=== PATIENT | female | born 1950 | race American Indian/Alaskan Native ===

== ENCOUNTER 2017-04-21 09:25 | Inpatient (IN) | payer MEDICARE, OTHER ==
[2017-04-21] MEDS ORDERED: Famotidine 20mg/50ml 50 ML IVPB STA (10:14)
[2017-04-21] MEDS ORDERED: Famotidine 20mg/50ml 20 MG/50 ML BAG IVPB STA (10:16)
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
[2017-04-21 10:37] LABS: BASO # 0.02 K/mm3 (0.0-2.0); BASO % 0.2 % (0.0-3.0); EOS # 0.2 (0.0-0.7); EOS % 1.7 % (1.5-5.0); GRAN % 71.5 % (50.0-68.0); HEMOGLOBIN 12.4 gm/dL (12.0-16.0); LYMPH % 21.8 % (22.0-35.0); MEAN CELL VOLUME 84.5 fL (80.0-105.0); MEAN CORPUSCULAR HEMOGLOBIN 27.9 pg (25.0-35.0); MEAN CORPUSCULAR HGB CONC 33.1 g/dl (31.0-37.0); MONO # 0.5 (0.1-0.6); MONO % 4.8 % (1.0-6.0); PLATELET COUNT 342 10^3/uL (120.0-450.0); RBC 4.44 10^6/uL (3.5-6.1); RED CELL DISTRIBUTION WIDTH 14.8 % (11.5-14.5); WHITE BLOOD COUNT 9.4 10^3/ul (4.5-11.0)
[2017-04-21 10:46] LABS: ALB/GLOB RATIO 1.1 (1.1-1.8); ALBUMIN 4.4 g/dL (3.0-4.8); ALT/SGPT 20 U/L (7-56); AST/SGOT 34 U/L (15-39); BLOOD UREA NITROGEN 8 mg/dL (7-21); CALCIUM 10.1 mg/dL (8.4-10.5); GFR AFRICAN-AMERICAN > 60; GFR NON-AFRICAN AMERICAN > 60; LIPASE 211 U/L (23-300)
--- NOTE | 2017-04-21 11:28 | CT ---
PROCEDURE: CT Abdomen and Pelvis without intravenous contrast HISTORY: ruq R flank pain r/o kid stone r/o cholecystitis COMPARISON: 04/07/2017 PET-CT TECHNIQUE: Without oral or IV contrast. Contrast Dose: Radiation dose: Total exam DLP = 1230 mGy-cm. This CT exam was performed using one or more of the following dose reduction techniques: Automated exposure control, adjustment of the mA and/or kV according to patient size, and/or use of iterative reconstruction technique. FINDINGS: LOWER THORAX: Multiple pulmonary nodules are seen the largest measuring 25 mm. LIVER: Several hypodense lesions are seen in the liver which were not apparent on the recent PET-CT. These are suspicious for metastatic disease. GALLBLADDER AND BILE DUCTS: Unremarkable. PANCREAS: There is enlargement of the pancreatic head similar to the previous exam. This could also be secondary to adjacent lymph nodes SPLEEN: Unremarkable. ADRENALS: Unremarkable. No mass. KIDNEYS AND URETERS: Unremarkable. No hydronephrosis. No solid mass. VASCULATURE: Unremarkable. No aortic aneurysm. BOWEL: Unremarkable. No obstruction. No gross mural thickening. APPENDIX: Unremarkable. Normal appendix. PERITONEUM: Unremarkable. No free fluid. No free air. LYMPH NODES: Possible conglomerate lymph node mass adjacent to the pancreatic head as noted on previous PET-CT BLADDER: Unremarkable. REPRODUCTIVE: Unremarkable. BONES: No acute fracture. OTHER FINDINGS: None. IMPRESSION: Multiple pulmonary nodules. New metastatic lesions in the liver. Mass within or adjacent to head of pancreas similar to recent PET-CT. No acute intra-abdominal findings
--- NOTE | 2017-04-21 14:36 | CARD ---
APPROVED REPORT EKG Measurement Heart [id number] SD [id number] <Conclusion> Normal sinus rhythm Nonspecific T wave abnormality Abnormal ECG
[2017-04-21] MEDS ORDERED: GlipiZIDE 10 mg SR Tab PO SCH (16:24)
[2017-04-21] MEDS: Insulin Lispro (humaLOG) LOW Coverage SC SCH ×2 (17:20→22:58)
[2017-04-21] MEDS: GlipiZIDE 10 mg SR Tab PO SCH (17:40)
--- NOTE | 2017-04-21 18:49 | CON ---
DATE: 04/21/2017 REFERRING PHYSICIAN: Dr. Ferrara. REASON FOR CONSULT: Chronic obstructive lung disease, multiple lung nodules, probably metastatic dis ease. HISTORY OF PRESENT ILLNESS: This is a 66-year-old female with history of chronic obstructive lung di sease, hypertension, hyperlipidemia, fibromyalgia, diabetes, obesity, sleep apnea syndrome but noncom pliant with the CPAP, smoker, history of alcohol abuse. Has abdominal pain. No dysuria. No leg carter n or leg swelling. PAST MEDICAL HISTORY: Chronic obstructive lung disease, obstructive sleep apnea syndrome, major depr ession, schizoaffective disorder, hypertension, hyperlipidemia, chronic obstructive lung disease, fib romyalgia, diabetes, diverticulitis, degenerative joint disease, history of alcohol abuse. SOCIAL HISTORY: Just recently stopped smoking and also recently stopped drinking alcohol. ALLERGIES: None known. FAMILY HISTORY: No significant cardiopulmonary disease reported. MEDICATIONS: She was given Zofran ER, also received ____ Toradol. HOME MEDICATIONS: Include Aldactone, Seroquel, Lyrica, nicotine, Singulair, metoprolol tartrate, met formin, Zestril, Xyzal, glipizide, Lopid, Lasix, Nexium, Cymbalta, Lipitor and Xanax p.r.n. REVIEW OF SYSTEMS: No headache, no rhinitis ____ short of breath with exertion. No chest pain, no n ausea. Does have nausea, abdominal pain. No dysuria. No leg pain or leg swelling. PHYSICAL EXAMINATION: GENERAL: Sitting up in a chair in no acute distress. VITAL SIGNS: Temp is 98, heart rate is 78, respiratory rate is 18, blood pressure 138/85, pulse ox 9 8% on room air. HEENT: Moist mucous membrane. Crowded airway. Mallampati score is 4. NECK: Supple. No JVD. LUNGS: Has a fair airflow with few rhonchi. HEART: S1, S2. ABDOMEN: Positive bowel sounds, nontender, nondistended. EXTREMITIES: There is no edema. NEUROLOGIC: Awake, alert, follows simple commands. LABORATORY DATA: Shows hemoglobin 12.4, hematocrit 37.5, WBC 9.4, platelet is 342. Sodium 143, pota ssium 2.9, chloride 107, bicarbonate 25, BUN 8, creatinine 0.6, glucose 143, calcium 10.1, total bili robertson 0.4, AST 34, ALT 20, alkaline phosphatase is 83, albumin is 4.4. Total protein 8.4, globulin i s 4.0. Lipase is 211. Stool occult blood has been negative in the past. Had a CAT scan of the abdo men and pelvis done in ER today which shows multiple pulmonary nodules, new metastatic lesions in the liver, mass within or adjacent to the head of the pancreas similar to the recent PET scan. ____ was done in 03/2017 which shows mild increase FDG uptake in the lung nodules suspicious for metastatic d isease, soft tissue mass lesion at the upper abdomen adjacent to the pancreatic head. IMPRESSION AND PLAN: Pancreatic head mass with nodules in the lungs, history of major depression, sc hizoaffective disorder, chronic obstructive lung disease, obstructive sleep apnea syndrome, diabetes, hypertension, noncompliant with the medication, history of alcohol abuse. We will get GI consult fo r possible biopsy, inhaled bronchodilator, gastric prophylaxis, DVT prophylaxis, Nicoderm patch. Con tinue home medication. Thank you and will follow with you. Linnea Stephen MD cc: [id number] TT: 04/21/2017 18:48:42 Confirmation # [id number] Dictation # [id number] [place]
[2017-04-21] MEDS ORDERED: Pneumococcal 23-Valent Vaccine IM ONE (19:19)
[2017-04-21 19:20] VITALS: BMI 38.6
[2017-04-21] MEDS: Albuterol-Ipratrop 3 mg / 0.5 (3 ml) UD IH SCH (19:49)
--- NOTE | 2017-04-21 20:14 | CON ---
DATE: 04/21/2017 This patient was seen and evaluated earlier. HISTORY OF PRESENT ILLNESS: This is a 66-year-old patient with a past medical history of schizophrenia, history of hypertension, dyslipidemia, chronic obstructive pulmonary disease, fibromyalgia, diabetes mellitus who presented to the Emergency Room with right-sided abdominal pain, right upper abdominal pain and back pain. The patient complains of nausea. She had a CAT scan done in the ER without p.o. or IV contrast, suspected to have a pancreatic mass and also some hepatic lesions. GI consult was requested to evaluate. The patient is extremely noncompliant. History of admissions in the past. These previous admissions reviewed. Admissions in the past for diverticulitis. The patient had an extensive workup in the past including MRI and CAT scan. No focal pancreatic lesion was noticed. The liver lesion appeared to be cystic at that time. Patient has been non compliant with followup SOCIAL HISTORY: Ex-smoker, history of excessive ETOH. ALLERGIES: No known drug allergies. FAMILY HISTORY: Noncontributory. REVIEW OF SYSTEMS: Positive as above. Other systems reviewed and negative. PHYSICAL EXAMINATION: GENERAL: The patient is lying on the bed, not in acute distress. VITAL SIGNS: Temperature is 97.9, pulse 92, blood pressure 184/113, respirations 18, blood pressure is 145/94. HEENT: Atraumatic, anicteric. NECK: Supple. HEART: S1, S2 heard. LUNGS: Bilateral air entry present. ABDOMEN: Soft, no obvious tenderness at this time. EXTREMITIES: No edema. No cyanosis. NEUROLOGIC: Alert, oriented. Moves all the extremities. LABORATORY DATA: Hemoglobin 12.4, hematocrit 37.5, WBC is 9.4, platelets 242. Chemistry is essentially unremarkable. LFTs are normal. The CAT scan of the abdomen and pelvis was reviewed. IMPRESSION: This 66-year-old patient was admitted with right-sided abdominal pain radiating to the back. The CT done in without p.o. or IV contrast reported multiple pulmonary nodules and a lesion in the liver and a mass within of the head of the pancreas similar to recent PET CT. PET CT shows mild increase in uptake in the lung nodules and also a soft tissue mass in the upper abdomen adjacent to the pancreatic head showing increased FDG uptake may represent conglomerate lymphadenopathy. IMPRESSION: 1. Differential diagnosis in our case should include pancreatic lesion, rule out lymphoma, rule out hepatic lesions, rule out mets or lung lesions. The patient would benefit from MRI of the abdomen with contrast to further evaluate. We will also consider endoscopy, ultrasound to evaluate the pancreatic lesion. 2. Pulmonary lesions; rule out metastatic disease. 3. Hepatic lesions, rule out cysts; history of cysts, rule out metastatic disease. 4. Other comorbidities, the patient has a history of ETOH abuse in the past, history of diabetes mellitus, obstructive sleep apnea, hypertension. We will continue to closely follow up her care and suggest further management based on the clinical course. Thang Merchant MD cc: [id number] TT: 04/21/2017 20:13:26 Confirmation # [id number] Dictation # [id number] vera MURGUIA
[2017-04-21] MEDS: HYDROmorphone 0.5 mg/0.5 ml ISec IVP PRN (20:33)
[2017-04-22] MEDS: Albuterol-Ipratrop 3 mg / 0.5 (3 ml) UD IH SCH ×4 (01:11→20:56)
--- NOTE | 2017-04-22 01:48 | CP.PCM.PN ---
Subjective - Date & Time of Evaluation Date of Evaluation: 04/22/17 Time of Evaluation: 01:47 - Subjective Subjective: Nurse calls and tells that patient has abdominal pain, back pain and requesting pain medicine. She received 0.5 mg of dilaudid at 8.30 PM. Has an order for dilaudid 0.5mg IV Q6H prn. Pain medication is not due until 02:30 AM. Toradol 30 mg IV was orderd. When I had chance went to evaluate patient.She is pain free, resting comfortably. ROS:Could not get because patient is asleep. This 66 year old woman was admitted Has PMH of DM II, hepatitis C, fribromyalgia, COPD, ZAFAR,anxiety, depression, schizophrenia, appendectomy, colon resection. Objective - Vital Signs/Intake and Output Vital Signs (last 24 hours): Temp Pulse Resp BP Pulse Ox 97.9 F 90 18 145/94 H 97 04/21/17 18:52 04/21/17 19:49 04/21/17 18:52 04/21/17 19:00 04/21/17 16:00 Intake and Output: 04/21/17 04/22/17 18:59 06:59 Intake Total 900 Balance 900 - Medications Medications: Current Medications Albuterol/Ipratropium (Duoneb 3 Mg/0.5 Mg (3 Ml) Ud) 3 ml IH [id number] [facility] Last Admin: 04/22/17 01:11 Dose: Not Given Alprazolam (Xanax) 0.5 mg PO DAILY [facility] PRN Reason: Protocol Alprazolam (Xanax) 1 mg PO HS [facility] PRN Reason: Protocol Last Admin: 04/21/17 21:40 Dose: 1 mg Atorvastatin Calcium (Lipitor) 10 mg PO DIN [facility] Last Admin: 04/21/17 16:45 Dose: 10 mg Duloxetine HCl (Cymbalta) 30 mg PO DAILY [facility] Last Admin: 04/21/17 17:40 Dose: 30 mg Enoxaparin Sodium (Lovenox) 40 mg SC DAILY [facility] PRN Reason: Protocol Famotidine (Pepcid) 40 mg PO 1000 [facility] Furosemide (Lasix) 40 mg PO DAILY [facility] Last Admin: 04/21/17 16:45 Dose: 40 mg Gemfibrozil (Lopid) 600 mg PO BID [facility] Last Admin: 04/21/17 17:40 Dose: 600 mg Glipizide (Glucotrol Xl) 10 mg PO DAILY [facility] Last Admin: 04/21/17 17:40 Dose: 10 mg Hydromorphone HCl (Dilaudid) 0.5 mg IVP Q6H PRN PRN Reason: Pain, Mild (1-3) Last Admin: 04/21/17 20:33 Dose: 0.5 mg Insulin Human Lispro (Humalog Low) 0 units SC [facility] PRN Reason: Protocol Last Admin: 04/21/17 22:58 Dose: Not Given Lisinopril (Zestril) 10 mg PO DAILY [facility] Last Admin: 04/21/17 17:40 Dose: 10 mg Loratadine (Claritin) 10 mg PO DAILY [facility] Metoprolol Tartrate (Lopressor) 25 mg PO DAILY [facility] Last Admin: 04/21/17 16:46 Dose: 25 mg Montelukast Sodium (Singulair) 10 mg PO DAILY [facility] Nicotine (Nicoderm Cq) 1 patch TD DAILY [facility] Ondansetron HCl (Zofran Inj) 4 mg IVP Q4H PRN PRN Reason: Nausea/Vomiting Pantoprazole Sodium (Protonix Ec Tab) 40 mg PO DAILY [facility] Pregabalin (Lyrica) 75 mg PO DAILY [facility] Last Admin: 04/21/17 17:40 Dose: 75 mg Quetiapine Fumarate (Seroquel) 200 mg PO HS [facility] PRN Reason: Protocol Last Admin: 04/21/17 21:32 Dose: 200 mg Spironolactone (Aldactone) 25 mg PO DAILY [facility] Last Admin: 04/21/17 17:41 Dose: 25 mg - Constitutional Appears: Well, No Acute Distress - Head Exam Head Exam: ATRAUMATIC, NORMAL INSPECTION, NORMOCEPHALIC - Eye Exam Eye Exam: Normal appearance - ENT Exam ENT Exam: Normal External Ear Exam - Neck Exam Neck Exam: Normal Inspection - Respiratory Exam Respiratory Exam: NORMAL BREATHING PATTERN - Cardiovascular Exam Cardiovascular Exam: absent: JVD - GI/Abdominal Exam GI & Abdominal Exam: absent: Distended - Rectal Exam Rectal Exam: Deferred - Extremities Exam Extremities Exam: Normal Inspection - Back Exam Back Exam: NORMAL INSPECTION - Neurological Exam Additional comments: Asleep. - Psychiatric Exam Additional comments: Asleep. - Skin Skin Exam: Normal Color Assessment and Plan - Assessment and Plan (Free Text) Assessment: Abdominal pain. Back pain. COPD. DM II. Anxiety. Depression. ZAFAR. Plan: Toradol 30 mg IV was given which helped her. Continue present management.
[2017-04-22 07:52] LABS: HEMOGLOBIN 11.4 gm/dL (12.0-16.0); MEAN CELL VOLUME 84.7 fL (80.0-105.0); MEAN CORPUSCULAR HEMOGLOBIN 27.2 pg (25.0-35.0); MEAN CORPUSCULAR HGB CONC 32.1 g/dl (31.0-37.0); RBC 4.19 10^6/uL (3.5-6.1); RED CELL DISTRIBUTION WIDTH 14.7 % (11.5-14.5); WHITE BLOOD COUNT 7.8 10^3/ul (4.5-11.0)
[2017-04-22 08:08] LABS: ALB/GLOB RATIO 1.1 (1.1-1.8); ALBUMIN 3.8 g/dL (3.0-4.8); ALT/SGPT 18 U/L (7-56); AST/SGOT 34 U/L (15-39); BLOOD UREA NITROGEN 11 mg/dL (7-21); CALCIUM 9.2 mg/dL (8.4-10.5); GFR AFRICAN-AMERICAN > 60; GFR NON-AFRICAN AMERICAN > 60
[2017-04-22] MEDS: Insulin Lispro (humaLOG) LOW Coverage SC SCH ×4 (08:19→22:00)
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
[2017-04-22] MEDS: Pantoprazole 40 mg EC Tab PO SCH (09:24)
[2017-04-22] MEDS: HYDROmorphone 0.5 mg/0.5 ml ISec IVP PRN ×2 (09:24→16:39)
[2017-04-22] MEDS: Enoxaparin 40 mg Syringe SC SCH (09:25)
[2017-04-22] MEDS: GlipiZIDE 10 mg SR Tab PO SCH (09:27)
[2017-04-22] MEDS ORDERED: GlipiZIDE 10 mg SR Tab PO SCH (10:00)
[2017-04-22] MEDS ORDERED: Potassium Chloride 10 mEq ER Tab PO STA (10:16)
--- NOTE | 2017-04-22 11:51 | PN ---
DATE: 04/22/2017 Seen and examined at the bedside earlier this morning. The patient with no new complaints or acute o vernight events reported. The patient does still have abdominal discomfort. She tolerated all of he r breakfast. Awaiting MRI. VITAL SIGNS: Temperature is 97.9, blood pressure 118/81, pulse 81, respirations 18, 93 on room air. LABORATORY DATA: WBC 7.8, hemoglobin is 11.4, hematocrit is 35.5, platelets are 304. Sodium 140, K 3.5, BUN 11, creatinine is 0.7. LFTs are within normal limits. PHYSICAL EXAMINATION: HEENT: Sclerae are anicteric. NECK: Supple. CARDIAC: S1, S2. LUNGS: Decreased breath sounds but good aeration. ABDOMEN: With bowel sounds, soft. No tenderness on palpation at this time. No rebound or guarding. EXTREMITIES: No edema. NEUROLOGIC: Alert, awake, and oriented. ASSESSMENT: A 66-year-old female with complaints of right-sided abdominal pain, status post CT scan of abdomen and pelvis reporting pulmonary nodules and lesions in the liver and mass at the head at th e pancreas, similar to recent PET CT done. Rule out any pancreatic lesions, lymphoma, hepatic lesion s or mets. The patient is awaiting to go for MRI of the abdomen with contrast for further evaluation. We will p ut her on a clear liquid diet for now until she goes for the MRI. The patient has history of diabete s mellitus, obesity, ETOH in the past. PLAN: Consider endoscopic ultrasound to further evaluate this pancreatic lesion. N.p.o. after midni ght. Follow up MRI of the abdomen. The patient is on Lovenox. The patient is also on Protonix. Fo r now, we will discontinue the Pepcid in the morning as patient is already on Protonix 40 daily. If patient needs additional H2 delmy, reconsider at night. The patient was seen and case discussed [facility] Dr. Merchant. Amelia MACIEL cc: [id number] TT: 04/22/2017 11:50:26 Confirmation # [id number] Dictation # [id number] royal
[2017-04-22] MEDS ORDERED: Gadodiamide 287 MG/ML VIAL (20ML) IV ONE (13:14)
--- NOTE | 2017-04-22 16:00 | MRI ---
PROCEDURE: Magnetic Resonance Cholangiopancreatography +MR of the abdomen with and without contrast HISTORY: Rule out mass COMPARISON: PET-CT 04/07/2017. TECHNIQUE: Multiplanar, multisequence MR images of the abdomen were obtained, including heavily T2 weighted MRCP images of the biliary system. Rotating maximum intensity projection images of the biliary system were generated. 15 cc of Omniscan FINDINGS: MRCP: The common bile duct is of a normal caliber. No evidence of choledocholithiasis. No intrahepatic biliary ductal dilatation. LIVER: Multiple liver lesions are seen in the periphery of the right and left lobes of the liver. On the postcontrast study these lesions have a nonenhancing central portion in a ring-enhancing peripheral portion. These range in size from 18 at 36 mm in diameter. GALLBLADDER: Unremarkable. SPLEEN: Unremarkable. PANCREAS: There is a arlet mass adjacent to the head of the pancreas in the portal vein. In total this mass measures 7.3 cm AP x 5.2 cm wide as seen on image 14 series 34 and 5. On the postcontrast study the alret mass posterior to the uncinate process and portal vein show some central necrosis. This node measures 3.4 x 4.7 cm as seen on image 39 of series 1704. ADRENALS: Unremarkable. KIDNEYS: Unremarkable. AORTA: No aneurysm. ASCITES: None. OTHER FINDINGS: As noted on recent CT there are multiple lung nodules. IMPRESSION: Large arlet mass adjacent to the head of the pancreas and portal vein. Multiple metastatic lesions in the liver.
[2017-04-22] MEDS: levoFLOXacin 500 MG TAB PO SCH (16:39)
--- NOTE | 2017-04-22 21:36 | PN ---
DATE: 04/22/2017 ADDENDUM This is an addendum to the GI progress report dictated by Amelia Wright APN. The patient was seen and evaluated earlier today. The patient feeling much better. Tolerating the d iet. Still complains of some discomfort in the right side of the abdomen upper quadrant. IMPRESSION: Requested for the MRI of the abdomen with MRCP, which the report was reviewed. The abraham ent would benefit from the upper gastrointestinal EUS and endoscopy with an endoscopic ultrasound in a.m. Thank you very much for allowing us to participate in the care of the patient. Thang Merchant MD cc: [id number] TT: 04/22/2017 21:35:24 Confirmation # [id number] Dictation # [id number] sn
--- NOTE | 2017-04-22 23:43 | PN ---
DATE: 04/22/2017 REFERRING PHYSICIAN: Dr. Ferrara. SUBJECTIVE: The patient is sitting on side of the bed, night was unremarkable. Complaining about ab dominal epigastric pain, no cough, no sputum production, no nausea, no dysuria. No leg pain or leg s welling. OBJECTIVE: GENERAL: No acute distress. VITAL SIGNS: Temperature is 98, heart rate is 67, respiratory rate is 18, blood pressure 165/61, pul se ox 96% on room air. HEENT: Moist mucous membrane. Crowded airway. NECK: Supple, no JVD. LUNGS: Have a fair airflow with rhonchi. HEART: S1, S2. ABDOMEN: Soft. Mild tenderness in epigastric area. EXTREMITIES: There is no edema. NEUROLOGIC: Awake, alert, follows simple commands. MEDICATIONS: He is on Aldactone 25 mg daily, Claritin 10 mg daily, Cymbalta 30 mg daily, hydromorpho ne 0.5 mg q. 6 hours p.r.n., DuoNeb q. 6 hours, Glucotrol-XL 10 mg daily, insulin coverage, Lasix 4 0 mg daily, Levaquin 500 mg daily, Lipitor 10 mg daily, Lopid 600 mg twice a day, metoprolol tartrat e 25 mg daily, Lovenox 40 mg daily, Lyrica 75 mg daily, NicoDerm patch daily, Protonix 40 mg daily, S eroquel 200 mg at bedtime, Singulair 10 mg daily, Xanax 1 mg at bedtime, also Xanax is 0.5 mg daily, Zestril 10 mg daily, Zofran on a p.r.n. basis. LABORATORY DATA: Shows hemoglobin 11.4, hematocrit 35.5, WBC 7.8, platelet is 304. Sodium 140, pota ssium 3.5, chloride 106, bicarbonate 26, BUN 11, creatinine 0.7, glucose 68, calcium 9.2. AST 34, AL T 18, alkaline phosphatase is 67. Albumin is 3.8. Had an MRCP done today, which shows large nodular mass to the head of the pancreas and portal vein, multiple metastatic lesions in the liver rep orted. IMPRESSION AND PLAN: Pancreatic head mass, also with multiple lung nodules, liver lesions, history o f major depression, schizoaffective disorder, chronic obstructive lung disease, obstructive sleep hat checker ea syndrome, diabetes, hypertension, noncompliance with medication and followup, sleep apnea precauti on need close cardiopulmonary monitoring while sedated. Keep head elevated at 45 degrees. Gas tric prophylaxis. Deep venous thrombosis prophylaxis. Fall precaution. Thank you and will follow w ith you. Linnea Stephen MD cc: [id number] TT: 04/22/2017 23:42:42 Confirmation # [id number] Dictation # [id number] ln
[2017-04-23] MEDS: HYDROmorphone 0.5 mg/0.5 ml ISec IVP PRN ×3 (04:19→23:47)
[2017-04-23] MEDS: Albuterol-Ipratrop 3 mg / 0.5 (3 ml) UD IH SCH ×3 (07:39→19:51)
[2017-04-23 07:52] LABS: BASO # 0.02 K/mm3 (0.0-2.0); BASO % 0.2 % (0.0-3.0); EOS # 0.2 (0.0-0.7); EOS % 1.9 % (1.5-5.0); GRAN # 6.22 (1.4-6.5); HEMOGLOBIN 11.8 gm/dL (12.0-16.0); LYMPH # 1.8 (1.2-3.4); LYMPH % 21.3 % (22.0-35.0); MEAN PLATELET VOLUME 8.8 fl (7.0-11.0); MONO # 0.4 (0.1-0.6); MONO % 4.6 % (1.0-6.0); PLATELET COUNT 311 10^3/uL (120.0-450.0); RBC 4.21 10^6/uL (3.5-6.1); RED CELL DISTRIBUTION WIDTH 14.6 % (11.5-14.5); WHITE BLOOD COUNT 8.6 10^3/ul (4.5-11.0)
[2017-04-23 08:01] LABS: ALB/GLOB RATIO 1.1 (1.1-1.8); ALBUMIN 3.8 g/dL (3.0-4.8); ALT/SGPT 22 U/L (7-56); AST/SGOT 49 U/L (15-39); BLOOD UREA NITROGEN 9 mg/dL (7-21); CALCIUM 9.4 mg/dL (8.4-10.5); GFR AFRICAN-AMERICAN > 60; GFR NON-AFRICAN AMERICAN > 60
[2017-04-23 08:06] LABS: INR 1.04 (0.93-1.08); PARTIAL THROMBOPLASTIN TIME 26.1 Seconds (23.7-30.8); PROTHROMBIN TIME 11.2 Seconds (9.9-11.8)
[2017-04-23] MEDS: Insulin Lispro (humaLOG) LOW Coverage SC SCH ×4 (08:31→21:48)
--- NOTE | 2017-04-23 08:36 | PN ---
DATE: 04/22/2017 SUBJECTIVE: The patient was seen and examined on the bedside on 04/22/2017. Her boyfriend was sitting on the bedside. Getting Dilaudid but still complaining about abdominal pain. Was supposed to go for endoscopy. No fever, no chills, and no dysuria. PHYSICAL EXAMINATION: VITAL SIGNS: Temperature 98, heart rate 67, respiratory rate 18, blood pressure 120 /61, pulse oximetry 96% on room air. HEENT: Head normocephalic, atraumatic. Eyes: PERRLA. Extraocular muscles intact. Conjunctivae are clear. Nose patent. Mucous membranes moist. NECK: Supple. No carotid bruit, JVD or thyromegaly. CHEST: Bilaterally symmetrical. HEART: S1, S2 positive. LUNGS: Clear to auscultation. ABDOMEN: Soft. Bowel sounds present. No organomegaly. EXTREMITIES: No edema, no cyanosis. NEUROLOGIC: The patient is awake, alert, moving all 4 extremities. MEDICATIONS: Aldactone, Claritin, Cymbalta, hydromorphone, DuoNeb, Glucotrol, insulin, Lasix, Levaquin, Lipitor, Lopid, metoprolol, Lovenox, Lyrica, Nicoderm patch, Protonix, Seroquel, Singulair, Xanax, Zestril, Zofran. LABORATORY DATA: Hemoglobin 11.4, hematocrit 35.5, white blood cells 7.8, platelets 304. Sodium 140, potassium 3.5, BUN 11, creatinine 0.7. AST 34, ALT 18. Went for MRCP today which shows a large nodular mass to the head of pancreatic and portal vein, multiple metastatic lesions on the liver reported. ASSESSMENT AND PLAN: The patient is a 66-year-old lady with parapancreatic head mass, also with multiple lung nodules and liver lesions; history of major depression, schizoaffective disorder, obesity, chronic obstructive lung disease , history of ethanol abuse, obstructive sleep apnea syndrome; diabetes mellitus , noncompliant with medication and followup. With sleep apnea precautions, gastric prophylaxis, deep vein thrombosis prophylaxis, fall precautions. I reviewed Dr. Stephen's notes. I reviewed Dr. Merchant's notes also. According to Dr. Merchant, the patient would get benefit with upper gastrointestinal or EUS and endoscopy with endoscopic ultrasound in the a.m. Reviewed Amelia Wright ' notes also. MRCP report reviewed. Dr. Lindo saw the patient for abdominal pain and got stat dose of Dilaudid 0.5 mg at 8:30 p.m. ordered. Repeat labs. Will follow up. Georgina Ferrara MD cc: [id number] TT: 04/23/2017 08:35:28 Confirmation # [id number] Dictation # [id number] mn MTDD
[2017-04-23] MEDS: levoFLOXacin 500 MG TAB PO SCH (09:38)
[2017-04-23] MEDS: Pantoprazole 40 mg EC Tab PO SCH (09:41)
[2017-04-23] MEDS: GlipiZIDE 10 mg SR Tab PO SCH (09:41)
[2017-04-23] MEDS ORDERED: Propofol 10 mg/ml Inj (20 ML) ONE (14:54)
[2017-04-23] MEDS ORDERED: Succinylcholine 200 mg/10 ml Inj IV ONE (14:55)
[2017-04-23] MEDS ORDERED: Rocuronium 10 mg/ml (5 ml) ONE (14:55)
[2017-04-23] MEDS ORDERED: Sevoflurane - Inhalation Anesthetic Liq (250 ml) ONE (14:55)
--- NOTE | 2017-04-23 20:21 | PN ---
DATE: 04/23/2017 SUBJECTIVE: The patient is seen and examined on the bedside, still complaining about abdominal pain, sometimes coughing. No nausea, vomiting, or diarrhea. No hematuria or hematochezia. No swelling of the legs. No chest pain or palpitations. PHYSICAL EXAMINATION: VITAL SIGNS: Temperature 98, pulse 97, blood pressure 140/73, respiratory rate 18. HEAD: Normocephalic, atraumatic. EYES: PERRLA. Extraocular muscles intact. Conjunctivae are clear. Nose is patent. NECK: Supple. No carotid bruit, JVD or thyromegaly. CHEST: Bilaterally symmetrical. HEART: S1, S2 positive. LUNGS: Clear to auscultation. ABDOMEN: Soft, tender in all four quadrants. EXTREMITIES: Negative for edema, no cyanosis. NEUROLOGIC: The patient is awake, alert and moving all 4 extremities. No focal deficits. MEDICATIONS: Aldactone, Claritin, Cymbalta, Dilaudid, DuoNeb, glipizide, insulin, Lasix, Glucotrol, Levaquin, Lopid, Lopressor, Lovenox, Nicoderm patch , Protonix, Seroquel, Singulair, Xanax, Zestril, Zofran. LABORATORY DATA: White blood cells 8.6, hemoglobin 11.8, hematocrit 35.8, platelets 311. ASSESSMENT AND PLAN: The patient is a 66-year-old lady who came with abdominal pain, did esophagogastroduodenoscopy. EGD showed normal EGD. EUS shows fatty pancreatic/celiac lymph nodes. He was noted. Discussion done with Dr. Merchant. According to him, it looks like the patient has lymphoma, needs oncology consult. History of diabetes mellitus, pancreatic head mass, depression, schizoaffective disorder, chronic obstructive lung disease, obstructive sleep apnea syndrome, noncompliant with medication, was actively smoking and drinking. Sleep apnea precautions. Gastric prophylaxis and deep vein thrombosis prophylaxis. Will call oncology consult. Continue pain medication. Reviewed Dr. Stephen's notes. Gastrointestinal and deep venous thrombosis prophylaxis. Will followup. Georgina Ferrara MD cc: [id number] TT: 04/23/2017 20:20:23 Confirmation # [id number] Dictation # [id number] dn MTDD
[2017-04-23] MEDS ORDERED: Levalbuterol 1.25 MG/3 ML Inhal Soln UD IH PRN (21:44)
[2017-04-23] MEDS: Sodium Chloride 0.9% 1,000 ML IV SCH (21:49)
--- NOTE | 2017-04-23 21:57 | PN ---
DATE: 04/23/2017 REFERRING PHYSICIAN: Dr. Ferrara. SUBJECTIVE: She is examined and seen in surgical waiting area, scheduled for endoscopy ____ ultrasou nd biopsy of the pancreatic mass. She feels okay, no significant cough, no shortness of breath. Mild abdominal pain. No dysuria. No leg pain or leg swelling. OBJECTIVE: GENERAL: No acute distress. VITAL SIGNS: Temperature is 98, heart rate is 95, respiratory rate is 18, blood pressure 130/90, pul se ox 92% on room air. HEENT: Moist mucous membranes. Crowded airway. Mallampati score is 4. NECK: Short, thick neck. LUNGS: Has a fair airflow with few rhonchi. HEART: S1, S2. ABDOMEN: Soft, nontender. No organomegaly. EXTREMITIES: There is no edema. NEUROLOGIC: Awake, alert, follows simple commands. MEDICATIONS: She is on Aldactone 25 mg daily, Claritin 10 mg daily, Cymbalta 30 mg daily, Dilaudid 0 .5 mg IV q. 6 hours p.r.n., DuoNeb q. 6 hours, glipizide 10 mg daily, insulin coverage, Lasix 40 mg d aily, Levaquin 500 mg daily, Lipitor 10 mg daily, Lopid 600 mg twice a day, metoprolol tartrate 25 mg daily, Lovenox 40 mg daily, Lyrica 75 mg daily, NicoDerm patch daily, Protonix 40 mg daily, Seroquel 200 mg at bedtime, Singulair 10 mg daily, IV fluid normal saline 100 mL per hour, Xanax 1 mg at bedt milli, Xanax 0.5 mg daily, Zestril 10 mg daily, Zofran on a p.r.n. basis. LABORATORY DATA: Shows hemoglobin 11.8, hematocrit 35.8, WBC 8.6, platelet 311. INR 1.04, PTT is 26 . Sodium 141, potassium 4.0, chloride 106, bicarbonate 27, BUN 9, creatinine 0.7, glucose 126, calci um 9.4, AST 49, ALT 22, and alkaline phosphatase is 70, albumin is 3.8. Had endoscopy done, which shows many malignant appearing lymph nodes that are visualized in the anuj c region, ____ pancreatic region and franko hepatica region. Biopsy was done. IMPRESSION AND PLAN: Pancreatic head mass, has lesions in the liver and multiple nodules in the lung , status post biopsy, depression, schizoaffective disorder, chronic obstructive lung disease, obstruc tive sleep apnea syndrome, diabetes, hypertension. Case discussed with Dr. Merchant. Pulmonary poin t of view, continue bronchodilator, keep head at 45 degree, Nicoderm patch. ____. Close cardiopulmo nary monitoring. Encourage CPAP use at nighttime. Gastric prophylaxis, deep venous thrombosis proph ylaxis. Thank you and will follow with you. Linnea Stephen MD cc: [id number] TT: 04/23/2017 21:57:32 Confirmation # [id number] Dictation # [id number] jn
[2017-04-24] MEDS: Albuterol-Ipratrop 3 mg / 0.5 (3 ml) UD IH SCH ×4 (02:30→20:00)
[2017-04-24] MEDS: HYDROmorphone 0.5 mg/0.5 ml ISec IVP PRN ×3 (05:21→20:15)
[2017-04-24] MEDS: Insulin Lispro (humaLOG) LOW Coverage SC SCH ×4 (08:25→22:00)
[2017-04-24] MEDS: GlipiZIDE 10 mg SR Tab PO SCH (10:25)
[2017-04-24] MEDS: levoFLOXacin 500 MG TAB PO SCH (10:26)
[2017-04-24] MEDS: Pantoprazole 40 mg EC Tab PO SCH (10:26)
[2017-04-24] MEDS: Enoxaparin 40 mg Syringe SC SCH (10:28)
[2017-04-24] MEDS: Sodium Chloride 0.9% 1,000 ML IV SCH ×2 (10:35→14:45)
--- NOTE | 2017-04-24 20:27 | PN ---
DATE: 04/24/2017 The patient seen and examined on the bedside, looks comfortable. Her son was sitting on the bedside also. Still complaining about abdominal pain. Feeling better. Cough is better. Shortness of breath is better. No nausea, vomiting, or diarrhea. No hematuria or hematochezia. No swelling of the legs. No chest pain, no palpitations. PHYSICAL EXAMINATION: VITAL SIGNS: Temperature 98.2, heart rate 94, respiratory rate 18, blood pressure 130/90, pulse oximetry 92% on room air. HEAD: Normocephalic, atraumatic. Eyes: PERRLA. Extraocular muscles intact. Conjunctivae clear. Nose patent. Mucous membranes moist. NECK: Supple. No carotid bruit, JVD or thyromegaly. CHEST: Bilaterally symmetrical. HEART: S1, S2 positive. LUNGS: Clear to auscultation. ABDOMEN: Soft. Bowel sounds. No organomegaly. EXTREMITIES: No edema, no cyanosis. NEUROLOGIC: The patient is awake, alert, moving all 4 extremities. No focal deficit. MEDICATIONS: Aldactone, Claritin, Cymbalta, Dilaudid, DuoNeb, insulin coverage , Levaquin, Lipitor, Lopid, metoprolol, Lovenox, Lyrica, Nicoderm patch, Protonix, Seroquel, Singulair, IV fluids, Xanax, Zestril, Zofran. LABORATORY DATA: Hemoglobin 11.8, hematocrit 35.8, white blood cell 8.6, platelets 311. Sodium 141, potassium 4.0, BUN 9, creatinine 0.7, glucose 126, sodium 9.4. AST 49, ALT 22. ASSESSMENT AND PLAN: The patient is a 66-year-old female with pancreatic head mass. Has lesion in the liver and multiple nodules in the lung, status post biopsy. There were multiple lymph nodes in the abdomen, as per Dr. Merchant. Has depression, schizoaffective disorder, chronic obstructive lung disease, obstructive sleep apnea syndrome, diabetes mellitus, hypertension, noncompliant. Length of time discussion done with Dr. Merchant. Reviewed Dr. Stephen's notes. Continue present treatment, bronchodilators. Keep head elevated at 45 degrees, Nicoderm patch. Close cardiopulmonary monitoring. The patient has a stye on both eyes and for that she is getting Levaquin. Gastrointestinal and deep vein thrombosis prophylaxis. Will repeat labs. We will follow up. Georgina Ferrara MD cc: [id number] TT: 04/24/2017 20:27:11 Confirmation # [id number] Dictation # [id number] royal MURGUIA
--- NOTE | 2017-04-24 20:32 | PN ---
DATE: 04/24/2017 REFERRING PHYSICIAN: Dr. Ferrara. SUBJECTIVE: She is sitting side of the bed, feels okay. Cough is decreased. No nausea, no vomiting . Mild abdominal pain. No dysuria. No leg pain or leg swelling. OBJECTIVE: GENERAL: In no acute distress. VITAL SIGNS: Temp is 98, heart rate is 93, respiratory rate is 20, blood pressure 131/78, pulse ox 9 8% on nasal cannula. HEENT: Moist mucous membranes. Crowded airway. Mallampati score is 4. NECK: Supple. No JVD. LUNGS: Has a fair airflow with a few rhonchi. HEART: S1, S2. ABDOMEN: Soft, nontender, no organomegaly. EXTREMITIES: No edema. NEUROLOGIC: Able to follow simple commands. MEDICATIONS: She is on Aldactone 25 mg daily, Claritin 10 mg daily, Cymbalta 30 mg daily, Dilaudid 0 .5 mg q.6 hours p.r.n., DuoNeb q.6 hour around the clock, glipizide 10 mg daily, insulin coverage, La six 40 mg daily, Levaquin 500 mg daily, Lipitor 10 mg daily, Lopid 600 mg twice a day, metoprolol tar trate 25 mg daily, Lovenox 40 mg subQ daily, Lyrica 75 mg daily, Nicoderm patch daily, Protonix 40 mg daily, Seroquel 200 mg at bedtime, Singulair 10 mg daily, IV fluid normal saline at 100 mL per hour, Xanax 1 mg at bedtime, also Xanax 0.5 mg daily, Xopenex inhaler q.2 hour p.r.n., lisinopril 10 mg da salazar, Zofran p.r.n. basis. IMPRESSION AND PLAN: Pancreatic head mass, lesions in the liver and lungs, status post pancreatic ma ss biopsy, depression, schizoaffective disorder, chronic obstructive pulmonary disease, obstructive s leep apnea syndrome, diabetes, hypertension. Pulmonary point of view, doing okay. Continue bronchod ilator. Keep head elevated at 45 degrees. Nicoderm patch. Pain management. Awaiting for pathology report for further treatment. Thank you and will follow with you. Linnea Stephen MD cc: [id number] TT: 04/24/2017 20:32:31 Confirmation # [id number] Dictation # [id number] dn
[2017-04-25] MEDS: Albuterol-Ipratrop 3 mg / 0.5 (3 ml) UD IH SCH ×6 (01:14→20:30)
--- NOTE | 2017-04-25 01:17 | PN ---
DATE: 04/24/2017 This patient was seen and evaluated earlier. The patient still complains of abdominal pain, epigastric and right upper quadrant. PHYSICAL EXAMINATION: VITAL SIGNS: Temperature is 98.1, pulse 77, blood pressure 138/95, respirations 20, O2 saturation 98%. HEENT: Atraumatic, anicteric. NECK: Supple. HEART: S1, S2 heard. LUNGS: Bilateral air entry present. ABDOMEN: Soft. There was tenderness present in the epigastric right upper quadrant area. EXTREMITIES: No edema, no cyanosis. NEUROLOGIC: Alert, oriented. Moves all the extremities. LABORATORY DATA: Hemoglobin 11.8, hematocrit WBC is 8.6, platelets 311. Chemistry is essentially unremarkable except for the blood glucose IMPRESSION: This 66-year-old patient admitted with suspected pancreatic large masses vs lymph nodes adjacent. The patient also has a history of chronic hepatitis C, The patient has chronic obstructive lung disease. The patient has depression, anxiety, schzoaffective disorder admitted with worsening of the pain in the epigastric and right upper quadrant. The patient had a lung nodule, hepatic lesion had a positive PET scan. Underwent yesterday upper GI endoscopy and endoscopic ultrasound with FNA . She was found to have multiple lymph nodes in the celiac periportal and also perpancreatic area. Visualized the pancreas, although did not reveal any obvious mass. These lymph nodes are measuring up to 3-4 cm the largest one, the smaller one is around a centimeter, in size. Multiple multiple fine needle aspiration biopsies were taken. The specimen also sent for flow cytometry and cell block. The patient would benefit from hematology/oncology evaluation. Thank you very much for allowing us to participate in the care of the patient. We will continue to closely follow up. We will advance the diet today. Thang Merchant MD cc: [id number] TT: 04/24/2017 23:49:22 Confirmation # [id number] Dictation # [id number] aubree MURGUIA
--- NOTE | 2017-04-25 02:06 | CP.PCM.PN ---
Subjective - Date & Time of Evaluation Date of Evaluation: 04/25/17 Time of Evaluation: 02:05 - Subjective Subjective: Seen at bedside. As per nurse has sob. Patient states that she woke up with sob.Has no other complaints. Last nebulizer treatment she has had was at 8 pm last night as per her. Denies nausea, sweating, chest pain, palpitation. States that neb treatment does not help her. Refused BiPAP. Medical record was reviewed. This 66 year old woman was admitted for possible liver , lungs metastasis , sent by PMD to the ER. Has PMH of DM II, hepatitis C, fribromyalgia, COPD, ZAFAR,anxiety, depression, schizophrenia, appendectomy, colon resection. Objective - Vital Signs/Intake and Output Vital Signs (last 24 hours): Temp Pulse Resp BP Pulse Ox 98.1 F 77 20 138/95 H 98 04/24/17 16:53 04/24/17 16:53 04/24/17 16:53 04/24/17 16:53 04/24/17 16:53 Last Vital Signs Temp 98.6 F 04/25/17 02:11 Pulse 86 04/25/17 02:11 Resp 20 04/24/17 16:53 BP 141/87 04/25/17 02:11 Pulse Ox 94 L 04/25/17 02:11 Intake and Output: 04/24/17 04/25/17 18:59 06:59 Intake Total 840 Balance 840 - Medications Medications: Current Medications Albuterol/Ipratropium (Duoneb 3 Mg/0.5 Mg (3 Ml) Ud) 3 ml IH O1PEJPY [facility] Last Admin: 04/25/17 01:14 Dose: Not Given Alprazolam (Xanax) 0.5 mg PO DAILY [facility] PRN Reason: Protocol Last Admin: 04/24/17 10:26 Dose: 0.5 mg Alprazolam (Xanax) 1 mg PO HS [facility] PRN Reason: Protocol Last Admin: 04/24/17 21:39 Dose: 1 mg Atorvastatin Calcium (Lipitor) 10 mg PO DIN [facility] Last Admin: 04/24/17 17:48 Dose: 10 mg Duloxetine HCl (Cymbalta) 30 mg PO DAILY [facility] Last Admin: 04/24/17 10:27 Dose: 30 mg Enoxaparin Sodium (Lovenox) 40 mg SC DAILY [facility] PRN Reason: Protocol Last Admin: 04/24/17 10:28 Dose: 40 mg Furosemide (Lasix) 40 mg PO DAILY [facility] Last Admin: 04/24/17 10:25 Dose: 40 mg Gemfibrozil (Lopid) 600 mg PO BID [facility] Last Admin: 04/24/17 17:48 Dose: 600 mg Glipizide (Glucotrol Xl) 10 mg PO DAILY [facility] Last Admin: 04/24/17 10:25 Dose: 10 mg Hydromorphone HCl (Dilaudid) 0.5 mg IVP Q6H PRN PRN Reason: Pain, Mild (1-3) Last Admin: 04/24/17 20:15 Dose: 0.5 mg Sodium Chloride (Sodium Chloride 0.9%) 1,000 mls @ 100 mls/hr IV .Q10H [facility] Last Admin: 04/24/17 14:45 Dose: Not Given Insulin Human Lispro (Humalog Low) 0 units SC ACHS [facility] PRN Reason: Protocol Last Admin: 04/24/17 17:31 Dose: Not Given Levalbuterol HCl (Xopenex) 1.25 mg IH Q2H PRN PRN Reason: SOB Last Admin: 04/24/17 05:35 Dose: 1.25 mg Levofloxacin (Levaquin) 500 mg PO DAILY [facility] Stop: 05/01/17 10:01 Last Admin: 04/24/17 10:26 Dose: 500 mg Lisinopril (Zestril) 10 mg PO DAILY [facility] Last Admin: 04/24/17 10:25 Dose: 10 mg Loratadine (Claritin) 10 mg PO DAILY [facility] Last Admin: 04/24/17 10:25 Dose: 10 mg Metoprolol Tartrate (Lopressor) 25 mg PO DAILY [facility] Last Admin: 04/24/17 10:26 Dose: 25 mg Montelukast Sodium (Singulair) 10 mg PO DAILY [facility] Last Admin: 04/24/17 10:25 Dose: 10 mg Nicotine (Nicoderm Cq) 1 patch TD DAILY [facility] Last Admin: 04/24/17 10:28 Dose: 1 patch Ondansetron HCl (Zofran Inj) 4 mg IVP Q4H PRN PRN Reason: Nausea/Vomiting Pantoprazole Sodium (Protonix Ec Tab) 40 mg PO DAILY [facility] Last Admin: 04/24/17 10:26 Dose: 40 mg Pregabalin (Lyrica) 75 mg PO DAILY [facility] Last Admin: 04/24/17 10:26 Dose: 75 mg Quetiapine Fumarate (Seroquel) 200 mg PO [facility] PRN Reason: Protocol Last Admin: 04/24/17 21:39 Dose: 200 mg Spironolactone (Aldactone) 25 mg PO DAILY [facility] Last Admin: 04/24/17 10:25 Dose: 25 mg - Labs Labs: 04/23/17 07:00 04/23/17 07:00 PT 11.2 Seconds (9.9-11.8) 04/23/17 07:00 INR 1.04 (0.93-1.08) 04/23/17 07:00 APTT 26.1 Seconds (23.7-30.8) 04/23/17 07:00 - Constitutional Appears: Well, No Acute Distress - Head Exam Head Exam: ATRAUMATIC, NORMAL INSPECTION, NORMOCEPHALIC Additional comments: Obese person. - Eye Exam Eye Exam: Normal appearance - ENT Exam ENT Exam: Mucous Membranes Moist - Neck Exam Neck Exam: Normal Inspection - Respiratory Exam Respiratory Exam: NORMAL BREATHING PATTERN (Bilateral wheezing present.) - Cardiovascular Exam Cardiovascular Exam: REGULAR RHYTHM, +S1 (Normal.), +S2 (Normal.). absent: JVD - GI/Abdominal Exam GI & Abdominal Exam: absent: Distended - Rectal Exam Rectal Exam: Deferred - Extremities Exam Extremities Exam: Normal Inspection, Pedal Edema (+) - Back Exam Back Exam: NORMAL INSPECTION - Neurological Exam Neurological Exam: Alert, Oriented x3 - Psychiatric Exam Psychiatric exam: Normal Affect, Normal Mood - Skin Skin Exam: Normal Color Assessment and Plan - Assessment and Plan (Free Text) Assessment: Sob. Wheezing. COPD exacerbation. DM. Hepatitis. ZAFAR. Colon cancer. Plan: Stat nebulizer treatment with Xopenex 1.25 mg . Lasix 40 mg IV stat. Continue present management.
[2017-04-25] MEDS ORDERED: Levalbuterol 1.25 MG/3 ML Inhal Soln UD IH STA (02:22)
[2017-04-25 08:35] LABS: % IRON SATURATION 4 % (20-55); IRON 14 ug/dL (45-180); TOTAL IRON BINDING CAPACITY 337 ug/dL (265-497)
[2017-04-25] MEDS: Insulin Lispro (humaLOG) LOW Coverage SC SCH ×4 (08:46→22:29)
[2017-04-25] MEDS: Pantoprazole 40 mg EC Tab PO SCH (09:45)
[2017-04-25] MEDS: GlipiZIDE 10 mg SR Tab PO SCH (09:46)
[2017-04-25] MEDS: levoFLOXacin 500 MG TAB PO SCH (09:46)
[2017-04-25] MEDS: Enoxaparin 40 mg Syringe SC SCH (09:54)
[2017-04-25] MEDS: Sodium Chloride 0.9% 1,000 ML IV SCH ×2 (12:44→22:38)
[2017-04-25 13:06] LABS: FOLATE 6.2 ng/mL
--- NOTE | 2017-04-25 15:52 | PN ---
DATE: 04/25/2017 SUBJECTIVE: The patient was seen and examined on the bedside, looks comfortable. Appreciated Dr. Lindo's help last night. According to the patient and the nurse the patient was having shortness of breath last night. Nebulizer treatment was given. The patient got better, still refusing BiPAP. No nausea, vomiting, or diarrhea. No hematuria or hematochezia. No swelling of the legs. No chest pain or palpitations. No headache, no dizziness. Still complaining about abdominal pain, getting better with medication. PHYSICAL EXAMINATION: VITAL SIGNS: Temperature 98.4, pulse 100, blood pressure 134/97, respiratory rate is 20. HEAD: Normocephalic, atraumatic. EYES: PERRLA. Extraocular muscles intact. Conjunctivae clear. Nose patent. Mucous membranes moist. NECK: Supple. No carotid bruit, JVD or thyromegaly. CHEST: Bilaterally symmetrical. HEART: S1, S2 positive. LUNGS: Clear to auscultation. ABDOMEN: Soft. Bowel sounds positive. No organomegaly. EXTREMITIES: No edema, no cyanosis. NEUROLOGIC: The patient is awake, alert and moving all 4 extremities. No focal deficits. MEDICATIONS: Aldactone, Claritin, Cymbalta, Dilaudid, DuoNeb, Glucotrol, insulin, Levaquin. LABORATORY DATA: We do not have labs today, I reviewed old labs. Glucose is 148. INR 14. Saturation 4%. ASSESSMENT AND PLAN: The patient is a 66-year-old lady with anemia, iron deficiency; diabetes mellitus, large mass and also lymph nodes in all adjacent areas, history of chronic hepatitis C, history of chronic obstructive pulmonary disease, depression, anxiety, multiple lymph nodes in the celiac periportal and peripancreatic area. Lymph nodes are up to 3-4 cm in the largest one, the small 1 is around 1 cm. Varies from 1 cm to 3-4 cm in size as per Dr. Merchant. Needle aspiration biopsies were done, waiting for the results of the pathology. Oncology consult called. History of obstructive sleep apnea; the patient is refusing CPAP, very noncompliant; history of drug abuse in the past, history of smoking and drinking, history of schizoaffective disorder. Continue bronchodilators, Nicoderm patch, pain management. Waiting for pathology report for further treatment. Gastrointestinal and deep venous thrombosis prophylaxis. Will follow. Georgnia Ferrara MD cc: [id number] TT: 04/25/2017 15:52:16 Confirmation # [id number] Dictation # [id number] dn MTDD
--- NOTE | 2017-04-25 16:51 | PN ---
DATE: 04/25/2017 SUBJECTIVE: This patient was seen and evaluated earlier. The patient complains of constipation. Sh dorothy complains of a similar pain. PHYSICAL EXAMINATION: VITAL SIGNS: Temperature is 98.4, pulse of 100, and blood pressure is 134/97. HEENT: Atraumatic, anicteric. NECK: Supple. HEART: S1, S2 heard. LUNGS: Bilateral air entry present. ABDOMEN: Soft. Tenderness present in the epigastric and right upper quadrant area. LABORATORY DATA: Hemoglobin 11.8, hematocrit 35.8, WBC is 8.6, platelets 311. Chemistry: CA 19-9 i s normal. CEA is also normal. ____ also is normal. IMPRESSION: This 66-year-old patient is admitted with the epigastric and right upper quadrant pain. The patient had an EGD ____ was done yesterday, found to have large multiple lymph nodes measuring a bout 3-4 cm present. Multiple fine needle aspirations done. Visualized pancreas appears normal othe rwise. The concern is the large lymphadenopathy. The patient also has hepatic lesions and also lung lesions. Hematology pending. Oncology consultation pending. We will follow up the fine needle asp iration results. The patient also has history of chronic hepatitis C. We will request virology stud ies, hepatitis profile and also ____ studies. Thank you very much for allowing us to participate in the care of the patient. Thang Merchant MD cc: [id number] TT: 04/25/2017 16:50:55 Confirmation # [id number] Dictation # [id number] sn
[2017-04-25] MEDS: HYDROmorphone 0.5 mg/0.5 ml ISec IVP PRN (22:34)
--- NOTE | 2017-04-25 22:50 | PN ---
DATE: 04/25/2017 REFERRING PHYSICIAN: Dr. Ferrara. SUBJECTIVE: She is lying in bed. Night was unremarkable. No headache, no rhinitis, no more hemopty sis. Mild abdominal pain. No dysuria. No leg pain or leg swelling. OBJECTIVE: GENERAL: In no acute distress. VITAL SIGNS: Temp is 98, heart rate is 107, respiratory rate is 20, blood pressure is 151/118, pulse ox is 98% on nasal cannula. HEENT: Moist mucous membranes. Crowded airway. Mallampati score is 4. NECK: Supple. No JVD. LUNGS: Have fair airflow with few rhonchi. HEART: S1, S2. ABDOMEN: Soft, nontender. No organomegaly. EXTREMITIES: There is no edema. NEUROLOGIC: Awake, alert, follows simple command. MEDICATIONS: She is on Aldactone 25 mg daily, Claritin 10 mg daily, Cymbalta 30 mg daily, Dilaudid 0 .5 mg q. 4 hours p.r.n., DuoNeb q. 6 hours, lactulose 30 grams daily, glipizide 10 mg daily, insulin coverage, Lasix 20 mg daily, Levaquin 500 mg daily, atorvastatin 40 mg daily, Lopid 600 mg twice a d ay, atorvastatin 25 mg daily, Lovenox 40 mg daily, Lyrica 75 mg daily, Nicoderm patch daily, Protonix 40 mg daily, Seroquel 200 mg at bedtime, Singulair 10 mg daily, IV fluid normal saline 100 mL per ho ur, Xanax 0.5 mg daily and 1 mg at bedtime, Xopenex inhaler q. 6 hours, Zestril 10 mg daily, Zofran o n a p.r.n. basis. LABORATORY DATA: Reviewed and noted. Blood sugars are 147. IMPRESSION AND PLAN: Pancreatic head mass lesion in the liver and lung, status post-pancreatic mass biopsy, depression, schizoaffective disorder, chronic obstructive lung disease, obstructive sleep ase master mechanic ea syndrome, active smoker, diabetes, hypertension. From a pulmonary point of view, doing okay. May have to readjust blood pressure medication, continue bronchodilator, antihypertensive medication. G astric prophylaxis. DVT prophylaxis. Encourage CPAP use. Thank you and will follow with you. Linnea Stephen MD cc: [id number] TT: 04/25/2017 22:49:53 Confirmation # [id number] Dictation # [id number] mn
[2017-04-26] MEDS: Albuterol-Ipratrop 3 mg / 0.5 (3 ml) UD IH SCH ×4 (01:43→19:41)
[2017-04-26] MEDS: Insulin Lispro (humaLOG) LOW Coverage SC SCH ×4 (07:30→22:37)
[2017-04-26] MEDS: GlipiZIDE 10 mg SR Tab PO SCH (10:00)
[2017-04-26] MEDS: Pantoprazole 40 mg EC Tab PO SCH (10:02)
[2017-04-26] MEDS: Enoxaparin 40 mg Syringe SC SCH (10:07)
[2017-04-26 12:15] LABS: HEPATITIS B SURFACE AG NEGATIVE (NEGATIVE)
[2017-04-26 12:20] LABS: HEPATITIS A IGM NEGATIVE (NEGATIVE); HEPATITIS B CORE AB NEGATIVE (NEGATIVE)
[2017-04-26] MEDS: HYDROmorphone 0.5 mg/0.5 ml ISec IVP PRN ×2 (12:42→22:35)
[2017-04-26] MEDS: levoFLOXacin 500 MG TAB PO SCH (13:46)
[2017-04-26 13:47] LABS: HEPATITIS C ANTIBODY REACTIVE (NEGATIVE)
--- NOTE | 2017-04-26 16:13 | PN ---
DATE: 04/26/2017 Seen and examined at the bedside earlier today. The patient complaining of nausea this morning. No vomiting. Denies any abdominal pain at this time. The patient had a bowel movement last night with relief. No reports of any bleeding. VITAL SIGNS: Temperature is 98.2, blood pressure is 173/104, pulse rate 98, respirations 18. The patient on antihypertensive medicine. PHYSICAL EXAMINATION: HEENT: Sclera is anicteric. NECK: Supple. CARDIAC: S1, S2. LUNG SOUNDS: With decreased breath sounds at the bases, but no rales or wheeze. Good air entry. ABDOMEN: With bowel sounds, soft, not tender. ASSESSMENT: This is a 66-year-old female initially admitted for epigastric and right upper quadrant pain. The patient had radiological studies done, found to have lymphadenopathy and reporting a pancreatic head mass. The patient underwent an esophagogastroduodenoscopy and endoscopic ultrasound, found to have large multiple lymph nodes measuring about 3-4 cm, status post fine needle aspiration. Pathology still pending. Pancreas was visualized and appeared normal. The patient also with hepatic and lung lesions, history of chronic hepatitis C. PLAN: We will follow up hepatitis profile studies and follow up the FNA. The patient is also being followed by hematology. Continue present treatment. Continue GI prophylaxis and DVT prophylaxis. The patient was seen and case discussed with Dr. Merchant. Amelia MACIEL cc: [id number] TT: 04/26/2017 16:12:37 Confirmation # [id number] Dictation # [id number] en MTDD
[2017-04-26 17:10] VITALS: RESP 20
--- NOTE | 2017-04-26 20:14 | PN ---
DATE: 04/26/2017 REFERRING PHYSICIAN: Dr. Ferrara. SUBJECTIVE: The patient is lying in the bed, head at 45 degrees, night was unremarkable. Tolerated BiPAP well, clinically feels better, decreased cough, decreased shortness of breath. No abdominal pa in. No dysuria. No leg pain or leg swelling. OBJECTIVE: GENERAL: No acute distress. VITAL SIGNS: Temp is 98, heart rate is 71, respiratory rate is 20, blood pressure 157/66, pulse ox 9 7% on room air. HEENT: Moist mucous membrane. Crowded airway. Mallampati score is 4. NECK: Supple. No JVD. LUNGS: Has scattered rhonchi. HEART: S1, S2. ABDOMEN: Soft, nontender, nondistended. EXTREMITIES: There is no edema. NEUROLOGIC: Awake, alert, follows simple command. MEDICATIONS: She is on Aldactone 25 mg daily, Claritin 10 mg daily, Cymbalta 30 mg daily, Dilaudid 0 .5 mg q. 6 hours p.r.n., DuoNeb q. 6 hours, lactulose 30 mg daily p.r.n., glipizide 10 mg daily, insu hao coverage, Lasix 40 mg daily, Levaquin 500 mg daily, Lipitor 10 mg daily, Lopid 600 mg twice a day , Lopressor 25 mg daily, Lovenox 40 mg subQ daily, Lyrica 75 mg daily, Nicoderm patch daily, Norvasc 5 mg daily, Protonix 40 mg daily, Seroquel 200 mg at bedtime, Singulair 10 mg daily, IV fluid normal saline 100 mL per hour, Xanax 1 mg daily and also 0.5 mg daily. LABORATORY DATA: Reviewed and noted blood sugar this morning 117. Hepatitis C antibody is reactive. IMPRESSION AND PLAN: Pancreatic head mass lesion, also has a lesion in the liver and lungs, status p ost biopsy, depression, schizoaffective disorder, chronic obstructive lung disease, obstructive sleep apnea syndrome, active smoker, diabetes, hypertension, status post biopsy. Awaiting for report. En courage CPAP use. Discontinue IV fluids. Gastric prophylaxis, deep venous thrombosis prophylaxis. Thank you and will follow with you. Linnea Stephen MD cc: [id number] TT: 04/26/2017 20:13:56 Confirmation # [id number] Dictation # [id number] mn
--- NOTE | 2017-04-26 20:23 | PN ---
DATE: 04/26/2017 SUBJECTIVE: This patient was seen and evaluated earlier. The patient complains of constipation, sta rted on lactulose. On examination, the patient does have some tenderness in the epigastric and right upper quadrant area. Status post an endoscopic ultrasound-guided biopsy of the large lymph nodes, peripancreatic and lymph nodes present. Pathology is still pending. Thank you very much for allowing us to participate. We will continue to closely follow up her care a nd suggest further management based on the clinical course. Hepatitis C PCR has been requested and p ending. Thang Merchant MD cc: [id number] TT: 04/26/2017 20:22:26 Confirmation # [id number] Dictation # [id number] jn
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
[2017-04-27] MEDS: Albuterol-Ipratrop 3 mg / 0.5 (3 ml) UD IH SCH ×3 (02:35→13:37)
--- NOTE | 2017-04-27 08:20 | PN ---
DATE: 04/26/2017 SUBJECTIVE: The patient was seen and examined on 04/26/17, lying comfortably in the bed. Had no change in the status overnight. Tolerated BiPAP very well. Coughing is getting better. Shortness of breath is getting better. Abdominal pain is getting better. No dysuria. No swelling of the legs. No chest pain, no palpitation, no headaches. PHYSICAL EXAMINATION: VITAL SIGNS: Temperature 98, heart rate 71, respiratory rate 20, blood pressure 150/66, pulse oximetry 97% on room air. HEENT: Head normocephalic, atraumatic. Eyes: PERRLA. Extraocular muscles intact. Conjunctivae clear. Nose is patent. NECK: Supple. No carotid bruit, JVD or thyromegaly. CHEST: Bilaterally symmetrical. HEART: S1, S2 positive. LUNGS: Clear to auscultation. ABDOMEN: Soft. Bowel sounds present. No organomegaly. EXTREMITIES: No edema, no cyanosis. NEUROLOGIC: The patient is awake, alert, moving all 4 extremities. No focal deficit. MEDICATIONS: Aldactone, Claritin, Cymbalta, Dilaudid, DuoNeb, glipizide, insulin coverage, Levaquin, Lipitor, Lopressor, Lovenox, Lyrica, Nicoderm patch , Norvasc, Protonix, Seroquel, Singulair, IV fluid, Xanax. LABORATORY DATA: We do not have recent labs today, but I reviewed old labs. ASSESSMENT AND PLAN: This is a 66-year-old lady with multiple medical problems , pancreatic head mass lesion, also liver and lung lesion, status post biopsy done. Results are pending. Multiple lymph nodes, Depression, schizoaffective disorder, chronic obstructive lung disease, obstructive sleep apnea syndrome, active smoker, active drinker, diabetes mellitus, hypertension, Status post biopsy, waiting for the report. Encourage BiPAP. Discontinue IV fluid. Gastric prophylaxis, deep venous thrombosis prophylaxis. Appreciated Dr. Stephen 's input. Dr. Rg is the [facility] surgeon who saw the patient. According to Dr. Merchant, looks like the patient has lymphoma. Tumor markers ordered for pancreas are normal as per [facility] surgeon. Severe iron deficiency, likely due to chronic disease, might have iron sucrose 20 mg IV, history of hepatitis C. Bilateral pulmonary nodules suspicious of malignancy, on oxygen 1 by nasal cannular. Pulmonary follow up. Gastrointestinal and deep venous thrombosis prophylaxis. Repeat labs. We will follow up. Georgina Ferrara MD cc: [id number] TT: 04/27/2017 08:19:35 Confirmation # [id number] Dictation # [id number] andres MURGUIA
--- NOTE | 2017-04-27 08:34 | CON ---
DATE: 04/26/2017 CONSULT REQUESTED BY: Georgina Ferrara MD. REASON FOR CONSULTATION: Pancreatic head mass, multiple lesions in the liver, multiple lung nodules, suspicion for malignancy. HISTORY OF PRESENT ILLNESS: The patient is a 66-year-old female admitted to the hospital with shortness of breath. She has abdominal pain, epigastric pain , and right upper quadrant pain. She states that this has been going on for the past 6 months. She has frequent nausea and vomiting and upper abdominal pain. She had a PET scan done as an outpatient recently, which showed multiple subcentimeter pulmonary nodules, multiple liver nodules, and a pancreatic head mass. She underwent EGD and FNA of the pancreatic head mass. Pathology is pending. MRCP done during this hospitalization showed a mass at the pancreatic head measuring 7.3 x 5.2 cm. There was a separate lymph node mass around 4 cm, multiple hypodense nodules in the liver. She has multiple nodules in the lung also subcentimeter. Denies any bleeding from any site. She also lost a few pounds of weight in the past 6 months. She has history of diabetes mellitus. Blood sugar controlled with current medications. History of hepatitis C. History of schizophrenia with prior hospitalization. No issues right now. PAST MEDICAL HISTORY: COPD, fibromyalgia, diabetes mellitus type 2, hepatitis C , depression, schizophrenia. PAST SURGICAL HISTORY: Appendectomy, tubal ligation, colon resection, liver biopsy. FAMILY HISTORY: Noncontributory. PERSONAL HISTORY: Heavy smoker, history of substance abuse, alcohol abuse. ALLERGIES: No known drug allergies. FAMILY HISTORY: She has a very strong family history of cancer. Her sister has uterine cancer. Mother had uterine cancer. Aunt has bone cancer, possible sarcoma, had bilateral leg amputation. One of the cousins had tumor in the heart. HOME MEDICATIONS: Xanax, Cymbalta, Nexium, Lasix, glipizide, Zestril, Glucophage, Lopressor, Singulair, Seroquel, Aldactone. REVIEW OF SYSTEMS: As per HPI. The rest of the 12-point review of systems reviewed and negative. PHYSICAL EXAMINATION: GENERAL: Comfortable in bed, in no acute distress, obese. VITAL SIGNS: Temperature 98.7, heart rate 80 per minute, blood pressure 130/ 40. Pulse ox is 98% room air. HEENT: Within normal limits. NECK: No lymphadenopathy. Mucous membranes moist. Pallor positive. CHEST: Air entry present, equal bilaterally. No added sound. CARDIOVASCULAR: Within normal limits. ABDOMEN: Soft, nontender. No hepatosplenomegaly. EXTREMITIES: No edema. NEUROLOGIC: Awake, alert, and oriented x 3. No focal sensorimotor deficit. SPINE: Normal. LYMPHADENOPATHY: None. LABORATORY DATA: White count 8.6, hemoglobin 11.8, hematocrit 35.8, MCV 85, platelet count 311. Sodium 141, potassium 4. BUN 9, creatinine 0.7. AST 22, ALT 70. CEA 2.4, CA 19.9 of 15.4. Vitamin B12 of 345, folate 6.2. Iron 14% with saturation 4. ASSESSMENT AND PLAN: 1. Pancreatic head mass, multiple liver lesions, hypodense subcentimeter, multiple lung nodules. She had an endoscopic FNA done of the pancreatic head mass. Pathology pending. Tumor markers were ordered - CEA, CA 19.9. Both are within normal limits. There is a possibility of lymphoma. CA 19.9 is usually elevated in a large lesion like this in pancreatic cancer. We will await pathology results. If FNA is noncontributory, then she will need a CT-guided core biopsy of the mass around the pancreatic head. 2. Severe iron deficiency anemia. We will give 1 dose of IV iron 200 mg today. She will need continuation of IV iron as outpatient. 3. Chronic obstructive pulmonary disease. She is currently on oxygen. Pulmonary following. 4. Diabetes mellitus. Blood sugar controlled with current medications. 5. Hepatitis C. GI following. I am not sure she was not treated for hepatitis C in the past. We will continue to follow closely. Thank you, Dr. Ferrara, for allowing us to participate the patient's care. I had a lengthy discussion with the patient. I also discussed the possibility of malignancy - pancreatic cancer versus non-Hodgkin's lymphoma. I told her we are waiting for FNA. If diagnosis cannot be made on FNA, then she will need a CT-guided biopsy. She demonstrated understanding the discussion well. She asked appropriate questions. All were answered to her satisfaction. Anum Rg MD cc: [id number] TT: 04/26/2017 08:46:51 Confirmation # [id number] Dictation # [id number] jn SHANTAL
[2017-04-27] MEDS: Insulin Lispro (humaLOG) LOW Coverage SC SCH ×2 (08:53→11:53)
[2017-04-27 08:55] VITALS: BP 136/87; PULSE 104; TEMP 97.5; O2SAT 93
[2017-04-27] MEDS: GlipiZIDE 10 mg SR Tab PO SCH (12:11)
[2017-04-27] MEDS: Enoxaparin 40 mg Syringe SC SCH (12:12)
[2017-04-27] MEDS: levoFLOXacin 500 MG TAB PO SCH (12:12)
[2017-04-27] MEDS: Pantoprazole 40 mg EC Tab PO SCH (12:13)
--- NOTE | 2017-04-27 16:25 | PN ---
DATE: 04/27/2017 Seen and examined at the bedside earlier today. The patient with no new complaints. Denies any nausea, vomiting, or abdominal pain. She did have a bowel movement last night and it was okay, no diarrhea or bleeding. Tolerating oral intake. The patient states she wants to go home. VITAL SIGNS: Temperature is 97.5, blood pressure is 136/87, pulse 104, respirations 20. LABORATORY DATA: Noted is POC glucose at 104. PHYSICAL EXAMINATION: HEENT: Sclerae are anicteric. NECK: Supple. CARDIAC: S1, S2. LUNGS: Decreased breath sounds at the bases, but good air entry, no rales or wheeze. ABDOMEN: With bowel sounds. Soft, nontender. No rebound or guarding. ASSESSMENT: A 66-year-old female admitted for epigastric and right upper quadrant pain. Abdominal pain is much improved. She was found to have some lymphadenopathy and pancreatic head mass, had endoscopy and endoscopic ultrasound, found to have multiple lymph nodes, status post fine needle aspiration. The pancreas was seen and that appeared normal. She also has hepatic and lung lesions and history of chronic hepatitis C. PLAN: To follow up with her FNA, which is not back yet. Speak to pathology. Continue GI prophylaxis and follow up her hepatitis C RNA. Continue PPI. The patient is on DVT prophylaxis and continue her diet as tolerated. The patient was seen and case discussed with Dr. Merchant. Amelia MACIEL cc: [id number] TT: 04/27/2017 16:25:19 Confirmation # [id number] Dictation # [id number] mn SHANTAL
--- NOTE | 2017-04-27 19:03 | PN ---
DATE: 04/27/2017 REFERRING PHYSICIAN: Dr. Ferrara. SUBJECTIVE: She is lying in the bed, head at 45 degrees. Family is at bedside. Night was unremarka ble, tolerated BiPAP well, mild cough, no sputum production. No chest pain, no nausea, no vomiting, no diarrhea. No leg pain or leg swelling. OBJECTIVE: GENERAL: No acute distress. VITAL SIGNS: Temperature is 98, heart rate is 104, respiratory rate is 20, blood pressure 136/87, pu lse ox % on room air. HEENT: Moist mucous membrane. Crowded airway. Mallampati score is 4. NECK: Supple. No JVD. LUNGS: Has scattered rhonchi, prolonged expiratory phase. HEART: S1, S2. ABDOMEN: Soft, nontender, nondistended. EXTREMITIES: There is no edema. NEUROLOGIC: Awake, alert, follows simple command. MEDICATIONS: Reviewed. Noted no new changes in medication since yesterday. LABORATORY DATA: Reviewed. Blood sugar is 104. Hepatitis C antibody is reactive. Pathology report of biopsy is still pending. IMPRESSION AND PLAN: Pancreatic head mass with a lesion in the liver and lung, status post lymph nod e biopsy, schizoaffective disorder, chronic obstructive lung disease, obstructive sleep apnea syndrom e, active smoker, diabetes, hypertension. Pulmonary point of view, doing well. Continue CPAP while sleeping. Continue IV and inhaled bronchodilator. Gastric prophylaxis. DVT prophylaxis. Awaiting for cytology, pathology report. Thank you and will follow with you. Linnea Stephen MD cc: [id number] TT: 04/27/2017 19:02:15 Confirmation # [id number] Dictation # [id number] mn
--- NOTE | 2017-05-04 06:40 | PQF GENQUE ---
This form is a permanent part of the medical record Dr. Merchant, Clarification of your documentation is requested to better reflect the severity of illness and intensity of treatment of your patient. Indicators present : EGD/EUS/FNA of the celiac lymph node was performed by you in April 23. We just received the cytology report. Please clarify if the adenocarcinoma is primary or secondary neoplasm. Please see EMR for pathology report. Thank you. [] Specify: [] [] Specify: [] [] Specify: [] [] Specify: [] Location in the medical record that reflects the above clinical findings: [] cytology report Treatment Provided: [] PHYSICIAN'S RESPONSE Based on your medical judgment of the clinical indicators outlined above please clarify the following: [] Practitioner response [] If unable to determine, please check the box, sign and date. Present On Admission (POA) Indicator: [] Present at the time of admission [] Not present at the time of admission [] Clinically Undetermined In responding to this query, please exercise your independent professional judgment. The fact that a question is asked does not imply that any particular answer is desired or expected. Thank you for your clarification on this documentation. If you have any questions please call:[ ] * Thank you, [ ]TONE WOLFFbusiness support associate SHANTAL
--- NOTE | 2017-05-17 23:21 | CP.PCM.DIS ---
Provider - Provider Date of Admission: 04/22/17 14:11 Attending physician: Georgina Ferrara MD Primary care physician: Georgina Ferrara MD Consults: discharge delta zimmerman , 04/27 A 66 year old female, whose past medical history includes hypertension, hyperlipidemia, COPD, fibromyaligia, diabetes, diverticulitis, obesity and degenerative joint disease, presents to the emergency department for evaluation of right upper quadrant abdominal pain. Patient reports pain radiated to the back, is constant for the past few months and is associated with nausea and intermittent non bloody non bilious vomiting. Patient states she came in today because she went to her PMD office for a regular lab work and her PMD suggested so come to the emergency department. Patient notes she sweats a lot and believes it is due to a fever but she denies any diarrhea, chest pain, shortness of breath, urinary changes or any other complaints at this time. Time Spent in preparation of Discharge (in minutes): 1 Diagnosis - Discharge Diagnosis (1) Malignant tumor head pancreas Status: Acute (2) Abdominal pain Status: Acute (3) Benzodiazepine overdose Status: Acute (4) Diverticulitis Status: Acute (5) Dizziness Status: Acute (6) Gross hematuria Status: Acute (7) Liver lesion Status: Acute (8) Overdose Status: Acute Hospital Course - Lab Results Lab Results: Most Recent Lab Values WBC 8.6 10^3/ul (4.5-11.0) 04/23/17 07:00 RBC 4.21 10^6/uL (3.5-6.1) 04/23/17 07:00 Hgb 11.8 gm/dL (12.0-16.0) L 04/23/17 07:00 Hct 35.8 % (36.0-48.0) L 04/23/17 07:00 MCV 85.0 fL (80.0-105.0) 04/23/17 07:00 MCH 28.0 pg (25.0-35.0) 04/23/17 07:00 MCHC 33.0 g/dl (31.0-37.0) 04/23/17 07:00 RDW 14.6 % (11.5-14.5) H 04/23/17 07:00 Plt Count 311 10^3/uL (120.0-450.0) 04/23/17 07:00 MPV 8.8 fl (7.0-11.0) 04/23/17 07:00 Gran % 72.0 % (50.0-68.0) H 04/23/17 07:00 Lymph % (Auto) 21.3 % (22.0-35.0) L 04/23/17 07:00 [place] % (Auto) 4.6 % (1.0-6.0) 04/23/17 07:00 Eos % (Auto) 1.9 % (1.5-5.0) 04/23/17 07:00 Baso % (Auto) 0.2 % (0.0-3.0) 04/23/17 07:00 Gran # 6.22 (1.4-6.5) 04/23/17 07:00 Lymph # 1.8 (1.2-3.4) 04/23/17 07:00 [place] # 0.4 (0.1-0.6) 04/23/17 07:00 Eos # 0.2 (0.0-0.7) 04/23/17 07:00 Baso # 0.02 K/mm3 (0.0-2.0) 04/23/17 07:00 PT 11.2 Seconds (9.9-11.8) 04/23/17 07:00 INR 1.04 (0.93-1.08) 04/23/17 07:00 APTT 26.1 Seconds (23.7-30.8) 04/23/17 07:00 Sodium 141 mmol/L (132-148) 04/23/17 07:00 Potassium 4.0 mmol/L (3.6-5.0) 04/23/17 07:00 Chloride 106 mmol/L (98-107) 04/23/17 07:00 Carbon Dioxide 27 mmol/L (21-33) 04/23/17 07:00 Anion Gap 12 (10-20) 04/23/17 07:00 BUN 9 mg/dL (7-21) 04/23/17 07:00 Creatinine 0.7 mg/dL (0.5-1.4) 04/23/17 07:00 Est GFR ( Amer) > 60 04/23/17 07:00 Est GFR (Non-Af Amer) > 60 04/23/17 07:00 POC Glucose (mg/dL) 104 mg/dL (65-110) 04/27/17 11:41 Random Glucose 126 mg/dL (70-110) H 04/23/17 07:00 Calcium 9.4 mg/dL (8.4-10.5) 04/23/17 07:00 Iron 14 ug/dL (45-180) L 04/25/17 07:54 TIBC 337 ug/dL (265-497) 04/25/17 07:54 % Saturation 4 % (20-55) L 04/25/17 07:54 Total Bilirubin 0.3 mg/dL (0.2-1.3) 04/23/17 07:00 AST 49 U/L (15-39) H 04/23/17 07:00 ALT 22 U/L (7-56) 04/23/17 07:00 Alkaline Phosphatase 70 U/L (38-133) 04/23/17 07:00 Lactate Dehydrogenase 404 U/L (333-699) 04/25/17 07:54 Total Protein 7.3 g/dL (5.8-8.3) 04/23/17 07:00 Albumin 3.8 g/dL (3.0-4.8) 04/23/17 07:00 Globulin 3.5 gm/dL 04/23/17 07:00 Albumin/Globulin Ratio 1.1 (1.1-1.8) 04/23/17 07:00 Xord-7-Vxqlpekuvlcdy 2.94 mg/L (<or= 2.51) H 04/25/17 07:54 Lipase 211 U/L (23-300) 04/21/17 10:15 Carcinoembryonic Ag 2.4 ng/mL (0.0-3.0) 04/25/17 07:54 CA 19-9 Antigen 15.4 U/mL (0-37) 04/25/17 07:54 Vitamin B12 345 pg/mL (239-931) 04/25/17 07:54 Folate 6.2 ng/mL 04/25/17 07:54 Hepatitis A IgM Ab Negative (NEGATIVE) 04/26/17 07:00 Hep Bs Antigen Negative (NEGATIVE) 04/26/17 07:00 Hep B Core IgM Ab Negative (NEGATIVE) 04/26/17 07:00 Hepatitis C Antibody Reactive (NEGATIVE) H 04/26/17 07:00 HCV RNA Qual (TMA) Not detected 04/26/17 07:00 - Hospital Course Hospital Course: A 66 year old female, whose past medical history includes hypertension, hyperlipidemia, COPD, fibromyaligia, diabetes, diverticulitis, obesity and degenerative joint disease, presents to the emergency department for evaluation of right upper quadrant abdominal pain. Patient reports pain radiated to the back, is constant for the past few months and is associated with nausea and intermittent non bloody non bilious vomiting. Patient states she came in today because she went to her PMD office for a regular lab work and her PMD suggested so come to the emergency department. Patient notes she sweats a lot and believes it is due to a fever but she denies any diarrhea, chest pain, shortness of breath, urinary changes or any other complaints at this time. CT abdomen showed large mass around head of pancreas around 7.3 x 5.2 cm. She has multiple liver and lung nodules. She had PET scan done recently which showed similar findings. She underwent Endoscopic FNA of mass around pancreas. Pathology is pending. She has strong family history of cancer on maternal side. Her aunt and sister have uterine cancer. Mother uterine cancer. One maternal aunt had tumor in leg ? sarcoma. Abdominal symptoms improved. No nausea now. Discharge Exam - Head Exam Head Exam: ATRAUMATIC, NORMAL INSPECTION, NORMOCEPHALIC - Eye Exam Eye Exam: EOMI, Normal appearance, PERRL Pupil Exam: NORMAL ACCOMODATION, PERRL - GI/Abdominal Exam GI & Abdominal Exam: Normal Bowel Sounds, Tenderness - Rectal Exam Rectal Exam: NORMAL INSPECTION - Exam Exam: Circumcision, NORMAL INSPECTION External exam: NORMAL EXTERNAL EXAM Speculum exam: NORMAL SPECULUM EXAM Bimanual exam: NORMAL BIMANUAL EXAM - Neurological Exam Neurological exam: Alert, CN II-XII Intact, Normal Gait, Oriented x3, Reflexes Normal - Psychiatric Exam Psychiatric exam: Normal Affect, Normal Mood - Skin Skin Exam: Dry, Intact, Normal Color, Warm Discharge Plan - Follow Up Plan Condition: FAIR Disposition: HOME/ ROUTINE Instructions: Acute Abdominal Pain (DC), Acute Abdominal Pain (GEN) Referrals: Georgina Ferrara MD [Primary Care Provider] -
== END 2017-04-27 16:48 | disposition home or self-care (01) | DRG 825 ==
LOC: ED 09:25 → ERH 13:08 → 3RSO 15:10 → OBSVTOIN 04-22 14:11
PROVIDERS: ADMIT Internal Medicine; ATTEND Internal Medicine
PROC: 079 Lymphatic and Hemic Systems, Drainage (ICD-10-PCS; principal; 2017-04-23 14:00)
PROC: 0DJ08ZZ Inspection of Upper Intestinal Tract, Via Natural or Artificial Opening Endoscopic (ICD-10-PCS; 2017-04-23 14:00)
DX: C77.2 Secondary and unspecified malignant neoplasm of intra-abdominal lymph nodes (principal); C80.1 Malignant (primary) neoplasm, unspecified; J44.9 Chronic obstructive pulmonary disease, unspecified; F25.9 Schizoaffective disorder, unspecified; I10 Essential (primary) hypertension; D50.9 Iron deficiency anemia, unspecified; E11.9 Type 2 diabetes mellitus without complications; F32.9 Major depressive disorder, single episode, unspecified; M79.7 Fibromyalgia; G47.33 Obstructive sleep apnea (adult) (pediatric); E78.00 Pure hypercholesterolemia, unspecified; B18.2 Chronic viral hepatitis C; M19.90 Unspecified osteoarthritis, unspecified site; F41.9 Anxiety disorder, unspecified; H00.014 Hordeolum externum left upper eyelid; F17.200 Nicotine dependence, unspecified, uncomplicated; H00.011 Hordeolum externum right upper eyelid; R91.1 Solitary pulmonary nodule; K76.9 Liver disease, unspecified; K86.89 Other specified diseases of pancreas; K59.00 Constipation, unspecified; Z91.19 Patient's noncompliance with other medical treatment and regimen; Z79.84 Long term (current) use of oral hypoglycemic drugs

== ENCOUNTER 2017-05-17 11:04 | Day surgery (SDC) | payer MEDICARE, OTHER ==
[2017-05-17 11:22] VITALS: BMI 34.9
[2017-05-17] MEDS ORDERED: Lidocaine 2% Inj (20ml) ONE (12:03)
[2017-05-17] MEDS ORDERED: Midazolam 2 MG/2 ML VIAL ONE ×3 (12:37→13:50)
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
[2017-05-17 12:56] LABS: BASO # 0.03 K/mm3 (0.0-2.0); BASO % 0.3 % (0.0-3.0); EOS # 0.1 (0.0-0.7); GRAN # 7.37 (1.4-6.5); GRAN % 76.2 % (50.0-68.0); HEMOGLOBIN 12.8 gm/dL (12.0-16.0); LYMPH # 1.6 (1.2-3.4); LYMPH % 16.8 % (22.0-35.0); MEAN CELL VOLUME 82.2 fL (80.0-105.0); MEAN CORPUSCULAR HEMOGLOBIN 27.1 pg (25.0-35.0); MEAN CORPUSCULAR HGB CONC 32.9 g/dl (31.0-37.0); MEAN PLATELET VOLUME 9.2 fl (7.0-11.0); MONO # 0.6 (0.1-0.6); MONO % 5.7 % (1.0-6.0); PLATELET COUNT 483 10^3/uL (120.0-450.0); RBC 4.73 10^6/uL (3.5-6.1); RED CELL DISTRIBUTION WIDTH 15.1 % (11.5-14.5); WHITE BLOOD COUNT 9.7 10^3/ul (4.5-11.0)
[2017-05-17 13:04] LABS: INR 1.04 (0.93-1.08); PARTIAL THROMBOPLASTIN TIME 26.8 Seconds (23.7-30.8); PROTHROMBIN TIME 11.2 Seconds (9.9-11.8)
[2017-05-17] MEDS ORDERED: Oxycodone/Acetaminophen 5/325 mg Tab PO PRN (14:25)
[2017-05-17] MEDS ORDERED: Sodium Chloride 0.45% 1,000 ML IV SCH (14:30)
[2017-05-17 15:30] VITALS: BP 152/86; RESP 18; TEMP 97.5; O2SAT 96
[2017-05-17 17:44] VITALS: PULSE 68
== END 2017-05-17 18:00 | disposition home or self-care (01) ==
LOC: ED 11:04 → SDSVAS 12:47
PROVIDERS: ATTEND Radiology Vascular & Interventional Radiology
DX: C85.90 Non-Hodgkin lymphoma, unspecified, unspecified site (principal); F17.210 Nicotine dependence, cigarettes, uncomplicated; J44.9 Chronic obstructive pulmonary disease, unspecified; E11.9 Type 2 diabetes mellitus without complications; B19.20 Unspecified viral hepatitis C without hepatic coma; Z79.84 Long term (current) use of oral hypoglycemic drugs
CPT/HCPCS: 36561; 76937; 77001; 85025; 85610; 85730; 99152; 99284; C1769; C1788; J0690; J1644; J2250; J2405; J3010; J7030 ×2

== ENCOUNTER 2017-06-01 16:41 | Inpatient (IN) | payer MEDICARE, OTHER ==
[2017-06-01 16:47] VITALS: BMI 36.6
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
[2017-06-01] MEDS ORDERED: Morphine 4 mg/ml ISec IVP STA (17:18)
[2017-06-01 19:52] LABS: BASO # 0.02 K/mm3 (0.0-2.0); BASO % 0.2 % (0.0-3.0); EOS # 0.1 (0.0-0.7); EOS % 1.1 % (1.5-5.0); GRAN # 8.97 (1.4-6.5); GRAN % 74.4 % (50.0-68.0); HEMOGLOBIN 12.9 gm/dL (12.0-16.0); LYMPH # 2.1 (1.2-3.4); LYMPH % 17.7 % (22.0-35.0); MEAN CELL VOLUME 81.8 fL (80.0-105.0); MEAN CORPUSCULAR HEMOGLOBIN 27.9 pg (25.0-35.0); MEAN CORPUSCULAR HGB CONC 34.1 g/dl (31.0-37.0); MEAN PLATELET VOLUME 9.1 fl (7.0-11.0); MONO # 0.8 (0.1-0.6); MONO % 6.6 % (1.0-6.0); PLATELET COUNT 292 10^3/uL (120.0-450.0); RBC 4.62 10^6/uL (3.5-6.1); WHITE BLOOD COUNT 12.1 10^3/ul (4.5-11.0)
[2017-06-01 20:01] LABS: URINE BILIRUBIN NEGATIVE (NEGATIVE); URINE BLOOD NEGATIVE (NEGATIVE); URINE COLOR YELLOW (YELLOW); URINE GLUCOSE (UA) NEGATIVE (NEGATIVE); URINE LEUKOCYTE ESTERASE NEGATIVE Leu/uL (NEGATIVE); URINE NITRATE NEGATIVE (NEGATIVE); URINE PROTEIN TRACE mg/dL (<30 mg/dL); URINE UROBILINOGEN 0.2 E.U./dL (<1 E.U./dL)
[2017-06-01 20:02] LABS: ALB/GLOB RATIO 0.9 (1.1-1.8); ALBUMIN 4.1 g/dL (3.0-4.8); ALT/SGPT 114 U/L (7-56); AST/SGOT 174 U/L (15-39); BLOOD UREA NITROGEN 7 mg/dL (7-21); CALCIUM 9.6 mg/dL (8.4-10.5); GFR AFRICAN-AMERICAN > 60; GFR NON-AFRICAN AMERICAN > 60
[2017-06-01 20:02] LABS: URINE APPEARANCE SL CLOUDY (CLEAR)
[2017-06-01 20:05] LABS: INR 1.18 (0.93-1.08); PARTIAL THROMBOPLASTIN TIME 21.2 Seconds (23.7-30.8); PROTHROMBIN TIME 12.7 Seconds (9.9-11.8)
[2017-06-01 20:29] LABS: URINE WBC 0 - 2 /hpf (0-6)
[2017-06-01 20:30] LABS: URINE BACTERIA SMALL (NEG)
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
--- NOTE | 2017-06-01 23:42 | CT ---
EXAM: CT Abdomen and Pelvis Without Intravenous Contrast CLINICAL HISTORY: 66 years old, female; Pain; Abdominal pain; Flank; Right; Additional info: Hematuria, jaundice, flank pain TECHNIQUE: Axial computed tomography images of the abdomen and pelvis without intravenous contrast. This CT exam was performed using one or more of the following dose reduction techniques: automated exposure control, adjustment of the mA and/or kV according to patient size, and/or use of iterative reconstruction technique. Coronal and sagittal reformatted images were created and reviewed. EXAM DATE/TIME: 06/01/2017 12:00 AM COMPARISON: CT - ABD PELVIS W/O PO OR IV CONT 04/21/2017 10:37:35 AM FINDINGS: Lower thorax: Heart size is normal. There are coronary calcifications. There is no pericardial effusion. There are enlarged nodes in right pericardial fat. Lateral node measures 2.5 x 1.9 cm. Medial node measures approximately 2.5 x 1.8 cm. There is streak artifact from the tip of a central line. There are multiple bilateral pulmonary nodules numerous to count. The ABDOMEN: Liver: There is an interval increase in size and conspicuity of low attenuation masses in the liver. Gallbladder and bile ducts: Gallbladder is distended, at least 10.5 cm in length. Small stones cannot be excluded. Common duct is dilated. There is dilatation of intrahepatic biliary radicles. Pancreas: Pancreatic tail is mildly atrophic. There is a lobulated mass in the pancreatic head and adjacent pancreatic body. Adjacent contiguous peripancreatic adenopathy not be excluded Spleen: unremarkable Adrenals: unremarkable Kidneys and ureters: Right kidney is unremarkable. There is a left renal cyst.There is no pelvocaliectasis or ureterectasis. Stomach and bowel: Stomach is distended with an air-fluid level. Rotation is normal. There is mild proximal small bowel wall thickening. There is no small bowel obstruction. There has been partial right colectomy. There is an ileocolic anastomosis in the right flank.Colon is incompletely distended which limits evaluation.There is diverticulosis. Appendix: Surgically absent PELVIS: Bladder: unremarkable Reproductive: There are coarse calcifications in the uterus.Adnexa are unremarkable. ABDOMEN and PELVIS: Intraperitoneal space: There is no free air or free fluid.. Bones/joints: There are degenerative changes in the osseus structures. Soft tissues: There is a small fat containing ventral hernia. There is a small fat containing umbilical hernia. Vasculature: There are vascular calcifications. Lymph nodes: There is an enlarged node at the left renal hilum, 3.4 x 2.5 cm, image 71 series 601 perivascular retroperitoneal nodes. . IMPRESSION: Multiple bilateral pulmonary nodules consistent with metastases; pericardial adenopathy; increasing pancreatic head/peripancreatic mass now with distended gallbladder and dilated ducts consistent with biliary ductal obstruction; increasing metastatic disease in the liver; right hemicolectomy; diverticulosis without CT findings of diverticulitis Additional findings as described above.
--- NOTE | 2017-06-02 00:13 | CP.PCM.PN ---
Subjective - Date & Time of Evaluation Date of Evaluation: 06/02/17 Time of Evaluation: 00:13 - Subjective Subjective: Patient was seen at bedside. Complainted of abdominal pain,epigastric and RUQ ,sharp/dull painn, 8/10, asking for pain meds. Also has nausea, vomiting, needs medicine for that. Morphine 6 mg IV was give @ 5.20 PM as per nurse. 66 year old woman was admitted for abdominal pain, jaundice,hematuria,lung nodule. Has PMH of HTN, COPD, liver mass, hepatitis C,pancreatic cancer , fibroid, appendectomy. Objective - Vital Signs/Intake and Output Vital Signs (last 24 hours): Temp Pulse Resp BP Pulse Ox 98.0 F 85 16 118/79 95 06/01/17 23:05 06/01/17 23:05 06/01/17 23:05 06/01/17 23:05 06/01/17 21:56 Last Vital Signs Temp 98.0 F 06/01/17 23:05 Pulse 85 06/01/17 23:05 Resp 16 06/01/17 23:05 BP 118/79 06/01/17 23:05 Pulse Ox 95 06/01/17 21:56 - Medications Medications: Current Medications Alprazolam (Xanax) 0.5 mg PO DAILY [facility] PRN Reason: Protocol Atorvastatin Calcium (Lipitor) 10 mg PO DIN [facility] Duloxetine HCl (Cymbalta) 30 mg PO DAILY [facility] Furosemide (Lasix) 40 mg PO DAILY [facility] Gemfibrozil (Lopid) 600 mg PO BID [facility] Glipizide (Glucotrol Xl) 10 mg PO DAILY [facility] Insulin Human Regular (Humulin R Low) 0 units SC ACHS [facility] PRN Reason: Protocol Lisinopril (Zestril) 10 mg PO DAILY [facility] Loratadine (Claritin) 10 mg PO DAILY [facility] Metformin HCl (Glucophage Xr) 1,000 mg PO Q12 [facility] Montelukast Sodium (Singulair) 10 mg PO HS [facility] Last Admin: 06/01/17 23:50 Dose: 10 mg Non-Formulary Medication (Nicotine [Nicotrol]) 10 mg IH Q6 [facility] Pantoprazole Sodium (Protonix Ec Tab) 40 mg PO 0600 [facility] Pregabalin (Lyrica) 75 mg PO DAILY [facility] Quetiapine Fumarate (Seroquel) 200 mg PO HS [facility] PRN Reason: Protocol Last Admin: 06/01/17 23:50 Dose: 200 mg Spironolactone (Aldactone) 25 mg PO DAILY [facility] - Labs Labs: 06/01/17 19:30 06/01/17 19:30 PT 12.7 Seconds (9.9-11.8) H 06/01/17 19:30 INR 1.18 (0.93-1.08) H 06/01/17 19:30 APTT 21.2 Seconds (23.7-30.8) L 06/01/17 19:30 Laboratory Last Values WBC 12.1 10^3/ul (4.5-11.0) H D 06/01/17 19:30 RBC 4.62 10^6/uL (3.5-6.1) 06/01/17 19:30 Hgb 12.9 gm/dL (12.0-16.0) 06/01/17 19:30 Hct 37.8 % (36.0-48.0) 06/01/17 19:30 MCV 81.8 fL (80.0-105.0) 06/01/17 19:30 MCH 27.9 pg (25.0-35.0) 06/01/17 19:30 MCHC 34.1 g/dl (31.0-37.0) 06/01/17 19:30 RDW 18.0 % (11.5-14.5) H 06/01/17 19:30 Plt Count 292 10^3/uL (120.0-450.0) 06/01/17 19:30 MPV 9.1 fl (7.0-11.0) 06/01/17 19:30 Gran % 74.4 % (50.0-68.0) H 06/01/17 19:30 Lymph % (Auto) 17.7 % (22.0-35.0) L 06/01/17 19:30 [place] % (Auto) 6.6 % (1.0-6.0) H 06/01/17 19:30 Eos % (Auto) 1.1 % (1.5-5.0) L 06/01/17 19:30 Baso % (Auto) 0.2 % (0.0-3.0) 06/01/17 19:30 Gran # 8.97 (1.4-6.5) H 06/01/17 19:30 Lymph # 2.1 (1.2-3.4) 06/01/17 19:30 [place] # 0.8 (0.1-0.6) H 06/01/17 19:30 Eos # 0.1 (0.0-0.7) 06/01/17 19:30 Baso # 0.02 K/mm3 (0.0-2.0) 06/01/17 19:30 PT 12.7 Seconds (9.9-11.8) H 06/01/17 19:30 INR 1.18 (0.93-1.08) H 06/01/17 19:30 APTT 21.2 Seconds (23.7-30.8) L 06/01/17 19:30 Sodium 142 mmol/L (132-148) 06/01/17 19:30 Potassium 3.4 mmol/L (3.6-5.0) L 06/01/17 19:30 Chloride 106 mmol/L (98-107) 06/01/17 19:30 Carbon Dioxide 23 mmol/L (21-33) 06/01/17 19:30 Anion Gap 16 (10-20) 06/01/17 19:30 BUN 7 mg/dL (7-21) 06/01/17 19:30 Creatinine 0.7 mg/dL (0.5-1.4) 06/01/17 19:30 Est GFR ( Amer) > 60 06/01/17 19:30 Est GFR (Non-Af Amer) > 60 06/01/17 19:30 Random Glucose 132 mg/dL (70-110) H 06/01/17 19:30 Calcium 9.6 mg/dL (8.4-10.5) 06/01/17 19:30 Total Bilirubin 10.0 mg/dL (0.2-1.3) H 06/01/17 19:30 AST 174 U/L (15-39) H 06/01/17 19:30 ALT 114 U/L (7-56) H 06/01/17 19:30 Alkaline Phosphatase 427 U/L (38-133) H 06/01/17 19:30 Total Protein 8.6 g/dL (5.8-8.3) H 06/01/17 19:30 Albumin 4.1 g/dL (3.0-4.8) 06/01/17 19:30 Globulin 4.6 gm/dL 06/01/17 19:30 Albumin/Globulin Ratio 0.9 (1.1-1.8) L 06/01/17 19:30 Urine Color Yellow (YELLOW) 06/01/17 19:47 Urine Appearance Sl cloudy (CLEAR) 06/01/17 19:47 Urine pH 6.0 (4.7-8.0) 06/01/17 19:47 Ur Specific [place] 1.020 (1.005-1.035) 06/01/17 19:47 Urine Protein Trace mg/dL (<30 mg/dL) H 06/01/17 19:47 Urine Glucose (UA) Negative mg/dL (NEGATIVE) 06/01/17 19:47 Urine Ketones Negative mg/dL (NEGATIVE) 06/01/17 19:47 Urine Blood Negative (NEGATIVE) 06/01/17 19:47 Urine Nitrate Negative (NEGATIVE) 06/01/17 19:47 Urine Bilirubin Negative (NEGATIVE) 06/01/17 19:47 Urine Urobilinogen 0.2 E.U./dL (<1 E.U./dL) 06/01/17 19:47 Ur Leukocyte Esterase Negative Ellie/uL (NEGATIVE) 06/01/17 19:47 Urine RBC 1 - 3 /hpf (0-2) 06/01/17 19:47 Urine WBC 0 - 2 /hpf (0-6) 06/01/17 19:47 Ur Epithelial Cells 3 - 4 /hpf (0-5) 06/01/17 19:47 Urine Bacteria Small (NEG) 06/01/17 19:47 - Constitutional Appears: Well, No Acute Distress - Head Exam Head Exam: ATRAUMATIC, NORMAL INSPECTION, NORMOCEPHALIC - Eye Exam Additional comments: Sclera- yellow. - ENT Exam ENT Exam: Normal External Ear Exam - Neck Exam Neck Exam: Normal Inspection - Respiratory Exam Respiratory Exam: NORMAL BREATHING PATTERN - Cardiovascular Exam Cardiovascular Exam: absent: JVD - GI/Abdominal Exam GI & Abdominal Exam: Soft (Yes.), Tenderness (Mild tenderness in RUQ and epigastric area.), Normal Bowel Sounds. absent: Distended, Firm, Guarding, Rigid, Hernia, Organomegaly, Pulsatile Mass, Rebound - Rectal Exam Rectal Exam: Deferred - Exam Additional comments: Deferred. - Extremities Exam Extremities Exam: Normal Inspection - Back Exam Back Exam: NORMAL INSPECTION - Neurological Exam Neurological Exam: Alert, Oriented x3 - Psychiatric Exam Psychiatric exam: Normal Affect, Normal Mood - Skin Skin Exam: Pallor Assessment and Plan - Assessment and Plan (Free Text) Assessment: RUQ pain. Epigastric pain. Hepatitis C Liver mass. Lung nodules. Peripancreatic cancer. Icterus. Hematuria. Flank pain. DM II. Nausea/Vomiting. Rheumatoid arthritis. GERD. Plan: Zofran 4 mg IV stat. Morphine 6 mg IV was given. Continue present management.
[2017-06-02] MEDS: NICOTINE 10 MG IH SCH ×4 (00:56→17:12)
[2017-06-02] MEDS: Pantoprazole 40 mg EC Tab PO SCH (06:00)
[2017-06-02 07:21] LABS: URINE BILIRUBIN LARGE (NEGATIVE); URINE BLOOD NEGATIVE (NEGATIVE); URINE GLUCOSE (UA) NEGATIVE (NEGATIVE); URINE LEUKOCYTE ESTERASE SMALL Leu/uL (NEGATIVE); URINE NITRATE POSITIVE (NEGATIVE); URINE PROTEIN 30 mg/dL (<30 mg/dL)
[2017-06-02 07:24] LABS: URINE COLOR BROWN (YELLOW)
[2017-06-02 07:36] LABS: URINE APPEARANCE SL CLOUDY (CLEAR); URINE BACTERIA FEW (NEG); URINE RBC 0 - 2 /hpf (0-2)
[2017-06-02] MEDS: Insulin Reg-LOW-Coverage SC SCH ×4 (07:53→21:37)
[2017-06-02] MEDS: HYDROmorphone 0.5 mg/0.5 ml ISec IVP PRN ×4 (09:00→22:44)
[2017-06-02] MEDS ORDERED: GlipiZIDE 10 mg SR Tab PO SCH (10:00)
[2017-06-02] MEDS ORDERED: Potassium Chloride 20 mEq ER Tab PO ONE (14:00)
[2017-06-02] MEDS: Albuterol-Ipratrop 3 mg / 0.5 (3 ml) UD IH SCH ×2 (14:05→19:42)
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
[2017-06-02] MEDS: Enoxaparin 40 mg Syringe SC SCH (15:10)
[2017-06-02] MEDS: POLYETHYLENE GLYCOL 3350 17 GM/Dose PACKET PO SCH (16:10)
[2017-06-02] MEDS ORDERED: Gadodiamide 287 MG/ML VIAL (20ML) IV ONE (17:23)
--- NOTE | 2017-06-02 17:53 | CON ---
DATE: 06/02/2017 REFERRING PHYSICIAN: Dr. Ferrara. REASON FOR CONSULTATION: Chronic obstructive lung disease, sleep apnea syndrome, recently diagnosed with metastatic cancer, mets to liver and lungs. HISTORY OF PRESENT ILLNESS: This is a 66-year-old female with known history of chronic obstructive lung disease, obstructive sleep apnea syndrome, hepatitis C, known to have metastatic disease with tumor, head of the pancreas with mets to the lungs and liver, comes into the ER with abdominal pain, family noticed her eyes to be jaundiced, had some nausea, no dysuria, no leg pain or leg swelling. PAST MEDICAL HISTORY: Chronic obstructive lung disease, hypertension, history of TIAs, diabetes, pancreatic cancer with metastatic disease, degenerative joint disease, GERD and uterine fibroids. ALLERGIES: None known. SOCIAL HISTORY: She is smoker. Denies any alcohol use. FAMILY HISTORY: Significant for sleep apnea and obstructive lung disease. MEDICATIONS: She is on Aldactone 25 mg daily, Claritin 10 mg daily, Cymbalta 30 mg daily, Dilaudid 0.5 mg q. 4 hours p.r.n., glipizide 10 mg daily, potassium 40 mEq daily, Lasix 40 mg daily, Lipitor 10 mg daily, Lopid 600 mg twice a day, Lyrica 75 mg daily, nicotine patch 10 mg q. 6 hour, Protonix 40 mg daily, Seroquel 200 mg at bedtime, Singulair 10 mg daily, Xanax 0.5 mg daily, Zestril 10 mg daily. REVIEW OF SYSTEMS: No headache, no rhinitis. Does have some cough and shortness of breath. No chest pain. Has abdominal pain. Icterus eyes, some nausea. No dysuria. No leg pain or leg swelling. PHYSICAL EXAMINATION: GENERAL: Sitting up in a side of the bed with decrease abdominal pain. VITAL SIGNS: Temp is 98, heart rate is 93, respiratory rate is 20, blood pressure is 114/80, pulse ox 98% on room air. HEENT: Moist mucous membranes. Crowded airway. Mallampati score is 4. NECK: Supple. No JVD. LUNGS: A few scattered crackles. HEART: S1 and S2. ABDOMEN: Positive epigastric area tenderness. EXTREMITIES: There is no edema. NEUROLOGICAL: Awake, alert. Follows simple commands. LABORATORY DATA: Shows hemoglobin 12.9, hematocrit 37.8, WBC 12.1, and platelet count is 292. INR is 1.18. PTT is 21. Sodium 142, potassium 3.4, chloride 106, bicarbonate 23, BUN 7, creatinine 0.7, glucose 132, calcium 9.6. Total bilirubin 10.0. AST is 174, ALT is 114, alkaline phosphatase is 427, albumin is 401. CT of the abdomen and pelvis done last night, which shows multiple bilateral pulmonary nodules consistent the metastatic disease and also pericardial adenopathy, increased pancreatic head/peripancreatic mass now with distention of gallbladder and dilated ducts consistent the biliary duct obstruction, increased metastatic disease in the liver. IMPRESSION AND PLAN: Metastatic pancreatic cancer to the liver, lungs and probably no obstructing the duct causing her decompensated liver disease with extra size, also has a chronic obstructive lung disease, obstructive sleep apnea syndrome, hepatitis C. I agree with Dr. Ferrara plan and management. GI consult has been called. MRCP has been ordered. Continue bronchodilators, keep head at 45 degrees. avoid sedatives, supportive care. Overall poor prognosis. Gastric and DVT prophylaxis. Case discussed with Dr. Ferrara and spoke to nursing staff and also spoke to family. Thank you. We will follow with you. Linnea Stephen MD
--- NOTE | 2017-06-02 19:56 | MRI ---
EXAM: MR Abdomen Without and With Intravenous Contrast CLINICAL HISTORY: The patient age is 66 years old and is female; Signs and symptoms; Other: Jaundice; Additional info: Juandice/dilated biliary ducts/liver mass/w mriabd Facility exam id and description: Mri mrcpabd mrcp and abd w/wo contrast TECHNIQUE: Multiplanar magnetic resonance images of the abdomen without and with intravenous contrast. EXAM DATE/TIME: 06/02/2017 9:30 AM COMPARISON: CT - ABD PELVIS W/O PO OR IV CONT 06/01/2017 10:38:31 PM FINDINGS: Lower thorax: Multiple pulmonary nodules are visualized in the lung bases, concerning for metastatic disease. One of the larger nodules in the right lower lobe on series 6 image 107 and measures 2.6 x 2.2 cm. A few enlarged pericardial lymph nodes are identified. One of these lymph nodes measures 2.3 x 1.3 cm. There is a band of atelectatic change at the right lung base. Liver: Multiple hepatic masses are visualized, consistent with metastases. One of the larger hepatic masses is visualized within the right hepatic lobe measuring 3.4 x 2.7 cm. Gallbladder and bile ducts: The gallbladder is distended, without discrete gallstones. There is biliary dilatation. The common bile duct measures 1.4 cm in diameter. The common bile duct tapers, and is not visualized distally. Pancreas: Pancreatic/peripancreatic masses are identified, concerning for malignancy. Posterior superior to the pancreas, this measures 5.7 x 3.6 x 3.7 cm. This causes mass effect on the distal common bile duct. Superior to the pancreatic body, this measures 5.6 x 3.0 x 2.7 cm. There is no significant dilatation of the pancreatic duct. Spleen: No splenomegaly. Adrenals: No mass. Kidneys and ureters: T2 hyperintense bilateral renal cysts are identified. Of the upper pole the left kidney, this measures 2.3 cm. No hydronephrosis. Stomach and bowel: There is mild wall thickening of the antrum of the stomach, suggestive of gastritis. Intraperitoneal space: No significant fluid collection. Vasculature: No abdominal aortic aneurysm. Lymph nodes: There is an enlarged lymph node anterior to the right psoas muscle at the level of the right renal hilum measuring 2.3 x 1.9 cm. IMPRESSION: 1. Multiple pulmonary nodules are visualized in the lung bases, concerning for metastatic disease. 2. The gallbladder is distended, without discrete gallstones. 3. Multiple hepatic masses are visualized, consistent with metastases. 4. A few enlarged pericardial lymph nodes are identified. 5. There is biliary dilatation. The common bile duct measures 1.4 cm in diameter. The common bile duct tapers, and is not visualized distally. 6. Pancreatic/peripancreatic masses are identified, concerning for malignancy. Posterior superior to the pancreas, this measures 5.7 x 3.6 x 3.7 cm. This causes mass effect on the distal common bile duct. Superior to the pancreatic body, this measures 5.6 x 3.0 x 2.7 cm. 7. There is an enlarged lymph node anterior to the right psoas muscle at the level of the right renal hilum measuring 2.3 x 1.9 cm. 8. There is mild wall thickening of the antrum of the stomach, suggestive of gastritis. 9. Additional findings described above.
--- NOTE | 2017-06-02 22:54 | CP.PCM.PN ---
Subjective - Date & Time of Evaluation Date of Evaluation: 06/02/17 Time of Evaluation: 22:54 - Subjective Subjective: Patient was seen because of nausea and epigastric pain. Has no other complaints now She is on dilaudid. ROS:Negative except as mentioned above. 66 year old female was admitted for abdominal pain, hematuria, jaundice,lung nodule. PMH:Pancreatic cancer , HTN, COPD, liver mass, hepatitis C,fibroid, appendectomy. Objective - Vital Signs/Intake and Output Vital Signs (last 24 hours): Temp Pulse Resp BP Pulse Ox 98.4 F 80 20 131/76 96 06/02/17 16:00 06/02/17 19:43 06/02/17 16:00 06/02/17 16:00 06/02/17 16:00 Intake and Output: 06/02/17 06/03/17 18:59 06:59 Intake Total 300 Balance 300 - Medications Medications: Current Medications Albuterol/Ipratropium (Duoneb 3 Mg/0.5 Mg (3 Ml) Ud) 3 ml IH [id number] [facility] Last Admin: 06/02/17 19:42 Dose: 3 ml Alprazolam (Xanax) 0.5 mg PO DAILY [facility] PRN Reason: Protocol Last Admin: 06/02/17 09:02 Dose: 0.5 mg Atorvastatin Calcium (Lipitor) 10 mg PO DIN [facility] Last Admin: 06/02/17 16:10 Dose: 10 mg Duloxetine HCl (Cymbalta) 30 mg PO DAILY [facility] Last Admin: 06/02/17 09:01 Dose: 30 mg Enoxaparin Sodium (Lovenox) 40 mg SC DAILY [facility] PRN Reason: Protocol Last Admin: 06/02/17 15:10 Dose: 40 mg Furosemide (Lasix) 40 mg PO DAILY [facility] Last Admin: 06/02/17 09:01 Dose: 40 mg Gemfibrozil (Lopid) 600 mg PO BID [facility] Last Admin: 06/02/17 17:11 Dose: 600 mg Glipizide (Glucotrol Xl) 10 mg PO DAILY [facility] Last Admin: 06/02/17 09:01 Dose: 10 mg Hydromorphone HCl (Dilaudid) 0.5 mg IVP Q4H PRN PRN Reason: Pain, moderate (4-7) Last Admin: 06/02/17 22:44 Dose: 0.5 mg Insulin Human Regular (Humulin R Low) 0 units SC [facility] PRN Reason: Protocol Last Admin: 06/02/17 21:37 Dose: Not Given Lisinopril (Zestril) 10 mg PO DAILY [facility] Last Admin: 06/02/17 09:02 Dose: 10 mg Loratadine (Claritin) 10 mg PO DAILY [facility] Last Admin: 06/02/17 09:02 Dose: 10 mg Montelukast Sodium (Singulair) 10 mg PO HS [facility] Last Admin: 06/02/17 21:43 Dose: 10 mg Non-Formulary Medication (Nicotine [Nicotrol]) 10 mg IH Q6 [facility] Last Admin: 06/02/17 17:12 Dose: Not Given Pantoprazole Sodium (Protonix Ec Tab) 40 mg PO 0600 [facility] Last Admin: 06/02/17 06:00 Dose: 40 mg Polyethylene Glycol (Miralax) 17 gm PO DAILY [facility] Last Admin: 06/02/17 16:10 Dose: 17 gm Pregabalin (Lyrica) 75 mg PO DAILY [facility] Last Admin: 06/02/17 09:02 Dose: 75 mg Quetiapine Fumarate (Seroquel) [address] [facility] PRN Reason: Protocol Last Admin: 06/02/17 21:42 Dose: 200 mg Spironolactone (Aldactone) 25 mg PO DAILY [facility] Last Admin: 06/02/17 09:01 Dose: 25 mg - Labs Labs: 06/01/17 19:30 06/01/17 19:30 PT 12.7 Seconds (9.9-11.8) H 06/01/17 19:30 INR 1.18 (0.93-1.08) H 06/01/17 19:30 APTT 21.2 Seconds (23.7-30.8) L 06/01/17 19:30 - Constitutional Appears: Well, No Acute Distress - Head Exam Head Exam: ATRAUMATIC, NORMAL INSPECTION, NORMOCEPHALIC - Eye Exam Eye Exam: Normal appearance - ENT Exam ENT Exam: Normal External Ear Exam - Neck Exam Neck Exam: Normal Inspection - Respiratory Exam Respiratory Exam: NORMAL BREATHING PATTERN - Cardiovascular Exam Cardiovascular Exam: absent: JVD - GI/Abdominal Exam GI & Abdominal Exam: Normal Bowel Sounds. absent: Tenderness - Rectal Exam Rectal Exam: Deferred - Exam Additional comments: Deferred. - Extremities Exam Extremities Exam: Normal Inspection - Back Exam Back Exam: NORMAL INSPECTION - Neurological Exam Neurological Exam: Alert, Oriented x3 - Psychiatric Exam Psychiatric exam: Normal Affect, Normal Mood - Skin Skin Exam: Normal Color Assessment and Plan - Assessment and Plan (Free Text) Assessment: Peripancreatic cancer. Icterus. Hematuria. Flank pain. DM II. Nausea/Vomiting. Rheumatoid arthritis. GERD. RUQ pain. Epigastric pain. Hepatitis C Liver mass. Lung nodules. Plan: Morphine 6 mg IV stat. Zofran 4 mg IV stat. Continue present management.
[2017-06-03] MEDS: NICOTINE 10 MG IH SCH ×4 (00:21→17:39)
[2017-06-03] MEDS: Albuterol-Ipratrop 3 mg / 0.5 (3 ml) UD IH SCH ×4 (01:00→19:48)
--- NOTE | 2017-06-03 04:15 | PN ---
DATE: SUBJECTIVE: The patient was seen and examined at the bedside. Still having abdominal pain, but getting little bit better. Still having discoloration of the face. No nausea or vomiting. Denies any hematuria or hematochezia. No swelling of the leg. No chest pain or palpitation. No headache or dizziness. PHYSICAL EXAMINATION VITAL SIGNS: Temperature 98.4, pulse 80, blood pressure 131/76, respiratory rate 20, oxygen saturation 96%. HEENT: Head normocephalic, atraumatic. Eyes: PERRLA. Extraocular movements intact. Conjunctivae clear. Nose patent. Mucous membrane moist. NECK: Supple. No carotid bruit, no thyromegaly. CHEST: Bilaterally symmetrical. HEART: S1 and S2 positive. LUNGS: Clear to auscultation. ABDOMEN: Soft. Bowel sounds are present. No organomegaly. EXTREMITIES: No edema, no cyanosis. NEUROLOGIC: The patient is awake and alert. Moving all four extremities. No focal deficit. MEDICATIONS: Aldactone, Claritin, Cymbalta, Dilaudid, albuterol, Glucotrol, insulin, Lasix, Lipitor, Lovenox, Lyrica, MiraLax, Nicotrol, Protonix, Seroquel, Singulair, Xanax, Zestril and Zofran. LABORATORY DATA: White blood cell is 12.1, hemoglobin 12.9, hematocrit 37.8 and platelets 292. Sodium 142, potassium 3.7, glucose noted and 153, random glucose 132, AST 174 and ALT 114. ASSESSMENT AND PLAN: Ms. Ivan Bazan is a 66-year-old lady with hypokalemia, uncontrolled diabetes mellitus, abnormal liver function test, leukocytosis, proteinuria, urinary tract infection, seen by Dr. Navarrete, oncologist and Adriana Cisneros, nurse practitioner of Dr. Merchant. The patient has history of hepatitis C, liver mass, lung nodules, pancreatic cancer, fibromyalgia, diabetes mellitus type 2 uncontrolled, gastroesophageal reflux disease, dyspepsia, chronic obstructive pulmonary disease, transient ischemic attack, history of colon resection, appendectomy, port placement, leukocytosis. Seen by Dr. Lindo and Dr. Stephen. The patient is still active smoker, alcohol abuser. She has metastatic pancreatic cancer to the liver, lungs and probably nonobstructing duct causing decompensated liver disease with extra size, obstructive sleep apnea syndrome. Magnetic resonance cholangiopancreatography ordered. Continue bronchodilators. Keep head elevated at 45 degrees. Avoid sedatives. Overall prognosis poor. Discussion done with Dr. Stephen. Gastrointestinal and deep venous thrombosis prophylaxis. Repeat labs. Georgina Ferrara MD MTDD
[2017-06-03] MEDS: Pantoprazole 40 mg EC Tab PO SCH (06:23)
[2017-06-03 07:12] LABS: ALB/GLOB RATIO 0.9 (1.1-1.8); ALBUMIN 3.8 g/dL (3.0-4.8); ALT/SGPT 101 U/L (7-56); AST/SGOT 127 U/L (15-39); BLOOD UREA NITROGEN 11 mg/dL (7-21); CALCIUM 9.6 mg/dL (8.4-10.5); GFR AFRICAN-AMERICAN > 60; GFR NON-AFRICAN AMERICAN > 60
[2017-06-03] MEDS: Insulin Reg-LOW-Coverage SC SCH ×4 (08:22→21:19)
[2017-06-03] MEDS: Enoxaparin 40 mg Syringe SC SCH (09:33)
[2017-06-03] MEDS: POLYETHYLENE GLYCOL 3350 17 GM/Dose PACKET PO SCH (09:33)
[2017-06-03] MEDS: HYDROmorphone 0.5 mg/0.5 ml ISec IVP PRN ×2 (09:41→18:03)
--- NOTE | 2017-06-03 13:09 | CP.PCM.PN ---
<Amelia Wright - Last Filed: 06/03/17 13:04> Subjective - Date & Time of Evaluation Date of Evaluation: 06/03/17 Time of Evaluation: 08:50 - Subjective Subjective: S&E at bedside earlier today, still have abdominal pain but no increase in intensity. No N/V, fever or chills, s/p Relistor had BM early this am with relief, no reports of bleeding. Had MRCP yesterday reports pulmonary nodules, biliary dilation, hepatic masses and enlarged pericardial lymph nodes, report reviewed. Objective - Vital Signs/Intake and Output Vital Signs (last 24 hours): Temp Pulse Resp BP Pulse Ox 98.6 F 90 19 127/100 H 96 06/03/17 09:39 06/03/17 09:39 06/03/17 09:39 06/03/17 09:39 06/03/17 09:39 Intake and Output: 06/03/17 06/03/17 06:59 18:59 Intake Total 300 480 Balance 300 480 - Medications Medications: Current Medications Albuterol/Ipratropium (Duoneb 3 Mg/0.5 Mg (3 Ml) Ud) 3 ml IH [id number] [facility] Last Admin: 06/03/17 08:11 Dose: 3 ml Alprazolam (Xanax) 0.5 mg PO DAILY [facility] PRN Reason: Protocol Last Admin: 06/03/17 09:33 Dose: 0.5 mg Atorvastatin Calcium (Lipitor) 10 mg PO DIN [facility] Last Admin: 06/02/17 16:10 Dose: 10 mg Duloxetine HCl (Cymbalta) 30 mg PO DAILY [facility] Last Admin: 06/03/17 09:33 Dose: 30 mg Enoxaparin Sodium (Lovenox) 40 mg SC DAILY [facility] PRN Reason: Protocol Last Admin: 06/03/17 09:33 Dose: 40 mg Furosemide (Lasix) 40 mg PO DAILY [facility] Last Admin: 06/03/17 09:32 Dose: 40 mg Gemfibrozil (Lopid) 600 mg PO BID [facility] Last Admin: 06/03/17 09:32 Dose: 600 mg Glipizide (Glucotrol Xl) 10 mg PO DAILY [facility] Last Admin: 06/02/17 09:01 Dose: 10 mg Hydromorphone HCl (Dilaudid) 0.5 mg IVP Q4H PRN PRN Reason: Pain, moderate (4-7) Last Admin: 06/03/17 09:41 Dose: 0.5 mg Insulin Human Regular (Humulin R Low) 0 units SC [facility] PRN Reason: Protocol Last Admin: 06/03/17 12:01 Dose: 1 units Lisinopril (Zestril) 10 mg PO DAILY [facility] Last Admin: 06/03/17 09:32 Dose: 10 mg Loratadine (Claritin) 10 mg PO DAILY [facility] Last Admin: 06/03/17 09:32 Dose: 10 mg Montelukast Sodium (Singulair) 10 mg PO HS [facility] Last Admin: 06/02/17 21:43 Dose: 10 mg Non-Formulary Medication (Nicotine [Nicotrol]) 10 mg IH Q6 [facility] Last Admin: 06/03/17 06:21 Dose: Not Given Ondansetron HCl (Zofran Inj) 4 mg IVP Q6H PRN PRN Reason: Nausea/Vomiting Last Admin: 06/02/17 23:06 Dose: 4 mg Pantoprazole Sodium (Protonix Ec Tab) 40 mg PO 0600 [facility] Last Admin: 06/03/17 06:23 Dose: 40 mg Polyethylene Glycol (Miralax) 17 gm PO DAILY [facility] Last Admin: 06/03/17 09:33 Dose: 17 gm Pregabalin (Lyrica) 75 mg PO DAILY [facility] Last Admin: 06/03/17 09:32 Dose: 75 mg Quetiapine Fumarate (Seroquel) 200 mg PO HS [facility] PRN Reason: Protocol Last Admin: 06/02/17 21:42 Dose: 200 mg Spironolactone (Aldactone) 25 mg PO DAILY [facility] Last Admin: 06/03/17 09:32 Dose: 25 mg - Labs Labs: 06/01/17 19:30 06/03/17 06:30 PT 12.7 Seconds (9.9-11.8) H 06/01/17 19:30 INR 1.18 (0.93-1.08) H 06/01/17 19:30 APTT 21.2 Seconds (23.7-30.8) L 06/01/17 19:30 - Constitutional Appears: No Acute Distress - Head Exam Head Exam: NORMOCEPHALIC - Eye Exam Eye Exam: PERRL, Scleral icterus - ENT Exam ENT Exam: Mucous Membranes Moist - Neck Exam Neck Exam: Normal Inspection - Respiratory Exam Respiratory Exam: NORMAL BREATHING PATTERN. absent: Respiratory Distress - Cardiovascular Exam Cardiovascular Exam: +S1, +S2 - GI/Abdominal Exam GI & Abdominal Exam: Soft, Tenderness, Normal Bowel Sounds. absent: Distended, Guarding, Rebound - Extremities Exam Extremities Exam: Normal Capillary Refill. absent: Calf Tenderness, Pedal Edema - Neurological Exam Neurological Exam: Alert, Awake, Oriented x3 - Skin Skin Exam: Dry, Warm Additional comments: jaundice Assessment and Plan - Assessment and Plan (Free Text) Assessment: ASSESSMENT: Obstructive Jaundice Pancreatic Mass Hepatitis C Elevated LFT Liver Mass Lung nodules DM type II COPD Fibromyalgia Constipation PLAN: trend lft continue diet as tolerated pain mgt continue GI prophylaxsis DVT prophylaxsis continue Miralax oncology following hold glipizide and Glucotrol, elevated LFT, on insulin coverage,may need to hold lipitor. reviewed mrcp w/radiologist NPO 12 midnight for ERCP on 06/03/17, discuss w/ patient repeat labs in the am. Seen and discussed with Dr. Merchant. <Thang Merchant V - Last Filed: 06/04/17 17:19> Objective - Vital Signs/Intake and Output Vital Signs (last 24 hours): Temp Pulse Resp BP Pulse Ox 99.2 F 91 H 18 168/99 H 96 06/03/17 22:00 06/03/17 22:00 06/03/17 22:00 06/03/17 22:00 06/03/17 22:00 Intake and Output: 06/03/17 06/04/17 18:59 06:59 Intake Total 480 420 Balance 480 420 - Medications Medications: Current Medications Albuterol/Ipratropium (Duoneb 3 Mg/0.5 Mg (3 Ml) Ud) 3 ml IH [id number] [facility] Last Admin: 06/03/17 19:48 Dose: 3 ml Alprazolam (Xanax) 0.5 mg PO DAILY [facility] PRN Reason: Protocol Last Admin: 06/03/17 09:33 Dose: 0.5 mg Atorvastatin Calcium (Lipitor) 10 mg PO DIN [facility] Last Admin: 06/02/17 16:10 Dose: 10 mg Duloxetine HCl (Cymbalta) 30 mg PO DAILY [facility] Last Admin: 06/03/17 09:33 Dose: 30 mg Enoxaparin Sodium (Lovenox) 40 mg SC DAILY [facility] PRN Reason: Protocol Last Admin: 06/03/17 09:33 Dose: 40 mg Furosemide (Lasix) 40 mg PO DAILY [facility] Last Admin: 06/03/17 09:32 Dose: 40 mg Gemfibrozil (Lopid) 600 mg PO BID [facility] Last Admin: 06/03/17 18:02 Dose: 600 mg Glipizide (Glucotrol Xl) 10 mg PO DAILY [facility] Last Admin: 06/02/17 09:01 Dose: 10 mg Hydromorphone HCl (Dilaudid) 0.5 mg IVP Q4H PRN PRN Reason: Pain, moderate (4-7) Last Admin: 06/03/17 18:03 Dose: 0.5 mg Insulin Human Regular (Humulin R Low) 0 units SC ACHS [facility] PRN Reason: Protocol Last Admin: 06/03/17 21:19 Dose: 1 units Lisinopril (Zestril) 10 mg PO DAILY [facility] Last Admin: 06/03/17 09:32 Dose: 10 mg Loratadine (Claritin) 10 mg PO DAILY [facility] Last Admin: 06/03/17 09:32 Dose: 10 mg Montelukast Sodium (Singulair) 10 mg PO HS [facility] Last Admin: 06/03/17 21:19 Dose: 10 mg Non-Formulary Medication (Nicotine [Nicotrol]) 10 mg IH Q6 [facility] Last Admin: 06/03/17 17:39 Dose: Not Given Ondansetron HCl (Zofran Inj) 4 mg IVP Q6H PRN PRN Reason: Nausea/Vomiting Last Admin: 06/03/17 19:42 Dose: 4 mg Pantoprazole Sodium (Protonix Ec Tab) 40 mg PO 0600 [facility] Last Admin: 06/03/17 06:23 Dose: 40 mg Polyethylene Glycol (Miralax) 17 gm PO DAILY [facility] Last Admin: 06/03/17 09:33 Dose: 17 gm Pregabalin (Lyrica) 75 mg PO DAILY [facility] Last Admin: 06/03/17 09:32 Dose: 75 mg Quetiapine Fumarate (Seroquel) 200 mg PO HS [facility] PRN Reason: Protocol Last Admin: 07/27/17 21:19 Dose: 200 mg Spironolactone (Aldactone) 25 mg PO DAILY [facility] Last Admin: 06/03/17 09:32 Dose: 25 mg - Labs Labs: 06/01/17 19:30 06/03/17 06:30 PT 12.7 Seconds (9.9-11.8) H 06/01/17 19:30 INR 1.18 (0.93-1.08) H 06/01/17 19:30 APTT 21.2 Seconds (23.7-30.8) L 06/01/17 19:30 Attending/Attestation - Attestation I have personally seen and examined this patient.: Yes I have fully participated in the care of the patient.: Yes I have reviewed all pertinent clinical information, including history, physical exam and plan: Yes Notes (Text): t
[2017-06-03 14:41] LABS: HEPATITIS C ANTIBODY REACTIVE (NEGATIVE)
[2017-06-04] MEDS: NICOTINE 10 MG IH SCH ×4 (00:31→17:31)
--- NOTE | 2017-06-04 00:56 | CP.PCM.PN ---
Subjective - Date & Time of Evaluation Date of Evaluation: 06/03/17 Time of Evaluation: 12:00 - Subjective Subjective: S&E at bedside earlier today, still have abdominal pain but no increase in intensity. No N/V, fever or chills, s/p Relistor had BM early this am with relief, no reports of bleeding. Had MRCP yesterday reports pulmonary nodules, biliary dilation, hepatic masses and enlarged pericardial lymph nodes, report reviewed. Objective - Vital Signs/Intake and Output Vital Signs (last 24 hours): Temp Pulse Resp BP Pulse Ox 99.2 F 91 H 18 168/99 H 96 06/03/17 22:00 06/03/17 22:00 06/03/17 22:00 06/03/17 22:00 06/03/17 22:00 Intake and Output: 06/03/17 06/04/17 18:59 06:59 Intake Total 480 420 Balance 480 420 - Medications Medications: Current Medications Albuterol/Ipratropium (Duoneb 3 Mg/0.5 Mg (3 Ml) Ud) 3 ml IH [id number] [facility] Last Admin: 06/03/17 19:48 Dose: 3 ml Alprazolam (Xanax) 0.5 mg PO DAILY [facility] PRN Reason: Protocol Last Admin: 06/03/17 09:33 Dose: 0.5 mg Atorvastatin Calcium (Lipitor) 10 mg PO DIN [facility] Last Admin: 06/02/17 16:10 Dose: 10 mg Duloxetine HCl (Cymbalta) 30 mg PO DAILY [facility] Last Admin: 06/03/17 09:33 Dose: 30 mg Enoxaparin Sodium (Lovenox) 40 mg SC DAILY [facility] PRN Reason: Protocol Last Admin: 06/03/17 09:33 Dose: 40 mg Furosemide (Lasix) 40 mg PO DAILY [facility] Last Admin: 06/03/17 09:32 Dose: 40 mg Gemfibrozil (Lopid) 600 mg PO BID [facility] Last Admin: 06/03/17 18:02 Dose: 600 mg Glipizide (Glucotrol Xl) 10 mg PO DAILY [facility] Last Admin: 06/02/17 09:01 Dose: 10 mg Hydromorphone HCl (Dilaudid) 0.5 mg IVP Q4H PRN PRN Reason: Pain, moderate (4-7) Last Admin: 06/03/17 18:03 Dose: 0.5 mg Insulin Human Regular (Humulin R Low) 0 units SC ACHS [facility] PRN Reason: Protocol Last Admin: 06/03/17 21:19 Dose: 1 units Lisinopril (Zestril) 10 mg PO DAILY [facility] Last Admin: 06/03/17 09:32 Dose: 10 mg Loratadine (Claritin) 10 mg PO DAILY [facility] Last Admin: 06/03/17 09:32 Dose: 10 mg Montelukast Sodium (Singulair) 10 mg PO HS [facility] Last Admin: 06/03/17 21:19 Dose: 10 mg Non-Formulary Medication (Nicotine [Nicotrol]) 10 mg IH Q6 [facility] Last Admin: 06/04/17 00:31 Dose: Not Given Ondansetron HCl (Zofran Inj) 4 mg IVP Q6H PRN PRN Reason: Nausea/Vomiting Last Admin: 06/03/17 19:42 Dose: 4 mg Pantoprazole Sodium (Protonix Ec Tab) 40 mg PO 0600 [facility] Last Admin: 06/03/17 06:23 Dose: 40 mg Polyethylene Glycol (Miralax) 17 gm PO DAILY [facility] Last Admin: 06/03/17 09:33 Dose: 17 gm Pregabalin (Lyrica) 75 mg PO DAILY [facility] Last Admin: 06/03/17 09:32 Dose: 75 mg Quetiapine Fumarate (Seroquel) 200 mg PO [facility] PRN Reason: Protocol Last Admin: 06/03/17 21:19 Dose: 200 mg Spironolactone (Aldactone) 25 mg PO DAILY [facility] Last Admin: 06/03/17 09:32 Dose: 25 mg - Labs Labs: 06/01/17 19:30 06/03/17 06:30 PT 12.7 Seconds (9.9-11.8) H 06/01/17 19:30 INR 1.18 (0.93-1.08) H 06/01/17 19:30 APTT 21.2 Seconds (23.7-30.8) L 06/01/17 19:30 - Constitutional Appears: Well - Head Exam Head Exam: ATRAUMATIC, NORMAL INSPECTION, NORMOCEPHALIC - Eye Exam Eye Exam: EOMI, Normal appearance, PERRL Pupil Exam: NORMAL ACCOMODATION, PERRL - ENT Exam ENT Exam: Mucous Membranes Moist, Normal Exam - Neck Exam Neck Exam: Full ROM, Normal Inspection. absent: Lymphadenopathy - Respiratory Exam Respiratory Exam: Clear to Ausculation Bilateral, NORMAL BREATHING PATTERN - Cardiovascular Exam Cardiovascular Exam: REGULAR RHYTHM, +S1, +S2. absent: Murmur - GI/Abdominal Exam GI & Abdominal Exam: Soft, Normal Bowel Sounds. absent: Tenderness - Rectal Exam Rectal Exam: NORMAL INSPECTION - Exam Exam: Circumcision, NORMAL INSPECTION External exam: NORMAL EXTERNAL EXAM Speculum exam: NORMAL SPECULUM EXAM Bimanual exam: NORMAL BIMANUAL EXAM - Extremities Exam Extremities Exam: Full ROM, Normal Capillary Refill, Normal Inspection. absent : Joint Swelling, Pedal Edema - Back Exam Back Exam: NORMAL INSPECTION - Neurological Exam Neurological Exam: Alert, Awake, CN II-XII Intact, Normal Gait, Oriented x3 - Psychiatric Exam Psychiatric exam: Normal Affect, Normal Mood - Skin Skin Exam: Dry, Intact, Normal Color, Warm Assessment and Plan (1) Hematuria Status: Acute (2) Jaundice Status: Acute (3) Abdominal pain Status: Acute (4) Benzodiazepine overdose Status: Acute (5) Diverticulitis Status: Acute (6) Dizziness Status: Acute (7) Gross hematuria Status: Acute (8) Liver lesion Status: Acute (9) Malignancies Status: Acute (10) Malignant tumor head pancreas Status: Acute (11) Overdose Status: Acute - Assessment and Plan (Free Text) Assessment: Obstructive Jaundice Pancreatic Mass Hepatitis C Elevated LFT Liver Mass Lung nodules DM type II COPD Fibromyalgia Constipation PLAN: trend lft continue diet as tolerated pain mgt continue GI prophylaxsis DVT prophylaxsis continue Miralax oncology following hold glipizide and Glucotrol, elevated LFT, on insulin coverage,may need to hold lipitor. reviewed mrcp w/radiologist discuss w/ patient repeat labs in the am.
[2017-06-04] MEDS: Albuterol-Ipratrop 3 mg / 0.5 (3 ml) UD IH SCH ×4 (01:06→19:40)
--- NOTE | 2017-06-04 03:33 | PN ---
PULMONARY PROGRESS NOTE DATE: 06/03/2017 REFERRING PHYSICIAN: Dr. Ferrara. SUBJECTIVE: She is sitting at the side of the bed, feels better, still have abdominal pain, scheduled for ERCP tomorrow for possible stent. Abdominal pain has improved. No chest pain. No dysuria. No leg pain or leg swelling. OBJECTIVE: GENERAL: No acute distress. VITAL SIGNS: Temperature is 98, heart rate is 90, respiratory rate is 18, blood pressure 176/95, pulse ox 95% on room air. HEENT: Moist mucous membranes. Crowded airway. Mallampati score is 4. NECK: Supple. No JVD. LUNGS: Fair airflow with few rhonchi. CARDIOPULMONARY: S1 and S2. ABDOMEN: Soft and nontender. No organomegaly. EXTREMITIES: No edema. NEUROLOGIC: Awake and alert. Follows simple commands. MEDICATIONS: She is on Aldactone 25 mg daily, Claritin 10 mg daily, Cymbalta 30 mg daily, hydromorphone 0.5 mg q.4 hours p.r.n., DuoNeb q.6 hours, glipizide 10 mg daily, insulin coverage, Lasix 40 mg daily, Lipitor 10 mg daily, Lopid 600 mg twice a day, Lovenox 40 mg daily, Lyrica 75 mg daily, MiraLax 17 g daily, nicotine 10 mg q.6 hours, Protonix 40 mg daily, Seroquel 200 mg at bedtime, Singulair 10 mg daily, Xanax 0.5 mg daily, lisinopril 10 mg daily, and Zofran p.r.n. basis. LABORATORY DATA: Shows blood sugar of 151. Carcinoembryonic antigen is 4.5. Hepatitis C antibody is reactive. IMPRESSION AND PLAN: Metastatic pancreatic cancer to liver and lungs, end up with ductal obstruction; chronic obstructive lung disease; obstructive sleep apnea syndrome; hepatitis C. The patient is seen by gastroenterology, scheduled for endoscopic retrograde cholangiopancreatography for possible stent. Continue gastric and deep venous thrombosis prophylaxis, bronchodilator, sleep apnea precaution , needs close cardiopulmonary monitoring while sedated. Linnea Stephen MD [facility] # [id number]
[2017-06-04] MEDS: Pantoprazole 40 mg EC Tab PO SCH (05:44)
[2017-06-04 07:04] LABS: ALB/GLOB RATIO 0.9 (1.1-1.8); ALBUMIN 3.9 g/dL (3.0-4.8); BILIRUBIN,DIRECT 10.2 mg/dL (0.0-0.4)
[2017-06-04] MEDS: Insulin Reg-LOW-Coverage SC SCH ×5 (07:44→22:10)
[2017-06-04] MEDS: HYDROmorphone 0.5 mg/0.5 ml ISec IVP PRN ×2 (07:45→20:27)
[2017-06-04 08:52] LABS: BASO # 0.01 K/mm3 (0.0-2.0); BASO % 0.1 % (0.0-3.0); EOS # 0.2 (0.0-0.7); EOS % 1.8 % (1.5-5.0); GRAN # 5.72 (1.4-6.5); GRAN % 70.2 % (50.0-68.0); HEMOGLOBIN 11.7 gm/dL (12.0-16.0); LYMPH # 1.6 (1.2-3.4); LYMPH % 19.3 % (22.0-35.0); MEAN CELL VOLUME 82.7 fL (80.0-105.0); MEAN CORPUSCULAR HEMOGLOBIN 27.8 pg (25.0-35.0); MEAN CORPUSCULAR HGB CONC 33.6 g/dl (31.0-37.0); MEAN PLATELET VOLUME 10.3 fl (7.0-11.0); MONO # 0.7 (0.1-0.6); MONO % 8.6 % (1.0-6.0); PLATELET COUNT 259 10^3/uL (120.0-450.0); RBC 4.21 10^6/uL (3.5-6.1); RED CELL DISTRIBUTION WIDTH 18.5 % (11.5-14.5); WHITE BLOOD COUNT 8.2 10^3/ul (4.5-11.0)
[2017-06-04 09:26] LABS: INR 1.11 (0.93-1.08); PARTIAL THROMBOPLASTIN TIME 26.8 Seconds (23.7-30.8)
[2017-06-04] MEDS: Enoxaparin 40 mg Syringe SC SCH (09:44)
[2017-06-04] MEDS: Dextrose 5%/0.45% NS 1,000 ML IV SCH (09:44)
[2017-06-04] MEDS: POLYETHYLENE GLYCOL 3350 17 GM/Dose PACKET PO SCH (10:27)
[2017-06-04] MEDS ORDERED: Iohexol 240 (50 ml) ONE (14:01)
[2017-06-04] MEDS ORDERED: Indomethacin 50 MG Suppository PR ONE (14:03)
[2017-06-04] MEDS ORDERED: Propofol 10 mg/ml Inj (20 ML) ONE (14:39)
[2017-06-04] MEDS ORDERED: Midazolam 2 MG/2 ML VIAL ONE (14:40)
[2017-06-04] MEDS ORDERED: Succinylcholine 200 mg/10 ml Inj IV ONE (14:40)
[2017-06-04] MEDS ORDERED: Sevoflurane - Inhalation Anesthetic Liq (250 ml) ONE (15:21)
[2017-06-04] MEDS ORDERED: Phenylephrine 10 mg/ml Inj ONE (16:26)
--- NOTE | 2017-06-04 16:36 | PN ---
PULMONARY PROGRESS NOTE DATE: 06/04/2017 REFERRING PHYSICIAN: Dr. Ferrara. SUBJECTIVE: The patient is sitting at the side of the bed, worrying about her ERCP and possible stent. No headache. No rhinitis. No vomiting. No leg pain or leg swelling. OBJECTIVE: GENERAL: No acute distress. VITAL SIGNS: Temperature is 98, heart rate is 95, respiratory rate is 20, blood pressure 147/90, pulse ox 96% on room air. HEENT: Moist mucous membranes. Crowded airway. Mallampati score is 4. NECK: Supple. No JVD. LUNGS: Fair airflow with few rhonchi. CARDIOPULMONARY: S1 and S2. ABDOMEN: Soft and nontender. No organomegaly. EXTREMITIES: No edema. NEUROLOGIC: Awake and alert. Follows simple commands. MEDICATIONS: She is on Aldactone 25 mg daily, Claritin 10 mg daily, Cymbalta 30 mg daily, IV fluids D5 normal saline 60 mL/hour, Dilaudid 7.5 mg q.4 hours p.r.n., DuoNeb q.6 hours, glipizide 10 mg daily, insulin coverage, Lasix 40 mg daily, Lipitor 10 mg daily, Lopid 600 mg twice a day, Lovenox 40 mg daily, Lyrica 75 mg daily, MiraLax 17 g daily, Nicotrol 10 mg q.6 hours, Protonix 40 mg daily, Seroquel 200 mg at bedtime, Singulair 10 mg daily, Xanax 0.5 mg daily, Zestril 10 mg daily, and Zofran p.r.n. basis. LABORATORY DATA: Shows hemoglobin 11.7, hematocrit 34.8, WBC 8.2, platelet count 259. INR 1.1, PTT is 27. blood sugar of 162. AST 153, ALT 108, alkaline phosphatase is 372. Total bilirubin 11.3, direct bilirubin is 10.2. IMPRESSION AND PLAN: Metastatic pancreatic cancer to liver and lungs with ductal obstruction, chronic obstructive lung disease, obstructive sleep apnea syndrome, hepatitis C. Pulmonary point of view doing well. Pulmonary status optimized for possible endoscopic retrograde cholangio-pancreatography and stent. There is a component of sleep apnea syndrome that needs to be cared for while sedated needs close cardiopulmonary monitoring. Had a long discussion with the patient about endoscopic retrograde cholangio-pancreatography, diagnosis, and possible results. She agrees with the treatment. Thank you and we will follow with you. Linnea Stephen MD
[2017-06-04] MEDS ORDERED: Sodium Chloride 0.9% 1,000 ML IV SCH (17:00)
--- NOTE | 2017-06-04 17:50 | CP.PCM.PN ---
Subjective - Date & Time of Evaluation Date of Evaluation: 06/04/17 Time of Evaluation: 14:00 - Subjective Subjective: still c/o epigastric and ruq pain Objective - Vital Signs/Intake and Output Vital Signs (last 24 hours): Temp Pulse Resp BP Pulse Ox 98.4 F 103 H 20 158/95 H 97 06/04/17 16:50 06/04/17 16:50 06/04/17 16:50 06/04/17 16:50 06/04/17 16:50 Intake and Output: 06/04/17 06/04/17 06:59 18:59 Intake Total 420 Balance 420 - Medications Medications: Current Medications Albuterol/Ipratropium (Duoneb 3 Mg/0.5 Mg (3 Ml) Ud) 3 ml IH [id number] [facility] Last Admin: 06/04/17 13:27 Dose: Not Given Alprazolam (Xanax) 0.5 mg PO DAILY [facility] PRN Reason: Protocol Last Admin: 06/04/17 09:44 Dose: 0.5 mg Atorvastatin Calcium (Lipitor) 10 mg PO DIN [facility] Last Admin: 06/02/17 16:10 Dose: 10 mg Duloxetine HCl (Cymbalta) 30 mg PO DAILY [facility] Last Admin: 06/04/17 09:43 Dose: 30 mg Enoxaparin Sodium (Lovenox) 40 mg SC DAILY [facility] PRN Reason: Protocol Last Admin: 06/04/17 09:44 Dose: Not Given Furosemide (Lasix) 40 mg PO DAILY [facility] Last Admin: 06/04/17 09:43 Dose: 40 mg Gemfibrozil (Lopid) 600 mg PO BID [facility] Last Admin: 06/04/17 09:43 Dose: 600 mg Glipizide (Glucotrol Xl) 10 mg PO DAILY [facility] Last Admin: 06/02/17 09:01 Dose: 10 mg Hydromorphone HCl (Dilaudid) 0.5 mg IVP Q4H PRN PRN Reason: Pain, moderate (4-7) Last Admin: 06/04/17 07:45 Dose: 0.5 mg Dextrose/Sodium Chloride (Dextrose 5%/0.45% Ns 1000 Ml) 1,000 mls @ 60 mls/hr IV .[id number] [facility] Last Admin: 06/04/17 09:44 Dose: 60 mls/hr Sodium Chloride (Sodium Chloride 0.9%) 1,000 mls @ 100 mls/hr IV .Q10H [facility] Insulin Human Regular (Humulin R Low) 0 units SC ACHS [facility] PRN Reason: Protocol Last Admin: 06/04/17 16:33 Dose: Not Given Lisinopril (Zestril) 10 mg PO DAILY [facility] Last Admin: 06/04/17 09:44 Dose: 10 mg Loratadine (Claritin) 10 mg PO DAILY [facility] Last Admin: 06/04/17 09:45 Dose: Not Given Montelukast Sodium (Singulair) 10 mg PO HS [facility] Last Admin: 06/03/17 21:19 Dose: 10 mg Non-Formulary Medication (Nicotine [Nicotrol]) 10 mg IH Q6 [facility] Last Admin: 06/04/17 11:31 Dose: Not Given Ondansetron HCl (Zofran Inj) 4 mg IVP Q6H PRN PRN Reason: Nausea/Vomiting Last Admin: 06/04/17 08:36 Dose: 4 mg Pantoprazole Sodium (Protonix Ec Tab) 40 mg PO 0600 [facility] Last Admin: 06/04/17 05:44 Dose: 40 mg Polyethylene Glycol (Miralax) 17 gm PO DAILY [facility] Last Admin: 06/04/17 10:27 Dose: Not Given Pregabalin (Lyrica) 75 mg PO DAILY [facility] Last Admin: 06/04/17 09:43 Dose: 75 mg Quetiapine Fumarate (Seroquel) 200 mg PO HS [facility] PRN Reason: Protocol Last Admin: 06/03/17 21:19 Dose: 200 mg Spironolactone (Aldactone) 25 mg PO DAILY [facility] Last Admin: 06/04/17 09:43 Dose: 25 mg - Labs Labs: 06/04/17 06:30 06/03/17 06:30 PT 12.0 Seconds (9.9-11.8) H 06/04/17 08:50 INR 1.11 (0.93-1.08) H 06/04/17 08:50 APTT 26.8 Seconds (23.7-30.8) 06/04/17 08:50 - Head Exam Head Exam: ATRAUMATIC, NORMOCEPHALIC - Eye Exam Eye Exam: EOMI, Scleral icterus - ENT Exam ENT Exam: Mucous Membranes Moist - Neck Exam Neck Exam: Full ROM. absent: Lymphadenopathy - Respiratory Exam Respiratory Exam: NORMAL BREATHING PATTERN. absent: Accessory Muscle Use, Rales , Rhonchi - Cardiovascular Exam Cardiovascular Exam: REGULAR RHYTHM, +S1, +S2 - GI/Abdominal Exam GI & Abdominal Exam: Soft, Tenderness - Extremities Exam Extremities Exam: absent: Calf Tenderness, Tenderness Assessment and Plan - Assessment and Plan (Free Text) Assessment: Obstructive Jaundice Metastatic adenocarcinoma sp EUS FNA Large peripancreatic,celiac and periportal adenopathy Pancreatic Mass Hepatitis C Elevated LFT Liver Mass Lung nodules DM type II COPD Fibromyalgia Constipation Plan: Scheduled for ERCP and stent palcement today discussed with patient and patient's son at length risk benefits and alternatives explained. Informed consent obtained Risks including bleeding, perforation ,pancreatitis and cannuation failure explained . Patient understood .
--- NOTE | 2017-06-04 18:16 | CP.PCM.PN ---
Subjective - Date & Time of Evaluation Date of Evaluation: 06/04/17 Time of Evaluation: 09:00 - Subjective Subjective: Subjective: S&E at bedside earlier today, still have abdominal pain but no increase in intensity. No N/V, fever or chills, s/p Relistor had BM early this am with relief, no reports of bleeding. Had MRCP reports pulmonary nodules, biliary dilation, hepatic masses and enlarged pericardial lymph nodes, report reviewed. Objective - Vital Signs/Intake and Output Vital Signs (last 24 hours): Temp Pulse Resp BP Pulse Ox 98.4 F 96 H 18 138/95 H 98 06/04/17 17:20 06/04/17 17:20 06/04/17 17:20 06/04/17 17:20 06/04/17 17:20 Intake and Output: 06/04/17 06/04/17 06:59 18:59 Intake Total 420 Balance 420 - Medications Medications: Current Medications Albuterol/Ipratropium (Duoneb 3 Mg/0.5 Mg (3 Ml) Ud) 3 ml IH [id number] [facility] Last Admin: 06/04/17 13:27 Dose: Not Given Alprazolam (Xanax) 0.5 mg PO DAILY [facility] PRN Reason: Protocol Last Admin: 06/04/17 09:44 Dose: 0.5 mg Atorvastatin Calcium (Lipitor) 10 mg PO DIN [facility] Last Admin: 06/02/17 16:10 Dose: 10 mg Duloxetine HCl (Cymbalta) 30 mg PO DAILY [facility] Last Admin: 06/04/17 09:43 Dose: 30 mg Enoxaparin Sodium (Lovenox) 40 mg SC DAILY [facility] PRN Reason: Protocol Last Admin: 06/04/17 09:44 Dose: Not Given Furosemide (Lasix) 40 mg PO DAILY [facility] Last Admin: 06/04/17 09:43 Dose: 40 mg Gemfibrozil (Lopid) 600 mg PO BID [facility] Last Admin: 06/04/17 09:43 Dose: 600 mg Glipizide (Glucotrol Xl) 10 mg PO DAILY [facility] Last Admin: 06/02/17 09:01 Dose: 10 mg Hydromorphone HCl (Dilaudid) 0.5 mg IVP Q4H PRN PRN Reason: Pain, moderate (4-7) Last Admin: 06/04/17 07:45 Dose: 0.5 mg Dextrose/Sodium Chloride (Dextrose 5%/0.45% Ns 1000 Ml) 1,000 mls @ 60 mls/hr IV .[id number] [facility] Last Admin: 06/04/17 09:44 Dose: 60 mls/hr Sodium Chloride (Sodium Chloride 0.9%) 1,000 mls @ 100 mls/hr IV .Q10H [facility] Insulin Human Regular (Humulin R Low) 0 units SC ACHS [facility] PRN Reason: Protocol Last Admin: 06/04/17 16:33 Dose: Not Given Lisinopril (Zestril) 10 mg PO DAILY [facility] Last Admin: 06/04/17 09:44 Dose: 10 mg Loratadine (Claritin) 10 mg PO DAILY [facility] Last Admin: 06/04/17 09:45 Dose: Not Given Montelukast Sodium (Singulair) 10 mg PO HS [facility] Last Admin: 06/03/17 21:19 Dose: 10 mg Non-Formulary Medication (Nicotine [Nicotrol]) 10 mg IH Q6 [facility] Last Admin: 06/04/17 17:31 Dose: Not Given Ondansetron HCl (Zofran Inj) 4 mg IVP Q6H PRN PRN Reason: Nausea/Vomiting Last Admin: 06/04/17 08:36 Dose: 4 mg Pantoprazole Sodium (Protonix Ec Tab) 40 mg PO 0600 [facility] Last Admin: 06/04/17 05:44 Dose: 40 mg Polyethylene Glycol (Miralax) 17 gm PO DAILY [facility] Last Admin: 06/04/17 10:27 Dose: Not Given Pregabalin (Lyrica) 75 mg PO DAILY [facility] Last Admin: 06/04/17 09:43 Dose: 75 mg Quetiapine Fumarate (Seroquel) 200 mg PO HS [facility] PRN Reason: Protocol Last Admin: 06/03/17 21:19 Dose: 200 mg Spironolactone (Aldactone) 25 mg PO DAILY [facility] Last Admin: 06/04/17 09:43 Dose: 25 mg - Labs Labs: 06/04/17 06:30 06/03/17 06:30 PT 12.0 Seconds (9.9-11.8) H 06/04/17 08:50 INR 1.11 (0.93-1.08) H 06/04/17 08:50 APTT 26.8 Seconds (23.7-30.8) 06/04/17 08:50 - Constitutional Appears: Well - Head Exam Head Exam: ATRAUMATIC, NORMAL INSPECTION, NORMOCEPHALIC - Eye Exam Eye Exam: EOMI, Normal appearance, PERRL Pupil Exam: NORMAL ACCOMODATION, PERRL - ENT Exam ENT Exam: Mucous Membranes Moist, Normal Exam - Neck Exam Neck Exam: Full ROM, Normal Inspection. absent: Lymphadenopathy - Respiratory Exam Respiratory Exam: Clear to Ausculation Bilateral, NORMAL BREATHING PATTERN - Cardiovascular Exam Cardiovascular Exam: REGULAR RHYTHM, +S1, +S2. absent: Murmur - GI/Abdominal Exam GI & Abdominal Exam: Soft, Tenderness, Normal Bowel Sounds - Rectal Exam Rectal Exam: NORMAL INSPECTION - Exam Exam: Circumcision, NORMAL INSPECTION External exam: NORMAL EXTERNAL EXAM Speculum exam: NORMAL SPECULUM EXAM Bimanual exam: NORMAL BIMANUAL EXAM - Extremities Exam Extremities Exam: Full ROM, Normal Capillary Refill, Normal Inspection. absent : Joint Swelling, Pedal Edema - Back Exam Back Exam: NORMAL INSPECTION - Neurological Exam Neurological Exam: Alert, Awake, CN II-XII Intact, Normal Gait, Oriented x3 - Psychiatric Exam Psychiatric exam: Normal Affect, Normal Mood - Skin Skin Exam: Dry, Intact, Normal Color, Warm Assessment and Plan (1) Hematuria Status: Acute (2) Jaundice Status: Acute (3) Abdominal pain Status: Acute (4) Benzodiazepine overdose Status: Acute (5) Diverticulitis Status: Acute (6) Dizziness Status: Acute (7) Gross hematuria Status: Acute (8) Liver lesion Status: Acute (9) Malignancies Status: Acute (10) Malignant tumor head pancreas Status: Acute (11) Overdose Status: Acute - Assessment and Plan (Free Text) Assessment: - Assessment and Plan Obstructive Jaundice Metastatic adenocarcinoma sp EUS FNA Large peripancreatic,celiac and periportal adenopathy Pancreatic Mass Hepatitis C Elevated LFT Liver Mass Lung nodules DM type II COPD Fibromyalgia Constipation Plan: Scheduled for ERCP and stent palcement today discussed with patient and patient's son at length risk benefits and alternatives explained. Informed consent obtained Risks including bleeding, perforation ,pancreatitis and cannuation failure explained . Patient understood .
[2017-06-05] MEDS: Albuterol-Ipratrop 3 mg / 0.5 (3 ml) UD IH SCH ×3 (01:16→14:18)
[2017-06-05] MEDS: Dextrose 5%/0.45% NS 1,000 ML IV SCH (02:00)
[2017-06-05 06:37] LABS: BASO # 0.01 K/mm3 (0.0-2.0); BASO % 0.1 % (0.0-3.0); EOS # 0.2 (0.0-0.7); EOS % 2.5 % (1.5-5.0); GRAN % 70.2 % (50.0-68.0); LYMPH # 1.6 (1.2-3.4); LYMPH % 19.8 % (22.0-35.0); MEAN CELL VOLUME 82.5 fL (80.0-105.0); MEAN CORPUSCULAR HEMOGLOBIN 27.6 pg (25.0-35.0); MEAN CORPUSCULAR HGB CONC 33.4 g/dl (31.0-37.0); MEAN PLATELET VOLUME 9.4 fl (7.0-11.0); MONO # 0.6 (0.1-0.6); MONO % 7.4 % (1.0-6.0); PLATELET COUNT 239 10^3/uL (120.0-450.0); RBC 3.99 10^6/uL (3.5-6.1); RED CELL DISTRIBUTION WIDTH 18.5 % (11.5-14.5)
[2017-06-05 06:47] LABS: ALB/GLOB RATIO 0.9 (1.1-1.8); ALBUMIN 3.6 g/dL (3.0-4.8); ALT/SGPT 109 U/L (7-56); AMYLASE 169 U/L (35-125); AST/SGOT 165 U/L (15-39); BILIRUBIN,DIRECT 10.9 mg/dL (0.0-0.4); BLOOD UREA NITROGEN 11 mg/dL (7-21); CALCIUM 9.3 mg/dL (8.4-10.5); GFR AFRICAN-AMERICAN > 60; GFR NON-AFRICAN AMERICAN > 60
[2017-06-05] MEDS: Pantoprazole 40 mg EC Tab PO SCH (06:48)
[2017-06-05] MEDS: Insulin Reg-LOW-Coverage SC SCH ×4 (07:50→21:50)
--- NOTE | 2017-06-05 08:42 | RAD ---
PROCEDURE: ERCP HISTORY: R/O/ STONES COMPARISON: None TECHNIQUE: Fluoroscopic support was provided by Radiology to assist the referring physician perform ERCP. FINDINGS: A single spot fluoroscopic image was submitted demonstrating an and endoscope at the apparent right upper quadrant abdomen apparently cannulating the likely the common bile duct. Please see operative report for further detail. IMPRESSION: As discussed above. 1 minutes 6 seconds fluoroscopic time utilized.
[2017-06-05] MEDS: HYDROmorphone 0.5 mg/0.5 ml ISec IVP PRN ×4 (09:07→21:48)
[2017-06-05] MEDS: POLYETHYLENE GLYCOL 3350 17 GM/Dose PACKET PO SCH (09:10)
[2017-06-05] MEDS: Enoxaparin 40 mg Syringe SC SCH (09:10)
[2017-06-05] MEDS: NICOTINE 10 MG IH SCH ×2 (13:07→17:19)
--- NOTE | 2017-06-05 21:55 | PN ---
PULMONARY PROGRESS NOTE DATE: 06/05/2017 REFERRING PHYSICIAN: Dr. Ferrara. SUBJECTIVE: The patient is lying in the bed, on and off having abdominal pain, acquiring pain medication. Attempted ERCP and stent placement which failed. Awaiting for percutaneous drainage of gallbladder. No shortness of breath. No chest pain. No leg pain or no leg swelling. PHYSICAL EXAMINATION VITAL SIGNS: Temperature 98, heart rate 81, respiratory rate is 18, blood pressure 155/99, and pulse ox 97% on room air. HEENT: Moist mucous membranes and carotid. Mallampati score is IV. NECK: Supple. No JVD. LUNGS: Fair airway with rhonchi. HEART: S1 and S2. ABDOMEN: Positive bowel sounds. Right upper quadrant tenderness. EXTREMITIES: There is no edema. NEUROLOGIC: Awake, alert, and follows simple commands. MEDICATIONS: She is on Aldactone 25 mg daily, Claritin 10 mg daily, Cymbalta 30 mg daily, Dilaudid 0.5 mg q. 6 hour p.r.n., DuoNeb q. 6 hour, glipizide 10 mg daily, insulin coverage, Lasix 40 mg daily, Lipitor 10 mg daily, Lopid 600 mg twice a day, Lovenox 40 mg daily, Lyrica 75 mg daily, Maalox is 17 g p.o. daily, Nicoderm patch 10 mg q. 6 hour, Protonix 40 mg daily, Seroquel 200 mg at bedtime, Singulair 10 mg daily, Xanax 0.5 mg daily, alternate Xanax 1 mg at bedtime, Lisinopril 10 mg daily, Zofran p.r.n. basis. LABORATORY DATA: Shows hemoglobin 11.0, hematocrit 32.9, WBC 8.0, platelet is 239. Chemistries show sodium 142, potassium 2.6, chloride 109, bicarbonate 24, BUN 13, creatinine 0.8, glucose 199, AST 165, ALT 344, albumin is 7.8. Hepatitis C antibody is reactive. IMPRESSION AND PLAN: Metastatic pancreatic cancer to liver and lungs with obstructing pancreatic and common bile duct. Obstructive lung disease, obstructive sleep apnea syndrome, attempted ERCP with stent placement was unsuccessful. Now has intervention radiology consult for possible percutaneous drainage of the gallbladder. Continue pain medication. Keep head 45 degree. Encouraged BiPAP use. Fall precautions. Oncology followup. Thank you and we will follow with you. Linnea Stephen MD
--- NOTE | 2017-06-06 01:52 | PN ---
DATE: SUBJECTIVE: The patient was seen and examined at the bedside, looks comfortable. No nausea, vomiting or diarrhea. No hematochezia. Still having abdominal pain, went for procedure on Wednesday. No fever, no chills. PHYSICAL EXAMINATION: VITAL SIGNS: Temperature is 98.3, pulse 81, blood pressure 155/99, respiratory rate 18. HEENT: Head normocephalic, atraumatic. Eyes: PERRLA. Extraocular movements intact. Conjunctivae clear. Nose patent. Mucous membrane moist. NECK: Supple. No carotid bruit. No JVD or thyromegaly. CHEST: Bilaterally symmetrical. HEART: S1 and S2 positive. LUNGS: Clear to auscultation. ABDOMEN: Soft. Tender in the right upper quadrant. Bowel sounds are present. EXTREMITIES: No edema, no cyanosis. NEUROLOGIC: The patient is awake and alert. Moving all four extremities. No focal deficit. MEDICATIONS: Spironolactone, Claritin, Cymbalta, Dilaudid, albuterol, glipizide, insulin, Lasix, atorvastatin, Lyrica, Lovenox, nicotine, Protonix, Seroquel, Zofran, Zestril and Xanax. LABORATORY DATA: White blood cell is 8.0, hemoglobin 11.0, hematocrit 32.9 and platelets 239. Sodium 142, potassium 3.9, BUN 11, creatinine 0.8, glucose 128. Total bilirubin 12, direct bilirubin 10.9. ASSESSMENT AND PLAN: Ms. Hortensia Love is a 66-year-old lady with hypokalemia, hyperglycemia, abnormal liver function test, who has pancreatitis, history of leukocytosis got better, anemia, proteinuria, urinary tract infection, bilirubinuria, hepatitis C is positive, metastatic pancreatic cancer to the liver and lungs with obstructing pancreatic and common bile duct, obstructive lung disease, obstructive sleep apnea syndrome. Dr. Merchant attempted ERCP with stent placement that was unsuccessful. Now has Interventional Radiology consult for possible percutaneous drainage of the gallbladder. Continue medications. The patient is advised to go for procedure. Encouraged BiPAP. Oncology is Dr. Navarrete . Gastrointestinal and deep venous thrombosis prophylaxis. Repeat labs. We will follow up. Georgina Ferrara MD [facility]
[2017-06-06] MEDS: Albuterol-Ipratrop 3 mg / 0.5 (3 ml) UD IH SCH ×4 (02:55→20:33)
[2017-06-06] MEDS: HYDROmorphone 0.5 mg/0.5 ml ISec IVP PRN ×2 (04:04→09:06)
[2017-06-06] MEDS ORDERED: HYDROmorphone 0.5 mg/0.5 ml ISec IVP STA (04:52)
[2017-06-06] MEDS: Pantoprazole 40 mg EC Tab PO SCH (05:02)
[2017-06-06] MEDS: NICOTINE 10 MG IH SCH ×4 (06:00→19:30)
[2017-06-06 06:25] LABS: ALB/GLOB RATIO 0.8 (1.1-1.8); ALBUMIN 3.7 g/dL (3.0-4.8); BILIRUBIN,DIRECT 10.9 mg/dL (0.0-0.4)
[2017-06-06] MEDS: Insulin Reg-LOW-Coverage SC SCH ×4 (07:41→21:46)
[2017-06-06] MEDS: Enoxaparin 40 mg Syringe SC SCH (09:07)
[2017-06-06] MEDS: POLYETHYLENE GLYCOL 3350 17 GM/Dose PACKET PO SCH (09:07)
[2017-06-06] MEDS: HYDROmorphone 1 mg/ml ISec IVP PRN ×3 (11:11→20:07)
--- NOTE | 2017-06-07 00:40 | PN ---
DATE: PULMONARY PROGRESS NOTE REFERRING PHYSICIAN: Dr. Lees. SUBJECTIVE: She is sitting at the side of the bed. Son is at bedside. Night was unremarkable. Continued to have abdominal pain. Oral pain medications. No nausea. No vomiting. Has abdominal pain. No dysuria. No leg pain or leg swelling. OBJECTIVE GENERAL: No acute distress. VITAL SIGNS: Temperature is 98, heart rate is 99, respiratory rate is 20, blood pressure 132/96, pulse is 94% on room air. HEENT: Moist mucous membranes. Crowded airway. NECK: Supple. No JVD. LUNGS: Fair airflow with rhonchi. HEART: S1 and S2. ABDOMEN: Soft, nontender, nondistended. EXTREMITIES: There is no edema. NEUROLOGICAL: Awake, alert. Follows simple commands. MEDICATIONS: She is on Aldactone 25 mg daily, Claritin 10 mg daily, Cymbalta 30 mg daily, Dilaudid 1 mg q. 4 hours p.r.n., DuoNeb q. 6 hours, glipizide 10 mg daily, insulin coverage, Lasix 40 mg daily, Lipitor 10 mg daily, Lopid 600 mg twice a day, Lovenox 40 mg daily, Lyrica 75 mg daily, MiraLax 17 g daily, Nicotrol 10 mg q. 6 hours, Protonix 40 mg daily, Seroquel 200 mg at bedtime, Singulair 10 mg daily, Xanax 0.5 mg daily and also Xanax 1 mg at bedtime, Zestril 10 mg daily, and Zofran p.r.n. basis. LABORATORY DATA: Reviewed. Noted blood sugar is 159, hepatitis C is reactive. IMPRESSION AND PLAN: Metastatic adenocarcinoma involving head of the pancreas, liver and lungs. Other issues are chronic obstructive lung disease; obstructive sleep apnea syndrome; hepatitis C positive, diabetes. Pathology report reviewed again. Still primary is unknown, according to immunostain, suggestive of may be origin is ovaries or uterus. So, decision was made to get MRI of the pelvis for metastatic workup. For now, continue pain medications. The patient will be seen by Dr. Loi Zamudio tomorrow for possible percutaneous catheter placement. We will follow with you. Linnea Stephen MD
[2017-06-07] MEDS: Albuterol-Ipratrop 3 mg / 0.5 (3 ml) UD IH SCH ×4 (01:01→19:54)
--- NOTE | 2017-06-07 02:22 | PN ---
DATE: 06/06/2017 SUBJECTIVE: The patient is a 66-year-old female. The patient is seen and examined at the bedside, sleepy, and arousable. According to her still having pain in the right upper quadrant of the abdomen. She was getting Dilaudid 0.5 q. 4 hours and changed to 1 mg q. 4 hours. GI is on the case. No nausea, vomiting, diarrhea. No hematuria or hematochezia. No swelling of the leg. No chest pain. No palpitation. No headache. No dizziness. PHYSICAL EXAMINATION: VITAL SIGNS: Temperature 97, pulse 89, blood pressure 113/96, respiratory rate 20. HEENT: Head is normocephalic and atraumatic. Eyes: PERRLA. Extraocular muscles are intact. Conjunctivae clear. Nose patent. Mucous membrane moist. NECK: Supple. No carotid bruit. No thyromegaly. CHEST: Bilaterally symmetrical. HEART: S1 and S2 positive. LUNGS: Clear to auscultation. ABDOMEN: Soft. Tender in the right upper quadrant. No organomegaly. EXTREMITIES: No edema or cyanosis. NEUROLOGIC: The patient is awake and alert. Moving all four extremities. No focal deficit. MEDICATIONS: Aldactone, Claritin, Cymbalta, Dilaudid, DuoNeb, glipizide, insulin, Lasix, Lipitor, and Glucotrol. LABORATORY DATA: White blood cell 8.0, hemoglobin 11.0, hematocrit 32.9 and platelet 239. Glucose 159. Total bilirubin 12, direct bilirubin 10. AST 147, ALT 107, and alkaline phosphatase 355. ASSESSMENT AND PLAN: Ms. Hortensia Love is a 66-year-old lady with proteinuria,urinary tract infection, history of leukocytosis, anemia, hepatitis C positive, has metastatic pancreatic cancer of liver and lungs with obstructive pancreatic and common bile duct, obstructive lung disease, obstructive sleep apnea syndrome. Dr. Merchant attempted ERCP with the stent placement that was unsuccessful. Interventional radiology had to do procedure, percutaneous drainage of the gallbladder. Continue pain medication. looking comfortable. Encouraged BiPAP. GI and DVT prophylaxis, and repeat labs. We will follow. Georgina Ferrara MD [facility] # [id number]
[2017-06-07] MEDS: HYDROmorphone 1 mg/ml ISec IVP PRN ×5 (02:53→22:14)
[2017-06-07] MEDS: Pantoprazole 40 mg EC Tab PO SCH (05:42)
[2017-06-07] MEDS: Insulin Reg-LOW-Coverage SC SCH ×4 (08:46→22:21)
[2017-06-07] MEDS ORDERED: Sodium Chloride 0.45% 1,000 ML IV SCH (09:00)
[2017-06-07] MEDS: POLYETHYLENE GLYCOL 3350 17 GM/Dose PACKET PO SCH (10:04)
[2017-06-07] MEDS: Enoxaparin 40 mg Syringe SC SCH (10:06)
[2017-06-07] MEDS: NICOTINE 10 MG IH SCH ×3 (11:57→17:36)
--- NOTE | 2017-06-07 13:40 | CP.PCM.PN ---
Subjective - Date & Time of Evaluation Date of Evaluation: 06/07/17 Time of Evaluation: 09:50 - Subjective Subjective: S&E at bedside, await to go for PTC drain. Does report same abdominal pain, no acute distress or overnight events. Objective - Vital Signs/Intake and Output Vital Signs (last 24 hours): Temp Pulse Resp BP Pulse Ox 98.7 F 89 18 141/92 H 95 06/07/17 08:07 06/07/17 08:07 06/07/17 08:07 06/07/17 10:05 06/07/17 08:07 Intake and Output: 06/07/17 06/07/17 06:59 18:59 Intake Total 840 240 Balance 840 240 - Medications Medications: Current Medications Albuterol/Ipratropium (Duoneb 3 Mg/0.5 Mg (3 Ml) Ud) 3 ml IH [id number] [facility] Last Admin: 06/07/17 07:25 Dose: 3 ml Alprazolam (Xanax) 0.5 mg PO DAILY [facility] PRN Reason: Protocol Last Admin: 06/07/17 10:04 Dose: 0.5 mg Alprazolam (Xanax) 1 mg PO HS [facility] PRN Reason: Protocol Last Admin: 06/06/17 21:39 Dose: 1 mg Atorvastatin Calcium (Lipitor) 10 mg PO DIN [facility] Last Admin: 06/02/17 16:10 Dose: 10 mg Duloxetine HCl (Cymbalta) 30 mg PO DAILY [facility] Last Admin: 06/07/17 10:05 Dose: 30 mg Enoxaparin Sodium (Lovenox) 40 mg SC DAILY [facility] PRN Reason: Protocol Last Admin: 06/07/17 10:06 Dose: Not Given Furosemide (Lasix) 40 mg PO DAILY [facility] Last Admin: 06/07/17 10:05 Dose: 40 mg Gemfibrozil (Lopid) 600 mg PO BID [facility] Last Admin: 06/07/17 10:05 Dose: 600 mg Glipizide (Glucotrol Xl) 10 mg PO DAILY [facility] Last Admin: 06/02/17 09:01 Dose: 10 mg Hydromorphone HCl (Dilaudid) 1 mg IVP Q4H PRN PRN Reason: Pain, severe (8-10) Last Admin: 06/07/17 08:52 Dose: 1 mg Sodium Chloride (Sodium Chloride 0.45%) 1,000 mls @ 80 mls/hr IV .[id number] [facility] Stop: 06/08/17 12:00 Insulin Human Regular (Humulin R Low) 0 units SC ACHS [facility] PRN Reason: Protocol Last Admin: 06/07/17 12:40 Dose: Not Given Lisinopril (Zestril) 10 mg PO DAILY [facility] Last Admin: 06/07/17 10:04 Dose: 10 mg Loratadine (Claritin) 10 mg PO DAILY [facility] Last Admin: 06/07/17 10:05 Dose: 10 mg Montelukast Sodium (Singulair) 10 mg PO HS [facility] Last Admin: 06/06/17 21:40 Dose: 10 mg Non-Formulary Medication (Nicotine [Nicotrol]) 10 mg IH Q6 [facility] Last Admin: 06/07/17 00:00 Dose: Not Given Ondansetron HCl (Zofran Inj) 4 mg IVP Q6H PRN PRN Reason: Nausea/Vomiting Last Admin: 06/07/17 08:53 Dose: 4 mg Pantoprazole Sodium (Protonix Ec Tab) 40 mg PO 0600 [facility] Last Admin: 06/07/17 05:42 Dose: 40 mg Polyethylene Glycol (Miralax) 17 gm PO DAILY [facility] Last Admin: 06/07/17 10:04 Dose: 17 gm Pregabalin (Lyrica) 75 mg PO DAILY [facility] Last Admin: 06/07/17 10:05 Dose: 75 mg Quetiapine Fumarate (Seroquel) 200 mg PO [facility] PRN Reason: Protocol Last Admin: 06/06/17 21:40 Dose: 200 mg Spironolactone (Aldactone) 25 mg PO DAILY [facility] Last Admin: 06/07/17 10:05 Dose: 25 mg - Labs Labs: 06/05/17 06:30 06/05/17 06:30 PT 12.0 Seconds (9.9-11.8) H 06/04/17 08:50 INR 1.11 (0.93-1.08) H 06/04/17 08:50 APTT 26.8 Seconds (23.7-30.8) 06/04/17 08:50 - Constitutional Appears: No Acute Distress - Eye Exam Eye Exam: Scleral icterus - ENT Exam ENT Exam: Mucous Membranes Moist - Respiratory Exam Respiratory Exam: NORMAL BREATHING PATTERN. absent: Respiratory Distress - Cardiovascular Exam Cardiovascular Exam: +S1, +S2 - GI/Abdominal Exam GI & Abdominal Exam: Soft, Tenderness, Normal Bowel Sounds. absent: Guarding, Rebound - Extremities Exam Extremities Exam: absent: Calf Tenderness, Pedal Edema - Neurological Exam Neurological Exam: Alert, Awake, Oriented x3 - Skin Skin Exam: Dry, Warm Assessment and Plan - Assessment and Plan (Free Text) Assessment: ASSESSMENT: Obstructive Jaundice Pancreatic Mass, dilated ducts, attempted ERCP Hepatitis C Elevated LFT Liver Mass Lung nodules DM type II COPD Fibromyalgia Constipation on miralax PLAN: for biliary drain today trend lft NPO for procedure pain mgt continue GI prophylaxsis DVT prophylaxsis cbc/cmp in am Seen and discussed with Dr. Merchant.
[2017-06-07 14:05] LABS: BASO # 0.01 K/mm3 (0.0-2.0); BASO % 0.1 % (0.0-3.0); EOS # 0.2 (0.0-0.7); EOS % 1.7 % (1.5-5.0); GRAN # 6.93 (1.4-6.5); GRAN % 73.7 % (50.0-68.0); HEMOGLOBIN 11.9 gm/dL (12.0-16.0); LYMPH # 1.7 (1.2-3.4); LYMPH % 18.2 % (22.0-35.0); MEAN CELL VOLUME 82.5 fL (80.0-105.0); MEAN CORPUSCULAR HEMOGLOBIN 27.8 pg (25.0-35.0); MEAN CORPUSCULAR HGB CONC 33.7 g/dl (31.0-37.0); MEAN PLATELET VOLUME 9.7 fl (7.0-11.0); MONO # 0.6 (0.1-0.6); MONO % 6.3 % (1.0-6.0); PLATELET COUNT 306 10^3/uL (120.0-450.0); RBC 4.28 10^6/uL (3.5-6.1); RED CELL DISTRIBUTION WIDTH 18.8 % (11.5-14.5); WHITE BLOOD COUNT 9.4 10^3/ul (4.5-11.0)
[2017-06-07 14:15] LABS: INR 1.11 (0.93-1.08); PARTIAL THROMBOPLASTIN TIME 25.7 Seconds (23.7-30.8)
[2017-06-07 14:17] LABS: ALB/GLOB RATIO 0.9 (1.1-1.8); ALBUMIN 4.1 g/dL (3.0-4.8); ALT/SGPT 106 U/L (7-56); AST/SGOT 141 U/L (15-39); BLOOD UREA NITROGEN 10 mg/dL (7-21); CALCIUM 9.9 mg/dL (8.4-10.5); GFR AFRICAN-AMERICAN > 60; GFR NON-AFRICAN AMERICAN > 60
[2017-06-07] MEDS ORDERED: Midazolam 2 MG/2 ML VIAL ONE ×3 (14:29→16:01)
[2017-06-07] MEDS ORDERED: Lidocaine 2% Inj (20ml) ONE (14:29)
[2017-06-07] MEDS ORDERED: Iodixanol 320 MG/ML 100 ML BOTTLE IV ONE (14:30)
--- NOTE | 2017-06-07 19:34 | VASCULAR ---
PROCEDURE: 1. Transhepatic cholangiogram 2. Internal external biliary drainage catheter placement HISTORY: Metastatic adenocarcinoma. Biliary obstruction with rising bilirubin. Failed ERCP. Needs biliary drainage. PHYSICIAN(S): Loi Zamudio MD. TECHNIQUE: The relative risks and indications of the procedure were explained to the patient and consent obtained. The patient was placed supine on the arteriogram table in the right abdomen and flank prepped and draped in usual sterile fashion. Conscious sedation monitoring were provided throughout the procedure by a nurse. A right intercostal approach in the mid axillary line was selected. 1 percent xylocaine was used to anesthetize the skin and soft tissues. Approximately 5 passes with a 21 gauge needle were performed enter the dilated biliary system. Contrast was injected opacification of the dilated intrahepatic biliary system obtained. A 2nd puncture was performed the mid axillary line to enter a posterior bile duct in the right lobe of the liver. 0.018 guidewire was advanced centrally. The Accustick system was advanced centrally. Exchange is made for glidewire and 5 Cam[place]onian catheter. The malignant obstruction in the distal CBD was crossed rather easily with the glidewire and catheter. Exchange is made for 0.035 Amplatzer port wire. Sequential dilatation was performed with subsequent placement of 12 [place]onian internal/external biliary drain in the duodenum. The catheter was flushed and secured. The sideholes were checked. The patient tolerated the procedure well. FINDINGS: There is a malignant 6 cm obstruction of the distal CBD. No contrast enters the duodenum. Successful placement of a 12 Cam[place]onian internal/external biliary drain from a right-sided approach. IMPRESSION: 1.Malignant 6 cm obstruction of the distal CBD. 2. Successful placement of a 12 Cam[place]onian internal/external biliary drain from a right-sided approach. The bile ducts will be decompressed and then an internal biliary stent placed if possible
--- NOTE | 2017-06-07 23:06 | PN ---
DATE: 06/07/2017 PULMONARY PROGRESS NOTE REFERRING PHYSICIAN: Dr. Ferrara. SUBJECTIVE: She is examined and seen in postanesthesia room, arousable, feels okay, mild discomfort at catheter site. No headache. No rhinitis. No nausea, no vomiting. No diarrhea. No leg pain or leg swelling. PHYSICAL EXAMINATION: GENERAL: In no acute distress. VITAL SIGNS: Temperature is 98.7, heart rate is 89, respiratory rate is 18, blood pressure 135/92, pulse ox 98% on 2 liters nasal cannula. HEENT: Moist mucous membrane. Crowded airway. Mallampati score is 4. NECK: Supple. No JVD. LUNGS: Fair airflow with rhonchi. HEART: S1 and S2.. ABDOMEN: Soft, nontender. No organomegaly. Has a right cholecystostomy tube with bile drain in the bag. EXTREMITIES: There is no edema. NEUROLOGIC: arousable, follows simple commands. LABORATORY DATA: Hemoglobin 11.9, hematocrit 35.3, WBC 9.4, platelet is 306. INR 1.1, PTT is 26. Sodium 140, potassium 3.7, chloride 102, bicarbonate 25, BUN 10, creatinine 0.8, glucose is 182, calcium 9.9, total bili 13.1, ALT 106, AST 141, alk phos is 386, albumin is 4.1. MEDICATIONS: She is on Aldactone 25 mg daily, Claritin 10 mg daily, Cymbalta 30 mg daily, Dilaudid 1 mg q. 4 hours p.r.n., DuoNeb q. 6 hours, Glucotrol XL 10 mg daily, insulin coverage, Lasix 40 mg daily, Lipitor 10 mg daily, Markus 600 mg twice a day, Lovenox 40 mg daily, Lyrica 75 mg daily, MiraLax 17 g p.o. daily, Nicotrol 10 mg q. 6 hours, Protonix 40 mg daily, Seroquel 20 mg at bedtime, Singulair 10 mg daily, IV fluid half normal saline 100 mL per hour, Xanax 0.5 mg daily and also Xanax 1 mg at bedtime, Zestril 10 mg daily, and Zofran p.r.n. basis. IMPRESSION AND PLAN: Adenocarcinoma which is a metastatic disease involving head of the pancreas with compression on ductal system with common bile duct obstruction, metastatic disease to liver and lungs. Other issues are chronic lung disease, sleep apnea syndrome, hypertension, hepatitis C, diabetes, failed ERCP and stent, status post cholecystotomy tube placement with good drainage. Still has no primary site of metastatic disease. MRI of the pelvis has been ordered which is still pending. Being followed by oncology. Pulmonary point of view, keep head elevated at 45 degrees, bronchodilator, sleep apnea precautions. Follow up labs in the morning. Thank you, and we will follow with you. Linnea Stephen MD
--- NOTE | 2017-06-07 23:35 | CP.PCM.PN ---
Subjective - Date & Time of Evaluation Date of Evaluation: 06/07/17 Time of Evaluation: 05:45 - Subjective Subjective: This patient was seen and evaluated usually is. This is an addendum to review progress report dictated by Amelia Wright APN. Metastatic adenocarcinoma of unknown primary. Pancreatic/peripancreatic lesion adenopathy abdomen soft with mild tenderness on deep palpation in the epigastric area. Obstructive jaundice unable to do ERCP selective cannulation of the common bile duct. Patient's CA 199 is near normal .Discussed with the doctors Patient today her scheduled for PTC by Dr. Zamudio Objective - Vital Signs/Intake and Output Vital Signs (last 24 hours): Temp Pulse Resp BP Pulse Ox 98.7 F 89 16 133/92 H 98 06/07/17 17:05 06/07/17 17:05 06/07/17 17:05 06/07/17 17:05 06/07/17 17:05 Intake and Output: 06/07/17 06/08/17 18:59 06:59 Intake Total 240 Balance 240 - Medications Medications: Current Medications Albuterol/Ipratropium (Duoneb 3 Mg/0.5 Mg (3 Ml) Ud) 3 ml IH [id number] [facility] Last Admin: 06/07/17 19:54 Dose: Not Given Alprazolam (Xanax) 0.5 mg PO DAILY [facility] PRN Reason: Protocol Last Admin: 06/07/17 10:04 Dose: 0.5 mg Alprazolam (Xanax) 1 mg PO HS [facility] PRN Reason: Protocol Last Admin: 06/07/17 22:16 Dose: 1 mg Atorvastatin Calcium (Lipitor) 10 mg PO DIN [facility] Last Admin: 06/02/17 16:10 Dose: 10 mg Duloxetine HCl (Cymbalta) 30 mg PO DAILY [facility] Last Admin: 06/07/17 10:05 Dose: 30 mg Enoxaparin Sodium (Lovenox) 40 mg SC DAILY [facility] PRN Reason: Protocol Last Admin: 06/07/17 10:06 Dose: Not Given Furosemide (Lasix) 40 mg PO DAILY [facility] Last Admin: 06/07/17 10:05 Dose: 40 mg Gemfibrozil (Lopid) 600 mg PO BID [facility] Last Admin: 06/07/17 18:11 Dose: Not Given Glipizide (Glucotrol Xl) 10 mg PO DAILY [facility] Last Admin: 06/02/17 09:01 Dose: 10 mg Hydromorphone HCl (Dilaudid) 1 mg IVP Q4H PRN PRN Reason: Pain, severe (8-10) Last Admin: 06/07/17 22:14 Dose: 1 mg Sodium Chloride (Sodium Chloride 0.45%) 1,000 mls @ 100 mls/hr IV .Q10H [facility] Stop: 06/08/17 12:00 Insulin Human Regular (Humulin R Low) 0 units SC ACHS [facility] PRN Reason: Protocol Last Admin: 06/07/17 22:21 Dose: Not Given Lisinopril (Zestril) 10 mg PO DAILY [facility] Last Admin: 06/07/17 10:04 Dose: 10 mg Loratadine (Claritin) 10 mg PO DAILY [facility] Last Admin: 06/07/17 10:05 Dose: 10 mg Montelukast Sodium (Singulair) 10 mg PO HS [facility] Last Admin: 06/07/17 22:16 Dose: 10 mg Non-Formulary Medication (Nicotine [Nicotrol]) 10 mg IH Q6 [facility] Last Admin: 06/07/17 17:36 Dose: Not Given Ondansetron HCl (Zofran Inj) 4 mg IVP Q6H [facility]N PRN Reason: Nausea/Vomiting Last Admin: 06/07/17 22:51 Dose: 4 mg Pantoprazole Sodium (Protonix Ec Tab) 40 mg PO 0600 [facility] Last Admin: 06/07/17 05:42 Dose: 40 mg Polyethylene Glycol (Miralax) 17 gm PO DAILY [facility] Last Admin: 06/07/17 10:04 Dose: 17 gm Pregabalin (Lyrica) 75 mg PO DAILY [facility] Last Admin: 06/07/17 10:05 Dose: 75 mg Quetiapine Fumarate (Seroquel) 200 mg PO HS [facility] PRN Reason: Protocol Last Admin: 06/07/17 22:16 Dose: 200 mg Spironolactone (Aldactone) 25 mg PO DAILY [facility] Last Admin: 06/07/17 10:05 Dose: 25 mg - Labs Labs: 06/07/17 13:50 06/07/17 13:50 PT 12.0 Seconds (9.9-11.8) H 06/07/17 13:50 INR 1.11 (0.93-1.08) H 06/07/17 13:50 APTT 25.7 Seconds (23.7-30.8) 06/07/17 13:50
--- NOTE | 2017-06-07 23:39 | CP.PCM.PN ---
Subjective - Date & Time of Evaluation Date of Evaluation: 06/07/17 Time of Evaluation: 06:30 - Subjective Subjective: S&E at bedside, went for PTC drain. Does report same abdominal pain, no acute distress or overnight events.have dressing on the liver area , no n,v,d Objective - Vital Signs/Intake and Output Vital Signs (last 24 hours): Temp Pulse Resp BP Pulse Ox 98.7 F 89 16 133/92 H 98 06/07/17 17:05 06/07/17 17:05 06/07/17 17:05 06/07/17 17:05 06/07/17 17:05 Intake and Output: 06/07/17 06/08/17 18:59 06:59 Intake Total 240 Balance 240 - Medications Medications: Current Medications Albuterol/Ipratropium (Duoneb 3 Mg/0.5 Mg (3 Ml) Ud) 3 ml IH [id number] [facility] Last Admin: 06/07/17 19:54 Dose: Not Given Alprazolam (Xanax) 0.5 mg PO DAILY [facility] PRN Reason: Protocol Last Admin: 06/07/17 10:04 Dose: 0.5 mg Alprazolam (Xanax) 1 mg PO HS [facility] PRN Reason: Protocol Last Admin: 06/07/17 22:16 Dose: 1 mg Atorvastatin Calcium (Lipitor) 10 mg PO DIN [facility] Last Admin: 06/02/17 16:10 Dose: 10 mg Duloxetine HCl (Cymbalta) 30 mg PO DAILY [facility] Last Admin: 06/07/17 10:05 Dose: 30 mg Enoxaparin Sodium (Lovenox) 40 mg SC DAILY [facility] PRN Reason: Protocol Last Admin: 06/07/17 10:06 Dose: Not Given Furosemide (Lasix) 40 mg PO DAILY [facility] Last Admin: 06/07/17 10:05 Dose: 40 mg Gemfibrozil (Lopid) 600 mg PO BID [facility] Last Admin: 06/07/17 18:11 Dose: Not Given Glipizide (Glucotrol Xl) 10 mg PO DAILY [facility] Last Admin: 06/02/17 09:01 Dose: 10 mg Hydromorphone HCl (Dilaudid) 1 mg IVP Q4H PRN PRN Reason: Pain, severe (8-10) Last Admin: 06/07/17 22:14 Dose: 1 mg Sodium Chloride (Sodium Chloride 0.45%) 1,000 mls @ 100 mls/hr IV .Q10H [facility] Stop: 06/08/17 12:00 Insulin Human Regular (Humulin R Low) 0 units SC ACHS [facility] PRN Reason: Protocol Last Admin: 06/07/17 22:21 Dose: Not Given Lisinopril (Zestril) 10 mg PO DAILY [facility] Last Admin: 06/07/17 10:04 Dose: 10 mg Loratadine (Claritin) 10 mg PO DAILY [facility] Last Admin: 06/07/17 10:05 Dose: 10 mg Montelukast Sodium (Singulair) 10 mg PO HS [facility] Last Admin: 06/07/17 22:16 Dose: 10 mg Non-Formulary Medication (Nicotine [Nicotrol]) 10 mg IH Q6 [facility] Last Admin: 06/07/17 17:36 Dose: Not Given Ondansetron HCl (Zofran Inj) 4 mg IVP Q6H PRN PRN Reason: Nausea/Vomiting Last Admin: 06/07/17 22:51 Dose: 4 mg Pantoprazole Sodium (Protonix Ec Tab) 40 mg PO 0600 [facility] Last Admin: 06/07/17 05:42 Dose: 40 mg Polyethylene Glycol (Miralax) 17 gm PO DAILY [facility] Last Admin: 06/07/17 10:04 Dose: 17 gm Pregabalin (Lyrica) 75 mg PO DAILY [facility] Last Admin: 06/07/17 10:05 Dose: 75 mg Quetiapine Fumarate (Seroquel) 200 mg PO [facility] PRN Reason: Protocol Last Admin: 06/07/17 22:16 Dose: 200 mg Spironolactone (Aldactone) 25 mg PO DAILY [facility] Last Admin: 06/07/17 10:05 Dose: 25 mg - Labs Labs: 06/07/17 13:50 06/07/17 13:50 PT 12.0 Seconds (9.9-11.8) H 06/07/17 13:50 INR 1.11 (0.93-1.08) H 06/07/17 13:50 APTT 25.7 Seconds (23.7-30.8) 06/07/17 13:50 - Constitutional Appears: Well - Head Exam Head Exam: ATRAUMATIC, NORMAL INSPECTION, NORMOCEPHALIC - Eye Exam Eye Exam: EOMI, Normal appearance, PERRL Pupil Exam: NORMAL ACCOMODATION, PERRL - ENT Exam ENT Exam: Mucous Membranes Moist, Normal Exam - Neck Exam Neck Exam: Full ROM, Normal Inspection. absent: Lymphadenopathy - Respiratory Exam Respiratory Exam: Clear to Ausculation Bilateral, NORMAL BREATHING PATTERN - Cardiovascular Exam Cardiovascular Exam: REGULAR RHYTHM, +S1, +S2. absent: Murmur - GI/Abdominal Exam GI & Abdominal Exam: Soft, Normal Bowel Sounds. absent: Tenderness Additional comments: abdomen tender , had dressing - Rectal Exam Rectal Exam: NORMAL INSPECTION - Exam Exam: Circumcision, NORMAL INSPECTION External exam: NORMAL EXTERNAL EXAM Speculum exam: NORMAL SPECULUM EXAM Bimanual exam: NORMAL BIMANUAL EXAM - Extremities Exam Extremities Exam: Full ROM, Normal Capillary Refill, Normal Inspection. absent : Joint Swelling, Pedal Edema - Back Exam Back Exam: NORMAL INSPECTION - Neurological Exam Neurological Exam: Alert, Awake, CN II-XII Intact, Normal Gait, Oriented x3 - Psychiatric Exam Psychiatric exam: Normal Affect, Normal Mood - Skin Skin Exam: Dry, Intact, Normal Color, Warm Assessment and Plan (1) Hematuria Status: Acute (2) Jaundice Status: Acute (3) Abdominal pain Status: Acute (4) Benzodiazepine overdose Status: Acute (5) Diverticulitis Status: Acute (6) Dizziness Status: Acute (7) Gross hematuria Status: Acute (8) Liver lesion Status: Acute (9) Malignancies Status: Acute (10) Malignant tumor head pancreas Status: Acute (11) Overdose Status: Acute - Assessment and Plan (Free Text) Assessment: Assessment: ASSESSMENT: Obstructive Jaundice Pancreatic Mass, dilated ducts, attempted ERCP Hepatitis C Elevated LFT Liver Mass Lung nodules DM type II COPD Fibromyalgia Constipation on miralax PLAN: biliary drain done today , both internal and external trend lft NPO for procedure pain mgt continue GI prophylaxsis DVT prophylaxsis cbc/cmp in am
[2017-06-08] MEDS: Albuterol-Ipratrop 3 mg / 0.5 (3 ml) UD IH SCH ×4 (01:37→19:26)
[2017-06-08] MEDS: NICOTINE 10 MG IH SCH (02:27)
[2017-06-08] MEDS: HYDROmorphone 1 mg/ml ISec IVP PRN ×5 (03:13→22:24)
[2017-06-08] MEDS: Pantoprazole 40 mg EC Tab PO SCH (05:53)
[2017-06-08] MEDS: Sodium Chloride 0.45% 1,000 ML IV SCH ×2 (05:54→08:19)
[2017-06-08 07:10] LABS: BASO # 0.01 K/mm3 (0.0-2.0); BASO % 0.1 % (0.0-3.0); EOS # 0.1 (0.0-0.7); EOS % 0.9 % (1.5-5.0); GRAN # 8.02 (1.4-6.5); GRAN % 77.4 % (50.0-68.0); HEMOGLOBIN 11.5 gm/dL (12.0-16.0); LYMPH # 1.5 (1.2-3.4); LYMPH % 14.3 % (22.0-35.0); MEAN CELL VOLUME 82.1 fL (80.0-105.0); MEAN CORPUSCULAR HEMOGLOBIN 27.4 pg (25.0-35.0); MEAN CORPUSCULAR HGB CONC 33.4 g/dl (31.0-37.0); MONO # 0.8 (0.1-0.6); MONO % 7.3 % (1.0-6.0); PLATELET COUNT 292 10^3/uL (120.0-450.0); RBC 4.19 10^6/uL (3.5-6.1); RED CELL DISTRIBUTION WIDTH 18.7 % (11.5-14.5); WHITE BLOOD COUNT 10.4 10^3/ul (4.5-11.0)
[2017-06-08 07:39] LABS: ALB/GLOB RATIO 0.9 (1.1-1.8); ALBUMIN 3.8 g/dL (3.0-4.8); ALT/SGPT 103 U/L (7-56); AST/SGOT 169 U/L (15-39); BILIRUBIN,DIRECT 8.5 mg/dL (0.0-0.4); BLOOD UREA NITROGEN 9 mg/dL (7-21); CALCIUM 9.6 mg/dL (8.4-10.5); GFR AFRICAN-AMERICAN > 60; GFR NON-AFRICAN AMERICAN > 60
[2017-06-08] MEDS: POLYETHYLENE GLYCOL 3350 17 GM/Dose PACKET PO SCH (10:38)
[2017-06-08] MEDS: Enoxaparin 40 mg Syringe SC SCH (10:38)
[2017-06-08] MEDS: Insulin Reg-LOW-Coverage SC SCH ×4 (12:05→21:38)
--- NOTE | 2017-06-08 13:21 | CP.PCM.PN ---
Subjective - Date & Time of Evaluation Date of Evaluation: 06/08/17 Time of Evaluation: 10:10 - Subjective Subjective: S&E at bedside, s/p biliary drain, c/o same abdominal pain, no N/V, denies fever or chills. No acute distress. No c/o diarrhea or overt GI bleeding. Objective - Vital Signs/Intake and Output Vital Signs (last 24 hours): Temp Pulse Resp BP Pulse Ox 98.3 F 91 H 19 140/90 95 06/08/17 06:00 06/08/17 06:00 06/08/17 06:00 06/08/17 10:38 06/08/17 06:00 Intake and Output: 06/08/17 06/08/17 06:59 18:59 Intake Total 1200 240 Output Total 425 Balance 775 240 - Medications Medications: Current Medications Albuterol/Ipratropium (Duoneb 3 Mg/0.5 Mg (3 Ml) Ud) 3 ml IH [id number] [facility] Last Admin: 06/08/17 13:02 Dose: Not Given Alprazolam (Xanax) 0.5 mg PO DAILY [facility] PRN Reason: Protocol Last Admin: 06/08/17 10:38 Dose: 0.5 mg Alprazolam (Xanax) 1 mg PO HS [facility] PRN Reason: Protocol Last Admin: 06/07/17 22:16 Dose: 1 mg Atorvastatin Calcium (Lipitor) 10 mg PO DIN [facility] Last Admin: 06/02/17 16:10 Dose: 10 mg Duloxetine HCl (Cymbalta) 30 mg PO DAILY [facility] Last Admin: 06/08/17 10:37 Dose: 30 mg Enoxaparin Sodium (Lovenox) 40 mg SC DAILY [facility] PRN Reason: Protocol Last Admin: 06/08/17 10:38 Dose: 40 mg Furosemide (Lasix) 40 mg PO DAILY [facility] Last Admin: 06/08/17 10:37 Dose: 40 mg Gemfibrozil (Lopid) 600 mg PO BID [facility] Last Admin: 06/08/17 10:38 Dose: 600 mg Glipizide (Glucotrol Xl) 10 mg PO DAILY [facility] Last Admin: 06/02/17 09:01 Dose: 10 mg Hydromorphone HCl (Dilaudid) 1 mg IVP Q4H PRN PRN Reason: Pain, severe (8-10) Last Admin: 06/08/17 12:17 Dose: 1 mg Insulin Human Regular (Humulin R Low) 0 units SC [facility] PRN Reason: Protocol Last Admin: 06/08/17 12:11 Dose: 1 units Lisinopril (Zestril) 10 mg PO DAILY [facility] Last Admin: 06/08/17 10:38 Dose: 10 mg Loratadine (Claritin) 10 mg PO DAILY [facility] Last Admin: 06/08/17 10:38 Dose: 10 mg Montelukast Sodium (Singulair) 10 mg PO HS [facility] Last Admin: 06/07/17 22:16 Dose: 10 mg Ondansetron HCl (Zofran Inj) 4 mg IVP Q6H PRN PRN Reason: Nausea/Vomiting Last Admin: 06/08/17 12:18 Dose: 4 mg Pantoprazole Sodium (Protonix Ec Tab) 40 mg PO 0600 [facility] Last Admin: 06/08/17 05:53 Dose: 40 mg Polyethylene Glycol (Miralax) 17 gm PO DAILY [facility] Last Admin: 06/08/17 10:38 Dose: 17 gm Pregabalin (Lyrica) 75 mg PO DAILY [facility] Last Admin: 06/08/17 10:37 Dose: 75 mg Quetiapine Fumarate (Seroquel) 200 mg PO [facility] PRN Reason: Protocol Last Admin: 06/07/17 22:16 Dose: 200 mg Spironolactone (Aldactone) 25 mg PO DAILY [facility] Last Admin: 06/08/17 10:38 Dose: 25 mg - Labs Labs: 06/08/17 06:30 06/08/17 06:30 PT 12.0 Seconds (9.9-11.8) H 06/07/17 13:50 INR 1.11 (0.93-1.08) H 06/07/17 13:50 APTT 25.7 Seconds (23.7-30.8) 06/07/17 13:50 - Constitutional Appears: No Acute Distress - Eye Exam Eye Exam: Scleral icterus (improving) - ENT Exam ENT Exam: Mucous Membranes Dry - Neck Exam Neck Exam: Normal Inspection - Respiratory Exam Respiratory Exam: NORMAL BREATHING PATTERN. absent: Respiratory Distress - Cardiovascular Exam Cardiovascular Exam: +S1, +S2 - GI/Abdominal Exam GI & Abdominal Exam: Soft, Tenderness, Normal Bowel Sounds. absent: Guarding, Rebound Additional comments: RUQ biliary drain, in place, drain dark bilious fluid 425 cc - Extremities Exam Extremities Exam: Normal Capillary Refill. absent: Calf Tenderness, Pedal Edema - Neurological Exam Neurological Exam: Alert, Awake, Oriented x3 Assessment and Plan - Assessment and Plan (Free Text) Assessment: ASSESSMENT: Obstructive Jaundice Pancreatic Mass, dilated ducts, attempted ERCP, PTC drain Hepatitis C Elevated LFT Liver Mass Lung nodules DM type II COPD Fibromyalgia Constipation on miralax PLAN: encourage liquids add ENSURE Clear trend lft pain mgt continue GI prophylaxsis DVT prophylaxsis Seen and discussed w/ Dr. Merchant.
--- NOTE | 2017-06-08 20:25 | PN ---
DATE: 06/08/2017. PULMONARY PROGRESS NOTE REFERRING PHYSICIAN: Dr. Ferrara. SUBJECTIVE: She is sitting side of the bed. She is much better, decreased abdominal pain, no nausea, no vomiting, no dysuria, no leg pain or leg swelling, draining large amount of bile in the drainage bag. OBJECTIVE GENERAL: No acute distress. VITAL SIGNS: Temperature is 98, heart rate 94, respiratory rate is 20, blood pressure 121/78, pulse ox 98% on room air. HEENT: Moist mucous membrane. Crowded airway. Mallampati score is 4. NECK: Supple. No JVD. LUNGS: Fair airflow with rhonchi. HEART: S1 and S2. ABDOMEN: Soft, mild tenderness in the epigastric area. Percutaneous cholecystostomy catheter draining well. EXTREMITIES: There is no edema. NEUROLOGICAL: Awake, alert, follow simple commands. MEDICATIONS: She is on Aldactone 25 mg daily, Claritin 10 mg daily, Cymbalta 30 mg daily, Dilaudid 1 mg q. 4 hours p.r.n., DuoNeb q. 6 hours, glipizide 10 mg daily, insulin coverage, Lasix 40 mg daily, Lipitor 10 mg daily, Markus 600 mg twice a day, Lovenox 40 mg subcutaneous daily, Lyrica 75 mg daily, MiraLax 17 g daily, Protonix 40 mg daily, Seroquel 200 mg at bedtime, Singulair 10 mg daily, Xanax 0.5 mg daily, Xanax 1 mg at bedtime, Zestril 10 mg daily, Zofran p.r.n. basis. LABORATORY DATA: Shows hemoglobin 11.5, hematocrit 34.4, WBC 10.4, platelet count 292. Sodium 139, potassium 3.6, chloride 102, bicarbonate 25, BUN 9, creatinine 0.7, glucose 132, calcium 9.6. Total bilirubin 9.6, direct bilirubin 8.5. AST 169, ALT 103. Alk phos is 358, albumin 3.8. IMPRESSION AND PLAN: Adenocarcinoma, metastasis to the head of the pancreas, liver, lungs, primary still unknown. Workup still in progress. Has a ductal obstruction requiring percutaneous drainage, chronic obstructive lung disease, sleep apnea syndrome, hypertension, diabetes. Pulmonary point of view doing okay. Continue bronchodilator, keep head 45 degree, gastric and deep vein thrombosis prophylaxis, fall precaution, oncology followup, workup to rule out [employer] malignancy is in progress. Followup labs in the morning. Thank you and we will follow with you. Linnea Stephen MD
--- NOTE | 2017-06-08 20:32 | CP.PCM.PN ---
Subjective - Date & Time of Evaluation Date of Evaluation: 06/08/17 Time of Evaluation: 06:00 - Subjective Subjective: S&E at bedside, s/p biliary drain, c/o same abdominal pain, no N/V, denies fever or chills. No acute distress. No c/o diarrhea or overt GI bleeding.drain is working very well , , yellow discolorations getting better Objective - Vital Signs/Intake and Output Vital Signs (last 24 hours): Temp Pulse Resp BP Pulse Ox 98.4 F 94 H 20 121/78 98 06/08/17 16:30 06/08/17 16:30 06/08/17 16:30 06/08/17 16:30 06/08/17 16:30 Intake and Output: 06/08/17 06/09/17 18:59 06:59 Intake Total 240 Output Total 310 Balance -70 - Medications Medications: Current Medications Albuterol/Ipratropium (Duoneb 3 Mg/0.5 Mg (3 Ml) Ud) 3 ml IH [id number] [facility] Last Admin: 06/08/17 19:26 Dose: Not Given Alprazolam (Xanax) 0.5 mg PO DAILY [facility] PRN Reason: Protocol Last Admin: 06/08/17 10:38 Dose: 0.5 mg Alprazolam (Xanax) 1 mg PO HS [facility] PRN Reason: Protocol Last Admin: 06/07/17 22:16 Dose: 1 mg Atorvastatin Calcium (Lipitor) 10 mg PO DIN [facility] Last Admin: 06/02/17 16:10 Dose: 10 mg Duloxetine HCl (Cymbalta) 30 mg PO DAILY [facility] Last Admin: 06/08/17 10:37 Dose: 30 mg Enoxaparin Sodium (Lovenox) 40 mg SC DAILY [facility] PRN Reason: Protocol Last Admin: 06/08/17 10:38 Dose: 40 mg Furosemide (Lasix) 40 mg PO DAILY [facility] Last Admin: 06/08/17 10:37 Dose: 40 mg Gemfibrozil (Lopid) 600 mg PO BID [facility] Last Admin: 06/08/17 17:02 Dose: 600 mg Glipizide (Glucotrol Xl) 10 mg PO DAILY [facility] Last Admin: 06/02/17 09:01 Dose: 10 mg Hydromorphone HCl (Dilaudid) 1 mg IVP Q4H PRN PRN Reason: Pain, severe (8-10) Last Admin: 06/08/17 17:02 Dose: 1 mg Insulin Human Regular (Humulin R Low) 0 units SC [facility] PRN Reason: Protocol Last Admin: 06/08/17 16:54 Dose: Not Given Lisinopril (Zestril) 10 mg PO DAILY [facility] Last Admin: 06/08/17 10:38 Dose: 10 mg Loratadine (Claritin) 10 mg PO DAILY [facility] Last Admin: 06/08/17 10:38 Dose: 10 mg Montelukast Sodium (Singulair) 10 mg PO HS [facility] Last Admin: 06/07/17 22:16 Dose: 10 mg Ondansetron HCl (Zofran Inj) 4 mg IVP Q6H PRN PRN Reason: Nausea/Vomiting Last Admin: 06/08/17 12:18 Dose: 4 mg Pantoprazole Sodium (Protonix Ec Tab) 40 mg PO 0600 [facility] Last Admin: 06/08/17 05:53 Dose: 40 mg Polyethylene Glycol (Miralax) 17 gm PO DAILY [facility] Last Admin: 06/08/17 10:38 Dose: 17 gm Pregabalin (Lyrica) 75 mg PO DAILY [facility] Last Admin: 06/08/17 10:37 Dose: 75 mg Quetiapine Fumarate (Seroquel) 200 mg PO [facility] PRN Reason: Protocol Last Admin: 06/07/17 22:16 Dose: 200 mg Spironolactone (Aldactone) 25 mg PO DAILY [facility] Last Admin: 06/08/17 10:38 Dose: 25 mg - Labs Labs: 06/08/17 06:30 06/08/17 06:30 PT 12.0 Seconds (9.9-11.8) H 06/07/17 13:50 INR 1.11 (0.93-1.08) H 06/07/17 13:50 APTT 25.7 Seconds (23.7-30.8) 06/07/17 13:50 - Constitutional Appears: Well - Head Exam Head Exam: ATRAUMATIC, NORMAL INSPECTION, NORMOCEPHALIC - Eye Exam Eye Exam: EOMI, Normal appearance, PERRL Pupil Exam: NORMAL ACCOMODATION, PERRL - ENT Exam ENT Exam: Mucous Membranes Moist, Normal Exam - Neck Exam Neck Exam: Full ROM, Normal Inspection. absent: Lymphadenopathy - Respiratory Exam Respiratory Exam: Clear to Ausculation Bilateral, Prolonged Expiratory Phase, NORMAL BREATHING PATTERN - Cardiovascular Exam Cardiovascular Exam: REGULAR RHYTHM, +S1, +S2. absent: Murmur - GI/Abdominal Exam GI & Abdominal Exam: Soft, Normal Bowel Sounds. absent: Tenderness - Rectal Exam Rectal Exam: NORMAL INSPECTION - Exam Exam: Circumcision, NORMAL INSPECTION External exam: NORMAL EXTERNAL EXAM Speculum exam: NORMAL SPECULUM EXAM Bimanual exam: NORMAL BIMANUAL EXAM - Extremities Exam Extremities Exam: Full ROM, Normal Capillary Refill, Normal Inspection. absent : Joint Swelling, Pedal Edema - Back Exam Back Exam: NORMAL INSPECTION - Neurological Exam Neurological Exam: Alert, Awake, CN II-XII Intact, Normal Gait, Oriented x3 - Psychiatric Exam Psychiatric exam: Normal Affect, Normal Mood - Skin Skin Exam: Dry, Intact, Normal Color, Warm Assessment and Plan (1) Hematuria Status: Acute (2) Jaundice Status: Acute (3) Abdominal pain Status: Acute (4) Benzodiazepine overdose Status: Acute (5) Diverticulitis Status: Acute (6) Dizziness Status: Acute (7) Gross hematuria Status: Acute (8) Liver lesion Status: Acute (9) Malignancies Status: Acute (10) Malignant tumor head pancreas Status: Acute (11) Overdose Status: Acute - Assessment and Plan (Free Text) Assessment: ASSESSMENT: Obstructive Jaundice Pancreatic Mass, dilated ducts, attempted ERCP, PTC drain Hepatitis C Elevated LFT Liver Mass Lung nodules DM type II COPD Fibromyalgia Constipation on miralax PLAN: encourage liquids add ENSURE Clear trend lft pain mgt continue GI prophylaxsis DVT prophylax , d/d with family
[2017-06-09] MEDS: Albuterol-Ipratrop 3 mg / 0.5 (3 ml) UD IH SCH ×4 (02:05→20:37)
[2017-06-09] MEDS: HYDROmorphone 1 mg/ml ISec IVP PRN ×4 (03:15→18:11)
[2017-06-09] MEDS: Pantoprazole 40 mg EC Tab PO SCH (05:15)
[2017-06-09 07:14] LABS: ALB/GLOB RATIO 0.8 (1.1-1.8); ALBUMIN 3.9 g/dL (3.0-4.8); BILIRUBIN,DIRECT 8.7 mg/dL (0.0-0.4)
[2017-06-09] MEDS: Insulin Reg-LOW-Coverage SC SCH ×4 (08:02→22:00)
[2017-06-09] MEDS: POLYETHYLENE GLYCOL 3350 17 GM/Dose PACKET PO SCH (09:35)
[2017-06-09] MEDS: Enoxaparin 40 mg Syringe SC SCH (09:35)
--- NOTE | 2017-06-09 13:25 | PN ---
DATE: 06/09/2017 SUBJECTIVE: The patient is seen and examined at the bedside earlier this morning. The patient still reports abdominal pain. She occasionally does have nausea but no vomiting. She is tolerating some liquids but not able to tolerate the full tray. She is drinking the Ensure Clear. She is having one bowel movement. No reports of any bleeding. No acute overnight events reported. She still has the PTC drain which is draining dark bilious fluid and that drained about 540 mL. PHYSICAL EXAMINATION VITAL SIGNS: Temperature is 99.2, blood pressure 140/90, pulse 97, respirations 20. HEENT: Sclerae are icteric but less. NECK: Supple. CARDIOPULMONARY: S1, S2. LUNGS: With decreased breath sounds but clear. ABDOMEN: With bowel sounds, soft. Positive tenderness. No rebound or guarding. She has right upper quadrant biliary drain. This insertion site looks dry and intact, and the bag is noted to have dark green bilious fluid. EXTREMITIES: Lower extremities positive pulses, no edema. NEUROLOGIC: The patient is awake, alert. LABORATORY DATA: Today, her total bilirubin is 10.0, direct bilirubin is 8.7, AST 121, ALT 91, alkaline phosphatase 323. Liver enzymes show a slow downward trend. ASSESSMENT: This is a 66-year-old female with obstructive jaundice with history of pancreatic mass and dilated ducts, status post attempted ERCP, went for a PTC drain. Her liver enzymes are slowly improving. Her jaundice is slightly better. She does have a history of hepatitis C, liver mass, lung nodules, fibromyalgia, improved constipation and history of diabetes mellitus type 2. PLAN: She remains on a clear liquid diet. The patient does not want her diet advanced. I encouraged her to drink liquids and she is also on Ensure Clear. We will continue to trend the liver enzymes and continue GI prophylaxis. She is also on MiraLax and DVT prophylaxis. The patient is on analgesia for pain. The patient was seen and case discussed with Dr. Dick. JANELL Terry
--- NOTE | 2017-06-09 16:22 | PN ---
PULMONARY PROGRESS NOTE DATE: 06/09/2017 REFERRING PHYSICIAN: Dr. Ferrara. SUBJECTIVE: She is sitting side of the bed. Night was unremarkable. Having lunch, feels better, decreased abdominal pain, draining bile in the percutaneous cholecystostomy tube. No leg pain or leg swelling. OBJECTIVE: GENERAL: No acute distress. VITAL SIGNS: Temperature 99, heart rate is 97, respiratory rate is 20, blood pressure 140/90, pulse ox 95% on room air. HEENT: Moist mucous membrane. Crowded airway. Mallampati score is 4. NECK: Supple. No JVD. LUNGS: Fair airflow with rhonchi. HEART: S1 and S2. ABDOMEN: Positive bowel sounds, catheter draining well, nontender abdomen. EXTREMITIES: There is no edema. NEUROLOGICALLY: Awake, alert, and follows simple commands. MEDICATIONS: She is on Aldactone 25 mg daily, Claritin 10 mg daily, Cymbalta 30 mg daily, Dilaudid 1 mg q.4 hour p.r.n., DuoNeb q.6 hour, glipizide 10 mg daily, insulin coverage, Lasix 40 mg daily, Lipitor 10 mg daily, Lopid 600 mg twice a day, Lovenox 40 mg daily, Lyrica 75 mg daily, MiraLax 17 g daily, Protonix 40 mg daily, Seroquel 200 mg at bedtime, Singulair 10 mg daily, Xanax 0.5 mg daily, also Xanax 1 mg at bedtime, Zestril 10 mg daily, Zofran p.r.n. basis. LABORATORY DATA: Reviewed and shows total bilirubin 10, AST 121, direct bilirubin 8.7, ALT 91, alkaline phosphatase 323, total protein 8.5, albumin is 3.9. IMPRESSION AND PLAN: Adenocarcinoma, which is a metastatic disease, mass on the pancreatic head also liver mass, and lung mass, primary still is unknown. Obstruction of the ducts with jaundice, status post percutaneous cholecystostomy, draining well, hypertension, sleep apnea syndrome, diabetes, chronic lung disease. I spoke to nursing staff, continue bronchodilator, keep head 45 degree. She supposed to get a MRI, which supposed to be order by Dr. Merchant, not available. We will order ultrasound of the pelvis and if it is remarkable may need vaginal ultrasound to make sure ovaries and uterus are okay and this cancer is not a [employer] origin. Thank you, we will follow with you. Linnea Stephen MD
--- NOTE | 2017-06-09 23:10 | PN ---
DATE: 06/09/2017 SUBJECTIVE: The patient examined at bedside, complaining about abdominal pain. No nausea, vomiting, diarrhea. No hematuria, no hematochezia. No headache or dizziness. PHYSICAL EXAMINATION VITAL SIGNS: Temperature 97.7, pulse 101, blood pressure 113/77, respiratory rate 18. HEENT: Head, normocephalic and atraumatic. Eyes, PERRLA. Extraocular muscles intact. Conjunctivae clear. Nose is patent. Mucous membranes moist. NECK: Supple. No carotid bruit. No JVD or thyromegaly. CHEST: Bilaterally symmetrical. HEART: S1, S2 positive. LUNGS: Clear to auscultation. ABDOMEN: Soft. Bowel sounds present. No organomegaly. EXTREMITIES: No edema or cyanosis. NEUROLOGIC: The patient is awake and alert. Moving all 4 extremities. No focal deficit. LABORATORY DATA: White blood cell is 10.6, hemoglobin 11.5, hematocrit 34.4, platelets 292. Glucose 203, 146. Bilirubin 10.0, AST 121, ALT 91, alkaline phosphatase 323. MEDICATIONS: Aldactone, Claritin, Cymbalta, Dilaudid, Glucotrol, DuoNeb, insulin, Lasix, Lipitor, Lopid, Lovenox, Lyrica, MiraLax, Protonix, Xanax, Zestril, Zofran. ASSESSMENT AND PLAN: The patient is a 66-year-old lady with anemia, uncontrolled diabetes mellitus, abnormal liver function test. pelvis MRI results are pending. 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 Loi Zamudio, draining very well. Cholecystostomy. Going tomorrow for permanent stenting, hypertension, sleep apnea syndrome, chronic lung disease, history of heavy smoking. Dr. Stephen ordered ultrasound of the pelvis. GI and DVT prophylaxis. Repeat labs. Out of bed. Physical therapy. Pain management. Status post attempted ERCP lead to PTC drain. Liver function tests are trending down. The patient has history of hepatitis C also, fibromyalgia, constipation. The patient is still getting clear liquid diet, she does not mind that. She is afraid to eat regular diet, so she refused for advancing diet, but she is getting Ensure. We will follow. Georgina Ferrara MD [facility] # [id number]
[2017-06-10] MEDS: Pantoprazole 40 mg EC Tab PO SCH (05:33)
[2017-06-10 07:10] LABS: HEMOGLOBIN 10.8 gm/dL (12.0-16.0); MEAN CELL VOLUME 81.9 fL (80.0-105.0); MEAN CORPUSCULAR HEMOGLOBIN 27.5 pg (25.0-35.0); MEAN CORPUSCULAR HGB CONC 33.5 g/dl (31.0-37.0); MEAN PLATELET VOLUME 9.6 fl (7.0-11.0); RBC 3.93 10^6/uL (3.5-6.1); RED CELL DISTRIBUTION WIDTH 18.1 % (11.5-14.5); WHITE BLOOD COUNT 13.4 10^3/ul (4.5-11.0)
[2017-06-10 07:33] LABS: ALB/GLOB RATIO 0.9 (1.1-1.8); ALBUMIN 3.7 g/dL (3.0-4.8); BILIRUBIN,DIRECT 8.3 mg/dL (0.0-0.4)
[2017-06-10] MEDS: Albuterol-Ipratrop 3 mg / 0.5 (3 ml) UD IH SCH ×3 (08:04→20:01)
[2017-06-10] MEDS: Insulin Reg-LOW-Coverage SC SCH ×3 (08:35→17:42)
[2017-06-10] MEDS: HYDROmorphone 1 mg/ml ISec IVP PRN ×2 (08:43→13:50)
--- NOTE | 2017-06-10 10:15 | CP.PCM.PN ---
Subjective - Date & Time of Evaluation Date of Evaluation: 06/10/17 Time of Evaluation: 09:45 - Subjective Subjective: S&E at bedside, just received pain medication for abdominal pain, reports that some from PTC drain and diffuse mid abdomen. Still not drinking adequate fluids , denies post prandial abdominal pain. Some nausea, no vomiting. Denies diarrhea , no overt GI bleeding. Had MRI pelvis yesterday and prelim report/night hawk report no obvious invasion of pelvis side wall, bladder of significant lymph nodes, there is mild diffuse rectal thickening mid and inferior rectal region to anal margin, stricture at superior junction rectal region. PTC drain with green fluid. No fever or chill, SOB or chest pain. For internalization stenting today. Objective - Vital Signs/Intake and Output Vital Signs (last 24 hours): Temp Pulse Resp BP Pulse Ox 99 F 97 H 20 99/56 L 94 L 06/10/17 08:39 06/10/17 08:39 06/10/17 08:39 06/10/17 08:39 06/10/17 08:39 Intake and Output: 06/10/17 06/10/17 06:59 18:59 Intake Total 0 Output Total 300 Balance -300 - Medications Medications: Current Medications Albuterol/Ipratropium (Duoneb 3 Mg/0.5 Mg (3 Ml) Ud) 3 ml IH [id number] [facility] Last Admin: 06/10/17 08:04 Dose: Not Given Alprazolam (Xanax) 0.5 mg PO DAILY [facility] PRN Reason: Protocol Last Admin: 06/09/17 09:36 Dose: 0.5 mg Alprazolam (Xanax) 1 mg PO HS [facility] PRN Reason: Protocol Last Admin: 06/09/17 21:34 Dose: 1 mg Atorvastatin Calcium (Lipitor) 10 mg PO DIN [facility] Last Admin: 06/02/17 16:10 Dose: 10 mg Duloxetine HCl (Cymbalta) 30 mg PO DAILY [facility] Last Admin: 06/09/17 09:36 Dose: 30 mg Enoxaparin Sodium (Lovenox) 40 mg SC DAILY [facility] PRN Reason: Protocol Last Admin: 06/09/17 09:35 Dose: 40 mg Furosemide (Lasix) 40 mg PO DAILY [facility] Last Admin: 06/09/17 09:36 Dose: 40 mg Gemfibrozil (Lopid) 600 mg PO BID [facility] Last Admin: 06/09/17 18:11 Dose: 600 mg Glipizide (Glucotrol Xl) 10 mg PO DAILY [facility] Last Admin: 06/02/17 09:01 Dose: 10 mg Hydromorphone HCl (Dilaudid) 1 mg IVP Q4H PRN PRN Reason: Pain, severe (8-10) Last Admin: 06/10/17 08:43 Dose: 1 mg Insulin Human Regular (Humulin R Low) 0 units SC [facility] PRN Reason: Protocol Last Admin: 06/10/17 08:35 Dose: 1 units Lisinopril (Zestril) 10 mg PO DAILY [facility] Last Admin: 06/09/17 09:36 Dose: 10 mg Loratadine (Claritin) 10 mg PO DAILY [facility] Last Admin: 06/09/17 09:36 Dose: 10 mg Montelukast Sodium (Singulair) 10 mg PO HS [facility] Last Admin: 06/09/17 21:34 Dose: 10 mg Ondansetron HCl (Zofran Inj) 4 mg IVP Q6H PRN PRN Reason: Nausea/Vomiting Last Admin: 06/08/17 12:18 Dose: 4 mg Pantoprazole Sodium (Protonix Ec Tab) 40 mg PO 0600 [facility] Last Admin: 06/10/17 05:33 Dose: 40 mg Polyethylene Glycol (Miralax) 17 gm PO DAILY [facility] Last Admin: 06/09/17 09:35 Dose: 17 gm Pregabalin (Lyrica) 75 mg PO DAILY [facility] Last Admin: 06/09/17 09:35 Dose: 75 mg Quetiapine Fumarate (Seroquel) 200 mg PO [facility] PRN Reason: Protocol Last Admin: 06/09/17 21:33 Dose: 200 mg Spironolactone (Aldactone) 25 mg PO DAILY [facility] Last Admin: 06/09/17 09:35 Dose: 25 mg - Labs Labs: 06/10/17 06:00 06/08/17 06:30 PT 12.0 Seconds (9.9-11.8) H 06/07/17 13:50 INR 1.11 (0.93-1.08) H 06/07/17 13:50 APTT 25.7 Seconds (23.7-30.8) 06/07/17 13:50 - Constitutional Appears: No Acute Distress - Head Exam Head Exam: NORMOCEPHALIC - Eye Exam Eye Exam: Scleral icterus (improving) - ENT Exam ENT Exam: Mucous Membranes Dry - Neck Exam Neck Exam: Normal Inspection - Respiratory Exam Respiratory Exam: Decreased Breath Sounds, NORMAL BREATHING PATTERN. absent: Prolonged Expiratory Phase, Rales, Wheezes, Respiratory Distress - Cardiovascular Exam Cardiovascular Exam: +S1, +S2 - GI/Abdominal Exam GI & Abdominal Exam: Soft, Tenderness, Normal Bowel Sounds. absent: Guarding, Rebound - Extremities Exam Extremities Exam: Normal Capillary Refill. absent: Calf Tenderness, Pedal Edema - Neurological Exam Neurological Exam: Alert, Awake, Oriented x3 - Skin Skin Exam: Dry, Warm Assessment and Plan - Assessment and Plan (Free Text) Assessment: ASSESSMENT: Obstructive Jaundice with Pancreatic Mass, dilated ducts, attempted ERCP, s/ pPTC drain Hepatitis C Elevated LFT Liver Mass Lung nodules DM type II COPD Fibromyalgia Constipation on miralax PLAN: on clear liquid, continue to encourage fluid, drinking the clear ensure trend lft, continue downward trend pain mgt continue GI prophylaxsis DVT prophylaxsis for vascular this am for internal stenting w/ Dr. Zamudio start IVF fluids D50.45NS @60cc/hr Seen and discussed w/ Dr. Merchant.
[2017-06-10] MEDS ORDERED: Dextrose 5%/0.45% NS 1,000 ML IV SCH (11:45)
[2017-06-10] MEDS ORDERED: Midazolam 2 MG/2 ML VIAL ONE ×2 (12:04→12:28)
[2017-06-10] MEDS ORDERED: Lidocaine 2% Inj (20ml) ONE (12:04)
[2017-06-10] MEDS ORDERED: Iodixanol 320 mg/ml 150 ml Bottle IV ONE (12:15)
[2017-06-10] MEDS ORDERED: Sodium Chloride 0.45% 1,000 ML IV SCH (13:15)
--- NOTE | 2017-06-10 13:23 | MRI ---
PROCEDURE: MRI pelvis without contrast HISTORY: metastatic adeno, car COMPARISON: None available. TECHNIQUE: Multiplanar, multi sequence MR images of the pelvis were obtained. No intravenous gadolinium contrast was administered. FINDINGS: UTERUS: The uterus measures 77 mm in length by 29 mm AP x 34 mm with. There is a 12 mm fibroid in the uterine fundus. OVARIES/ ADNEXA: Right ovary: Unremarkable. Left ovary: Unremarkable. Fallopian tubes: Not visualized. No evidence of hydrosalpinx. BOWEL: Partially visualized rectosigmoid colon is grossly unremarkable. LYMPH NODES: No lymphadenopathy. BLADDER: Unremarkable. FREE FLUID: None. PELVIC BONES: Grossly unremarkable. OTHER FINDINGS: None. IMPRESSION: Unremarkable non-contrast enhanced MRI of the pelvis.
[2017-06-10] MEDS: POLYETHYLENE GLYCOL 3350 17 GM/Dose PACKET PO SCH (13:45)
[2017-06-10] MEDS: Enoxaparin 40 mg Syringe SC SCH (13:45)
--- NOTE | 2017-06-10 22:38 | CP.PCM.PN ---
Subjective - Date & Time of Evaluation Date of Evaluation: 06/10/17 Time of Evaluation: 01:00 - Subjective Subjective: - Subjective Subjective: S&E at bedside, just received pain medication for abdominal pain, reports that some from PTC drain and diffuse mid abdomen. Still not drinking adequate fluids getting boost , denies post prandial abdominal pain. Some nausea, no vomiting. Denies diarrhea, no overt GI bleeding. Had MRI pelvis yesterday and no obvious invasion of pelvis side wall, bladder of significant lymph nodes, there is mild diffuse rectal thickening mid and inferior rectal region to anal margin, stricture at superior junction rectal region. PTC drain with green fluid. No fever or chill, SOB or chest pain. For internalization stenting today. Objective - Vital Signs/Intake and Output Vital Signs (last 24 hours): Temp Pulse Resp BP Pulse Ox 98.2 F 97 H 20 109/72 94 L 06/10/17 16:00 06/10/17 16:00 06/10/17 16:00 06/10/17 16:00 06/10/17 16:00 Intake and Output: 06/10/17 06/11/17 18:59 06:59 Intake Total 40 0 Balance 40 0 - Medications Medications: Current Medications Albuterol/Ipratropium (Duoneb 3 Mg/0.5 Mg (3 Ml) Ud) 3 ml IH [id number] [facility] Last Admin: 06/10/17 20:01 Dose: Not Given Alprazolam (Xanax) 0.5 mg PO DAILY [facility] PRN Reason: Protocol Last Admin: 06/10/17 13:45 Dose: 0.5 mg Alprazolam (Xanax) 1 mg PO HS [facility] PRN Reason: Protocol Last Admin: 06/10/17 22:21 Dose: 1 mg Atorvastatin Calcium (Lipitor) 10 mg PO DIN [facility] Last Admin: 06/02/17 16:10 Dose: 10 mg Duloxetine HCl (Cymbalta) 30 mg PO DAILY [facility] Last Admin: 06/10/17 13:46 Dose: 30 mg Furosemide (Lasix) 40 mg PO DAILY [facility] Last Admin: 06/10/17 13:46 Dose: 40 mg Gemfibrozil (Lopid) 600 mg PO BID [facility] Last Admin: 06/10/17 17:43 Dose: 600 mg Glipizide (Glucotrol Xl) 10 mg PO DAILY [facility] Last Admin: 06/02/17 09:01 Dose: 10 mg Hydromorphone HCl (Dilaudid) 1 mg IVP Q4H PRN PRN Reason: Pain, severe (8-10) Last Admin: 06/10/17 13:50 Dose: 1 mg Dextrose/Sodium Chloride (Dextrose 5%/0.45% Ns 1000 Ml) 1,000 mls @ 60 mls/hr IV .[id number] [facility] Last Admin: 06/10/17 13:46 Dose: 60 mls/hr Sodium Chloride (Sodium Chloride 0.45%) 1,000 mls @ 80 mls/hr IV .[id number] [facility] Stop: 06/11/17 12:00 Insulin Human Regular (Humulin R Low) 0 units SC ACHS [facility] PRN Reason: Protocol Last Admin: 06/10/17 17:42 Dose: 3 units Lisinopril (Zestril) 10 mg PO DAILY [facility] Last Admin: 06/10/17 13:46 Dose: 10 mg Loratadine (Claritin) 10 mg PO DAILY [facility] Last Admin: 06/10/17 13:45 Dose: 10 mg Montelukast Sodium (Singulair) 10 mg PO HS [facility] Last Admin: 06/10/17 22:21 Dose: 10 mg Ondansetron HCl (Zofran Inj) 4 mg IVP Q6H PRN PRN Reason: Nausea/Vomiting Last Admin: 06/08/17 12:18 Dose: 4 mg Pantoprazole Sodium (Protonix Ec Tab) 40 mg PO 0600 [facility] Last Admin: 06/10/17 05:33 Dose: 40 mg Polyethylene Glycol (Miralax) 17 gm PO DAILY [facility] Last Admin: 06/10/17 13:45 Dose: 17 gm Pregabalin (Lyrica) 75 mg PO DAILY [facility] Last Admin: 06/10/17 13:46 Dose: 75 mg Quetiapine Fumarate (Seroquel) 200 mg PO HS [facility] PRN Reason: Protocol Last Admin: 06/10/17 22:15 Dose: 200 mg Spironolactone (Aldactone) 25 mg PO DAILY [facility] Last Admin: 06/10/17 13:45 Dose: 25 mg - Labs Labs: 06/10/17 06:00 06/08/17 06:30 PT 12.0 Seconds (9.9-11.8) H 06/07/17 13:50 INR 1.11 (0.93-1.08) H 06/07/17 13:50 APTT 25.7 Seconds (23.7-30.8) 06/07/17 13:50 - Constitutional Appears: Well - Head Exam Head Exam: ATRAUMATIC, NORMAL INSPECTION, NORMOCEPHALIC - Eye Exam Eye Exam: EOMI, Normal appearance, PERRL Pupil Exam: NORMAL ACCOMODATION, PERRL - ENT Exam ENT Exam: Mucous Membranes Moist, Normal Exam - Neck Exam Neck Exam: Full ROM, Normal Inspection. absent: Lymphadenopathy - Respiratory Exam Respiratory Exam: Clear to Ausculation Bilateral, NORMAL BREATHING PATTERN - Cardiovascular Exam Cardiovascular Exam: REGULAR RHYTHM, +S1, +S2. absent: Murmur - GI/Abdominal Exam GI & Abdominal Exam: Distended, Firm. absent: Tenderness - Rectal Exam Rectal Exam: NORMAL INSPECTION - Exam Exam: Circumcision, NORMAL INSPECTION External exam: NORMAL EXTERNAL EXAM Speculum exam: NORMAL SPECULUM EXAM Bimanual exam: NORMAL BIMANUAL EXAM - Extremities Exam Extremities Exam: Full ROM, Normal Capillary Refill, Normal Inspection. absent : Joint Swelling, Pedal Edema - Back Exam Back Exam: NORMAL INSPECTION - Neurological Exam Neurological Exam: Alert, Awake, CN II-XII Intact, Normal Gait, Oriented x3 - Psychiatric Exam Psychiatric exam: Normal Affect, Normal Mood - Skin Skin Exam: Dry, Intact, Normal Color, Warm Assessment and Plan (1) Hematuria Status: Acute (2) Jaundice Status: Acute (3) Abdominal pain Status: Acute (4) Benzodiazepine overdose Status: Acute (5) Diverticulitis Status: Acute (6) Dizziness Status: Acute (7) Gross hematuria Status: Acute (8) Liver lesion Status: Acute (9) Malignancies Status: Acute (10) Malignant tumor head pancreas Status: Acute (11) Overdose Status: Acute - Assessment and Plan (Free Text) Assessment: ASSESSMENT: Obstructive Jaundice with Pancreatic Mass, dilated ducts, attempted ERCP, s/ pPTC drain Hepatitis C Elevated LFT Liver Mass Lung nodules DM type II COPD Fibromyalgia Constipation on miralax PLAN: on clear liquid, continue to encourage fluid, drinking the clear ensure trend lft, continue downward trend pain mgt continue GI prophylaxsis DVT prophylaxsis for vascular this am for internal stenting w/ Dr. Zamudio start IVF fluids D50.45NS @60cc/hr
--- NOTE | 2017-06-11 00:14 | PN ---
DATE: 06/10/2017 PULMONARY PROGRESS NOTE REFERRING PHYSICIAN: Dr. Ferrara. SUBJECTIVE: The patient is lying in the stretcher, waiting for percutaneous biliary stent placement, recently medicated, still have abdominal pain. No nausea, no vomiting, no diarrhea. No leg pain or leg swelling. OBJECTIVE: GENERAL: No acute distress. VITAL SIGNS: Temperature 98, heart rate is 95, respiratory rate is 20, blood pressure is 119/81, pulse ox 98% on 2 liters nasal cannula. HEENT: Moist mucous membranes. Crowded airway. NECK: Supple. No JVD. LUNGS: Fair airflow with rhonchi. HEART: S1 and S2. ABDOMEN: Soft, nontender. Right upper quadrant tenderness, percutaneous drain is working well. EXTREMITIES: There is no edema. NEUROLOGIC: Awake, alert, follows simple commands. MEDICATIONS: She is on Aldactone 25 mg daily, Claritin 10 mg daily, Cymbalta 30 mg daily, IV fluid D5 half normal saline 60 mL per hour, Dilaudid 1 mg q 4 hours p.r.n., DuoNeb q 6 hours, glipizide 10 mg daily, insulin coverage, Lasix 40 mg daily, Lipitor 10 mg daily, Lopid 600 mg twice a day, Lyrica 75 mg daily, MiraLax 17 g p.o. daily, Protonix 40 mg daily, Seroquel 200 mg at bedtime, Singulair 10 mg daily, Xanax 0.5 mg daily, also Xanax 1 mg at bedtime, Zestril 10 mg daily, Zofran p.r.n. basis. LABORATORY DATA: Shows hemoglobin 10.8, hematocrit 32.8, WBC 13.4, platelets is 302. Her LFTs show total bilirubin 9.2, direct bilirubin 8.3. AST 78, ALT 59, alkaline phosphatase is 271, and albumin is 3.7. IMPRESSION AND PLAN: Metastatic adenocarcinoma, primary still involving the lungs, liver, head of the pancreas putting external pressure on the biliary ducts, status post percutaneous cholecystostomy tube placement, history of chronic lung disease, sleep apnea syndrome, diabetes, hypertension, waiting for internalization of the biliary stent, sleep apnea precautions if sedated, gastric prophylaxis, deep vein thrombosis prophylaxis, oncology followup. Thank you, and we will follow with you. Linnea Stephen MD [facility] # [id number]
--- NOTE | 2017-06-11 01:29 | CP.PCM.PN ---
Subjective - Date & Time of Evaluation Date of Evaluation: 06/11/17 Time of Evaluation: 01:26 - Subjective Subjective: Patient was seen at bedside because he had been lethargic, confused and had slurred speech. States that it is 1995, knows that she is in [facility].Can not tell correct month or year. She is S/P biliary stent yesterday-around 4 pm. 97/76, 42, [id number] mg%,pulse ox 73 % to 93 % on RA, 100 % on 3L/min by nasal canula.HR-100/min, Temp:98.2*. Medical record was reviewed . This 66 year old woman was admitted Has PMH of liver mass, pulmonary nodules , hepatitis C, pancreatic head mass, Fibromyalgia, COPD, NIDDM.lung nodules, constipation. Objective - Vital Signs/Intake and Output Vital Signs (last 24 hours): Temp Pulse Resp BP Pulse Ox 98.2 F 97 H 20 109/72 94 L 06/10/17 16:00 06/10/17 16:00 06/10/17 16:00 06/10/17 16:00 06/10/17 16:00 Intake and Output: 06/10/17 06/11/17 18:59 06:59 Intake Total 40 0 Balance 40 0 - Medications Medications: Current Medications Albuterol/Ipratropium (Duoneb 3 Mg/0.5 Mg (3 Ml) Ud) 3 ml IH [id number] [facility] Last Admin: 06/10/17 20:01 Dose: Not Given Alprazolam (Xanax) 0.5 mg PO DAILY [facility] PRN Reason: Protocol Last Admin: 06/10/17 13:45 Dose: 0.5 mg Alprazolam (Xanax) 1 mg PO HS [facility] PRN Reason: Protocol Last Admin: 06/10/17 22:21 Dose: 1 mg Atorvastatin Calcium (Lipitor) 10 mg PO DIN [facility] Last Admin: 06/02/17 16:10 Dose: 10 mg Duloxetine HCl (Cymbalta) 30 mg PO DAILY [facility] Last Admin: 06/10/17 13:46 Dose: 30 mg Furosemide (Lasix) 40 mg PO DAILY [facility] Last Admin: 06/10/17 13:46 Dose: 40 mg Gemfibrozil (Lopid) 600 mg PO BID [facility] Last Admin: 06/10/17 17:43 Dose: 600 mg Glipizide (Glucotrol Xl) 10 mg PO DAILY [facility] Last Admin: 06/02/17 09:01 Dose: 10 mg Hydromorphone HCl (Dilaudid) 1 mg IVP Q4H PRN PRN Reason: Pain, severe (8-10) Last Admin: 06/10/17 13:50 Dose: 1 mg Dextrose/Sodium Chloride (Dextrose 5%/0.45% Ns 1000 Ml) 1,000 mls @ 60 mls/hr IV .[id number] [facility] Last Admin: 06/10/17 13:46 Dose: 60 mls/hr Sodium Chloride (Sodium Chloride 0.45%) 1,000 mls @ 80 mls/hr IV .[id number] [facility] Stop: 06/11/17 12:00 Insulin Human Regular (Humulin R Low) 0 units SC ACHS [facility] PRN Reason: Protocol Last Admin: 06/10/17 17:42 Dose: 3 units Lisinopril (Zestril) 10 mg PO DAILY [facility] Last Admin: 06/10/17 13:46 Dose: 10 mg Loratadine (Claritin) 10 mg PO DAILY [facility] Last Admin: 06/10/17 13:45 Dose: 10 mg Montelukast Sodium (Singulair) 10 mg PO HS [facility] Last Admin: 06/10/17 22:21 Dose: 10 mg Ondansetron HCl (Zofran Inj) 4 mg IVP Q6H PRN PRN Reason: Nausea/Vomiting Last Admin: 06/08/17 12:18 Dose: 4 mg Pantoprazole Sodium (Protonix Ec Tab) 40 mg PO 0600 [facility] Last Admin: 06/10/17 05:33 Dose: 40 mg Polyethylene Glycol (Miralax) 17 gm PO DAILY [facility] Last Admin: 06/10/17 13:45 Dose: 17 gm Pregabalin (Lyrica) 75 mg PO DAILY [facility] Last Admin: 06/10/17 13:46 Dose: 75 mg Quetiapine Fumarate (Seroquel) 200 mg PO HS [facility] PRN Reason: Protocol Last Admin: 06/10/17 22:15 Dose: 200 mg Spironolactone (Aldactone) 25 mg PO DAILY [facility] Last Admin: 06/10/17 13:45 Dose: 25 mg - Labs Labs: 06/10/17 06:00 06/08/17 06:30 PT 12.0 Seconds (9.9-11.8) H 06/07/17 13:50 INR 1.11 (0.93-1.08) H 06/07/17 13:50 APTT 25.7 Seconds (23.7-30.8) 06/07/17 13:50 Most Recent Lab Values WBC 12.8 10^3/ul (4.5-11.0) H 06/11/17 01:45 RBC 3.90 10^6/uL (3.5-6.1) 06/11/17 01:45 Hgb 10.8 gm/dL (12.0-16.0) L 06/11/17 01:45 Hct 31.5 % (36.0-48.0) L 06/11/17 01:45 MCV 80.8 fL (80.0-105.0) 06/11/17 01:45 MCH 27.7 pg (25.0-35.0) 06/11/17 01:45 MCHC 34.3 g/dl (31.0-37.0) 06/11/17 01:45 RDW 17.9 % (11.5-14.5) H 06/11/17 01:45 Plt Count 324 10^3/uL (120.0-450.0) 06/11/17 01:45 MPV 9.7 fl (7.0-11.0) 06/11/17 01:45 Gran % 78.1 % (50.0-68.0) H 06/11/17 01:45 Lymph % (Auto) 12.6 % (22.0-35.0) L 06/11/17 01:45 [place] % (Auto) 8.1 % (1.0-6.0) H 06/11/17 01:45 Eos % (Auto) 1.1 % (1.5-5.0) L 06/11/17 01:45 Baso % (Auto) 0.1 % (0.0-3.0) 06/11/17 01:45 Gran # 9.97 (1.4-6.5) H 06/11/17 01:45 Lymph # 1.6 (1.2-3.4) 06/11/17 01:45 [place] # 1.0 (0.1-0.6) H 06/11/17 01:45 Eos # 0.1 (0.0-0.7) 06/11/17 01:45 Baso # 0.01 K/mm3 (0.0-2.0) 06/11/17 01:45 PT 12.0 Seconds (9.9-11.8) H 06/07/17 13:50 INR 1.11 (0.93-1.08) H 06/07/17 13:50 APTT 25.7 Seconds (23.7-30.8) 06/07/17 13:50 Sodium 139 mmol/L (132-148) 06/08/17 06:30 Potassium 3.6 mmol/L (3.6-5.0) 06/08/17 06:30 Chloride 102 mmol/L (95-110) 06/08/17 06:30 Carbon Dioxide 25 mmol/L (21-33) 06/08/17 06:30 Anion Gap 16 (10-20) 06/08/17 06:30 BUN 9 mg/dL (7-21) 06/08/17 06:30 Creatinine 0.7 mg/dL (0.5-1.4) 06/08/17 06:30 Est GFR ( Amer) > 60 06/08/17 06:30 Est GFR (Non-Af Amer) > 60 06/08/17 06:30 POC Glucose (mg/dL) 144 mg/dL (65-110) H 06/10/17 21:31 Random Glucose 145 mg/dL (70-110) H 06/08/17 06:30 Calcium 9.6 mg/dL (8.4-10.5) 06/08/17 06:30 Total Bilirubin 9.2 mg/dL (0.2-1.3) H 06/10/17 06:00 Direct Bilirubin 8.3 mg/dL (0.0-0.4) H 06/10/17 06:00 AST 78 U/L (15-39) H 06/10/17 06:00 ALT 59 U/L (7-56) H 06/10/17 06:00 Alkaline Phosphatase 271 U/L (38-133) H 06/10/17 06:00 Ammonia 25 umol/L (9-33) 06/11/17 01:45 Total Protein 8.0 g/dL (5.8-8.3) 06/10/17 06:00 Albumin 3.7 g/dL (3.0-4.8) 06/10/17 06:00 Globulin 4.3 gm/dL 06/10/17 06:00 Albumin/Globulin Ratio 0.9 (1.1-1.8) L 06/10/17 06:00 Amylase 169 U/L (35-125) H 06/05/17 06:30 Alpha Fetoprotein 6.1 ng/mL (0.0-7.5) 06/03/17 06:30 Carcinoembryonic Ag 4.5 ng/mL (0.0-3.0) H 06/03/17 06:30 CA 19-9 Antigen 40.5 U/mL (0-37) H D 06/03/17 06:30 CA 125 Antigen 11.1 U/mL (0-35) 06/03/17 06:30 Urine Color Brown (YELLOW) 06/02/17 06:50 Urine Appearance Sl cloudy (CLEAR) 06/02/17 06:50 Urine pH 6.0 (4.7-8.0) 06/02/17 06:50 Ur Specific [place] 1.025 (1.005-1.035) 06/02/17 06:50 Urine Protein 30 mg/dL (<30 mg/dL) H 06/02/17 06:50 Urine Glucose (UA) Negative mg/dL (NEGATIVE) 06/02/17 06:50 Urine Ketones Negative mg/dL (NEGATIVE) 06/02/17 06:50 Urine Blood Negative (NEGATIVE) 06/02/17 06:50 Urine Nitrate Positive (NEGATIVE) H 06/02/17 06:50 Urine Bilirubin Large (NEGATIVE) H 06/02/17 06:50 Urine Urobilinogen 1.0 E.U./dL (<1 E.U./dL) H 06/02/17 06:50 Ur Leukocyte Esterase Small Ellie/uL (NEGATIVE) H 06/02/17 06:50 Urine RBC 0 - 2 /hpf (0-2) 06/02/17 06:50 Urine WBC 10 - 15 /hpf (0-6) 06/02/17 06:50 Ur Epithelial Cells 1 - 3 /hpf (0-5) 06/02/17 06:50 Urine Bacteria Few (NEG) 06/02/17 06:50 Hepatitis C Antibody Reactive (NEGATIVE) H 06/03/17 06:30 - Constitutional Appears: No Acute Distress - Head Exam Head Exam: ATRAUMATIC, NORMAL INSPECTION, NORMOCEPHALIC - Eye Exam Additional comments: Icteric sclera, PERRLA. - ENT Exam ENT Exam: Mucous Membranes Moist, Normal External Ear Exam - Neck Exam Neck Exam: Normal Inspection - Respiratory Exam Respiratory Exam: NORMAL BREATHING PATTERN - Cardiovascular Exam Cardiovascular Exam: +S1 (Normal.), +S2 (Normal.). absent: JVD - GI/Abdominal Exam GI & Abdominal Exam: Soft. absent: Distended - Rectal Exam Rectal Exam: Deferred - Exam Additional comments: Deferred. - Extremities Exam Extremities Exam: Normal Inspection - Back Exam Back Exam: NORMAL INSPECTION - Neurological Exam Neurological Exam: Altered Neuro motor strength exam: Left Upper Extremity: 3, Right Upper Extremity: 3, Left Lower Extremity: 3, Right Lower Extremity: 3 Additional comments: No facial droop noted. Speech-Slurred? - Psychiatric Exam Psychiatric exam: Depressed - Skin Skin Exam: Normal Color Assessment and Plan - Assessment and Plan (Free Text) Assessment: Lethargy. Confusion. Slurred speech. COPD. NIDDM. Hepatitis C S/P biliary stent. Jaundice. Elevated LFT's. Liver mass. Fibromyalgia. Pulmonary nodules. Plan: CBC,CMP,troponin, Ammonia, Mag,Phos,ABG stat.---> K 3.3 mEq.--> K-Dur 40 mEq po x 1. Cancel AM labs(CBC,CMP). EKG stat.-------> Tachycardia, no acute changes. CT head without contrast stat.-->No acute pathology. Neurology consultation after checking with PMD. Will inform PMD once all labs are back.
[2017-06-11] MEDS: Albuterol-Ipratrop 3 mg / 0.5 (3 ml) UD IH SCH ×4 (01:45→19:58)
[2017-06-11 02:02] LABS: BASO # 0.01 K/mm3 (0.0-2.0); BASO % 0.1 % (0.0-3.0); EOS # 0.1 (0.0-0.7); EOS % 1.1 % (1.5-5.0); GRAN # 9.97 (1.4-6.5); GRAN % 78.1 % (50.0-68.0); HEMOGLOBIN 10.8 gm/dL (12.0-16.0); LYMPH # 1.6 (1.2-3.4); LYMPH % 12.6 % (22.0-35.0); MEAN CELL VOLUME 80.8 fL (80.0-105.0); MEAN CORPUSCULAR HEMOGLOBIN 27.7 pg (25.0-35.0); MEAN CORPUSCULAR HGB CONC 34.3 g/dl (31.0-37.0); MEAN PLATELET VOLUME 9.7 fl (7.0-11.0); MONO % 8.1 % (1.0-6.0); PLATELET COUNT 324 10^3/uL (120.0-450.0); RED CELL DISTRIBUTION WIDTH 17.9 % (11.5-14.5); WHITE BLOOD COUNT 12.8 10^3/ul (4.5-11.0)
[2017-06-11 02:06] LABS: ALB/GLOB RATIO 0.8 (1.1-1.8); ALBUMIN 3.8 g/dL (3.0-4.8); ALT/SGPT 53 U/L (7-56); AST/SGOT 78 U/L (15-39); BLOOD UREA NITROGEN 27 mg/dL (7-21); GFR AFRICAN-AMERICAN 34; GFR NON-AFRICAN AMERICAN 28; MAGNESIUM 1.8 mg/dL (1.7-2.2)
[2017-06-11 02:33] LABS: ARTERIAL BLOOD GAS HCO3 19.9 mmol/L (21-28); ARTERIAL BLOOD GAS O2 SAT 100.6 % (95-98); ARTERIAL BLOOD GAS PCO2 30 mm/Hg (35-45); ARTERIAL BLOOD GAS PH 7.43 (7.35-7.45); ARTERIAL BLOOD GAS TCO2 20.8 mmol.L (22-28)
[2017-06-11 02:36] LABS: TROPONIN I < 0.01 ng/mL
[2017-06-11] MEDS ORDERED: Potassium Chloride 20 mEq ER Tab PO STA (03:04)
--- NOTE | 2017-06-11 03:27 | CT ---
EXAM: CT Head Without Intravenous Contrast CLINICAL HISTORY: The patient age is 66 years old and is female; Signs and symptoms; Altered mental status/memory loss and speech disturbance; Confusion or disorientation; Slurred speech; Additional info: Lethargy, confusion, slurred speech Facility exam id and description: Ct heads head w/o contrast TECHNIQUE: Axial computed tomography images of the head/brain without intravenous contrast. This CT exam was performed using one or more of the following dose reduction techniques: automated exposure control, adjustment of the mA and/or kV according to patient size, and/or use of iterative reconstruction technique. EXAM DATE/TIME: 06/11/2017 2:01 AM COMPARISON: No relevant prior studies available. FINDINGS: Brain: There are small periventricular foci of hypodensity, likely representing small vessel ischemic disease in a patient this age. The acuity of the white matter disease is indeterminate. The white-george differentiation is preserved demonstrating no acute territorial type infarct. There is mild prominence of the ventricles and sulci, compatible with atrophy. No acute intracranial hemorrhage is seen. Midline shift: There is no midline shift. Ventricles: See above. Bones/joints: The calvarium demonstrates no evidence for a depressed fracture. Soft tissues: No acute abnormality. Vasculature: There is atherosclerotic calcification of the cavernous internal carotid arteries. Sinuses: Unremarkable as visualized. No acute sinusitis. Mastoid air cells: No mastoid effusion. IMPRESSION: 1. No acute intracranial hemorrhage or acute territorial type infarct. 2. There are small periventricular foci of hypodensity, likely representing small vessel ischemic disease in a patient this age. 3. Mild atrophy. 4. If further evaluation is clinically indicated, an MRI of the brain is recommended.
[2017-06-11 03:44] LABS: ALB/GLOB RATIO 0.8 (1.1-1.8); ALBUMIN 3.8 g/dL (3.0-4.8); BILIRUBIN,DIRECT 8.5 mg/dL (0.0-0.4)
[2017-06-11] MEDS: Pantoprazole 40 mg EC Tab PO SCH (06:14)
[2017-06-11] MEDS: Insulin Reg-LOW-Coverage SC SCH ×5 (06:17→21:46)
[2017-06-11] MEDS: POLYETHYLENE GLYCOL 3350 17 GM/Dose PACKET PO SCH (09:47)
--- NOTE | 2017-06-11 14:47 | CARD ---
APPROVED REPORT EKG Measurement Heart [id number] <Conclusion> Normal sinus rhythm Prolonged QT NSSTW changes
--- NOTE | 2017-06-11 15:32 | CP.PCM.PN ---
<Amelia Wright - Last Filed: 06/11/17 15:30> Subjective - Date & Time of Evaluation Date of Evaluation: 06/11/17 Time of Evaluation: 10:10 - Subjective Subjective: seen and examined at the bedside earlier today. Overnight events were noted. Patient appears slightly drowsy but easily arousable and aware of surroundings. Patient states that she is sleepy. Requesting more food. Denies any nausea, vomiting, her abdominal pain is slightly better. Ammonia levels are noted. Head CT negative, MRI of the pelvis finally shows unremarkable findings. Objective - Vital Signs/Intake and Output Vital Signs (last 24 hours): Temp Pulse Resp BP Pulse Ox 98.2 F 80 20 116/74 94 L 06/10/17 16:00 06/11/17 09:46 06/10/17 16:00 06/11/17 09:46 06/10/17 16:00 Intake and Output: 06/11/17 06/11/17 06:59 18:59 Intake Total 1080 Balance 1080 - Medications Medications: Current Medications Albuterol/Ipratropium (Duoneb 3 Mg/0.5 Mg (3 Ml) Ud) 3 ml IH [id number] [facility] Last Admin: 06/11/17 13:24 Dose: Not Given Alprazolam (Xanax) 0.5 mg PO DAILY [facility] PRN Reason: Protocol Last Admin: 06/11/17 09:47 Dose: 0.5 mg Alprazolam (Xanax) 1 mg PO HS [facility] PRN Reason: Protocol Last Admin: 06/10/17 22:21 Dose: 1 mg Atorvastatin Calcium (Lipitor) 10 mg PO DIN [facility] Last Admin: 06/02/17 16:10 Dose: 10 mg Duloxetine HCl (Cymbalta) 30 mg PO DAILY [facility] Last Admin: 06/11/17 09:45 Dose: 30 mg Furosemide (Lasix) 40 mg PO DAILY [facility] Last Admin: 06/11/17 09:46 Dose: 40 mg Gemfibrozil (Lopid) 600 mg PO BID [facility] Last Admin: 06/11/17 09:46 Dose: 600 mg Glipizide (Glucotrol Xl) 10 mg PO DAILY [facility] Last Admin: 06/02/17 09:01 Dose: 10 mg Hydromorphone HCl (Dilaudid) 1 mg IVP Q4H PRN PRN Reason: Pain, severe (8-10) Last Admin: 06/10/17 13:50 Dose: 1 mg Dextrose/Sodium Chloride (Dextrose 5%/0.45% Ns 1000 Ml) 1,000 mls @ 60 mls/hr IV .[id number] [facility] Last Admin: 06/10/17 13:46 Dose: 60 mls/hr Insulin Human Regular (Humulin R Low) 0 units SC ACHS [facility] PRN Reason: Protocol Last Admin: 06/11/17 12:00 Dose: 1 units Lisinopril (Zestril) 10 mg PO DAILY [facility] Last Admin: 06/11/17 09:46 Dose: 10 mg Loratadine (Claritin) 10 mg PO DAILY [facility] Last Admin: 06/11/17 09:45 Dose: 10 mg Montelukast Sodium (Singulair) 10 mg PO HS [facility] Last Admin: 06/10/17 22:21 Dose: 10 mg Ondansetron HCl (Zofran Inj) 4 mg IVP Q6H PRN PRN Reason: Nausea/Vomiting Last Admin: 06/08/17 12:18 Dose: 4 mg Pantoprazole Sodium (Protonix Ec Tab) 40 mg PO 0600 [facility] Last Admin: 06/11/17 06:14 Dose: 40 mg Polyethylene Glycol (Miralax) 17 gm PO DAILY [facility] Last Admin: 06/11/17 09:47 Dose: Not Given Pregabalin (Lyrica) 75 mg PO DAILY [facility] Last Admin: 06/11/17 09:47 Dose: 75 mg Quetiapine Fumarate (Seroquel) 200 mg PO HS [facility] PRN Reason: Protocol Last Admin: 06/10/17 22:15 Dose: 200 mg Spironolactone (Aldactone) 25 mg PO DAILY [facility] Last Admin: 06/11/17 09:45 Dose: 25 mg - Labs Labs: 06/11/17 01:45 06/11/17 01:45 PT 12.0 Seconds (9.9-11.8) H 06/07/17 13:50 INR 1.11 (0.93-1.08) H 06/07/17 13:50 APTT 25.7 Seconds (23.7-30.8) 06/07/17 13:50 - Constitutional Appears: No Acute Distress - Head Exam Head Exam: NORMOCEPHALIC - Eye Exam Eye Exam: Scleral icterus - ENT Exam ENT Exam: Mucous Membranes Moist - Neck Exam Neck Exam: Normal Inspection - Respiratory Exam Respiratory Exam: Decreased Breath Sounds. absent: Rales, Wheezes, Respiratory Distress, NORMAL BREATHING PATTERN - GI/Abdominal Exam GI & Abdominal Exam: Soft, Tenderness, Normal Bowel Sounds. absent: Guarding, Rebound Additional comments: right upper quadrant dressing dry and intact, nontender - Extremities Exam Extremities Exam: Normal Capillary Refill. absent: Calf Tenderness, Pedal Edema - Neurological Exam Neurological Exam: Awake, Oriented x3 - Skin Skin Exam: Dry, Warm Assessment and Plan - Assessment and Plan (Free Text) Assessment: ASSESSMENT: Obstructive Jaundice with Pancreatic Mass, dilated ducts, attempted ERCP, s/p internalization stent Hepatitis C Elevated LFT Liver Mass Lung nodules DM type II COPD Fibromyalgia Constipation on miralax PLAN: diet advanced mod carb heart healthy trend lft, continue downward trend pain mgt continue GI prophylaxsis DVT prophylaxsis on IVF fluids D50.45NS @60cc/hr, discussed with nursing staff to discontinue IV fluids once patient is tolerating adequate oral intake. Seen and discussed w/ Dr. Merchant. <Thang Merchant V - Last Filed: 06/11/17 23:45> Objective - Vital Signs/Intake and Output Vital Signs (last 24 hours): Temp Pulse Resp BP Pulse Ox 98.2 F 98 H 19 121/76 95 06/11/17 16:00 06/11/17 16:00 06/11/17 16:00 06/11/17 16:00 06/11/17 16:00 - Medications Medications: Current Medications Albuterol/Ipratropium (Duoneb 3 Mg/0.5 Mg (3 Ml) Ud) 3 ml IH [id number] [facility] Last Admin: 06/11/17 19:58 Dose: Not Given Alprazolam (Xanax) 0.5 mg PO DAILY [facility] PRN Reason: Protocol Last Admin: 06/11/17 09:47 Dose: 0.5 mg Alprazolam (Xanax) 1 mg PO HS [facility] PRN Reason: Protocol Last Admin: 06/11/17 21:09 Dose: 1 mg Atorvastatin Calcium (Lipitor) 10 mg PO DIN [facility] Last Admin: 06/02/17 16:10 Dose: 10 mg Duloxetine HCl (Cymbalta) 30 mg PO DAILY [facility] Last Admin: 06/11/17 09:45 Dose: 30 mg Furosemide (Lasix) 40 mg PO DAILY [facility] Last Admin: 06/11/17 09:46 Dose: 40 mg Gemfibrozil (Lopid) 600 mg PO BID [facility] Last Admin: 06/11/17 17:45 Dose: 600 mg Glipizide (Glucotrol Xl) 10 mg PO DAILY [facility] Last Admin: 06/02/17 09:01 Dose: 10 mg Hydromorphone HCl (Dilaudid) 1 mg IVP Q4H PRN PRN Reason: Pain, severe (8-10) Last Admin: 06/11/17 21:13 Dose: 1 mg Insulin Human Regular (Humulin R Low) 0 units SC [facility] PRN Reason: Protocol Last Admin: 06/11/17 21:46 Dose: Not Given Lisinopril (Zestril) 10 mg PO DAILY [facility] Last Admin: 06/11/17 09:46 Dose: 10 mg Loratadine (Claritin) 10 mg PO DAILY [facility] Last Admin: 06/11/17 09:45 Dose: 10 mg Montelukast Sodium (Singulair) 10 mg PO [facility] Last Admin: 06/11/17 21:09 Dose: 10 mg Ondansetron HCl (Zofran Inj) 4 mg IVP Q6H PRN PRN Reason: Nausea/Vomiting Last Admin: 06/08/17 12:18 Dose: 4 mg Pantoprazole Sodium (Protonix Ec Tab) 40 mg PO 0600 [facility] Last Admin: 06/11/17 06:14 Dose: 40 mg Polyethylene Glycol (Miralax) 17 gm PO DAILY [facility] Last Admin: 06/11/17 09:47 Dose: Not Given Pregabalin (Lyrica) 75 mg PO DAILY [facility] Last Admin: 06/11/17 09:47 Dose: 75 mg Quetiapine Fumarate (Seroquel) 200 mg PO HS [facility] PRN Reason: Protocol Last Admin: 06/11/17 21:09 Dose: 200 mg Spironolactone (Aldactone) 25 mg PO DAILY [facility] Last Admin: 06/11/17 09:45 Dose: 25 mg - Labs Labs: 06/11/17 01:45 06/11/17 01:45 PT 12.0 Seconds (9.9-11.8) H 06/07/17 13:50 INR 1.11 (0.93-1.08) H 06/07/17 13:50 APTT 25.7 Seconds (23.7-30.8) 06/07/17 13:50 Attending/Attestation - Attestation I have personally seen and examined this patient.: Yes I have fully participated in the care of the patient.: Yes I have reviewed all pertinent clinical information, including history, physical exam and plan: Yes Notes (Text): p
[2017-06-11 17:02] VITALS: RESP 19; O2SAT 95
--- NOTE | 2017-06-11 19:46 | PN ---
PULMONARY PROGRESS NOTE DATE: 06/11/2017 REFERRING PHYSICIAN: Dr. Georgina Ferrara. SUBJECTIVE: He is sitting side of the bed, feels better. No headaches. No rhinitis. There is some abdominal pain. No nausea, no dysuria, no leg pain, and no leg swelling. PHYSICAL EXAMINATION: GENERAL: No acute distress. VITAL SIGNS: Temperature is 98, heart rate 80, respiratory rate is 20, blood pressure 116/74, pulse ox is 94% on nasal cannula. HEENT: Moist mucous membranes. Crowded airway. NECK: Supple. No JVD. LUNGS: Has a fair air flow with fair rhonchi. HEART: S1 and S1. ABDOMEN: Soft. Mild right upper quadrant tenderness. EXTREMITIES: There is no edema. NEUROLOGIC: Awake and alert and follow simple command. MEDICATIONS: She is on Aldactone 25 mg daily, Claritin 10 mg daily, Cymbalta 30 mg daily, IV fluid D5 half normal saline 60 mL per hour, Dilaudid 1 mg IV q.4h. p.r.n., DuoNeb q.6h., glipizide XL 10 mg daily, insulin coverage, Lasix 40 mg daily, Lipitor 10 mg daily, Lopid 600 mg twice a day, Lyrica 75 mg daily, MiraLAX 17 g daily, Protonix 40 mg daily, Seroquel 200 mg bedtime, Singulair 10 mg daily, Xanax 0.5 mg daily, Zestril 10 mg daily and Zofran p.r.n. basis. LABORATORY DATA: Shows hemoglobin 10.8, hematocrit 31.5, WBC 12.8 and platelet is 324. She had ABGs done, which shows pH 7.43, pCO2 30, O2 164 on nasal cannula. Sodium 135, potassium 3.3, chloride 99, bicarbonate 19, BUN 27, creatinine 1.8, glucose 183, calcium 10.0, phosphorus 4.8, magnesium 1.8, total bilirubin 9.5. AST 78, ALT 53, alkaline phosphatase is 269 total protein 8.5, albumin 3.8. Stool for C. diff is negative. CAT scan of the head is done, which shows no acute intracranial hemorrhage or acute territorial type infarct error. There are some mild periventricular foci of density representing small vessel ischemic diseases, and mild atrophy. 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 Discontinue diuretics. Continue IV fluid. Encourage p.o. intake, bronchodilator, sleep apnea precaution, gastric and DVT prophylaxis. Follow up labs in the morning. We will follow with you. Linnea Stephen MD
[2017-06-11] MEDS: HYDROmorphone 1 mg/ml ISec IVP PRN (21:13)
--- NOTE | 2017-06-11 23:40 | PN ---
SUBJECTIVE: The patient seen and examined at the bedside, looking comfortable. Having her dinner. No nausea, vomiting, diarrhea. No hematuria, no hematochezia. No swelling of the legs. No chest pain or palpitation. No headache, no dizziness. I was reading Dr. Lindo's notes. The patient today has episodes of confusion, altered mental status, mainly it was effect of pain medications, but when I saw the patient, she was looking comfortable. As per patient, even she does not have abdominal pain. No duodenitis. No swelling of the legs. PHYSICAL EXAMINATION VITAL SIGNS: Temperature 98.2, pulse 98, blood pressure 121/76, respiratory rate is 19. HEENT: Head is normocephalic and atraumatic. Eyes; PERRLA. Extraocular muscles intact. Conjunctivae clear. Nose is patent. Mucus membranes moist. NECK: Supple. No carotid bruits. No JVD or thyromegaly. CHEST: Bilaterally symmetrical. HEART: S1 and S2 positive. LUNGS: Clear to auscultation. ABDOMEN: Soft. Bowel sounds present. No organomegaly. EXTREMITIES: No edema. No cyanosis. NEUROLOGIC: The patient is awake and alert. Moving all 4 extremities. No focal deficit. MEDICATIONS: Aldactone, loratadine, Cymbalta, Dilaudid, Glucotrol, insulin, Lasix, albuterol. LABORATORY DATA: White blood cell 12.8, hemoglobin 10.8, hematocrit 31.5, platelets 324. Glucose 225, 161, 162, ASSESSMENT AND PLAN: The patient is a 66-year-old lady went for CAT scan of the head due to episode of altered mental status reviewed by me. MRI of the pelvis done, finally shows unremarkable findings. Obstructive jaundice with pancreatic mass, dilated duct, attempted to ERCP but failed status post internalization stent, now she is improving. Her jaundice is getting better. Pain has gone. History of hepatitis C, abnormal liver function test, trending down. Liver mass, lung nodules, pancreatic mass, diabetes mellitus type 2, non-insulin requiring, not controlled, chronic obstructive pulmonary disease, fibromyalgia, constipation, on MiraLax. The patient got solid. Advanced diet as tolerated. Pain is getting undercontrolled. Gastrointestinal and deep venous thrombosis prophylaxis. Getting IV fluids. The patient has cancer with metastasis to the liver and lungs, looks like adenocarcinoma, but we are not sure about the primary that is why we have oncology, Dr. Navarrete, on the case. Length of time discussion done with Dr. Merchant. He will talk to Dr. Navarrete also. Even I text messaged to Dr. Navarrete, waiting for his input. We will follow up. Georgina Ferrara MD MTDD
[2017-06-12] MEDS: Albuterol-Ipratrop 3 mg / 0.5 (3 ml) UD IH SCH ×2 (02:32→07:23)
[2017-06-12] MEDS: Pantoprazole 40 mg EC Tab PO SCH (06:21)
[2017-06-12 06:57] LABS: HEMOGLOBIN 10.3 gm/dL (12.0-16.0); MEAN CELL VOLUME 81.6 fL (80.0-105.0); MEAN CORPUSCULAR HEMOGLOBIN 27.4 pg (25.0-35.0); MEAN CORPUSCULAR HGB CONC 33.6 g/dl (31.0-37.0); MEAN PLATELET VOLUME 9.7 fl (7.0-11.0); RBC 3.76 10^6/uL (3.5-6.1); RED CELL DISTRIBUTION WIDTH 18.1 % (11.5-14.5); WHITE BLOOD COUNT 9.5 10^3/ul (4.5-11.0)
[2017-06-12 07:13] LABS: CALCIUM 9.9 mg/dL (8.4-10.5)
[2017-06-12 07:15] LABS: ALB/GLOB RATIO 0.8 (1.1-1.8); ALBUMIN 3.8 g/dL (3.0-4.8)
[2017-06-12] MEDS: Insulin Reg-LOW-Coverage SC SCH (08:28)
[2017-06-12 08:37] VITALS: BP 116/76; PULSE 86; TEMP 97.6
[2017-06-12] MEDS: POLYETHYLENE GLYCOL 3350 17 GM/Dose PACKET PO SCH (09:29)
--- NOTE | 2017-06-12 15:50 | CP.PCM.DIS ---
Provider - Provider Date of Admission: 06/01/17 18:27 Attending physician: Georgina Ferrara MD Primary care physician: NO PRIMARY CARE PROVIDER Time Spent in preparation of Discharge (in minutes): 60 Diagnosis - Discharge Diagnosis (1) Hematuria Status: Acute (2) Jaundice Status: Acute (3) Abdominal pain Status: Acute (4) Benzodiazepine overdose Status: Acute (5) Diverticulitis Status: Acute (6) Dizziness Status: Acute (7) Gross hematuria Status: Acute (8) Liver lesion Status: Acute (9) Malignancies Status: Acute (10) Malignant tumor head pancreas Status: Acute (11) Overdose Status: Acute Hospital Course - Lab Results Lab Results: Micro Results 06/11/17 08:00 Stool C. difficile Antigen & Toxin A,B (M - Final Most Recent Lab Values WBC 9.5 10^3/ul (4.5-11.0) D 06/12/17 06:30 RBC 3.76 10^6/uL (3.5-6.1) 06/12/17 06:30 Hgb 10.3 gm/dL (12.0-16.0) L 06/12/17 06:30 Hct 30.7 % (36.0-48.0) L 06/12/17 06:30 MCV 81.6 fL (80.0-105.0) 06/12/17 06:30 MCH 27.4 pg (25.0-35.0) 06/12/17 06:30 MCHC 33.6 g/dl (31.0-37.0) 06/12/17 06:30 RDW 18.1 % (11.5-14.5) H 06/12/17 06:30 Plt Count 374 10^3/uL (120.0-450.0) 06/12/17 06:30 MPV 9.7 fl (7.0-11.0) 06/12/17 06:30 Gran % 78.1 % (50.0-68.0) H 06/11/17 01:45 Lymph % (Auto) 12.6 % (22.0-35.0) L 06/11/17 01:45 [place] % (Auto) 8.1 % (1.0-6.0) H 06/11/17 01:45 Eos % (Auto) 1.1 % (1.5-5.0) L 06/11/17 01:45 Baso % (Auto) 0.1 % (0.0-3.0) 06/11/17 01:45 Gran # 9.97 (1.4-6.5) H 06/11/17 01:45 Lymph # 1.6 (1.2-3.4) 06/11/17 01:45 [place] # 1.0 (0.1-0.6) H 06/11/17 01:45 Eos # 0.1 (0.0-0.7) 06/11/17 01:45 Baso # 0.01 K/mm3 (0.0-2.0) 06/11/17 01:45 PT 12.0 Seconds (9.9-11.8) H 06/07/17 13:50 INR 1.11 (0.93-1.08) H 06/07/17 13:50 APTT 25.7 Seconds (23.7-30.8) 06/07/17 13:50 pCO2 30 mm/Hg (35-45) L 06/11/17 02:30 pO2 164.0 mm/Hg (80-100) H 06/11/17 02:30 HCO3 19.9 mmol/L (21-28) L 06/11/17 02:30 ABG pH 7.43 (7.35-7.45) 06/11/17 02:30 ABG Total CO2 20.8 mmol.L (22-28) L 06/11/17 02:30 ABG O2 Saturation 100.6 % (95-98) H 06/11/17 02:30 ABG Base Excess -3.3 mmol/L (-2.0-3.0) L 06/11/17 02:30 ABG Potassium 2.8 mmol/L (3.6-5.2) L 06/11/17 02:30 Sodium 135.0 mmol/L (132-148) 06/11/17 02:30 Chloride 106.0 mmol/L (98-107) 06/11/17 02:30 Glucose 168 mg/dl (65-105) H 06/11/17 02:30 Lactate 0.7 mmol/L (0.7-2.1) 06/11/17 02:30 FiO2 36.0 % 06/11/17 02:30 Sodium 140 mmol/L (132-148) 06/12/17 06:30 Potassium 3.6 mmol/L (3.6-5.0) 06/12/17 06:30 Chloride 103 mmol/L (98-107) 06/12/17 06:30 Carbon Dioxide 24 mmol/L (21-33) 06/12/17 06:30 Anion Gap 17 (10-20) 06/12/17 06:30 BUN 26 mg/dL (7-21) H 06/12/17 06:30 Creatinine 1.2 mg/dL (0.5-1.4) 06/12/17 06:30 Est GFR ( Amer) 54 06/12/17 06:30 Est GFR (Non-Af Amer) 45 06/12/17 06:30 POC Glucose (mg/dL) 224 mg/dL (65-110) H 06/12/17 07:36 Random Glucose 150 mg/dL (70-110) H 06/12/17 06:30 Calcium 9.9 mg/dL (8.4-10.5) 06/12/17 06:30 Phosphorus 4.8 mg/dL (2.5-4.5) H 06/11/17 01:45 Magnesium 1.8 mg/dL (1.7-2.2) 06/11/17 01:45 Total Bilirubin 6.7 mg/dL (0.2-1.3) H 06/12/17 06:30 Direct Bilirubin 8.5 mg/dL (0.0-0.4) H 06/11/17 01:45 AST 70 U/L (15-39) H 06/12/17 06:30 ALT 46 U/L (7-56) 06/12/17 06:30 Alkaline Phosphatase 256 U/L (38-133) H 06/12/17 06:30 Ammonia 25 umol/L (9-33) 06/11/17 01:45 Troponin I < 0.01 ng/mL 06/11/17 01:45 Total Protein 8.3 g/dL (5.8-8.3) 06/12/17 06:30 Albumin 3.8 g/dL (3.0-4.8) 06/12/17 06:30 Globulin 4.6 gm/dL 06/12/17 06:30 Albumin/Globulin Ratio 0.8 (1.1-1.8) L 06/12/17 06:30 Amylase 169 U/L (35-125) H 06/05/17 06:30 Alpha Fetoprotein 6.1 ng/mL (0.0-7.5) 06/03/17 06:30 Carcinoembryonic Ag 4.5 ng/mL (0.0-3.0) H 06/03/17 06:30 CA 19-9 Antigen 40.5 U/mL (0-37) H D 06/03/17 06:30 CA 125 Antigen 11.1 U/mL (0-35) 06/03/17 06:30 Arterial Blood Potassium 2.8 mmol/L (3.6-5.2) L 06/11/17 02:30 Urine Color Brown (YELLOW) 06/02/17 06:50 Urine Appearance Sl cloudy (CLEAR) 06/02/17 06:50 Urine pH 6.0 (4.7-8.0) 06/02/17 06:50 Ur Specific [place] 1.025 (1.005-1.035) 06/02/17 06:50 Urine Protein 30 mg/dL (<30 mg/dL) H 06/02/17 06:50 Urine Glucose (UA) Negative mg/dL (NEGATIVE) 06/02/17 06:50 Urine Ketones Negative mg/dL (NEGATIVE) 06/02/17 06:50 Urine Blood Negative (NEGATIVE) 06/02/17 06:50 Urine Nitrate Positive (NEGATIVE) H 06/02/17 06:50 Urine Bilirubin Large (NEGATIVE) H 06/02/17 06:50 Urine Urobilinogen 1.0 E.U./dL (<1 E.U./dL) H 06/02/17 06:50 Ur Leukocyte Esterase Small Ellie/uL (NEGATIVE) H 06/02/17 06:50 Urine RBC 0 - 2 /hpf (0-2) 06/02/17 06:50 Urine WBC 10 - 15 /hpf (0-6) 06/02/17 06:50 Ur Epithelial Cells 1 - 3 /hpf (0-5) 06/02/17 06:50 Urine Bacteria Few (NEG) 06/02/17 06:50 Hepatitis C Antibody Reactive (NEGATIVE) H 06/03/17 06:30 - Hospital Course Hospital Course: 66 F with PMH of Hepatitis C, liver mass, lung nodules, lymph node, peripancreatic/celiac lymph node biopsy suspicious for neoplasm presents to ED for r flank pain, scleral icterus, and hematuria. Patient states that flank pain and hematuria has been going on for several days while the scleral icterus started today. Patient has moderate pain in flank. She has had minimal urinary output but states it is dark brown. Patient had a port placed on 05/17/17 and was suppose to start chemotherapy tomorrow. Patient reports associated nausea/ vomiting.she had Obstructive Jaundice with Pancreatic Mass, dilated ducts, attempted ERCP, s/p internalization stent Hepatitis C Elevated LFT Liver Mass Lung nodules DM type II COPD Fibromyalgia Constipation on miralax PLAN: diet advanced mod carb heart healthy trend lft, continue downward trend pain mgt continue GI prophylaxsis DVT prophylaxsis was on IVF fluids D50.45NS @60cc/hr, discussed with nursing staff ,d/d with dr Baker , dr pride and dr lei ricks , treatment plan made Discharge Exam - Head Exam Head Exam: NORMOCEPHALIC - Eye Exam Eye Exam: EOMI, Normal appearance, PERRL Pupil Exam: NORMAL ACCOMODATION, PERRL - GI/Abdominal Exam GI & Abdominal Exam: Normal Bowel Sounds - Rectal Exam Rectal Exam: NORMAL INSPECTION - Exam Exam: Circumcision, NORMAL INSPECTION External exam: NORMAL EXTERNAL EXAM Speculum exam: NORMAL SPECULUM EXAM Bimanual exam: NORMAL BIMANUAL EXAM - Neurological Exam Neurological exam: Alert, CN II-XII Intact, Normal Gait, Oriented x3, Reflexes Normal - Psychiatric Exam Psychiatric exam: Normal Affect, Normal Mood - Skin Skin Exam: Dry, Intact, Normal Color, Warm Discharge Plan - Follow Up Plan Condition: STABLE Disposition: HOME/ ROUTINE Instructions: Pancreatic Cancer (DC), Acute Hematuria (DC), Endoscopic Biliary Stenting (DC) Additional Instructions: PT instructed to see Oncologist on Wednesday06/14/[address] Ferrara on Wednesday06/15/17 at Noon. PT instructed to continue home medications as ordered. Referrals: Georgina Ferrara MD [Staff Provider] - Praneeth Navarrete MD [Staff Provider] -
--- NOTE | 2017-06-14 20:01 | VASCULAR ---
PROCEDURE: 1. Cholangiogram 2. Internal biliary stent placement and dilatation HISTORY: Biliary obstruction and jaundice. Recent internal/external biliary drain. Metastatic adenocarcinoma in the upper abdomen on the EUS/biopsy PHYSICIAN(S): Loi Zamudio MD. TECHNIQUE: The relative risks and indications of the procedure were explained to the patient and consent obtained. The patient was placed supine on the arteriogram table in the internal external biliary drain prepped and draped usual sterile fashion. Conscious sedation monitoring were provided throughout the procedure. The skin soft tissues were anesthetized 1 percent xylocaine. Contrast was injected and a cholangiogram performed. This revealed that the intrahepatic biliary system was decompressed. 0.035 glidewire was advanced through the drain and coiled in the duodenum. Exchange is made for a 0.035 support guidewire. A 9 Malagasy by 25 cm sheath was placed in the proximal biliary system above the obstruction. An 8 mm by 8 cm biliary stent graft was carefully positioned in the distal CBD. It was deployed without difficulty. The stent and bile duct were then dilated with an 8 mm x 8 cm angioplasty balloon. Brisk antegrade flow was demonstrated without residual narrowing. The catheter was not placed. The patient tolerated the procedure well. FINDINGS: There is a malignant obstruction of the common bile duct distally. Successful placement of an 8 mm x 8 cm biliary stent graft was performed. IMPRESSION: 1.Malignant obstruction of the distal CBD below the cystic duct insertion. 2. Successful CBD dilatation and internal stent graft placement as described above. An 8 mm x 8 cm stent graft was placed and dilated.
--- NOTE | 2017-06-14 23:44 | CP.PCM.PN ---
Subjective - Date & Time of Evaluation Date of Evaluation: 06/06/17 Time of Evaluation: 15:30 - Subjective Subjective: p Objective - Vital Signs/Intake and Output Vital Signs (last 24 hours): Temp Pulse Resp BP Pulse Ox 98.7 F 89 20 132/96 H 94 L 06/06/17 16:29 06/06/17 16:29 06/06/17 16:29 06/06/17 16:29 06/06/17 16:29 Intake and Output: 06/06/17 06/07/17 18:59 06:59 Intake Total 720 600 Balance 720 600 - Medications Medications: Current Medications Albuterol/Ipratropium (Duoneb 3 Mg/0.5 Mg (3 Ml) Ud) [id number] [facility] Last Admin: 06/06/17 20:33 Dose: 3 ml Alprazolam (Xanax) 0.5 mg PO DAILY [facility] PRN Reason: Protocol Last Admin: 06/06/17 09:11 Dose: 0.5 mg Alprazolam (Xanax) 1 mg PO HS [facility] PRN Reason: Protocol Last Admin: 06/06/17 21:39 Dose: 1 mg Atorvastatin Calcium (Lipitor) 10 mg PO DIN [facility] Last Admin: 06/02/17 16:10 Dose: 10 mg Duloxetine HCl (Cymbalta) [address] [facility] Last Admin: 06/06/17 09:06 Dose: 30 mg Enoxaparin Sodium (Lovenox) 40 mg SC DAILY [facility] PRN Reason: Protocol Last Admin: 06/06/17 09:07 Dose: 40 mg Furosemide (Lasix) [address] [facility] Last Admin: 06/06/17 09:06 Dose: 40 mg Gemfibrozil (Lopid) 600 mg PO BID [facility] Last Admin: 06/06/17 17:07 Dose: 600 mg Glipizide (Glucotrol Xl) [address] [facility] Last Admin: 06/02/17 09:01 Dose: 10 mg Hydromorphone HCl (Dilaudid) 1 mg IVP Q4H PRN PRN Reason: Pain, severe (8-10) Last Admin: 06/06/17 20:07 Dose: 1 mg Insulin Human Regular (Humulin R Low) 0 units SC ACHS [facility] PRN Reason: Protocol Last Admin: 06/06/17 21:46 Dose: Not Given Lisinopril (Zestril) [address] [facility] Last Admin: 06/06/17 09:05 Dose: 10 mg Loratadine (Claritin) [address] [facility] Last Admin: 06/06/17 09:06 Dose: 10 mg Montelukast Sodium (Singulair) [address] [facility] Last Admin: 06/06/17 21:40 Dose: 10 mg Non-Formulary Medication (Nicotine [Nicotrol]) [address] [facility] Last Admin: 06/06/17 19:30 Dose: Not Given Ondansetron HCl (Zofran Inj) 4 mg IVP Q6H PRN PRN Reason: Nausea/Vomiting Last Admin: 06/06/17 20:07 Dose: 4 mg Pantoprazole Sodium (Protonix Ec Tab) [address] [facility] Last Admin: 06/06/17 05:02 Dose: 40 mg Polyethylene Glycol (Miralax) [address] [facility] Last Admin: 06/06/17 09:07 Dose: 17 gm Pregabalin (Lyrica) [address] [facility] Last Admin: 06/06/17 09:06 Dose: 75 mg Quetiapine Fumarate (Seroquel) [address] [facility] PRN Reason: Protocol Last Admin: 06/06/17 21:40 Dose: 200 mg Spironolactone (Aldactone) [address] [facility] Last Admin: 06/06/17 09:06 Dose: 25 mg - Labs Labs: 06/05/17 06:30 06/05/17 06:30 PT 12.0 Seconds (9.9-11.8) H 06/04/17 08:50 INR 1.11 (0.93-1.08) H 06/04/17 08:50 APTT 26.8 Seconds (23.7-30.8) 06/04/17 08:50 Assessment and Plan - Assessment and Plan (Free Text) Assessment: p
--- NOTE | 2017-06-14 23:44 | CP.PCM.PN ---
Objective - Vital Signs/Intake and Output Vital Signs (last 24 hours): Temp Pulse Resp BP Pulse Ox 98.4 F 96 H 18 138/95 H 98 06/04/17 17:20 06/04/17 17:20 06/04/17 17:20 06/04/17 17:20 06/04/17 17:20 Intake and Output: 06/04/17 06/05/17 18:59 06:59 Intake Total 0 Balance 0 - Medications Medications: Current Medications Albuterol/Ipratropium (Duoneb 3 Mg/0.5 Mg (3 Ml) Ud) 3 ml IH [id number] Last Admin: 06/04/17 19:40 Dose: 3 ml Alprazolam (Xanax) 0.5 mg PO DAILY [facility] PRN Reason: Protocol Last Admin: 06/04/17 09:44 Dose: 0.5 mg Alprazolam (Xanax) 1 mg PO HS [facility] PRN Reason: Protocol Last Admin: 06/04/17 22:43 Dose: 1 mg Atorvastatin Calcium (Lipitor) 10 mg PO DIN [facility] Last Admin: 06/02/17 16:10 Dose: 10 mg Duloxetine HCl (Cymbalta) 30 mg PO DAILY [facility] Last Admin: 06/04/17 09:43 Dose: 30 mg Enoxaparin Sodium (Lovenox) 40 mg SC DAILY [facility] PRN Reason: Protocol Last Admin: 06/04/17 09:44 Dose: Not Given Furosemide (Lasix) 40 mg PO DAILY [facility] Last Admin: 06/04/17 09:43 Dose: 40 mg Gemfibrozil (Lopid) 600 mg PO BID [facility] Last Admin: 06/04/17 18:11 Dose: Not Given Glipizide (Glucotrol Xl) 10 mg PO DAILY [facility] Last Admin: 06/02/17 09:01 Dose: 10 mg Hydromorphone HCl (Dilaudid) 0.5 mg IVP Q4H PRN PRN Reason: Pain, moderate (4-7) Last Admin: 06/04/17 20:27 Dose: 0.5 mg Dextrose/Sodium Chloride (Dextrose 5%/0.45% Ns 1000 Ml) 1,000 mls @ 60 mls/hr IV .[id number] [facility] Last Admin: 06/04/17 09:44 Dose: 60 mls/hr Sodium Chloride (Sodium Chloride 0.9%) 1,000 mls @ 100 mls/hr IV .Q10H [facility] Insulin Human Regular (Humulin R Low) 0 units SC ACHS [facility] PRN Reason: Protocol Last Admin: 06/04/17 16:33 Dose: Not Given Lisinopril (Zestril) 10 mg PO DAILY [facility] Last Admin: 06/04/17 09:44 Dose: 10 mg Loratadine (Claritin) 10 mg PO DAILY [facility] Last Admin: 06/04/17 09:45 Dose: Not Given Montelukast Sodium (Singulair) 10 mg PO HS [facility] Last Admin: 06/04/17 21:44 Dose: 10 mg Non-Formulary Medication (Nicotine [Nicotrol]) 10 mg IH Q6 [facility] Last Admin: 06/04/17 17:31 Dose: Not Given Ondansetron HCl (Zofran Inj) 4 mg IVP Q6H PRN PRN Reason: Nausea/Vomiting Last Admin: 06/04/17 08:36 Dose: 4 mg Pantoprazole Sodium (Protonix Ec Tab) 40 mg PO 0600 [facility] Last Admin: 06/04/17 05:44 Dose: 40 mg Polyethylene Glycol (Miralax) 17 gm PO DAILY [facility] Last Admin: 06/04/17 10:27 Dose: Not Given Pregabalin (Lyrica) 75 mg PO DAILY [facility] Last Admin: 06/04/17 09:43 Dose: 75 mg Quetiapine Fumarate (Seroquel) 200 mg PO [facility] PRN Reason: Protocol Last Admin: 06/04/17 21:43 Dose: 200 mg Spironolactone (Aldactone) 25 mg PO DAILY [facility] Last Admin: 06/04/17 09:43 Dose: 25 mg - Labs Labs: 06/04/17 06:30 06/03/17 06:30 PT 12.0 Seconds (9.9-11.8) H 06/04/17 08:50 INR 1.11 (0.93-1.08) H 06/04/17 08:50 APTT 26.8 Seconds (23.7-30.8) 06/04/17 08:50 Assessment and Plan - Assessment and Plan (Free Text) Assessment: t
== END 2017-06-12 12:11 | disposition home or self-care (01) | DRG 374 ==
LOC: ED 16:41 → ERH 18:27 → 3RSO 22:10
PROVIDERS: ADMIT Internal Medicine; ATTEND Internal Medicine
PROC: 0DJ08ZZ Inspection of Upper Intestinal Tract, Via Natural or Artificial Opening Endoscopic (ICD-10-PCS; 2017-06-04)
PROC: 0F9930Z Drainage of Common Bile Duct with Drainage Device, Percutaneous Approach (ICD-10-PCS; 2017-06-07)
PROC: BF10YZZ Fluoroscopy of Bile Ducts using Other Contrast (ICD-10-PCS; 2017-06-07)
PROC: 0F793DZ Dilation of Common Bile Duct with Intraluminal Device, Percutaneous Approach (ICD-10-PCS; principal; 2017-06-10)
PROC: BF10YZZ Fluoroscopy of Bile Ducts using Other Contrast (ICD-10-PCS; 2017-06-10)
DX: C78.89 Secondary malignant neoplasm of other digestive organs (principal); K83.1 Obstruction of bile duct; C78.7 Secondary malignant neoplasm of liver and intrahepatic bile duct; C78.00 Secondary malignant neoplasm of unspecified lung; C80.1 Malignant (primary) neoplasm, unspecified; E11.65 Type 2 diabetes mellitus with hyperglycemia; N39.0 Urinary tract infection, site not specified; K21.9 Gastro-esophageal reflux disease without esophagitis; I10 Essential (primary) hypertension; J44.9 Chronic obstructive pulmonary disease, unspecified; R31.0 Gross hematuria; B19.20 Unspecified viral hepatitis C without hepatic coma; K59.00 Constipation, unspecified; M79.7 Fibromyalgia; G47.33 Obstructive sleep apnea (adult) (pediatric); M06.9 Rheumatoid arthritis, unspecified; E87.6 Hypokalemia; R80.9 Proteinuria, unspecified; F17.210 Nicotine dependence, cigarettes, uncomplicated; F10.10 Alcohol abuse, uncomplicated; Z86.73 Personal history of transient ischemic attack (TIA), and cerebral infarction without residual deficits; Z90.49 Acquired absence of other specified parts of digestive tract; Z87.891 Personal history of nicotine dependence; Z79.84 Long term (current) use of oral hypoglycemic drugs

== ENCOUNTER 2017-06-22 01:58 | Inpatient (IN) | payer MEDICARE, OTHER ==
[2017-06-22 02:02] VITALS: BMI 35.7
[2017-06-22] MEDS ORDERED: Morphine 2 mg/ml ISec IVP STA (02:09)
[2017-06-22] MEDS ORDERED: Sodium Chloride 0.9% 1,000 ML IV STA (02:09)
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
[2017-06-22 03:25] LABS: HEMATOCRIT 34.6 % (36.0-48.0); MEAN CELL VOLUME 83.4 fl (80.0-105.0); MEAN CORPUSCULAR HEMOGLOBIN 27.2 pg (25.0-35.0); MEAN CORPUSCULAR HGB CONC 32.7 g/dl (31.0-37.0); MEAN PLATELET VOLUME 9.7 fl (7.0-11.0); RED CELL DISTRIBUTION WIDTH 16.8 % (11.5-14.5); WHITE BLOOD COUNT 12.8 10^3/ul (4.5-11.0)
[2017-06-22 03:28] LABS: ALKALINE PHOSPHATASE 192 U/L (38-133); ALT/SGPT 41 U/L (7-56); AST/SGOT 63 U/L (15-39); BLOOD UREA NITROGEN 12 mg/dL (7-21); CALCIUM 9.3 mg/dL (8.4-10.5); CARBON DIOXIDE 23 mmol/L (21-33); CHLORIDE 106 mmol/L (95-110); GFR AFRICAN-AMERICAN > 60; GLUCOSE,RANDOM 99 mg/dL (70-110); LIPASE 396 U/L (23-300); POTASSIUM 3.7 mmol/L (3.6-5.0); SODIUM 139 mmol/L (132-148); TOTAL PROTEIN 7.7 g/dL (5.8-8.3)
[2017-06-22] MEDS ORDERED: Morphine 4 mg/ml ISec IVP STA (04:08)
--- NOTE | 2017-06-22 06:35 | CT ---
EXAM: CT Abdomen and Pelvis Without Intravenous Contrast EXAM DATE/TIME: 06/22/2017 2:08 AM CLINICAL HISTORY: 66 years old, female; Pain; Abdominal pain; Generalized TECHNIQUE: Axial computed tomography images of the abdomen and pelvis without intravenous contrast. All CT scans at this facility use one or more dose reduction techniques, viz.: automated exposure control; ma/kV adjustment per patient size (including targeted exams where dose is matched to indication; i.e. head); or iterative reconstruction technique. Coronal and sagittal reformatted images were created and reviewed. COMPARISON: CT - ABD PELVIS W/O PO OR IV CONT 06/01/2017 10:38:31 PM FINDINGS: Lower thorax: Multiple noncalcified mass is again identified in both lower lobes and right middle. The largest of these lesions measure about 3 cm. In subsegment atelectasis right lower lobe and discoid atelectasis lingular segment. Two right cardiophrenic angle nodes of up to 2.5 cm. ABDOMEN: Liver: Multiple ill-defined hypodense hepatic lesions. Dominant inferior right lobe estimated 4.5 cm. The rest range from 5 mm to 2 cm. Gallbladder and bile ducts: Interval placement of biliary stent. Pneumobilia. No calcified gallstone. Prominent gallbladder wall, probably secondary to partially contracted state. Pancreas: Mass in head and neck of pancreas, estimated about 6 cm. No ductal dilation. Encasement of portal vein. Spleen: Unremarkable. No splenomegaly. Adrenals: Unremarkable. No mass. Kidneys and ureters: Unremarkable. No obstructing stones. No hydronephrosis. Stomach and bowel: Partial right colectomy, enterocolonic anastomosis right mid abdomen. Colonic diverticuli, no acute diverticulitis. No dilatation of small or large bowel. Appendix: See above. PELVIS: Bladder: Unremarkable. No stones. Reproductive: Calcified fibroid. ABDOMEN and PELVIS: Intraperitoneal space: Unremarkable. No free air. No significant fluid collection. Bones/joints: No osteolytic or blastic lesion. Soft tissues: Unremarkable. Vasculature: Unremarkable. No abdominal aortic aneurysm. Lymph nodes: Large node anterior to pancreas or bowel 3.9 x 5.8 cm. Small gastrohepatic nodes of about 1 cm. Right retrocaval node of 2.5 cm. IMPRESSION: 1. Redemonstration of mass in head of pancreas with hepatic, pulmonary and arlet metastases. No significant change. 2. Interval placement of biliary stent. Decompression of gallbladder.
[2017-06-22] MEDS ORDERED: HYDROmorphone 0.5 mg/0.5 ml ISec IVP PRN (08:39)
--- NOTE | 2017-06-22 09:00 | RAD ---
HISTORY: abdominal pain COMPARISON: 01/30/2016 FINDINGS: LUNGS: Multiple pulmonary nodules are seen. Right-sided Port-A-Cath PLEURA: No significant pleural effusion identified, no pneumothorax apparent. CARDIOVASCULAR: Normal. OSSEOUS STRUCTURES: No significant abnormalities. VISUALIZED UPPER ABDOMEN: Normal. OTHER FINDINGS: None. IMPRESSION: Multiple pulmonary nodules
[2017-06-22] MEDS: GlipiZIDE 10 mg SR Tab PO SCH (09:12)
[2017-06-22] MEDS: NICOTROL INH SCH ×3 (09:20→21:26)
[2017-06-22] MEDS: Pantoprazole 40 mg EC Tab PO SCH (10:36)
--- NOTE | 2017-06-22 11:46 | CARD ---
APPROVED REPORT EKG Measurement Heart [id number] <Conclusion> Sinus rhythm with premature atrial complexes Nonspecific T wave abnormality Prolonged QT Abnormal ECG
[2017-06-22] MEDS: Insulin Reg-LOW-Coverage SC SCH ×3 (11:51→21:26)
[2017-06-22] MEDS ORDERED: NICOTINE 10 MG IH SCH (12:00)
[2017-06-22] MEDS: HYDROmorphone 0.5 mg/0.5 ml ISec IVP PRN ×3 (12:27→21:30)
[2017-06-22] MEDS: Albuterol-Ipratrop 3 mg / 0.5 (3 ml) UD IH SCH ×2 (13:37→19:45)
--- NOTE | 2017-06-22 14:06 | CP.PCM.PN ---
Subjective - Date & Time of Evaluation Date of Evaluation: 06/22/17 Time of Evaluation: 14:06 - Subjective Subjective: will dicate. will start chemo treatments Objective - Vital Signs/Intake and Output Vital Signs (last 24 hours): Temp Pulse Resp BP Pulse Ox 98.2 F 88 18 118/83 98 06/22/17 08:44 06/22/17 13:42 06/22/17 08:44 06/22/17 09:17 06/22/17 08:44 - Medications Medications: Current Medications Albuterol/Ipratropium (Duoneb 3 Mg/0.5 Mg (3 Ml) Ud) 3 ml IH [id number] [facility] Last Admin: 06/22/17 13:37 Dose: 3 ml Alprazolam (Xanax) 0.5 mg PO DAILY [facility] PRN Reason: Protocol Last Admin: 06/22/17 09:12 Dose: 0.5 mg Alprazolam (Xanax) 1 mg PO HS [facility] PRN Reason: Protocol Atorvastatin Calcium (Lipitor) 10 mg PO DIN [facility] Duloxetine HCl (Cymbalta) 30 mg PO DAILY [facility] Last Admin: 06/22/17 09:12 Dose: 30 mg Furosemide (Lasix) 40 mg PO DAILY [facility] Last Admin: 06/22/17 09:12 Dose: 40 mg Gemfibrozil (Lopid) 600 mg PO BID [facility] Last Admin: 06/22/17 09:12 Dose: 600 mg Glipizide (Glucotrol Xl) 10 mg PO DAILY [facility] Last Admin: 06/22/17 09:12 Dose: 10 mg Home Med (Home Med) 1 unit INH Q6H [facility] Last Admin: 06/22/17 09:20 Dose: Not Given Hydromorphone HCl (Dilaudid) 0.5 mg IVP Q3H PRN PRN Reason: Pain, Mild (1-3) Last Admin: 06/22/17 12:27 Dose: 0.5 mg Insulin Human Regular (Humulin R Low) 0 units SC ACHS [facility] PRN Reason: Protocol Lisinopril (Zestril) 10 mg PO DAILY [facility] Last Admin: 06/22/17 09:17 Dose: 10 mg Metformin HCl (Glucophage Xr) 1,000 mg PO Q12 [facility] Last Admin: 06/22/17 09:12 Dose: 1,000 mg Metoprolol Tartrate (Lopressor) 25 mg PO DAILY [facility] Last Admin: 06/22/17 09:17 Dose: 25 mg Montelukast Sodium (Singulair) 10 mg PO DAILY [facility] Last Admin: 06/22/17 09:12 Dose: 10 mg Ondansetron HCl (Zofran Inj) 4 mg IVP Q6 PRN PRN Reason: Nausea/Vomiting Last Admin: 06/22/17 09:06 Dose: 4 mg Pantoprazole Sodium (Protonix Ec Tab) 40 mg PO DAILY [facility] Last Admin: 06/22/17 10:36 Dose: 40 mg Pregabalin (Lyrica) 75 mg PO DAILY [facility] Last Admin: 06/22/17 09:12 Dose: 75 mg Quetiapine Fumarate (Seroquel) 100 mg PO [facility] Spironolactone (Aldactone) 25 mg PO DAILY [facility] Last Admin: 06/22/17 09:11 Dose: 25 mg
--- NOTE | 2017-06-22 23:23 | CP.PCM.HP ---
History of Present Illness - History of Present Illness History of Present Illness: 06/22/16 Hortensia Love is a 66 year old female, with a history of hepatitis C, liver mass , recently diagnosed pancreatic cancer, emphysema, hypertensions, and diabetes, presents to the emergency department complaining of abdominal pain. Patient had a recent ERCP and biliary stent placement on 06/04/17. Reports that she has been having abdominal pain since the surgery, but states that pain was much severe tonight. Denies any fever, chills, chest pain, shortness of breath, nausea, vomiting, diarrhea,or any other complaints at this time. Present on Admission - Present on Admission Any Indicators Present on Admission: No Review of Systems - Constitutional Constitutional: As Per HPI - EENT Eyes: As Per HPI Ears: As Per HPI Nose/Mouth/Throat: As Per HPI - Breasts Breasts: As Per HPI - Cardiovascular Cardiovascular: As Per HPI - Respiratory Respiratory: As Per HPI - Gastrointestinal Gastrointestinal: Abdominal Pain, Bloating, Early Satiety Past Patient History - Infectious Disease Hx of Infectious Diseases: None - Tetanus Immunizations Tetanus Immunization: Unknown - Past Medical History & Family History Past Medical History?: Yes - Past Social History Smoking Status: Current Some Days Smoker - CARDIAC Hx Hypertension: Yes - PULMONARY Hx Emphysema: Yes - NEUROLOGICAL Hx Paralysis: No Hx Transient Ischemic Attacks (TIA): Yes - HEENT Hx HEENT Problems: No - RENAL Hx Chronic Kidney Disease: No - ENDOCRINE/METABOLIC Hx Diabetes Mellitus Type 1: Yes - HEMATOLOGICAL/ONCOLOGICAL Hx Cancer: Yes Hx Chemotherapy: Yes Hx Hepatitis C: Yes - INTEGUMENTARY Hx Dermatological Problems: No - MUSCULOSKELETAL/RHEUMATOLOGICAL Hx Degenerative Joint Disease: Yes Hx Falls: Yes - GASTROINTESTINAL Hx Gastrointestinal Disorders: Yes (COLON SURGERY,APPENDECTOMY,COLON RESECTION, LIVER BX) Hx Gastroesophageal Reflux: Yes - GENITOURINARY/GYNECOLOGICAL Hx Hematuria: Yes - PSYCHIATRIC Hx Anxiety: Yes - SURGICAL HISTORY Hx Appendectomy: Yes Other/Comment: colon resection, liver bx. R chest port - ANESTHESIA Hx Anesthesia Reactions: No Hx Malignant Hyperthermia: No Meds Allergies/Adverse Reactions: Allergies Allergy/AdvReac Type Severity Reaction Status Date / Time No Known Allergies Allergy Verified 04/21/17 14:19 Physical Exam - Constitutional Appears: Well - Head Exam Head Exam: ATRAUMATIC, NORMAL INSPECTION, NORMOCEPHALIC - Eye Exam Eye Exam: EOMI, Normal appearance, PERRL Pupil Exam: NORMAL ACCOMODATION, PERRL - ENT Exam ENT Exam: Mucous Membranes Moist, Normal Exam - Neck Exam Neck exam: Positive for: Normal Inspection - Respiratory Exam Respiratory Exam: Clear to Auscultation Bilateral, NORMAL BREATHING PATTERN - Cardiovascular Exam Cardiovascular Exam: REGULAR RHYTHM - GI/Abdominal Exam GI & Abdominal Exam: Normal Bowel Sounds, Soft. absent: Tenderness - Rectal Exam Rectal Exam: NORMAL INSPECTION - Exam Exam: Circumcision, NORMAL INSPECTION External exam: NORMAL EXTERNAL EXAM Speculum exam: NORMAL SPECULUM EXAM Bimanual exam: NORMAL BIMANUAL EXAM - Extremities Exam Extremities exam: Positive for: normal inspection - Back Exam Back exam: NORMAL INSPECTION - Neurological Exam Neurological exam: Alert, CN II-XII Intact, Normal Gait, Oriented x3, Reflexes Normal - Psychiatric Exam Psychiatric exam: Normal Affect, Normal Mood - Skin Skin Exam: Dry, Intact, Normal Color, Warm Results - Vital Signs Recent Vital Signs: Last Vital Signs Temp 98.2 F 06/22/17 16:30 Pulse 76 06/22/17 16:30 Resp 20 06/22/17 16:30 BP 112/78 06/22/17 16:30 Pulse Ox 94 L 06/22/17 16:30 - Labs Result Diagrams: 06/22/17 03:05 06/22/17 03:05 Labs: Laboratory Results - last 24 hr 06/22/17 06/22/17 06/22/17 08:19 16:47 21:01 POC Glucose (mg/dL) 102 76 118 H Assessment & Plan - Assessment and Plan (Free Text) Assessment: Hortensia Love is a 66 year old female, with a history of hepatitis C, liver mass , recently diagnosed pancreatic cancer, emphysema, hypertensions, and diabetes, presents to the emergency department complaining of abdominal pain. Patient had a recent ERCP and biliary stent placement on 06/04/17. Reports that she has been having abdominal pain since the surgery, but states that pain was much severe tonight. Denies any fever, chills, chest pain, shortness of breath, nausea, vomiting, diarrhea,or any other complaints at this time. Plan: 1. Redemonstration of mass in head of pancreas with hepatic, pulmonary and arlet metastases. No significant change. 2. Interval placement of biliary stent. Decompression of gallbladder. oncology consult called , d/d with dr small and dr isabel
[2017-06-23] MEDS: HYDROmorphone 0.5 mg/0.5 ml ISec IVP PRN ×7 (00:31→21:21)
[2017-06-23] MEDS: Albuterol-Ipratrop 3 mg / 0.5 (3 ml) UD IH SCH ×4 (02:02→21:10)
[2017-06-23] MEDS: NICOTROL INH SCH ×4 (03:00→22:44)
[2017-06-23] MEDS: Insulin Reg-LOW-Coverage SC SCH ×4 (07:29→22:45)
[2017-06-23] MEDS: Pantoprazole 40 mg EC Tab PO SCH (09:04)
[2017-06-23] MEDS: GlipiZIDE 10 mg SR Tab PO SCH (09:06)
--- NOTE | 2017-06-23 09:26 | CON ---
DATE: 06/22/2017 REFERRING PHYSICIAN: Dr. Ferrara. REASON FOR CONSULTATION: Chronic obstructive lung disease and obstructive sleep apnea syndrome, has a stage IV metastatic adenocarcinoma. HISTORY OF PRESENT ILLNESS: This is a 66-year old female recently diagnosed with metastatic adenocarcinoma, primary still unknown. She has a chronic obstructive lung disease, history of hepatitis C, emphysema, hypertension, diabetes, recently has ERCP and percutaneous biliary stent placement, supposed to be followed by Oncology, need to start her on chemotherapy, but still has no chemotherapy, comes in with increased abdominal pain, requiring high dose opioids and was sent to emergency room and admitted for further workup. PAST MEDICAL HISTORY: Chronic obstructive lung disease, hypertension, history of TIAs, diabetes, adenocarcinoma with metastatic disease, degenerative joint disease, GERD, uterine fibroid. ALLERGIES: UNKNOWN. SOCIAL HISTORY: She is a smoker. Denies any alcohol use. FAMILY HISTORY: Positive for sleep apnea, obstructive lung disease, and diabetes. MEDICATIONS: She is on Aldactone 25 mg daily, Cymbalta 30 mg daily, Dilaudid 0.5 mg q. 3 hours p.r.n., DuoNeb q. 6 hours, metformin XR 1000 mg twice daily, glipizide 10 mg daily, insulin coverage, Lasix 40 mg daily, Lipitor 10 mg daily, Lopid 600 mg twice a day, metoprolol tartrate 25 mg daily, Lyrica 75 mg daily, Protonix 40 mg daily, Seroquel 100 mg at bedtime, Singulair 10 mg daily, Xanax 0.5 mg daily, Xanax 1 mg at bedtime, Zestril 10 mg daily, Zofran p.r.n. basis. REVIEW OF SYSTEMS: No headache, no rhinitis, no cough, no nausea. Has abdominal pain. No diarrhea. Does have a constipation. No leg pain or leg swelling. PHYSICAL EXAMINATION: GENERAL: Sitting on the side of the bed with mild distress secondary to abdominal pain. VITAL SIGNS: Temperature is 98, heart rate is 76, respiratory rate is 20, blood pressure is 112/78, pulse ox is 94% on room air. HEENT: Moist mucous membrane. Crowded airway. Mallampati score is 4. NECK: Supple. No JVD. LUNGS: Has a fair airflow with few rhonchi, decreased breath sounds at the bases. HEART: S1 and S2. ABDOMEN: Distended and epigastric pain. EXTREMITIES: Trace edema. NEUROLOGIC: Awake, alert and follows simple commands. LABORATORY DATA: Shows hemoglobin 11.3, hematocrit 34.6, WBC 12.8, platelets 389. Blood gases show pH 7.43, pCO2 30, O2 164 on nasal cannula. Sodium 139, potassium 3.7, chloride 106, bicarbonate 23, BUN 12, creatinine 0.7, glucose 99, calcium 9.3, total bilirubin 2.0, AST 63, ALT 41, alkaline phosphatase is 192, albumin 3.8, lipase is 396. Stool for C. diff has been negative. Has a CAT scan of the abdominal and pelvis done today, which shows re-demonstration of mass of the head of the pancreas with hepatic, pulmonary, and arlet metastases, interval placement of the biliary stent, decompression of the gallbladder. Chest x-ray shows multiple pulmonary nodules. IMPRESSION AND PLAN: Metastatic adenocarcinoma; multiple nodules in the lungs, liver involvement; pancreatic duct obstruction, requiring stent; chronic obstructive lung disease; obstructive sleep apnea syndrome; diabetes; hypertension; renal insufficiency; chronic pain syndrome. Case discussed with Dr. Ferrara. Oncology followup, pain management, bronchodilator. Keep head at 45 degrees. Gastric prophylaxis, deep venous thrombosis prophylaxis. Overall poor prognosis. Linnea Stephen MD
--- NOTE | 2017-06-23 14:37 | PN ---
REFERRING PHYSICIAN: Dr. Ferrara. DATE: 06/23/2017 SUBJECTIVE: Sitting up in the bed. Family is at the bedside. Night was unremarkable. Feeling abdominal pain. No cough. No sputum production. Had a bowel movement. No leg pain or leg swelling. OBJECTIVE: GENERAL: In no acute distress. VITAL SIGNS: Temperature is 98, heart rate 97, respiratory rate 20, blood pressure 112/70, pulse ox 96% on room air. HEENT: Moist mucous membrane. Crowded airway. Mallampati score is IV. NECK: Supple. No JVD. LUNGS: Had a fair airflow with few rhonchi. HEART: S1 and S2. ABDOMEN: Positive bowel sounds. Epigastric area tenderness. EXTREMITIES: No edema. NEUROLOGIC: Awake, alert and follows simple commands. MEDICATIONS: She is on Aldactone 25 mg daily, Cymbalta 30 mg daily, Dilaudid 0.5 mg q. 3 hours p.r.n., DuoNeb q. 6 hours, Glucophage XR 1000 mg twice daily, glipizide XL 10 mg daily, insulin coverage, Lasix 40 mg daily, Lipitor 10 mg daily, Lopid 600 mg twice a day, metoprolol tartrate 25 mg daily, Lyrica 75 mg daily, Protonix 40 mg daily, Seroquel 100 mg at bedtime, Singulair 10 mg daily, Xanax 0.5 mg daily, also Xanax 1 mg at bedtime, Zestril 10 mg daily, Zofran p.r.n. basis.. LABORATORY DATA: Reviewed. Blood sugar this morning 94. IMPRESSION AND PLAN: Metastatic adenocarcinoma with multiple nodules in the lung, liver, pancreatic head with obstruction of the ductal system requiring percutaneous drainage placement, chronic lung disease, obstructive sleep apnea syndrome, diabetes, hypertension, renal insufficiency, chronic pain syndrome. I spoke to the patient and family at the bedside and all the questions answered. Dr. Navarrete's note reviewed and noted. Patient will be started on chemotherapy informed about this to the family and patient. Continue bronchodilator, pain management, fall precautions, gastric and DVT prophylaxis. We will follow with you. Linnea Stephen MD
[2017-06-24] MEDS: HYDROmorphone 0.5 mg/0.5 ml ISec IVP PRN ×6 (02:23→20:41)
--- NOTE | 2017-06-24 05:12 | PN ---
The patient is 66 years old female. SUBJECTIVE: The patient was seen and examined by the bedside, getting better after pain medication, but she is getting Dilaudid round the clock, waiting for the oncologist to start chemotherapy. No nausea, vomiting or diarrhea. No hematuria or hematochezia. No swelling of the legs. No chest pain. No palpitations. No headache. No dizziness. PHYSICAL EXAMINATION VITAL SIGNS: Temperature 98, heart rate 97, respiratory rate 20, blood pressure 112/70, and pulse oximetry 93% on room air. HEENT: Head; normocephalic, atraumatic. Eyes; PERRLA. Extraocular muscles intact. Conjunctivae clear. Nose patent. Mucous membranes moist. NECK: Supple. No carotid bruit. No thyromegaly. CHEST: Bilaterally symmetrical. HEART: S1 and S2 positive. LUNGS: Clear to auscultation. ABDOMEN: Soft. Bowel sounds are present. No organomegaly. EXTREMITIES: No edema. No cyanosis. NEUROLOGIC: The patient is awake and alert. Moving all four extremities. No focal deficits. MEDICATIONS: Aldactone, Cymbalta, Dilaudid, DuoNeb, Glucophage, glipizide, insulin, Lipitor, metoprolol, Lyrica, Protonix, Seroquel and Xanax. LABORATORY DATA: Blood sugar is 94. ASSESSMENT AND PLAN: The patient is a 66-year-old lady with multiple medical problems, pancreatic and renal carcinoma with metastasis, multiple nodules in the lung and liver; pancreatic head with obstruction of the distal system; percutaneous drainage placement, chronic lung disease, obstructive sleep apnea syndrome, hypertension, renal insufficiency, and chronic pain syndrome. Dr. Lopez is on the case; waiting for oncologist to start chemotherapy. GI and DVT prophylaxis. Repeat labs. Georgina Ferrara MD
[2017-06-24] MEDS: Albuterol-Ipratrop 3 mg / 0.5 (3 ml) UD IH SCH ×3 (05:21→13:23)
[2017-06-24] MEDS: NICOTROL INH SCH ×4 (05:22→21:21)
--- NOTE | 2017-06-24 06:21 | CP.PCM.PN ---
Subjective - Date & Time of Evaluation Date of Evaluation: 06/24/17 Time of Evaluation: 06:19 - Subjective Subjective: Patient was seen at bedside. She requested her pain medication for abdominal pain. She is on dilaudid 0.5 mg IV Q3H prn. Last time she received was at 5:35 AM. Has no other complaints now. This 66 year old woman was admitted with abdominal pain. PMH:HTN, DM, Hepatitis C, emphysema, liver mass, pancreatic cancer. Objective - Vital Signs/Intake and Output Vital Signs (last 24 hours): Temp Pulse Resp BP Pulse Ox 97.7 F 109 H 18 113/74 96 06/24/17 02:00 06/24/17 02:00 06/24/17 02:00 06/24/17 02:00 06/24/17 02:00 Intake and Output: 06/23/17 06/24/17 18:59 06:59 Intake Total 540 Balance 540 - Medications Medications: Current Medications Albuterol/Ipratropium (Duoneb 3 Mg/0.5 Mg (3 Ml) Ud) 3 ml IH [id number] [facility] Last Admin: 06/24/17 05:21 Dose: Not Given Alprazolam (Xanax) 0.5 mg PO DAILY [facility] PRN Reason: Protocol Last Admin: 06/23/17 09:04 Dose: 0.5 mg Alprazolam (Xanax) 1 mg PO HS [facility] PRN Reason: Protocol Last Admin: 06/23/17 21:01 Dose: 1 mg Atorvastatin Calcium (Lipitor) 10 mg PO DIN [facility] Last Admin: 06/23/17 17:44 Dose: 10 mg Duloxetine HCl (Cymbalta) 30 mg PO DAILY [facility] Last Admin: 06/23/17 09:05 Dose: 30 mg Furosemide (Lasix) 40 mg PO DAILY [facility] Last Admin: 06/23/17 09:05 Dose: 40 mg Gemfibrozil (Lopid) 600 mg PO BID [facility] Last Admin: 06/23/17 17:44 Dose: 600 mg Glipizide (Glucotrol Xl) 10 mg PO DAILY [facility] Last Admin: 06/23/17 09:06 Dose: 10 mg Home Med (Home Med) 1 unit INH Q6H [facility] Last Admin: 06/24/17 05:22 Dose: Not Given Hydromorphone HCl (Dilaudid) 0.5 mg IVP Q3H PRN PRN Reason: Pain, Mild (1-3) Last Admin: 06/24/17 05:35 Dose: 0.5 mg Insulin Human Regular (Humulin R Low) 0 units SC ACHS [facility] PRN Reason: Protocol Last Admin: 06/23/17 22:45 Dose: Not Given Lisinopril (Zestril) 10 mg PO DAILY [facility] Last Admin: 06/23/17 09:05 Dose: 10 mg Metformin HCl (Glucophage Xr) 1,000 mg PO Q12 [facility] Last Admin: 06/23/17 21:01 Dose: 1,000 mg Metoprolol Tartrate (Lopressor) 25 mg PO DAILY [facility] Last Admin: 06/23/17 09:06 Dose: 25 mg Montelukast Sodium (Singulair) 10 mg PO DAILY [facility] Last Admin: 06/23/17 09:05 Dose: 10 mg Ondansetron HCl (Zofran Inj) 4 mg IVP Q6 PRN PRN Reason: Nausea/Vomiting Last Admin: 06/23/17 18:26 Dose: 4 mg Pantoprazole Sodium (Protonix Ec Tab) 40 mg PO DAILY [facility] Last Admin: 06/23/17 09:04 Dose: 40 mg Pregabalin (Lyrica) 75 mg PO DAILY [facility] Last Admin: 06/23/17 09:05 Dose: 75 mg Quetiapine Fumarate (Seroquel) 100 mg PO HS [facility] Last Admin: 06/23/17 21:01 Dose: 100 mg Spironolactone (Aldactone) 25 mg PO DAILY [facility] Last Admin: 06/23/17 09:05 Dose: 25 mg - Constitutional Appears: Well, No Acute Distress - Head Exam Head Exam: ATRAUMATIC, NORMAL INSPECTION, NORMOCEPHALIC - Eye Exam Eye Exam: Normal appearance - ENT Exam ENT Exam: Normal External Ear Exam - Neck Exam Neck Exam: Normal Inspection - Respiratory Exam Respiratory Exam: NORMAL BREATHING PATTERN - Cardiovascular Exam Cardiovascular Exam: absent: JVD - GI/Abdominal Exam GI & Abdominal Exam: absent: Distended - Rectal Exam Rectal Exam: Deferred - Extremities Exam Extremities Exam: Normal Inspection - Back Exam Back Exam: NORMAL INSPECTION - Neurological Exam Neurological Exam: Alert, Oriented x3 - Psychiatric Exam Psychiatric exam: Normal Affect, Normal Mood - Skin Skin Exam: Normal Color Assessment and Plan - Assessment and Plan (Free Text) Assessment: Abdominal pain. HTN. DM. Emphysema. Pancreatic cancer. Liver mass. Hepatitis C. Plan: Toradol 30 mg IV. Continue present management.
[2017-06-24] MEDS: Insulin Reg-LOW-Coverage SC SCH ×4 (07:58→21:21)
[2017-06-24] MEDS: Pantoprazole 40 mg EC Tab PO SCH (09:12)
[2017-06-24] MEDS: GlipiZIDE 10 mg SR Tab PO SCH (09:13)
[2017-06-24] MEDS: Sodium Chloride 0.9% 1,000 ML IV SCH ×2 (09:18→18:46)
--- NOTE | 2017-06-24 21:21 | PN ---
DATE: 06/24/2017 REFERRING PHYSICIAN: Georgina Ferrara MD SUBJECTIVE: She is lying in the bed, feeling little better on pain medication. No headache. No rhinitis. No cough. No nausea or abdominal pain. No dysuria. No leg pain or leg swelling. PHYSICAL EXAMINATION: GENERAL: In no acute distress. VITAL SIGNS: Temperature is 98, heart rate 72, respiratory rate is 20, blood pressure 103/66 and pulse ox 97% on room air. HEENT: Moist mucous membranes. Crowded airway. Mallampati score is IV. NECK: Supple. No JVD. LUNGS: Had a fair airflow with few rhonchi. HEART: S1 and S2. ABDOMEN: Positive bowel sounds. Epigastric area tenderness. EXTREMITIES: There is no edema. NEUROLOGIC: Awake, alert and follows simple commands. MEDICATIONS: She is on Aldactone 25 mg daily, Cymbalta 30 mg daily, Dilaudid 0.5 mg IV q. 3 hour p.r.n., DuoNeb q. 6 hours, Glucophage XR 1000 mg q. 12 hours, glipizide 10 mg daily, insulin coverage, Lasix 40 mg daily, Lipitor 10 mg daily, gemfibrozil 600 mg twice a day, metoprolol tartrate 25 mg daily, Lyrica 75 mg daily, OxyContin extended release 10 mg q. 12 hours, Protonix 40 mg daily, Seroquel 100 mg at bedtime, Singulair 10 mg daily, IV fluid normal saline 100 mL per hour, Xanax 0.5 mg daily, Zestril 10 mg daily and Zofran p.r.n. basis. LABORATORY DATA: Shows blood sugar this morning is 79. IMPRESSION AND PLAN: Metastatic adenocarcinoma with multiple nodules in the lung, liver, pancreas head mass obstructing the ductal system requiring stent, chronic lung disease, obstructive sleep apnea syndrome, diabetes, hypertension, renal insufficiency, chronic pain syndrome. Pulmonary point of view doing okay. Keep head 45 degree, bronchodilator, gastric prophylaxis, SCDs to lower extremity. Waiting for chemotherapy to be started. Thank you and I will follow with you. Linnea Stephen MD
[2017-06-24] MEDS: oxyCODONE 10 mg ER Tab (oxyCONTIN) PO SCH (21:23)
[2017-06-25] MEDS: NICOTROL INH SCH ×4 (04:19→21:23)
--- NOTE | 2017-06-25 05:21 | PN ---
DATE: 06/24/2017 SUBJECTIVE: She is sitting on the bed, looking comfortable and getting the Dilaudid [id number] every 3 hours, then and now I added OxyContin 10 mg p.o. b.i.d. No nausea or vomiting. Appetite is not great, but still she is eating. Seen by oncologist and driver's education instructor. PHYSICAL EXAMINATION: VITAL SIGNS: Temperature 98, heart rate 72, respiratory rate 20, blood pressure 103/66, pulse oximetry 97%. HEENT: Head is normocephalic and atraumatic. Eyes: PERRLA. Extraocular muscles intact. Conjunctivae clear. Eyelids are unremarkable. Nose patent. Mucous membranes moist. NECK: Supple. No carotid bruit. No thyromegaly. CHEST: Bilaterally symmetrical. HEART: S1 and S2 positive. LUNGS: Clear to auscultation. ABDOMEN: Soft. Bowel sounds are present. No organomegaly. EXTREMITIES: No edema and no cyanosis. NEUROLOGIC: The patient is awake and alert. Moving all 4 extremities. No focal deficit. MEDICATIONS: Aldactone, Cymbalta, Dilaudid, DuoNeb, Glucophage, glipizide, Lasix, Lipitor, gemfibrozil, metoprolol, OxyContin, Protonix, Seroquel, Singulair, Xanax, Zestril, Zofran. LABORATORY DATA: We do not have recent lab today, but I reviewed the old labs. Blood sugar 79. ASSESSMENT AND PLAN: The patient is a 66-year-old lady with metastatic adenocarcinoma of the multiple nodules in the lung, liver, pancreas, obstructing the ductal system requiring stent, chronic lung disease, obstructive sleep apnea syndrome, uncontrolled diabetes mellitus, hypertension, history of heavy smoking, history of hepatitis C positive, renal insufficiency, chronic pain syndrome, history of depression. SCDs to lower extremity. GI and DVT prophylaxis. The patient will get chemotherapy for the first time tomorrow. We will follow up. Georgina Ferrara MD [place]
[2017-06-25] MEDS: Sodium Chloride 0.9% 1,000 ML IV SCH ×2 (06:46→21:26)
[2017-06-25 07:31] LABS: ADD MANUAL DIFF? NO
[2017-06-25 07:34] LABS: BASO # 0.02 K/mm3 (0.0-2.0); BASO % 0.2 % (0.0-3.0); EOS # 0.3 (0.0-0.7); EOS % 2.8 % (1.5-5.0); GRAN # 7.82 (1.4-6.5); LYMPH # 1.8 (1.2-3.4); LYMPH % 16.6 % (22.0-35.0); MEAN CELL VOLUME 83.3 fl (80.0-105.0); MEAN CORPUSCULAR HEMOGLOBIN 27.3 pg (25.0-35.0); MEAN CORPUSCULAR HGB CONC 32.8 g/dl (31.0-37.0); MEAN PLATELET VOLUME 9.2 fl (7.0-11.0); MONO # 0.9 (0.1-0.6); MONO % 8.4 % (1.0-6.0); PLATELET COUNT 279 10^3/uL (120.0-450.0); WHITE BLOOD COUNT 10.9 10^3/ul (4.5-11.0)
[2017-06-25 07:43] LABS: ALB/GLOB RATIO 0.9 (1.1-1.8); ALKALINE PHOSPHATASE 193 U/L (38-133); ALT/SGPT 40 U/L (7-56); AST/SGOT 70 U/L (15-39); BILIRUBIN,TOTAL 1.7 mg/dL (0.2-1.3); CALCIUM 9.4 mg/dL (8.4-10.5); CARBON DIOXIDE 27 mmol/L (21-33); CHLORIDE 103 mmol/L (95-110); GLUCOSE,RANDOM 74 mg/dL (70-110); MAGNESIUM 1.7 mg/dL (1.7-2.2); POTASSIUM 4.1 mmol/L (3.6-5.0); SODIUM 143 mmol/L (132-148); TOTAL PROTEIN 7.6 g/dL (5.8-8.3)
[2017-06-25 07:49] LABS: BLOOD UREA NITROGEN 13 mg/dL (7-21); GFR AFRICAN-AMERICAN > 60
[2017-06-25] MEDS: Albuterol-Ipratrop 3 mg / 0.5 (3 ml) UD IH SCH ×3 (07:55→19:41)
[2017-06-25] MEDS: Insulin Reg-LOW-Coverage SC SCH ×4 (08:30→21:29)
[2017-06-25] MEDS ORDERED: DEXAMETHASONE IVPB ONE (08:45)
[2017-06-25] MEDS ORDERED: SODIUM CHLORIDE 0.9% IVPB ONE (08:45)
[2017-06-25] MEDS ORDERED: PACLITAXEL PROTEIN BOUND IV ONE (08:45)
[2017-06-25] MEDS ORDERED: FAMOTIDINE IVPB ONE (08:45)
[2017-06-25] MEDS ORDERED: ONDANSETRON IVPB ONE (08:45)
[2017-06-25] MEDS ORDERED: GEMCITABINE IV ONE (08:45)
[2017-06-25] MEDS ORDERED: SODIUM CHLORIDE 0.9% IV ONE ×2 (08:45)
[2017-06-25] MEDS: Pantoprazole 40 mg EC Tab PO SCH (09:21)
[2017-06-25] MEDS: oxyCODONE 10 mg ER Tab (oxyCONTIN) PO SCH ×2 (09:22→21:21)
[2017-06-25] MEDS: GlipiZIDE 10 mg SR Tab PO SCH (09:28)
[2017-06-25] MEDS: HYDROmorphone 0.5 mg/0.5 ml ISec IVP PRN ×2 (11:41→17:17)
[2017-06-25 17:02] VITALS: O2SAT 95
[2017-06-26] MEDS: Sodium Chloride 0.9% 1,000 ML IV SCH
[2017-06-26] MEDS: HYDROmorphone 0.5 mg/0.5 ml ISec IVP PRN ×2 (01:02→11:52)
[2017-06-26] MEDS: Albuterol-Ipratrop 3 mg / 0.5 (3 ml) UD IH SCH ×3 (01:02→08:36)
--- NOTE | 2017-06-26 02:12 | PN ---
DATE: 06/25/2017 SUBJECTIVE: The patient is a 66-year-old female. The patient seen and examined by the bedside. Looking comfortable. No nausea, vomiting or diarrhea. No hematuria or hematochezia. No swelling of the legs. No chest pain. No palpitations. No headache. No dizziness. She is getting chemotherapy. PHYSICAL EXAMINATION: VITAL SIGNS: Temperature 98.1, pulse 69, blood pressure 122/75, respiratory rate 19. HEENT: Head is normocephalic and atraumatic. Eyes; PERRLA. Extraocular muscles intact. Conjunctivae clear. Nose is patent. Mucus membranes moist. NECK: Supple. No carotid bruits. No JVD or thyromegaly. CHEST: Bilaterally symmetrical. HEART: S1 and S2 positive. LUNGS: Clear to auscultation. ABDOMEN: Soft. Bowel sounds present. No organomegaly. EXTREMITIES: No edema. No cyanosis. NEUROLOGIC: The patient is awake and alert. Moving all four extremities. No focal deficit. MEDICATIONS: Spironolactone, Cymbalta, Dilaudid, DuoNeb, Glucophage, Glucotrol, insulin, Lasix, Lipitor, Lyrica, Protonix, Seroquel, Singulair and Xanax. LABORATORY DATA: White blood cells 10.9, hemoglobin 10.5, hematocrit 32.0 and platelets 279. Sodium 140, potassium 4.1, lactic acid 1.0, glucose 221, 28, 75, 62. ASSESSMENT AND PLAN: The patient is 66 years old lady with uncontrolled diabetes mellitus, abnormal liver function tests, anemia, has metastatic adenocarcinoma with multiple nodules in the lungs, liver and pancreas, has a mass in the head of the pancreas, obstructing the ductal system requiring stent, chronic lung disease, obstructive sleep apnea syndrome, hypertension, renal insufficiency, chronic pain syndrome, getting chemotherapy today. Son was sitting at the bedside. Lots of discussion done. All questions answered. We will follow up. Georgina Ferraar MD
--- NOTE | 2017-06-26 02:31 | PN ---
DATE: 06/25/2017 REFERRING PHYSICIAN: Dr. Ferrara. SUBJECTIVE: The patient is lying in the bed, received chemotherapy today. No nausea, no vomiting. Does have abdominal pain. No dysuria. No leg pain or leg swelling. OBJECTIVE: GENERAL: In no acute distress. VITAL SIGNS: Temperature 98, heart rate 60, respiratory rate is 25, blood pressure 122/75, pulse ox 95%on room air.. HEENT: Moist mucous membranes. Crowded airway. NECK: Supple. No JVD. LUNGS: Has a fair airflow with few rhonchi. HEART: S1 and S2. ABDOMEN: Positive bowel sounds. Positive epigastric tenderness. EXTREMITIES: There is no edema. NEUROLOGICAL: Awake, alert and follows simple commands. MEDICATIONS: She is on Aldactone 25 mg daily, Cymbalta 30 mg daily, Dilaudid 0.5 mg q. 3 hours p.r.n., DuoNeb q. 6 hour, metformin 1000 mg twice a day, glipizide 10 mg daily, insulin coverage, Lasix 40 mg daily, Lipitor 10 mg daily, Lopid 600 mg twice a day, metoprolol tartrate 25 mg daily, Lyrica 75 mg daily, OxyContin extended release 10 mg twice a day, Protonix 40 mg daily, Seroquel 100 mg at bedtime, Singulair 10 mg daily, IV fluid normal saline 100 mL per hour, Xanax 0.5 mg daily, also Xanax 1 mg at bedtime, Zestril 10 mg daily and Zofran p.r.n. basis. LABORATORY DATA: Shows hemoglobin 10.5, hematocrit 32.0, WBC 10.9, platelet count is 279. Sodium 143, potassium 4.1, chloride 103, bicarbonate 27, BUN 13, creatinine 1.0, glucose 74, calcium 9.4, magnesium 1.7, total protein 1.7, AST 70, ALT is 40, alk phos is 193, albumin is 3.7. IMPRESSION AND PLAN: Metastatic adenocarcinoma with multiple nodules in the lung, liver, pancreas and a mass in the head of the pancreas also obstructing duct system requiring stent, chronic lung disease, obstructive sleep apnea syndrome, diabetes, hypertension, renal insufficiency, chronic pain syndrome. Pulmonary point of view doing okay. Continue IV fluid, bronchodilator, keep head at 45 degrees, sleep apnea precautions, noncompliance with CPAP and BiPAP, gastric prophylaxis, SCDs to lower extremity. We will follow with you. Linnea Stephen MD
[2017-06-26] MEDS: NICOTROL INH SCH ×2 (05:18→10:05)
[2017-06-26 07:07] LABS: BLOOD UREA NITROGEN 16 mg/dL (7-21); CALCIUM 9.1 mg/dL (8.4-10.5); CARBON DIOXIDE 26 mmol/L (21-33); CHLORIDE 108 mmol/L (98-107); GFR AFRICAN-AMERICAN > 60; GLUCOSE,RANDOM 72 mg/dL (70-110); SODIUM 143 mmol/L (132-148)
[2017-06-26 07:14] LABS: HEMATOCRIT 32.3 % (36.0-48.0); MEAN CELL VOLUME 82.6 fl (80.0-105.0); MEAN CORPUSCULAR HEMOGLOBIN 27.1 pg (25.0-35.0); MEAN CORPUSCULAR HGB CONC 32.8 g/dl (31.0-37.0); MEAN PLATELET VOLUME 10.5 fl (7.0-11.0); RED CELL DISTRIBUTION WIDTH 15.9 % (11.5-14.5); WHITE BLOOD COUNT 7.6 10^3/ul (4.5-11.0)
[2017-06-26] MEDS: Insulin Reg-LOW-Coverage SC SCH ×2 (08:11→12:07)
[2017-06-26 09:47] VITALS: BP 137/86; PULSE 73; RESP 20; TEMP 92.6
[2017-06-26] MEDS: GlipiZIDE 10 mg SR Tab PO SCH (10:06)
[2017-06-26] MEDS: oxyCODONE 10 mg ER Tab (oxyCONTIN) PO SCH (10:06)
[2017-06-26] MEDS: Pantoprazole 40 mg EC Tab PO SCH (10:08)
--- NOTE | 2017-06-26 15:56 | CP.PCM.PN ---
Subjective - Date & Time of Evaluation Date of Evaluation: 06/26/17 Time of Evaluation: 15:35 - Subjective Subjective: Patient is being discharged today. As per PMD's request,Rx given for the following meds: 1. Oxycodone 10 mg po Q 12 hours for 3 days. 2. Protonix 40 mg po once daily for 30 days. Patient is to follow up with Dr Rowan on 06/28/17. Objective - Vital Signs/Intake and Output Vital Signs (last 24 hours): Temp Pulse Resp BP Pulse Ox 92.6 F L 73 20 137/86 95 06/26/17 06:00 06/26/17 06:00 06/26/17 06:00 06/26/17 10:06 06/26/17 06:00 Intake and Output: 06/26/17 06/26/17 06:59 18:59 Intake Total 1720 Balance 1720 - Medications Medications: Current Medications Albuterol/Ipratropium (Duoneb 3 Mg/0.5 Mg (3 Ml) Ud) 3 ml IH [id number] [facility] Last Admin: 06/26/17 08:36 Dose: Not Given Alprazolam (Xanax) 0.5 mg PO DAILY [facility] PRN Reason: Protocol Last Admin: 06/26/17 10:05 Dose: 0.5 mg Alprazolam (Xanax) 1 mg PO HS [facility] PRN Reason: Protocol Last Admin: 06/25/17 21:21 Dose: 1 mg Atorvastatin Calcium (Lipitor) 10 mg PO DIN [facility] Last Admin: 06/25/17 17:17 Dose: 10 mg Duloxetine HCl (Cymbalta) 30 mg PO DAILY [facility] Last Admin: 06/26/17 10:05 Dose: 30 mg Furosemide (Lasix) 40 mg PO DAILY [facility] Last Admin: 06/26/17 10:06 Dose: 40 mg Gemfibrozil (Lopid) 600 mg PO BID [facility] Last Admin: 06/26/17 10:07 Dose: 600 mg Glipizide (Glucotrol Xl) 10 mg PO DAILY [facility] Last Admin: 06/26/17 10:06 Dose: 10 mg Home Med (Home Med) 1 unit INH Q6H [facility] Last Admin: 06/26/17 10:05 Dose: Not Given Hydromorphone HCl (Dilaudid) 0.5 mg IVP Q3H PRN PRN Reason: Pain, Mild (1-3) Last Admin: 06/26/17 11:52 Dose: 0.5 mg Sodium Chloride (Sodium Chloride 0.9%) 1,000 mls @ 100 mls/hr IV .Q10H [facility] Last Admin: 06/26/17 00:00 Dose: Not Given Insulin Human Regular (Humulin R Low) 0 units SC ACHS [facility] PRN Reason: Protocol Last Admin: 06/26/17 12:07 Dose: Not Given Lisinopril (Zestril) 10 mg PO DAILY [facility] Last Admin: 06/26/17 10:06 Dose: 10 mg Metformin HCl (Glucophage Xr) 1,000 mg PO Q12 [facility] Last Admin: 06/26/17 10:05 Dose: 1,000 mg Metoprolol Tartrate (Lopressor) 25 mg PO DAILY [facility] Last Admin: 06/26/17 10:05 Dose: 25 mg Montelukast Sodium (Singulair) 10 mg PO DAILY [facility] Last Admin: 06/26/17 10:05 Dose: 10 mg Ondansetron HCl (Zofran Inj) 4 mg IVP Q6 PRN PRN Reason: Nausea/Vomiting Last Admin: 06/24/17 20:46 Dose: 4 mg Oxycodone HCl (Oxycontin Extended Release Tab) 10 mg PO Q12 [facility] Stop: 06/27/17 22:01 Last Admin: 06/26/17 10:06 Dose: 10 mg Pantoprazole Sodium (Protonix Ec Tab) 40 mg PO DAILY [facility] Last Admin: 06/26/17 10:08 Dose: 40 mg Pregabalin (Lyrica) 75 mg PO DAILY [facility] Last Admin: 06/26/17 10:06 Dose: 75 mg Quetiapine Fumarate (Seroquel) 100 mg PO HS [facility] Last Admin: 06/25/17 21:22 Dose: 100 mg Spironolactone (Aldactone) 25 mg PO DAILY [facility] Last Admin: 06/26/17 10:05 Dose: 25 mg - Labs Labs: 06/26/17 06:30 06/26/17 06:30
--- NOTE | 2017-07-11 15:33 | DS ---
CHIEF COMPLAINT: Nausea, vomiting, intractable abdominal pain. HISTORY OF PRESENT ILLNESS: Ms. Hortensia Love is a 66-year-old female with history of hepatitis C and liver mass. She was diagnosed with pancreatic cancer, emphysema, hypertension, diabetes mellitus, came to the emergency department complaining of abdominal pain, nausea, vomiting. Patient had recent ERCP and biliary stent placed on 05/27/2017. Reports that she has been having abdominal pain since the surgery, but states that pain was much severe the day of admission. Denies fever, chills, rash, hematuria, hematochezia. We admitted the patient. Consult called with GI; oncology. Dr. Navarrete. pain medication given, improved, discharged home 06/26/2017. House physician, Dr. Debora Richardson gave oxycodone and Protonix. The patient has follow up pending with Dr. Navarrete and primary care physician. PAST MEDICAL HISTORY: Hypertension, bronchitis, COPD, emphysema, TIA, diabetes mellitus, arthritis, rheumatoid arthritis, colon surgery, appendectomy, colon resection, liver biopsy, fibroid of the uterus, history of cocaine, benzo abuse. FAMILY HISTORY: Father and mother, noncontributory. HABITS: Smoking: Light smoker, less than 10 cigarettes per day. Alcohol: Yes, abusing alcohol. SUBSTANCE ABUSE: History of cocaine and benzodiazepine abuse in the past, now is clean as per patient. ALLERGIES: PATIENT IS NOT ALLERGIC TO ANY MEDICATION. HOME MEDICATIONS: Reviewed by me. REVIEW OF SYSTEMS: The patient is seen and examined on the bedside, looking comfortable. Pain is better. No nausea, vomiting, or diarrhea. No hematuria or hematochezia. No headache, no dizziness. No chest pain. No palpitations. Abdominal pain is getting better. PHYSICAL EXAMINATION: VITAL SIGNS: Temperature 92.6, pulse 73, blood pressure 137/53, respiratory rate 20. HEENT: Head: Normocephalic and atraumatic. Eyes: PERRLA. Extraocular muscles intact. Conjunctivae clear. Nose is patent. Mucous membranes moist. NECK: Supple. No carotid bruits, JVD or thyromegaly. CHEST: Bilaterally symmetrical. HEART: S1 and S2 positive. LUNGS: Clear to auscultation. ABDOMEN: Soft. Bowel sounds positive. No organomegaly. EXTREMITIES: No edema and no cyanosis. NEUROLOGIC: The patient is awake and alert. Moving all four extremities. No focal deficits. LABORATORY DATA: White blood cell 7.6, hemoglobin 10.6, hematocrit 32.3, and platelets 306. Sodium 143, potassium 4.0, BUN 16, creatinine 0.9. Glucose 51, 62, 333. ASSESSMENT AND PLAN: Ms. Hortensia Love is a 66-year-old lady with past medical history of multiple problems, had metastatic renal carcinoma with multiple nodules in the lungs, liver, pancreas and mass in the head of the pancreas, was causing obstruction, requiring stent placement, chronic lung disease, chronic obstructive pulmonary disease, obstructive sleep apnea syndrome, hypertension, renal insufficiency, chronic pain syndrome, history of ethanol abuse, history of smoking. Per oncologist, who on the case took the patient for first treatment of chemotherapy by Dr. Navarrete, sleep apnea precautions and known compliance with CPAP and BiPAP. Gastric prophylaxis. SCD given to the lower extremities. Discharged home on 06/26/2017, oxycodone and Protonix prescription given by Dr. Debora Richardson,house physician, has appointment with Dr. Navarrete and will see primary care physician also. Georgina Ferrara MD MTDChina
== END 2017-06-26 16:05 | disposition home or self-care (01) | DRG 436 ==
LOC: ED 01:58 → ERH 06:12 → 3RNO 08:48 → OBSVTOIN 06-23 16:54
PROVIDERS: ADMIT Internal Medicine; ATTEND Internal Medicine
DX: C25.0 Malignant neoplasm of head of pancreas (principal); C78.00 Secondary malignant neoplasm of unspecified lung; C78.7 Secondary malignant neoplasm of liver and intrahepatic bile duct; E11.65 Type 2 diabetes mellitus with hyperglycemia; J44.9 Chronic obstructive pulmonary disease, unspecified; I10 Essential (primary) hypertension; B19.20 Unspecified viral hepatitis C without hepatic coma; N28.9 Disorder of kidney and ureter, unspecified; G89.4 Chronic pain syndrome; G47.33 Obstructive sleep apnea (adult) (pediatric); F17.200 Nicotine dependence, unspecified, uncomplicated; D64.9 Anemia, unspecified; F32.9 Major depressive disorder, single episode, unspecified; Z79.84 Long term (current) use of oral hypoglycemic drugs

== ENCOUNTER 2017-06-28 05:14 | Inpatient (IN) | payer MEDICARE, OTHER ==
[2017-06-28 05:14] VITALS: BMI 35.7
[2017-06-28] MEDS ORDERED: Sodium Chloride 0.9% 1,000 ML IV STA ×2 (05:29→07:00)
[2017-06-28] MEDS ORDERED: HYDROmorphone 2 mg/ml ISec IVP STA ×2 (05:30→06:58)
--- NOTE | 2017-06-28 05:34 | ED PDOC ---
Arrival/HPI - General Chief Complaint: Abdominal Pain Time Seen by Provider: 06/28/17 05:22 Historian: Patient - History of Present Illness Narrative History of Present Illness (Text): 06/28/17 05:30 Hortensia Love is a 66 year old female, with a history of hepatitis C, liver mass , recently diagnosed pancreatic cancer, emphysema, hypertensions, and diabetes, who presents to the Emergency department brought in by EMS for abdominal pain. Patient states she has been experiencing upper abdominal pain with associated nausea, vomiting, and decreased PO intake secondary to vomiting. Patient denies any fever, chills, chest pain, shortness of breath, urinary symptoms, back pain , neck pain, headache, dizziness, or any other complaints. Time/Duration: Other (yesterday) Symptom Onset: Gradual Symptom Course: Unchanged Activities at Onset: Rest, Light Context: Home Past Medical History - Provider Review Nursing Documentation Reviewed: Yes - Infectious Disease Hx of Infectious Diseases: None - Tetanus Immunization Tetanus Immunization: Unknown - Cardiac Hx Hypertension: Yes - Pulmonary Hx Emphysema: Yes - Neurological Hx Paralysis: No Hx Transient Ischemic Attacks (TIA): Yes - HEENT Hx HEENT Disorder: No - Renal Hx Renal Disorder: No - Endocrine/Metabolic Hx Diabetes Mellitus Type 1: Yes - Hematological/Oncological Hx Cancer: Yes Hx Chemotherapy: Yes Hx Hepatitis C: Yes - Integumentary Hx Dermatological Disorder: No - Musculoskeletal/Rheumatological Hx Degenerative Joint Disease: Yes Hx Falls: Yes - Gastrointestinal Hx Gastrointestinal Disorders: Yes (COLON SURGERY,APPENDECTOMY,COLON RESECTION, LIVER BX) Hx Gastroesophageal Reflux: Yes - Genitourinary/Gynecological Hx Hematuria: Yes - Psychiatric Hx Anxiety: Yes Hx Substance Use: Yes (H/O OF COCAINE AND BENZO ABUSE.STATES HAS BEEN CLEAN.) - Past Surgical History Past Surgical History: No Previous - Surgical History Hx Appendectomy: Yes Other/Comment: colon resection, liver bx. R chest port - Anesthesia Hx Anesthesia Reactions: No Hx Malignant Hyperthermia: No - Suicidal Assessment Feels Threatened In Home Enviroment: No Family/Social History - Physician Review Nursing Documentation Reviewed: Yes Family/Social History: Unknown Family HX Smoking Status: Current Some Days Smoker Hx Alcohol Use: Yes (ETOH USE) Hx Substance Use: Yes (H/O OF COCAINE AND BENZO ABUSE.STATES HAS BEEN CLEAN.) Hx Substance Use Treatment: No Allergies/Home Meds Allergies/Adverse Reactions: Allergies No Known Allergies Allergy (Verified 04/21/17 14:19) Home Medications: Home Meds Medication Instructions Recorded Confirmed ALPRAZolam [Xanax] 1 mg PO HS 04/21/17 06/28/17 Alprazolam [Xanax] 0.5 mg PO DAILY 04/21/17 06/28/17 DULoxetine [Cymbalta] 30 mg PO DAILY 04/21/17 06/28/17 Esomeprazole Magnesium [Nexium] 40 mg PO DAILY 04/21/17 06/28/17 Furosemide [Lasix] 40 mg PO DAILY 04/21/17 06/28/17 Gemfibrozil [Lopid] 600 mg PO BID 04/21/17 06/28/17 Glipizide [Glipizide ER] 10 mg PO DAILY 04/21/17 06/28/17 Levocetirizine Dihydrochloride 5 mg PO DAILY 04/21/17 06/28/17 [Xyzal] Lisinopril [Zestril] 10 mg PO DAILY 04/21/17 06/28/17 Metformin ER [Glucophage XR] 1,000 mg PO Q12 04/21/17 06/28/17 Metoprolol Tartrate [Lopressor] 25 mg PO DAILY 04/21/17 06/28/17 Montelukast [Singulair] 10 mg PO DAILY 04/21/17 06/28/17 Nicotine [Nicotrol] 10 mg IH Q6 04/21/17 06/28/17 QUEtiapine [Seroquel] 200 mg PO HS 04/21/17 06/28/17 Spironolactone [Aldactone] 25 mg PO DAILY 04/21/17 06/28/17 Review of Systems - Physician Review All systems were reviewed & negative as marked: Yes - Review of Systems Constitutional: Normal. absent: Fevers Eyes: Normal ENT: Normal Respiratory: Normal. absent: SOB, Cough Cardiovascular: Normal. absent: Chest Pain Gastrointestinal: Abdominal Pain, Nausea, Vomiting Genitourinary Female: Normal. absent: Dysuria, Frequency, Hematuria, Urine Output Changes Musculoskeletal: Normal. absent: Back Pain, Neck Pain Skin: Normal. absent: Rash Neurological: Normal. absent: Headache, Dizziness Endocrine: Normal Hemo/Lymphatic: Normal Psychiatric: Normal Physical Exam Vital Signs Reviewed: Yes Vital Signs Temp Pulse Resp BP Pulse Ox 06/28/17 09:06 99 H 18 113/75 98 06/28/17 07:34 104 H 18 102/85 98 06/28/17 05:17 97.9 F 105 H 20 120/94 H 100 Temperature: Afebrile Blood Pressure: Normal Pulse: Regular Respiratory Rate: Normal Appearance: Positive for: Well-Appearing, Non-Toxic, Comfortable Pain Distress: None Mental Status: Positive for: Alert and Oriented X 3 - Systems Exam Head: Present: Atraumatic, Normocephalic Pupils: Present: PERRL Extroacular Muscles: Present: EOMI Conjunctiva: Present: Normal Mouth: Present: Moist Mucous Membranes Neck: Present: Normal Range of Motion Respiratory/Chest: Present: Clear to Auscultation, Good Air Exchange. No: Respiratory Distress, Accessory Muscle Use Cardiovascular: Present: Regular Rate and Rhythm, Normal S1, S2. No: Murmurs Abdomen: No: Tenderness, Distention, Normal Bowel Sounds (distant bowel sounds) , Peritoneal Signs Back: Present: Normal Inspection Upper Extremity: Present: Normal Inspection. No: Cyanosis, Edema Lower Extremity: Present: Normal Inspection. No: Edema Neurological: Present: GCS=15, CN II-XII Intact, Speech Normal Skin: Present: Warm, Dry, Normal Color. No: Rashes Psychiatric: Present: Alert, Oriented x 3, Normal Insight, Normal Concentration Medical Decision Making ED Course and Treatment: 06/28/17 05:30 Impression: 66 year old female complaining of upper abdominal pain, nausea, and vomiting. Plan: -- CT Abdomen and Pelvis w/o contrast -- EKG -- Labs, cardiac enzymes, lipase, amylase -- UA -- IV fluids -- Zofran -- DIlaudid -- Reassess and disposition Prior Visits: Notes and results from previous visits were reviewed. On 06/22/2017, pt was seen in the Emergency department complaining of abdominal pain s/p biliary stent placement and ERCP. Pt was admitted to the hospital for further evaluation. Progress Notes: Reviewed EKG, sinus tachycardia at 103 bpm. Non-specific ST/T wave changes. spoke with dr pina reddy for abd pain 06/30/17 08:50 - Lab Interpretations Lab Results: 06/28/17 06:00 06/28/17 06:00 Lab Results 06/28/17 06:00: Sodium 143, Potassium 3.5 L, Chloride 106, Carbon Dioxide 26, Anion Gap 15, BUN 10, Creatinine 0.7, Est GFR ( Amer) > 60, Est GFR (Non- Af Amer) > 60, Random Glucose 128 H, Calcium 9.5, Total Bilirubin 2.3 H, AST 109 H, ALT 30, Alkaline Phosphatase 162 H, Lactate Dehydrogenase 441, Total Creatine Kinase 27 L, Troponin I < 0.01, Total Protein 7.8, Albumin 3.8, Globulin 4.0, Albumin/Globulin Ratio 1.0 L, Amylase 58, Lipase 111 06/28/17 06:00: PT 12.1 H, INR 1.12 H, APTT 28.4 06/28/17 06:00: WBC 9.3 D, RBC 3.95, Hgb 10.8 L, Hct 32.3 L, MCV 81.8, MCH 27.3 , MCHC 33.4, RDW 15.3 H, Plt Count 256, MPV 10.0, Gran % 85.6 H, Lymph % (Auto) 12.6 L, [place] % (Auto) 1.0, Eos % (Auto) 0.8 L, Baso % (Auto) 0.0, Gran # 7.95 H , Lymph # 1.2, [place] # 0.1, Eos # 0.1, Baso # 0.00 - RAD Interpretation Radiology Orders: 06/28/17 05:29 ABD & PELVIS W/O PO OR IV CONT [CT] Stat - EKG Interpretation Interpreted by ED Physician: Yes Type: 12 lead EKG - Medication Orders Current Medication Orders: Alprazolam (Xanax) 0.5 mg PO DAILY [facility] PRN Reason: Protocol Last Admin: 06/29/17 09:23 Dose: 0.5 mg Re-Assess: Reassess Psych Meds Document 06/29/17 10:23 RS (Rec: 06/29/17 11:04 RS [email or web address]) Reassess Psych Med Effective Alprazolam (Xanax) 1 mg PO HS [facility] PRN Reason: Protocol Last Admin: 06/29/17 21:30 Dose: 1 mg Re-Assess: Reassess Psych Meds Document 06/29/17 22:30 RR (Rec: 06/29/17 23:22 RR [id number]) Reassess Psych Med Effective Atorvastatin Calcium (Lipitor) 10 mg PO DIN [facility] Last Admin: 06/29/17 18:06 Dose: 10 mg Docusate Sodium (Colace) 100 mg PO BID [facility] Duloxetine HCl (Cymbalta) 30 mg PO DAILY [facility] Last Admin: 06/29/17 09:23 Dose: 30 mg Furosemide (Lasix) 40 mg PO DAILY [facility] Last Admin: 06/29/17 09:21 Dose: 40 mg Gemfibrozil (Lopid) 600 mg PO BID [facility] Last Admin: 06/29/17 18:06 Dose: 600 mg Glipizide (Glucotrol Xl) 10 mg PO DAILY [facility] Last Admin: 06/29/17 09:22 Dose: 10 mg Hydromorphone HCl (Dilaudid) 0.5 mg IVP Q4H PRN PRN Reason: Pain, moderate (4-7) Last Admin: 06/30/17 06:56 Dose: 0.5 mg Re-Assess: [facility] Pain Assessment Document 06/30/17 07:56 RS (Rec: 06/30/17 08:11 RS [email or web address]) Pain Reassessment Is this a pain reassessment? Yes Sleep Is patient sleeping during reassessment? Yes Lisinopril (Zestril) 10 mg PO DAILY [facility] Last Admin: 06/29/17 09:21 Dose: 10 mg Metformin HCl (Glucophage Xr) 1,000 mg PO Q12 [facility] Last Admin: 06/29/17 21:31 Dose: 1,000 mg Metoprolol Tartrate (Lopressor) 25 mg PO DAILY [facility] Last Admin: 06/29/17 09:23 Dose: 25 mg Montelukast Sodium (Singulair) 10 mg PO DAILY [facility] Last Admin: 06/29/17 09:21 Dose: 10 mg Levocetirizine Dihydrochloride [ Xyzal] 5 Mg (Home Med) 5 mg PO DAILY [facility] Last Admin: 06/29/17 09:52 Dose: Nicotine [Nicotrol] (10 Mg (Home Med)) 10 mg IH Q6 [facility] Last Admin: 06/30/17 06:22 Dose: Ondansetron HCl (Zofran Tab) 4 mg PO Q8H PRN PRN Reason: Nausea/Vomiting Oxycodone HCl (Oxycontin Extended Release Tab) 20 mg PO Q12 [facility] Pantoprazole Sodium (Protonix Ec Tab) 40 mg PO DAILY [facility] Last Admin: 06/29/17 09:22 Dose: 40 mg Pregabalin (Lyrica) 75 mg PO DAILY [facility] Last Admin: 06/29/17 09:21 Dose: 75 mg Quetiapine Fumarate (Seroquel) 200 mg PO HS [facility] PRN Reason: Protocol Last Admin: 06/29/17 21:30 Dose: 200 mg Re-Assess: Reassess Psych Meds Document 06/29/17 22:30 RR (Rec: 06/29/17 23:22 RR [id number]) Reassess Psych Med Effective Spironolactone (Aldactone) 25 mg PO DAILY [facility] Last Admin: 06/29/17 09:22 Dose: 25 mg Discontinued Medications Hydromorphone HCl (Dilaudid) 2 mg IVP STAT [facility] Stop: 06/28/17 05:31 Last Admin: 06/28/17 06:23 Dose: 2 mg Re-Assess: Pain Assessment Document 06/28/17 07:23 RR (Rec: 06/28/17 22:56 RR [id number]) Pain Reassessment Is this a pain reassessment? Yes Sleep Is patient sleeping during reassessment? Yes Pain Scale Used Pain Scale Used FLACC Hydromorphone HCl (Dilaudid) 2 mg IVP STAT [facility] Stop: 06/28/17 06:59 Last Admin: 06/28/17 07:05 Dose: 2 mg Re-Assess: [facility] Pain Assessment Document 06/28/17 08:05 RR (Rec: 06/28/17 22:56 RR [id number]) Pain Reassessment Is this a pain reassessment? Yes Sleep Is patient sleeping during reassessment? Yes Pain Scale Used Pain Scale Used [facility] Hydromorphone HCl (Dilaudid) 1 mg IVP Q4H PRN PRN Reason: Pain, moderate (4-7) Last Admin: 06/29/17 18:10 Dose: 1 mg Re-Assess: Pain Assessment Document 06/29/17 19:10 RS (Rec: 06/29/17 19:29 RS [email or web address]) Pain Reassessment Is this a pain reassessment? Yes Sodium Chloride (Sodium Chloride 0.9%) 1,000 mls @ 100 mls/hr IV .Q10H [facility] Stop: 06/28/17 15:28 Last Admin: 06/28/17 06:24 Dose: 100 mls/hr Sodium Chloride (Sodium Chloride 0.9%) 1,000 mls @ 100 mls/hr IV .Q10H [facility] Stop: 06/28/17 16:59 Last Admin: 06/29/17 05:28 Dose: Lisinopril (Zestril) 10 mg PO DAILY [facility] Last Admin: 06/29/17 05:28 Dose: Ondansetron HCl (Zofran Inj) 4 mg IVP STAT [facility] Stop: 06/28/17 05:30 Last Admin: 06/28/17 06:23 Dose: 4 mg Oxycodone HCl (Oxycontin Extended Release Tab) 10 mg PO Q12 [facility] Stop: 07/01/17 10:01 Last Admin: 06/29/17 21:29 Dose: 10 mg Re-Assess: Pain Assessment Document 06/29/17 22:29 RR (Rec: 06/29/17 23:22 RR [id number]) Pain Reassessment Is this a pain reassessment? Yes Sleep Is patient sleeping during reassessment? Yes Pain Scale Used Pain Scale Used [facility] Pantoprazole Sodium (Protonix Ec Tab) 40 mg PO DAILY [facility] Last Admin: 06/29/17 05:28 Dose: Not Given Non-Admin Reason: Patient Refused - Scribe Statement The provider has reviewed the documentation as recorded by the Becca Finch Provider Scribe Attestation: All medical record entries made by the Aribdorothy were at my direction and personally dictated by me. I have reviewed the chart and agree that the record accurately reflects my personal performance of the history, physical exam, medical decision making, and the department course for this patient. I have also personally directed, reviewed, and agree with the discharge instructions and disposition. Disposition/Present on Arrival - Present on Arrival Any Indicators Present on Arrival: No History of DVT/PE: No History of Uncontrolled Diabetes: No Urinary Catheter: No History of Decub. Ulcer: No History Surgical Site Infection Following: None - Disposition Have Diagnosis and Disposition been Completed?: Yes Diagnosis: Abdominal pain, Malignancies Disposition: HOSPITALIZED Disposition Time: 07:00 Condition: FAIR
[2017-06-28 06:17] LABS: EOS # 0.1 (0.0-0.7); EOS % 0.8 % (1.5-5.0); GRAN # 7.95 (1.4-6.5); GRAN % 85.6 % (50.0-68.0); HEMATOCRIT 32.3 % (36.0-48.0); LYMPH # 1.2 (1.2-3.4); LYMPH % 12.6 % (22.0-35.0); MEAN CELL VOLUME 81.8 fl (80.0-105.0); MEAN CORPUSCULAR HEMOGLOBIN 27.3 pg (25.0-35.0); MEAN CORPUSCULAR HGB CONC 33.4 g/dl (31.0-37.0); MONO # 0.1 (0.1-0.6); RED CELL DISTRIBUTION WIDTH 15.3 % (11.5-14.5); WHITE BLOOD COUNT 9.3 10^3/ul (4.5-11.0)
[2017-06-28 06:22] LABS: INR 1.12 (0.93-1.08); PARTIAL THROMBOPLASTIN TIME 28.4 Seconds (23.7-30.8)
[2017-06-28 06:35] LABS: ALKALINE PHOSPHATASE 162 U/L (38-133); ALT/SGPT 30 U/L (7-56); AMYLASE 58 U/L (35-125); AST/SGOT 109 U/L (15-39); BILIRUBIN,TOTAL 2.3 mg/dL (0.2-1.3); BLOOD UREA NITROGEN 10 mg/dL (7-21); CALCIUM 9.5 mg/dL (8.4-10.5); CARBON DIOXIDE 26 mmol/L (21-33); CHLORIDE 106 mmol/L (98-107); GFR AFRICAN-AMERICAN > 60; GLUCOSE,RANDOM 128 mg/dL (70-110); LIPASE 111 U/L (23-300); POTASSIUM 3.5 mmol/L (3.6-5.0); SODIUM 143 mmol/L (132-148); TOTAL PROTEIN 7.8 g/dL (5.8-8.3)
[2017-06-28 06:53] LABS: TROPONIN I < 0.01 ng/mL
--- NOTE | 2017-06-28 07:57 | CT ---
EXAM: CT Abdomen and Pelvis Without Intravenous Contrast EXAM DATE/TIME: 06/28/2017 5:29 AM CLINICAL HISTORY: 66 years old, female; Pain; Abdominal pain; Tenderness; Lower; Additional info: Abd pain TECHNIQUE: Axial computed tomography images of the abdomen and pelvis without intravenous contrast. All CT scans at this facility use one or more dose reduction techniques, viz.: automated exposure control; ma/kV adjustment per patient size (including targeted exams where dose is matched to indication; i.e. head); or iterative reconstruction technique. Coronal and sagittal reformatted images were created and reviewed. COMPARISON: CT - ABD PELVIS W/O PO OR IV CONT 06/22/2017 5:29:03 AM FINDINGS: Lower thorax: Again identified are multiple noncalcified nodules in both lower lobes and right middle lobe. Largest remains in the left lower lobe of about 2.5 cm. Right cardiophrenic angle nodes without change. ABDOMEN: Liver: Multiple hepatic metastases, largest in the right lobe. Gallbladder and bile ducts: Biliary stent. Pneumobilia. No calcified stones. No ductal dilation. Pancreas: Mass in head of pancreas. No ductal dilation. Spleen: Unremarkable. No splenomegaly. Adrenals: Unremarkable. No mass. Kidneys and ureters: Left renal cyst. No obstructing stones. No hydronephrosis. Stomach and bowel: Colonic diverticula. No evidence of acute diverticulitis. Partial right colectomy. Enterocolic anastomosis right side of abdomen. Appendix: See above. PELVIS: Bladder: Unremarkable. No stones. Reproductive: Calcified uterine myoma. ABDOMEN and PELVIS: Intraperitoneal space: Unremarkable. No free air. No significant fluid collection. Bones/joints: No osteolytic or blastic lesion. Soft tissues: Mild subcutaneous edema right medial buttock. Vasculature: Unremarkable. No abdominal aortic aneurysm. Lymph nodes: Gastrohepatic, prepancreatic and retrocaval nodes without change. IMPRESSION: 1. Pancreatic mass with hepatic, pulmonary and arlet metastases. Unchanged. 2. No acute abnormality. 3. Remaining findings as above.
[2017-06-28] MEDS ORDERED: Pantoprazole 40 mg EC Tab PO SCH (10:00)
[2017-06-28] MEDS: oxyCODONE 10 mg ER Tab (oxyCONTIN) PO SCH ×2 (10:50→21:34)
[2017-06-28] MEDS: HYDROmorphone 1 mg/ml ISec IVP PRN ×2 (14:52→19:44)
--- NOTE | 2017-06-28 15:38 | CARD ---
APPROVED REPORT EKG Measurement Heart [id number] <Conclusion> Sinus tachycardia Nonspecific ST and T wave abnormality Abnormal ECG
[2017-06-28] MEDS: GlipiZIDE 10 mg SR Tab PO SCH (17:29)
[2017-06-28] MEDS: NICOTINE 10 MG IH SCH ×2 (17:32→22:57)
[2017-06-29] MEDS: NICOTINE 10 MG IH SCH ×5 (00:36→23:21)
--- NOTE | 2017-06-29 07:19 | CP.PCM.CON ---
History of Present Illness - History of Present Illness History of Present Illness: PATIENT SEEN . FULL CONSULT WILL BE DICTATED Past Patient History - Infectious Disease Hx of Infectious Diseases: None - Tetanus Immunizations Tetanus Immunization: Unknown - Past Medical History & Family History Past Medical History?: Yes - Past Social History Smoking Status: Current Some Days Smoker - CARDIAC Hx Hypertension: Yes - PULMONARY Hx Emphysema: Yes - NEUROLOGICAL Hx Transient Ischemic Attacks (TIA): Yes - HEENT Hx HEENT Problems: No - RENAL Hx Chronic Kidney Disease: No - ENDOCRINE/METABOLIC Hx Diabetes Mellitus Type 1: Yes - HEMATOLOGICAL/ONCOLOGICAL Hx Cancer: Yes Hx Chemotherapy: Yes Hx Hepatitis C: Yes - INTEGUMENTARY Hx Dermatological Problems: No - MUSCULOSKELETAL/RHEUMATOLOGICAL Hx Degenerative Joint Disease: Yes Hx Falls: Yes - GASTROINTESTINAL Hx Gastrointestinal Disorders: Yes (COLON SURGERY,APPENDECTOMY,COLON RESECTION, LIVER BX) Hx Gastroesophageal Reflux: Yes - GENITOURINARY/GYNECOLOGICAL Hx Hematuria: Yes - PSYCHIATRIC Hx Anxiety: Yes Hx Substance Use: Yes - SURGICAL HISTORY Hx Appendectomy: Yes Other/Comment: colon resection, liver bx. R chest port - ANESTHESIA Hx Anesthesia Reactions: No Hx Malignant Hyperthermia: No Meds Allergies/Adverse Reactions: Allergies Allergy/AdvReac Type Severity Reaction Status Date / Time No Known Allergies Allergy Verified 04/21/17 14:19 - Medications Medications: Current Medications Alprazolam (Xanax) 0.5 mg PO DAILY [facility] PRN Reason: Protocol Last Admin: 06/28/17 10:50 Dose: 0.5 mg Alprazolam (Xanax) 1 mg PO HS [facility] PRN Reason: Protocol Last Admin: 06/28/17 21:33 Dose: 1 mg Atorvastatin Calcium (Lipitor) 10 mg PO DIN [facility] Last Admin: 06/28/17 17:31 Dose: 10 mg Duloxetine HCl (Cymbalta) 30 mg PO DAILY [facility] Last Admin: 06/28/17 10:47 Dose: 30 mg Furosemide (Lasix) 40 mg PO DAILY [facility] Last Admin: 06/28/17 10:47 Dose: 40 mg Gemfibrozil (Lopid) 600 mg PO BID [facility] Last Admin: 06/28/17 17:31 Dose: 600 mg Glipizide (Glucotrol Xl) 10 mg PO DAILY [facility] Last Admin: 06/28/17 17:29 Dose: 10 mg Hydromorphone HCl (Dilaudid) 1 mg IVP Q4H PRN PRN Reason: Pain, moderate (4-7) Last Admin: 06/28/17 19:44 Dose: 1 mg Lisinopril (Zestril) 10 mg PO DAILY [facility] Last Admin: 06/28/17 10:51 Dose: 10 mg Metformin HCl (Glucophage Xr) 1,000 mg PO Q12 [facility] Last Admin: 06/28/17 21:33 Dose: 1,000 mg Metoprolol Tartrate (Lopressor) 25 mg PO DAILY [facility] Last Admin: 06/28/17 10:49 Dose: 25 mg Montelukast Sodium (Singulair) 10 mg PO DAILY [facility] Last Admin: 06/28/17 10:50 Dose: 10 mg Levocetirizine Dihydrochloride [ Xyzal] 5 Mg (Home Med) 5 mg PO DAILY [facility] Last Admin: 06/29/17 05:27 Dose: Not Given Nicotine [Nicotrol] (10 Mg (Home Med)) 10 mg IH Q6 [facility] Last Admin: 06/29/17 05:29 Dose: Not Given Oxycodone HCl (Oxycontin Extended Release Tab) 10 mg PO Q12 [facility] Stop: 07/01/17 10:01 Last Admin: 06/28/17 21:34 Dose: 10 mg Pantoprazole Sodium (Protonix Ec Tab) 40 mg PO DAILY [facility] Pregabalin (Lyrica) 75 mg PO DAILY [facility] Last Admin: 06/28/17 10:50 Dose: 75 mg Quetiapine Fumarate (Seroquel) 200 mg PO HS [facility] PRN Reason: Protocol Last Admin: 06/28/17 21:32 Dose: 200 mg Spironolactone (Aldactone) 25 mg PO DAILY [facility] Last Admin: 06/28/17 10:47 Dose: 25 mg Results - Vital Signs Recent Vital Signs: Last Vital Signs Temp 98 F 06/28/17 16:00 Pulse 93 H 06/28/17 16:00 Resp 19 06/28/17 16:00 BP 146/95 H 06/28/17 16:00 Pulse Ox 97 06/28/17 16:00 - Labs Result Diagrams: 06/28/17 06:00 06/28/17 06:00 Labs: Laboratory Results - last 24 hr 06/28/17 06/28/17 11:36 15:51 POC Glucose (mg/dL) 155 H 117 H
[2017-06-29] MEDS: HYDROmorphone 1 mg/ml ISec IVP PRN ×3 (08:05→18:10)
--- NOTE | 2017-06-29 09:14 | HP ---
CHIEF COMPLAINT: Abdominal pain, nausea and vomiting. HISTORY OF PRESENT ILLNESS: Ms. Hortensia Love is a 66-year-old female with a history of hepatis C, liver mass,has a pancreatic cancer, emphysema, hypertension, obstructive sleep apnea syndrome, history of abdominal surgery long time ago by visit doctor, Dr. Monsivais and Dr. Farhad Bowie; diabetes mellitus, noncompliance of smoking and drinking alcohol, came the emergency room via EMS for abdominal pain and intractable nausea and vomiting. The patient states that she has been experiencing upper abdominal pain associated with nausea, vomiting and decreased appetite secondary to vomiting. Denies any fevers, chills, chest pain, shortness of breath, urinary symptom, back pain, neck pain, hematuria or hematochezia. PAST MEDICAL HISTORY: Hypertension, emphysema, TIA, diabetes mellitus type 1, chemotherapy, hepatitis C, fall, colon surgery, anxiety, appendectomy, colon resection, history of obstructive jaundice and biliary stents. FAMILY HISTORY: Father and mother noncontributory. HABITS: Current smoking. History of alcohol. History of ethanol abuse, substance abuse, history of cocaine and benzodiazepine abuse. States that it has been clean now. ALLERGIES: THE PATIENT IS NOT ALLERGIC TO ANY MEDICATIONS. HOME MEDICATIONS: Xanax, Cymbalta, Nexium, Lasix, Pepcid, glipizide, Zestril, Glucophage, Lopressor, Singular, Seroquel, and Aldactone. REVIEW OF SYSTEMS: The patient was seen and examined at the bedside. Daughter is from [facility], granddaughter and son was sitting on the beside. Her nausea and vomiting is better. Started on healthy diet. Still having abdominal pain. According to her, pain medications not working. No rash. No headache or dizziness. Normal back and neck. No dysuria. No frequency. No hematuria. No urine or protein change. PHYSICAL EXAMINATION: VITAL SIGNS: Temperature 97.9, pulse of 105, respiratory rate 20, blood pressure 120/94 and pulse oximetry 100. HEENT: Head is normocephalic and atraumatic. Eyes, PERRLA. Extraocular muscles intact. Conjunctivae clear. Nose patent. NECK: Supple. No carotid bruit, JVD or thyromegaly. CHEST: Bilaterally symmetrical. HEART: S1 and S2 positive. LUNG: Clear to auscultation. ABDOMEN: Soft. Bowel sounds positive. No organomegaly. EXTREMITIES: No edema. No cyanosis. NEUROLOGIC: The patient is awake and alert. Moving all 4 extremities. No focal deficit. LABORATORY DATA: White blood cell 9.3, hemoglobin 10.8, hematocrit 32.3 and platelets 256. Sodium of 143, potassium 3.5, BUN 10, creatinine 0.7, glucose 117, random glucose 128. Bilirubin 2.3. ASSESSMENT AND PLAN: Ms. Hortensia Love is 66 years old lady with hypokalemia, uncontrolled diabetes mellitus and abnormal liver function test and we will see about trending; anemia; history of hepatitic C; liver tumor; recently diagnosed pancreatic cancer; emphysema; hypertension; has obstructive jaundice; recently got biliary stents. Liver function is now trending down. Chronic obstructive pulmonary disease, obstructive sleep apnea syndrome. Discussion done with the family. They will decide about the power of litigation attorney and we will talk to patient about that also. Gastrointestinal and deep vein thrombosis prophylaxis. Repeat labs. We will follow Georgina Ferrara MD MTDD
[2017-06-29] MEDS: oxyCODONE 10 mg ER Tab (oxyCONTIN) PO SCH ×2 (09:21→21:29)
[2017-06-29] MEDS: GlipiZIDE 10 mg SR Tab PO SCH (09:22)
[2017-06-29] MEDS: Pantoprazole 40 mg EC Tab PO SCH (09:22)
--- NOTE | 2017-06-30 02:33 | PN ---
DATE: SUBJECTIVE: The patient is a 66-year-old female. The patient was seen and examined at the bedside, family was around. No nausea, vomiting or diarrhea. No hematuria or hematochezia. No swelling of the legs. No chest pain. No palpitation. No headache. No dizziness. Still having abdominal pain. PHYSICAL EXAMINATION: VITAL SIGNS: Temperature 97.7, pulse 98, blood pressure 109/69, respiratory rate 20. HEENT: Head is normocephalic and atraumatic. Eyes; PERRLA. Extraocular muscles are intact. Conjunctivae are clear. Nose patent. Mucous membrane moist. NECK: Supple. No carotid bruits. No JVD or thyromegaly. CHEST: Bilaterally symmetrical. HEART: S1 and S2 positive. LUNGS: Clear to auscultation. ABDOMEN: Soft. Bowel sounds positive. No organomegaly. EXTREMITIES: No edema. No cyanosis. NEUROLOGICAL: The patient is awake and alert. Moving all four extremities. No focal deficit. MEDICATIONS: Aldactone, Cymbalta,Dilaudid, metformin, glipizide, Lasix, Xyzal, Lipitor, Lopid, Lopressor, Lyrica, Nicoderm patch, OxyContin 10 mg, Protonix, Glucotrol and Lasix. LABORATORY DATA: We do not have recent labs today, but reviewed old labs. ASSESSMENT AND PLAN: Ms. Ivan Bazan is a 66-year-old lady with anemia and uncontrolled diabetes mellitus, came in with nausea and vomiting, uncontrolled intraabdominal pain, history of obstructive jaundice, has biliary stents placed in, history of electrolyte imbalance, abnormal liver function test, has hepatitis C, liver tumor, recently diagnosed with pancreatic cancer, emphysema. Discussion done with the family about making power of assistant city attorney. The patient has many children and spouses of the children and grand kids. They are working on power of assistant city attorney. Pain management for consult with Dr. Jerry Escobar. Repeat labs. Advance dietary following. Georgina Ferrara MD
[2017-06-30] MEDS: NICOTINE 10 MG IH SCH ×3 (06:22→17:43)
[2017-06-30] MEDS: HYDROmorphone 0.5 mg/0.5 ml ISec IVP PRN ×2 (06:56→14:06)
[2017-06-30] MEDS: GlipiZIDE 10 mg SR Tab PO SCH (09:29)
[2017-06-30] MEDS: oxyCODONE 20 mg ER Tab (oxyCONTIN) PO SCH ×2 (09:31→21:01)
[2017-06-30] MEDS: Pantoprazole 40 mg EC Tab PO SCH (09:33)
[2017-07-01] MEDS: NICOTINE 10 MG IH SCH ×4 (01:00→17:25)
--- NOTE | 2017-07-01 01:09 | PN ---
DATE: SUBJECTIVE: The patient is a 66 years old female. The patient is seen and examined on the bedside, looking comfortable, sitting. Her aunt and other family members are sitting on the bedside. No nausea or vomiting. No diarrhea. No hematuria. No hematochezia. No swelling of the legs. No chest pain or palpitation. No headache or dizziness. Still having abdominal pain. Appetite is poor. PHYSICAL EXAMINATION: VITAL SIGNS: Temperature 97.4, pulse 101, blood pressure 110/74 and respiratory rate is 20. HEENT: Head is normocephalic and atraumatic. Eyes; PERRLA. Extraocular muscles intact. Conjunctivae clear. Nose is patent. Mucus membranes moist. NECK: Supple. No carotid bruits. No JVD or thyromegaly. CHEST: Bilaterally symmetrical. HEART: S1 and S2 positive. LUNGS: Clear to auscultation. ABDOMEN: Soft. Bowel sounds positive. No organomegaly. EXTREMITIES: No edema. No cyanosis. NEUROLOGIC: The patient is awake and alert. Moving all 4 extremities. No focal deficit. MEDICATIONS: Aldactone, Colace, Cymbalta, Dilaudid, Glucophage, Glucotrol, Lasix, Xyzal, Lipitor, Lopid, Lopressor, Lyrica, Nicotrol, oxycodone, Protonix, Seroquel, Singulair, Xanax, Zestril and Zofran. LABORATORY DATA: We do not have recent labs today, but I reviewed old labs. Glucose 130 and 127. ASSESSMENT AND PLAN: Ms. Hortensia Love is a 66 years old lady with hypokalemia, diabetes mellitus, abnormal liver function test, anemia, history of hepatitis C, liver density, uncontrolled abdominal pain, history of biliary obstruction status post biliary stenting, obstructive jaundice and history of electrolyte imbalance, improving. She has been diagnosed with pancreatic cancer, emphysema, chronic obstructive pulmonary disease, history of heavy smoking all of her life. Now, we are adjusting pain management. Gastrointestinal and deep venous thrombosis prophylaxis. Repeat labs. We will follow. Georgina Ferrara MD
[2017-07-01] MEDS: HYDROmorphone 0.5 mg/0.5 ml ISec IVP PRN ×2 (02:38→11:43)
[2017-07-01 09:16] LABS: HEMATOCRIT 29.2 % (36.0-48.0); MEAN CELL VOLUME 81.6 fl (80.0-105.0); MEAN CORPUSCULAR HEMOGLOBIN 27.4 pg (25.0-35.0); MEAN CORPUSCULAR HGB CONC 33.6 g/dl (31.0-37.0); MEAN PLATELET VOLUME 9.9 fl (7.0-11.0); RED CELL DISTRIBUTION WIDTH 15.4 % (11.5-14.5)
[2017-07-01 09:18] LABS: BLOOD UREA NITROGEN 12 mg/dL (7-21); CALCIUM 9.3 mg/dL (8.4-10.5); CARBON DIOXIDE 24 mmol/L (21-33); CHLORIDE 104 mmol/L (98-107); GFR AFRICAN-AMERICAN > 60; POTASSIUM 3.6 mmol/L (3.6-5.0); SODIUM 138 mmol/L (132-148)
[2017-07-01 09:28] LABS: GLUCOSE,RANDOM 47 mg/dL (70-110); WHITE BLOOD COUNT 2.4 10^3/ul (4.5-11.0)
[2017-07-01] MEDS: oxyCODONE 20 mg ER Tab (oxyCONTIN) PO SCH ×2 (09:51→21:55)
[2017-07-01] MEDS: Pantoprazole 40 mg EC Tab PO SCH (09:53)
[2017-07-01] MEDS: GlipiZIDE 10 mg SR Tab PO SCH (17:22)
[2017-07-02] MEDS: NICOTINE 10 MG IH SCH ×3 (00:07→14:27)
[2017-07-02] MEDS: HYDROmorphone 0.5 mg/0.5 ml ISec IVP PRN (04:21)
--- NOTE | 2017-07-02 07:33 | PN ---
DATE: SUBJECTIVE: The patient was seen and examined at the bedside, looking comfortable, complaining about pain in the left side of the abdomen, and feeling gassy. Family was around the patient. No hematuria or hematochezia. PHYSICAL EXAMINATION: VITAL SIGNS: Temperature 98.3, pulse 92, blood pressure 102/62, and respiratory rate is 20. HEENT: Head is normocephalic and atraumatic. Eyes; PERRLA. Extraocular muscles are intact. Conjunctivae clear. Nose is patent. Mucous membranes moist. NECK: Supple. No carotid bruits. No thyromegaly. CHEST: Bilaterally symmetrical. HEART: S1 and S2 positive. LUNGS: Clear to auscultation. ABDOMEN: Soft. Tender in the left side. No organomegaly. EXTREMITIES: No edema. No cyanosis. NEUROLOGIC: The patient is awake and alert. Follow simple commands. Moving all four extremities. MEDICATIONS: Aldactone, Colace, Cymbalta, Dilaudid, Glucophage, Glucotrol, Lasix, Xyzal, Lipitor, Lopid, Lyrica, nicotine, oxycodone, Protonix, and Seroquel. LABORATORY DATA: White blood cell 2.4, hemoglobin 9.8, hematocrit 29.2, and platelets 15.2. Sodium 138, potassium 3.6, BUN 12, creatinine 0.7. Glucose 86, 140, 137, 58, 44, and 47. ASSESSMENT AND PLAN: This is a 66-year-old lady with leukopenia, anemia, and hyperglycemia, seen by Dr. Navarrete, boot and saddle repair person and the patient's crm administrator. The patient has history of hypertension, emphysema, transient ischemic attack, chronic kidney disease, diabetes mellitus, had cancer and getting chemotherapy, has hepatitis C positive. GI and DVT prophylaxis. Repeat labs. Discussion done with the family and the patient. We will follow up. Georgina Ferrara MD
[2017-07-02] MEDS: GlipiZIDE 10 mg SR Tab PO SCH (09:31)
[2017-07-02] MEDS: Pantoprazole 40 mg EC Tab PO SCH (09:36)
[2017-07-02] MEDS: oxyCODONE 20 mg ER Tab (oxyCONTIN) PO SCH (09:36)
[2017-07-02 13:18] LABS: ALB/GLOB RATIO 0.8 (1.1-1.8); ALKALINE PHOSPHATASE 241 U/L (38-133); ALT/SGPT 54 U/L (7-56); AST/SGOT 98 U/L (15-39); BASO # 0.01 K/mm3 (0.0-2.0); BASO % 0.4 % (0.0-3.0); BILIRUBIN,TOTAL 2.5 mg/dL (0.2-1.3); BLOOD UREA NITROGEN 12 mg/dL (7-21); CALCIUM 9.6 mg/dL (8.4-10.5); CARBON DIOXIDE 23 mmol/L (21-33); CHLORIDE 101 mmol/L (98-107); EOS # 0.1 (0.0-0.7); GFR AFRICAN-AMERICAN > 60; GLUCOSE,RANDOM 122 mg/dL (70-110); GRAN # 1.43 (1.4-6.5); HEMATOCRIT 29.4 % (36.0-48.0); LYMPH # 0.6 (1.2-3.4); LYMPH % 24.7 % (22.0-35.0); MEAN CELL VOLUME 80.5 fl (80.0-105.0); MEAN CORPUSCULAR HEMOGLOBIN 27.1 pg (25.0-35.0); MEAN CORPUSCULAR HGB CONC 33.7 g/dl (31.0-37.0); MEAN PLATELET VOLUME 9.4 fl (7.0-11.0); MONO # 0.2 (0.1-0.6); MONO % 7.9 % (1.0-6.0); POTASSIUM 3.5 mmol/L (3.6-5.0); RED CELL DISTRIBUTION WIDTH 15.5 % (11.5-14.5); SODIUM 137 mmol/L (132-148); TOTAL PROTEIN 7.9 g/dL (5.8-8.3)
[2017-07-02 13:29] LABS: WHITE BLOOD COUNT 2.3 10^3/ul (4.5-11.0)
[2017-07-02 16:20] VITALS: BP 111/75; PULSE 91; RESP 18; TEMP 97.8; O2SAT 94
--- NOTE | 2017-07-02 21:44 | CP.PCM.PN ---
Subjective - Date & Time of Evaluation Date of Evaluation: 07/02/17 Time of Evaluation: 16:20 - Subjective Subjective: p Objective - Vital Signs/Intake and Output Vital Signs (last 24 hours): Temp Pulse Resp BP Pulse Ox 97.8 F 91 H 18 111/75 94 L 07/02/17 16:19 07/02/17 16:19 07/02/17 16:19 07/02/17 16:19 07/02/17 16:19 - Labs Labs: 07/02/17 10:30 07/02/17 10:30 PT 12.1 Seconds (9.9-11.8) H 06/28/17 06:00 INR 1.12 (0.93-1.08) H 06/28/17 06:00 APTT 28.4 Seconds (23.7-30.8) 06/28/17 06:00 Assessment and Plan - Assessment and Plan (Free Text) Assessment: p
--- NOTE | 2017-07-16 11:58 | CON ---
DATE: CHIEF COMPLAINT: Abdominal pain, nausea, and vomiting. HISTORY OF PRESENT ILLNESS: The patient is a 71-year-old female with history of hepatitis C with pancreatic cancer with metastasis, hypertension, hypercholesterolemia, history of abdominal surgery, noncompliant of smoking and drinking came to [facility] Emergency Room with intractable abdominal pain, nausea, and vomiting. Denies fever, chills, hematuria, or hematochezia. We did a CAT scan of the abdomen and pelvis. Seen by Dr. Navarrete, oncologist, GI doctor Dr. Merchant, pain felt little bit better, discharged home with pain medication. Followup with primary physician, fitness sales associate, and pain management. Discussion done with the patient's family. PAST MEDICAL HISTORY: Hypertension, emphysema, TIA, diabetes mellitus type 1, chemotherapy, hepatitis C, fall, colon surgery, anxiety, appendectomy, colon resection, and history of obstructive jaundice, status post biliary stent done. FAMILY HISTORY: Father and mother noncontributory. HABITS: Still smoking, urged to quit. History of alcohol abuse. History of substance abuse; used to use cocaine and benzodiazepine, quit now. ALLERGIES: THE PATIENT IS NOT ALLERGIC TO ANY MEDICATIONS. HOME MEDICATIONS: Reviewed by me. REVIEW OF SYSTEMS: The patient is seen and examined at the bedside on 07/02/2017. Looking comfortable. No nausea, vomiting, or diarrhea. No hematuria. No hematochezia. No swelling of the legs. No chest pain. No palpitation. No headache. No dizziness. PHYSICAL EXAMINATION: VITAL SIGNS: Temperature 97.8, pulse 91, blood pressure 111/75, and respiratory rate 18. HEENT: Head is normocephalic. Eyes, PERRLA. Extraocular muscles intact. Conjunctivae clear. Nose patent. Mucous membranes moist. NECK: Supple. No carotid bruits, JVD, or thyromegaly. CHEST: Bilateral symmetrical. HEART: S1 and S2 positive. LUNGS: Clear to auscultation. ABDOMEN: Soft. Bowel sounds positive. No organomegaly. EXTREMITIES: No edema. No cyanosis. NEUROLOGIC: The patient is awake and alert. Moving all 4 extremities. No focal deficits. LABORATORY DATA: White blood cells 2.3, hemoglobin 9.9, hematocrit 29.4, and platelets 139. Sodium 137, potassium 3.5, BUN 12, creatinine 0.7, and glucose 125. ASSESSMENT AND PLAN: The patient is a 71-year-old lady with hypokalemia replaced, hyperglycemia, abnormal liver function tests, leukopenia, anemia, history of hepatitis C, chronic obstructive pulmonary disease, emphysema, has pancreatic cancer with metastasis to the liver and lungs. Dr. Navarrete is the fitness sales associate on the case. The patient already had one treatment of chemotherapy, history of chronic kidney disease, diabetes mellitus, and transient ischemic attack. GI and DVT prophylaxis given. Pain management given. Length of time discussion done with the patient's family. She has many children, most of them I had conversation. Discharged home with followup of pain management physician, fitness sales associate, and primary care physician. Prescription of pain medication given by nurse practitioner. We will follow up. Georgina Ferrara MD
--- NOTE | 2017-07-17 07:36 | DS ---
The patient is 66 years old female. The patient was discharged on 07/02/2017, I did discharge summary on 07/16/2017 for 07/02/2017, but by mistake, I put the wrong number and now that consultation dictated on 07/16/2107 is actually my discharge summary. Georgina Ferrara MD
== END 2017-07-02 17:32 | disposition home or self-care (01) | DRG 437 ==
LOC: ED 05:14 → ERH 06:59 → 3RNO 09:24 → OBSVTOIN 06-29 23:26
PROVIDERS: ADMIT Internal Medicine; ATTEND Internal Medicine
DX: C25.9 Malignant neoplasm of pancreas, unspecified (principal); E10.22 Type 1 diabetes mellitus with diabetic chronic kidney disease; J44.9 Chronic obstructive pulmonary disease, unspecified; I12.9 Hypertensive chronic kidney disease with stage 1 through stage 4 chronic kidney disease, or unspecified chronic kidney disease; D64.9 Anemia, unspecified; E10.65 Type 1 diabetes mellitus with hyperglycemia; G47.33 Obstructive sleep apnea (adult) (pediatric); F41.9 Anxiety disorder, unspecified; B19.20 Unspecified viral hepatitis C without hepatic coma; E87.6 Hypokalemia; Z86.73 Personal history of transient ischemic attack (TIA), and cerebral infarction without residual deficits; Z87.891 Personal history of nicotine dependence

== ENCOUNTER 2017-07-18 16:48 | Inpatient (IN) | payer MEDICARE, OTHER ==
[2017-07-18 16:48] VITALS: BMI 35.7
--- NOTE | 2017-07-18 17:10 | ED PDOC ---
Arrival/HPI - General Chief Complaint: Abdominal Pain Time Seen by Provider: 07/18/17 16:58 Historian: Patient - History of Present Illness Narrative History of Present Illness (Text): 07/18/17 17:07 A 66 year old female, whose past medical history includes pancreatic cancer, diverticulitis, liver lesion, hematuria, and overdose, presents to the emergency department for diffuse abdominal pain throughout, which has worsened over the past 2 days. The patient states she unable to hold anything down for the past 2 days. She also admits to having mild shortness of breath due to the vomiting and lower extremity swelling. She denies any chest pain, headaches, palpitations, fever, or any other complaints at this time. The patient reports she receives chemotherapy with no radiation every . Time/Duration: < week (x 2 days ) Symptom Onset: Other Symptom Course: Worsening Activities at Onset: Light, Eating Context: Home Past Medical History - Provider Review Nursing Documentation Reviewed: Yes - Infectious Disease Hx of Infectious Diseases: None - Tetanus Immunization Tetanus Immunization: Unknown - Cardiac Hx Cardiac Disorders: Yes Hx Hypertension: Yes - Pulmonary Hx Respiratory Disorders: Yes Hx Emphysema: Yes - Neurological Hx Neurological Disorder: Yes Hx Paralysis: No Hx Transient Ischemic Attacks (TIA): Yes - HEENT Hx HEENT Disorder: No - Renal Hx Renal Disorder: No - Endocrine/Metabolic Hx Endocrine Disorders: Yes Hx Diabetes Mellitus Type 1: Yes - Hematological/Oncological Hx Blood Disorders: Yes Hx Cancer: Yes Hx Chemotherapy: Yes Hx Hepatitis C: Yes - Integumentary Hx Dermatological Disorder: No - Musculoskeletal/Rheumatological Hx Musculoskeletal Disorders: Yes Hx Degenerative Joint Disease: Yes Hx Falls: Yes - Gastrointestinal Hx Gastrointestinal Disorders: Yes (COLON SURGERY,APPENDECTOMY,COLON RESECTION, LIVER BX) Hx Gastroesophageal Reflux: Yes - Genitourinary/Gynecological Hx Genitourinary Disorders: Yes Hx Hematuria: Yes - Psychiatric Hx Psychophysiologic Disorder: Yes Hx Anxiety: Yes Hx Depression: Yes Hx Substance Use: No - Past Surgical History Past Surgical History: No Previous - Surgical History Hx Appendectomy: Yes Other/Comment: colon resection, liver bx. R chest port - Anesthesia Hx Anesthesia Reactions: No Hx Malignant Hyperthermia: No - Suicidal Assessment Feels Threatened In Home Enviroment: No Family/Social History - Physician Review Nursing Documentation Reviewed: Yes Family/Social History: Unknown Family HX Smoking Status: Current Some Days Smoker Hx Alcohol Use: No Hx Substance Use: No Hx Substance Use Treatment: No Allergies/Home Meds Allergies/Adverse Reactions: Allergies No Known Allergies Allergy (Verified 07/18/17 16:58) Home Medications: Home Meds Medication Instructions Recorded Confirmed ALPRAZolam [Xanax] 1 mg PO HS 04/21/17 07/18/17 Alprazolam [Xanax] 0.5 mg PO DAILY 04/21/17 07/18/17 Furosemide [Lasix] 40 mg PO DAILY 04/21/17 07/18/17 Glipizide [Glipizide ER] 10 mg PO DAILY 04/21/17 07/18/17 Levocetirizine Dihydrochloride 5 mg PO DAILY 04/21/17 07/18/17 [Xyzal] Lisinopril [Zestril] 10 mg PO DAILY 04/21/17 07/18/17 Metoprolol Tartrate [Lopressor] 25 mg PO DAILY 04/21/17 07/18/17 Montelukast [Singulair] 10 mg PO DAILY 04/21/17 07/18/17 Spironolactone [Aldactone] 25 mg PO DAILY 04/21/17 07/18/17 Morphine Sulfate [Morphine Sulfate 15 mg PO BID 07/18/17 07/18/17 ER] Ondansetron HCl [Zofran] 8 mg PO Q6 PRN 07/18/17 07/18/17 Oxycodone HCl [Oxycontin] 10 mg PO Q4 PRN 07/18/17 07/18/17 Pregabalin [Lyrica] 75 mg PO DAILY 07/18/17 07/18/17 Review of Systems - Review of Systems Systems not reviewed;Unavailable: Language Barrier Constitutional: Fatigue. absent: Fevers Eyes: absent: Vision Changes ENT: absent: Hearing Changes Respiratory: SOB (mild ). absent: Wheezing Cardiovascular: absent: Palpitations, MCMAHON Gastrointestinal: Abdominal Pain (diffuse throughout ), Nausea, Vomiting, Appetite Changes Genitourinary Female: absent: Dysuria, Frequency Musculoskeletal: absent: Back Pain, Neck Pain Skin: absent: Rash Neurological: absent: Headache, Dizziness, Focal Weakness Endocrine: absent: Polydipsia Psychiatric: absent: Depression Physical Exam - Physical Exam Narrative Physical Exam (Text): 07/18/17 17:09 Head: Atraumatic. Normocephalic. Eyes: PERRL. EOMI. Sclera icteric. ENT: Mucous membranes are dry. No pharyngeal erythema or exudate. Neck: Supple. Full ROM. No JVD. No lymphadenopathy. No meningeal signs. Cardiovascular: Tachycardic. Systolic murmur. Pulmonary/Chest: Tachypneic. Diminished breath sounds bilaterally. No wheezing. No accessory muscle usage. Right sided chest wall port intact with no erythema or edema. Abdominal: Soft and non-distended. There is no tenderness. No rebound, guarding, or rigidity. No organomegaly. Good bowel sounds. Back: No CVA tenderness. No midline tenderness. Extremities: Bilateral symmetric nonpitting edema. No cyanosis. No clubbing. Full range of motion in all extremities. No calf tenderness. Skin: Skin is pale. No petechiae or purpura. Neurological: Alert, awake, and oriented. No asterixis. No meningeal signs. Neck supple. Motor and sensory exam intact. No facial droop. Psychiatric: Good eye contact. Normal interaction. Denies depression or suicidal ideation. Vital Signs Reviewed: Yes Vital Signs Temp Pulse Resp BP Pulse Ox 07/18/17 19:00 117 H 18 135/74 99 07/18/17 17:59 100 F H 07/18/17 17:00 98.2 F 130 H 17 130/102 H 100 Temperature: Afebrile Pulse: Tachycardic Appearance: Positive for: Ill-Appearing, Uncomfortable Pain Distress: Severe Mental Status: Positive for: Alert and Oriented X 3 Medical Decision Making ED Course and Treatment: 07/18/17 17:09 Impression: A 66 year old female with abdominal pain and vomiting. She has prior history of pancreatic cancer, metastatic Differential Diagnosis included but are not limited to: metastatic disease, bowel obstruction, gastritis, pulmonary disease, cad Plan: iv pain meds, zofran, labs, monitoring Prior Visits: Notes and results from previous visits were reviewed. The patient was last seen in the emergency department on 06/29/17 for abdominal pain and vomiting. The patient was hospitalized. Progress Notes: Patient's history reviewed with patient, son, and subsequently her oncologist as well as PMD. On exam, she has diffuse severe abdominal pain however abdomen soft and no peritoneal signs. Suspect pain secondary to her underlying malignancy. She reportedly has recently has biliary stents placed. LFTs and bilirubin elevated. She is also noted to be tachycardic but no hypoxia noted on room air. She denies calf pain or pleuritic pain. Patient is less tachycardic after iv pain medication and iv fluids. She is noted to have low WBC but is afebrile, nontoxic appearing on re- evaluation. Lovenox ordered for DVT/PE prophylaxis/treatment. However patient complaint of dyspnea I feel is somewhat related to her metastatic lung disease. Patient also with ST changes on EKG, initial troponin unremarkable continues to deny chest pain or shortness of breath on re-evaluation. CT ordered and reviewed. 07/18/17 21:53 Chest, Abdomen & Pelvis CT FINDINGS: Please note evaluation for underlying visceral lesions/abnormalities limited without intravenous contrast. Multiple bilateral lung nodules/masses. The previously noted largest nodule measured 2.5 cm, is now measured at approximately 2 cm. Enlarged pericardial nodes again visualized. No significant pleural or pericardial effusion. No pneumothorax. No focal consolidation. Multiple nodules/masses noted throughout the liver consistent with metastatic disease. Biliary stent again noted. Pneumobilia again noted. Mass again visualized in the head of the pancreas, limited evaluation without contrast. Gastrohepatic, peripancreatic and retrocaval nodes again visualized. Spleen appears unremarkable. Evidence of underlying nodularity involving adrenal glands, evaluation is limited without contrast. No renal calculus or hydronephrosis. 2.6 cm left renal cyst. Atherosclerosis. Evaluation of bowel limited without enteric contrast. No small bowel obstruction. Enterocolic anastomosis right side of the abdomen. Small bowel in the left upper quadrant demonstrates wall thickening. Evidence of bowel wall thickening involving the descending/sigmoid colon with increased prominence of adjacent mesenteric markings. The rectal wall appears thickened. Calcified uterine myomas. No significant layering ascites. No pneumoperitoneum. IMPRESSION: Again noted is mass in the head of the pancreas with arlet, hepatic and pulmonary metastases. Small bowel in the left upper quadrant demonstrates wall thickening. Evidence of bowel wall thickening involving the descending/sigmoid colon with increased prominence of adjacent mesenteric markings. The rectal wall appears thickened. Correlate for enterocolitis. Cannot exclude underlying lesion. Evaluation is limited without enteric contrast. Please see additional details/findings as above. Will need to monitor WBC but remains afebrile with BP stable, no cough, no rash , no vomiting/diarrhea. Case d/w Dr. Alem and treatment plan reviewed, also consulted her oncologist and reviewed findings with family. Pain improved but persists after medication. Hypokalemia noted. IV kcl ordered. - Lab Interpretations Lab Results: 07/18/17 17:05 07/18/17 17:05 Lab Results 07/18/17 17:15: Ammonia < 9 L 07/18/17 17:11: pO2 47, VBG pH 7.47 H, VBG pCO2 42.0, VBG HCO3 30.6 H, VBG Total CO2 31.9 H, VBG O2 Sat (Calc) 86.7 H, VBG Base Excess 6.2 H, VBG Potassium 2.9 L, Glucose 230 H, Lactate 2.0, FiO2 21.0, Sodium 135.0, Chloride 98.0, Venous Blood Potassium 2.9 L 07/18/17 17:05: PT 11.2, INR 1.04, APTT 37.3 H 07/18/17 17:05: WBC 1.7 L* D, RBC 4.15, Hgb 11.0 L, Hct 33.0 L, MCV 79.5 L, MCH 26.5, MCHC 33.3, RDW 15.6 H, Plt Count 133, MPV 9.6, Gran % 72.1 H, Lymph % ( Auto) 24.4, [place] % (Auto) 2.3, Eos % (Auto) 1.2 L, Baso % (Auto) 0.0, Gran # 1.24 L, Lymph # 0.4 L, [place] # 0.0 L, Eos # 0.0, Baso # 0.00 07/18/17 17:05: Sodium 135, Potassium 3.0 L, Chloride 96 L, Carbon Dioxide 29, Anion Gap 13, BUN 11, Creatinine 0.5, Est GFR ( Amer) > 60, Est GFR (Non- Af Amer) > 60, Random Glucose 215 H, Calcium 8.5, Magnesium 1.9, Total Bilirubin 1.9 H, AST 273 H, ALT 288 H, Alkaline Phosphatase 176 H, Lactate Dehydrogenase 1077 H, Total Creatine Kinase 21 L, Troponin I < 0.01, Total Protein 6.5, Albumin 3.2, Globulin 3.3, Albumin/Globulin Ratio 1.0 L, Amylase 74 , Lipase 141 - RAD Interpretation Radiology Orders: 07/18/17 17:10 CHEST PORTABLE [RAD] Stat Remarketing Manager: Radiologist - EKG Interpretation EKG Interpretation (Text): 07/18/17 18:13 EKG ainus tachycardia rate of [address] t wave abnormality Interpreted by ED Physician: Yes Type: 12 lead EKG - Medication Orders Current Medication Orders: Alprazolam (Xanax) 0.5 mg PO DAILY BRITTNEY PRN Reason: Protocol Alprazolam (Xanax) 1 mg PO HS BRITTNEY PRN Reason: Protocol Furosemide (Lasix) 40 mg PO DAILY BRITTNEY Glipizide (Glucotrol Xl) 10 mg PO DAILY BRITTNEY Hydromorphone HCl (Dilaudid) 0.5 mg IVP Q4H PRN PRN Reason: Pain, Mild (1-3) Last Admin: 07/18/17 20:39 Dose: 0.5 mg Insulin Human Regular (Humulin R Low) 0 units SC ACHS BRITTNEY PRN Reason: Protocol Lisinopril (Zestril) 10 mg PO DAILY BRITTNEY Metoprolol Tartrate (Lopressor) 25 mg PO DAILY BRITTNEY Montelukast Sodium (Singulair) 10 mg PO DAILY BRITTNEY Non-Formulary Medication (Levocetirizine Dihydrochloride [Xyzal]) 5 mg PO DAILY BRITTNEY Ondansetron HCl (Zofran Inj) 4 mg IVP Q6 PRN PRN Reason: Nausea/Vomiting Last Admin: 07/18/17 20:39 Dose: 4 mg Pantoprazole Sodium (Protonix Ec Tab) 40 mg PO DAILY BRITTNEY Pregabalin (Lyrica) 75 mg PO DAILY BRITTNEY Spironolactone (Aldactone) 25 mg PO DAILY BRITTNEY Discontinued Medications Enoxaparin Sodium (Lovenox) 70 mg SC STAT STA PRN Reason: Protocol Stop: 07/18/17 19:28 Hydromorphone HCl (Dilaudid) 2 mg IVP STAT STA Stop: 07/18/17 17:13 Last Admin: 07/18/17 17:25 Dose: 2 mg Sodium Chloride (Sodium Chloride 0.9%) 1,000 mls @ 1,000 mls/hr IV .Q1H STA Stop: 07/18/17 18:11 Last Admin: 07/18/17 17:25 Dose: 1,000 mls/hr Potassium Chloride (Potassium Chloride 10 Meq/100 Ml) 10 meq in 100 mls @ 100 mls/hr IVPB Q2H BRITTNEY Stop: 07/18/17 21:14 Last Admin: 07/18/17 18:18 Dose: 100 mls/hr Ondansetron HCl (Zofran Inj) 4 mg IVP ONCE ONE Stop: 07/18/17 17:13 Last Admin: 07/18/17 17:25 Dose: 4 mg Ondansetron HCl (Zofran Inj) 4 mg IVP ONCE ONE Stop: 07/18/17 17:46 Last Admin: 07/18/17 17:54 Dose: 4 mg - Scribe Statement The provider has reviewed the documentation as recorded by the Becca Garcia Provider Scribe Attestation: All medical record entries made by the Becca were at my direction and personally dictated by me. I have reviewed the chart and agree that the record accurately reflects my personal performance of the history, physical exam, medical decision making, and the department course for this patient. I have also personally directed, reviewed, and agree with the discharge instructions and disposition. Disposition/Present on Arrival - Present on Arrival Any Indicators Present on Arrival: No History of DVT/PE: No History of Uncontrolled Diabetes: No Urinary Catheter: No History of Decub. Ulcer: No History Surgical Site Infection Following: None - Disposition Have Diagnosis and Disposition been Completed?: Yes Diagnosis: Intractable abdominal pain, Intractable nausea and vomiting, Metastatic cancer , Elevated liver enzymes, Pulmonary nodules, Tachycardia, Hypokalemia, White blood cell abnormality Disposition: HOSPITALIZED Disposition Time: 19:00 Patient Plan: Admission, Telemetry Condition: SERIOUS
[2017-07-18] MEDS ORDERED: HYDROmorphone 2 mg/ml ISec IVP STA (17:12)
[2017-07-18] MEDS ORDERED: Sodium Chloride 0.9% 1,000 ML IV STA (17:12)
[2017-07-18 17:32] LABS: EOS % 1.2 % (1.5-5.0); GRAN # 1.24 (1.4-6.5); GRAN % 72.1 % (50.0-68.0); LYMPH # 0.4 (1.2-3.4); LYMPH % 24.4 % (22.0-35.0); MEAN CELL VOLUME 79.5 fl (80.0-105.0); MEAN CORPUSCULAR HEMOGLOBIN 26.5 pg (25.0-35.0); MEAN CORPUSCULAR HGB CONC 33.3 g/dl (31.0-37.0); MEAN PLATELET VOLUME 9.6 fl (7.0-11.0); MONO % 2.3 % (1.0-6.0); RED CELL DISTRIBUTION WIDTH 15.6 % (11.5-14.5)
[2017-07-18 17:33] LABS: VENOUS BLOOD GAS BASE EXCESS 6.2 mmol/L (0.0-2.0); VENOUS BLOOD PH 7.47 (7.32-7.43)
[2017-07-18 17:39] LABS: WHITE BLOOD COUNT 1.7 10^3/ul (4.5-11.0)
[2017-07-18 17:44] LABS: ALKALINE PHOSPHATASE 176 U/L (38-126); ALT/SGPT 288 U/L (7-56); AMYLASE 74 U/L (35-125); AST/SGOT 273 U/L (14-36); BILIRUBIN,TOTAL 1.9 mg/dL (0.2-1.3); BLOOD UREA NITROGEN 11 mg/dL (7-21); CALCIUM 8.5 mg/dL (8.4-10.5); CARBON DIOXIDE 29 mmol/L (21-33); CHLORIDE 96 mmol/L (98-107); GFR AFRICAN-AMERICAN > 60; GLUCOSE,RANDOM 215 mg/dL (70-110); LIPASE 141 U/L (23-300); MAGNESIUM 1.9 mg/dL (1.7-2.2); SODIUM 135 mmol/L (132-148); TOTAL PROTEIN 6.5 g/dL (5.8-8.3)
[2017-07-18 17:46] LABS: INR 1.04 (0.93-1.08); PARTIAL THROMBOPLASTIN TIME 37.3 Seconds (23.7-30.8)
--- NOTE | 2017-07-18 17:55 | RAD ---
HISTORY: Shortness of breath. COMPARISON: 06/22/2017. FINDINGS: LUNGS: Multiple pulmonary nodules again identified. These appear smaller and less conspicuous. PLEURA: No significant pleural effusion identified, no pneumothorax apparent. CARDIOVASCULAR: No radiographic findings to suggest acute or significant cardiovascular disease. Venous access catheter in stable, satisfactory position. OSSEOUS STRUCTURES: No significant abnormalities. VISUALIZED UPPER ABDOMEN: Normal. OTHER FINDINGS: None. IMPRESSION: Increase in size and number of pulmonary nodules compared to the prior study.
[2017-07-18 18:01] LABS: TROPONIN I < 0.01 ng/mL
[2017-07-18] MEDS ORDERED: Enoxaparin 80 mg Syringe SC STA (19:27)
[2017-07-18 19:43] LABS: URINE BILIRUBIN MODERATE (NEGATIVE); URINE BLOOD NEGATIVE (NEGATIVE); URINE GLUCOSE (UA) NEGATIVE (NEGATIVE); URINE KETONE TRACE mg/dL (NEGATIVE); URINE LEUKOCYTE ESTERASE NEGATIVE Leu/uL (NEGATIVE); URINE PROTEIN 100 mg/dL (<30 mg/dL)
[2017-07-18 19:45] LABS: URINE APPEARANCE SLIGHT-CLOUDY (CLEAR); URINE COLOR LIGHT BROWN (YELLOW)
[2017-07-18 19:46] LABS: URINE AMORPHOUS SEDIMENT TRACE; URINE BACTERIA MANY (NEG); URINE RBC 0 - 2 /hpf (0-2); URINE WBC 0 - 2 /hpf (0-6)
[2017-07-18] MEDS: HYDROmorphone 0.5 mg/0.5 ml ISec IVP PRN (20:39)
--- NOTE | 2017-07-18 21:34 | CT ---
EXAM: CT Chest, Abdomen and Pelvis Without Intravenous Contrast CLINICAL HISTORY: 66 years old, female; Pain; Abdominal pain and other: Metastic disease, worsening pain; Chest pain TECHNIQUE: Axial computed tomography images of the chest, abdomen and pelvis without intravenous contrast. All CT scans at this facility use one or more dose reduction techniques, viz.: automated exposure control; ma/kV adjustment per patient size (including targeted exams where dose is matched to indication; i.e. head); or iterative reconstruction technique. Coronal and sagittal reformatted images were created and reviewed. COMPARISON: No relevant prior studies available. FINDINGS: Please note evaluation for underlying visceral lesions/abnormalities limited without intravenous contrast. Multiple bilateral lung nodules/masses. The previously noted largest nodule measured 2.5 cm, is now measured at approximately 2 cm. Enlarged pericardial nodes again visualized. No significant pleural or pericardial effusion. No pneumothorax. No focal consolidation. Multiple nodules/masses noted throughout the liver consistent with metastatic disease. Biliary stent again noted. Pneumobilia again noted. Mass again visualized in the head of the pancreas, limited evaluation without contrast. Gastrohepatic, peripancreatic and retrocaval nodes again visualized. Spleen appears unremarkable. Evidence of underlying nodularity involving adrenal glands, evaluation is limited without contrast. No renal calculus or hydronephrosis. 2.6 cm left renal cyst. Atherosclerosis. Evaluation of bowel limited without enteric contrast. No small bowel obstruction. Enterocolic anastomosis right side of the abdomen. Small bowel in the left upper quadrant demonstrates wall thickening. Evidence of bowel wall thickening involving the descending/sigmoid colon with increased prominence of adjacent mesenteric markings. The rectal wall appears thickened. Calcified uterine myomas. No significant layering ascites. No pneumoperitoneum. IMPRESSION: Again noted is mass in the head of the pancreas with arlet, hepatic and pulmonary metastases. Small bowel in the left upper quadrant demonstrates wall thickening. Evidence of bowel wall thickening involving the descending/sigmoid colon with increased prominence of adjacent mesenteric markings. The rectal wall appears thickened. Correlate for enterocolitis. Cannot exclude underlying lesion. Evaluation is limited without enteric contrast. Please see additional details/findings as above.
[2017-07-18 22:19] LABS: VENOUS BLOOD GAS BASE EXCESS 6.3 mmol/L (0.0-2.0); VENOUS BLOOD PH 7.47 (7.32-7.43)
[2017-07-18] MEDS: Insulin Reg-LOW-Coverage SC SCH (22:55)
[2017-07-19] MEDS: HYDROmorphone 0.5 mg/0.5 ml ISec IVP PRN ×4 (02:10→18:18)
[2017-07-19] MEDS: Insulin Reg-LOW-Coverage SC SCH ×4 (07:54→22:23)
[2017-07-19] MEDS: GlipiZIDE 10 mg SR Tab PO SCH (10:26)
[2017-07-19] MEDS: Pantoprazole 40 mg EC Tab PO SCH (10:27)
--- NOTE | 2017-07-19 11:46 | CP.PCM.CON ---
<Amelia Wright - Last Filed: 07/19/17 11:44> History of Present Illness - History of Present Illness History of Present Illness: Seen and examined at the bedside earlier today, the chart was reviewed. Request for consult is for abdominal pain. HPI: This is a 66-year-old female with a medical history of hepatitis C, liver mass, peripancreatic cancer on chemotherapy, who is well known to our service, came to the emergency room with complaints of nausea and vomiting for the past few days, with worsening symptoms. denies any hematemesis or melena. Last chemotherapy was on . She does also complain of abdominal pain which is mostly to the mid lower abdomen. Denies any fever or chills, no complaints of diarrhea. She did have a bowel movement that was formed, denies any melena or bright red blood per rectum. No complaints of any fever or chills, shortness of breath or chest pain. On admission she did have a CT scan of the chest abdomen and pelvis which did show some left upper quadrant thickening in the small bowel and bowel wall thickening in the descending and sigmoid colon with prominent mesenteric markings, as well as rectal wall thickening, questionable for enterocolitis. PMH: Hepatitis C, liver mass, lung nodules, pancreatic cancer, fibromyalgia,DM, type II, GERD, COPD, TIA PSH: colon resection, appendectomy, EUS on 04/23/17 found many malignant lymph nodes, had FNA that (+) for adenicarcinoma, port placement 05/17/17, biliary stents FHX: noncontributory at this time Allergies: NKDA MEDS: reviewed as per MAR Social hx: former smoker, ETOH abuse in the past, h/o cocaine and benzo in the past ROS: systems reviewed with positive findings, see HPI Past Patient History - Infectious Disease Hx of Infectious Diseases: None - Tetanus Immunizations Tetanus Immunization: Unknown - Past Medical History & Family History Past Medical History?: Yes - Past Social History Smoking Status: Former Smoker - CARDIAC Hx Cardiac Disorders: Yes Hx Hypertension: Yes - PULMONARY Hx Respiratory Disorders: Yes Hx Emphysema: Yes - NEUROLOGICAL Hx Neurological Disorder: Yes Hx Transient Ischemic Attacks (TIA): Yes - HEENT Hx HEENT Problems: No - RENAL Hx Chronic Kidney Disease: No - ENDOCRINE/METABOLIC Hx Endocrine Disorders: Yes Hx Diabetes Mellitus Type 1: Yes - HEMATOLOGICAL/ONCOLOGICAL Hx Blood Disorders: Yes Hx Cancer: Yes Hx Chemotherapy: Yes (last dose 07/15/2017) Hx Hepatitis C: Yes - INTEGUMENTARY Hx Dermatological Problems: No - MUSCULOSKELETAL/RHEUMATOLOGICAL Hx Musculoskeletal Disorders: Yes Hx Degenerative Joint Disease: Yes Hx Falls: Yes - GASTROINTESTINAL Hx Gastrointestinal Disorders: Yes (COLON SURGERY,APPENDECTOMY,COLON RESECTION, LIVER BX) Hx Gastroesophageal Reflux: Yes - GENITOURINARY/GYNECOLOGICAL Hx Genitourinary Disorders: Yes Hx Hematuria: Yes - PSYCHIATRIC Hx Psychophysiologic Disorder: Yes Hx Anxiety: Yes Hx Depression: Yes - SURGICAL HISTORY Hx Appendectomy: Yes Other/Comment: colon resection, liver bx. R chest port - ANESTHESIA Hx Anesthesia Reactions: No Hx Malignant Hyperthermia: No Meds Allergies/Adverse Reactions: Allergies Allergy/AdvReac Type Severity Reaction Status Date / Time No Known Allergies Allergy Verified 07/18/17 16:58 - Medications Medications: Current Medications Alprazolam (Xanax) 0.5 mg PO DAILY [facility] PRN Reason: Protocol Last Admin: 07/19/17 10:25 Dose: 0.5 mg Alprazolam (Xanax) 1 mg PO HS [facility] PRN Reason: Protocol Last Admin: 07/18/17 23:20 Dose: 1 mg Furosemide (Lasix) 40 mg PO DAILY [facility] Last Admin: 07/19/17 10:26 Dose: 40 mg Glipizide (Glucotrol Xl) 10 mg PO DAILY [facility] Last Admin: 07/19/17 10:26 Dose: 10 mg Hydromorphone HCl (Dilaudid) 0.5 mg IVP Q4H PRN PRN Reason: Pain, Mild (1-3) Last Admin: 07/19/17 06:56 Dose: 0.5 mg Insulin Human Regular (Humulin R Low) 0 units SC ACHS [facility] PRN Reason: Protocol Last Admin: 07/19/17 07:54 Dose: 2 units Lisinopril (Zestril) 10 mg PO DAILY [facility] Last Admin: 07/19/17 10:26 Dose: 10 mg Metoprolol Tartrate (Lopressor) 25 mg PO DAILY [facility] Last Admin: 07/19/17 10:25 Dose: 25 mg Montelukast Sodium (Singulair) 10 mg PO DAILY [facility] Last Admin: 07/19/17 10:27 Dose: 10 mg Non-Formulary Medication (Levocetirizine Dihydrochloride [Xyzal]) 5 mg PO DAILY [facility] Last Admin: 07/19/17 10:29 Dose: Not Given Ondansetron HCl (Zofran Inj) 4 mg IVP Q6 PRN PRN Reason: Nausea/Vomiting Last Admin: 07/19/17 10:20 Dose: 4 mg Pantoprazole Sodium (Protonix Ec Tab) 40 mg PO DAILY [facility] Last Admin: 07/19/17 10:27 Dose: 40 mg Pregabalin (Lyrica) 75 mg PO DAILY [facility] Last Admin: 07/19/17 10:29 Dose: 75 mg Spironolactone (Aldactone) 25 mg PO DAILY [facility] Last Admin: 07/19/17 10:25 Dose: 25 mg Physical Exam - Constitutional Appears: No Acute Distress - Head Exam Head Exam: NORMOCEPHALIC - Eye Exam Eye Exam: Normal appearance. absent: Scleral icterus - ENT Exam ENT Exam: Mucous Membranes Moist - Neck Exam Neck exam: Positive for: Normal Inspection - Respiratory Exam Respiratory Exam: NORMAL BREATHING PATTERN. absent: Decreased Breath Sounds, Rales, Wheezes, Respiratory Distress - Cardiovascular Exam Cardiovascular Exam: +S1, +S2 - GI/Abdominal Exam GI & Abdominal Exam: Normal Bowel Sounds, Soft, Tenderness (diffuse midabdominal pain). absent: Guarding, Rebound - Rectal Exam Rectal Exam: Hemorrhoids. absent: Bloody Stool Additional comments: no mass palpated - Extremities Exam Extremities exam: Positive for: pedal pulses present. Negative for: calf tenderness, pedal edema - Neurological Exam Neurological exam: Alert, CN II-XII Intact - Skin Skin Exam: Dry, Warm Results - Vital Signs Recent Vital Signs: Last Vital Signs Temp 97 F L 07/19/17 06:00 Pulse 103 H 07/19/17 10:26 Resp 20 07/19/17 06:00 BP 125/92 H 07/19/17 10:26 Pulse Ox 94 L 07/19/17 06:00 - Labs Result Diagrams: 07/18/17 17:05 07/18/17 17:05 Labs: Laboratory Results - last 24 hr 07/18/17 07/18/17 07/18/17 19:30 21:12 21:35 pO2 191 H VBG pH 7.47 H VBG pCO2 42.0 VBG HCO3 30.6 H VBG Total CO2 31.9 H VBG O2 Sat (Calc) 98.3 H VBG Base Excess 6.3 H VBG Potassium 3.0 L Sodium 135.0 Chloride 101.0 Glucose 218 H Lactate 1.2 FiO2 21.0 POC Glucose (mg/dL) 207 H Venous Blood Potassium 3.0 L Urine Color Light brown Urine Appearance Slight-cloudy Urine pH 7.0 Ur Specific [place] 1.015 Urine Protein 100 H Urine Glucose (UA) Negative Urine Ketones Trace H Urine Blood Negative Urine Nitrate Negative Urine Bilirubin Moderate H Urine Urobilinogen 2.0 H Ur Leukocyte Esterase Negative Urine RBC 0 - 2 Urine WBC 0 - 2 Ur Epithelial Cells 4 - 5 Amorphous Sediment Trace Urine Bacteria Many Coarse Granular Casts Trace H Urine Other Fiber 07/19/17 07/19/17 07:16 11:13 pO2 VBG pH VBG pCO2 VBG HCO3 VBG Total CO2 VBG O2 Sat (Calc) VBG Base Excess VBG Potassium Sodium Chloride Glucose Lactate FiO2 POC Glucose (mg/dL) 205 H 174 H Venous Blood Potassium Urine Color Urine Appearance Urine pH Ur Specific [place] Urine Protein Urine Glucose (UA) Urine Ketones Urine Blood Urine Nitrate Urine Bilirubin Urine Urobilinogen Ur Leukocyte Esterase Urine RBC Urine WBC Ur Epithelial Cells Amorphous Sediment Urine Bacteria Coarse Granular Casts Urine Other Assessment & Plan - Assessment and Plan (Free Text) Assessment: Assessment: Abdominal pain Pancreatic cancer with metastasis ? Enterocolitis, small bowel and descending and sigmoid wall thickening History of diabetes mellitus History of biliary stents Pancytopenia Hepatitis C Elevated LFT COPD Fibromyalgia Plan: Start clear liquid diet Request for C. difficile Continue PPI DVT prophylaxis Zofran when necessary On the Dilaudid for pain Thank you for this consult and for allowing to participate in the patient's care , we'll make further recommendations based upon clinical course. Seen and discussed with Dr. Merchant. <Thang Merchant V - Last Filed: 07/19/17 22:15> Meds - Medications Medications: Current Medications Acetaminophen (Tylenol 325mg Tab) 650 mg PO TID PRN PRN Reason: Pain, Mild (1-3) Alprazolam (Xanax) 0.5 mg PO DAILY [facility] PRN Reason: Protocol Last Admin: 07/19/17 10:25 Dose: 0.5 mg Alprazolam (Xanax) 1 mg PO HS [facility] PRN Reason: Protocol Last Admin: 07/18/17 23:20 Dose: 1 mg Furosemide (Lasix) 40 mg PO DAILY [facility] Last Admin: 07/19/17 10:26 Dose: 40 mg Glipizide (Glucotrol Xl) 10 mg PO DAILY [facility] Last Admin: 07/19/17 10:26 Dose: 10 mg Hydromorphone HCl (Dilaudid) 0.5 mg IVP Q4H PRN PRN Reason: Pain, Mild (1-3) Last Admin: 07/19/17 18:18 Dose: 0.5 mg Insulin Human Regular (Humulin R Low) 0 units SC [facility] PRN Reason: Protocol Last Admin: 07/19/17 17:04 Dose: Not Given Lisinopril (Zestril) 10 mg PO DAILY [facility] Last Admin: 07/19/17 10:26 Dose: 10 mg Metoprolol Tartrate (Lopressor) 25 mg PO DAILY [facility] Last Admin: 07/19/17 10:25 Dose: 25 mg Montelukast Sodium (Singulair) 10 mg PO DAILY [facility] Last Admin: 07/19/17 10:27 Dose: 10 mg Non-Formulary Medication (Levocetirizine Dihydrochloride [Xyzal]) 5 mg PO DAILY [facility] Last Admin: 07/19/17 10:29 Dose: Not Given Ondansetron HCl (Zofran Inj) 4 mg IVP Q4H PRN PRN Reason: Nausea/Vomiting Oxycodone HCl (Oxycontin Extended Release Tab) 10 mg PO BID [facility] Stop: 07/22/17 18:01 Last Admin: 07/19/17 17:04 Dose: 10 mg Pantoprazole Sodium (Protonix Ec Tab) 40 mg PO DAILY [facility] Last Admin: 07/19/17 10:27 Dose: 40 mg Pregabalin (Lyrica) 75 mg PO DAILY [facility] Last Admin: 07/19/17 10:29 Dose: 75 mg Spironolactone (Aldactone) 25 mg PO DAILY [facility] Last Admin: 07/19/17 10:25 Dose: 25 mg Results - Vital Signs Recent Vital Signs: Last Vital Signs Temp 98.1 F 07/19/17 18:00 Pulse 96 H 07/19/17 18:49 Resp 20 07/19/17 18:00 BP 108/75 07/19/17 18:00 Pulse Ox 94 L 07/19/17 06:00 - Labs Result Diagrams: 07/18/17 17:05 07/18/17 17:05 Labs: Laboratory Results - last 24 hr 07/18/17 07/19/17 07/19/17 21:35 07:16 11:13 pO2 191 H VBG pH 7.47 H VBG pCO2 42.0 VBG HCO3 30.6 H VBG Total CO2 31.9 H VBG O2 Sat (Calc) 98.3 H VBG Base Excess 6.3 H VBG Potassium 3.0 L Sodium 135.0 Chloride 101.0 Glucose 218 H Lactate 1.2 FiO2 21.0 POC Glucose (mg/dL) 205 H 174 H Venous Blood Potassium 3.0 L 07/19/17 07/19/17 15:48 21:36 pO2 VBG pH VBG pCO2 VBG HCO3 VBG Total CO2 VBG O2 Sat (Calc) VBG Base Excess VBG Potassium Sodium Chloride Glucose Lactate FiO2 POC Glucose (mg/dL) 150 H 120 H Venous Blood Potassium Attending/Attestation - Attestation I have personally seen and examined this patient.: Yes I have fully participated in the care of the patient.: Yes I have reviewed all pertinent clinical information: Yes Notes (Text): The patient With a metastatic pancreatic cancer was seen and evaluated the earlier. This is Addendum to the GI consultation report dictated by Amelia Wright NP. on examination patient did have tenderness in the epigastric and left lower quadrant area and suprapubic area no rebound or guarding. CT scan was reviewed. Would request a stool for C. difficile Clear liquid diet and Thank you Very much for Allowing us to participate care of the patient 07/19/17 22:13
[2017-07-19] MEDS: oxyCODONE 10 mg ER Tab (oxyCONTIN) PO SCH (17:04)
--- NOTE | 2017-07-19 17:20 | CARD ---
APPROVED REPORT EKG Measurement Heart [id number] <Conclusion> Sinus tachycardia Nonspecific ST and T wave abnormality Abnormal ECG
[2017-07-19] MEDS ORDERED: Potassium Chloride 20 mEq ER Tab PO ONE (23:16)
[2017-07-20] MEDS: HYDROmorphone 0.5 mg/0.5 ml ISec IVP PRN ×3 (03:30→21:31)
--- NOTE | 2017-07-20 05:00 | CON ---
PULMONARY CONSULTATION DATE: 07/19/2017 REASON FOR CONSULTATION: Chronic obstructive lung disease, sleep apnea syndrome, metastatic cancer. HISTORY OF PRESENT ILLNESS: This is a 66-year old female known to me from previous admissions, has a metastatic adenocarcinoma involving liver, pancreas, and gallbladder ducts, also metastatic disease to the lungs, history of chronic obstructive lung disease, diabetes, hypertension comes in with abdominal pain and diarrhea. No hemoptysis or hematemesis. No hematuria. PAST MEDICAL HISTORY: Metastatic adenocarcinoma, requiring biliary stent, mets to the liver and lungs, chronic obstructive lung disease, obstructive sleep apnea syndrome, hypertension, history of hepatitis C, degenerative joint disease, history of GERD, anxiety disorder and depression. FAMILY HISTORY: No significant cardiopulmonary disease reported. SOCIAL HISTORY: Still actively on and off smokes. Denies any alcohol use. ALLERGIES: NONE KNOWN. MEDICATIONS: She is on Aldactone 25 mg daily, Dilaudid 7.5 mg IV q. 4 hours p.r.n., glipizide 10 mg daily, insulin coverage, Lasix 40 mg daily, Xyzal 5 mg daily, metoprolol tartrate 25 mg daily, Lyrica 75 mg daily, oxycodone extended release 10 mg twice a day, Protonix 40 mg daily, Singulair 10 mg daily, Tylenol p.r.n. basis, Xanax 1 mg at bedtime, Xanax 0.5 mg daily, Zestril 10 mg daily and Zofran p.r.n. basis. REVIEW OF SYSTEMS: No headache. No rhinitis. Gets short of breath with exertion. No chest pain. Has abdominal pain and diarrhea. No leg pain or leg swelling. No dysuria. PHYSICAL EXAMINATION: GENERAL: Sitting side of the bed having dinner. VITAL SIGNS: Temp 98, heart rate 99, respiratory rate 20, blood pressure 108/75 and pulse ox is 94% on room air. HEENT: Moist mucous membrane. Crowded airway. Mallampati score is 4. NECK: Supple. No JVD. LUNGS: Has a fair airflow with few rhonchi. HEART: S1 and S2. ABDOMEN: Positive bowel sounds. Epigastric tenderness. EXTREMITIES: There is no edema. NEUROLOGIC: Awake, alert and follows simple commands. LABORATORY DATA: Shows hemoglobin 11.0, hematocrit 33.0, WBC 1.7 and platelets 133. INR 1.04. PTT 37. VBG show pH 7.47, pCO2 of 42, O2 of 191 on supplement oxygen. Sodium 135, potassium 3.0, chloride 96, bicarbonate 29, BUN 11, creatinine 0.5, glucose 215, calcium 8.5, magnesium 1.9, AST 273, ALT 288, alkaline phosphatase is 176. LDH 1077. Troponin less than 0.01. Albumin 3.2. Microbiology, blood cultures have been negative. Has a CT of the abdomen and pelvis done on admission. ASSESSMENT: Metastatic adenocarcinoma involving the head of the pancreas, liver, lungs, obstructing the ducts requiring stent, diabetes, hypertension, chronic obstructive lung disease, sleep apnea syndrome and colitis. PLAN: CT of the abdomen reviewed. Continue bronchodilator. IV fluids. We will send stools for C. diff. Add Flagyl for now. Oncology/GI followup. Follow up labs in the morning. Replete potassium. Thank you and we will follow with you. Linnea Stephen MD
[2017-07-20 06:13] LABS: HEMATOCRIT 30.7 % (36.0-48.0); MEAN CELL VOLUME 79.7 fl (80.0-105.0); MEAN CORPUSCULAR HEMOGLOBIN 26.5 pg (25.0-35.0); MEAN CORPUSCULAR HGB CONC 33.2 g/dl (31.0-37.0); MEAN PLATELET VOLUME 9.6 fl (7.0-11.0); RED CELL DISTRIBUTION WIDTH 15.9 % (11.5-14.5)
[2017-07-20 06:17] LABS: ALKALINE PHOSPHATASE 157 U/L (38-126); ALT/SGPT 163 U/L (7-56); AST/SGOT 80 U/L (14-36); BILIRUBIN,TOTAL 1.1 mg/dL (0.2-1.3); BLOOD UREA NITROGEN 11 mg/dL (7-21); CALCIUM 8.2 mg/dL (8.4-10.5); CARBON DIOXIDE 32 mmol/L (21-33); CHLORIDE 99 mmol/L (98-107); GFR AFRICAN-AMERICAN > 60; GLUCOSE,RANDOM 125 mg/dL (70-110); POTASSIUM 3.2 mmol/L (3.6-5.0); SODIUM 135 mmol/L (132-148); TOTAL PROTEIN 5.9 g/dL (5.8-8.3)
[2017-07-20 06:30] LABS: WHITE BLOOD COUNT 2.8 10^3/ul (4.5-11.0)
--- NOTE | 2017-07-20 07:24 | HP ---
CHIEF COMPLAINT: Abdominal pain, intractable nausea, vomiting, HISTORY OF PRESENT ILLNESS: The patient is a 66-year-old female with past medical history of pancreatic cancer, diverticulitis with liver lesion, hematuria, came to the emergency department for diffuse abdominal pain, which was worse over the past few days. The patient states that she is unable to hold anything down for the past few days. She also admits to having mild shortness of breath due to vomiting and lower extremity swelling. She denies any chest pain. She had palpitation. No fever. No hematuria. No hematochezia. The patient receives chemotherapy with no radiation therapy. PAST MEDICAL HISTORY: Hypertension, emphysema, TIA, history of cancer, chemotherapy, hepatitis C, fall, colon surgery, appendectomy, colon resection, liver biopsy, hematuria, anxiety, depression. FAMILY HISTORY: Father and mother, noncontributory. HABITS: No alcohol and no substance abuse now. History of substance abuse. No drinking now, but history of drinking. ALLERGIES: THE PATIENT HAS NO KNOWN ALLERGIES. HOME MEDICATIONS: Xanax, Lasix, glipizide, Zestril, Lopressor, Singulair, Aldactone, morphine, Zofran, oxycodone, Lyrica. REVIEW OF SYSTEMS: The patient was examined in the telemetry right now, as per the patient, the pain is a little bit better, but still has pain. Nausea and vomiting is a little bit better. No headache, no dizziness, no focal weakness. No polydipsia, no polyuria. PHYSICAL EXAMINATION VITAL SIGNS: Temperature 98.1, pulse 96, respiratory rate 20, blood pressure 108/75. HEENT: Head is normocephalic and atraumatic. Eyes, PERRLA. Extraocular muscles intact. Conjunctivae clear. Nose patent. Mucous membrane moist. NECK: Supple. No carotid bruits. No JVD or thyromegaly. CHEST: Bilaterally symmetrical. HEART: S1, S2 positive. LUNGS: Clear to auscultation. ABDOMEN: Soft. Bowel sounds present. No organomegaly. EXTREMITIES: No edema. No cyanosis. NEUROLOGIC: The patient is awake, alert. Moving all 4 extremities. No focal deficits. LABORATORY DATA: White blood cells is 1.7, hemoglobin 11.0, hematocrit 33.0, platelets 133. Glucose 150, 174, 205, 207, 319. ASSESSMENT AND PLAN: The patient is a 66-year-old female with leukopenia, anemia, hyperglycemia, proteinuria, ketonuria, UTI. CAT scan of the abdomen and pelvis done, seen by GI, Dr. Merchant. The patient has acute hepatitis C, liver mass, lung nodules, pancreatic cancer, fibromyalgia, diabetes mellitus x2, GERD, COPD, TIA, dyspepsia, and enterocolitis, small bowel, descending and sigmoid wall thickening. History of biliary stents, pancytopenia, COPD. Started on clear liquid diet. Stool sent for C. difficile. Continue PPI, DVT prophylaxis, Zofran, pain medications. Only Dilaudid is not working. I added OxyContin 10 mg p.o. b.i.d. GI and DVT prophylaxis. We will follow. Georgina Ferrara MD MTDD
[2017-07-20] MEDS: Insulin Reg-LOW-Coverage SC SCH ×3 (08:12→16:16)
[2017-07-20] MEDS: oxyCODONE 10 mg ER Tab (oxyCONTIN) PO SCH ×2 (12:04→17:28)
[2017-07-20] MEDS: GlipiZIDE 10 mg SR Tab PO SCH (12:04)
[2017-07-20] MEDS: Pantoprazole 40 mg EC Tab PO SCH (12:05)
[2017-07-20] MEDS ORDERED: Potassium Chloride 40 mEq/30 ml LIQ UD PO ONE (15:58)
--- NOTE | 2017-07-20 16:07 | CP.PCM.PN ---
<Amelia Wright - Last Filed: 07/20/17 16:01> Subjective - Date & Time of Evaluation Date of Evaluation: 07/20/17 Time of Evaluation: 08:45 - Subjective Subjective: seen and examined at the bedside earlier today, the chart was reviewed. Patient continued to have diarrhea no reports of bleeding. Patient still has abdominal pain, nausea slightly better. No fevers, chills. Stool for C. difficile pending patient was started on by mouth Flagyl. Objective - Vital Signs/Intake and Output Vital Signs (last 24 hours): Temp Pulse Resp BP Pulse Ox 97.9 F 105 H 20 99/55 L 94 L 07/20/17 05:45 07/20/17 05:45 07/20/17 05:45 07/20/17 12:09 07/20/17 05:45 Intake and Output: 07/20/17 07/20/17 06:59 18:59 Intake Total 120 Balance 120 - Medications Medications: Current Medications Acetaminophen (Tylenol 325mg Tab) 650 mg PO TID PRN PRN Reason: Pain, Mild (1-3) Alprazolam (Xanax) 0.5 mg PO DAILY [facility] PRN Reason: Protocol Last Admin: 07/20/17 12:05 Dose: 0.5 mg Alprazolam (Xanax) 1 mg PO HS [facility] PRN Reason: Protocol Last Admin: 07/19/17 22:22 Dose: 1 mg Furosemide (Lasix) 40 mg PO DAILY [facility] Last Admin: 07/20/17 12:09 Dose: 40 mg Glipizide (Glucotrol Xl) 10 mg PO DAILY [facility] Last Admin: 07/20/17 12:04 Dose: 10 mg Hydromorphone HCl (Dilaudid) 0.5 mg IVP Q4H PRN PRN Reason: Pain, Mild (1-3) Last Admin: 07/20/17 12:06 Dose: 0.5 mg Insulin Human Regular (Humulin R Low) 0 units SC ACHS [facility] PRN Reason: Protocol Last Admin: 07/20/17 12:17 Dose: Not Given Lisinopril (Zestril) 10 mg PO DAILY [facility] Last Admin: 07/19/17 10:26 Dose: 10 mg Metoprolol Tartrate (Lopressor) 25 mg PO DAILY [facility] Last Admin: 07/19/17 10:25 Dose: 25 mg Metronidazole (Flagyl) 500 mg PO Q8 [facility] PRN Reason: Protocol Last Admin: 07/20/17 05:01 Dose: 500 mg Montelukast Sodium (Singulair) 10 mg PO DAILY [facility] Last Admin: 07/20/17 12:05 Dose: 10 mg Non-Formulary Medication (Levocetirizine Dihydrochloride [Xyzal]) 5 mg PO DAILY [facility] Last Admin: 07/20/17 12:07 Dose: Not Given Ondansetron HCl (Zofran Inj) 4 mg IVP Q4H PRN PRN Reason: Nausea/Vomiting Oxycodone HCl (Oxycontin Extended Release Tab) 10 mg PO BID [facility] Stop: 07/22/17 18:01 Last Admin: 07/20/17 12:04 Dose: 10 mg Pantoprazole Sodium (Protonix Ec Tab) 40 mg PO DAILY [facility] Last Admin: 07/20/17 12:05 Dose: 40 mg Pregabalin (Lyrica) 75 mg PO DAILY [facility] Last Admin: 07/20/17 12:04 Dose: 75 mg Spironolactone (Aldactone) 25 mg PO DAILY [facility] Last Admin: 07/20/17 12:05 Dose: 25 mg - Labs Labs: 07/20/17 05:40 07/20/17 05:40 PT 11.2 Seconds (9.9-11.8) 07/18/17 17:05 INR 1.04 (0.93-1.08) 07/18/17 17:05 APTT 37.3 Seconds (23.7-30.8) H 07/18/17 17:05 - Constitutional Appears: No Acute Distress - Head Exam Head Exam: NORMOCEPHALIC - Eye Exam Eye Exam: Normal appearance. absent: Scleral icterus - ENT Exam ENT Exam: Mucous Membranes Moist (NO BULIMIA) - Neck Exam Neck Exam: Normal Inspection - Respiratory Exam Respiratory Exam: NORMAL BREATHING PATTERN. absent: Respiratory Distress - Cardiovascular Exam Cardiovascular Exam: +S1, +S2 - GI/Abdominal Exam GI & Abdominal Exam: Soft, Tenderness, Normal Bowel Sounds. absent: Guarding, Rebound - Extremities Exam Extremities Exam: Normal Capillary Refill. absent: Calf Tenderness, Pedal Edema - Neurological Exam Neurological Exam: Alert, Awake, Oriented x3 - Skin Skin Exam: Dry, Warm Assessment and Plan - Assessment and Plan (Free Text) Assessment: Assessment: Abdominal pain Pancreatic cancer with metastasis Diarrhea, stool for C. difficile negative Colitis, small bowel and descending and sigmoid wall thickening Hypokalemia History of diabetes mellitus History of biliary stents Pancytopenia Hepatitis C Elevated LFT COPD Fibromyalgia Plan: continue clear liquid diet Continue PPI on oral Flagyl DVT prophylaxis Zofran when necessary On the Dilaudid for pain Monitor electrolytes, give dose of potassium 40 M excuse now, see orders Seen and discussed with Dr. Merchant. <Thang Merchant V - Last Filed: 07/20/17 22:08> Objective - Vital Signs/Intake and Output Vital Signs (last 24 hours): Temp Pulse Resp BP Pulse Ox 97.9 F 109 H 20 129/87 94 L 07/20/17 18:00 07/20/17 18:00 07/20/17 18:00 07/20/17 18:00 07/20/17 05:45 Intake and Output: 07/20/17 07/21/17 18:59 06:59 Intake Total 0 Balance 0 - Medications Medications: Current Medications Acetaminophen (Tylenol 325mg Tab) 650 mg PO TID PRN PRN Reason: Pain, Mild (1-3) Alprazolam (Xanax) 0.5 mg PO DAILY [facility] PRN Reason: Protocol Last Admin: 07/20/17 12:05 Dose: 0.5 mg Alprazolam (Xanax) 1 mg PO HS [facility] PRN Reason: Protocol Last Admin: 07/20/17 21:31 Dose: 1 mg Furosemide (Lasix) 40 mg PO DAILY [facility] Last Admin: 07/20/17 12:09 Dose: 40 mg Glipizide (Glucotrol Xl) 10 mg PO DAILY [facility] Last Admin: 07/20/17 12:04 Dose: 10 mg Hydromorphone HCl (Dilaudid) 0.5 mg IVP Q4H PRN PRN Reason: Pain, Mild (1-3) Last Admin: 07/20/17 21:31 Dose: 0.5 mg Insulin Human Regular (Humulin R Low) 0 units SC ACHS [facility] PRN Reason: Protocol Last Admin: 07/20/17 16:16 Dose: Not Given Lisinopril (Zestril) 10 mg PO DAILY [facility] Last Admin: 07/20/17 17:27 Dose: 10 mg Metoprolol Tartrate (Lopressor) 25 mg PO DAILY [facility] Last Admin: 07/20/17 17:27 Dose: 25 mg Montelukast Sodium (Singulair) 10 mg PO DAILY [facility] Last Admin: 07/20/17 12:05 Dose: 10 mg Non-Formulary Medication (Levocetirizine Dihydrochloride [Xyzal]) 5 mg PO DAILY [facility] Last Admin: 07/20/17 12:07 Dose: Not Given Ondansetron HCl (Zofran Inj) 4 mg IVP Q4H PRN PRN Reason: Nausea/Vomiting Oxycodone HCl (Oxycontin Extended Release Tab) 10 mg PO BID [facility] Stop: 07/22/17 18:01 Last Admin: 07/20/17 17:28 Dose: 10 mg Pantoprazole Sodium (Protonix Ec Tab) 40 mg PO DAILY [facility] Last Admin: 07/20/17 12:05 Dose: 40 mg Pregabalin (Lyrica) 75 mg PO DAILY [facility] Last Admin: 07/20/17 12:04 Dose: 75 mg Spironolactone (Aldactone) 25 mg PO DAILY [facility] Last Admin: 07/20/17 12:05 Dose: 25 mg - Labs Labs: 07/20/17 05:40 07/20/17 05:40 PT 11.2 Seconds (9.9-11.8) 07/18/17 17:05 INR 1.04 (0.93-1.08) 07/18/17 17:05 APTT 37.3 Seconds (23.7-30.8) H 07/18/17 17:05 Attending/Attestation - Attestation I have personally seen and examined this patient.: Yes I have fully participated in the care of the patient.: Yes I have reviewed all pertinent clinical information, including history, physical exam and plan: Yes Notes (Text): this patient was seen and evaluated earlier. This is in addition to GI progress report dictated by Amelia Wright APN patient had multiple episodes of loose bowel movements. By mouth intake and remains low stool for C. difficile negative History of lactose intolerance. Would consider starting the patient only on ensure clear supplement with a close monitoring of blood glucose continue IV fluid with close monitoring of electrolytes
--- NOTE | 2017-07-20 23:41 | PN ---
PULMONARY PROGRESS NOTE DATE: 07/20/2017 REFERRING PHYSICIAN: Georgina Ferrara MD SUBJECTIVE: She is lying in the bed, feels a little better, tolerated diet well. Diarrhea has improved. Abdominal pain has improved. No cough. No sputum production. No leg pain or leg swelling. OBJECTIVE: GENERAL: In no acute distress. VITAL SIGNS: Temperature is 98, heart rate is 109, respiratory rate is 20, blood pressure is 129/87, and pulse oximetry 94% on room air. HEENT: Moist mucous membranes. Crowded airway. NECK: Supple. No JVD. LUNGS: Has a fair airflow with few rhonchi. HEART: S1 and S2. ABDOMEN: Positive bowel sounds. Mild epigastric pain. EXTREMITIES: There is no edema. NEUROLOGIC: Awake, alert, and follows simple commands. MEDICATIONS: She is on Aldactone 25 mg daily, Dilaudid 0.5 mg q. 4 hours p.r.n., Flagyl 500 mg q. 8 hours, glipizide XL 10 mg daily, insulin coverage, Lasix 40 mg daily, Xyzal 5 mg daily, metoprolol tartrate 25 mg daily, Lyrica 75 mg daily, oxycodone extended release 10 mg twice a day, Protonix 40 mg daily, Singulair 10 mg daily, Tylenol p.r.n. basis, Xanax 1 mg at bedtime, Xanax 0.5 mg daily, Zestril 10 mg daily, and Zofran p.r.n. basis. LABORATORY DATA: Hemoglobin 10.2, hematocrit 30.7, WBC 2.8, and platelet count is 85. INR 1.04. Sodium 135, potassium 3.2, chloride 99, bicarbonate 32, BUN 11, creatinine 0.5, glucose 125, calcium 8.2, AST 80, ALT 163, alkaline phosphatase is 157, and albumin 2.9. Microbiology, blood culture negative. Stool for C. diff is negative. IMPRESSION AND PLAN: Metastatic adenocarcinoma involving the head of the pancreas, liver, lungs, and common bile duct requiring stenting, diabetes, hypertension, chronic obstructive lung disease, obstructive sleep apnea syndrome, and colitis. Clostridium difficile is negative. We will discontinue Flagyl. Continue with bronchodilator, keep head 45 degrees, pain management, gastric prophylaxis, deep venous thrombosis prophylaxis. Follow up labs in the morning. Thank you and we will follow with you. Linnea Stephen MD
--- NOTE | 2017-07-21 00:07 | PN ---
DATE: SUBJECTIVE: The patient is 66 years old female. The patient was seen and examined on the bedside, looking comfortable. Abdominal pain is getting better, still has diarrhea. No fever. No chills. Nausea slightly better. No headache. No dizziness. No hematuria. No hematochezia. PHYSICAL EXAMINATION: VITAL SIGNS: Temperature 97.9, pulse 105, respiratory rate 20, blood pressure 99/55 and pulse oximetry 94. HEENT: Head is normocephalic and atraumatic. Eyes; PERRLA. Extraocular muscles intact. Conjunctivae clear. Nose is patent. Mucus membranes moist. NECK: Supple. No carotid bruits, JVD or thyromegaly. CHEST: Bilaterally symmetrical. HEART: S1 and S2 positive. LUNGS: Clear to auscultation. ABDOMEN: Soft. Bowel sounds positive. No organomegaly. EXTREMITIES: No edema. No cyanosis. NEUROLOGIC: The patient is awake and alert. Moving all 4 extremities. No focal deficit. MEDICATIONS: Xanax, Lasix, Glucotrol, Dilaudid, insulin, Zestril, Lopressor, Flagyl, Singulair, Zofran, OxyContin/oxycodone. LABORATORY DATA: White blood cells 2.8, hemoglobin 10.2, hematocrit 30.7, platelets 85. Sodium 135, potassium 3.2, BUN 11, creatinine 0.5, glucose 125. ASSESSMENT AND PLAN: Ms. Hortensia Love is 66 years old female with leukopenia, anemia thrombocytopenia, hypokalemia, hyperglycemia, has diarrhea, abdominal pain, pancreatic cancer with metastasis, colitis, small bowel, descending and sigmoid wall thickening, hypokalemia, history of diabetes mellitus, history of biliary stents, pancytopenia, elevated liver function test, chronic obstructive pulmonary disease and fibromyalgia. Continue clear liquid diet. Continue proton pump inhibitor, oral Flagyl, deep venous thrombosis prophylaxis. Continue Zofran. MS Contin for pain. Discussion done with nursing staff, seen by the maintenance manager and coal cager. Gastrointestinal and deep venous thrombosis prophylaxis. Repeat labs. We will follow. Georgina Ferrara MD [facility]
[2017-07-21] MEDS: Insulin Reg-LOW-Coverage SC SCH ×5 (02:49→22:11)
[2017-07-21] MEDS: HYDROmorphone 0.5 mg/0.5 ml ISec IVP PRN ×3 (03:26→22:00)
[2017-07-21 07:15] LABS: ALB/GLOB RATIO 0.9 (1.1-1.8); ALKALINE PHOSPHATASE 175 U/L (38-126); ALT/SGPT 156 U/L (7-56); AST/SGOT 164 U/L (14-36); BLOOD UREA NITROGEN 10 mg/dL (7-21); CALCIUM 8.3 mg/dL (8.4-10.5); CARBON DIOXIDE 27 mmol/L (21-33); CHLORIDE 101 mmol/L (98-107); GFR AFRICAN-AMERICAN > 60; GLUCOSE,RANDOM 85 mg/dL (70-110); POTASSIUM 3.1 mmol/L (3.6-5.0); SODIUM 138 mmol/L (132-148); TOTAL PROTEIN 5.9 g/dL (5.8-8.3)
[2017-07-21] MEDS: Pantoprazole 40 mg EC Tab PO SCH (09:32)
[2017-07-21] MEDS: oxyCODONE 10 mg ER Tab (oxyCONTIN) PO SCH ×2 (09:40→17:37)
[2017-07-21] MEDS: GlipiZIDE 10 mg SR Tab PO SCH (10:43)
--- NOTE | 2017-07-21 13:15 | CP.PCM.PN ---
<Amelia Wright - Last Filed: 07/21/17 13:15> Subjective - Date & Time of Evaluation Date of Evaluation: 07/21/17 Time of Evaluation: 09:40 - Subjective Subjective: Seen and examined at the bedside. This morning, the chart was reviewed. Patient does report decreased nausea, no vomiting as well as decreased abdominal pain. She had about 5-6 episodes of diarrhea, no reports of GI bleed , fever or chills. Denies shortness of breath or chest pain. Objective - Vital Signs/Intake and Output Vital Signs (last 24 hours): Temp Pulse Resp BP Pulse Ox 98.4 F 98 H 20 114/79 92 L 07/21/17 12:00 07/21/17 12:00 07/21/17 12:00 07/21/17 12:00 07/21/17 06:00 Intake and Output: 07/21/17 07/21/17 06:59 18:59 Intake Total 580 Balance 580 - Medications Medications: Current Medications Acetaminophen (Tylenol 325mg Tab) 650 mg PO TID PRN PRN Reason: Pain, Mild (1-3) Alprazolam (Xanax) 0.5 mg PO DAILY [facility] PRN Reason: Protocol Last Admin: 07/21/17 09:32 Dose: 0.5 mg Alprazolam (Xanax) 1 mg PO HS [facility] PRN Reason: Protocol Last Admin: 07/20/17 21:31 Dose: 1 mg Furosemide (Lasix) 40 mg PO DAILY [facility] Last Admin: 07/21/17 09:33 Dose: 40 mg Glipizide (Glucotrol Xl) 10 mg PO DAILY [facility] Last Admin: 07/21/17 10:43 Dose: Not Given Hydromorphone HCl (Dilaudid) 0.5 mg IVP Q4H PRN PRN Reason: Pain, Mild (1-3) Last Admin: 07/21/17 10:35 Dose: 0.5 mg Insulin Human Regular (Humulin R Low) 0 units SC ACHS [facility] PRN Reason: Protocol Last Admin: 07/21/17 12:18 Dose: Not Given Lisinopril (Zestril) 10 mg PO DAILY [facility] Last Admin: 07/21/17 09:34 Dose: 10 mg Metoprolol Tartrate (Lopressor) 25 mg PO DAILY [facility] Last Admin: 07/21/17 09:34 Dose: 25 mg Metronidazole (Flagyl) 500 mg PO Q8 [facility] PRN Reason: Protocol Montelukast Sodium (Singulair) 10 mg PO DAILY [facility] Last Admin: 07/21/17 09:32 Dose: 10 mg Non-Formulary Medication (Levocetirizine Dihydrochloride [Xyzal]) 5 mg PO DAILY [facility] Last Admin: 07/21/17 10:43 Dose: Not Given Ondansetron HCl (Zofran Inj) 4 mg IVP Q4H PRN PRN Reason: Nausea/Vomiting Oxycodone HCl (Oxycontin Extended Release Tab) 10 mg PO BID [facility] Stop: 07/22/17 18:01 Last Admin: 07/21/17 09:40 Dose: 10 mg Pantoprazole Sodium (Protonix Ec Tab) 40 mg PO DAILY [facility] Last Admin: 07/21/17 09:32 Dose: 40 mg Pregabalin (Lyrica) 75 mg PO DAILY [facility] Last Admin: 07/21/17 09:40 Dose: 75 mg Spironolactone (Aldactone) 25 mg PO DAILY [facility] Last Admin: 07/21/17 09:34 Dose: 25 mg - Labs Labs: 07/20/17 05:40 07/21/17 05:50 PT 11.2 Seconds (9.9-11.8) 07/18/17 17:05 INR 1.04 (0.93-1.08) 07/18/17 17:05 APTT 37.3 Seconds (23.7-30.8) H 07/18/17 17:05 - Constitutional Appears: No Acute Distress - Head Exam Head Exam: NORMOCEPHALIC - Eye Exam Eye Exam: Normal appearance. absent: Scleral icterus - ENT Exam ENT Exam: Mucous Membranes Moist - Neck Exam Neck Exam: Normal Inspection - Respiratory Exam Respiratory Exam: NORMAL BREATHING PATTERN. absent: Respiratory Distress - Cardiovascular Exam Cardiovascular Exam: +S1, +S2 - GI/Abdominal Exam GI & Abdominal Exam: Soft, Tenderness, Normal Bowel Sounds. absent: Distended, Guarding, Rebound - Extremities Exam Extremities Exam: Normal Capillary Refill. absent: Calf Tenderness, Pedal Edema - Neurological Exam Neurological Exam: Alert, Awake, Oriented x3 - Skin Skin Exam: Dry, Warm Assessment and Plan - Assessment and Plan (Free Text) Assessment: Assessment: Abdominal pain Pancreatic cancer with metastasis Diarrhea, stool for C. difficile negative Colitis, small bowel and descending and sigmoid wall thickening Hypokalemia History of diabetes mellitus History of biliary stents Pancytopenia Hepatitis C Elevated LFT COPD Fibromyalgia Plan: continue clear liquid diet, add ensure clear, advance diet as tolerated Continue PPI Will continue oral Flagyl, see orders DVT prophylaxis Zofran when necessary On the Dilaudid for pain Monitor electrolytes,replace potassium as necessary Seen and discussed with Dr. Merchant. <Thang Merchant V - Last Filed: 07/21/17 23:17> Objective - Vital Signs/Intake and Output Vital Signs (last 24 hours): Temp Pulse Resp BP Pulse Ox 98.3 F 108 H 20 111/78 92 L 07/21/17 18:00 07/21/17 18:00 07/21/17 18:00 07/21/17 18:00 07/21/17 06:00 - Medications Medications: Current Medications Acetaminophen (Tylenol 325mg Tab) 650 mg PO TID PRN PRN Reason: Pain, Mild (1-3) Alprazolam (Xanax) 0.5 mg PO DAILY [facility] PRN Reason: Protocol Last Admin: 07/21/17 09:32 Dose: 0.5 mg Alprazolam (Xanax) 1 mg PO HS [facility] PRN Reason: Protocol Last Admin: 07/21/17 23:10 Dose: Not Given Furosemide (Lasix) 40 mg PO DAILY [facility] Last Admin: 07/21/17 09:33 Dose: 40 mg Glipizide (Glucotrol Xl) 10 mg PO DAILY [facility] Last Admin: 07/21/17 10:43 Dose: Not Given Hydromorphone HCl (Dilaudid) 0.5 mg IVP Q4H PRN PRN Reason: Pain, Mild (1-3) Last Admin: 07/21/17 22:00 Dose: 0.5 mg Insulin Human Regular (Humulin R Low) 0 units SC [facility] PRN Reason: Protocol Last Admin: 07/21/17 22:11 Dose: Not Given Lisinopril (Zestril) 10 mg PO DAILY [facility] Last Admin: 07/21/17 09:34 Dose: 10 mg Metoprolol Tartrate (Lopressor) 25 mg PO DAILY [facility] Last Admin: 07/21/17 09:34 Dose: 25 mg Metronidazole (Flagyl) 500 mg PO Q8 [facility] PRN Reason: Protocol Last Admin: 07/21/17 22:00 Dose: 500 mg Montelukast Sodium (Singulair) 10 mg PO DAILY [facility] Last Admin: 07/21/17 09:32 Dose: 10 mg Non-Formulary Medication (Levocetirizine Dihydrochloride [Xyzal]) 5 mg PO DAILY [facility] Last Admin: 07/21/17 10:43 Dose: Not Given Ondansetron HCl (Zofran Inj) 4 mg IVP Q4H PRN PRN Reason: Nausea/Vomiting Oxycodone HCl (Oxycontin Extended Release Tab) 10 mg PO BID [facility] Stop: 07/22/17 18:01 Last Admin: 07/21/17 17:37 Dose: 10 mg Pantoprazole Sodium (Protonix Ec Tab) 40 mg PO DAILY [facility] Last Admin: 07/21/17 09:32 Dose: 40 mg Pregabalin (Lyrica) 75 mg PO DAILY [facility] Last Admin: 07/21/17 09:40 Dose: 75 mg Spironolactone (Aldactone) 25 mg PO DAILY [facility] Last Admin: 07/21/17 09:34 Dose: 25 mg - Labs Labs: 07/20/17 05:40 07/21/17 05:50 PT 11.2 Seconds (9.9-11.8) 07/18/17 17:05 INR 1.04 (0.93-1.08) 07/18/17 17:05 APTT 37.3 Seconds (23.7-30.8) H 07/18/17 17:05 Attending/Attestation - Attestation I have personally seen and examined this patient.: Yes I have fully participated in the care of the patient.: Yes I have reviewed all pertinent clinical information, including history, physical exam and plan: Yes Notes (Text): 07/21/17 23:13 This patient was seen and evaluated here earlier. This is an addendum to the GE progress report dictated by Amelia Wright APN Tolerating diet.. Stool for C. difficile negative. Clinically more suggestive of antibiotic-induced diarrhea. Patient was neutropenic patient also was treated antibiotics in the past Will consider restart Flagyl On ensure clear supplement
[2017-07-21] MEDS ORDERED: Potassium Chloride 40 mEq/30 ml LIQ UD PO ONE (13:43)
--- NOTE | 2017-07-21 18:51 | PN ---
DATE: REFERRING PHYSICIAN: Dr. Georgina Ferrara MD SUBJECTIVE: She is lying in the bed and it seems better. No headache. No rhinitis. No nausea. No vomiting. Abdominal pain is better. Diarrhea is better. No leg pain or leg swelling. PHYSICAL EXAMINATION GENERAL: No acute distress. VITAL SIGNS: Temperature 98, heart rate 98, respiratory rate 20, blood pressure 114/79, pulse ox 92% on room air. HEENT: Moist mucous membrane. Crowded airway. NECK: Supple. No JVD. CARDIOPULMONARY: S1 and S2. LUNGS: Has a few scattered rhonchi. ABDOMEN: Positive bowel sounds. Mild epigastric tenderness with palpation. EXTREMITIES: No gross edema. NEUROLOGIC: Awake, alert and follows simple commands. LABORATORY DATA: Sodium 138, potassium 3.1, chloride 101, bicarbonate 27, BUN 10, creatinine 0.6, glucose 85, calcium 8.3, AST 164, ALT 156, alkaline phosphatase is 175, and albumin 2.8. Microbiology, blood culture, and urine culture is no growth. Stool for C. diff is negative. MEDICATIONS: She is on Aldactone 25 mg daily, Dilaudid 0.5 mg q. 4 hours p.r.n., Flagyl 500 mg q. 8 hours, glipizide 10 mg daily, insulin coverage, Lasix 40 mg daily, Xyzal 5 mg daily, metoprolol tartrate 25 mg daily, Lyrica 75 mg daily, OxyContin extended release 10 mg daily twice a day, Protonix 40 mg daily, Singulair 10 mg daily, Tylenol p.r.n., Xanax 1 mg at bedtime and Xanax 0.5 mg daily, Zestril 10 mg daily, and Zofran p.r.n. basis. ASSESSMENT AND PLAN: Metastatic adenocarcinoma involving the head of the pancreas obstructing the ducts requiring a stent, liver metastasis, lungs metastasis, diabetes, hypertension, chronic obstructive lung disease and may have sleep apnea syndrome, colitis. From pulmonary point of view, doing well. Continue bronchodilator, keep head at 45 degrees. Oncology followup, out-of-bed to chair, fall precaution. We will replace potassium. Thank you and we will follow with you. Linnea Stephen MD [facility] # [id number]
[2017-07-22] MEDS: HYDROmorphone 0.5 mg/0.5 ml ISec IVP PRN ×2 (05:13→20:28)
[2017-07-22 06:59] LABS: ALB/GLOB RATIO 0.8 (1.1-1.8); ALKALINE PHOSPHATASE 163 U/L (38-126); ALT/SGPT 143 U/L (7-56); AST/SGOT 164 U/L (14-36); BILIRUBIN,TOTAL 0.9 mg/dL (0.2-1.3); BLOOD UREA NITROGEN 9 mg/dL (7-21); CALCIUM 8.3 mg/dL (8.4-10.5); CARBON DIOXIDE 29 mmol/L (21-33); CHLORIDE 103 mmol/L (95-110); GFR AFRICAN-AMERICAN > 60; GLUCOSE,RANDOM 99 mg/dL (70-110); SODIUM 136 mmol/L (132-148)
[2017-07-22 07:44] LABS: POTASSIUM 2.9 mmol/L (3.6-5.0)
--- NOTE | 2017-07-22 08:03 | PN ---
DATE: SUBJECTIVE: The patient is seen and examined on the bedside, feeling little bit better. No headache. Still having the diarrhea, Dr. Merchant put her on Flagyl. No vomiting. No swelling of the leg. No headache. No dizziness. No hematuria or hematochezia. PHYSICAL EXAMINATION: VITAL SIGNS: Temperature 98, heart rate 98, respiratory rate 20, blood pressure 114/79, and pulse oximetry 93% on room air. HEENT: Head is normocephalic and atraumatic. Eyes; PERRLA. Extraocular muscles are intact. Conjunctivae clear. Nose patent. Mucous membrane moist. NECK: Supple. No carotid bruits, JVD, or thyromegaly. CHEST: Bilaterally symmetrical. HEART: S1, S2 positive. LUNGS: Few scattered rhonchi. ABDOMEN: Positive bowel sounds. Mild epigastric tenderness with palpation. EXTREMITIES: No edema. No cyanosis. NEUROLOGICAL: The patient is awake and alert. Follows simple commands. LABORATORY DATA: Sodium 138, potassium 3.1, bicarbonate 27, BUN 10, glucose 85, creatinine 0.6, calcium 8.3. C. difficile toxin titer is negative. MEDICATIONS: Aldactone, Dilaudid, Flagyl started, glipizide, insulin, Lasix, Xyzal, metoprolol, OxyContin, Singulair, Protonix, Tylenol, Xanax, Zestril, and Zofran. ASSESSMENT AND PLAN: The patient is a 66-year-old female with history of diarrhea. Clostridium difficile toxin titers are negative. Dr. Merchant started the patient on Flagyl for empirical treatment. Metastatic renal carcinoma involving the head of the pancreas, obstructing thus requiring stent. Liver metastasis and lung metastasis. Diabetes mellitus, uncontrolled; hypertension; chronic obstructive pulmonary disease; obstructive sleep apnea; history of noncompliance; history of heavy smoking and heavy drinking; sleep apnea syndrome. The patient is improving. Physical therapy. Reviewed Dr. Stephen's notes, reviewed Amelia Wright' notes also. Gastrointestinal and deep venous thrombosis prophylaxis. Repeat labs. We will follow. Georgina Ferrara MD [facility] # [id number] [facility]
[2017-07-22] MEDS: Insulin Reg-LOW-Coverage SC SCH ×4 (08:45→21:21)
[2017-07-22] MEDS ORDERED: POTASSIUM CHL IV SCH (09:07)
[2017-07-22] MEDS ORDERED: D5W IV SCH (09:07)
[2017-07-22] MEDS: oxyCODONE 10 mg ER Tab (oxyCONTIN) PO SCH ×2 (10:21→17:39)
[2017-07-22] MEDS: Pantoprazole 40 mg EC Tab PO SCH (10:24)
[2017-07-22] MEDS: GlipiZIDE 10 mg SR Tab PO SCH (10:27)
[2017-07-22] MEDS ORDERED: Potassium Chloride 20 mEq ER Tab PO ONE (10:41)
[2017-07-22] MEDS: Amylase/Lipase/Protease 5,000 U ECC PO SCH ×3 (13:33→17:39)
--- NOTE | 2017-07-22 15:46 | CP.PCM.PN ---
<Amelia Wright - Last Filed: 07/22/17 15:44> Subjective - Date & Time of Evaluation Date of Evaluation: 07/22/17 Time of Evaluation: 09:50 - Subjective Subjective: Seen and examined earlier this morning. Patient states she was able tolerate a liquid but at night is where she has loose bowel movement the most. Diarrhea is slowly getting better but continues to have abdominal pain. Objective - Vital Signs/Intake and Output Vital Signs (last 24 hours): Temp Pulse Resp BP Pulse Ox 97.7 F 95 H 20 95/59 L 98 07/22/17 12:00 07/22/17 12:00 07/22/17 12:00 07/22/17 12:00 07/22/17 06:00 Intake and Output: 07/22/17 07/22/17 06:59 18:59 Intake Total 0 Balance 0 - Medications Medications: Current Medications Acetaminophen (Tylenol 325mg Tab) 650 mg PO TID PRN PRN Reason: Pain, Mild (1-3) Last Admin: 07/22/17 10:20 Dose: 650 mg Alprazolam (Xanax) 0.5 mg PO DAILY [facility] PRN Reason: Protocol Last Admin: 07/22/17 10:21 Dose: 0.5 mg Alprazolam (Xanax) 1 mg PO HS [facility] PRN Reason: Protocol Last Admin: 07/21/17 23:10 Dose: Not Given Amylase (Pancrease 70595 U-5000 U-61043 U) 10,000 u PO TID [facility] Last Admin: 07/22/17 14:41 Dose: 10,000 u Furosemide (Lasix) 20 mg PO DAILY [facility] Glipizide (Glucotrol Xl) 10 mg PO DAILY [facility] Last Admin: 07/22/17 10:27 Dose: 10 mg Hydromorphone HCl (Dilaudid) 0.5 mg IVP Q4H PRN PRN Reason: Pain, Mild (1-3) Last Admin: 07/22/17 05:13 Dose: 0.5 mg Insulin Human Regular (Humulin R Low) 0 units SC ACHS [facility] PRN Reason: Protocol Last Admin: 07/22/17 13:33 Dose: Not Given Lisinopril (Zestril) 10 mg PO DAILY [facility] Last Admin: 07/22/17 10:27 Dose: 10 mg Metoprolol Tartrate (Lopressor) 25 mg PO DAILY [facility] Last Admin: 07/22/17 10:26 Dose: 25 mg Metronidazole (Flagyl) 500 mg PO Q8 [facility] PRN Reason: Protocol Last Admin: 07/22/17 14:40 Dose: 500 mg Montelukast Sodium (Singulair) 10 mg PO DAILY [facility] Last Admin: 07/22/17 10:39 Dose: 10 mg Non-Formulary Medication (Levocetirizine Dihydrochloride [Xyzal]) 5 mg PO DAILY [facility] Last Admin: 07/22/17 10:53 Dose: Not Given Ondansetron HCl (Zofran Inj) 4 mg IVP Q4H PRN PRN Reason: Nausea/Vomiting Last Admin: 07/22/17 11:28 Dose: 4 mg Oxycodone HCl (Oxycontin Extended Release Tab) 10 mg PO BID [facility] Stop: 07/22/17 18:01 Last Admin: 07/22/17 10:21 Dose: 10 mg Pantoprazole Sodium (Protonix Ec Tab) 40 mg PO DAILY [facility] Last Admin: 07/22/17 10:24 Dose: 40 mg Pregabalin (Lyrica) 75 mg PO DAILY [facility] Last Admin: 07/22/17 10:21 Dose: 75 mg Spironolactone (Aldactone) 25 mg PO DAILY [facility] Last Admin: 07/22/17 10:53 Dose: 25 mg - Labs Labs: 07/20/17 05:40 07/22/17 06:00 PT 11.2 Seconds (9.9-11.8) 07/18/17 17:05 INR 1.04 (0.93-1.08) 07/18/17 17:05 APTT 37.3 Seconds (23.7-30.8) H 07/18/17 17:05 - Constitutional Appears: No Acute Distress - Head Exam Head Exam: NORMOCEPHALIC - Eye Exam Eye Exam: Normal appearance. absent: Scleral icterus - ENT Exam ENT Exam: Mucous Membranes Moist - Neck Exam Neck Exam: Normal Inspection - Respiratory Exam Respiratory Exam: NORMAL BREATHING PATTERN. absent: Respiratory Distress - Cardiovascular Exam Cardiovascular Exam: +S1, +S2 - GI/Abdominal Exam GI & Abdominal Exam: Soft, Tenderness, Normal Bowel Sounds. absent: Guarding, Rebound - Extremities Exam Extremities Exam: Normal Capillary Refill. absent: Calf Tenderness, Pedal Edema - Neurological Exam Neurological Exam: Alert, Awake, Oriented x3 - Skin Skin Exam: Dry, Warm Assessment and Plan - Assessment and Plan (Free Text) Assessment: Assessment: Abdominal pain Pancreatic cancer with metastasis Diarrhea, stool for C. difficile negative, could also be pancreatic insufficiency Colitis, small bowel and descending and sigmoid wall thickening Hypokalemia History of diabetes mellitus History of biliary stents Pancytopenia Hepatitis C Elevated LFT COPD Fibromyalgia Plan: advance diet to full liquid Continue PPI continue Flagyl DVT prophylaxis Zofran when necessary On the Dilaudid for pain Monitor electrolytes,replace potassium as necessary Start patient on pancreatic enzymes, see order Seen and discussed with Dr. Merchant. <Thang Merchant V - Last Filed: 07/22/17 22:09> Objective - Vital Signs/Intake and Output Vital Signs (last 24 hours): Temp Pulse Resp BP Pulse Ox 97.7 F 82 19 100/61 95 07/22/17 16:00 07/22/17 16:00 07/22/17 16:00 07/22/17 16:00 07/22/17 16:00 - Medications Medications: Current Medications Acetaminophen (Tylenol 325mg Tab) 650 mg PO TID PRN PRN Reason: Pain, Mild (1-3) Last Admin: 07/22/17 10:20 Dose: 650 mg Alprazolam (Xanax) 0.5 mg PO DAILY [facility] PRN Reason: Protocol Last Admin: 07/22/17 10:21 Dose: 0.5 mg Alprazolam (Xanax) 1 mg PO HS [facility] PRN Reason: Protocol Last Admin: 07/22/17 21:22 Dose: 1 mg Amylase (Pancrease 07035 U-5000 U-09830 U) 10,000 u PO TID [facility] Last Admin: 07/22/17 17:39 Dose: 10,000 u Furosemide (Lasix) 20 mg PO DAILY [facility] Glipizide (Glucotrol Xl) 10 mg PO DAILY [facility] Last Admin: 07/22/17 10:27 Dose: 10 mg Hydromorphone HCl (Dilaudid) 0.5 mg IVP Q4H PRN PRN Reason: Pain, Mild (1-3) Last Admin: 07/22/17 20:28 Dose: 0.5 mg Insulin Human Regular (Humulin R Low) 0 units SC ACHS [facility] PRN Reason: Protocol Last Admin: 07/22/17 21:21 Dose: Not Given Lisinopril (Zestril) 10 mg PO DAILY [facility] Last Admin: 07/22/17 10:27 Dose: 10 mg Metoprolol Tartrate (Lopressor) 25 mg PO DAILY [facility] Last Admin: 07/22/17 10:26 Dose: 25 mg Metronidazole (Flagyl) 500 mg PO Q8 [facility] PRN Reason: Protocol Last Admin: 07/22/17 21:20 Dose: 500 mg Montelukast Sodium (Singulair) 10 mg PO DAILY [facility] Last Admin: 07/22/17 10:39 Dose: 10 mg Non-Formulary Medication (Levocetirizine Dihydrochloride [Xyzal]) 5 mg PO DAILY [facility] Last Admin: 07/22/17 10:53 Dose: Not Given Ondansetron HCl (Zofran Inj) 4 mg IVP Q4H PRN PRN Reason: Nausea/Vomiting Last Admin: 07/22/17 11:28 Dose: 4 mg Pantoprazole Sodium (Protonix Ec Tab) 40 mg PO DAILY [facility] Last Admin: 07/22/17 10:24 Dose: 40 mg Pregabalin (Lyrica) 75 mg PO DAILY [facility] Last Admin: 07/22/17 10:21 Dose: 75 mg Spironolactone (Aldactone) 25 mg PO DAILY [facility] Last Admin: 07/22/17 10:53 Dose: 25 mg - Labs Labs: 07/20/17 05:40 07/22/17 06:00 PT 11.2 Seconds (9.9-11.8) 07/18/17 17:05 INR 1.04 (0.93-1.08) 07/18/17 17:05 APTT 37.3 Seconds (23.7-30.8) H 07/18/17 17:05 Attending/Attestation - Attestation I have personally seen and examined this patient.: Yes I have fully participated in the care of the patient.: Yes I have reviewed all pertinent clinical information, including history, physical exam and plan: Yes Notes (Text): This is an addendum to GI progress report dictated by Amelia Wright APN.The patient was seen and examined earlier. Medical records, lab studies, imagings were reviewed. Last 24 hours events reviewed. Agreed with the above treatment plan as outlined in Amelia Wright NP's notes the with the addition of the following patient is unclear and should supplement tolerating still complains of loose bowel movements PART OF THE DIARRHEA COULD BE SECONDARY TO RESUME ALL ABSORPTION FROM EXOCRINE PANCREATIC INSUFFICIENCY Would start the patient on pancreatic enzyme supplements Would continue empiric therapy with Flagyl or possible antibiotic-induced diarrhea 07/22/17 22:08
[2017-07-22] MEDS ORDERED: Dextrose 50% SYRINGE Inj (50 ml) IVP STA (18:45)
--- NOTE | 2017-07-22 19:08 | PN ---
DATE: 07/22/2017. REFERRING PHYSICIAN: Georgina Ferrara MD SUBJECTIVE: The patient is sitting at side of the bed, has mild abdominal pain, had a loose bowel movement. No cough. No sputum production. No nausea. No leg pain or leg swelling. OBJECTIVE: GENERAL: No acute distress. VITAL SIGNS: Temperature is 98, heart rate is 82, respiratory rate is 20, blood pressure 100/61, pulse ox 95%. HEENT: Moist mucous membranes. Crowded airway. NECK: Supple. No JVD. LUNGS: Has a fair airflow with few rhonchi. HEART: S1 and S2. ABDOMEN: Soft, mild tenderness in the epigastric area. EXTREMITIES: There is not much edema. NEUROLOGIC: Awake, alert, follows simple commands. MEDICATIONS: She is on Aldactone 25 mg daily, Dilaudid 0.5 mg IV q. 4 hours p.r.n., Flagyl 500 mg q. 8 hours, glipizide 10 mg daily, insulin coverage, Lasix 20 mg daily, on Xyzal 5 mg daily, metoprolol tartrate 25 mg daily, Lyrica 75 mg daily, OxyContin extended release 10 mg twice a day, amylase pancreas 1000 units p.o. 3 times a day, Protonix 40 mg daily, Singulair 10 mg daily, Tylenol p.r.n. basis, Xanax 1 mg at bedtime, Xanax also 0.5 mg daily, Zestril 10 mg daily, Zofran p.r.n. basis. LABORATORY DATA: Reviewed. Sodium 136, potassium 2.9, chloride 103, bicarbonate 29, BUN 9, creatinine 0.7, glucose 99, calcium 8.3, magnesium 1.8. AST 164, ALT 143, alk phos is 163, albumin is 2.7. Microbiology, blood culture has been negative. Stool for C. diff is negative. 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 Pulmonary point of view doing okay. Continue bronchodilator, keep head at 45 degrees, pain management. Being followed by gastroenterology. Replace potassium. Follow up labs in the morning. Thank you and we will follow with you. Linnea Stephen MD
[2017-07-23] MEDS: HYDROmorphone 0.5 mg/0.5 ml ISec IVP PRN ×5 (00:09→20:47)
--- NOTE | 2017-07-23 02:03 | PN ---
DATE: SUBJECTIVE: The patient is seen and examined on the bedside, looking comfortable, still has diarrhea. No nausea, vomiting. No shortness of breath and cough is better. No swelling of the leg. PHYSICAL EXAMINATION: VITAL SIGNS: Temperature 98.0, heart rate 82, respiratory rate 20, blood pressure 100/50, and pulse oximetry 95%. HEENT: Head is normocephalic and atraumatic. Eyes; PERRLA. Extraocular muscles are intact. Conjunctivae clear. Nose patent. Mucous membrane moist. NECK: Supple. No carotid bruits, JVD, or thyromegaly. LUNGS: Has airflow with rhonchi. HEART: S1, S2 positive. ABDOMEN: Soft. Mild tenderness in the epigastric area. EXTREMITIES: No edema. No cyanosis. NEUROLOGICAL: The patient is awake and alert. Follows simple commands. MEDICATIONS: Aldactone, Dilaudid, Flagyl, glipizide, insulin, Lasix, Xyzal, metoprolol, Lyrica, OxyContin, olanzapine, Pentavir, Protonix, Singulair, Tylenol, Xanax, Zestril, Zofran. LABS: Sodium 132, potassium 2.9, BUN 9, creatinine 0.7. ASSESSMENT AND PLAN: Ms. Hortensia Love is a 66-year-old lady with metastatic adenocarcinoma involving the head of the pancreas, obstructing the ducts, requiring stent, liver metastasis, lung metastasis, chronic obstructive lung disease, diabetes mellitus, obstructive sleep apnea syndrome, noncompliance, hypertension, hypokalemia, replaced, colitis. The patient is improving. Continue bronchodilators, pain management, replace potassium. Gastrointestinal and deep venous thrombosis prophylaxis. Reviewed Dr. Stephen's notes, reviewed Amelia Wright' notes also. Anemia and leukopenia, thrombocytopenia, actually pancytopenia, that is the supplements. Gastrointestinal and deep venous thrombosis prophylaxis. Repeat labs. We will follow. Georgina Ferrara MD
[2017-07-23 07:00] LABS: HEMATOCRIT 31.4 % (36.0-48.0); MEAN CELL VOLUME 79.7 fl (80.0-105.0); MEAN CORPUSCULAR HEMOGLOBIN 26.4 pg (25.0-35.0); MEAN CORPUSCULAR HGB CONC 33.1 g/dl (31.0-37.0); MEAN PLATELET VOLUME 9.4 fl (7.0-11.0); RED CELL DISTRIBUTION WIDTH 15.9 % (11.5-14.5); WHITE BLOOD COUNT 7.2 10^3/ul (4.5-11.0)
[2017-07-23 07:01] LABS: ALB/GLOB RATIO 0.8 (1.1-1.8); ALKALINE PHOSPHATASE 140 U/L (38-126); ALT/SGPT 107 U/L (7-56); AST/SGOT 105 U/L (14-36); BILIRUBIN,TOTAL 0.8 mg/dL (0.2-1.3); BLOOD UREA NITROGEN 8 mg/dL (7-21); CALCIUM 8.3 mg/dL (8.4-10.5); CARBON DIOXIDE 25 mmol/L (21-33); CHLORIDE 104 mmol/L (95-110); GFR AFRICAN-AMERICAN > 60; GLUCOSE,RANDOM 123 mg/dL (70-110); POTASSIUM 3.1 mmol/L (3.6-5.0); SODIUM 136 mmol/L (132-148); TOTAL PROTEIN 5.5 g/dL (5.8-8.3)
[2017-07-23] MEDS: GlipiZIDE 10 mg SR Tab PO SCH (09:20)
[2017-07-23] MEDS: Insulin Reg-LOW-Coverage SC SCH ×3 (09:21→16:43)
[2017-07-23] MEDS: Amylase/Lipase/Protease 5,000 U ECC PO SCH ×3 (09:23→17:00)
[2017-07-23] MEDS: Pantoprazole 40 mg EC Tab PO SCH (09:24)
--- NOTE | 2017-07-23 15:38 | CP.PCM.PN ---
<Amelia Wright - Last Filed: 07/23/17 15:38> Subjective - Date & Time of Evaluation Date of Evaluation: 07/23/17 Time of Evaluation: 09:50 - Subjective Subjective: Seen and examined at the bedside earlier today, tolerating oral intake better, had at least 75% of her dinner last night. Denies nausea vomiting, postprandial BMs are less. No reports of any overt GI bleed. Still experiences abdominal discomfort. On analgesia when necessary with relief Objective - Vital Signs/Intake and Output Vital Signs (last 24 hours): Temp Pulse Resp BP Pulse Ox 97.8 F 105 H 20 107/75 97 07/23/17 07:50 07/23/17 09:25 07/23/17 07:50 07/23/17 09:25 07/23/17 07:50 Intake and Output: 07/23/17 07/23/17 06:59 18:59 Intake Total 120 420 Output Total 1 Balance 119 420 - Medications Medications: Current Medications Acetaminophen (Tylenol 325mg Tab) 650 mg PO TID PRN PRN Reason: Pain, Mild (1-3) Last Admin: 07/22/17 10:20 Dose: 650 mg Alprazolam (Xanax) 0.5 mg PO DAILY [facility] PRN Reason: Protocol Last Admin: 07/23/17 09:24 Dose: 0.5 mg Alprazolam (Xanax) 1 mg PO HS [facility] PRN Reason: Protocol Last Admin: 07/22/17 21:22 Dose: 1 mg Amylase (Pancrease 71705 U-5000 U-76285 U) 10,000 u PO TID [facility] Last Admin: 07/23/17 13:31 Dose: 10,000 u Furosemide (Lasix) 20 mg PO DAILY [facility] Last Admin: 07/23/17 09:21 Dose: 20 mg Glipizide (Glucotrol Xl) 10 mg PO DAILY [facility] Last Admin: 07/23/17 09:20 Dose: 10 mg Hydromorphone HCl (Dilaudid) 0.5 mg IVP Q4H PRN PRN Reason: Pain, Mild (1-3) Last Admin: 07/23/17 10:26 Dose: 0.5 mg Insulin Human Regular (Humulin R Low) 0 units SC ACHS [facility] PRN Reason: Protocol Last Admin: 07/23/17 13:08 Dose: Not Given Lisinopril (Zestril) 10 mg PO DAILY [facility] Last Admin: 07/23/17 09:25 Dose: Not Given Metoprolol Tartrate (Lopressor) 25 mg PO DAILY [facility] Last Admin: 07/23/17 09:22 Dose: 25 mg Metronidazole (Flagyl) 500 mg PO Q8 [facility] PRN Reason: Protocol Last Admin: 07/23/17 13:31 Dose: 500 mg Montelukast Sodium (Singulair) 10 mg PO DAILY [facility] Last Admin: 07/23/17 09:24 Dose: 10 mg Non-Formulary Medication (Levocetirizine Dihydrochloride [Xyzal]) 5 mg PO DAILY [facility] Last Admin: 07/23/17 09:22 Dose: Not Given Ondansetron HCl (Zofran Inj) 4 mg IVP Q4H PRN PRN Reason: Nausea/Vomiting Last Admin: 07/22/17 11:28 Dose: 4 mg Pantoprazole Sodium (Protonix Ec Tab) 40 mg PO DAILY [facility] Last Admin: 07/23/17 09:24 Dose: 40 mg Pregabalin (Lyrica) 75 mg PO DAILY [facility] Last Admin: 07/23/17 09:23 Dose: 75 mg Spironolactone (Aldactone) 25 mg PO DAILY [facility] Last Admin: 07/23/17 09:19 Dose: 25 mg - Labs Labs: 07/23/17 06:33 07/23/17 06:33 PT 11.2 Seconds (9.9-11.8) 07/18/17 17:05 INR 1.04 (0.93-1.08) 07/18/17 17:05 APTT 37.3 Seconds (23.7-30.8) H 07/18/17 17:05 - Constitutional Appears: No Acute Distress - Head Exam Head Exam: NORMOCEPHALIC - Eye Exam Eye Exam: Normal appearance. absent: Scleral icterus - ENT Exam ENT Exam: Mucous Membranes Moist - Respiratory Exam Respiratory Exam: Clear to Ausculation Bilateral, NORMAL BREATHING PATTERN. absent: Respiratory Distress - Cardiovascular Exam Cardiovascular Exam: +S1, +S2 - GI/Abdominal Exam GI & Abdominal Exam: Soft, Tenderness, Normal Bowel Sounds. absent: Distended, Guarding, Rebound - Extremities Exam Extremities Exam: Normal Capillary Refill. absent: Calf Tenderness, Pedal Edema - Neurological Exam Neurological Exam: Alert, Awake, Oriented x3 - Skin Skin Exam: Dry, Warm Assessment and Plan - Assessment and Plan (Free Text) Assessment: Assessment: Abdominal pain Pancreatic cancer with metastasis Diarrhea, stool for C. difficile negative, could also be pancreatic insufficiency Colitis, small bowel and descending and sigmoid wall thickening Hypokalemia History of diabetes mellitus History of biliary stents Pancytopenia Hepatitis C Elevated LFT, slowly improving COPD Fibromyalgia Plan: advance diet to low fat moderate carbohydrate soft diet Continue PPI Trend LFT Continue pancreatic enzymes continue Flagyl DVT prophylaxis Zofran when necessary On the Dilaudid for pain Monitor electrolytes,replace potassium as necessary Seen and discussed with Dr. Merchant. <Thang Merchant V - Last Filed: 07/23/17 21:07> Objective - Vital Signs/Intake and Output Vital Signs (last 24 hours): Temp Pulse Resp BP Pulse Ox 98.2 F 97 H 20 110/65 97 07/23/17 16:00 07/23/17 16:00 07/23/17 16:00 07/23/17 16:00 07/23/17 16:00 Intake and Output: 07/23/17 07/24/17 18:59 06:59 Intake Total 420 Balance 420 - Medications Medications: Current Medications Acetaminophen (Tylenol 325mg Tab) 650 mg PO TID PRN PRN Reason: Pain, Mild (1-3) Last Admin: 07/22/17 10:20 Dose: 650 mg Alprazolam (Xanax) 0.5 mg PO DAILY [facility] PRN Reason: Protocol Last Admin: 07/23/17 09:24 Dose: 0.5 mg Alprazolam (Xanax) 1 mg PO HS [facility] PRN Reason: Protocol Last Admin: 07/22/17 21:22 Dose: 1 mg Amylase (Pancrease 74998 U-5000 U-78930 U) 10,000 u PO TID [facility] Last Admin: 07/23/17 17:00 Dose: 10,000 u Furosemide (Lasix) 20 mg PO DAILY [facility] Last Admin: 07/23/17 09:21 Dose: 20 mg Glipizide (Glucotrol Xl) 10 mg PO DAILY [facility] Last Admin: 07/23/17 09:20 Dose: 10 mg Hydromorphone HCl (Dilaudid) 0.5 mg IVP Q4H PRN PRN Reason: Pain, Mild (1-3) Last Admin: 07/23/17 15:48 Dose: 0.5 mg Insulin Human Regular (Humulin R Low) 0 units SC ACHS [facility] PRN Reason: Protocol Last Admin: 07/23/17 16:43 Dose: Not Given Lisinopril (Zestril) 10 mg PO DAILY [facility] Last Admin: 07/23/17 09:25 Dose: Not Given Metoprolol Tartrate (Lopressor) 25 mg PO DAILY [facility] Last Admin: 07/23/17 09:22 Dose: 25 mg Metronidazole (Flagyl) 500 mg PO Q8 [facility] PRN Reason: Protocol Last Admin: 07/23/17 13:31 Dose: 500 mg Montelukast Sodium (Singulair) 10 mg PO DAILY [facility] Last Admin: 07/23/17 09:24 Dose: 10 mg Non-Formulary Medication (Levocetirizine Dihydrochloride [Xyzal]) 5 mg PO DAILY [facility] Last Admin: 07/23/17 09:22 Dose: Not Given Ondansetron HCl (Zofran Inj) 4 mg IVP Q4H PRN PRN Reason: Nausea/Vomiting Last Admin: 07/22/17 11:28 Dose: 4 mg Pantoprazole Sodium (Protonix Ec Tab) 40 mg PO DAILY [facility] Last Admin: 07/23/17 09:24 Dose: 40 mg Pregabalin (Lyrica) 75 mg PO DAILY [facility] Last Admin: 07/23/17 09:23 Dose: 75 mg Spironolactone (Aldactone) 25 mg PO DAILY [facility] Last Admin: 07/23/17 09:19 Dose: 25 mg - Labs Labs: 07/23/17 06:33 07/23/17 17:20 PT 11.2 Seconds (9.9-11.8) 07/18/17 17:05 INR 1.04 (0.93-1.08) 07/18/17 17:05 APTT 37.3 Seconds (23.7-30.8) H 07/18/17 17:05 Attending/Attestation - Attestation I have personally seen and examined this patient.: Yes I have fully participated in the care of the patient.: Yes I have reviewed all pertinent clinical information, including history, physical exam and plan: Yes Notes (Text): This is an addendum to GI progress report dictated by Amelia Wright APN.The patient was seen and examined earlier. Medical records, lab studies, imagings were reviewed. Last 24 hours events reviewed. Agreed with the above treatment plan as outlined in Amelia Wright NP's notes the with the addition of the following tolerating the diet On plan pancreatic enzyme supplements and we will Flagyl Abdomen soft no tenderness now Would continue Flagyl and getting enzyme supplements Thank you very much for allowing us to participate in the care of the patient
[2017-07-23 17:43] LABS: ALB/GLOB RATIO 0.9 (1.1-1.8); ALKALINE PHOSPHATASE 133 U/L (38-126); ALT/SGPT 101 U/L (7-56); AST/SGOT 81 U/L (14-36); BILIRUBIN,TOTAL 0.6 mg/dL (0.2-1.3); BLOOD UREA NITROGEN 8 mg/dL (7-21); CALCIUM 8.3 mg/dL (8.4-10.5); CARBON DIOXIDE 26 mmol/L (21-33); CHLORIDE 103 mmol/L (98-107); GFR AFRICAN-AMERICAN > 60; GLUCOSE,RANDOM 74 mg/dL (70-110); POTASSIUM 3.5 mmol/L (3.6-5.0); SODIUM 136 mmol/L (132-148); TOTAL PROTEIN 5.4 g/dL (5.8-8.3)
--- NOTE | 2017-07-23 20:41 | PN ---
PULMONARY PROGRESS NOTE DATE: 07/23/2017 REFERRING PHYSICIAN: Georgina Ferrara MD. SUBJECTIVE: The patient is lying in the bed, still has some abdominal pain and watery stool, being followed by gastroenterology. No headache. No rhinitis. No cough. No sputum production. No leg pain and no leg swelling. PHYSICAL EXAMINATION: GENERAL: In no acute distress. VITAL SIGNS: Temperature is 98, heart rate is 97, respiratory rate is 20, blood pressure 110/65, pulse oximetry is 97% on room air. HEENT: Moist mucous membranes. Crowded airway. Mallampati score is IV. NECK: Supple. No JVD. LUNGS: Has a fair airflow with few rhonchi. HEART: S1 and S2. ABDOMEN: Mild epigastric tenderness. EXTREMITIES: There is no edema. NEUROLOGIC: Awake and alert. Follows simple commands. MEDICATIONS: She is on Aldactone 25 mg daily, Dilaudid 0.5 mg q.4h. p.r.n., Flagyl 500 mg q.8h., glipizide 10 mg daily, insulin coverage, Lasix 200 mg daily, Xyzal 5 mg daily, metoprolol tartrate 25 mg daily, Lyrica 75 mg daily, amylase and lipase 10,000 units three times a day, Protonix 40 mg daily, Singulair 10 mg daily, Tylenol p.r.n., Xanax 1 mg bedtime and also Xanax 0.5 mg daily, Zestril 10 mg daily, and Zofran p.r.n. basis. LABORATORY DATA: Laboratory data shows hemoglobin 10.4, hematocrit 31.4, WBC is 7.2, platelet count is 53. Sodium 136, potassium 3.5, chloride 103, bicarbonate 26, BUN 8, creatinine 0.7, glucose 74, calcium is 8.3. AST 81, ALT 101, alkaline phosphatase is 133, albumin is 2.5. Microbiology, blood culture and urine culture, there is no growth and even stool, C. diff being negative. IMPRESSION AND PLAN: Metastatic adenocarcinoma involving the head of the pancreas obstructing the ducts requiring stent. Liver metastasis, lung metastasis, chronic obstructive lung disease, obstructive sleep apnea syndrome, hypertension, diabetes, colitis, diarrhea, again started on Flagyl, being followed by GI. Pulmonary point of view, doing well. Keep head 45 degree. Bronchodilator. Pain management. Gastric and DVT prophylaxis. We will follow with you. Linnea Stephen MD
--- NOTE | 2017-07-24 00:06 | PN ---
DATE: SUBJECTIVE: The patient is 66 years old female. The patient was seen and examined at the bedside in the telemetry, still having diarrhea, and no nausea or vomiting. Has low potassium, gave 2 riders. GI is on the case. Sometime feeling abdominal discomfort. Getting pain medication. No fever, no chills. No headache, no dizziness. PHYSICAL EXAMINATION VITAL SIGNS: Temperature 97.8, pulse 105, respirations 20, blood pressure /75, pulse oximetry 97. HEENT: Head, normocephalic and atraumatic. Eyes; PERRLA. Extraocular muscles intact. Conjunctivae clear. Nose patent. Mucous membrane moist. NECK: Supple. No carotid bruits or thyromegaly. CHEST: Bilaterally symmetrical. HEART: S1 and S2 positive. LUNGS: Clear to auscultation. ABDOMEN: Soft. Bowel sounds present. No organomegaly. EXTREMITIES: No edema. No cyanosis. NEUROLOGICAL: The patient is awake, alert, moving all 4 extremities. No focal deficit. MEDICATIONS: Tylenol, Xanax, Pancrease, Glucotrol, insulin, Zestril, Flagyl, Singulair, and Protonix. LABORATORY DATA: White blood cells 7.2, hemoglobin 10.4, hematocrit of 31.4, platelets of 53. Sodium 133, potassium 3.1, BUN 8, creatinine 0.7, glucose 126. ASSESSMENT AND PLAN: Mrs. Ivan Bazan is 66 years old lady with anemia, thrombocytopenia, hypokalemia. Gave two runs of K-riders, hyperglycemia. Has pancreatic cancer with metastasis; abdominal pain; diarrhea, stool for Clostridium difficile toxin negative; could also be pancreatic insufficiency; colitis; small bowel and descending sigmoid wall thickening; uncontrolled diabetes mellitus; biliary stents; pancytopenia; hepatitis C; history of abnormal liver function tests, trending down; chronic obstructive pulmonary disease; fibromyalgia. Gastroenterology is on the case. Advance diet to low fat moderate carbohydrate soft diet. Continue PPI. Continue pancreatic enzymes, Flagyl. Deep venous thrombosis and gastrointestinal prophylaxis. Zofran as necessary. The patient is getting Dilaudid for pain and monitor electrolytes. Discussion done with the nursing staff. We will follow up. Georgina Ferrara MD
[2017-07-24] MEDS: HYDROmorphone 0.5 mg/0.5 ml ISec IVP PRN ×6 (01:00→23:53)
[2017-07-24] MEDS: Insulin Reg-LOW-Coverage SC SCH ×5 (02:25→21:56)
[2017-07-24 07:13] LABS: HEMATOCRIT 30.2 % (36.0-48.0); MEAN CELL VOLUME 79.1 fl (80.0-105.0); MEAN CORPUSCULAR HEMOGLOBIN 26.7 pg (25.0-35.0); MEAN CORPUSCULAR HGB CONC 33.8 g/dl (31.0-37.0); MEAN PLATELET VOLUME 9.8 fl (7.0-11.0); RED CELL DISTRIBUTION WIDTH 16.4 % (11.5-14.5); WHITE BLOOD COUNT 8.2 10^3/ul (4.5-11.0)
[2017-07-24 07:20] LABS: BLOOD UREA NITROGEN 7 mg/dL (7-21); CALCIUM 8.2 mg/dL (8.4-10.5); CARBON DIOXIDE 27 mmol/L (21-33); CHLORIDE 103 mmol/L (98-107); GFR AFRICAN-AMERICAN > 60; GLUCOSE,RANDOM 50 mg/dL (70-110); SODIUM 136 mmol/L (132-148)
[2017-07-24 07:32] LABS: POTASSIUM 2.8 mmol/L (3.6-5.0)
[2017-07-24] MEDS: Amylase/Lipase/Protease 5,000 U ECC PO SCH ×3 (09:02→17:38)
[2017-07-24] MEDS: Pantoprazole 40 mg EC Tab PO SCH (09:02)
[2017-07-24] MEDS: GlipiZIDE 10 mg SR Tab PO SCH (09:03)
[2017-07-24] MEDS: Sodium Chloride 0.9% 1,000 ML IV SCH ×2 (09:04→23:53)
--- NOTE | 2017-07-24 18:52 | PN ---
SUBJECTIVE: The patient was seen and examined at the bedside, still having the diarrhea, feeling fatigue and tired. No headache, no dizziness. No nausea or vomiting. No chest pain, no palpitation. Still having abdominal pain. PHYSICAL EXAMINATION: VITAL SIGNS: Temperature 98.2, pulse 84, blood pressure 88/54, respiratory rate 18, oxygen saturation 99. HEENT: Head: Normocephalic and atraumatic. Eyes: PERRLA. Extraocular muscles intact. Conjunctivae clear. Nose patent. Mucous membrane moist. NECK: Supple. No carotid bruits. No JVD or thyromegaly. CHEST: Bilaterally symmetrical. HEART: S1 and S2 positive. LUNGS: Clear to auscultation. ABDOMEN: Soft, tender with deep palpitation. EXTREMITIES: No edema. No cyanosis. NEUROLOGIC: The patient is awake, alert, moving all 4 extremities. No focal deficit. MEDICATIONS: Aldactone, Dilaudid, Flagyl, Glucotrol, insulin, Lasix, Xyzal, Lopressor, Lyrica, vitamin D, Protonix, Singulair, antacid, Tylenol, Xanax, Zofran. LABORATORY DATA: White blood cells 8.2, hemoglobin 10.2, hematocrit 30.2, platelets of 91. Sodium 136, potassium 2.8, BUN 7, creatinine 0.6, glucose 46, calcium 8.2. ASSESSMENT AND PLAN: The patient is 66 years old lady with hypokalemia. Gave 2 runs of K-rider 20 mEq. We will repeat potassium tomorrow. Hypotension, started the patient on normal saline and hold all blood pressure medications. Hypocalcemia, we will give some calcium. Abnormal liver function test. Leukocytosis, leukopenia is getting better. Has anemia, thrombocytopenia. Metastatically known carcinoma of the pancreas obstructing the duct system requiring internal stenting, liver metastasis, lung metastasis, chronic history of lung disease, sleep apnea syndrome, colitis, and diarrhea. The patient is on Flagyl. GI is on the case. Pulmonary is on the case. Bronchodilators. GI prophylaxis. I will follow up. Georgina Ferrara MD
[2017-07-24] MEDS ORDERED: Dextrose 50% SYRINGE Inj (50 ml) IVP ONE (20:51)
--- NOTE | 2017-07-24 22:25 | PN ---
DATE: 07/24/2017 PULMONARY PROGRESS NOTE REFERRING PHYSICIAN: Georgina Ferrara MD SUBJECTIVE: She is lying in the bed, feels okay. Still has epigastric pain. No cough. No shortness of breath. Still have a loose bowel movement, but improved. No leg pain and no leg swelling. PHYSICAL EXAMINATION GENERAL: In no acute distress. VITAL SIGNS: Temperature is 98, heart rate is 84, respiratory rate is 18, blood pressure is 88/54, and pulse oximetry 99% on room air. HEENT: Moist mucous membranes and crowded airway. Mallampati score is IV. NECK: Supple. No JVD. LUNGS: Has a fair airflow with few rhonchi. HEART: S1 and S2. ABDOMEN: Positive bowel sound, epigastric tenderness. EXTREMITIES: Not much edema. NEUROLOGIC: Awake and alert. Follows simple commands. MEDICATIONS: She is on Aldactone 25 mg daily, Dilaudid 0.5 mg IV q. 4 hours p.r.n., Flagyl 500 mg q. 8 hours, Glucotrol XL 10 mg daily, insulin coverage, Lasix 20 mg daily, levocetirizine 5 mg daily, metoprolol tartrate 12.5 mg daily, Lyrica 75 mg daily, amylase/pancreas is 10,000 units three times a day, Protonix 40 mg daily, Singulair 10 mg daily, IV fluid as in normal saline is 50 mL, Tylenol p.r.n., Xanax 1 mg bedtime and also Zofran p.r.n. basis. LABORATORY DATA: Shows hemoglobin 10.2, hematocrit 30.2, WBC is 8.2, and platelet count is 91. Sodium 136, potassium 2.8, chloride 103, bicarbonate 27, BUN 7, creatinine 0.6, glucose 50, and calcium is 8.2. Stool for C. diff has been negative. Blood culture has been negative. IMPRESSION AND PLAN: Metastatic adenocarcinoma, metastasis to the pancreatic head, liver, lungs, obstructing ductal system, requiring stent; diabetes; chronic lung disease, sleep apnea syndrome, hypertension, presently has hypotension. H and H has been stable. Probably she has a poor intake with diarrhea, the potassium is low. We will suggest for now discontinue Aldactone and Lasix. Follow blood pressure closely. We will leave present metoprolol dose. Agree with the IV fluid. Gastric prophylaxis, DVT prophylaxis, bronchodilator, pain management. Overall, poor prognosis. Thank you and we will follow with you. Linnea Stephen MD
[2017-07-25] MEDS: HYDROmorphone 0.5 mg/0.5 ml ISec IVP PRN ×5 (05:10→20:03)
[2017-07-25] MEDS ORDERED: HYDROmorphone 0.5 mg/0.5 ml ISec IVP STA (05:49)
[2017-07-25 07:13] LABS: HEMATOCRIT 28.4 % (36.0-48.0); MEAN CELL VOLUME 79.3 fl (80.0-105.0); MEAN CORPUSCULAR HEMOGLOBIN 26.3 pg (25.0-35.0); MEAN CORPUSCULAR HGB CONC 33.1 g/dl (31.0-37.0); MEAN PLATELET VOLUME 9.1 fl (7.0-11.0); RED CELL DISTRIBUTION WIDTH 16.9 % (11.5-14.5); WHITE BLOOD COUNT 7.8 10^3/ul (4.5-11.0)
[2017-07-25 07:31] LABS: BLOOD UREA NITROGEN 5 mg/dL (7-21); CALCIUM 7.8 mg/dL (8.4-10.5); CARBON DIOXIDE 23 mmol/L (21-33); CHLORIDE 107 mmol/L (98-107); GFR AFRICAN-AMERICAN > 60; GLUCOSE,RANDOM 70 mg/dL (70-110); POTASSIUM 3.3 mmol/L (3.6-5.0); SODIUM 138 mmol/L (132-148)
[2017-07-25] MEDS: Insulin Reg-LOW-Coverage SC SCH ×4 (08:01→22:00)
[2017-07-25] MEDS: Pantoprazole 40 mg EC Tab PO SCH (09:21)
[2017-07-25] MEDS: Amylase/Lipase/Protease 5,000 U ECC PO SCH ×4 (09:21→17:41)
[2017-07-25] MEDS: Dextrose 5%/0.9% NS 1,000 ML IV SCH (17:37)
--- NOTE | 2017-07-25 21:11 | PN ---
DATE: 07/25/2017 SUBJECTIVE: This patient has diarrhea, feels much better, tolerating the diet. The diarrhea has significantly improved. The patient is on 10,000 units of pancreatic enzyme supplement three times a day with meals. The patient is also on Flagyl 500 mg q. 8 hour. Overall, the patient is doing better. PHYSICAL EXAMINATION: VITAL SIGNS: Temperature 97.6, blood pressure 117/87, pulse 97, respiration is 19 and O2 saturation 99%. HEENT: Atraumatic and nonicteric. NECK: Supple. HEART: S1 and S2 heard. LUNGS: Bilateral air entry present. ABDOMEN: Soft. There is no mass palpable. No tenderness. IMPRESSION: This is a 66-year old patient with a metastatic pancreatic cancer admitted with abdominal pain, diarrhea, colitis, possible enteritis clinically improving on pancreatic enzyme supplement and also empirically on p.o. Flagyl. The patient has a status post biliary stent placement. Would increase the pancreatic enzyme supplement from 10,000 to 15,000 units to be taken with the meals. Also continue the Flagyl. We will continue discontinue the Flagyl after tomorrow's dose. Thank you very much for allowing me to participate in the care of the patient. Thang Merchant MD
--- NOTE | 2017-07-25 22:37 | PN ---
DATE: SUBJECTIVE: The patient was seen and examined at the bedside, still having the diarrhea, though frequency decreased. Still complaining abdominal pain going to the back , 0.5 mg Dilaudid is not holding her pain. No headache, no dizziness. No chest pain, no palpitation. No fever. No chills. PHYSICAL EXAMINATION: VITAL SIGNS: Temperature 97.6, pulse 97, blood pressure 117/87, respiratory rate 19. HEENT: Head: Normocephalic and atraumatic. Eyes: PERRLA. Extraocular muscles intact. Conjunctivae clear. Nose patent. Mucous membrane moist. NECK: Supple. No carotid bruits. No JVD or thyromegaly. CHEST: Bilaterally symmetrical. HEART: S1 and S2 positive. LUNGS: Clear to auscultation. ABDOMEN: Soft. Positive bowel sounds. No organomegaly. EXTREMITIES: No edema. No cyanosis. NEUROLOGIC: The patient is awake, alert, moving all 4 extremities. No focal deficit. MEDICATIONS: Dilaudid, Flagyl, insulin, Xyzal, Lopressor, Lyrica, Amylase, pantoprazole, Singulair, normal saline, Tylenol, Xanax, and Zofran. LABORATORY DATA: White blood cells 7.8, hemoglobin 9.4, hematocrit 28.4 and platelets of 122. Sodium 130, potassium 3.3, BUN 5, creatinine 0.6, glucose 53 and calcium 7.8. ASSESSMENT AND PLAN: Ms. Hortensia Love is a 66 years old lady with history of leukopenia improved; anemia; hypokalemia, a 2 runs of K-rider given; hypoglycemia, encouraging to eat; hypocalcemia; metastatic adenocarcinoma of the pancreas; mass in the liver and lungs obstructing the duct system, stenting was done; hypoglycemia; chronic obstructive pulmonary disease; sleep apnea syndrome; hypertension, has episode of hypotension, got normal saline, we are monitoring H&H. Pain of malignancy, getting Dilaudid. Hypokalemia gave 2 runs of K-rider. Dr. Stpehen discontinued Lasix and Aldactone. I stop all blood pressure medications. I have stopped the metoprolol because of tachycardia. Gastric prophylaxis with deep venous thrombosis prophylaxis. Repeat labs. We will follow up. Georgina Ferrara MD [facility] # [id number]
[2017-07-26] MEDS: HYDROmorphone 1 mg/ml ISec IVP PRN ×6 (00:08→20:29)
--- NOTE | 2017-07-26 01:39 | PN ---
PULMONARY PROGRESS NOTE DATE: 07/25/2017 REFERRING PHYSICIAN: Georgina Ferrara MD SUBJECTIVE: The patient is lying in the bed. Night was unremarkable. Has a loose bowel movement. No diarrhea. Still having epigastric abdominal pain. No cough. No shortness of breath. OBJECTIVE: GENERAL: In no acute distress. VITAL SIGNS: Temperature is 98, heart rate is 97, respiratory rate is 20, blood pressure is 126/79, and pulse ox is 100% on room air. HEENT: Moist mucous membranes and crowded airway. NECK: Supple. No JVD. LUNGS: Has a fair airflow with few rhonchi. HEART: S1 and S2. ABDOMEN: Soft and nontender, has epigastric tenderness. EXTREMITIES: There is no edema. NEUROLOGIC: Awake and alert. Follows simple commands. MEDICATIONS: She is on IV fluid D5 normal saline 100 mL per hour, Dilaudid 1 mg q.4 hours p.r.n., metronidazole 500 mg q.8 hours, insulin coverage, potassium 20 mEq daily, Xyzal 5 mg daily, metoprolol tartrate 12.5 mg daily, Lyrica 75 mg daily, calcium plus vitamin D one tablet daily, amylase and lipase one capsule 3 times a day, Protonix 40 mg daily, Singulair 10 mg daily, Tylenol p.r.n. basis, Xanax 1 mg at bedtime and also Xanax 0.5 mg daily, and Zofran p.r.n. basis. LABORATORY DATA: Shows hemoglobin is 9.4, hematocrit 28.4, WBC is 7.8, and platelet count is 122. Sodium 138, potassium 3.3, chloride 107, bicarbonate 23, BUN 5, creatinine 0.6, glucose 70, and calcium is 7.8. Microbiology; blood culture, urine culture, and stool is unremarkable. 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 Pulmonary point of view, doing okay. Continue bronchodilator. Keep head at 45 degrees. Gastric prophylaxis, pain management, on antibiotics, and being followed by gastrointestinal. We will follow with you. Linnea Stephen MD
[2017-07-26] MEDS: Dextrose 5%/0.9% NS 1,000 ML IV SCH ×3 (04:33→14:47)
[2017-07-26] MEDS: Insulin Reg-LOW-Coverage SC SCH ×4 (07:37→21:40)
[2017-07-26 08:08] LABS: HEMATOCRIT 28.2 % (36.0-48.0); MEAN CELL VOLUME 80.3 fl (80.0-105.0); MEAN CORPUSCULAR HEMOGLOBIN 26.5 pg (25.0-35.0); MEAN PLATELET VOLUME 9.1 fl (7.0-11.0); RED CELL DISTRIBUTION WIDTH 17.7 % (11.5-14.5); WHITE BLOOD COUNT 8.9 10^3/ul (4.5-11.0)
[2017-07-26 08:33] LABS: BLOOD UREA NITROGEN 6 mg/dL (7-21); CALCIUM 7.8 mg/dL (8.4-10.5); CARBON DIOXIDE 24 mmol/L (21-33); CHLORIDE 109 mmol/L (98-107); GFR AFRICAN-AMERICAN > 60; GLUCOSE,RANDOM 144 mg/dL (70-110); POTASSIUM 3.6 mmol/L (3.6-5.0); SODIUM 139 mmol/L (132-148)
[2017-07-26] MEDS: Pantoprazole 40 mg EC Tab PO SCH (09:16)
[2017-07-26] MEDS: Potassium Chloride 20 mEq ER Tab PO SCH (09:16)
[2017-07-26] MEDS: Calcium-Vit D 250 mg-125 Units Tab UD PO SCH (09:16)
[2017-07-26] MEDS: Amylase/Lipase/Protease 5,000 U ECC PO SCH ×3 (09:16→17:49)
--- NOTE | 2017-07-26 11:36 | CP.PCM.PN ---
<Mayur,Kovil V - Last Filed: 07/26/17 19:49> Objective - Vital Signs/Intake and Output Vital Signs (last 24 hours): Temp Pulse Resp BP Pulse Ox 98.2 F 97 H 19 116/93 H 100 07/26/17 16:00 07/26/17 16:00 07/26/17 16:00 07/26/17 16:00 07/26/17 16:00 Intake and Output: 07/26/17 07/27/17 18:59 06:59 Intake Total 1100 Balance 1100 - Medications Medications: Current Medications Acetaminophen (Tylenol 325mg Tab) 650 mg PO TID PRN PRN Reason: Pain, Mild (1-3) Last Admin: 07/22/17 10:20 Dose: 650 mg Alprazolam (Xanax) 0.5 mg PO DAILY [facility] PRN Reason: Protocol Last Admin: 07/26/17 09:16 Dose: 0.5 mg Alprazolam (Xanax) 1 mg PO HS [facility] PRN Reason: Protocol Last Admin: 07/25/17 21:31 Dose: 1 mg Amylase (Pancrease 61665 U-5000 U-39991 U) 15,000 u PO TID [facility] Last Admin: 07/26/17 17:49 Dose: 15,000 u Calcium/Vitamin D (Oscal-D 250 Mg-125 Units Tab) 1 tab PO DAILY [facility] Last Admin: 07/26/17 09:16 Dose: 1 tab Hydromorphone HCl (Dilaudid) 1 mg IVP Q4H PRN PRN Reason: Pain, severe (8-10) Last Admin: 07/26/17 16:13 Dose: 1 mg Dextrose/Sodium Chloride (Dextrose 5%/0.9% Ns 1000 Ml) 1,000 mls @ 100 mls/hr IV .Q10H [facility] Last Admin: 07/26/17 14:47 Dose: Not Given Insulin Human Regular (Humulin R Low) 0 units SC ACHS [facility] PRN Reason: Protocol Last Admin: 07/26/17 16:56 Dose: Not Given Metoprolol Tartrate (Lopressor) 12.5 mg PO DAILY [facility] Last Admin: 07/26/17 09:16 Dose: 12.5 mg Metronidazole (Flagyl) 500 mg PO Q8 [facility] PRN Reason: Protocol Last Admin: 07/26/17 13:41 Dose: 500 mg Montelukast Sodium (Singulair) 10 mg PO DAILY [facility] Last Admin: 07/26/17 09:16 Dose: 10 mg Non-Formulary Medication (Levocetirizine Dihydrochloride [Xyzal]) 5 mg PO DAILY [facility] Last Admin: 07/26/17 09:18 Dose: Not Given Ondansetron HCl (Zofran Inj) 4 mg IVP Q4H PRN PRN Reason: Nausea/Vomiting Last Admin: 07/26/17 08:42 Dose: 4 mg Pantoprazole Sodium (Protonix Ec Tab) 40 mg PO DAILY [facility] Last Admin: 07/26/17 09:16 Dose: 40 mg Potassium Chloride (K-Dur 20 Meq Er Tab) 20 meq PO DAILY [facility] Last Admin: 07/26/17 09:16 Dose: 20 meq Pregabalin (Lyrica) 75 mg PO DAILY [facility] Last Admin: 07/26/17 09:16 Dose: 75 mg - Labs Labs: 07/26/17 08:00 07/26/17 08:00 PT 11.2 Seconds (9.9-11.8) 07/18/17 17:05 INR 1.04 (0.93-1.08) 07/18/17 17:05 APTT 37.3 Seconds (23.7-30.8) H 07/18/17 17:05 Attending/Attestation - Attestation I have personally seen and examined this patient.: Yes I have fully participated in the care of the patient.: Yes I have reviewed all pertinent clinical information, including history, physical exam and plan: Yes Notes (Text): This is an addendum to GI progress report dictated by Amelia Wright APN.The patient was seen and examined earlier. Medical records, lab studies, imagings were reviewed. Last 24 hours events reviewed. Agreed with the above treatment plan as outlined in Amelia Wright NP's notes the with the addition of the following on examination abdomen soft . Mild tenderness on deep palpation in the epigastric area Overall feels better loose stools more formed Pancreatic enzyme supplement dose has been increased to 15,000 units by mouth 3 times a day with meals Patient is on day #6 Flagyl complete 10 days course Metastatic pancreatic cancer oncology follow-up Chronic hep C Follow-up LFT 07/26/17 19:50 <Amelia Wright J - Last Filed: 07/27/17 12:03> Subjective - Date & Time of Evaluation Date of Evaluation: 07/26/17 Time of Evaluation: 10:10 - Subjective Subjective: S&E at bedside, chart reviewed, diarrhea improved, stool becoming formed, no bleeding. Pancrease was increased with good results. Appetite better, no acute overnight events. Objective - Vital Signs/Intake and Output Vital Signs (last 24 hours): Temp Pulse Resp BP Pulse Ox 98.1 F 99 H 20 138/89 100 07/26/17 08:11 07/26/17 08:11 07/26/17 08:11 07/26/17 09:16 07/26/17 08:11 Intake and Output: 07/26/17 07/26/17 06:59 18:59 Intake Total 1680 Balance 1680 - Medications Medications: Current Medications Acetaminophen (Tylenol 325mg Tab) 650 mg PO TID PRN PRN Reason: Pain, Mild (1-3) Last Admin: 07/22/17 10:20 Dose: 650 mg Alprazolam (Xanax) 0.5 mg PO DAILY [facility] PRN Reason: Protocol Last Admin: 07/26/17 09:16 Dose: 0.5 mg Alprazolam (Xanax) 1 mg PO HS [facility] PRN Reason: Protocol Last Admin: 07/25/17 21:31 Dose: 1 mg Amylase (Pancrease 16780 U-5000 U-16097 U) 15,000 u PO TID [facility] Last Admin: 07/26/17 09:16 Dose: 15,000 u Calcium/Vitamin D (Oscal-D 250 Mg-125 Units Tab) 1 tab PO DAILY [facility] Last Admin: 07/26/17 09:16 Dose: 1 tab Hydromorphone HCl (Dilaudid) 1 mg IVP Q4H PRN PRN Reason: Pain, severe (8-10) Last Admin: 07/26/17 08:37 Dose: 1 mg Dextrose/Sodium Chloride (Dextrose 5%/0.9% Ns 1000 Ml) 1,000 mls @ 100 mls/hr IV .Q10H [facility] Last Admin: 07/26/17 11:24 Dose: Not Given Insulin Human Regular (Humulin R Low) 0 units SC ACHS [facility] PRN Reason: Protocol Last Admin: 07/26/17 11:25 Dose: Not Given Metoprolol Tartrate (Lopressor) 12.5 mg PO DAILY [facility] Last Admin: 07/26/17 09:16 Dose: 12.5 mg Metronidazole (Flagyl) 500 mg PO Q8 [facility] PRN Reason: Protocol Last Admin: 07/26/17 05:22 Dose: 500 mg Montelukast Sodium (Singulair) 10 mg PO DAILY [facility] Last Admin: 07/26/17 09:16 Dose: 10 mg Non-Formulary Medication (Levocetirizine Dihydrochloride [Xyzal]) 5 mg PO DAILY [facility] Last Admin: 07/26/17 09:18 Dose: Not Given Ondansetron HCl (Zofran Inj) 4 mg IVP Q4H PRN PRN Reason: Nausea/Vomiting Last Admin: 07/26/17 08:42 Dose: 4 mg Pantoprazole Sodium (Protonix Ec Tab) 40 mg PO DAILY [facility] Last Admin: 07/26/17 09:16 Dose: 40 mg Potassium Chloride (K-Dur 20 Meq Er Tab) 20 meq PO DAILY [facility] Last Admin: 07/26/17 09:16 Dose: 20 meq Pregabalin (Lyrica) 75 mg PO DAILY [facility] Last Admin: 07/26/17 09:16 Dose: 75 mg - Labs Labs: 07/26/17 08:00 07/26/17 08:00 PT 11.2 Seconds (9.9-11.8) 07/18/17 17:05 INR 1.04 (0.93-1.08) 07/18/17 17:05 APTT 37.3 Seconds (23.7-30.8) H 07/18/17 17:05 - Constitutional Appears: No Acute Distress - Head Exam Head Exam: NORMOCEPHALIC - Eye Exam Eye Exam: Normal appearance. absent: Scleral icterus - ENT Exam ENT Exam: Mucous Membranes Moist - Neck Exam Neck Exam: Normal Inspection - Respiratory Exam Respiratory Exam: NORMAL BREATHING PATTERN. absent: Respiratory Distress - Cardiovascular Exam Cardiovascular Exam: +S1, +S2 - GI/Abdominal Exam GI & Abdominal Exam: Soft, Tenderness (improved), Normal Bowel Sounds. absent: Guarding, Rebound - Extremities Exam Extremities Exam: Normal Capillary Refill. absent: Calf Tenderness, Pedal Edema - Neurological Exam Neurological Exam: Alert, Awake, Oriented x3 - Skin Skin Exam: Dry, Warm Assessment and Plan - Assessment and Plan (Free Text) Assessment: Assessment: Improving Abdominal pain Pancreatic cancer with metastasis Resolving Diarrhea, stool for C. difficile negative, could also be pancreatic insufficiency Colitis, small bowel and descending and sigmoid wall thickening Hypokalemia History of diabetes mellitus History of biliary stents Pancytopenia Hepatitis C Elevated LFT, slowly improving COPD Fibromyalgia Plan: continue low fat moderate carbohydrate soft diet Continue PPI Trend LFT Continue pancreatic enzymes continue Flagyl for total 10day course, on day #6 DVT prophylaxis Zofran when necessary On the Dilaudid for pain Monitor electrolytes,replace potassium as necessary Seen and discussed with Dr. Merchant.
[2017-07-27] MEDS: HYDROmorphone 1 mg/ml ISec IVP PRN ×5 (01:47→18:34)
--- NOTE | 2017-07-27 02:41 | PN ---
DATE: 07/26/2017 PULMONARY PROGRESS NOTE REFERRING PHYSICIAN: Dr. Ferrara. SUBJECTIVE: She is lying in the bed. No headache. No rhinitis. Not much cough, short of breath with exertion, still has epigastric pain, still has a watery stool. No leg pain. No leg swelling. OBJECTIVE: GENERAL: In no acute distress. VITAL SIGNS: Temperature is 98, heart rate is 97, respiratory rate is 18, blood pressure is 116/93, and pulse ox is 99% on room air. HEENT: Moist mucous membranes, and crowded airway. Mallampati score is IV. NECK: Supple. No JVD. LUNGS: Has a fair airflow with few rhonchi. HEART: S1 and S2. ABDOMEN: Soft and nontender, has epigastric pain. EXTREMITIES: No edema. NEUROLOGIC: Awake and alert. Follows simple commands. MEDICATIONS: She is on Dilaudid 1 mg q. 4 hours p.r.n., Flagyl 500 mg q.8 hours, insulin coverage, potassium 20 mEq daily, metoprolol tartrate 12.5 mg daily, Lovenox 40 mg daily, calcium plus vitamin D daily, amylase/pancreas 3 times a day, Protonix 40 mg daily, Tylenol p.r.n., Xanax p.r.n. basis, and Zofran p.r.n. basis. LABORATORY DATA: Shows hemoglobin 9.3, hematocrit 28.2, WBC 8.9, and platelet is 168. Sodium 139, potassium 3.6, chloride 109, bicarbonate 24, BUN 6, creatinine 0.5, glucose 144, calcium 7.8. Microbiology, blood culture, urine culture, and stool are unremarkable. IMPRESSION AND PLAN: Metastatic adenocarcinoma involving the head of the pancreas and ductal system, requiring stent, also involvement of the liver and lungs, having diarrhea, probably secondary to pancreatic insufficiency, also has a chronic lung disease, sleep apnea syndrome, hypertension, diabetes, and chronic pain syndrome secondary to metastatic disease. Continue pain medication, antianxiety medication, being followed by Gastroenterology. Bronchodilator, sleep apnea precaution, careful with sedation. Presently on pancreas replacement therapy. Thank you, and we will follow with you. Linnea Stephen MD
--- NOTE | 2017-07-27 05:33 | PN ---
SUBJECTIVE: The patient is 66-year-old female. The patient was examined at the bedside. [id number], the patient's power of divorce attorney, was at the bedside who feels parul is getting better. She is still having abdominal pain. No headache, no dizziness, no chest pain, no palpitation, no shortness of breath, no coughing. PHYSICAL EXAMINATION: VITAL SIGNS: Temperature 98.2, pulse 97, blood pressure 115/93, respiratory rate 19. HEENT: Head is normocephalic and atraumatic. Eyes: PERRLA. Extraocular muscles intact. Conjunctivae clear. Nose is patent. Mucus membranes moist. NECK: Supple. No carotid bruits, JVD or thyromegaly. CHEST: Bilaterally symmetrical. HEART: S1 and S2 positive. LUNGS: Clear to auscultation. ABDOMEN: Soft. Bowel sounds positive. No organomegaly. EXTREMITIES: No edema. No cyanosis. NEUROLOGIC: The patient is awake and alert. Moving all 4 extremities. No focal deficit. MEDICATIONS: Dextrose, Dilaudid, Flagyl, insulin, K-dur, Xyzal, Lopressor, Lyrica, calcium, Amylase, Protonix, Singulair, Tylenol, Xanax, Zofran. LABORATORY DATA: White blood cells 8.9, hemoglobin 9.3, hematocrit 28.2, platelets of 158. Sodium 139, potassium 3.6, BUN 6, creatinine 0.5, glucose 210, 158, and 132, random glucose 144, calcium 7.8. ASSESSMENT AND PLAN: The patient is a [id number] lady with history of leukocytosis, improved; anemia; uncontrolled diabetes mellitus; metastatic adenocarcinoma involving the head of the pancreas; metastasis to the liver, lungs, and ductal system obstruction requiring stenting; obstructive sleep apnea syndrome; chronic obstructive pulmonary disease. Seen by Adriana Cisneros, and she had discussion done with Dr. Merchant. Diarrhea is improving a little bit. Improving abdominal pain, C. difficile toxin colitis is negative. Could also be pancreatic insufficiency; colitis of small bowel and ascending and sigmoid wall thickening; hypokalemia, replaced; pancytopenia; hepatitis C; elevated liver function test, improving, we will repeat liver function test; fibromyalgia. Continue low-fat, moderate-carbohydrate soft diet, PPI pending liver function test, pancreatic enzymes. Continue monitoring. Continue Flagyl. Today is day 6 of the time. DVT prophylaxis. Continue Dilaudid for pain, monitor his electrolytes. We will follow up. Georgina Ferrara MD
[2017-07-27 07:00] LABS: ALB/GLOB RATIO 0.7 (1.1-1.8); ALKALINE PHOSPHATASE 113 U/L (38-126); ALT/SGPT 51 U/L (7-56); AST/SGOT 31 U/L (14-36); BILIRUBIN,DIRECT 0.4 mg/dL (0.0-0.4); BILIRUBIN,TOTAL 0.5 mg/dL (0.2-1.3); BLOOD UREA NITROGEN 5 mg/dL (7-21); CALCIUM 8.2 mg/dL (8.4-10.5); CARBON DIOXIDE 25 mmol/L (21-33); CHLORIDE 105 mmol/L (95-110); GFR AFRICAN-AMERICAN > 60; GLUCOSE,RANDOM 142 mg/dL (70-110); POTASSIUM 3.9 mmol/L (3.6-5.0); SODIUM 139 mmol/L (132-148); TOTAL PROTEIN 5.7 g/dL (5.8-8.3)
[2017-07-27] MEDS: Amylase/Lipase/Protease 5,000 U ECC PO SCH ×4 (10:02→18:35)
[2017-07-27] MEDS: Potassium Chloride 20 mEq ER Tab PO SCH (10:03)
[2017-07-27] MEDS: Calcium-Vit D 250 mg-125 Units Tab UD PO SCH (10:03)
[2017-07-27] MEDS: Pantoprazole 40 mg EC Tab PO SCH (10:03)
[2017-07-27] MEDS: Enoxaparin 40 mg Syringe SC SCH (10:03)
[2017-07-27] MEDS: Insulin Reg-LOW-Coverage SC SCH ×4 (10:11→21:29)
--- NOTE | 2017-07-27 12:05 | CP.PCM.PN ---
<Amelia Wright - Last Filed: 07/27/17 12:03> Subjective - Date & Time of Evaluation Date of Evaluation: 07/27/17 Time of Evaluation: 09:40 - Subjective Subjective: S&E at bedside, chart reviewed. No BM last night or this am. Eating better, no N /V. Abdominal pain present , gets analgesia prn. No acute overnight events reported. Objective - Vital Signs/Intake and Output Vital Signs (last 24 hours): Temp Pulse Resp BP Pulse Ox 98.4 F 97 H 20 140/101 H 99 07/27/17 08:50 07/27/17 10:03 07/27/17 08:50 07/27/17 10:03 07/27/17 08:50 Intake and Output: 07/27/17 07/27/17 06:59 18:59 Intake Total 300 Output Total 600 Balance -300 - Medications Medications: Current Medications Acetaminophen (Tylenol 325mg Tab) 650 mg PO TID PRN PRN Reason: Pain, Mild (1-3) Last Admin: 07/22/17 10:20 Dose: 650 mg Alprazolam (Xanax) 0.5 mg PO DAILY [facility] PRN Reason: Protocol Last Admin: 07/27/17 10:03 Dose: 0.5 mg Alprazolam (Xanax) 1 mg PO HS [facility] PRN Reason: Protocol Last Admin: 07/26/17 21:44 Dose: 1 mg Amylase (Pancrease 39562 U-5000 U-64023 U) 10,000 u PO TID [facility] Calcium/Vitamin D (Oscal-D 250 Mg-125 Units Tab) 1 tab PO DAILY [facility] Last Admin: 07/27/17 10:03 Dose: 1 tab Enoxaparin Sodium (Lovenox) 40 mg SC DAILY [facility] PRN Reason: Protocol Last Admin: 07/27/17 10:03 Dose: 40 mg Hydromorphone HCl (Dilaudid) 1 mg IVP Q4H PRN PRN Reason: Pain, severe (8-10) Last Admin: 07/27/17 10:04 Dose: 1 mg Insulin Human Regular (Humulin R Low) 0 units SC ACHS [facility] PRN Reason: Protocol Last Admin: 07/27/17 10:11 Dose: 1 units Metoprolol Tartrate (Lopressor) 12.5 mg PO DAILY [facility] Last Admin: 07/27/17 10:03 Dose: 12.5 mg Ondansetron HCl (Zofran Inj) 4 mg IVP Q4H PRN PRN Reason: Nausea/Vomiting Last Admin: 07/26/17 08:42 Dose: 4 mg Pantoprazole Sodium (Protonix Ec Tab) 40 mg PO DAILY [facility] Last Admin: 07/27/17 10:03 Dose: 40 mg Potassium Chloride (K-Dur 20 Meq Er Tab) 20 meq PO DAILY [facility] Last Admin: 07/27/17 10:03 Dose: 20 meq - Labs Labs: 07/26/17 08:00 07/27/17 06:27 PT 11.2 Seconds (9.9-11.8) 07/18/17 17:05 INR 1.04 (0.93-1.08) 07/18/17 17:05 APTT 37.3 Seconds (23.7-30.8) H 07/18/17 17:05 - Constitutional Appears: No Acute Distress - Head Exam Head Exam: NORMOCEPHALIC - Eye Exam Eye Exam: Normal appearance. absent: Scleral icterus - ENT Exam ENT Exam: Mucous Membranes Moist - Neck Exam Neck Exam: Normal Inspection - Respiratory Exam Respiratory Exam: Clear to Ausculation Bilateral, NORMAL BREATHING PATTERN. absent: Respiratory Distress - Cardiovascular Exam Cardiovascular Exam: +S1, +S2 - GI/Abdominal Exam GI & Abdominal Exam: Soft, Tenderness, Normal Bowel Sounds. absent: Guarding, Organomegaly, Rebound - Extremities Exam Extremities Exam: Normal Capillary Refill. absent: Calf Tenderness, Pedal Edema - Neurological Exam Neurological Exam: Alert, Awake, Oriented x3 Assessment and Plan - Assessment and Plan (Free Text) Assessment: Assessment: Improving Abdominal pain Pancreatic cancer with metastasis Resolved Diarrhea, stool for C. difficile negative, could also be pancreatic insufficiency Colitis, small bowel and descending and sigmoid wall thickening Hypokalemia History of diabetes mellitus History of biliary stents Pancytopenia Hepatitis C Elevated LFT, slowly improving COPD Fibromyalgia Plan: continue low fat moderate carbohydrate soft diet Continue PPI Trend LFT decrease pancreatic dose form 58634P to 99965R DC Flagyl DVT prophylaxis Zofran when necessary On the Dilaudid for pain Patient is improving, tolerating oral intake, continue w/ pancrease. Seen and discussed with Dr. Merchant. <Thang Merchant V - Last Filed: 07/27/17 23:50> Objective - Vital Signs/Intake and Output Vital Signs (last 24 hours): Temp Pulse Resp BP Pulse Ox 98.4 F 91 H 19 135/83 99 07/27/17 16:00 07/27/17 16:00 07/27/17 16:00 07/27/17 16:00 07/27/17 16:00 Intake and Output: 07/27/17 07/28/17 18:59 06:59 Intake Total 780 300 Balance 780 300 - Medications Medications: Current Medications Acetaminophen (Tylenol 325mg Tab) 650 mg PO TID PRN PRN Reason: Pain, Mild (1-3) Last Admin: 07/22/17 10:20 Dose: 650 mg Alprazolam (Xanax) 0.5 mg PO DAILY [facility] PRN Reason: Protocol Last Admin: 07/27/17 10:03 Dose: 0.5 mg Alprazolam (Xanax) 1 mg PO HS [facility] PRN Reason: Protocol Last Admin: 07/27/17 21:02 Dose: 1 mg Amylase (Pancrease 60083 U-5000 U-47704 U) 10,000 u PO TID [facility] Last Admin: 07/27/17 18:35 Dose: 10,000 u Calcium/Vitamin D (Oscal-D 250 Mg-125 Units Tab) 1 tab PO DAILY [facility] Last Admin: 07/27/17 10:03 Dose: 1 tab Enoxaparin Sodium (Lovenox) 40 mg SC DAILY [facility] PRN Reason: Protocol Last Admin: 07/27/17 10:03 Dose: 40 mg Hydromorphone HCl (Dilaudid) 1 mg IVP Q4H PRN PRN Reason: Pain, severe (8-10) Last Admin: 07/27/17 18:34 Dose: 1 mg Insulin Human Regular (Humulin R Low) 0 units SC ACHS [facility] PRN Reason: Protocol Last Admin: 07/27/17 21:29 Dose: Not Given Metoprolol Tartrate (Lopressor) 12.5 mg PO DAILY [facility] Last Admin: 07/27/17 10:03 Dose: 12.5 mg Ondansetron HCl (Zofran Inj) 4 mg IVP Q4H PRN PRN Reason: Nausea/Vomiting Last Admin: 07/26/17 08:42 Dose: 4 mg Pantoprazole Sodium (Protonix Ec Tab) 40 mg PO DAILY [facility] Last Admin: 07/27/17 10:03 Dose: 40 mg Potassium Chloride (K-Dur 20 Meq Er Tab) 20 meq PO DAILY [facility] Last Admin: 07/27/17 10:03 Dose: 20 meq - Labs Labs: 07/26/17 08:00 07/27/17 06:27 PT 11.2 Seconds (9.9-11.8) 07/18/17 17:05 INR 1.04 (0.93-1.08) 07/18/17 17:05 APTT 37.3 Seconds (23.7-30.8) H 07/18/17 17:05 Attending/Attestation - Attestation I have personally seen and examined this patient.: Yes I have fully participated in the care of the patient.: Yes I have reviewed all pertinent clinical information, including history, physical exam and plan: Yes Notes (Text): 07/27/17 23:50 p
[2017-07-27] MEDS ORDERED: DiphenhydrAMINE 50 mg/ml Inj IVP ONE (22:00)
--- NOTE | 2017-07-28 00:20 | PN ---
SUBJECTIVE: The patient is a 66-year-old female. The patient was seen and examined on the bedside, looking comfortable. As per the patient, the stool is getting little bit solidified, but cannot sleep at night, wants some sleeping pill. She is already on Dilaudid and Xanax. Otherwise, no nausea or vomiting. No chest pain. No palpitation. No headache. No dizziness. No swelling of the leg. No fever. No chills. PHYSICAL EXAMINATION: VITAL SIGNS: Temperature 98.4, pulse 91, blood pressure 135/83, and respiratory rate 19. HEENT: Head: Normocephalic and atraumatic. Eyes: PERRLA. Extraocular muscles intact. Conjunctivae clear. Nose; Patent. Mucous membranes are moist. NECK: Supple. No carotid bruit. No JVD or thyromegaly. CHEST: Bilaterally symmetrical. HEART: S1 and S2 positive. LUNGS: Clear to auscultation. ABDOMEN: Soft. Bowel sounds present. No organomegaly. EXTREMITIES: No edema. No cyanosis. NEUROLOGIC: The patient is awake and alert. Moving all 4 extremities. No focal deficits. MEDICATIONS: Benadryl 1 dose given for 2 days. Dilaudid, insulin, potassium, Lopressor, Robitussin, calcium, vitamin D, amylase/Pancrease, pantoprazole, Tylenol, Xanax, Zofran. LABORATORY DATA: White blood cell 8.9, hemoglobin 9.3, hematocrit 28.2, and platelets 168. Sodium 139, potassium 3.9, BUN 5, and creatinine 0.5. Glucose 173. Calcium 8.2. ASSESSMENT AND PLAN: The patient is a 66 years old lady with anemia, hyperglycemia, hypocalcemia, complaining of insomnia. I gave 1 dose of Benadryl; otherwise getting the Xanax and Dilaudid. Seen by GI, Dr. Merchant and nurse practitioner, Kiana. Improving abdominal pain, pancreatic cancer with metastasis to the liver and lungs; getting resolved diarrhea; Clostridium difficile toxin colitis, who looks like pancreatic insufficiency, after being on Pancrease is improving; colitis of small bowel, descending and sigmoid colon wall thickening; electrolyte imbalance, getting better; history of biliary stents; pancytopenia; hepatitis C; elevated liver function tests, slowly improving; chronic obstructive pulmonary disease; fibromyalgia. The patient is getting low fat, moderate carbohydrate soft diet. Continue PPI. Keep checking liver function tests to see the trend. Discontinue Flagyl by GI. GI decreased the pancreatic dose from 15,000 to 10,000 and Zofran as p.r.n. We will try to get TCU for the patient because still she is not able to do her ADL, getting physical therapy; chronic obstructive pulmonary disease; obstructive sleep apnea syndrome; history of heavy smoking and ethanol; history of chronic pain syndrome secondary to metastatic disease, and anxiety. Continue bronchodilators. Gastrointestinal and deep vein thrombosis prophylaxis. Repeat labs. Georgina Ferrara MD
[2017-07-28] MEDS: HYDROmorphone 1 mg/ml ISec IVP PRN ×4 (01:11→15:52)
--- NOTE | 2017-07-28 01:54 | PN ---
PULMONARY PROGRESS NOTE DATE: 07/27/2017 REFERRING PHYSICIAN: Dr. Ferrara. SUBJECTIVE: The patient is sitting side of the bed, son is at bedside, getting ready for dinner. No headache, no rhinitis, still have abdominal pain, still have a loose stool. No leg pain or leg swelling. OBJECTIVE: GENERAL: In no acute distress. VITAL SIGNS: Temperature 98, heart rate is 91, respiratory rate is 20, blood pressure 135/83, and pulse ox 99% on room air. HEENT: Moist mucous membranes. Crowded airway. Mallampati score is 4. NECK: Supple. No JVD. LUNGS: Has a fair airflow with few rhonchi. HEART: S1 and S2. ABDOMEN: Positive bowel sounds. Positive epigastric tenderness. EXTREMITIES: No edema. NEUROLOGIC: Awake and alert. Follows simple commands. MEDICATIONS: She is on Dilaudid 1 mg q. 4 hours p.r.n., insulin coverage, potassium 20 mEq daily, metoprolol tartrate 25 mg daily, Lovenox 40 mg daily, vitamin D and calcium one tablet daily, pancreas enzyme 10,000 three times a day, Protonix 40 mg daily, Tylenol p.r.n., Xanax 1 mg at bedtime and Xanax 0.5 mg p.o. daily, and Zofran on a p.r.n. basis. LABORATORY DATA: Reviewed and noted, sodium 139, potassium 3.9, chloride 105, bicarbonate 25, BUN 5, creatinine 0.5, glucose 142, and calcium 8.2. AST 31, ALT 51, alkaline phosphatase is 113, and albumin is 2.3. 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 Pancreatic enzyme is added. Continue pain management. Sleep apnea precautions, bronchodilator, gastric prophylaxis, SCD to lower extremities. We will order labs for the morning. Thank you, and we will follow with you. Linnea Stephen MD
[2017-07-28] MEDS: Insulin Reg-LOW-Coverage SC SCH ×3 (08:03→17:32)
[2017-07-28 08:07] LABS: HEMATOCRIT 29.4 % (36.0-48.0); MEAN CELL VOLUME 80.3 fl (80.0-105.0); MEAN CORPUSCULAR HEMOGLOBIN 26.5 pg (25.0-35.0); MEAN PLATELET VOLUME 9.1 fl (7.0-11.0); RED CELL DISTRIBUTION WIDTH 19.3 % (11.5-14.5); WHITE BLOOD COUNT 12.9 10^3/ul (4.5-11.0)
[2017-07-28 08:24] LABS: ALB/GLOB RATIO 0.7 (1.1-1.8); ALKALINE PHOSPHATASE 98 U/L (38-126); ALT/SGPT 45 U/L (7-56); AST/SGOT 26 U/L (14-36); BILIRUBIN,TOTAL 0.4 mg/dL (0.2-1.3); BLOOD UREA NITROGEN 7 mg/dL (7-21); CALCIUM 7.7 mg/dL (8.4-10.5); CARBON DIOXIDE 25 mmol/L (21-33); CHLORIDE 107 mmol/L (98-107); GFR AFRICAN-AMERICAN > 60; GLUCOSE,RANDOM 126 mg/dL (70-110); POTASSIUM 3.7 mmol/L (3.6-5.0); SODIUM 139 mmol/L (132-148); TOTAL PROTEIN 5.4 g/dL (5.8-8.3)
[2017-07-28 08:32] VITALS: O2SAT 98
[2017-07-28] MEDS: Enoxaparin 40 mg Syringe SC SCH (09:51)
[2017-07-28] MEDS: Potassium Chloride 20 mEq ER Tab PO SCH (09:51)
[2017-07-28] MEDS: Calcium-Vit D 250 mg-125 Units Tab UD PO SCH (09:51)
[2017-07-28] MEDS: Amylase/Lipase/Protease 5,000 U ECC PO SCH ×3 (09:52→17:31)
[2017-07-28] MEDS: Pantoprazole 40 mg EC Tab PO SCH (09:52)
--- NOTE | 2017-07-28 13:11 | CP.PCM.PN ---
Subjective - Date & Time of Evaluation Date of Evaluation: 07/28/17 Time of Evaluation: 10:20 - Subjective Subjective: Seen and examined at the bedside earlier today, chart reviewed. Patient reports tolerating about 50-60% of her breakfast. She is having formed stool. No reports of bleeding although still complains of abdominal discomfort. Objective - Vital Signs/Intake and Output Vital Signs (last 24 hours): Temp Pulse Resp BP Pulse Ox 98.4 F 87 20 137/90 98 07/28/17 06:00 07/28/17 09:52 07/28/17 06:00 07/28/17 09:52 07/28/17 06:00 Intake and Output: 07/28/17 07/28/17 06:59 18:59 Intake Total 300 420 Balance 300 420 - Medications Medications: Current Medications Acetaminophen (Tylenol 325mg Tab) 650 mg PO TID PRN PRN Reason: Pain, Mild (1-3) Last Admin: 07/22/17 10:20 Dose: 650 mg Alprazolam (Xanax) 0.5 mg PO DAILY [facility] PRN Reason: Protocol Last Admin: 07/28/17 09:51 Dose: 0.5 mg Alprazolam (Xanax) 1 mg PO HS [facility] PRN Reason: Protocol Last Admin: 07/27/17 21:02 Dose: 1 mg Amylase (Pancrease 98870 U-5000 U-37598 U) 10,000 u PO TID [facility] Last Admin: 07/28/17 09:52 Dose: 10,000 u Calcium/Vitamin D (Oscal-D 250 Mg-125 Units Tab) 1 tab PO DAILY [facility] Last Admin: 07/28/17 09:51 Dose: 1 tab Enoxaparin Sodium (Lovenox) 40 mg SC DAILY [facility] PRN Reason: Protocol Last Admin: 07/28/17 09:51 Dose: 40 mg Hydromorphone HCl (Dilaudid) 1 mg IVP Q4H PRN PRN Reason: Pain, severe (8-10) Last Admin: 07/28/17 12:04 Dose: 1 mg Insulin Human Regular (Humulin R Low) 0 units SC ACHS [facility] PRN Reason: Protocol Last Admin: 07/28/17 12:46 Dose: 3 units Metoprolol Tartrate (Lopressor) 12.5 mg PO DAILY [facility] Last Admin: 07/28/17 09:52 Dose: 12.5 mg Ondansetron HCl (Zofran Inj) 4 mg IVP Q4H PRN PRN Reason: Nausea/Vomiting Last Admin: 07/26/17 08:42 Dose: 4 mg Pantoprazole Sodium (Protonix Ec Tab) 40 mg PO DAILY [facility] Last Admin: 07/28/17 09:52 Dose: 40 mg Potassium Chloride (K-Dur 20 Meq Er Tab) 20 meq PO DAILY [facility] Last Admin: 07/28/17 09:51 Dose: 20 meq - Labs Labs: 07/28/17 07:50 07/28/17 07:50 PT 11.2 Seconds (9.9-11.8) 07/18/17 17:05 INR 1.04 (0.93-1.08) 07/18/17 17:05 APTT 37.3 Seconds (23.7-30.8) H 07/18/17 17:05 - Constitutional Appears: No Acute Distress - Head Exam Head Exam: NORMOCEPHALIC - Eye Exam Eye Exam: Normal appearance. absent: Scleral icterus - ENT Exam ENT Exam: Mucous Membranes Moist - Neck Exam Neck Exam: Normal Inspection - Respiratory Exam Respiratory Exam: Clear to Ausculation Bilateral, NORMAL BREATHING PATTERN. absent: Respiratory Distress - Cardiovascular Exam Cardiovascular Exam: +S1, +S2 - GI/Abdominal Exam GI & Abdominal Exam: Soft, Tenderness, Normal Bowel Sounds. absent: Guarding, Organomegaly, Rebound - Extremities Exam Extremities Exam: Normal Capillary Refill. absent: Calf Tenderness, Pedal Edema - Neurological Exam Neurological Exam: Alert, Awake, Oriented x3 - Skin Skin Exam: Dry, Warm Assessment and Plan - Assessment and Plan (Free Text) Assessment: Assessment: Abdominal pain Pancreatic cancer with metastasis Resolved Diarrhea, stool for C. difficile negative, could also be pancreatic insufficiency Colitis, small bowel and descending and sigmoid wall thickening Hypokalemia History of diabetes mellitus History of biliary stents Pancytopenia Hepatitis C Elevated LFT, slowly improving COPD Fibromyalgia Plan: continue low fat moderate carbohydrate soft diet Continue PPI Trend LFT continue pancreatic dose [id number] DVT prophylaxis Zofran when necessary On the Dilaudid for pain Patient is improving, tolerating oral intake, continue w/ pancrease.patient should be discharged on pancreas 10,000units 3 times a day, before meals. Spoke to nursing staff contact pain management for reevaluation, patient states current analgesia not controlling abdominal pain. Seen and discussed with Dr. Merchant.
--- NOTE | 2017-07-28 16:09 | PN ---
DATE: 07/28/2017 PULMONARY PROGRESS NOTE REFERRING PHYSICIAN: Dr. Ferrara. SUBJECTIVE: The patient is sitting at the side of the bed having lunch, night has been unremarkable, feeling better today, still having loose bowel movement. No shortness of breath. No chest pain. No leg pain or leg swelling. OBJECTIVE: GENERAL: No acute distress. VITAL SIGNS: Temperature 98, heart rate is 87, respiratory rate 20, blood pressure 137/90, pulse ox 98% on room air. HEENT: Moist mucous membrane. Crowded airway. NECK: Supple. No JVD. LUNGS: Fair airflow with few rhonchi. HEART: S1 and S2. ABDOMEN: Positive epigastric tenderness. EXTREMITIES: There is no edema. NEUROLOGIC: Awake, follow simple commands. MEDICATIONS: The patient is on Dilaudid 1 mg q. 4 hours p.r.n., insulin coverage, potassium 20 mEq daily, metoprolol tartrate 12.5 mg daily, Lovenox 40 mg daily, calcium plus vitamin D 1 tab daily, amylase and lipase 10,000 units p.o. 3 times a day, Protonix 40 mg daily, Tylenol p.r.n., Xanax 1 mg at bedtime and also Xanax 0.5 mg daily, Zofran p.r.n. basis. LABORATORY DATA: Shows hemoglobin is 9.7, hematocrit 29.4, WBC is 12.9, and platelet is 297. Sodium 139, potassium 3.73, chloride 107, bicarbonate 25, BUN 7, creatinine 0.6, glucose 126, calcium is 7.7, AST 26, ALT 45, alk phos 98, albumin is 2.9. Microbiology: Blood culture, urine culture, and stool is unremarkable. IMPRESSION AND PLAN: Metastatic adenocarcinoma involving the head of the pancreas, ductal system requiring stent, liver and lungs, chronic obstructive lung disease, diabetes, hypertension, sleep apnea syndrome, being followed by GI, on Pancreas enzymes, pain medication, bronchodilator, gastric prophylaxis, deep venous thrombosis prophylaxis. Need oncology followup, and we will follow with you. Linnea Stephen MD
[2017-07-28 18:10] VITALS: PULSE 104; TEMP 99.9
[2017-07-28 18:19] VITALS: BP 136/94; RESP 22
== END 2017-07-28 20:17 | disposition home or self-care (01) | DRG 391 ==
LOC: ED 16:48 → ERH 19:22 → 2RNO 20:53 → 3RNO 07-22 14:54
PROVIDERS: ADMIT Internal Medicine; ATTEND Internal Medicine
DX: K52.9 Noninfective gastroenteritis and colitis, unspecified (principal); K83.1 Obstruction of bile duct; C25.0 Malignant neoplasm of head of pancreas; C78.00 Secondary malignant neoplasm of unspecified lung; C78.7 Secondary malignant neoplasm of liver and intrahepatic bile duct; D61.818 Other pancytopenia; J44.9 Chronic obstructive pulmonary disease, unspecified; E11.65 Type 2 diabetes mellitus with hyperglycemia; E83.51 Hypocalcemia; I95.9 Hypotension, unspecified; K21.9 Gastro-esophageal reflux disease without esophagitis; E87.6 Hypokalemia; M79.7 Fibromyalgia; I10 Essential (primary) hypertension; G47.33 Obstructive sleep apnea (adult) (pediatric); B18.2 Chronic viral hepatitis C; G89.4 Chronic pain syndrome; G89.3 Neoplasm related pain (acute) (chronic); K86.89 Other specified diseases of pancreas; F41.9 Anxiety disorder, unspecified; Z86.73 Personal history of transient ischemic attack (TIA), and cerebral infarction without residual deficits; Z79.84 Long term (current) use of oral hypoglycemic drugs; Z87.891 Personal history of nicotine dependence

== ENCOUNTER 2017-07-30 05:48 | Inpatient (IN) | payer MEDICARE, OTHER ==
[2017-07-30 05:49] VITALS: BMI 35.7
[2017-07-30] MEDS ORDERED: Sodium Chloride 0.9% 1,000 ML IV STA (06:27)
[2017-07-30] MEDS ORDERED: Oxycodone/Acetaminophen 5/325 mg Tab PO STA (06:29)
[2017-07-30 06:48] LABS: BASO # 0.03 K/mm3 (0.0-2.0); BASO % 0.1 % (0.0-3.0); EOS % 0.1 % (1.5-5.0); GRAN # 19.97 (1.4-6.5); GRAN % 85.2 % (50.0-68.0); HEMATOCRIT 29.1 % (36.0-48.0); LYMPH # 1.6 (1.2-3.4); LYMPH % 6.7 % (22.0-35.0); MEAN CELL VOLUME 80.8 fl (80.0-105.0); MEAN CORPUSCULAR HEMOGLOBIN 26.7 pg (25.0-35.0); MEAN PLATELET VOLUME 9.1 fl (7.0-11.0); MONO # 1.9 (0.1-0.6); MONO % 7.9 % (1.0-6.0); RED CELL DISTRIBUTION WIDTH 20.2 % (11.5-14.5); WHITE BLOOD COUNT 23.5 10^3/ul (4.5-11.0)
[2017-07-30 06:54] LABS: VENOUS BLOOD GAS BASE EXCESS -5.8 mmol/L (0.0-2.0); VENOUS BLOOD PH 7.33 (7.32-7.43)
[2017-07-30 07:01] LABS: ALB/GLOB RATIO 0.7 (1.1-1.8); BILIRUBIN,DIRECT 0.4 mg/dL (0.0-0.4); BILIRUBIN,TOTAL 0.5 mg/dL (0.2-1.3); CALCIUM 7.3 mg/dL (8.4-10.5); MAGNESIUM 1.5 mg/dL (1.7-2.2); PHOSPHOROUS 5.6 mg/dL (2.5-4.5); POTASSIUM 3.9 mmol/L (3.6-5.0); TOTAL PROTEIN 5.6 g/dL (5.8-8.3)
[2017-07-30 07:03] LABS: INR 1.26 (0.93-1.08); PARTIAL THROMBOPLASTIN TIME 29.2 Seconds (23.7-30.8)
[2017-07-30 07:11] LABS: TROPONIN I 0.06 ng/mL
[2017-07-30] MEDS ORDERED: Vancomycin 1gm in NS 250ml 1 GM/250 ML BAG IVPB STA (07:11)
[2017-07-30] MEDS ORDERED: Piperacillin/Tazobact 3.375 gm 100 ML IVPB STA (07:12)
--- NOTE | 2017-07-30 07:28 | ED PDOC ---
Arrival/HPI - General Chief Complaint: Trauma Time Seen by Provider: 07/30/17 06:21 Historian: Patient - History of Present Illness Narrative History of Present Illness (Text): 07/30/17 07:23 66 y.o. female whose PMHx includes pancreatic cancer, HTN, COPD, Hepatitic C, and TIA who reports that she got up earlier this morning and recalls sitting on the toilet for a bowel movement and then getting up; the next thing she remembers is waking up on the floor with left hip pain. She does not think she hit her head. No headache or cp; she has chronic sob and abd pain. No n/v or fever or urinary symptoms. Last chemo was 07/19/17. Past Medical History - Infectious Disease Hx of Infectious Diseases: None - Tetanus Immunization Tetanus Immunization: Unknown - Cardiac Hx Cardiac Disorders: Yes Hx Hypertension: Yes - Pulmonary Hx Respiratory Disorders: Yes Hx Emphysema: Yes - Neurological Hx Neurological Disorder: Yes Hx Transient Ischemic Attacks (TIA): Yes - HEENT Hx HEENT Disorder: No - Renal Hx Renal Disorder: No - Endocrine/Metabolic Hx Diabetes Mellitus Type 1: Yes - Hematological/Oncological Hx Blood Disorders: Yes Hx Cancer: Yes Hx Chemotherapy: Yes (last dose 07/15/2017) Hx Hepatitis C: Yes - Integumentary Hx Dermatological Disorder: No - Musculoskeletal/Rheumatological Hx Musculoskeletal Disorders: Yes Hx Degenerative Joint Disease: Yes Hx Falls: Yes - Gastrointestinal Hx Gastrointestinal Disorders: Yes (COLON SURGERY,APPENDECTOMY,COLON RESECTION, LIVER BX) Hx Gastroesophageal Reflux: Yes - Genitourinary/Gynecological Hx Genitourinary Disorders: Yes Hx Hematuria: Yes - Psychiatric Hx Psychophysiologic Disorder: Yes Hx Anxiety: Yes Hx Depression: Yes Hx Substance Use: No - Past Surgical History Past Surgical History: No Previous - Surgical History Hx Appendectomy: Yes Other/Comment: colon resection, liver bx. R chest port - Anesthesia Hx Anesthesia Reactions: No Hx Malignant Hyperthermia: No - Suicidal Assessment Feels Threatened In Home Enviroment: No Family/Social History Family/Social History: Unknown Family HX Smoking Status: Former Smoker Hx Alcohol Use: No Hx Substance Use: No Hx Substance Use Treatment: No Allergies/Home Meds Allergies/Adverse Reactions: Allergies No Known Allergies Allergy (Verified 07/18/17 16:58) Home Medications: Home Meds Medication Instructions Recorded Confirmed ALPRAZolam [Xanax] 1 mg PO HS 04/21/17 07/30/17 Alprazolam [Xanax] 0.5 mg PO DAILY 04/21/17 07/30/17 Furosemide [Lasix] 40 mg PO DAILY 04/21/17 07/30/17 Glipizide [Glipizide ER] 10 mg PO DAILY 04/21/17 07/30/17 Levocetirizine Dihydrochloride 5 mg PO DAILY 04/21/17 07/30/17 [Xyzal] Lisinopril [Zestril] 10 mg PO DAILY 04/21/17 07/30/17 Metoprolol Tartrate [Lopressor] 25 mg PO DAILY 04/21/17 07/30/17 Montelukast [Singulair] 10 mg PO DAILY 04/21/17 07/30/17 Spironolactone [Aldactone] 25 mg PO DAILY 04/21/17 07/30/17 Morphine Sulfate [Morphine Sulfate 15 mg PO BID 07/18/17 07/30/17 ER] Ondansetron HCl [Zofran] 8 mg PO Q6 PRN 07/18/17 07/30/17 Oxycodone HCl [Oxycontin] 10 mg PO Q4 PRN 07/18/17 07/30/17 Pregabalin [Lyrica] 75 mg PO DAILY 07/18/17 07/30/17 Review of Systems - Physician Review All systems were reviewed & negative as marked: Yes - Review of Systems Constitutional: absent: Fevers Eyes: Normal ENT: Normal Respiratory: SOB (chronic, no change) Cardiovascular: Syncope. absent: Chest Pain Gastrointestinal: Abdominal Pain (chronic). absent: Nausea, Vomiting Genitourinary Female: Normal Musculoskeletal: Other (L hip pain) Skin: Normal Neurological: absent: Headache, Dizziness Endocrine: Normal Hemo/Lymphatic: absent: Easy Bleeding Psychiatric: Normal Physical Exam Vital Signs Temp Pulse Resp BP Pulse Ox 07/30/17 06:22 62/36 L 07/30/17 05:57 97.6 F 134 H 20 100 Temperature: Afebrile Blood Pressure: Hypotensive (Initial BP of 56/32) Pulse: Tachycardic Respiratory Rate: Normal Appearance: Positive for: Non-Toxic Pain Distress: None Mental Status: Positive for: Alert and Oriented X 3 - Systems Exam Head: Present: Atraumatic, Normocephalic Pupils: Present: PERRL Conjunctiva: Present: Normal Mouth: Present: Moist Mucous Membranes Pharnyx: Present: Normal. No: ERYTHEMA, EXUDATE Neck: Present: Normal Range of Motion Respiratory/Chest: Present: Decreased Breath Sounds. No: Respiratory Distress, Accessory Muscle Use Cardiovascular: Present: Normal S1, S2, Tachycardic. No: Murmurs Abdomen: Present: Tenderness (diffuse), Normal Bowel Sounds. No: Distention, Peritoneal Signs Back: Present: Normal Inspection Upper Extremity: Present: Normal Inspection. No: Cyanosis, Edema Lower Extremity: Present: Other (L hip is shortened and slightly externally rotated). No: Edema Neurological: Present: GCS=15, CN II-XII Intact, Speech Normal Skin: Present: Warm, Dry, Normal Color. No: Rashes Psychiatric: Present: Alert, Oriented x 3, Normal Insight, Normal Concentration Medical Decision Making ED Course and Treatment: 07/30/17 07:30 Patient with noted history presenting with L hip pain s/p syncope. Patient hypotensive on presentation. Differential: Sepsis vs Dehydration vs electolyte abnormality 07/30/17 07:32 EKG: sinus tachycardia @ 129; nonspecific ST changes; normal intervals; normal axis. Patient with initial hypotension; started on IVF with SBP up to 88; labs preliminarily with marked leukocytosis and elevated lactic acid; code sepsis called. IVF continued, per sepsis protocol, and broad spectrum abx given. Remainder of labs and imaging to be followed by Dr. Medina, to whom the case was endorsed. - Lab Interpretations Lab Results: 07/30/17 06:42 Lab Results 07/30/17 06:49: Blood Type Pending, Antibody Screen Pending, BBK History Checked No verified bt 07/30/17 06:42: pO2 57 H, VBG pH 7.33, VBG pCO2 37.0 L, VBG HCO3 19.5 L, VBG Total CO2 20.6 L, VBG O2 Sat (Calc) 88.2 H, VBG Base Excess -5.8 L, VBG Potassium 4.0, Sodium 136.0, Chloride 101.0, Glucose 243 H, Lactate 5.5 H*, FiO2 21.0, Venous Blood Potassium 4.0 07/30/17 06:42: PT 13.6 H, INR 1.26 H, APTT 29.2 07/30/17 06:42: WBC 23.5 H D, RBC 3.60, Hgb 9.6 L, Hct 29.1 L, MCV 80.8, MCH 26.7, MCHC 33.0, RDW 20.2 H, Plt Count 355, MPV 9.1, Gran % 85.2 H, Lymph % ( Auto) 6.7 L, [place] % (Auto) 7.9 H, Eos % (Auto) 0.1 L, Baso % (Auto) 0.1, Gran # 19.97 H, Lymph # 1.6, [place] # 1.9 H, Eos # 0.0, Baso # 0.03, ESR Pending - RAD Interpretation Radiology Orders: 07/30/17 06:28 CHEST PORTABLE [RAD] Stat 07/30/17 06:30 Hip Left [HIP MIN 4V W/ PELVIS LT] [RAD] Stat - Medication Orders Current Medication Orders: Sodium Chloride (Sodium Chloride 0.9%) 1,000 mls @ 999 mls/hr IV .Q1H1M STA Stop: 07/30/17 07:27 Last Admin: 07/30/17 06:41 Dose: 999 mls/hr eMAR Start Stop Document 07/30/17 06:41 JOL (Rec: 07/30/17 06:43 JOJames [id number]) Intravenous Solution Start Date 07/30/17 Start Time 06:43 End Date 07/30/17 End time 07:43 Total Infusion Time 60 Sodium Chloride (Sodium Chloride 0.9%) 1,800 mls @ 1,800 mls/hr IV .Q1H STA Stop: 07/30/17 08:10 Vancomycin HCl (Vancomycin 1gm) 1 gm in 250 mls @ 133.333 mls/hr IVPB STAT STA PRN Reason: Protocol Stop: 07/30/17 09:03 Discontinued Medications Oxycodone/Acetaminophen (Percocet 5/325 Mg Tab) 2 tab PO STAT STA Stop: 07/30/17 06:30 Last Admin: 07/30/17 06:43 Dose: 2 tab MAR Pain Assessment Document 07/30/17 06:43 JOL (Rec: 07/30/17 06:43 JOL [id number]) Pain Reassessment Is this a pain reassessment? No Sleep Is patient sleeping during reassessment? No Presence of Pain Presence of Pain Yes Pain Scale Used Pain Scale Used Numeric Location Pain Location Body Site Hip Description Description Constant Intensity of Pain at present 7 Disposition/Present on Arrival - Present on Arrival Any Indicators Present on Arrival: Yes History of DVT/PE: No History of Uncontrolled Diabetes: Yes Urinary Catheter: No History of Decub. Ulcer: No History Surgical Site Infection Following: None - Disposition Have Diagnosis and Disposition been Completed?: No Diagnosis: Sepsis Disposition: HOSPITALIZED Disposition Time: 07:00 Patient Plan: Admission Condition: CRITICAL Discharge Instructions (ExitCare): Sepsis (ED) Referrals: Georgina Ferrara MD [Primary Care Provider] - Follow up with primary
--- NOTE | 2017-07-30 07:41 | ED PDOC ---
Physical Exam Vital Signs Temp Pulse Resp BP Pulse Ox 07/30/17 08:44 120 H 18 106/96 H 95 07/30/17 08:28 97.9 F 119 H 20 100/68 97 07/30/17 07:25 121 H 18 83/58 L 98 07/30/17 07:02 134 H 20 88/63 L 100 07/30/17 06:28 109 H 18 116/77 99 07/30/17 06:22 62/36 L 07/30/17 05:57 97.6 F 134 H 20 100 Medical Decision Making ED Course and Treatment: 07/30/17 07:00 Patient signed out to me by Dr. Abdi. Pending labs and follow up on reevaluation and disposition. 07/30/17 08:00 Patient's Chest X-ray: NAD 07/30/17 09:[address]: Creator : Leydi Lindo MD COMPARISON: 06/11/2017. FINDINGS: HEMORRHAGE: No intracranial hemorrhage. BRAIN: There is no mass, mass effect or abnormal extra-axial fluid collection. There is no territorial infarction. VENTRICLES: There is mild age-related global parenchymal volume loss and proportionate enlargement of the ventricles and cortical sulci. CALVARIUM: The skull base and calvarium are normal. PARANASAL SINUSES: Predominantly clear. MASTOID AIR CELLS: Predominantly clear. OTHER FINDINGS: None. IMPRESSION: No acute intracranial abnormality. Mild age-related global parenchymal volume loss. 07/30/17 10:53 Patient's BP improved and remained stable throughout the ED stay. Patient stable for telemetry. Treated empirically with antibiotics for Sepsis. CT Head negative. Discussed case with Dr. Ferrara who will admit patient on her service. - Lab Interpretations Lab Results: 07/30/17 06:42 07/30/17 06:42 Lab Results 07/30/17 08:05: Urine Color Yellow, Urine Appearance Clear, Urine pH 6.0, Ur Specific [place] <= 1.005, Urine Protein Trace H, Urine Glucose (UA) Negative, Urine Ketones Negative, Urine Blood Moderate H, Urine Nitrate Negative, Urine Bilirubin Negative, Urine Urobilinogen 0.2, Ur Leukocyte Esterase Small H, Urine RBC 0 - 2, Urine WBC 2 - 5, Ur Epithelial Cells 4 - 5, Urine Bacteria Small 07/30/17 06:49: Blood Type A POSITIVE, Antibody Screen Negative, BBK History Checked No verified bt 07/30/17 06:42: Sodium 136, Chloride 102, Potassium 3.9, Carbon Dioxide 20 L, Anion Gap 18, BUN 12, Creatinine 1.5 H, Est GFR ( Amer) 42, Est GFR (Non- Af Amer) 35, Random Glucose 232 H, Calcium 7.3 L, Phosphorus 5.6 H, Magnesium 1.5 L, Total Bilirubin 0.5, Direct Bilirubin 0.4, AST 39 H D, ALT 30, Alkaline Phosphatase 99, Lactate Dehydrogenase 672, Total Creatine Kinase 475 H, CK-MB ( CK-2) 2.6, CK-MB (CK-2) % Cancelled, Troponin I 0.06 D, NT-Pro-B Natriuret Pep 854 H, Total Protein 5.6 L, Albumin 2.3 L, Globulin 3.3, Albumin/Globulin Ratio 0.7 L, Lipase 291 07/30/17 06:42: pO2 57 H, VBG pH 7.33, VBG pCO2 37.0 L, VBG HCO3 19.5 L, VBG Total CO2 20.6 L, VBG O2 Sat (Calc) 88.2 H, VBG Base Excess -5.8 L, VBG Potassium 4.0, Sodium 136.0, Chloride 101.0, Glucose 243 H, Lactate 5.5 H*, FiO2 21.0, Venous Blood Potassium 4.0 07/30/17 06:42: PT 13.6 H, INR 1.26 H, APTT 29.2 07/30/17 06:42: WBC 23.5 H D, RBC 3.60, Hgb 9.6 L, Hct 29.1 L, MCV 80.8, MCH 26.7, MCHC 33.0, RDW 20.2 H, Plt Count 355, MPV 9.1, Gran % 85.2 H, Lymph % ( Auto) 6.7 L, [place] % (Auto) 7.9 H, Eos % (Auto) 0.1 L, Baso % (Auto) 0.1, Gran # 19.97 H, Lymph # 1.6, [place] # 1.9 H, Eos # 0.0, Baso # 0.03, ESR 70 H I have reviewed the lab results: Yes - RAD Interpretation Radiology Orders: 07/30/17 06:28 CHEST PORTABLE [RAD] Stat 07/30/17 06:30 Hip Left [HIP MIN 4V W/ PELVIS LT] [RAD] Stat 07/30/17 07:36 Brain [HEAD W/O CONTRAST] [CT] Stat Manager Machine: ED Physician, Radiologist - Medication Orders Current Medication Orders: Sodium Chloride (Sodium Chloride 0.9%) 1,000 mls @ 100 mls/hr IV .Q10H [facility] Last Admin: 07/30/17 10:23 Dose: 100 mls/hr eMAR Start Stop Document 07/30/17 10:23 [place] (Rec: 07/30/17 10:24 [id number] Intravenous Solution Start Date 07/30/17 Start Time 10:24 Discontinued Medications Sodium Chloride (Sodium Chloride 0.9%) 1,000 mls @ 999 mls/hr IV .Q1H1M STA Stop: 07/30/17 07:27 Last Admin: 07/30/17 06:41 Dose: 999 mls/hr eMAR Start Stop Document 07/30/17 06:41 JOL (Rec: 07/30/17 06:43 JOL [id number]) Intravenous Solution Start Date 07/30/17 Start Time 06:43 End Date 07/30/17 End time 07:43 Total Infusion Time 60 Sodium Chloride (Sodium Chloride 0.9%) 1,800 mls @ 1,800 mls/hr IV .Q1H STA Stop: 07/30/17 08:10 Last Admin: 07/30/17 07:35 Dose: 1,800 mls/hr eMAR Start Stop Document 07/30/17 07:35 [place] (Rec: 07/30/17 07:35 [id number] Intravenous Solution Start Date 07/30/17 Start Time 07:35 Vancomycin HCl (Vancomycin 1gm) 1 gm in 250 mls @ 133.333 mls/hr IVPB STAT STA PRN Reason: Protocol Stop: 07/30/17 09:03 Last Admin: 07/30/17 08:21 Dose: 133.333 mls/hr eMAR Start Stop Document 07/30/17 08:21 [place] (Rec: 07/30/17 08:23 [id number] Intravenous Solution Start Date 07/30/17 Start Time 08:22 End Date 07/30/17 End time 10:22 Total Infusion Time 120 Piperacillin Sod/Tazobactam Sod (Zosyn 3.375 In Ns 100ml) 100 mls @ 200 mls/hr IVPB STAT STA PRN Reason: Protocol Stop: 07/30/17 07:41 Last Admin: 07/30/17 07:35 Dose: 200 mls/hr eMAR Start Stop Document 07/30/17 07:35 [place] (Rec: 07/30/17 07:35 [id number] Intravenous Solution Start Date 07/30/17 Start Time 07:35 End Date 07/30/17 End time 08:05 Total Infusion Time 30 Morphine Sulfate (Morphine) 2 mg IVP STAT STA Stop: 07/30/17 10:22 Last Admin: 07/30/17 10:25 Dose: 2 mg MAR Pain Assessment Document 07/30/17 10:25 [place] (Rec: 07/30/17 10:27 [id number] Pain Reassessment Is this a pain reassessment? No Sleep Is patient sleeping during reassessment? No Presence of Pain Presence of Pain Yes Pain Scale Used Pain Scale Used Numeric Location Left, Right or Bilateral Left Pain Location Body Site Hip Description Description Intermittent Intensity of Pain at present 10 Acceptable Level of Pain 2 IVP Administration Document 07/30/17 10:25 [place] (Rec: 07/30/17 10:27 [id number]) Charges for Administration # of IVP Administrations 1 Oxycodone/Acetaminophen (Percocet 5/325 Mg Tab) 2 tab PO STAT STA Stop: 07/30/17 06:30 Last Admin: 07/30/17 06:43 Dose: 2 tab MAR Pain Assessment Document 07/30/17 06:43 JOL (Rec: 07/30/17 06:43 JOL [id number]) Pain Reassessment Is this a pain reassessment? No Sleep Is patient sleeping during reassessment? No Presence of Pain Presence of Pain Yes Pain Scale Used Pain Scale Used Numeric Location Pain Location Body Site Hip Description Description Constant Intensity of Pain at present 7 - Scribe Statement The provider has reviewed the documentation as recorded by the Aribdorothy Vernon Provider Scribe Attestation: All medical record entries made by the Scribe were at my direction and personally dictated by me. I have reviewed the chart and agree that the record accurately reflects my personal performance of the history, physical exam, medical decision making, and the department course for this patient. I have also personally directed, reviewed, and agree with the discharge instructions and disposition. Disposition/Present on Arrival - Present on Arrival Any Indicators Present on Arrival: Yes History of DVT/PE: No History of Uncontrolled Diabetes: Yes Urinary Catheter: No History of Decub. Ulcer: No History Surgical Site Infection Following: None - Disposition Have Diagnosis and Disposition been Completed?: Yes Diagnosis: Sepsis Disposition: HOSPITALIZED Disposition Time: 09:56 Patient Plan: Admission Patient Problems: Current Active Problems Problem Status Onset Sepsis Acute Condition: GUARDED
[2017-07-30 08:10] LABS: URINE BILIRUBIN NEGATIVE (NEGATIVE); URINE BLOOD MODERATE (NEGATIVE); URINE GLUCOSE (UA) NEGATIVE (NEGATIVE); URINE KETONE NEGATIVE (NEGATIVE); URINE LEUKOCYTE ESTERASE SMALL Leu/uL (NEGATIVE); URINE PROTEIN TRACE mg/dL (<30 mg/dL); URINE UROBILINOGEN 0.2 E.U./dL (<1 E.U./dL)
[2017-07-30 08:14] LABS: URINE APPEARANCE CLEAR (CLEAR); URINE COLOR YELLOW (YELLOW)
[2017-07-30 08:26] LABS: URINE RBC 0 - 2 /hpf (0-2)
[2017-07-30 08:27] LABS: URINE BACTERIA SMALL (NEG)
--- NOTE | 2017-07-30 08:39 | RAD ---
HISTORY: Sepsis Patient COMPARISON: No prior. FINDINGS: The right MediPort terminates at the cavoatrial junction. LUNGS: The lungs are well inflated. There are scattered pulmonary nodules in both lungs, the largest in the left mid lung measures 18 mm. No focal consolidation. PLEURA: No significant pleural effusion identified, no pneumothorax apparent. CARDIOVASCULAR: Normal. OSSEOUS STRUCTURES: No significant abnormalities. VISUALIZED UPPER ABDOMEN: Normal. OTHER FINDINGS: None. IMPRESSION: Pulmonary metastasis. No acute findings. The right MediPort terminates at the cavoatrial junction. There is a discrepancy with ER preliminary read. The finer report was tagged to PA review and ER discrepancy folders.
--- NOTE | 2017-07-30 09:49 | CT ---
PROCEDURE: CT HEAD WITHOUT CONTRAST. HISTORY: syncope COMPARISON: 06/11/2017. TECHNIQUE: Axial computed tomography images were obtained through the head/brain without intravenous contrast. Radiation dose: Total exam DLP = 734.01 mGy-cm. This CT exam was performed using one or more of the following dose reduction techniques: Automated exposure control, adjustment of the mA and/or kV according to patient size, and/or use of iterative reconstruction technique. FINDINGS: HEMORRHAGE: No intracranial hemorrhage. BRAIN: There is no mass, mass effect or abnormal extra-axial fluid collection. There is no territorial infarction. VENTRICLES: There is mild age-related global parenchymal volume loss and proportionate enlargement of the ventricles and cortical sulci. CALVARIUM: The skull base and calvarium are normal. PARANASAL SINUSES: Predominantly clear. MASTOID AIR CELLS: Predominantly clear. OTHER FINDINGS: None. IMPRESSION: No acute intracranial abnormality. Mild age-related global parenchymal volume loss.
[2017-07-30] MEDS ORDERED: Morphine 2 mg/ml ISec IVP STA (10:21)
[2017-07-30 10:22] LABS: VENOUS BLOOD GAS BASE EXCESS -3.8 mmol/L (0.0-2.0); VENOUS BLOOD PH 7.35 (7.32-7.43)
[2017-07-30] MEDS: Sodium Chloride 0.9% 1,000 ML IV SCH (10:23)
--- NOTE | 2017-07-30 10:44 | RAD ---
PROCEDURE: Left Hip X-ray Radiographs. HISTORY: L hip pain s/p fall COMPARISON: None. FINDINGS: BONES: The pelvic ring is intact. There is no acute displaced fracture or bone destruction. JOINTS: There is mild degenerative osteoarthrosis in the hip joints. SOFT TISSUES: Normal. OTHER FINDINGS: None. IMPRESSION: No acute fracture or dislocation.Please note occult fractures cannot be excluded on plain radiographs. If there is a persistent clinical concern, an MRI of the hip may be performed for further evaluation.
[2017-07-30] MEDS ORDERED: Piperacillin/Tazobact 3.375 gm 100 ML IVPB SCH (14:00)
--- NOTE | 2017-07-30 15:07 | PCM.SEPTIC ---
Sepsis Progress Note - Reassessment Type Date of Evaluation: 07/30/17 Time of Evaluation: 14:00 Reassessment Type: Non-invasive reassessment - Non Invasive Reassessment Were the most recent vital sign reviewed: Yes Vital Sign (Latest): Temp Pulse Resp BP Pulse Ox 97.5 F L 107 H 19 102/60 97 07/30/17 12:00 07/30/17 12:00 07/30/17 12:00 07/30/17 12:00 07/30/17 11:04 Cardiovascular: Yes: Regular Rate, Rhythm Respiratory: Yes: Decreased Breath Sounds Capillary Refill: Normal (Less than 2 sec) Skin: Warm
--- NOTE | 2017-07-30 15:48 | CP.PCM.CON ---
History of Present Illness - History of Present Illness History of Present Illness: 66 year old female with PMH of pancreatic cancer, HTN, history of Hepatitis C, history of TIA, COPD came in because of apparent fall while she was in the toilet. She sat on the toilet in the morning and the next thing she remembers is being on the floor. She denies having urinary or bowel incontinence, currently denies headache or dizziness, no chest pain, no SOB, no cough, no abdominal pain, no diarrhea, no dysuria. In the ED, she was noted to have leukocytosis and Infectious Diseases consult is requested to further evaluate and manage. Review of Systems - Review of Systems All systems: reviewed and no additional remarkable complaints except (as per HPI ) Past Patient History - Infectious Disease Hx of Infectious Diseases: None - Tetanus Immunizations Tetanus Immunization: Unknown - Past Medical History & Family History Past Medical History?: Yes - Past Social History Smoking Status: Former Smoker - CARDIAC Hx Cardiac Disorders: Yes Hx Hypertension: Yes - PULMONARY Hx Respiratory Disorders: Yes Hx Emphysema: Yes - NEUROLOGICAL Hx Neurological Disorder: Yes Hx Transient Ischemic Attacks (TIA): Yes - HEENT Hx HEENT Problems: No - RENAL Hx Chronic Kidney Disease: No - ENDOCRINE/METABOLIC Hx Diabetes Mellitus Type 1: Yes - HEMATOLOGICAL/ONCOLOGICAL Hx Blood Disorders: Yes Hx Cancer: Yes Hx Chemotherapy: Yes (last dose 07/15/2017) Hx Hepatitis C: Yes - INTEGUMENTARY Hx Dermatological Problems: No - MUSCULOSKELETAL/RHEUMATOLOGICAL Hx Musculoskeletal Disorders: Yes Hx Degenerative Joint Disease: Yes Hx Falls: Yes - GASTROINTESTINAL Hx Gastrointestinal Disorders: Yes (COLON SURGERY,APPENDECTOMY,COLON RESECTION, LIVER BX) Hx Gastroesophageal Reflux: Yes - GENITOURINARY/GYNECOLOGICAL Hx Genitourinary Disorders: Yes Hx Hematuria: Yes - PSYCHIATRIC Hx Psychophysiologic Disorder: Yes Hx Anxiety: Yes Hx Depression: Yes Hx Substance Use: No - SURGICAL HISTORY Hx Appendectomy: Yes Other/Comment: colon resection, liver bx. R chest port - ANESTHESIA Hx Anesthesia Reactions: No Hx Malignant Hyperthermia: No Meds Allergies/Adverse Reactions: Allergies Allergy/AdvReac Type Severity Reaction Status Date / Time No Known Allergies Allergy Verified 07/18/17 16:58 - Medications Medications: Current Medications Sodium Chloride (Sodium Chloride 0.9%) 1,000 mls @ 100 mls/hr IV .Q10H [place] Physical Exam - Constitutional Appears: Non-toxic, No Acute Distress - Head Exam Head Exam: NORMAL INSPECTION - ENT Exam ENT Exam: Mucous Membranes Moist - Neck Exam Neck exam: Negative for: Lymphadenopathy, Meningismus - Respiratory Exam Respiratory Exam: Decreased Breath Sounds - Cardiovascular Exam Cardiovascular Exam: +S1, +S2 - GI/Abdominal Exam GI & Abdominal Exam: Soft. absent: Tenderness Results - Vital Signs Recent Vital Signs: Last Vital Signs Temp 97.9 F 07/30/17 08:28 Pulse 120 H 07/30/17 08:44 Resp 18 07/30/17 08:44 BP 106/96 H 07/30/17 08:44 Pulse Ox 95 07/30/17 08:44 - Labs Result Diagrams: 07/30/17 06:42 07/30/17 06:42 Labs: Laboratory Results - last 24 hr 07/30/17 10:10 pO2 173 H VBG pH 7.35 VBG pCO2 39.0 L VBG HCO3 21.5 VBG Total CO2 22.7 VBG O2 Sat (Calc) 98.4 H VBG Base Excess -3.8 L VBG Potassium 3.3 L Sodium 138.0 Chloride 110.0 H Glucose 185 H Lactate 2.2 H FiO2 21.0 Venous Blood Potassium 3.3 L Assessment & Plan - Assessment and Plan (Free Text) Plan: Assessment Systemic Inflammatory Response Syndrome, R/O sepsis, so far no source identified , in this patient who apparently had a syncopal episode S/P mediport placement chronic renal failure pancreatic cancer HTN history of Hepatitis C history of TIA COPD Plan Gave a dose of IV Vancomycin and started zosyn pending blood cx, urine cx, PCT; reviewed CXR which shows pulmonary metastases if WBC count is persistently elevated, may need CT A/P (although currently does not have GI symptoms) will monitor clinically
--- NOTE | 2017-07-30 16:54 | CP.PCM.CON ---
<Darien Boggs - Last Filed: 07/30/17 19:05> History of Present Illness - History of Present Illness History of Present Illness: Neurology Consult Note for Dr. Gillis Service Consulted for: Syncope This is a 66 yo AA F with PMH of Pancreatic Ca currently on chemo, HTN, COPD, Hepatitis C, IDDM, and prior TIA who presented to [facility] [place] syncopal episode at home, down on ground for ~3 hours. As per patient, she was on the toilet, and after finishing a bowel movement, stood up to walk to the sink and wash her hands, took a couple steps, and then awoke on the floor with no recall of how she ended up on the floor. She reports that she awoke to her son calling out to her (came to her house when she wasn't answering her phone), and was unable to get up without assistance. She also admits to being incontinent of urine when coming too, but denies tongue bitting. Denies any similar episodes in the past. No recent dizziness with position changes, reports normal PO food and fluid intake. Denies chest pain, shortness of breath, acute changes in vision, nausea/emesis, diarrhea/constipation, dysuria/hematuria, diaphoresis, or focal weakness/paresthesia. Denies straining when moving her bowels prior to synopal episode, unsure of head trauma. All other ROS in 12-point system review negative. PMH: as above PSH: Colon resection, appendectomy, R chest port placement SHx: Admits former cigarette use (quit > 10 yrs prior), denies EtOH or illicits/ IVDA FHx: Denies PMD: Dr. Ferrara Review of Systems - Review of Systems All systems: reviewed and no additional remarkable complaints except (as per HPI ) Past Patient History - Infectious Disease Hx of Infectious Diseases: None - Tetanus Immunizations Tetanus Immunization: Unknown - Past Medical History & Family History Past Medical History?: Yes - Past Social History Smoking Status: Former Smoker - CARDIAC Hx Cardiac Disorders: Yes Hx Hypertension: Yes - PULMONARY Hx Respiratory Disorders: Yes Hx Emphysema: Yes - NEUROLOGICAL Hx Neurological Disorder: Yes Hx Transient Ischemic Attacks (TIA): Yes - HEENT Hx HEENT Problems: No - RENAL Hx Chronic Kidney Disease: No - ENDOCRINE/METABOLIC Hx Diabetes Mellitus Type 1: Yes - HEMATOLOGICAL/ONCOLOGICAL Hx Blood Disorders: Yes Hx Cancer: Yes Hx Chemotherapy: Yes (last dose 07/15/2017) Hx Hepatitis C: Yes - INTEGUMENTARY Hx Dermatological Problems: No - MUSCULOSKELETAL/RHEUMATOLOGICAL Hx Musculoskeletal Disorders: Yes Hx Degenerative Joint Disease: Yes Hx Falls: Yes - GASTROINTESTINAL Hx Gastrointestinal Disorders: Yes (COLON SURGERY,APPENDECTOMY,COLON RESECTION, LIVER BX) Hx Gastroesophageal Reflux: Yes - GENITOURINARY/GYNECOLOGICAL Hx Genitourinary Disorders: Yes Hx Hematuria: Yes - PSYCHIATRIC Hx Psychophysiologic Disorder: Yes Hx Anxiety: Yes Hx Depression: Yes Hx Substance Use: No - SURGICAL HISTORY Hx Appendectomy: Yes Other/Comment: colon resection, liver bx. R chest port - ANESTHESIA Hx Anesthesia Reactions: No Hx Malignant Hyperthermia: No Meds Allergies/Adverse Reactions: Allergies Allergy/AdvReac Type Severity Reaction Status Date / Time No Known Allergies Allergy Verified 07/18/17 16:58 - Medications Medications: Current Medications Acetaminophen (Tylenol 325mg Tab) 650 mg PO Q4H PRN PRN Reason: Fever >100.5 F Last Admin: 07/30/17 16:12 Dose: 650 mg Sodium Chloride (Sodium Chloride 0.9%) 1,000 mls @ 100 mls/hr IV .Q10H BRITTNEY Last Admin: 07/30/17 10:23 Dose: 100 mls/hr Piperacillin Sod/Tazobactam Sod (Zosyn 3.375 In Ns 100ml) 100 mls @ 200 mls/hr IVPB Q8 BRITTNEY PRN Reason: Protocol Stop: 08/06/17 14:01 Last Admin: 07/30/17 16:04 Dose: 200 mls/hr Ondansetron HCl (Zofran Inj) 4 mg IVP Q4H PRN PRN Reason: Nausea/Vomiting Last Admin: 07/30/17 16:12 Dose: 4 mg Physical Exam - Constitutional Appears: Well, Non-toxic, No Acute Distress - Head Exam Head Exam: ATRAUMATIC, NORMAL INSPECTION, NORMOCEPHALIC - Eye Exam Eye Exam: EOMI, Normal appearance, PERRL. absent: Conjunctival injection, Scleral icterus Pupil Exam: NORMAL ACCOMODATION, PERRL. absent: Fixed, Irregular, Unequal - ENT Exam ENT Exam: Mucous Membranes Moist. absent: Mucous Membranes Dry - Neck Exam Neck exam: Negative for: Lymphadenopathy, Thyromegaly - Respiratory Exam Respiratory Exam: Decreased Breath Sounds, Clear to Auscultation Bilateral, NORMAL BREATHING PATTERN. absent: Accessory Muscle Use, Chest Wall Tenderness, Rales, Rhonchi, Wheezes Additional comments: R-chest wall port in place, covered with bandaging - Cardiovascular Exam Cardiovascular Exam: REGULAR RHYTHM, RRR, +S1, +S2. absent: Bradycardia, Tachycardia, Irregular Rhythm, JVD, +S4 - GI/Abdominal Exam GI & Abdominal Exam: Normal Bowel Sounds, Soft. absent: Distended, Firm, Rigid , Tenderness - Extremities Exam Extremities exam: Positive for: normal inspection, pedal pulses present. Negative for: calf tenderness, joint swelling, pedal edema, tenderness - Neurological Exam Neurological exam: Alert, CN II-XII Intact, Oriented x3 - Psychiatric Exam Psychiatric exam: Normal Affect, Normal Mood - Skin Skin Exam: Dry, Intact, Normal Color, Warm Results - Vital Signs Recent Vital Signs: Last Vital Signs Temp 97.5 F L 07/30/17 12:00 Pulse 107 H 07/30/17 12:00 Resp 19 07/30/17 12:00 BP 102/60 07/30/17 12:00 Pulse Ox 97 07/30/17 11:04 - Labs Result Diagrams: 07/30/17 06:42 07/30/17 06:42 Labs: Laboratory Results - last 24 hr 07/30/17 07/30/17 10:10 10:56 pO2 173 H VBG pH 7.35 VBG pCO2 39.0 L VBG HCO3 21.5 VBG Total CO2 22.7 VBG O2 Sat (Calc) 98.4 H VBG Base Excess -3.8 L VBG Potassium 3.3 L Sodium 138.0 Chloride 110.0 H Glucose 185 H Lactate 2.2 H FiO2 21.0 POC Glucose (mg/dL) 188 H Venous Blood Potassium 3.3 L Assessment & Plan - Assessment and Plan (Free Text) Assessment: This is a 66 yo AA F with PMH of Pancreatic Ca currently on chemo, HTN, COPD, Hepatitis C, IDDM, and prior TIA who presented to [facility] after syncopal episode at home, down on ground for ~3 hours. Her syncopal episode is likely due to transient cerebral hypoperfusion 2/2 vasovagal episode (s/p bowel movement) vs orthostatic episode (due to low BPs). Due to reported loss of bladder control, will obtain an EEG to r/o seizure activity. Head CT negative for acute findings. Will also obtain Carotid duplex and orthostatics. If Duplex and EEG are normal, then nothing further indicated from Neurology standpoint. Plan: 1) Orthostatics 2) Carotid Duplex and EEG ordered, f/u 3) Gently hydrate, maintain SBP 120-140's, avoid aggressive or sudden drops in BP 4) Maintain Blood glucose 140-180 5) PT/OT Patient reviewed and discussed with attending, Dr. Gillis <Jake Gillis - Last Filed: 07/30/17 22:33> Meds - Medications Medications: Current Medications Acetaminophen (Tylenol 325mg Tab) 650 mg PO Q4H PRN PRN Reason: Fever >100.5 F Last Admin: 07/30/17 22:03 Dose: 650 mg Albuterol/Ipratropium (Duoneb 3 Mg/0.5 Mg (3 Ml) Ud) 3 ml IH [id number] BRITTNEY Alprazolam (Xanax) 0.5 mg PO DAILY BRITTNEY PRN Reason: Protocol Alprazolam (Xanax) 1 mg PO HS BRITTNEY PRN Reason: Protocol Amylase (Pancrease [id number] U) 10,000 u PO WM BRITTNEY Glipizide (Glucotrol Xl) 10 mg PO DAILY BRITTNEY Hydromorphone HCl (Dilaudid) 0.5 mg IVP Q4H PRN PRN Reason: Pain, Mild (1-3) Sodium Chloride (Sodium Chloride 0.9%) 1,000 mls @ 100 mls/hr IV .Q10H BRITTNEY Last Admin: 07/30/17 10:23 Dose: 100 mls/hr Meropenem 1g/NS 100mL IVPB (Meropenem 1g/Ns 100ml Ivpb) 1 gm in 100 mls @ 100 mls/hr IVPB Q12 BRITTNEY PRN Reason: Protocol Stop: 08/06/17 22:01 Last Admin: 07/30/17 22:03 Dose: 100 mls/hr Insulin Human Regular (Humulin R Low) 0 units SC ACHS BRITTNEY PRN Reason: Protocol Loratadine (Claritin) 10 mg PO DAILY BRITTNEY Montelukast Sodium (Singulair) 10 mg PO HS BRITTNEY Ondansetron HCl (Zofran Inj) 4 mg IVP Q4H PRN PRN Reason: Nausea/Vomiting Last Admin: 07/30/17 16:12 Dose: 4 mg Ondansetron HCl (Zofran Tab) 8 mg PO Q6 PRN PRN Reason: Nausea/Vomiting Pantoprazole Sodium (Protonix Ec Tab) 40 mg PO 0600 BRITTNEY Pregabalin (Lyrica) 75 mg PO DAILY BRITTNEY Results - Vital Signs Recent Vital Signs: Last Vital Signs Temp 99 F 07/30/17 18:18 Pulse 135 H 07/30/17 18:18 Resp 18 07/30/17 18:18 BP 87/60 L 07/30/17 18:18 Pulse Ox 100 07/30/17 18:18 - Labs Result Diagrams: 07/30/17 06:42 07/30/17 06:42 Labs: Laboratory Results - last 24 hr 07/30/17 07/30/17 10:10 10:56 pO2 173 H VBG pH 7.35 VBG pCO2 39.0 L VBG HCO3 21.5 VBG Total CO2 22.7 VBG O2 Sat (Calc) 98.4 H VBG Base Excess -3.8 L VBG Potassium 3.3 L Sodium 138.0 Chloride 110.0 H Glucose 185 H Lactate 2.2 H FiO2 21.0 POC Glucose (mg/dL) 188 H Venous Blood Potassium 3.3 L Attending/Attestation - Attestation I have personally seen and examined this patient.: Yes I have fully participated in the care of the patient.: Yes I have reviewed all pertinent clinical information: Yes
[2017-07-30] MEDS: Meropenem 1g/NS 100mL IVPB 1 GM/100 ML PIGGYBACK IVPB SCH (22:03)
[2017-07-30] MEDS: HYDROmorphone 0.5 mg/0.5 ml ISec IVP PRN (23:09)
--- NOTE | 2017-07-31 01:32 | CARD ---
APPROVED REPORT EKG Measurement Heart [id number] <Conclusion> Sinus tachycardia with premature atrial complexes Possible Left atrial enlargement Borderline ECG
[2017-07-31] MEDS: Albuterol-Ipratrop 3 mg / 0.5 (3 ml) UD IH SCH ×4 (02:35→19:32)
[2017-07-31] MEDS: HYDROmorphone 0.5 mg/0.5 ml ISec IVP PRN ×2 (04:15→11:30)
[2017-07-31] MEDS: Pantoprazole 40 mg EC Tab PO SCH (06:02)
[2017-07-31] MEDS: Sodium Chloride 0.9% 1,000 ML IV SCH ×2 (06:04→06:05)
[2017-07-31] MEDS: Insulin Reg-LOW-Coverage SC SCH ×4 (10:08→22:30)
[2017-07-31] MEDS: Meropenem 1g/NS 100mL IVPB 1 GM/100 ML PIGGYBACK IVPB SCH ×2 (10:09→21:29)
[2017-07-31] MEDS: Amylase/Lipase/Protease 5,000 U ECC PO SCH ×3 (10:13→18:31)
[2017-07-31] MEDS: GlipiZIDE 10 mg SR Tab PO SCH (10:13)
[2017-07-31] MEDS ORDERED: Iohexol 240 (50 ml) ONE (11:40)
--- NOTE | 2017-07-31 13:12 | PN ---
DATE: 07/31/2017 SUBJECTIVE: The patient is in bed, in no acute distress, nontoxic. PHYSICAL EXAMINATION: VITAL SIGNS: Temperature is 98, blood pressure is 115/80, respiratory rate of 20, heart rate of 95. HEENT: Unremarkable. NECK: Supple. LUNGS: Decreased breath sounds. HEART: Normal S1 and S2. ABDOMEN: Soft. LABORATORY DATA: Reveals a white count of 23,500, hemoglobin of 9 and platelets of 355. BUN of 12, creatinine of 1.5. Procalcitonin is 0.8. Urinalysis is noted. Microbiology reveals a gram-negative josh in blood. MEDICATIONS: The patient is currently on meropenem. ASSESSMENT AND PLAN: A 66-year-old female with sepsis with gram-negative josh bacteremia, chronic renal failure, pancreatic cancer, hypertension, history of hepatitis C, history of transient ischemic attack and chronic obstructive lung disease. Currently on meropenem. The source of gram-negative josh is not clear. Urine versus gastrointestinal versus Mediport. We will check on identification of the gram-negative josh. Dopplers of the Mediport to rule out a deep venous thrombosis that has been ordered by Dr. Berry. CAT scan of the abdomen and pelvis also ordered, awaiting. We will follow with you. Luc Lynn MD
--- NOTE | 2017-07-31 13:56 | US ---
PROCEDURE: Bilateral carotid artery duplex ultrasound HISTORY: Carotid stenosis sink PHYSICIAN(S): Loi Zamudio MD. TECHNIQUE: Duplex sonography and color-flow Doppler were used to evaluate the carotid bifurcations and limited segments of the vertebral arteries bilaterally. FINDINGS: There is mild smooth heterogeneous plaque noted at the carotid bifurcations bilaterally. The peak systolic velocity in the proximal right internal carotid artery is 71 cm/sec. This corresponds to a 20 to 39% proximal right ICA stenosis. Normal systolic velocities are noted in the proximal right external carotid artery. There is antegrade flow in the right vertebral artery. The peak systolic velocity in the proximal left internal carotid artery is 60 cm/sec. This corresponds to a 20 to 39% proximal left ICA stenosis. Normal systolic velocities are noted in the proximal left external carotid artery. There is antegrade flow in the left vertebral artery. IMPRESSION: 1. Bilateral 20-39% proximal ICA stenoses. 2. Antegrade flow in both vertebral arteries.
--- NOTE | 2017-07-31 13:57 | US ---
PROCEDURE: Right upper extremity venous US CLINICAL HISTORY: Arm pain and swelling Evaluate for deep venous thrombosis. PHYSICIAN(S): Loi Zamudio M.D FINDINGS: A central catheter is present in the right internal jugular vein. There is pericatheter thrombus noted which is partially occlusive. The visualized right subclavian vein is patent. The visualized deep venous system of the proximal right upper extremity is patent. IMPRESSION: 1. Catheter-associated DVT in the right internal jugular vein. The patient would benefit from anticoagulation and a repeat ultrasound in 1-3 weeks.
--- NOTE | 2017-07-31 15:25 | CT ---
PROCEDURE: CT Abdomen and Pelvis with contrast HISTORY: rule out intra-abdominal infection COMPARISON: 07/18/2017. TECHNIQUE: CT scan of the abdomen and pelvis was performed without administration of intravenous contrast. Oral contrast was administered. Coronal and sagittal reformatted images were obtained. Radiation dose: Total exam DLP = 1149.70 mGy-cm. This CT exam was performed using one or more of the following dose reduction techniques: Automated exposure control, adjustment of the mA and/or kV according to patient size, and/or use of iterative reconstruction technique. FINDINGS: LOWER THORAX: There are scattered parenchymal nodules, the largest in the left lower lobe measures 15 mm. LIVER: Again seen are low-attenuation nodules in the liver consistent with metastatic deposits. There is redemonstration of pneumo be Elif in the central ducts and left hepatic lobe. GALLBLADDER AND BILE DUCTS: The gallbladder is contracted. There is mild pericholecystic fluid. There is stable appearance of a metallic biliary stent. PANCREAS: There is redemonstration of soft tissue mass in the head of the pancreas. The body and tail of the pancreas are grossly normal in appearance. SPLEEN: Normal in size. ADRENALS: No discrete nodule. KIDNEYS AND URETERS: Both kidneys are normal in size without hydronephrosis. There is a stable simple cyst in the left upper pole. VASCULATURE: Unremarkable. No aortic aneurysm. BOWEL: The small bowel loops are normal in cord liver. Status post partial right colectomy. There is left colonic diverticulosis without CT evidence for acute diverticulitis. There are multiple surgical clips in the right lower quadrant. PERITONEUM: No free fluid. No free air. LYMPH NODES: Again seen are gastrohepatic, peripancreatic and the retrocaval lymph nodes. There are also soft tissue nodules in the right lower quadrant. BLADDER: Unremarkable. REPRODUCTIVE: Unremarkable. BONES: No acute fracture. OTHER FINDINGS: None. IMPRESSION: No acute abdominal or pelvic abnormality. Redemonstration of mass in the head of the pancreas with arlet, hepatic and pulmonary metastasis. Soft tissue nodules in the right lower quadrant also compatible with mesenteric metastasis. Left colonic diverticulosis without CT evidence for acute diverticulitis.
--- NOTE | 2017-07-31 17:25 | PN ---
SUBJECTIVE: The patient is a 66-year-old female. The patient is seen and examined at the bedside, looking comfortable, still having diarrhea, last night went multiple times. No nausea or vomiting. No fever, no chills. No headaches, no dizziness. No chest pain. No palpitations. No hematuria. No hematochezia. Looks comfortable as compared to yesterday. PHYSICAL EXAMINATION: VITAL SIGNS: Temperature 98.7; pulse 95; blood pressure 115/80 which is orthostatic, right arm, lying down blood pressure 115/80, sitting blood pressure 112/86, standing blood pressure 125/78; respiratory rate is 20. HEENT: Head normocephalic, atraumatic. Eyes: PERRLA. Extraocular muscles intact. Conjunctiva clear. Nose patent. Mucous membrane moist. NECK: Supple. No carotid bruits, JVD or thyromegaly. HEART: S1 and S2 positive. LUNGS: Clear to auscultation. ABDOMEN: Soft. Bowel sounds positive. No organomegaly. EXTREMITIES: No edema, no cyanosis. NEUROLOGIC: The patient is awake, alert, moving all four extremities. No focal deficits. MEDICATIONS: Claritin, Dilaudid, DuoNeb, Glucotrol, insulin, Lyrica, meropenem, amylase, Protonix, Singulair, NS, Tylenol, Xanax, Zofran. LABORATORY DATA: White blood cells 23.5, hemoglobin 9.6, hematocrit 29.1, and platelets 355. Sodium 136; potassium 3.9; BUN 12; creatinine 1.5; glucose 188, 174; calcium 7.3, phosphorus 5.6. ASSESSMENT AND PLAN: The patient is a 66-year-old female with renal insufficiency, mild; diabetes mellitus, not controlled; hypocalcemia; hyperphosphatemia; hypermagnesemia; abnormal liver function tests; hypokalemia; leukocytosis; anemia; proteinuria; hematuria; urinary tract infection. Extremity and bilateral carotid Doppler ultrasound is done, but the results are pending. History of pancreatic carcinoma, getting chemotherapy; hypertension; chronic obstructive pulmonary disease; hepatitis C; insulin-dependent diabetes mellitus; prior history of transient ischemic attack. Came with syncopal attack at home. CAT scan of the head is done. Her syncopal attack episode is likely due to transient cerebral hypoperfusion, maybe vasovagal episode after bowel movement versus orthostatic episode due to low blood pressure, but we did orthostatic, it is not significant. Because of bladder control, now this is time to do EEG to rule out seizure activity. CAT scan of the head is negative for acute finding. Bilateral carotid Doppler and Doppler of the leg done, results are pending. Kindly give the patient hydration. Maintain blood pressure between 120 to 140. Avoid aggressive or sudden drop in blood pressure maintaining the glucose between 140 to 180. The patient has intractable diarrhea, put a consult with Dr. Merchant; he knows this patient very well from her previous admissions. Seen by Dr. Loi Berry. The patient has a gram-negative bacilli in the blood. We will get CAT scan of the abdomen and pelvis, other possible source of her mid port. We will change dosing to Merrem, and we will repeat blood cultures in 2 days. Gastrointestinal and deep venous thrombosis prophylaxis. Repeat labs. We will follow up. Georgina Ferrara MD
[2017-07-31] MEDS: Enoxaparin 100 mg Syringe SC SCH (21:28)
[2017-08-01] MEDS: Sodium Chloride 0.9% 1,000 ML IV SCH ×2 (01:30→23:05)
[2017-08-01] MEDS: Albuterol-Ipratrop 3 mg / 0.5 (3 ml) UD IH SCH ×4 (01:50→21:07)
[2017-08-01] MEDS: Pantoprazole 40 mg EC Tab PO SCH (06:35)
[2017-08-01] MEDS: Insulin Reg-LOW-Coverage SC SCH ×4 (07:45→22:00)
[2017-08-01] MEDS: Amylase/Lipase/Protease 5,000 U ECC PO SCH ×3 (08:04→17:12)
[2017-08-01] MEDS: Enoxaparin 100 mg Syringe SC SCH ×2 (08:04→20:25)
--- NOTE | 2017-08-01 09:35 | CON ---
DATE: 07/31/2017HISTORY OF PRESENT ILLNESS: This patient was seen and evaluated earlier, discussed with the nursing staff. This is a 66-year-old patient with past medical history of metastatic pancreatic cancer, status post stent placement, recently discharged from the hospital following treatment for enteritis and diarrhea, recently , was readmitted with h/o fall and history of mental status. The patient had loss of consciousness, could not remember the events. The patient was brought in, the patient was found to have white cell count of 23,000. This patient was recently in the hospital, discharged following treatment for enteritis, diarrhea. The patient was also found to have postprandial diarrhea, suspected to have pancreatic insufficiency, so started her on pancreatic enzyme supplement. The patient was evaluated his admission by the ID, and blood culture was gram-negative positive. The source of the gram-negative sepsis was not clear, rule out GI etiology,r/o port, GI consult was requested to further evaluate. The patient had a CT of the abdomen done, showed no acute diverticulitis,no collection or acute inflammatory path PAST MEDICAL HISTORY: Other past medical histories are significant for COPD, obstructive sleep apnea, chronic hepatitis C, degenerative joint disease, GERD, anxiety disorder, and depression. Other past medical histories are as above. FAMILY HISTORY: Noncontributory. SOCIAL HISTORY: Positive for smoking. Denies alcohol use. ALLERGIES: NO KNOWN DRUG ALLERGIES. REVIEW OF SYSTEMS: Positive as above. Other systems reviewed. PHYSICAL EXAMINATION GENERAL: The patient is lying on the bed, not in acute distress. VITAL SIGNS: Pulse 96 per minute, temperature is 98.7, blood pressure 127/77. HEENT: Atraumatic and anicteric. NECK: Supple. HEART: S1, S2, regular. LUNGS: Bilateral air entry present. ABDOMEN: Soft. EXTREMITIES: No cyanosis. No clubbing. LABORATORY DATA: WBC count 23.5, hemoglobin 9.6, hematocrit 29.1, platelets are 355. The patient had a CT done and it showed only the mass in the pancreas with metastatic liver and pulmonary mets. IMPRESSION: This is a 66-year-old patient with chronic hepatitis C metastatic pancreatic cancer, was admitted with worsening of the abdominal pain; blood cultures, gram-negative rods with CT of the abdomen and pelvis, then no obvious source of sepsis no diverticulitis or fluid collection noticed in the abdomen, appeared benign. RECOMMENDATIONS: 1. Followup of the cultures. 2. Continue antibiotics as per ID. Thank you very much for allowing us to participate in the care of this patient. We will continue to closely follow up her care. Suggest further management based on the clinical course. Thang Merchant MD [place]
[2017-08-01] MEDS: GlipiZIDE 10 mg SR Tab PO SCH (10:09)
[2017-08-01] MEDS: Meropenem 1g/NS 100mL IVPB 1 GM/100 ML PIGGYBACK IVPB SCH (10:09)
--- NOTE | 2017-08-01 13:22 | PN ---
DATE: 08/01/2017 SUBJECTIVE: The patient is in bed, in no acute distress, nontoxic, was seen earlier today. PHYSICAL EXAMINATION: VITAL SIGNS: Temperature is 98, blood pressure is 110/60, respiratory rate of 20. HEENT: Unremarkable. NECK: Supple. LUNGS: Decreased breath sounds. HEART EXAM: Normal S1 and S1. ABDOMINAL EXAMINATION: Soft, nontender. LABORATORY EXAMINATION: Reveals a white count of 23,500; hemoglobin of 9 and platelets of 355. Chemistries reveal a BUN of 12 and creatinine is 1.5. Urinalysis is noted. Microbiology reveals the patient's blood culture is connors-sensitive Klebsiella pneumoniae in 2 bottles of blood cultures, urine cultures with multiple species, so just repeat cultures. MEDICATIONS: Review of medications reveals the patient to be on meropenem. ASSESSMENT AND PLAN: A 66-year-old female with sepsis with Klebsiella pneumoniae bacteremia, chronic renal failure, pancreatic cancer, hypertension, history of hepatitis C, history of transient ischemic attack with urine with mixed organisms versus GI versus the MetaPort. The Klebsiella pneumoniae is connors sensitive. The patient had a CAT scan of the abdomen and pelvis which reveals no diverticulitis, there is diverticulosis, no acute abdominal or pelvic abnormality. There is re-demonstration of a mass in the head of the pancreas, arlet hepatic and pulmonary metastasis, soft tissue nodules in right lower quadrant, compatible with mesenteric metastasis. Dr. Ferrara's note is reviewed. Possibly a mid port is a possible source. We will repeat blood cultures x2; since the klebsiella in the blood is connors sensitive, we will discontinue the meropenem and use ceftriaxone and Flagyl and repeat blood cultures. Overall prognosis is quite poor in this patient with significant CAT scan findings. We will order an echo, rule out any vegetation, although klebsiella would be an unusual course of endocarditis and the patient also had an extremity ultrasound. Catheter-associated deep venous thrombosis in the right internal jugular vein is noted as ordered by Dr. Berry. Alethea-catheter thrombus is noted which is partially occlusive. We will check on the repeat blood cultures. The patient with pancreatic cancer, status post stent placement with metastatic liver disease; history of hepatitis C and metastatic pancreatic cancer today normal liver function tests and normal alkaline phosphatase. Luc Lynn MD
[2017-08-01] MEDS: HYDROmorphone 0.5 mg/0.5 ml ISec IVP PRN (19:22)
[2017-08-01] MEDS ORDERED: Dextrose 50% SYRINGE Inj (50 ml) IVP STA (21:12)
--- NOTE | 2017-08-01 21:12 | CP.PCM.PN ---
Subjective - Date & Time of Evaluation Date of Evaluation: 08/01/17 Time of Evaluation: 21:11 - Subjective Subjective: S: Seen at bedside. fsbs-48 mg %. States that she has been eating, drinking. Did not have Insulin. Has no complaints. No blurry vision, tingling, numbness. Medical record was reviewed. O:Obese woman, not in distress. Last Vital Signs 3 Temp 97.1 F L 08/01/17 18:00 Pulse 114 H 08/01/17 18:00 Resp 19 08/01/17 18:00 BP 120/82 08/01/17 18:00 Pulse Ox 93 L 08/01/17 06:00 Awake, alert, not in distress. LUNGS:Normal breathing pattern. A:Hypoglycemia. P:D50% 50 CC IV Stat. Objective - Vital Signs/Intake and Output Vital Signs (last 24 hours): Temp Pulse Resp BP Pulse Ox 97.1 F L 114 H 19 120/82 93 L 08/01/17 18:00 08/01/17 18:00 08/01/17 18:00 08/01/17 18:00 08/01/17 06:00 - Medications Medications: Current Medications Acetaminophen (Tylenol 325mg Tab) 650 mg PO Q4H PRN PRN Reason: Fever >100.5 F Last Admin: 08/01/17 12:32 Dose: 650 mg Albuterol/Ipratropium (Duoneb 3 Mg/0.5 Mg (3 Ml) Ud) 3 ml IH [id number] [facility] Last Admin: 08/01/17 21:07 Dose: Not Given Alprazolam (Xanax) 0.5 mg PO DAILY [facility] PRN Reason: Protocol Last Admin: 08/01/17 12:32 Dose: 0.5 mg Alprazolam (Xanax) 1 mg PO HS [facility] PRN Reason: Protocol Last Admin: 07/31/17 21:28 Dose: 1 mg Amylase (Pancrease 51823 U-5000 U-51942 U) 10,000 u PO WM [facility] Last Admin: 08/01/17 17:12 Dose: 10,000 u Enoxaparin Sodium (Lovenox) 90 mg SC Q12H [facility] PRN Reason: Protocol Last Admin: 08/01/17 20:25 Dose: 90 mg Glipizide (Glucotrol Xl) 10 mg PO DAILY [facility] Last Admin: 08/01/17 10:09 Dose: 10 mg Hydromorphone HCl (Dilaudid) 0.5 mg IVP Q4H PRN PRN Reason: Pain, Mild (1-3) Last Admin: 08/01/17 19:22 Dose: 0.5 mg Sodium Chloride (Sodium Chloride 0.9%) 1,000 mls @ 100 mls/hr IV .Q10H [facility] Last Admin: 08/01/17 01:30 Dose: 100 mls/hr Ceftriaxone Sodium (Rocephin 2 Gm Ivpb) 2 gm in 100 mls @ 100 mls/hr IVPB DAILY [facility] PRN Reason: Protocol Stop: 08/11/17 10:01 Insulin Human Regular (Humulin R Low) 0 units SC ACHS [facility] PRN Reason: Protocol Last Admin: 08/01/17 17:17 Dose: 3 units Loratadine (Claritin) 10 mg PO DAILY [facility] Last Admin: 08/01/17 10:09 Dose: 10 mg Metronidazole (Flagyl) 250 mg PO Q8H [facility] PRN Reason: Protocol Last Admin: 08/01/17 20:26 Dose: 250 mg Montelukast Sodium (Singulair) 10 mg PO HS [facility] Last Admin: 07/31/17 21:27 Dose: 10 mg Ondansetron HCl (Zofran Inj) 4 mg IVP Q4H PRN PRN Reason: Nausea/Vomiting Last Admin: 07/30/17 16:12 Dose: 4 mg Ondansetron HCl (Zofran Tab) 8 mg PO Q6 PRN PRN Reason: Nausea/Vomiting Pantoprazole Sodium (Protonix Ec Tab) 40 mg PO 0600 [facility] Last Admin: 08/01/17 06:35 Dose: 40 mg Pregabalin (Lyrica) 75 mg PO DAILY [facility] Last Admin: 08/01/17 10:09 Dose: 75 mg - Labs Labs: PT 13.6 Seconds (9.9-11.8) H 07/30/17 06:42 INR 1.26 (0.93-1.08) H 07/30/17 06:42 APTT 29.2 Seconds (23.7-30.8) 07/30/17 06:42
[2017-08-01] MEDS ORDERED: Dextrose 50% SYRINGE Inj (50 ml) ONE (21:14)
--- NOTE | 2017-08-01 22:10 | PN ---
DATE: SUBJECTIVE: This patient was seen and evaluated earlier. The patient is now tolerating the diet and abdominal discomfort is better. PHYSICAL EXAMINATION: VITAL SIGNS: Temperature is 97, pulse is 114, and blood pressure 120/82. HEENT: Atraumatic. Anicteric. NECK: Supple. HEART: S1 and S2 heard. LUNGS: Bilateral air entry present. ABDOMEN: Soft. Mild tenderness present to deep palpation in the left lower quadrant area. No rebound or guarding. EXTREMITIES: No cyanosis. No clubbing. NEUROLOGICAL: Alert and oriented. Moves all the extremities. The patient has right side chest port seen. LABORATORY DATA: There is no recent labs ordered today. The CT scan was reviewed. IMPRESSION: This 66-year-old patient with metastatic pancreatic cancer that locally advanced was recently discharged from the hospital and admitted with a sepsis again. Blood cultures grew gram-negative rods. The CT of the abdomen and pelvis did not show any focal inflammatory area to explain the sepsis. The port was also suspected to be the cause. Infectious diseases' senior science consultant note reviewed. Continue the antibiotics. PLAN: ID recommended consultation for removal of the port access suspected as this could be another source. We will continue to closely followup. The patient does have chronic diarrhea probably malabsorption secondary to exocrine pancreatic enzyme deficiency and the patient was started on pancreatic enzyme supplement. Thank you very much for allowing us to participate in the care of the patient. Thang Merchant MD
--- NOTE | 2017-08-01 22:15 | PN ---
SUBJECTIVE: The patient is examined at the bedside, looking comfortable, complaining of intractable diarrhea. No nausea or vomiting. No headache, no dizziness. No chest pain or palpitations. PHYSICAL EXAMINATION: VITAL SIGNS: Temperature 98.3, pulse 109, blood pressure 103/56, respiratory rate 19. HEENT: Head normocephalic, atraumatic. Eyes: PERRLA. Extraocular muscles intact. Conjunctivae clear. Nose patent. Mucous membrane moist. NECK: Supple. No carotid bruits. No JVD or thyromegaly. CHEST: Bilaterally symmetrical. HEART: S1 and S2 positive. LUNGS: Clear to auscultation. ABDOMEN: Soft. Bowel sounds present. No organomegaly. EXTREMITIES: No edema. No cyanosis. NEUROLOGIC: The patient is awake and alert. Moving all 4 extremities. No focal deficits. MEDICATIONS: Claritin, Dilaudid, albuterol, Flagyl, Glucotrol, insulin, Lovenox, Lyrica, Amylase, Protonix, Rocephin, Singulair, NS, Tylenol, Xanax, Zofran, Zoloft. LABORATORY DATA: White blood cell 23.5, hemoglobin 9.6, hematocrit 27.1, and platelets 355. Glucose 114, 75, 196, 174, 257, 174. ASSESSMENT AND PLAN: The patient is a 66-year-old female with sepsis, with Klebsiella pneumoniae bacteremia, chronic renal failure, pancreatic cancer, hypertension, history of hepatitis C, history of transient ischemic attack. Urine with mixed organisms versus GI versus MetaPort. The Klebsiella pneumoniae is sensitive. The patient had a CAT scan of the abdomen and pelvis which reveals no diverticulitis, a mass in the head of the pancreas. Pancreatic cancer with metastases to the liver, lungs, mesenteric metastasis. Repeat blood culture. May be we have to review the port. We will use ceftriaxone and Flagyl. Discontinue meropenem as per Infectious Disease. Overall prognosis is poor. Rule out any vegetation. All the Klebsiella would be the unusual source of endocarditis and the patient has also had extremity ultrasound. Catheter-associated deep venous thrombosis is in the right internal jugular vein. Perithrombus is noted which is partially occlusive. The patient is started on the Lovenox. Continue present treatment. Discussion done with Dr. Stephen. We will follow up. Georgina Ferrara MD
[2017-08-02] MEDS: Albuterol-Ipratrop 3 mg / 0.5 (3 ml) UD IH SCH ×4 (01:01→20:00)
[2017-08-02] MEDS: HYDROmorphone 0.5 mg/0.5 ml ISec IVP PRN ×3 (01:27→16:25)
[2017-08-02] MEDS: Pantoprazole 40 mg EC Tab PO SCH (05:00)
[2017-08-02 07:16] LABS: MEAN CELL VOLUME 79.9 fl (80.0-105.0); MEAN CORPUSCULAR HEMOGLOBIN 26.6 pg (25.0-35.0); MEAN CORPUSCULAR HGB CONC 33.3 g/dl (31.0-37.0); MEAN PLATELET VOLUME 8.6 fl (7.0-11.0); RED CELL DISTRIBUTION WIDTH 20.4 % (11.5-14.5)
[2017-08-02 07:20] LABS: BLOOD UREA NITROGEN 6 mg/dL (7-21); CALCIUM 7.5 mg/dL (8.4-10.5); CARBON DIOXIDE 25 mmol/L (21-33); CHLORIDE 108 mmol/L (95-110); GFR AFRICAN-AMERICAN > 60; POTASSIUM 3.5 mmol/L (3.6-5.0); SODIUM 138 mmol/L (132-148)
[2017-08-02 08:02] LABS: GLUCOSE,RANDOM 45 mg/dL (70-110)
[2017-08-02] MEDS: Insulin Reg-LOW-Coverage SC SCH ×4 (08:22→22:18)
[2017-08-02] MEDS: Enoxaparin 100 mg Syringe SC SCH ×2 (08:29→22:27)
[2017-08-02] MEDS: Amylase/Lipase/Protease 5,000 U ECC PO SCH ×3 (08:30→17:18)
[2017-08-02] MEDS: cefTRIAXone 2 GM IN NS 2 GM/100 ML BAG IVPB SCH (09:30)
[2017-08-02] MEDS: GlipiZIDE 10 mg SR Tab PO SCH (09:30)
--- NOTE | 2017-08-02 11:24 | CON ---
DATE: 08/01/2017 PULMONARY CONSULT REFERRING PHYSICIAN: Georgina Ferrara MD REASON FOR CONSULT: Chronic obstructive lung disease, sleep apnea syndrome, metastatic adenocarcinoma, found to have a jugular DVT. HISTORY OF PRESENT ILLNESS: This is a 66-year-old female has adenocarcinoma with metastatic disease involving the liver, pancreatic head, obstructing duct requiring stent and mets to the lung, hypertension, history of hepatitis C, chronic lung disease, sleep apnea syndrome, who was just recently discharged comes in with leukocytosis. Septic workup showed Gram negative bacilli in the blood. Ultrasound showed DVT. She was started on broad spectrum antibiotics, also started on anticoagulation. Presently, lying in the bed, feels better, has a right chest Port-A-Cath. No hemoptysis. No hematemesis. No hematuria. Has mild abdominal pain. PAST MEDICAL HISTORY: As per history of present illness. FAMILY HISTORY: Positive for diabetes and hypertension. SOCIAL HISTORY: Stopped smoking. Denies any alcohol use. ALLERGIES: NONE KNOWN. MEDICATIONS: She is on Claritin 10 mg daily, Dilaudid 0.5 mg q.4 hours, DuoNeb q.6 hours, Flagyl 250 mg q.8 hours, glipizide 10 mg daily, insulin coverage, Lovenox mg subcu twice a day, Lyrica 75 mg daily, Pancrease 10,000 units with the meals, Protonix 40 mg daily, Rocephin 2 g IV daily, Singulair 10 mg daily, IV fluid normal saline 100 mL/hour, Tylenol p.r.n., Xanax 0.5 mg daily, Xanax 1 mg at bedtime, and Zofran on a p.r.n. basis. REVIEW OF SYSTEMS: No headache. No rhinitis. No cough. No chest pain. Has abdominal pain, loose bowel movement. No leg pain or leg swelling. PHYSICAL EXAMINATION: GENERAL: Lying in the bed, in no acute distress. VITAL SIGNS: Temperature is 98, heart rate is 89, respiratory rate is 20, blood pressure is 120/82, and pulse ox is 93% on 2 liters nasal cannula. HEENT: Moist mucous membranes. Crowded airway. Mallampati score is IV. NECK: Supple. No JVD. He has a palpable catheter, and the right jugular vein has Port-A-Cath on the right. LUNGS: Fair airflow with few rhonchi. HEART: S1 and S2. ABDOMEN: Positive bowel sounds. Mild epigastric pain. EXTREMITIES: There is no edema. NEUROLOGICAL: Awake, alert, follows simple commands. LABORATORY DATA: Show hemoglobin 9.6, hematocrit 29.1, WBC 23,000, and platelets 355. INR 1.26 and PTT 29. Has VBG done on 07/30/2017 shows pH 7.35, PCO2 39, O2 173, blood sugar was 130. On admission sodium 136, potassium 3.9, chloride 102, bicarbonate 20, BUN 12, creatinine 1.5, glucose 188, calcium 7.3, phosphorous 5.6, magnesium 1.5, AST 39, ALT 30, alkaline phosphatase is 99, troponin less than 0.5. C-reactive protein more than 15, albumin is 2.3, procalcitonin 0.81. Blood cultures has Klebsiella pneumoniae. Ultrasound shows catheter associated DVT in the right internal jugular vein. IMPRESSION AND PLAN: Bacteremia probably catheter related also have the right internal jugular deep venous thrombosis, which is catheter related, metastatic adenocarcinoma involving the liver, pancreatic duct, pancreatic head, lungs, hepatitis C, history of chronic obstructive pulmonary disease, hypertension, diarrhea, probably pancreatic insufficiency. Case discussed with Dr. Ferrara. Continue anticoagulation for now. May add Coumadin 5 mg today. Sleep apnea precautions, bronchodilators, pain management. Need to follow up ultrasound of the right internal jugular in 2 to 3 weeks. If that does not improved, the patient asymptomatic may need to extract out the Port-A-Cath. Thank you and will follow with you. Linnea Stephen MD
--- NOTE | 2017-08-02 12:39 | CON ---
HISTORY OF PRESENT ILLNESS: Shortly, the patient is a 66-year-old -[place] female with multiple medical issues including pancreatic cancer, hypertension, COPD, hepatitis C, history of TIA. The patient was admitted onto medical side, status post fall as well as left hip pain, syncopal episode. Psych consult was called for evaluation of depressive symptoms. The patient was seen and examined today. This chief underwriter is very familiar with this patient from the consultation services which took place here in [place] years back. The patient was seen and examined today in the morning time. The patient appears to be very confused following a sleep during the interview. As per record, the patient's sugar is over 45, which is low, that is why probably the patient is very confused. The patient was not able to provide any history, was opening her eyes and was asking "did I talk to you?" PHYSICAL EXAMINATION: VITAL SIGNS: Reviewed. Temperature is 97.4, pulse is 92, blood pressure 100/69, respirations 19, oxygen saturation is 95%. MEDICATIONS: Reviewed. The patient is on Tylenol, DuoNeb, Xanax 0.5 mg daily and 1 mg at the nighttime. The patient is on amylase, ceftriaxone, Lovenox, glipizide, Dilaudid, Humulin, Claritin, Flagyl, Singulair, Zofran, Protonix, pregabalin, and sodium chloride. LABORATORY DATA: Reviewed. Hematology is showing WBC cells 16, hemoglobin 9.0, hematocrit 27.0. Coagulation reviewed. Blood gas reviewed. Chemistry reviewed. Potassium is 3.5. Glucose as this chief underwriter mentioned was . Urinalysis showed blood moderate and leukocyte esterase not reviewed. The patient had abdominal and pelvic CT scan with no acute abdominal or pelvic abnormality. Re-demonstration of mass in the head of the pancreas was arlet, hepatic and pulmonary masses, soft tissue nodules in the right lower quadrant, also compatible with mesenteric metastasis. Left colonic diverticulosis with CT scan evident for acute diverticulitis. MENTAL STATUS EXAMINATION: This chief underwriter as described above, the patient is very confused, lethargic, was falling asleep during the interview. The patient was able to say that she gets medications at [facility], but [facility] was closed at present moment, but we will call and confirm this medication; other than that, the mental status is unable to evaluated. IMPRESSION: Rule out delirium. The patient has history of depression, rule out mood disorder due to general medical condition. The patient has multiple medical issues including pancreatic cancer with metastasis with sepsis with gram-negative josh. PLAN: The patient was seen by GI team. The patient was seen by infectious disease team, by neurologist and primary care physician, continue that. The patient has history of depression, was seen by psychiatrist at [facility], but this chief underwriter is not sure if the patient has seen psychiatrist in the outpatient setting. This chief underwriter attempted to call [facility], but the pharmacy is closed at present moment, we will call them back again in order to verify list of the medication for this patient. Meanwhile continue current management, continue current medications. We will follow up and advise accordingly. Should you have any questions, give me a call back. There are no acute issues and the patient deemed not to be with intent to injure self or others. Ingrid Selby MD
--- NOTE | 2017-08-02 12:46 | CP.PCM.PN ---
<Shalonda Galvan - Last Filed: 08/02/17 12:46> Subjective - Date & Time of Evaluation Date of Evaluation: 08/02/17 Time of Evaluation: 09:00 - Subjective Subjective: GI PROGRESS NOTE FOR DR. GREEN Patient seen and examined at bedside. She denies pain and she is tolerating her diet. Denies nausea or vomiting. She had some loose bowel movements this AM. Had hypoglycemia this AM which is now resolved. She had an ECHO this morning to rule out vegetations. Objective - Vital Signs/Intake and Output Vital Signs (last 24 hours): Temp Pulse Resp BP Pulse Ox 97.4 F L 92 H 19 100/69 95 08/02/17 06:00 08/02/17 10:00 08/02/17 06:00 08/02/17 06:00 08/02/17 06:00 Intake and Output: 08/02/17 08/02/17 06:59 18:59 Intake Total 1200 Balance 1200 - Medications Medications: Current Medications Acetaminophen (Tylenol 325mg Tab) 650 mg PO Q4H PRN PRN Reason: Fever >100.5 F Last Admin: 08/01/17 12:32 Dose: 650 mg Albuterol/Ipratropium (Duoneb 3 Mg/0.5 Mg (3 Ml) Ud) 3 ml IH [id number] [facility] Last Admin: 08/02/17 07:20 Dose: Not Given Alprazolam (Xanax) 0.5 mg PO DAILY [facility] PRN Reason: Protocol Last Admin: 08/02/17 09:29 Dose: 0.5 mg Alprazolam (Xanax) 1 mg PO HS [facility] PRN Reason: Protocol Last Admin: 08/01/17 21:30 Dose: 1 mg Amylase (Pancrease 50271 U-5000 U-26750 U) 10,000 u PO WM [facility] Last Admin: 08/02/17 08:30 Dose: 10,000 u Enoxaparin Sodium (Lovenox) 90 mg SC Q12H [facility] PRN Reason: Protocol Last Admin: 08/02/17 08:29 Dose: 90 mg Hydromorphone HCl (Dilaudid) 0.5 mg IVP Q4H PRN PRN Reason: Pain, Mild (1-3) Last Admin: 08/02/17 04:59 Dose: 0.5 mg Sodium Chloride (Sodium Chloride 0.9%) 1,000 mls @ 100 mls/hr IV .Q10H [facility] Last Admin: 08/01/17 23:05 Dose: 100 mls/hr Ceftriaxone Sodium (Rocephin 2 Gm Ivpb) 2 gm in 100 mls @ 100 mls/hr IVPB DAILY [facility] PRN Reason: Protocol Stop: 08/11/17 10:01 Last Admin: 08/02/17 09:30 Dose: 100 mls/hr Insulin Human Regular (Humulin R Low) 0 units SC ACHS [facility] PRN Reason: Protocol Last Admin: 08/02/17 08:22 Dose: Not Given Loratadine (Claritin) 10 mg PO DAILY [facility] Last Admin: 08/02/17 09:30 Dose: 10 mg Metronidazole (Flagyl) 250 mg PO Q8H [facility] PRN Reason: Protocol Last Admin: 08/02/17 04:58 Dose: 250 mg Montelukast Sodium (Singulair) 10 mg PO HS [facility] Last Admin: 08/01/17 21:30 Dose: 10 mg Ondansetron HCl (Zofran Inj) 4 mg IVP Q4H PRN PRN Reason: Nausea/Vomiting Last Admin: 07/30/17 16:12 Dose: 4 mg Ondansetron HCl (Zofran Tab) 8 mg PO Q6 PRN PRN Reason: Nausea/Vomiting Pantoprazole Sodium (Protonix Ec Tab) 40 mg PO 0600 [facility] Last Admin: 08/02/17 05:00 Dose: 40 mg Pregabalin (Lyrica) 75 mg PO DAILY [facility] Last Admin: 08/02/17 09:30 Dose: 75 mg - Labs Labs: 08/02/17 07:08 08/02/17 07:08 PT 13.6 Seconds (9.9-11.8) H 07/30/17 06:42 INR 1.26 (0.93-1.08) H 07/30/17 06:42 APTT 29.2 Seconds (23.7-30.8) 07/30/17 06:42 - Constitutional Appears: Non-toxic, No Acute Distress - Head Exam Head Exam: ATRAUMATIC, NORMAL INSPECTION - Respiratory Exam Respiratory Exam: NORMAL BREATHING PATTERN. absent: Respiratory Distress - Cardiovascular Exam Cardiovascular Exam: +S1, +S2 - GI/Abdominal Exam GI & Abdominal Exam: Soft. absent: Firm, Guarding, Rigid, Tenderness, Rebound - Neurological Exam Neurological Exam: Alert, Awake - Psychiatric Exam Psychiatric exam: Normal Affect, Normal Mood - Skin Additional comments: Right chest: port Assessment and Plan - Assessment and Plan (Free Text) Assessment: 66yo F with metastatic pancreatic cancer that is locally advanced. She was recently discharged from the hospital and is admitted again with sepsis. Blood cx: Klebsiella pneumoniae x2. CT abd/pelvis did not show any focal inflammatory area to explain the sepsis. Her port is suspected to be the cause. - Afebrile - Leukocytosis WBC 16.0, decreased from yesterday (23.5) - ID recommended consult for removal of port as this could be the source - Patient has chronic diarrhea probably malabsorption secondary to exocrine pancreatic enzyme deficiency, continue pancreatic enzyme supplement - Will FU ECHO - Discussed plan with Dr. Mayur Galvan PGY-3 <Thang Green V - Last Filed: 08/02/17 23:06> Objective - Vital Signs/Intake and Output Vital Signs (last 24 hours): Temp Pulse Resp BP Pulse Ox 99 F 100 H 19 142/94 H 95 08/02/17 17:33 08/02/17 17:33 08/02/17 17:33 08/02/17 17:33 08/02/17 06:00 - Medications Medications: Current Medications Acetaminophen (Tylenol 325mg Tab) 650 mg PO Q4H PRN PRN Reason: Fever >100.5 F Last Admin: 08/01/17 12:32 Dose: 650 mg Albuterol/Ipratropium (Duoneb 3 Mg/0.5 Mg (3 Ml) Ud) 3 ml IH [id number] [facility] Last Admin: 08/02/17 20:00 Dose: Not Given Alprazolam (Xanax) 0.5 mg PO DAILY [facility] PRN Reason: Protocol Last Admin: 08/02/17 09:29 Dose: 0.5 mg Alprazolam (Xanax) 1 mg PO HS [facility] PRN Reason: Protocol Last Admin: 08/02/17 22:28 Dose: 1 mg Amylase (Pancrease 97344 U-5000 U-83615 U) 10,000 u PO WM [facility] Last Admin: 08/02/17 17:18 Dose: 10,000 u Enoxaparin Sodium (Lovenox) 90 mg SC Q12H [facility] PRN Reason: Protocol Last Admin: 08/02/17 22:27 Dose: 90 mg Hydromorphone HCl (Dilaudid) 0.5 mg IVP Q4H PRN PRN Reason: Pain, Mild (1-3) Last Admin: 08/02/17 16:25 Dose: 0.5 mg Ceftriaxone Sodium (Rocephin 2 Gm Ivpb) 2 gm in 100 mls @ 100 mls/hr IVPB DAILY [facility] PRN Reason: Protocol Stop: 08/11/17 10:01 Last Admin: 08/02/17 09:30 Dose: 100 mls/hr Insulin Human Regular (Humulin R Low) 0 units SC ACHS [facility] PRN Reason: Protocol Last Admin: 08/02/17 22:18 Dose: Not Given Loratadine (Claritin) 10 mg PO DAILY [facility] Last Admin: 08/02/17 09:30 Dose: 10 mg Metronidazole (Flagyl) 250 mg PO Q8H [facility] PRN Reason: Protocol Last Admin: 08/02/17 22:28 Dose: 250 mg Montelukast Sodium (Singulair) 10 mg PO HS [facility] Last Admin: 08/02/17 22:28 Dose: 10 mg Ondansetron HCl (Zofran Inj) 4 mg IVP Q4H PRN PRN Reason: Nausea/Vomiting Last Admin: 08/02/17 16:25 Dose: 4 mg Ondansetron HCl (Zofran Tab) 8 mg PO Q6 PRN PRN Reason: Nausea/Vomiting Pantoprazole Sodium (Protonix Ec Tab) 40 mg PO 0600 [facility] Last Admin: 08/02/17 05:00 Dose: 40 mg Potassium Chloride (Klor-Con 10) 10 meq PO BRK [facility] Last Admin: 08/02/17 17:18 Dose: 10 meq Pregabalin (Lyrica) 75 mg PO DAILY [facility] Last Admin: 08/02/17 09:30 Dose: 75 mg - Labs Labs: 08/02/17 07:08 08/02/17 07:08 PT 13.6 Seconds (9.9-11.8) H 07/30/17 06:42 INR 1.26 (0.93-1.08) H 07/30/17 06:42 APTT 29.2 Seconds (23.7-30.8) 07/30/17 06:42 Attending/Attestation - Attestation I have personally seen and examined this patient.: Yes I have fully participated in the care of the patient.: Yes I have reviewed all pertinent clinical information, including history, physical exam and plan: Yes Notes (Text): This is an addendum to GI progress report dictated by Resident.The patient was seen and examined earlier. Medical records, lab studies, imagings were reviewed. Last 24 hours events reviewed. 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
[2017-08-02] MEDS: Potassium Chloride 10 mEq ER Tab PO SCH (17:18)
[2017-08-02] MEDS: Sodium Chloride 0.9% 1,000 ML IV SCH ×2 (17:19→20:07)
--- NOTE | 2017-08-02 19:44 | PN ---
PULMONARY PROGRESS NOTE DATE: 08/02/2017 REFERRING PHYSICIAN: Georgina Ferrara MD SUBJECTIVE: She is sitting up in the bed, night was unremarkable. No cough. No shortness of breath. Epigastric pain, has loose bowel movement. No leg pain or leg swelling. PHYSICAL EXAMINATION: GENERAL: No acute distress. VITAL SIGNS: Temperature 98, heart rate is 92, respiratory rate 18, blood pressure 100/69, pulse ox 75% on room air. HEENT: Moist mucous membrane. Crowded airway. NECK: Supple. No JVD. LUNGS: Fair airflow with few rhonchi. HEART: S1 and S2. ABDOMEN: Positive bowel sounds. Mild epigastric tenderness. EXTREMITIES: There is no edema. NEUROLOGIC: Awake, alert, follow simple commands. MEDICATIONS: She is on Claritin 10 mg daily, Dilaudid 0.5 mg q. 4 hours p.r.n., DuoNeb q. 6 hours, Flagyl 250 mg q. 8 hours, insulin coverage, potassium 10 mEq daily, Lovenox 90 mg subcutaneous twice daily, Lyrica 75 mg daily, Pancrease 10, 000 units with meals, Protonix 40 mg daily, Rocephin 1 g daily, Singulair 10 mg daily, IV fluid normal saline 100 mL/hour, Tylenol p.r.n., Xanax 0.5 mg daily, Xanax 1 mg at bedtime, and Zofran on a p.r.n. basis. LABORATORY DATA: Shows hemoglobin is 9.0, hematocrit 27.0, WBC is 16,000, and platelet is 368. Sodium 138, potassium 3.5, chloride 108, bicarbonate 25, BUN 6, creatinine 0.6, glucose 66, calcium is 7.5. Microbiology: Blood culture has Klebsiella pneumonia, repeat blood culture from yesterday so far there is no growth. She had an echocardiogram done, report is pending. IMPRESSION AND PLAN: Bacteremia, probably catheter related, also have a internal jugular deep venous thrombosis, metastatic adenocarcinoma involving the liver, pancreatic duct requiring stent, also liver involvement, lung involvement, hepatitis C, chronic obstructive lung disease, hypertension, pancreatic insufficiency. Pulmonary point of view, doing okay. Keep head at 45 degrees. Sleep apnea precaution, careful with sedation, pain management, antibiotics, anticoagulation. Thank you and we will follow with you. Linnea Stephen MD [facility] # [id number]
--- NOTE | 2017-08-03 00:09 | PN ---
DATE: SUBJECTIVE: The patient is seen and examined on the bedside, sitting comfortably. No nausea, vomiting, diarrhea. No hematuria, hematochezia. No swelling of the leg. No chest pain. No palpitations. Cough is better. Shortness of breath is better. Epigastric pain is better. Still has diarrhea according to the patient. She cannot sleep at night due to diarrhea. The patient was getting IV fluid twice a day then I hold the IV fluid, because blood pressure is getting within normal range. PHYSICAL EXAMINATION: VITAL SIGNS: Temperature 98, heart rate 92, respiratory rate 18, blood pressure 142/94. HEENT: Head is normocephalic and atraumatic. Eyes: PERRLA. Extraocular muscles intact. Conjunctivae clear. Nose patent. Mucous membrane moist. NECK: Supple. No carotid bruit, JVD, or thyromegaly. CHEST: Bilaterally symmetrical. HEART: S1 and S2 positive. LUNGS: Clear to auscultation. ABDOMEN: Soft. Bowel sounds present. No organomegaly. EXTREMITIES: No edema and no cyanosis. NEUROLOGIC: The patient is awake and alert. Moving all four extremities. No focal deficit. MEDICATIONS: Claritin, Dilaudid, DuoNeb, Flagyl, insulin, K-Meryl, Lovenox, Lyrica, Amylase, Protonix, Singulair, Tylenol, Xanax, Zofran. LABORATORY DATA: White blood cell 16.0, hemoglobin 9.0, hematocrit 27.0, platelets 358. Sodium 138, potassium 3.5, BUN 6, creatinine 0.6, glucose 40, 66, 76, and 84. Calcium 7.5. ASSESSMENT AND PLAN: Ms. Hortensia Love is a 66-year-old lady with leukocytosis, improved. On admission, white blood cell was 23.5, today is 16, hemoglobin 9, hematocrit 27.0, platelets 358. Hypokalemia, replaced; hypoglycemia, hypocalcemia, proteinuria, hematuria, urinary tract infection, bacteremia probably catheter related, also have internal jugular deep vein thrombosis, metastatic adenocarcinoma involving the liver, pancreatic duct, lungs, requiring stenting. Hepatitis C positive, sleep apnea syndrome, still has diarrhea, seen by Dr. Merchant. CAT scan of the abdomen and pelvis dot not show any focal inflammatory areas to explain the sepsis. Infectious disease is on that case. Continue antibiotic. ID recommended consulting for removal of the port access suspected as it could be the another cause. The patient has chronic diarrhea may be mild absorption secondary to exocrine pancreatic enzyme deficiency and the patient was started on pancreatic enzyme supplement. Requires Loi Zamudio consult. We will follow up. Georgina Ferrara MD
[2017-08-03] MEDS: Albuterol-Ipratrop 3 mg / 0.5 (3 ml) UD IH SCH ×4 (02:23→19:23)
[2017-08-03] MEDS: HYDROmorphone 0.5 mg/0.5 ml ISec IVP PRN ×5 (02:33→21:16)
[2017-08-03] MEDS: Pantoprazole 40 mg EC Tab PO SCH (05:10)
[2017-08-03 06:11] LABS: HEMATOCRIT 27.1 % (36.0-48.0); MEAN CELL VOLUME 80.9 fl (80.0-105.0); MEAN CORPUSCULAR HEMOGLOBIN 27.2 pg (25.0-35.0); MEAN CORPUSCULAR HGB CONC 33.6 g/dl (31.0-37.0); MEAN PLATELET VOLUME 8.5 fl (7.0-11.0); RED CELL DISTRIBUTION WIDTH 20.6 % (11.5-14.5); WHITE BLOOD COUNT 18.2 10^3/ul (4.5-11.0)
[2017-08-03 06:42] LABS: BLOOD UREA NITROGEN 4 mg/dL (7-21); CALCIUM 7.7 mg/dL (8.4-10.5); CARBON DIOXIDE 24 mmol/L (21-33); CHLORIDE 109 mmol/L (95-110); GFR AFRICAN-AMERICAN > 60; GLUCOSE,RANDOM 110 mg/dL (70-110); POTASSIUM 3.4 mmol/L (3.6-5.0); SODIUM 140 mmol/L (132-148)
[2017-08-03] MEDS: Insulin Reg-LOW-Coverage SC SCH ×4 (08:15→21:46)
[2017-08-03] MEDS: Potassium Chloride 10 mEq ER Tab PO SCH (08:31)
[2017-08-03] MEDS: Amylase/Lipase/Protease 5,000 U ECC PO SCH ×3 (08:31→16:35)
[2017-08-03] MEDS: Enoxaparin 100 mg Syringe SC SCH ×2 (08:31→21:16)
--- NOTE | 2017-08-03 09:10 | CARD ---
APPROVED REPORT EXAM: Two-dimensional and M-mode echocardiogram with Doppler and color Doppler. Other Information Quality : AverageRhythm : INDICATION R/O ENDOCARDITIS 2D DIMENSIONS Left Atrium (2D)4.0 (1.6-4.0cm)IVSd1.1 (0.7-1.1cm) LVDd4.5 (3.9-5.9cm)PWd1.1 (0.7-1.1cm) LVDs3.3 (2.5-4.0cm)FS (%) 25.6 % LVEF (%)50.0 (>50%) M-Mode DIMENSIONS Aortic Root3.10 (2.2-3.7cm)Aortic Cusp Exc.1.70 (1.5-2.0cm) Aortic Valve AoV Peak Ynewaiqp115.0cm/s Mitral Valve MV E Zkikhkrg40.9cm/sMV A Zixstldy770.0cm/sE/A ratio0.8 TDI Lateral E' Peak V13.80cm/sMedial E' Peak V4.87cm/sE/Lateral E'6.1 E/Medial E'17.2 Pulmonary Valve PV Peak Musicepm85.8cm/sPV Peak Grad.1mmHg Tricuspid Valve TR Peak Qckdrkid004vi/sRAP [id number] Peak Gr.36mmHg [id number] LEFT VENTRICLE The left ventricle is normal size. There is normal left ventricular wall thickness. The left ventricular function is normal. The left ventricular ejection fraction is within the normal range. There is normal LV segmental wall motion. RIGHT VENTRICLE The right ventricle is normal size. ATRIA The left atrium size is normal. The right atrium size is normal. The interatrial septum is intact with no evidence for an atrial septal defect. AORTIC VALVE The aortic valve is normal in structure. MITRAL VALVE The mitral valve is normal in structure. Mitral regurgitation is mild. TRICUSPID VALVE The tricuspid valve is normal in structure. There is mild tricuspid regurgitation. PULMONIC VALVE The pulmonic valve is not well visualized. GREAT VESSELS The aortic root is normal in size. PERICARDIAL EFFUSION There is no pericardial effusion. <Conclusion> The left ventricle is normal size. There is normal left ventricular wall thickness. The left ventricular function is normal. Mitral regurgitation is mild. There is mild tricuspid regurgitation. No vegetation seen.
[2017-08-03] MEDS: cefTRIAXone 2 GM IN NS 2 GM/100 ML BAG IVPB SCH (09:36)
--- NOTE | 2017-08-03 12:40 | CP.PCM.PN ---
Subjective - Date & Time of Evaluation Date of Evaluation: 08/03/17 Time of Evaluation: 09:45 - Subjective Subjective: Has some nausea which is controlled with Zofran, no fevers, not in distress. Objective - Vital Signs/Intake and Output Vital Signs (last 24 hours): Temp Pulse Resp BP Pulse Ox 99.2 F 104 H 20 164/91 H 95 08/03/17 06:00 08/03/17 06:00 08/03/17 06:00 08/03/17 06:00 08/03/17 06:00 Intake and Output: 08/02/17 08/03/17 18:59 06:59 Intake Total 440 Output Total 800 Balance -360 - Medications Medications: Current Medications Acetaminophen (Tylenol 325mg Tab) 650 mg PO Q4H PRN PRN Reason: Fever >100.5 F Last Admin: 08/01/17 12:32 Dose: 650 mg Albuterol/Ipratropium (Duoneb 3 Mg/0.5 Mg (3 Ml) Ud) 3 ml IH [id number] [facility] Last Admin: 08/03/17 02:23 Dose: Not Given Alprazolam (Xanax) 0.5 mg PO DAILY [facility] PRN Reason: Protocol Last Admin: 08/02/17 09:29 Dose: 0.5 mg Alprazolam (Xanax) 1 mg PO HS [facility] PRN Reason: Protocol Last Admin: 08/02/17 22:28 Dose: 1 mg Amylase (Pancrease 61404 U-5000 U-13470 U) 10,000 u PO WM [facility] Last Admin: 08/02/17 17:18 Dose: 10,000 u Enoxaparin Sodium (Lovenox) 90 mg SC Q12H [facility] PRN Reason: Protocol Last Admin: 08/02/17 22:27 Dose: 90 mg Hydromorphone HCl (Dilaudid) 0.5 mg IVP Q4H PRN PRN Reason: Pain, Mild (1-3) Last Admin: 08/03/17 02:33 Dose: 0.5 mg Ceftriaxone Sodium (Rocephin 2 Gm Ivpb) 2 gm in 100 mls @ 100 mls/hr IVPB DAILY [facility] PRN Reason: Protocol Stop: 08/11/17 10:01 Last Admin: 08/02/17 09:30 Dose: 100 mls/hr Insulin Human Regular (Humulin R Low) 0 units SC ACHS [facility] PRN Reason: Protocol Last Admin: 08/02/17 22:18 Dose: Not Given Loratadine (Claritin) 10 mg PO DAILY [facility] Last Admin: 08/02/17 09:30 Dose: 10 mg Metronidazole (Flagyl) 250 mg PO Q8H [facility] PRN Reason: Protocol Last Admin: 08/03/17 05:10 Dose: 250 mg Montelukast Sodium (Singulair) 10 mg PO HS [facility] Last Admin: 08/02/17 22:28 Dose: 10 mg Ondansetron HCl (Zofran Inj) 4 mg IVP Q4H PRN PRN Reason: Nausea/Vomiting Last Admin: 08/02/17 16:25 Dose: 4 mg Ondansetron HCl (Zofran Tab) 8 mg PO Q6 PRN PRN Reason: Nausea/Vomiting Pantoprazole Sodium (Protonix Ec Tab) 40 mg PO 0600 [facility] Last Admin: 08/03/17 05:10 Dose: 40 mg Potassium Chloride (Klor-Con 10) 10 meq PO BRK [facility] Last Admin: 08/02/17 17:18 Dose: 10 meq Pregabalin (Lyrica) 75 mg PO DAILY [facility] Last Admin: 08/02/17 09:30 Dose: 75 mg - Labs Labs: 08/03/17 06:03 08/03/17 06:03 PT 13.6 Seconds (9.9-11.8) H 07/30/17 06:42 INR 1.26 (0.93-1.08) H 07/30/17 06:42 APTT 29.2 Seconds (23.7-30.8) 07/30/17 06:42 - Constitutional Appears: Non-toxic, No Acute Distress - Head Exam Head Exam: NORMAL INSPECTION - ENT Exam ENT Exam: Mucous Membranes Moist - Neck Exam Neck Exam: absent: Meningismus - Respiratory Exam Respiratory Exam: Decreased Breath Sounds Additional comments: right anterior chest wall mediport in place - Cardiovascular Exam Cardiovascular Exam: +S1, +S2 - GI/Abdominal Exam GI & Abdominal Exam: Soft. absent: Tenderness Assessment and Plan - Assessment and Plan (Free Text) Plan: Assessment sepsis due to Klebsiella bacteremia, R/O port infection (since there is no evidence of urinary tract or intra-abdominal infection) S/P mediport placement chronic renal failure pancreatic cancer HTN history of Hepatitis C history of TIA COPD Plan continue Rocephin and we are awaiting plan for remove mediport; will repeat blood cx after mediport is removed will monitor clinically
--- NOTE | 2017-08-03 16:27 | NM ---
PROCEDURE: Nuclear medicine gastrointestinal bleeding scan. HISTORY: bloody BM and rectal bleeding COMPARISON: 07/31/2017 CT abdomen and pelvis. TECHNIQUE: 4 cc of patient blood was withdrawn and mixed with 21 mCi of technetium ultra tagged. Images of the abdomen and pelvis were obtained in the anterior and posterior projection at 1 min intervals over a period of 45 min. FINDINGS: No abnormal extravasation of tracer was observed throughout the exam to indicate active bleeding within or outside the gastrointestinal tract. There is solitary focus of accumulation of radionuclide in the pelvis superior to the bladder. However this remains in a static position and therefore it is not diagnostic for acute gastrointestinal hemorrhage. Physiologic activity was seen in the heart, liver, spleen and blood vessels. IMPRESSION: No evidence of active gastrointestinal bleeding.
--- NOTE | 2017-08-03 18:38 | CP.PCM.PN ---
Addendum entered and electronically signed by Shalonda Galvan DO 08/03/17 18:52 : Correction: recommend switching Lovenox to Heparin due to bloody bowel movement Original Note: <Shalonda Galvan - Last Filed: 08/03/17 18:49> Subjective - Date & Time of Evaluation Date of Evaluation: 08/03/17 Time of Evaluation: 07:00 - Subjective Subjective: GI PROGRESS NOTE FOR DR. GREEN Patient seen and examined at bedside. She reports that she "doesn't feel right" . She has nausea and had a bloody bowel movement last night. She denies vomiting. She reports abdominal pain in her upper abdomen. Objective - Vital Signs/Intake and Output Vital Signs (last 24 hours): Temp Pulse Resp BP Pulse Ox 97.1 F L 102 H 19 157/90 H 95 08/03/17 12:00 08/03/17 14:00 08/03/17 12:00 08/03/17 12:00 08/03/17 06:00 Intake and Output: 08/03/17 08/03/17 06:59 18:59 Intake Total 440 Output Total 800 Balance -360 - Medications Medications: Current Medications Acetaminophen (Tylenol 325mg Tab) 650 mg PO Q4H PRN PRN Reason: Fever >100.5 F Last Admin: 08/01/17 12:32 Dose: 650 mg Albuterol/Ipratropium (Duoneb 3 Mg/0.5 Mg (3 Ml) Ud) 3 ml IH [id number] [facility] Last Admin: 08/03/17 13:30 Dose: Not Given Alprazolam (Xanax) 0.5 mg PO DAILY [facility] PRN Reason: Protocol Last Admin: 08/03/17 09:37 Dose: 0.5 mg Alprazolam (Xanax) 1 mg PO HS [facility] PRN Reason: Protocol Last Admin: 08/02/17 22:28 Dose: 1 mg Amylase (Pancrease 97883 U-5000 U-21624 U) 10,000 u PO WM [facility] Last Admin: 08/03/17 16:35 Dose: 10,000 u Enoxaparin Sodium (Lovenox) 90 mg SC Q12H [facility] PRN Reason: Protocol Last Admin: 08/03/17 08:31 Dose: 90 mg Hydromorphone HCl (Dilaudid) 0.5 mg IVP Q4H PRN PRN Reason: Pain, Mild (1-3) Last Admin: 08/03/17 16:35 Dose: 0.5 mg Ceftriaxone Sodium (Rocephin 2 Gm Ivpb) 2 gm in 100 mls @ 100 mls/hr IVPB DAILY [facility] PRN Reason: Protocol Stop: 08/11/17 10:01 Last Admin: 08/03/17 09:36 Dose: 100 mls/hr Insulin Human Regular (Humulin R Low) 0 units SC ACHS [facility] PRN Reason: Protocol Last Admin: 08/03/17 16:35 Dose: 1 units Loratadine (Claritin) 10 mg PO DAILY [facility] Last Admin: 08/03/17 09:37 Dose: 10 mg Metronidazole (Flagyl) 250 mg PO Q8H [facility] PRN Reason: Protocol Last Admin: 08/03/17 12:24 Dose: 250 mg Montelukast Sodium (Singulair) 10 mg PO HS [facility] Last Admin: 08/02/17 22:28 Dose: 10 mg Ondansetron HCl (Zofran Inj) 4 mg IVP Q4H PRN PRN Reason: Nausea/Vomiting Last Admin: 08/03/17 09:44 Dose: 4 mg Ondansetron HCl (Zofran Tab) 8 mg PO Q6 PRN PRN Reason: Nausea/Vomiting Pantoprazole Sodium (Protonix Ec Tab) 40 mg PO 0600 [facility] Last Admin: 08/03/17 05:10 Dose: 40 mg Potassium Chloride (Klor-Con 10) 10 meq PO BRK [facility] Last Admin: 08/03/17 08:31 Dose: 10 meq Pregabalin (Lyrica) 75 mg PO DAILY [facility] Last Admin: 08/03/17 09:37 Dose: 75 mg - Labs Labs: 08/03/17 06:03 08/03/17 06:03 PT 13.6 Seconds (9.9-11.8) H 07/30/17 06:42 INR 1.26 (0.93-1.08) H 07/30/17 06:42 APTT 29.2 Seconds (23.7-30.8) 07/30/17 06:42 - Constitutional Appears: Non-toxic, No Acute Distress - Respiratory Exam Respiratory Exam: NORMAL BREATHING PATTERN. absent: Respiratory Distress - Cardiovascular Exam Cardiovascular Exam: Tachycardia - GI/Abdominal Exam GI & Abdominal Exam: Soft, Tenderness (mild tenderness in epigastric area). absent: Distended, Firm, Guarding, Rebound - Neurological Exam Neurological Exam: Alert, Awake, Oriented x3 - Psychiatric Exam Psychiatric exam: Normal Affect, Normal Mood - Skin Skin Exam: Dry, Normal Color, Warm Assessment and Plan - Assessment and Plan (Free Text) Assessment: 66yo F with metastatic pancreatic cancer that is locally advanced. She was recently discharged from the hospital and is admitted again with sepsis. Blood cx: Klebsiella pneumoniae x2. CT abd/pelvis did not show any focal inflammatory area to explain the sepsis. Her port is suspected to be the cause. 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 Did not show any active bleeding. 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 Will switch to Heparin - Discussed plan with Dr. Mayur Galvan PGY-3 <[place] V - Last Filed: 08/03/17 23:42> Objective - Vital Signs/Intake and Output Vital Signs (last 24 hours): Temp Pulse Resp BP Pulse Ox 98.4 F 100 H 19 142/86 95 08/03/17 18:00 08/03/17 22:00 08/03/17 12:00 08/03/17 18:00 08/03/17 06:00 - Medications Medications: Current Medications Acetaminophen (Tylenol 325mg Tab) 650 mg PO Q4H PRN PRN Reason: Fever >100.5 F Last Admin: 08/01/17 12:32 Dose: 650 mg Albuterol/Ipratropium (Duoneb 3 Mg/0.5 Mg (3 Ml) Ud) 3 ml IH [id number] [facility] Last Admin: 08/03/17 19:23 Dose: Not Given Alprazolam (Xanax) 0.5 mg PO DAILY [facility] PRN Reason: Protocol Last Admin: 08/03/17 09:37 Dose: 0.5 mg Alprazolam (Xanax) 1 mg PO HS [facility] PRN Reason: Protocol Last Admin: 08/03/17 22:58 Dose: 1 mg Amylase (Pancrease 51447 U-5000 U-05823 U) 10,000 u PO WM [facility] Last Admin: 08/03/17 16:35 Dose: 10,000 u Heparin Sodium (Porcine) (Heparin) 5,000 units SC Q12 [facility] PRN Reason: Protocol Hydromorphone HCl (Dilaudid) 0.5 mg IVP Q4H PRN PRN Reason: Pain, Mild (1-3) Last Admin: 08/03/17 21:16 Dose: 0.5 mg Ceftriaxone Sodium (Rocephin 2 Gm Ivpb) 2 gm in 100 mls @ 100 mls/hr IVPB DAILY [facility] PRN Reason: Protocol Stop: 08/11/17 10:01 Last Admin: 08/03/17 09:36 Dose: 100 mls/hr Sodium Chloride (Sodium Chloride 0.9%) 1,000 mls @ 50 mls/hr IV .Q20H [facility] Last Admin: 08/03/17 23:01 Dose: 50 mls/hr Insulin Human Regular (Humulin R Low) 0 units SC ACHS [facility] PRN Reason: Protocol Last Admin: 08/03/17 21:46 Dose: Not Given Loratadine (Claritin) 10 mg PO DAILY [facility] Last Admin: 08/03/17 09:37 Dose: 10 mg Metronidazole (Flagyl) 250 mg PO Q8H [facility] PRN Reason: Protocol Last Admin: 08/03/17 21:16 Dose: 250 mg Montelukast Sodium (Singulair) 10 mg PO HS [facility] Last Admin: 08/03/17 21:16 Dose: 10 mg Ondansetron HCl (Zofran Inj) 4 mg IVP Q4H PRN PRN Reason: Nausea/Vomiting Last Admin: 08/03/17 09:44 Dose: 4 mg Ondansetron HCl (Zofran Tab) 8 mg PO Q6 PRN PRN Reason: Nausea/Vomiting Pantoprazole Sodium (Protonix Ec Tab) 40 mg PO 0600 [facility] Last Admin: 08/03/17 05:10 Dose: 40 mg Potassium Chloride (Klor-Con 10) 10 meq PO BRK [facility] Last Admin: 08/03/17 08:31 Dose: 10 meq Pregabalin (Lyrica) 75 mg PO DAILY [facility] Last Admin: 08/03/17 09:37 Dose: 75 mg - Labs Labs: 08/03/17 06:03 08/03/17 06:03 PT 13.6 Seconds (9.9-11.8) H 07/30/17 06:42 INR 1.26 (0.93-1.08) H 07/30/17 06:42 APTT 29.2 Seconds (23.7-30.8) 07/30/17 06:42 Attending/Attestation - Attestation I have personally seen and examined this patient.: Yes I have fully participated in the care of the patient.: Yes I have reviewed all pertinent clinical information, including history, physical exam and plan: Yes Notes (Text): This is an addendum to GI progress report dictated by Resident.The patient was seen and examined earlier. Medical records, lab studies, imagings were reviewed. Last 24 hours events reviewed. Agreed with the above treatment plan as outlined in Resident's notes the with the addition of the following 08/03/17 21:41
[2017-08-03] MEDS: Sodium Chloride 0.9% 1,000 ML IV SCH (23:01)
--- NOTE | 2017-08-04 01:35 | PN ---
SUBJECTIVE: The patient is a 66-year-old female. The patient is seen and examined on the bedside. Son was sitting on the bedside also. As per the patient, she had diarrhea whole last night and with diarrhea, she was passing blood. No vomiting. No nauseousness. No fever. No chills. No headaches. No dizziness. No chest pain. No palpitations. No swelling of the leg. No shortness of breath. PHYSICAL EXAMINATION: VITAL SIGNS: Temperature 97.1, pulse 102, respiratory rate 19, blood pressure 157/90, pulse oximetry 95%. HEENT: Head normocephalic, atraumatic. Eyes: PERRLA. Extraocular muscles intact. Conjunctivae clear. Nose patent. Mucous membrane moist. NECK: Supple. No carotid bruits, JVD or thyromegaly. CHEST: Bilaterally symmetrical. HEART: S1 and S2 positive. LUNGS: Clear to auscultation. ABDOMEN: Soft. Bowel sounds positive. No organomegaly. EXTREMITIES: No edema, no cyanosis. NEUROLOGIC: The patient is awake, alert, moving all 4 extremities. No focal deficits. MEDICATIONS: Tylenol, DuoNeb, Xanax, Pancrease, Lovenox, Dilaudid, Rocephin, insulin, Flagyl, Singulair, Zofran, Protonix, potassium and Lyrica. LABORATORY DATA: White blood cell 18.2, hemoglobin 9.1, hematocrit 27.1, platelets 380. Sodium 140, potassium 3.4, BUN 4, creatinine 0.6, glucose 110. ASSESSMENT AND PLAN: The patient is 66-year-old lady with leukocytosis, anemia, hypokalemia with metastatic pancreatic cancer that is locally advanced and has history of sepsis, blood culture with Klebsiella pneumoniae x2. The patient has episodes of bleeding. Gastroenterology recommended switching Lovenox to heparin due to bloody bowel movement. Gastrointestinal bleeding scan done that was negative. The patient is afebrile, mild tachycardiac, mild leukocytosis as compared to yesterday. The patient has chronic diarrhea, may be malabsorption secondary to exocrine pancreatic enzyme deficiency, continue pancreatic enzyme supplement. Clostridium difficile ordered. The patient has internal jugular vein thrombosis, on Lovenox, but we changed to heparin. Reviewed Dr. Merchant's note, ID notes. The patient has history of hepatitis C, chronic obstructive pulmonary disease, obstructive sleep apnea syndrome, obesity, history of noncompliance. Now, we will continue present treatment. We will continue gastrointestinal and deep venous thrombosis prophylaxis. We will repeat labs. We will follow up. Georgina Ferrara MD
[2017-08-04] MEDS: Albuterol-Ipratrop 3 mg / 0.5 (3 ml) UD IH SCH ×4 (02:14→19:30)
[2017-08-04] MEDS: HYDROmorphone 0.5 mg/0.5 ml ISec IVP PRN ×5 (02:41→22:20)
--- NOTE | 2017-08-04 02:59 | PN ---
DATE: 08/03/2017 REFERRING PHYSICIAN: Dr. Ferrara. SUBJECTIVE: She is lying in the bed comfortably, son at bedside. No headache. No rhinitis. No cough. No nausea. Mild abdominal pain. Has hematochezia today. No leg swelling. OBJECTIVE: GENERAL: In no acute distress. VITAL SIGNS: Temperature is 98, heart rate is 104, respiratory rate is 20, blood pressure 142/86, and pulse oximetry 95% on room air. HEENT: Moist mucous membrane. Crowded airway. NECK: Supple. No JVD. LUNGS: Had a fair airflow with rhonchi. HEART: S1 and S2. ABDOMEN: Soft, nontender. No organomegaly. EXTREMITIES: There is no edema. NEUROLOGICAL: Awake and alert. Follow simple commands. MEDICATIONS: She is on Claritin 10 mg daily, Dilaudid 5 mg q. 4 hours p.r.n., DuoNeb q. 6 hours, Flagyl 250 mg q. 8 hours, insulin coverage, potassium 10 mEq daily, Lovenox 90 mg subcutaneous q. 12 hours, Lyrica 75 mg daily, amylase and lipase 10,000 international units with meals, Protonix 40 mg daily, Rocephin 2 g daily, Singulair 10 mg daily, Tylenol p.r.n. basis, Xanax 0.5 mg daily and 1 mg at bedtime, Zofran p.r.n. basis. LABORATORY DATA: Shows hemoglobin 9.1, hematocrit 27.1, WBC 18.2, platelet count is 380. Sodium 140, potassium 3.4, chloride 109, bicarbonate 24, BUN 4, creatinine 0.6, glucose is 110, calcium is 7.7. A repeat blood culture from 08/01/2017, no growth. She had a GI scan done, shows no evidence of active gastrointestinal bleed. IMPRESSION AND PLAN: Resolving bacteremia, also have a deep venous thrombosis and internal jugular vein, probably both are catheter related; metastatic adenocarcinoma involving the liver, pancreatic and common bile duct requiring stent, also having liver involvement, lung involvement; hepatitis C; chronic obstructive lung disease; hypertension, pancreatic insufficiency, another issue started is the lower gastrointestinal bleed, bleeding scan is negative. Hemodynamically stable. Seen by gastroenterology. Pulmonary point of view, keep the head at 45 degrees, bronchodilator, pain management, antibiotics. She is on anticoagulation for deep venous thrombosis, which *------*. We will follow hemoglobin and hematocrit closely. Thank you and we will follow with you. Linnea Stephen MD
[2017-08-04] MEDS: Pantoprazole 40 mg EC Tab PO SCH (05:17)
[2017-08-04 06:25] LABS: INR 1.16 (0.93-1.08); PARTIAL THROMBOPLASTIN TIME 34.3 Seconds (23.7-30.8)
[2017-08-04 06:44] LABS: BASO # 0.05 K/mm3 (0.0-2.0); BASO % 0.3 % (0.0-3.0); EOS # 0.2 (0.0-0.7); EOS % 1.1 % (1.5-5.0); GRAN # 11.35 (1.4-6.5); GRAN % 74.5 % (50.0-68.0); HEMATOCRIT 24.8 % (36.0-48.0); LYMPH % 13.1 % (22.0-35.0); MEAN CELL VOLUME 80.8 fl (80.0-105.0); MEAN CORPUSCULAR HEMOGLOBIN 26.1 pg (25.0-35.0); MEAN CORPUSCULAR HGB CONC 32.3 g/dl (31.0-37.0); MEAN PLATELET VOLUME 8.9 fl (7.0-11.0); MONO # 1.7 (0.1-0.6); RED CELL DISTRIBUTION WIDTH 21.4 % (11.5-14.5); WHITE BLOOD COUNT 15.3 10^3/ul (4.5-11.0)
[2017-08-04 06:47] LABS: BLOOD UREA NITROGEN 4 mg/dL (7-21); CALCIUM 7.7 mg/dL (8.4-10.5); CARBON DIOXIDE 25 mmol/L (21-33); CHLORIDE 108 mmol/L (98-107); GFR AFRICAN-AMERICAN > 60; GLUCOSE,RANDOM 91 mg/dL (70-110); POTASSIUM 3.4 mmol/L (3.6-5.0); SODIUM 140 mmol/L (132-148)
[2017-08-04] MEDS: Potassium Chloride 10 mEq ER Tab PO SCH (08:00)
[2017-08-04] MEDS: Amylase/Lipase/Protease 5,000 U ECC PO SCH ×3 (08:00→16:58)
[2017-08-04] MEDS: Insulin Reg-LOW-Coverage SC SCH ×4 (08:37→21:45)
--- NOTE | 2017-08-04 09:35 | CP.PCM.PN ---
<Shalonda Galvan - Last Filed: 08/04/17 09:35> Subjective - Date & Time of Evaluation Date of Evaluation: 08/04/17 Time of Evaluation: 08:00 - Subjective Subjective: GI PROGRESS NOTE FOR DR. GREEN Patient seen and examined at bedside. She states that she feels better after the pain medication. She had blood clots around 5am with no stool. Prior to that , she had BM with bright red blood per the patient. She has some nausea but no vomiting. Objective - Vital Signs/Intake and Output Vital Signs (last 24 hours): Temp Pulse Resp BP Pulse Ox 98.5 F 99 H 20 120/64 99 08/04/17 06:00 08/04/17 06:00 08/04/17 06:00 08/04/17 06:00 08/04/17 06:00 Intake and Output: 08/04/17 08/04/17 06:59 18:59 Intake Total 780 Output Total 550 Balance 230 - Medications Medications: Current Medications Acetaminophen (Tylenol 325mg Tab) 650 mg PO Q4H PRN PRN Reason: Fever >100.5 F Last Admin: 08/01/17 12:32 Dose: 650 mg Albuterol/Ipratropium (Duoneb 3 Mg/0.5 Mg (3 Ml) Ud) 3 ml IH [id number] [facility] Last Admin: 08/04/17 07:32 Dose: Not Given Alprazolam (Xanax) 0.5 mg PO DAILY [facility] PRN Reason: Protocol Last Admin: 08/03/17 09:37 Dose: 0.5 mg Alprazolam (Xanax) 1 mg PO HS [facility] PRN Reason: Protocol Last Admin: 08/03/17 22:58 Dose: 1 mg Amylase (Pancrease 44167 U-5000 U-[id number] U) 10,000 u PO WM [facility] Last Admin: 08/04/17 08:00 Dose: 10,000 u Heparin Sodium (Porcine) (Heparin) 5,000 units SC Q12 [facility] PRN Reason: Protocol Hydromorphone HCl (Dilaudid) 0.5 mg IVP Q4H PRN PRN Reason: Pain, Mild (1-3) Last Admin: 08/04/17 08:00 Dose: 0.5 mg Ceftriaxone Sodium (Rocephin 2 Gm Ivpb) 2 gm in 100 mls @ 100 mls/hr IVPB DAILY [facility] PRN Reason: Protocol Stop: 08/11/17 10:01 Last Admin: 08/03/17 09:36 Dose: 100 mls/hr Sodium Chloride (Sodium Chloride 0.9%) 1,000 mls @ 50 mls/hr IV .Q20H [facility] Last Admin: 08/03/17 23:01 Dose: 50 mls/hr Insulin Human Regular (Humulin R Low) 0 units SC ACHS [facility] PRN Reason: Protocol Last Admin: 08/04/17 08:37 Dose: Not Given Loratadine (Claritin) 10 mg PO DAILY [facility] Last Admin: 08/03/17 09:37 Dose: 10 mg Metronidazole (Flagyl) 250 mg PO Q8H [facility] PRN Reason: Protocol Last Admin: 08/04/17 05:17 Dose: 250 mg Montelukast Sodium (Singulair) 10 mg PO HS [facility] Last Admin: 08/03/17 21:16 Dose: 10 mg Ondansetron HCl (Zofran Inj) 4 mg IVP Q4H PRN PRN Reason: Nausea/Vomiting Last Admin: 08/03/17 09:44 Dose: 4 mg Ondansetron HCl (Zofran Tab) 8 mg PO Q6 PRN PRN Reason: Nausea/Vomiting Last Admin: 08/04/17 08:07 Dose: 8 mg Pantoprazole Sodium (Protonix Ec Tab) 40 mg PO 0600 [facility] Last Admin: 08/04/17 05:17 Dose: 40 mg Potassium Chloride (Klor-Con 10) 10 meq PO BRK [facility] Last Admin: 08/04/17 08:00 Dose: 10 meq Pregabalin (Lyrica) 75 mg PO DAILY [facility] Last Admin: 08/03/17 09:37 Dose: 75 mg - Labs Labs: 08/04/17 06:07 08/04/17 06:07 PT 12.5 Seconds (9.9-11.8) H 08/04/17 06:07 INR 1.16 (0.93-1.08) H 08/04/17 06:07 APTT 34.3 Seconds (23.7-30.8) H 08/04/17 06:07 - Constitutional Appears: Non-toxic, No Acute Distress - Head Exam Head Exam: ATRAUMATIC, NORMAL INSPECTION - Eye Exam Eye Exam: EOMI, Normal appearance - Respiratory Exam Respiratory Exam: NORMAL BREATHING PATTERN. absent: Respiratory Distress - Cardiovascular Exam Cardiovascular Exam: +S1, +S2 - GI/Abdominal Exam GI & Abdominal Exam: Soft, Tenderness (tender in epigastric area). absent: Distended, Firm, Guarding, Rigid, Rebound - Neurological Exam Neurological Exam: Alert, Awake, Oriented x3 - Psychiatric Exam Psychiatric exam: Normal Affect, Normal Mood - Skin Skin Exam: Dry, Normal Color, Warm Assessment and Plan - Assessment and Plan (Free Text) Assessment: 66yo F with metastatic pancreatic cancer that is locally advanced. She was recently discharged from the hospital and is admitted again with sepsis. Blood cx: Klebsiella pneumoniae x2. Repeat blood cx from 08/[address] abd/pelvis did not show any focal inflammatory area to explain the sepsis. Her port is suspected to be the cause. Now has bloody bowel movements. 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 - Patient has internal jugular vein thrombosis. Was on Lovenox but switched to Heparin due to bleeding. - Discussed plan with Dr. Mayur Galvan PGY-3 <Thang Green V - Last Filed: 08/04/17 23:25> Objective - Vital Signs/Intake and Output Vital Signs (last 24 hours): Temp Pulse Resp BP Pulse Ox 98.7 F 106 H 20 139/85 99 08/04/17 23:08 08/04/17 23:08 08/04/17 23:08 08/04/17 23:08 08/04/17 06:00 Intake and Output: 08/04/17 08/05/17 18:59 06:59 Intake Total 480 0 Balance 480 0 - Medications Medications: Current Medications Acetaminophen (Tylenol 325mg Tab) 650 mg PO Q4H PRN PRN Reason: Fever >100.5 F Last Admin: 08/04/17 20:08 Dose: 650 mg Albuterol/Ipratropium (Duoneb 3 Mg/0.5 Mg (3 Ml) Ud) 3 ml IH [id number] [facility] Last Admin: 08/04/17 19:30 Dose: Not Given Alprazolam (Xanax) 0.5 mg PO DAILY [facility] PRN Reason: Protocol Last Admin: 08/04/17 10:05 Dose: 0.5 mg Alprazolam (Xanax) 1 mg PO HS [facility] PRN Reason: Protocol Last Admin: 08/04/17 21:00 Dose: 1 mg Amylase (Pancrease 62714 U-5000 U-[id number] U) 10,000 u PO WM [facility] Last Admin: 08/04/17 16:58 Dose: 10,000 u Heparin Sodium (Porcine) (Heparin) 5,000 units SC Q12 [facility] PRN Reason: Protocol Last Admin: 08/04/17 22:20 Dose: 5,000 units Hydromorphone HCl (Dilaudid) 0.5 mg IVP Q4H PRN PRN Reason: Pain, Mild (1-3) Last Admin: 08/04/17 22:20 Dose: 0.5 mg Ceftriaxone Sodium (Rocephin 2 Gm Ivpb) 2 gm in 100 mls @ 100 mls/hr IVPB DAILY [facility] PRN Reason: Protocol Stop: 08/11/17 10:01 Last Admin: 08/04/17 10:05 Dose: 100 mls/hr Sodium Chloride (Sodium Chloride 0.9%) 1,000 mls @ 50 mls/hr IV .Q20H [facility] Last Admin: 08/03/17 23:01 Dose: 50 mls/hr Insulin Human Regular (Humulin R Low) 0 units SC ACHS [facility] PRN Reason: Protocol Last Admin: 08/04/17 21:45 Dose: Not Given Loratadine (Claritin) 10 mg PO DAILY [facility] Last Admin: 08/04/17 10:05 Dose: 10 mg Metronidazole (Flagyl) 250 mg PO Q8H [facility] PRN Reason: Protocol Last Admin: 08/04/17 20:10 Dose: 250 mg Montelukast Sodium (Singulair) 10 mg PO HS [facility] Last Admin: 08/04/17 22:20 Dose: 10 mg Ondansetron HCl (Zofran Inj) 4 mg IVP Q4H PRN PRN Reason: Nausea/Vomiting Last Admin: 08/03/17 09:44 Dose: 4 mg Ondansetron HCl (Zofran Tab) 8 mg PO Q6 PRN PRN Reason: Nausea/Vomiting Last Admin: 08/04/17 08:07 Dose: 8 mg Pantoprazole Sodium (Protonix Ec Tab) 40 mg PO 0600 [facility] Last Admin: 08/04/17 05:17 Dose: 40 mg Potassium Chloride (Klor-Con 10) 10 meq PO BRK [facility] Last Admin: 08/04/17 08:00 Dose: 10 meq Pregabalin (Lyrica) 75 mg PO DAILY [facility] Last Admin: 08/04/17 10:05 Dose: 75 mg - Labs Labs: 08/04/17 06:07 08/04/17 06:07 PT 12.5 Seconds (9.9-11.8) H 08/04/17 06:07 INR 1.16 (0.93-1.08) H 08/04/17 06:07 APTT 34.3 Seconds (23.7-30.8) H 08/04/17 06:07 Attending/Attestation - Attestation I have personally seen and examined this patient.: Yes I have fully participated in the care of the patient.: Yes I have reviewed all pertinent clinical information, including history, physical exam and plan: Yes Notes (Text): This is an addendum to GI progress report dictated by Resident.The patient was seen and examined earlier. Medical records, lab studies, imagings were reviewed. Last 24 hours events reviewed. Agreed with the above treatment plan as outlined in Resident's notes the with the addition of the following 08/04/17 17:23
--- NOTE | 2017-08-04 09:52 | CP.PCM.PN ---
Subjective - Date & Time of Evaluation Date of Evaluation: 08/04/17 Time of Evaluation: 08:50 - Subjective Subjective: Comfortable, not in distress, afebrile, no pain at the mediport site, no fevers. Objective - Vital Signs/Intake and Output Vital Signs (last 24 hours): Temp Pulse Resp BP Pulse Ox 98.5 F 99 H 20 120/64 99 08/04/17 06:00 08/04/17 06:00 08/04/17 06:00 08/04/17 06:00 08/04/17 06:00 Intake and Output: 08/03/17 08/04/17 18:59 06:59 Intake Total 780 Output Total 550 Balance 230 - Medications Medications: Current Medications Acetaminophen (Tylenol 325mg Tab) 650 mg PO Q4H PRN PRN Reason: Fever >100.5 F Last Admin: 08/01/17 12:32 Dose: 650 mg Albuterol/Ipratropium (Duoneb 3 Mg/0.5 Mg (3 Ml) Ud) 3 ml IH [id number] [facility] Last Admin: 08/04/17 02:14 Dose: Not Given Alprazolam (Xanax) 0.5 mg PO DAILY [facility] PRN Reason: Protocol Last Admin: 08/03/17 09:37 Dose: 0.5 mg Alprazolam (Xanax) 1 mg PO HS [facility] PRN Reason: Protocol Last Admin: 08/03/17 22:58 Dose: 1 mg Amylase (Pancrease 60171 U-5000 U-90375 U) 10,000 u PO WM [facility] Last Admin: 08/03/17 16:35 Dose: 10,000 u Heparin Sodium (Porcine) (Heparin) 5,000 units SC Q12 [facility] PRN Reason: Protocol Hydromorphone HCl (Dilaudid) 0.5 mg IVP Q4H PRN PRN Reason: Pain, Mild (1-3) Last Admin: 08/04/17 02:41 Dose: 0.5 mg Ceftriaxone Sodium (Rocephin 2 Gm Ivpb) 2 gm in 100 mls @ 100 mls/hr IVPB DAILY [facility] PRN Reason: Protocol Stop: 08/11/17 10:01 Last Admin: 08/03/17 09:36 Dose: 100 mls/hr Sodium Chloride (Sodium Chloride 0.9%) 1,000 mls @ 50 mls/hr IV .Q20H [facility] Last Admin: 08/03/17 23:01 Dose: 50 mls/hr Insulin Human Regular (Humulin R Low) 0 units SC ACHS [facility] PRN Reason: Protocol Last Admin: 08/03/17 21:46 Dose: Not Given Loratadine (Claritin) 10 mg PO DAILY [facility] Last Admin: 08/03/17 09:37 Dose: 10 mg Metronidazole (Flagyl) 250 mg PO Q8H [facility] PRN Reason: Protocol Last Admin: 08/04/17 05:17 Dose: 250 mg Montelukast Sodium (Singulair) 10 mg PO HS [facility] Last Admin: 08/03/17 21:16 Dose: 10 mg Ondansetron HCl (Zofran Inj) 4 mg IVP Q4H PRN PRN Reason: Nausea/Vomiting Last Admin: 08/03/17 09:44 Dose: 4 mg Ondansetron HCl (Zofran Tab) 8 mg PO Q6 PRN PRN Reason: Nausea/Vomiting Pantoprazole Sodium (Protonix Ec Tab) 40 mg PO 0600 [facility] Last Admin: 08/04/17 05:17 Dose: 40 mg Potassium Chloride (Klor-Con 10) 10 meq PO BRK [facility] Last Admin: 08/03/17 08:31 Dose: 10 meq Pregabalin (Lyrica) 75 mg PO DAILY [facility] Last Admin: 08/03/17 09:37 Dose: 75 mg - Labs Labs: 08/03/17 06:03 08/03/17 06:03 PT 13.6 Seconds (9.9-11.8) H 07/30/17 06:42 INR 1.26 (0.93-1.08) H 07/30/17 06:42 APTT 29.2 Seconds (23.7-30.8) 07/30/17 06:42 - Constitutional Appears: Non-toxic, No Acute Distress - Head Exam Head Exam: NORMAL INSPECTION - ENT Exam ENT Exam: Mucous Membranes Moist - Neck Exam Neck Exam: absent: Meningismus - Respiratory Exam Respiratory Exam: Decreased Breath Sounds - Cardiovascular Exam Cardiovascular Exam: +S1, +S2 - GI/Abdominal Exam GI & Abdominal Exam: Soft. absent: Tenderness Assessment and Plan - Assessment and Plan (Free Text) Plan: Assessment sepsis due to Klebsiella bacteremia, R/O port infection (since there is no evidence of urinary tract or intra-abdominal infection) R/O biliary tract infection DVT of the vein associated with mediport S/P mediport placement chronic renal failure pancreatic cancer HTN history of Hepatitis C history of TIA COPD Plan continue Rocephin and Flagyl - repeat blood cx are negative so far; discussed with Dr. Loi Zamudio - will get HIDA scan first to make sure there is no biliary tract infection before deciding on the mediport; will continue to monitor clinically
[2017-08-04] MEDS: cefTRIAXone 2 GM IN NS 2 GM/100 ML BAG IVPB SCH (10:05)
--- NOTE | 2017-08-04 19:14 | PN ---
PULMONARY PROGRESS NOTE DATE: 08/04/2017 REFERRING PHYSICIAN: Dr. Ferrara. SUBJECTIVE: The patient is lying in the bed, sleepy, arousable, night was unremarkable, still have a stool with blood. No nausea. No vomiting. No leg pain or leg swelling. OBJECTIVE: GENERAL: In no acute distress. VITAL SIGNS: Temperature is 98, heart rate is 105, respiratory rate is 20, blood pressure 128/85 and pulse ox 99% on room air. HEENT: Moist mucous membranes. Crowded airway. NECK: Supple. No JVD. LUNGS: Had fair airflow with few rhonchi. HEART: S1 and S2. ABDOMEN: Soft and nontender. No organomegaly. EXTREMITIES: There is no edema. NEUROLOGICAL: Sleepy, arousable. Follow simple commands. MEDICATIONS: She is on Claritin 10 mg daily, Dilaudid 0.5 mg q. 4 hours p.r.n., DuoNeb q. 6 hours, Flagyl 250 mg q.i.d., heparin 5000 units subcutaneous q. 12 hours, insulin coverage, potassium 10 mEq daily, Lyrica 75 mg daily, amylase/pancreas 10,000 units with meals, Protonix 40 mg daily, Rocephin 2 g IV daily, Singulair 10 mg at bedtime, IV fluids normal saline 50 mL per hour, Tylenol p.r.n. basis, Xanax 0.5 mg daily, Xanax 1 mg at bedtime, Zofran p.r.n. basis, Lovenox is discontinued. LABORATORY DATA: Shows hemoglobin 8.0, hematocrit 24.8, WBC 15, platelets 414, INR 1.16, PTT 34. Sodium 140, potassium 3.4, chloride 108, bicarbonate is 25. BUN 4, creatinine 0.6, glucose is 91. Calcium 7.7. Repeat blood culture is no growth. Stool for C. diff is negative. IMPRESSION AND PLAN: Resolving bacteremia. Last blood culture, there is no growth. Internal jugular vein deep venous thrombosis, probably both are catheter related. Metastatic adenocarcinoma involving the liver, pancreas, common bile duct, pancreatic duct, and lungs. History of hepatitis C, chronic obstructive lung disease, hypertension, pancreatic insufficiency, now has a GI bleed. Lovenox is discontinued. May need to repeat ultrasound of the right internal jugular to assure the stability of the deep venous thrombosis. If not, may need to think about removing the catheter because of gastrointestinal bleed and the patient without anticoagulation. Need to find out source of gastrointestinal bleed. If it is something corrective, we should correct, because the patient is high risk for thromboembolic disease because of metastatic cancer and because of the catheter. So let us wait for the gastroenterology to make decision to find out where the bleeding is. We will make further recommendation after the followup labs in the morning including CBC and CMP. Thank you and we will follow with you. Linnea Stephen MD
--- NOTE | 2017-08-04 20:37 | PN ---
DATE: SUBJECTIVE: The patient is a 66-year-old female. The patient is seen and examined at the bedside, looking comfortable. No nausea or vomiting. Still having intractable diarrhea and today she was passing blood clots. No fever. No chills. No swelling of the leg. No dysuria. No shortness of breath. Cough is better. PHYSICAL EXAMINATION: VITAL SIGNS: Temperature 98, heart rate 105, respiratory rate 20, blood pressure 128/85, and pulse oximetry 99%. HEENT: Head normocephalic, atraumatic. Eyes: PERRLA. Extraocular muscles intact. Conjunctivae clear. Nose patent. Mucous membrane moist. NECK: Supple. No carotid bruits. No JVD or thyromegaly. CHEST: Bilaterally symmetrical. HEART: S1 and S2 positive. LUNGS: Clear to auscultation. ABDOMEN: Soft. Bowel sounds present. No organomegaly. EXTREMITIES: No edema. No cyanosis. NEUROLOGIC: The patient is awake and alert. Moving all 4 extremities. No focal deficits. MEDICATIONS: Claritin, Dilaudid, DuoNeb, Flagyl, heparin, potassium, Lyrica, amylase/pancreas, Protonix, Rocephin, Singulair, IV fluid, Tylenol, Xanax, and Lovenox is discontinued. LABORATORY DATA: Hemoglobin 8.0, hematocrit 24.8, white blood cell 15, and platelets 414. Sodium 140, potassium 3.4, BUN 4, creatinine 0.6, calcium 7.7. ASSESSMENT AND PLAN: Ms. Hortensia Love is 66 years old lady with resolving bacteria, got antibiotics, infectious disease is on the case. Last blood culture, there is no growth. Internal jugular vein deep venous thrombosis. The patient is on Lovenox may be catheter related. Metastatic adenocarcinoma involving the liver, pancreas, common bile duct, pancreatic duct, and lungs. History of hepatitis C positive, history of drug abuse, alcohol abuse, chronic obstructive lung disease, hypertension, pancreatic insufficiency. Now, the patient is still having diarrhea, getting clots of blood in the stool. Gastrointestinal bleeding scan done, it was negative, gastrointestinal on that case. Still we do not know the source of GI bleeding. The patient was on Lovenox, discontinued, started on heparin. We will follow up. Georgina Ferrara MD [facility] # [id number]
--- NOTE | 2017-08-04 21:14 | CP.PCM.PN ---
Subjective - Date & Time of Evaluation Date of Evaluation: 08/04/17 Time of Evaluation: 21:09 - Subjective Subjective: S:It was requested to obtain a consent for blood transfusion. She has no complaints now. Pertinent medical record was reviewed. O: Last Vital Signs 3 Temp 98.5 F 08/04/17 17:47 Pulse 103 H 08/04/17 18:00 Resp 20 08/04/17 17:47 BP 120/90 08/04/17 17:47 Pulse Ox 99 08/04/17 06:00 Awake , alert, not in distress. LUNGS:Normal breathing pattern. A:Anemia. P: A consent for blood transfusion was obtained after explaining in detail about blood transfusion. Witnessed by her primary nurse. Objective - Vital Signs/Intake and Output Vital Signs (last 24 hours): Temp Pulse Resp BP Pulse Ox 98.5 F 103 H 20 120/90 99 08/04/17 17:47 08/04/17 18:00 08/04/17 17:47 08/04/17 17:47 08/04/17 06:00 Intake and Output: 08/04/17 08/05/17 18:59 06:59 Intake Total 480 Balance 480 - Medications Medications: Current Medications Acetaminophen (Tylenol 325mg Tab) 650 mg PO Q4H PRN PRN Reason: Fever >100.5 F Last Admin: 08/04/17 20:08 Dose: 650 mg Albuterol/Ipratropium (Duoneb 3 Mg/0.5 Mg (3 Ml) Ud) 3 ml IH [id number] [facility] Last Admin: 08/04/17 19:30 Dose: Not Given Alprazolam (Xanax) 0.5 mg PO DAILY [facility] PRN Reason: Protocol Last Admin: 08/04/17 10:05 Dose: 0.5 mg Alprazolam (Xanax) 1 mg PO HS [facility] PRN Reason: Protocol Last Admin: 08/04/17 21:00 Dose: 1 mg Amylase (Pancrease 61585 U-5000 U-77049 U) 10,000 u PO WM [facility] Last Admin: 08/04/17 16:58 Dose: 10,000 u Heparin Sodium (Porcine) (Heparin) 5,000 units SC Q12 [facility] PRN Reason: Protocol Last Admin: 08/04/17 10:05 Dose: 5,000 units Hydromorphone HCl (Dilaudid) 0.5 mg IVP Q4H PRN PRN Reason: Pain, Mild (1-3) Last Admin: 08/04/17 17:01 Dose: 0.5 mg Ceftriaxone Sodium (Rocephin 2 Gm Ivpb) 2 gm in 100 mls @ 100 mls/hr IVPB DAILY [facility] PRN Reason: Protocol Stop: 08/11/17 10:01 Last Admin: 08/04/17 10:05 Dose: 100 mls/hr Sodium Chloride (Sodium Chloride 0.9%) 1,000 mls @ 50 mls/hr IV .Q20H [facility] Last Admin: 08/03/17 23:01 Dose: 50 mls/hr Insulin Human Regular (Humulin R Low) 0 units SC ACHS [facility] PRN Reason: Protocol Last Admin: 08/04/17 16:57 Dose: 2 units Loratadine (Claritin) 10 mg PO DAILY [facility] Last Admin: 08/04/17 10:05 Dose: 10 mg Metronidazole (Flagyl) 250 mg PO Q8H [facility] PRN Reason: Protocol Last Admin: 08/04/17 20:10 Dose: 250 mg Montelukast Sodium (Singulair) 10 mg PO HS [facility] Last Admin: 08/03/17 21:16 Dose: 10 mg Ondansetron HCl (Zofran Inj) 4 mg IVP Q4H PRN PRN Reason: Nausea/Vomiting Last Admin: 08/03/17 09:44 Dose: 4 mg Ondansetron HCl (Zofran Tab) 8 mg PO Q6 PRN PRN Reason: Nausea/Vomiting Last Admin: 08/04/17 08:07 Dose: 8 mg Pantoprazole Sodium (Protonix Ec Tab) 40 mg PO 0600 [facility] Last Admin: 08/04/17 05:17 Dose: 40 mg Potassium Chloride (Klor-Con 10) 10 meq PO BRK [facility] Last Admin: 08/04/17 08:00 Dose: 10 meq Pregabalin (Lyrica) 75 mg PO DAILY [facility] Last Admin: 08/04/17 10:05 Dose: 75 mg - Labs Labs: 08/04/17 06:07 08/04/17 06:07 PT 12.5 Seconds (9.9-11.8) H 08/04/17 06:07 INR 1.16 (0.93-1.08) H 08/04/17 06:07 APTT 34.3 Seconds (23.7-30.8) H 08/04/17 06:07
[2017-08-04] MEDS: Sodium Chloride 0.9% 1,000 ML IV SCH (22:30)
[2017-08-05] MEDS: Albuterol-Ipratrop 3 mg / 0.5 (3 ml) UD IH SCH ×4 (02:34→20:06)
[2017-08-05] MEDS: HYDROmorphone 0.5 mg/0.5 ml ISec IVP PRN ×5 (02:51→19:37)
[2017-08-05] MEDS: Pantoprazole 40 mg EC Tab PO SCH (05:04)
[2017-08-05] MEDS: Amylase/Lipase/Protease 5,000 U ECC PO SCH ×3 (08:09→16:19)
[2017-08-05] MEDS: Insulin Reg-LOW-Coverage SC SCH ×4 (08:09→22:30)
[2017-08-05] MEDS: Potassium Chloride 10 mEq ER Tab PO SCH (08:09)
[2017-08-05] MEDS: cefTRIAXone 2 GM IN NS 2 GM/100 ML BAG IVPB SCH (12:01)
[2017-08-05 12:02] LABS: BASO # 0.07 K/mm3 (0.0-2.0); BASO % 0.5 % (0.0-3.0); EOS # 0.1 (0.0-0.7); EOS % 0.9 % (1.5-5.0); GRAN # 11.56 (1.4-6.5); GRAN % 75.4 % (50.0-68.0); HEMATOCRIT 29.5 % (36.0-48.0); LYMPH # 2.3 (1.2-3.4); MEAN CELL VOLUME 82.6 fl (80.0-105.0); MEAN CORPUSCULAR HEMOGLOBIN 27.2 pg (25.0-35.0); MEAN CORPUSCULAR HGB CONC 32.9 g/dl (31.0-37.0); MEAN PLATELET VOLUME 8.6 fl (7.0-11.0); MONO # 1.3 (0.1-0.6); MONO % 8.2 % (1.0-6.0); RED CELL DISTRIBUTION WIDTH 20.4 % (11.5-14.5); WHITE BLOOD COUNT 15.3 10^3/ul (4.5-11.0)
[2017-08-05 12:21] LABS: ALB/GLOB RATIO 0.6 (1.1-1.8); ALKALINE PHOSPHATASE 148 U/L (38-126); ALT/SGPT 98 U/L (7-56); AST/SGOT 86 U/L (14-36); BILIRUBIN,TOTAL 0.3 mg/dL (0.2-1.3); BLOOD UREA NITROGEN 4 mg/dL (7-21); CALCIUM 7.9 mg/dL (8.4-10.5); CARBON DIOXIDE 28 mmol/L (21-33); CHLORIDE 107 mmol/L (98-107); GFR AFRICAN-AMERICAN > 60; GLUCOSE,RANDOM 135 mg/dL (70-110); POTASSIUM 3.6 mmol/L (3.6-5.0); SODIUM 141 mmol/L (132-148); TOTAL PROTEIN 5.6 g/dL (5.8-8.3)
--- NOTE | 2017-08-05 12:34 | CP.PCM.PN ---
Subjective - Date & Time of Evaluation Date of Evaluation: 08/05/17 Time of Evaluation: 09:50 - Subjective Subjective: Comfortable, afebrile, not in distress. Objective - Vital Signs/Intake and Output Vital Signs (last 24 hours): Temp Pulse Resp BP Pulse Ox 98.5 F 90 20 139/91 H 97 08/05/17 06:00 08/05/17 06:00 08/05/17 06:00 08/05/17 06:00 08/05/17 06:00 Intake and Output: 08/04/17 08/05/17 18:59 06:59 Intake Total 480 1979 Output Total 1400 Balance 480 579 - Medications Medications: Current Medications Acetaminophen (Tylenol 325mg Tab) 650 mg PO Q4H PRN PRN Reason: Fever >100.5 F Last Admin: 08/05/17 01:15 Dose: 650 mg Albuterol/Ipratropium (Duoneb 3 Mg/0.5 Mg (3 Ml) Ud) 3 ml IH [id number] [facility] Last Admin: 08/05/17 02:34 Dose: Not Given Alprazolam (Xanax) 0.5 mg PO DAILY [facility] PRN Reason: Protocol Last Admin: 08/04/17 10:05 Dose: 0.5 mg Alprazolam (Xanax) 1 mg PO HS [facility] PRN Reason: Protocol Last Admin: 08/04/17 21:00 Dose: 1 mg Amylase (Pancrease 93958 U-5000 U-[id number] U) 10,000 u PO WM [facility] Last Admin: 08/04/17 16:58 Dose: 10,000 u Heparin Sodium (Porcine) (Heparin) 5,000 units SC Q12 [facility] PRN Reason: Protocol Last Admin: 08/04/17 22:20 Dose: 5,000 units Hydromorphone HCl (Dilaudid) 0.5 mg IVP Q4H PRN PRN Reason: Pain, Mild (1-3) Last Admin: 08/05/17 02:51 Dose: 0.5 mg Ceftriaxone Sodium (Rocephin 2 Gm Ivpb) 2 gm in 100 mls @ 100 mls/hr IVPB DAILY [facility] PRN Reason: Protocol Stop: 08/11/17 10:01 Last Admin: 08/04/17 10:05 Dose: 100 mls/hr Sodium Chloride (Sodium Chloride 0.9%) 1,000 mls @ 50 mls/hr IV .Q20H [facility] Last Admin: 08/04/17 22:30 Dose: 50 mls/hr Insulin Human Regular (Humulin R Low) 0 units SC ACHS [facility] PRN Reason: Protocol Last Admin: 08/04/17 21:45 Dose: Not Given Loratadine (Claritin) 10 mg PO DAILY [facility] Last Admin: 08/04/17 10:05 Dose: 10 mg Metronidazole (Flagyl) 250 mg PO Q8H [facility] PRN Reason: Protocol Last Admin: 08/05/17 05:04 Dose: 250 mg Montelukast Sodium (Singulair) 10 mg PO HS [facility] Last Admin: 08/04/17 22:20 Dose: 10 mg Ondansetron HCl (Zofran Inj) 4 mg IVP Q4H PRN PRN Reason: Nausea/Vomiting Last Admin: 08/05/17 01:08 Dose: 4 mg Ondansetron HCl (Zofran Tab) 8 mg PO Q6 PRN PRN Reason: Nausea/Vomiting Last Admin: 08/04/17 08:07 Dose: 8 mg Pantoprazole Sodium (Protonix Ec Tab) 40 mg PO 0600 [facility] Last Admin: 08/05/17 05:04 Dose: 40 mg Potassium Chloride (Klor-Con 10) 10 meq PO BRK [facility] Last Admin: 08/04/17 08:00 Dose: 10 meq Pregabalin (Lyrica) 75 mg PO DAILY [facility] Last Admin: 08/04/17 10:05 Dose: 75 mg - Labs Labs: 08/04/17 06:07 08/04/17 06:07 PT 12.5 Seconds (9.9-11.8) H 08/04/17 06:07 INR 1.16 (0.93-1.08) H 08/04/17 06:07 APTT 34.3 Seconds (23.7-30.8) H 08/04/17 06:07 - Constitutional Appears: Non-toxic, No Acute Distress - Head Exam Head Exam: NORMAL INSPECTION - ENT Exam ENT Exam: Mucous Membranes Moist - Neck Exam Neck Exam: absent: Meningismus - Respiratory Exam Respiratory Exam: Decreased Breath Sounds Additional comments: right anterior chest wall mediport in place - Cardiovascular Exam Cardiovascular Exam: +S1, +S2 - GI/Abdominal Exam GI & Abdominal Exam: Soft. absent: Tenderness Assessment and Plan - Assessment and Plan (Free Text) Plan: Assessment sepsis due to Klebsiella bacteremia, R/O port infection (since there is no evidence of urinary tract or intra-abdominal infection) R/O biliary tract infection DVT of the vein associated with mediport S/P mediport placement chronic renal failure pancreatic cancer HTN history of Hepatitis C history of TIA COPD Plan continue Rocephin and Flagyl - repeat blood cx are negative so far; discussed with Dr. oLi Zamudio - follow up HIDA scan first to make sure there is no biliary tract infection before deciding on the mediport; will also repeat blood cx from the mediport will continue to monitor clinically
--- NOTE | 2017-08-05 12:59 | NM ---
PROCEDURE: Nuclear Medicine Hepatobiliary Scan HISTORY: Panc CA. biliary stent. ? stent patency COMPARISON: 07/31/2017 CT abdomen and pelvis. TECHNIQUE: 5.8 mCi of technetium 99m Mebrofenin was administered intravenously. Planar images of the abdomen were obtained at 5 min intervals to 60 mins. Delayed images were also obtained. FINDINGS: LIVER: Timely and homogenous uptake. COMMON BILE DUCT: identified at 5 mins. GALLBLADDER: identified at 20 mins. SMALL BOWEL: Identified at 15 mins. IMPRESSION: Normal Hepatobiliary Scan. The cystic duct is patent. Patent common bile duct with prompt excretion of radionuclide into the bile duct and small bowel.
--- NOTE | 2017-08-05 14:31 | CP.PCM.PN ---
<Amelia Wright - Last Filed: 08/05/17 16:10> Subjective - Date & Time of Evaluation Date of Evaluation: 08/05/17 Time of Evaluation: 11:45 - Subjective Subjective: Seen and examined at the bedside earlier today, the chart was reviewed. Patient went down for HIDA scan this morning. Patient status post 1 unit of packed RBCs yesterday. No further blood per rectum. Patient denies nausea, vomiting, still has abdominal pain but comfortable at this time. Tolerating oral intake. Having soft BMs. No SO Hartman chest pain. Objective - Vital Signs/Intake and Output Vital Signs (last 24 hours): Temp Pulse Resp BP Pulse Ox 97.7 F 90 20 146/81 97 08/05/17 12:00 08/05/17 12:00 08/05/17 12:00 08/05/17 12:00 08/05/17 06:00 Intake and Output: 08/05/17 08/05/17 06:59 18:59 Intake Total 1979 Output Total 1400 Balance 579 - Medications Medications: Current Medications Acetaminophen (Tylenol 325mg Tab) 650 mg PO Q4H PRN PRN Reason: Fever >100.5 F Last Admin: 08/05/17 06:54 Dose: 650 mg Albuterol/Ipratropium (Duoneb 3 Mg/0.5 Mg (3 Ml) Ud) 3 ml IH [id number] [facility] Last Admin: 08/05/17 13:08 Dose: Not Given Alprazolam (Xanax) 0.5 mg PO DAILY [facility] PRN Reason: Protocol Last Admin: 08/05/17 09:13 Dose: 0.5 mg Alprazolam (Xanax) 1 mg PO HS [facility] PRN Reason: Protocol Last Admin: 08/04/17 21:00 Dose: 1 mg Amylase (Pancrease 74772 U-5000 U-47179 U) 10,000 u PO WM [facility] Last Admin: 08/05/17 12:01 Dose: 10,000 u Heparin Sodium (Porcine) (Heparin) 5,000 units SC Q12 [facility] PRN Reason: Protocol Last Admin: 08/05/17 09:12 Dose: 5,000 units Hydromorphone HCl (Dilaudid) 0.5 mg IVP Q4H PRN PRN Reason: Pain, Mild (1-3) Last Admin: 08/05/17 11:59 Dose: 0.5 mg Ceftriaxone Sodium (Rocephin 2 Gm Ivpb) 2 gm in 100 mls @ 100 mls/hr IVPB DAILY [facility] PRN Reason: Protocol Stop: 08/11/17 10:01 Last Admin: 08/05/17 12:01 Dose: 100 mls/hr Sodium Chloride (Sodium Chloride 0.9%) 1,000 mls @ 50 mls/hr IV .Q20H [facility] Last Admin: 08/04/17 22:30 Dose: 50 mls/hr Insulin Human Regular (Humulin R Low) 0 units SC ACHS [facility] PRN Reason: Protocol Last Admin: 08/05/17 12:01 Dose: 1 units Loratadine (Claritin) 10 mg PO DAILY [facility] Last Admin: 08/05/17 09:13 Dose: 10 mg Metronidazole (Flagyl) 250 mg PO Q8H [facility] PRN Reason: Protocol Last Admin: 08/05/17 12:01 Dose: 250 mg Montelukast Sodium (Singulair) 10 mg PO HS [facility] Last Admin: 08/04/17 22:20 Dose: 10 mg Ondansetron HCl (Zofran Inj) 4 mg IVP Q4H PRN PRN Reason: Nausea/Vomiting Last Admin: 08/05/17 08:38 Dose: 4 mg Ondansetron HCl (Zofran Tab) 8 mg PO Q6 PRN PRN Reason: Nausea/Vomiting Last Admin: 08/04/17 08:07 Dose: 8 mg Pantoprazole Sodium (Protonix Ec Tab) 40 mg PO 0600 [facility] Last Admin: 08/05/17 05:04 Dose: 40 mg Potassium Chloride (Klor-Con 10) 10 meq PO BRK [facility] Last Admin: 08/05/17 08:09 Dose: 10 meq Pregabalin (Lyrica) 75 mg PO DAILY [facility] Last Admin: 08/05/17 09:13 Dose: 75 mg - Labs Labs: 08/05/17 11:30 08/05/17 11:40 PT 12.5 Seconds (9.9-11.8) H 08/04/17 06:07 INR 1.16 (0.93-1.08) H 08/04/17 06:07 APTT 34.3 Seconds (23.7-30.8) H 08/04/17 06:07 - Constitutional Appears: No Acute Distress - Eye Exam Eye Exam: Normal appearance. absent: Scleral icterus - ENT Exam ENT Exam: Mucous Membranes Moist - Neck Exam Neck Exam: Normal Inspection - Respiratory Exam Respiratory Exam: NORMAL BREATHING PATTERN. absent: Respiratory Distress - Cardiovascular Exam Cardiovascular Exam: +S1, +S2 - GI/Abdominal Exam GI & Abdominal Exam: Soft, Tenderness, Normal Bowel Sounds. absent: Guarding, Organomegaly, Rebound - Extremities Exam Extremities Exam: Normal Capillary Refill, Pedal Edema. absent: Calf Tenderness - Neurological Exam Neurological Exam: Alert, Awake, Oriented x3 Assessment and Plan - Assessment and Plan (Free Text) Assessment: Assessment: Metastatic pancreatic cancer Sepsis:blood cultures positive Klebsiella pneumonia a, repeat blood cultures Chronic diarrhea likely secondary to pancreatic insufficiency Blood per rectum, bleeding scan negative Anemia status post packed RBC Internal jugular vein thrombosis Plan: follow up HIDA scan Continue IV antibiotics on ceftriaxone On oral Flagyl Diet as tolerated Continue pancreatic enzymes On heparin Monitor H&H and for overt GI bleed Seen and discussed with Dr. Merchant. ADDENDDUM: HIDA SCAN:Normal scan, patent cystic duct. <Thang Merchant V - Last Filed: 08/05/17 23:14> Objective - Vital Signs/Intake and Output Vital Signs (last 24 hours): Temp Pulse Resp BP Pulse Ox 98.6 F 106 H 20 147/95 H 97 08/05/17 17:49 08/05/17 18:00 08/05/17 17:49 08/05/17 17:49 08/05/17 06:00 - Medications Medications: Current Medications Acetaminophen (Tylenol 325mg Tab) 650 mg PO Q4H PRN PRN Reason: Fever >100.5 F Last Admin: 08/05/17 06:54 Dose: 650 mg Albuterol/Ipratropium (Duoneb 3 Mg/0.5 Mg (3 Ml) Ud) 3 ml IH [id number] [facility] Last Admin: 08/05/17 20:06 Dose: Not Given Alprazolam (Xanax) 0.5 mg PO DAILY [facility] PRN Reason: Protocol Last Admin: 08/05/17 09:13 Dose: 0.5 mg Alprazolam (Xanax) 1 mg PO HS [facility] PRN Reason: Protocol Last Admin: 08/05/17 21:20 Dose: 1 mg Amylase (Pancrease 03227 U-5000 U-90654 U) 10,000 u PO WM [facility] Last Admin: 08/05/17 16:19 Dose: 10,000 u Heparin Sodium (Porcine) (Heparin) 5,000 units SC Q12 [facility] PRN Reason: Protocol Last Admin: 08/05/17 21:20 Dose: 5,000 units Hydromorphone HCl (Dilaudid) 0.5 mg IVP Q4H PRN PRN Reason: Pain, Mild (1-3) Last Admin: 08/05/17 19:37 Dose: 0.5 mg Ceftriaxone Sodium (Rocephin 2 Gm Ivpb) 2 gm in 100 mls @ 100 mls/hr IVPB DAILY [facility] PRN Reason: Protocol Stop: 08/11/17 10:01 Last Admin: 08/05/17 12:01 Dose: 100 mls/hr Sodium Chloride (Sodium Chloride 0.9%) 1,000 mls @ 50 mls/hr IV .Q20H [facility] Last Admin: 08/05/17 14:54 Dose: Not Given Insulin Human Regular (Humulin R Low) 0 units SC ACHS [facility] PRN Reason: Protocol Last Admin: 08/05/17 16:52 Dose: 1 units Loratadine (Claritin) 10 mg PO DAILY [facility] Last Admin: 08/05/17 09:13 Dose: 10 mg Metronidazole (Flagyl) 250 mg PO Q8H [facility] PRN Reason: Protocol Last Admin: 08/05/17 19:37 Dose: 250 mg Montelukast Sodium (Singulair) 10 mg PO HS [facility] Last Admin: 08/05/17 21:20 Dose: 10 mg Pantoprazole Sodium (Protonix Ec Tab) 40 mg PO 0600 [facility] Last Admin: 08/05/17 05:04 Dose: 40 mg Potassium Chloride (Klor-Con 10) 10 meq PO BRK [facility] Last Admin: 08/05/17 08:09 Dose: 10 meq Pregabalin (Lyrica) 75 mg PO DAILY [facility] Last Admin: 08/05/17 09:13 Dose: 75 mg - Labs Labs: 08/05/17 11:30 08/05/17 11:40 PT 12.5 Seconds (9.9-11.8) H 08/04/17 06:07 INR 1.16 (0.93-1.08) H 08/04/17 06:07 APTT 34.3 Seconds (23.7-30.8) H 08/04/17 06:07 Attending/Attestation - Attestation I have personally seen and examined this patient.: Yes I have fully participated in the care of the patient.: Yes I have reviewed all pertinent clinical information, including history, physical exam and plan: Yes
[2017-08-05] MEDS: Sodium Chloride 0.9% 1,000 ML IV SCH (14:54)
--- NOTE | 2017-08-05 20:46 | PN ---
PULMONARY PROGRESS NOTE DATE: 08/05/2017 REFERRING PHYSICIAN: Georgina Ferrara MD SUBJECTIVE: The patient is sitting up at the side of the bed having dinner, feels much better today. No headache, no rhinitis, no cough, and no sputum production. Mild abdominal pain. No leg pain or leg swelling. No more hematochezia. OBJECTIVE GENERAL: In no acute distress. VITAL SIGNS: Temperature 98, heart rate is 106, respiratory rate is 18, blood pressure 147/95, pulse ox 97% on room air. HEENT: Moist mucus membrane. Crowded airway. NECK: Supple. No JVD. LUNGS: Had fair airflow with few rhonchi. HEART: S1 and S2. ABDOMEN: Soft, mild epigastric tenderness. EXTREMITIES: There is no edema. NEUROLOGICAL: Awake and alert. Follows simple command. MEDICATIONS: She is on Claritin 10 mg daily, Dilaudid 5 mg IV q. 4 hours p.r.n., DuoNeb q. 6 hours, Flagyl 250 mg q. 8 hours, heparin 5000 units subcu q.12 hours, insulin coverage, potassium 10 mEq daily, Lyrica 75 mg daily, amylase/pancreas enzymes 10,000 units with meals, Protonix 40 mg daily, Rocephin 2 g IV daily, Singulair 10 mg daily, IV fluid normal saline 50 mL/hour, Tylenol p.r.n. basis, Xanax 0.5 mg daily and 1 mg at bedtime,and Zofran p.r.n. basis. Medication reviewed and noted. LABORATORY DATA: Hemoglobin 9.7, hematocrit 29.5, WBC 15.3, platelet count is 325. Sodium 141, potassium 3.6, chloride 107, bicarbonate 28, BUN 4, creatinine 0.6, glucose is 179, calcium is 7.9, total bilirubin 0.3, AST 86, ALT 98, alkaline phosphorus 148, albumin is 2.0. She has a HIDA scan done, which was unremarkable. IMPRESSION AND PLAN: Resolving bacteremia, last blood culture so far is negative. Internal jugular vein thrombosis, metastatic adenocarcinoma involving the liver, head of pancreatic, and lungs, ductal obstruction requiring stent, pancreatic insufficiency, diarrhea, hepatitis C, chronic obstructive lung disease; hypertension, gastrointestinal bleed, bleeding scan was negative. She required one unit of packed RBC. Her anticoagulation was stopped. I spoke to the patient about relation with DVT, anticoagulation, and bleeding that she has a high risk of thrombosis without anticoagulation and she agreed with the plan to keep off the anticoagulation for now. Continue pancreas supplement, pain medication, antibiotics, gastric prophylaxis, sleep apnea precaution, and SCD to lower extremity. Thank you and we will follow with you. Linnea Stephen MD
[2017-08-06] MEDS: HYDROmorphone 0.5 mg/0.5 ml ISec IVP PRN ×4 (01:55→21:07)
[2017-08-06] MEDS: Albuterol-Ipratrop 3 mg / 0.5 (3 ml) UD IH SCH ×4 (01:59→19:54)
[2017-08-06] MEDS: Pantoprazole 40 mg EC Tab PO SCH (05:09)
[2017-08-06] MEDS: Insulin Reg-LOW-Coverage SC SCH ×4 (07:30→21:13)
--- NOTE | 2017-08-06 08:39 | PN ---
DATE: 08/05/2017 SUBJECTIVE: The patient is a 66-year-old female. The patient seen and examined on the bedside. Looking comfortable. No nausea, vomiting or diarrhea. No hematuria or hematochezia. No swelling of the leg. No chest pain. No palpitation. Diarrhea is better. No blood in the stool. As per the patient, cough is better, shortness of breath is better. PHYSICAL EXAMINATION: VITAL SIGNS: Temperature 98, heart rate 106, respiratory rate 18, blood pressure 147/95 and pulse oximetry 97% on room air. HEENT: Head normocephalic and atraumatic. Eyes; PERRLA. Extraocular muscles intact. Conjunctivae clear. Nose patent. Mucous membrane moist. NECK: Supple. No carotid bruit. No JVD or thyromegaly. CHEST: Bilaterally symmetrical. HEART: S1 and S2 positive. LUNGS: Clear to auscultation. ABDOMEN: Soft. Bowel sounds present. EXTREMITIES: No edema. No cyanosis. NEUROLOGIC: The patient is awake and alert, follows simple commands. MEDICATIONS: Claritin, Dilaudid, DuoNeb, Flagyl, heparin, insulin, potassium, Lyrica, amylase/Pancrease , Protonix, Rocephin, Singulair, IV fluid, Tylenol, Xanax and Zofran. LABORATORY DATA: Hemoglobin 9.7, hematocrit 29.5, white blood cells 15.3 and platelets 325. Sodium noted , potassium 3.6, BUN 4, creatinine 0.6 and glucose 179. AST 86 and ALT 98. HIDA scan done that was unremarkable. ASSESSMENT AND PLAN: Ms. Hortensia Love has resolving bacteremia. Last blood culture so far is negative, insulin-dependent diabetes mellitus, internal jugular vein thrombosis, getting heparin metastatic adenocarcinoma involving the liver, lungs, head of pancreas, ductal obstruction requiring stent, now pancreatic insufficiency, having diarrhea. Pancrease is helping. Hepatitis C positive. Chronic lung disease; hypertension; gastroesophageal reflux disease, bleeding scan negative; history of GI bleeding, but right now do not have bleeding; history of blood transfusion. Reviewed Dr. Stephen's note, had length of time discussion with the patient. Continue Pancrease supplement, pain management, antibiotics, gastric prophylaxis, sleep apnea precaution, sequential compression devices for lower extremities. We will follow up. Georgina Ferrara MD [facility]
[2017-08-06] MEDS: Potassium Chloride 10 mEq ER Tab PO SCH (08:40)
[2017-08-06] MEDS: Amylase/Lipase/Protease 5,000 U ECC PO SCH ×3 (08:40→17:19)
[2017-08-06] MEDS: cefTRIAXone 2 GM IN NS 2 GM/100 ML BAG IVPB SCH (09:36)
--- NOTE | 2017-08-06 10:05 | CP.PCM.PN ---
Subjective - Date & Time of Evaluation Date of Evaluation: 08/06/17 Time of Evaluation: 08:30 - Subjective Subjective: Has some nausea, no fevers, no diarrhea. Objective - Vital Signs/Intake and Output Vital Signs (last 24 hours): Temp Pulse Resp BP Pulse Ox 97.3 F L 94 H 20 143/87 98 08/06/17 05:50 08/06/17 05:50 08/06/17 05:50 08/06/17 05:50 08/06/17 05:50 - Medications Medications: Current Medications Acetaminophen (Tylenol 325mg Tab) 650 mg PO Q4H PRN PRN Reason: Fever >100.5 F Last Admin: 08/06/17 05:12 Dose: 650 mg Albuterol/Ipratropium (Duoneb 3 Mg/0.5 Mg (3 Ml) Ud) 3 ml IH [id number] [facility] Last Admin: 08/06/17 01:59 Dose: Not Given Alprazolam (Xanax) 0.5 mg PO DAILY [facility] PRN Reason: Protocol Last Admin: 08/05/17 09:13 Dose: 0.5 mg Alprazolam (Xanax) 1 mg PO HS [facility] PRN Reason: Protocol Last Admin: 08/05/17 21:20 Dose: 1 mg Amylase (Pancrease 17421 U-5000 U-[id number] U) 10,000 u PO WM [facility] Last Admin: 08/05/17 16:19 Dose: 10,000 u Heparin Sodium (Porcine) (Heparin) 5,000 units SC Q12 [facility] PRN Reason: Protocol Last Admin: 08/05/17 21:20 Dose: 5,000 units Hydromorphone HCl (Dilaudid) 0.5 mg IVP Q4H PRN PRN Reason: Pain, Mild (1-3) Last Admin: 08/06/17 01:55 Dose: 0.5 mg Ceftriaxone Sodium (Rocephin 2 Gm Ivpb) 2 gm in 100 mls @ 100 mls/hr IVPB DAILY [facility] PRN Reason: Protocol Stop: 08/11/17 10:01 Last Admin: 08/05/17 12:01 Dose: 100 mls/hr Sodium Chloride (Sodium Chloride 0.9%) 1,000 mls @ 50 mls/hr IV .Q20H [facility] Last Admin: 08/05/17 14:54 Dose: Not Given Insulin Human Regular (Humulin R Low) 0 units SC ACHS [facility] PRN Reason: Protocol Last Admin: 08/05/17 22:30 Dose: Not Given Loratadine (Claritin) 10 mg PO DAILY [facility] Last Admin: 08/05/17 09:13 Dose: 10 mg Metronidazole (Flagyl) 250 mg PO Q8H [facility] PRN Reason: Protocol Last Admin: 08/06/17 05:09 Dose: 250 mg Montelukast Sodium (Singulair) 10 mg PO HS [facility] Last Admin: 08/05/17 21:20 Dose: 10 mg Pantoprazole Sodium (Protonix Ec Tab) 40 mg PO 0600 [facility] Last Admin: 08/06/17 05:09 Dose: 40 mg Potassium Chloride (Klor-Con 10) 10 meq PO BRK [facility] Last Admin: 08/05/17 08:09 Dose: 10 meq Pregabalin (Lyrica) 75 mg PO DAILY [facility] Last Admin: 08/05/17 09:13 Dose: 75 mg - Labs Labs: 08/05/17 11:30 08/05/17 11:40 PT 12.5 Seconds (9.9-11.8) H 08/04/17 06:07 INR 1.16 (0.93-1.08) H 08/04/17 06:07 APTT 34.3 Seconds (23.7-30.8) H 08/04/17 06:07 - Constitutional Appears: Non-toxic, No Acute Distress, Chronically Ill - Head Exam Head Exam: NORMAL INSPECTION - ENT Exam ENT Exam: Mucous Membranes Moist - Neck Exam Neck Exam: absent: Meningismus - Respiratory Exam Respiratory Exam: Decreased Breath Sounds Additional comments: right anterior chest wall mediport in place - Cardiovascular Exam Cardiovascular Exam: +S1, +S2 - GI/Abdominal Exam GI & Abdominal Exam: Soft. absent: Tenderness Assessment and Plan - Assessment and Plan (Free Text) Plan: Assessment sepsis due to Klebsiella bacteremia, R/O port infection (since there is no evidence of urinary tract or intra-abdominal infection); no evidence of biliary tract infection on HIDA scan DVT of the vein associated with mediport S/P mediport placement chronic renal failure pancreatic cancer HTN history of Hepatitis C history of TIA COPD Plan continue Rocephin (ru d/c Flagyl especially since patient has nausea) - repeat blood cx are negative so far; discussed with Dr. Loi Zamudio - should consider removal of the mediport since no other source has been identified for the Klebsiella - repeated blood cx from the port yesterday, awaiting results) will continue to monitor clinically Overall prognosis is poor
[2017-08-06] MEDS: Sodium Chloride 0.9% 1,000 ML IV SCH (10:45)
--- NOTE | 2017-08-06 13:05 | CP.PCM.PN ---
<Amelia Wright - Last Filed: 08/06/17 13:06> Subjective - Date & Time of Evaluation Date of Evaluation: 08/06/17 Time of Evaluation: 12:35 - Subjective Subjective: S&E at bedside, eating lunch, no acute overnight events. having soft BM, no bleeding, No N/V, abdominal pain under control. Objective - Vital Signs/Intake and Output Vital Signs (last 24 hours): Temp Pulse Resp BP Pulse Ox 98.2 F 78 19 134/86 98 08/06/17 12:00 08/06/17 12:00 08/06/17 12:00 08/06/17 12:00 08/06/17 05:50 Intake and Output: 08/06/17 08/06/17 06:59 18:59 Intake Total 240 Output Total 600 Balance -360 - Medications Medications: Current Medications Acetaminophen (Tylenol 325mg Tab) 650 mg PO Q4H PRN PRN Reason: Fever >100.5 F Last Admin: 08/06/17 12:12 Dose: 650 mg Albuterol/Ipratropium (Duoneb 3 Mg/0.5 Mg (3 Ml) Ud) 3 ml IH [id number] BRITTNEY Last Admin: 08/06/17 07:12 Dose: Not Given Alprazolam (Xanax) 0.5 mg PO DAILY BRITTNEY PRN Reason: Protocol Last Admin: 08/06/17 09:36 Dose: 0.5 mg Alprazolam (Xanax) 1 mg PO HS BRITTNEY PRN Reason: Protocol Last Admin: 08/05/17 21:20 Dose: 1 mg Amylase (Pancrease 99239 U-5000 U-11536 U) 10,000 u PO WM [facility] Last Admin: 08/06/17 12:13 Dose: 10,000 u Heparin Sodium (Porcine) (Heparin) 5,000 units SC Q12 BRITTNEY PRN Reason: Protocol Last Admin: 08/06/17 09:36 Dose: 5,000 units Hydromorphone HCl (Dilaudid) 0.5 mg IVP Q4H PRN PRN Reason: Pain, Mild (1-3) Last Admin: 08/06/17 08:40 Dose: 0.5 mg Ceftriaxone Sodium (Rocephin 2 Gm Ivpb) 2 gm in 100 mls @ 100 mls/hr IVPB DAILY BRITTNEY PRN Reason: Protocol Stop: 08/11/17 10:01 Last Admin: 08/06/17 09:36 Dose: 100 mls/hr Sodium Chloride (Sodium Chloride 0.9%) 1,000 mls @ 50 mls/hr IV .Q20H [facility] [place] Last Admin: 08/06/17 10:45 Dose: Not Given Insulin Human Regular (Humulin R Low) 0 units SC ACHS BRITTNEY PRN Reason: Protocol Last Admin: 08/06/17 11:30 Dose: Not Given Loratadine (Claritin) 10 mg PO DAILY [facility] Last Admin: 08/06/17 09:36 Dose: 10 mg Montelukast Sodium (Singulair) 10 mg PO HS [facility] [place] Last Admin: 08/05/17 21:20 Dose: 10 mg Pantoprazole Sodium (Protonix Ec Tab) 40 mg PO 0600 [facility] [place] Last Admin: 08/06/17 05:09 Dose: 40 mg Potassium Chloride (Klor-Con 10) 10 meq PO BRK [facility] [place] Last Admin: 08/06/17 08:40 Dose: 10 meq Pregabalin (Lyrica) 75 mg PO DAILY [facility] Last Admin: 08/06/17 09:36 Dose: 75 mg - Labs Labs: 08/05/17 11:30 08/05/17 11:40 PT 12.5 Seconds (9.9-11.8) H 08/04/17 06:07 INR 1.16 (0.93-1.08) H 08/04/17 06:07 APTT 34.3 Seconds (23.7-30.8) H 08/04/17 06:07 - Constitutional Appears: No Acute Distress - Head Exam Head Exam: NORMOCEPHALIC - Eye Exam Eye Exam: Scleral icterus - ENT Exam ENT Exam: Mucous Membranes Moist - Neck Exam Neck Exam: Normal Inspection - Respiratory Exam Respiratory Exam: NORMAL BREATHING PATTERN. absent: Respiratory Distress - Cardiovascular Exam Cardiovascular Exam: +S1, +S2 - GI/Abdominal Exam GI & Abdominal Exam: Soft, Tenderness, Normal Bowel Sounds. absent: Guarding, Rebound - Extremities Exam Extremities Exam: Normal Capillary Refill, Pedal Edema. absent: Calf Tenderness - Neurological Exam Neurological Exam: Alert, Awake, Oriented x3 - Skin Skin Exam: Dry, Warm Assessment and Plan - Assessment and Plan (Free Text) Assessment: Assessment: Metastatic pancreatic cancer Sepsis:blood cultures positive Klebsiella pneumonia a, repeat blood cultures Chronic diarrhea likely secondary to pancreatic insufficiency Blood per rectum, bleeding scan negative Anemia status post packed RBC Internal jugular vein thrombosis Plan: Continue IV antibiotics on ceftriaxone Diet as tolerated Continue pancreatic enzymes On heparin Monitor H&H and for overt GI bleed Seen and discussed with Dr. Merchant. <Thang Merchant V - Last Filed: 08/06/17 23:31> Objective - Vital Signs/Intake and Output Vital Signs (last 24 hours): Temp Pulse Resp BP Pulse Ox 98.7 F 103 H 19 143/101 H 98 08/06/17 18:00 08/06/17 18:00 08/06/17 18:00 08/06/17 18:00 08/06/17 05:50 Intake and Output: 08/06/17 08/07/17 18:59 06:59 Intake Total 240 700 Output Total 600 Balance -360 700 - Medications Medications: Current Medications Albuterol/Ipratropium (Duoneb 3 Mg/0.5 Mg (3 Ml) Ud) 3 ml IH [id number] [facility] [place] Last Admin: 08/06/17 19:54 Dose: Not Given Alprazolam (Xanax) 0.5 mg PO DAILY BRITTNEY PRN Reason: Protocol Last Admin: 08/06/17 09:36 Dose: 0.5 mg Alprazolam (Xanax) 1 mg PO HS BRITTNEY PRN Reason: Protocol Last Admin: 08/06/17 21:07 Dose: 1 mg Amylase (Pancrease 35316 U-5000 U-34637 U) 10,000 u PO WM [facility] [place] Last Admin: 08/06/17 17:19 Dose: 10,000 u Heparin Sodium (Porcine) (Heparin) 5,000 units SC Q12 BRITTNEY PRN Reason: Protocol Last Admin: 08/06/17 21:07 Dose: 5,000 units Hydromorphone HCl (Dilaudid) 0.25 mg IVP Q6H PRN PRN Reason: Pain, Mild (1-3) Last Admin: 08/06/17 21:07 Dose: 0.25 mg Ceftriaxone Sodium (Rocephin 2 Gm Ivpb) 2 gm in 100 mls @ 100 mls/hr IVPB DAILY BRITTNEY PRN Reason: Protocol Stop: 08/11/17 10:01 Last Admin: 08/06/17 09:36 Dose: 100 mls/hr Insulin Human Regular (Humulin R Low) 0 units SC ACHS BRITTNEY PRN Reason: Protocol Last Admin: 08/06/17 21:13 Dose: Not Given Pantoprazole Sodium (Protonix Ec Tab) 40 mg PO 0600 [facility] [place] Last Admin: 08/06/17 05:09 Dose: 40 mg Potassium Chloride (Klor-Con 10) 10 meq PO BRK BRITTNEY Last Admin: 08/06/17 08:40 Dose: 10 meq Pregabalin (Lyrica) 75 mg PO DAILY [facility] [place] Last Admin: 08/06/17 09:36 Dose: 75 mg - Labs Labs: 08/05/17 11:30 08/05/17 11:40 PT 12.5 Seconds (9.9-11.8) H 08/04/17 06:07 INR 1.16 (0.93-1.08) H 08/04/17 06:07 APTT 34.3 Seconds (23.7-30.8) H 08/04/17 06:07 Attending/Attestation - Attestation I have personally seen and examined this patient.: Yes I have fully participated in the care of the patient.: Yes I have reviewed all pertinent clinical information, including history, physical exam and plan: Yes
--- NOTE | 2017-08-06 17:01 | PN ---
SUBJECTIVE: The patient is 66-year-old female, multiple medical issues including pancreatic cancer, hypertension, COPD, hepatitis C, history of TIA. The patient was admitted for evaluation, status post fall, left hip pain, and syncopal episode. The patient was found to have sepsis due to Klebsiella. The medical team also ruling out port infection. DVT of the vein associated with the port, chronic renal failure, pancreatic cancer, hypertension, history of hepatitis C, history of TIA and COPD. Psych consult was called for evaluation of mood symptoms as well as the patient has history of mental illness. Initially, this play writer saw the patient on 08/02. The patient was seen and examined today. The patient reported that she does not feel good because of the nausea. The patient denied being depressed. The patient denied thoughts of killing herself or others. The patient reported that she has followup appointment at [facility] with her psychiatrist. The patient knows her medications. VITAL SIGNS: Reviewed. Temperature 97.3, pulse 94, blood pressure 143/87, respirations 20, oxygen saturation of 98. MEDICATIONS: Reviewed. The patient is on Tylenol, DuoNeb, Xanax 0.5 mg daily Xanax 1 mg at the nighttime, amylase, ceftriaxone, heparin, Dilaudid, Humulin, Claritin, Singulair, Protonix, potassium chloride, Lyrica, and sodium chloride. LABORATORY DATA: Labs reviewed. The patient still has leukocytosis 50.3 today. Hemoglobin and hematocrit is 5.9 and 29.5. Chemistry also reviewed. AST and ALT elevated 86 and 96 respectively. Urinalysis most recently was from ; blood moderate, leukocyte esterase small. MENTAL STATUS EXAMINATION: The patient presented to be alert and oriented, pleasant, cooperative, intermittent eye contact. Speech was low volume, under productive. Mood described as not depressed. Affect was constricted. Mood congruent. Thought processes was coherent and goal directed, but the same time, the patient said that at times she feels confused, when was asked what exactly does she mean, the patient said that she felt that she stayed in the hospital for more than a month, but obviously it is not true. Thought process, goal directed. Thought content: The patient denied visual, auditory, or tactile hallucinations. Denied paranoid ideation. The patient denied thoughts of harming herself or others. Denied intent or plan. Insight and judgment are fair. Impulses are well controlled. IMPRESSION: As per history, the patient has mood spectrum disorder, rule out bipolar disorder. The patient has multiple medical issues which could contribute to the patient's presentation, rule out mood disorder due to general medical condition. PLAN: Continue current management. Continue current medication. The patient does not present to be psychotic, depressed or suicidal. The patient posed no imminent danger to self or others. The patient is not confused. The patient could be followed up with outpatient psychiatrist at [facility]. Should you have any questions, give me a call back. This play writer will sign off. Ingrid Selby MD
[2017-08-07] MEDS ORDERED: HYDROmorphone 0.5 mg/0.5 ml ISec IVP ONE (00:14)
[2017-08-07] MEDS: Albuterol-Ipratrop 3 mg / 0.5 (3 ml) UD IH SCH ×4 (01:04→20:05)
--- NOTE | 2017-08-07 01:22 | PN ---
DATE: SUBJECTIVE: The patient is a 66-years old female. The patient seen and examined on the bedside. Looking comfortable. Diarrhea is better. No nausea or vomiting. No headache. No dizziness. No chest pain. No palpitation. No fever. No chills. The patient seen and examined at the bedside. Tolerated food very well and no acute event on 24 hours. Has soft bowel movement. No blood in the stool. Abdominal pain is under control. Sleep is okay. No fevers, no chills. PHYSICAL EXAMINATION VITAL SIGNS: Temperature 98.2, pulse 78, respiratory rate 19, blood pressure 134/86, pulse oximetry 98. HEENT: Head normocephalic, atraumatic. Eyes: PERRLA. Extraocular muscles intact. Conjunctiva clear. Nose patent. Mucous membrane moist. NECK: Supple. No carotid bruits, JVD or thyromegaly. CHEST: Bilaterally symmetrical. HEART: S1 and S2 positive. LUNGS: Clear to auscultation. ABDOMEN: Soft. Bowel sounds present. No organomegaly. EXTREMITIES: No edema. No cyanosis. NEUROLOGIC: The patient is awake and alert. Moving all 4 extremities. No focal deficits. MEDICATIONS: Tylenol, DuoNeb, Xanax, amylase, aspirin, heparin,ceftriaxone, Protonix, potassium. LABORATORY DATA: We do not have recent labs today, but I reviewed old labs. ASSESSMENT: Ms. Hortensia Love is a 66 years old lady with leukocytosis, anemia, has metastatic pancreatic cancer, sepsis. Blood culture is positive for Klebsiella pneumoniae. Repeat blood cultures negative. Chronic diarrhea, largely secondary to pancreatic insufficiency and now diarrhea is better, getting pancreas/lipase with no more bleeding. Bleeding scan was negative. Anemia, status post blood transfusion. Internal jugular vein thrombosis. PLAN: We will continue antibiotics, on ceftriaxone. Diet as tolerated. Continue pancreatic enzymes. On heparin drip, for overt GI bleeding. Reviewed Dr. Merchant's notes. Reviewed Dr. Berry's notes also. Seen by Dr. Ingrid Selby for depression. Rule out port infection as per ID. No evidence of biliary tract infection on HIDA scan. DVT of vein associated with the MediPort after MediPort placement. Chronic renal failure. His hepatitis C is positive, transient ischemic attack, chronic obstructive pulmonary disease. Continue Rocephin. We will discontinue Flagyl as per ID. Repeat blood cultures are negative. ID had discussion done with Dr. Loi Zamudio. She will consider removal of the MediPort. She has no other source that has been identified for Klebsiella. We will continue to monitor in clinically. Overall, prognosis is poor. We will follow up. Georgina Ferrara MD MTDD
[2017-08-07] MEDS: HYDROmorphone 0.5 mg/0.5 ml ISec IVP PRN ×5 (03:20→22:08)
[2017-08-07] MEDS: Pantoprazole 40 mg EC Tab PO SCH (05:33)
[2017-08-07 07:45] LABS: BLOOD UREA NITROGEN 5 mg/dL (7-21); CALCIUM 7.8 mg/dL (8.4-10.5); CARBON DIOXIDE 31 mmol/L (21-33); CHLORIDE 105 mmol/L (98-107); GFR AFRICAN-AMERICAN > 60; GLUCOSE,RANDOM 107 mg/dL (70-110); HEMATOCRIT 26.6 % (36.0-48.0); MEAN CELL VOLUME 84.4 fl (80.0-105.0); MEAN CORPUSCULAR HEMOGLOBIN 27.3 pg (25.0-35.0); MEAN CORPUSCULAR HGB CONC 32.3 g/dl (31.0-37.0); RED CELL DISTRIBUTION WIDTH 21.6 % (11.5-14.5); SODIUM 143 mmol/L (132-148); WHITE BLOOD COUNT 10.7 10^3/ul (4.5-11.0)
[2017-08-07] MEDS: Potassium Chloride 10 mEq ER Tab PO SCH (08:34)
[2017-08-07] MEDS: Amylase/Lipase/Protease 5,000 U ECC PO SCH ×3 (08:34→17:40)
[2017-08-07] MEDS: Insulin Reg-LOW-Coverage SC SCH ×4 (08:36→21:34)
[2017-08-07] MEDS: cefTRIAXone 2 GM IN NS 2 GM/100 ML BAG IVPB SCH (09:40)
--- NOTE | 2017-08-07 11:34 | PN ---
DATE: 08/07/2017 SUBJECTIVE: The patient was seen earlier in 260. The patient is in bed, in no acute distress. She states she is feeling much better. PHYSICAL EXAMINATION: VITAL SIGNS: Temperature is 98, blood pressure is 120/70, respiratory rate of 16. HEENT: Unremarkable. NECK: Supple. LUNGS: Decreased breath sounds. HEART: Normal S1 and S2. ABDOMEN: Soft, nontender. LABORATORY DATA: Reveals a white count of 10.7 this morning and hemoglobin of 8.6 and a platelets of 327. BUN of 5, creatinine of 0.6, procalcitonin is 0.99. Urinalysis is noted. Microbiology reveals the blood cultures are negative from the 28. The initial blood cultures are positive for Klebsiella pneumonia. Review of orders reveals the patient to be on ceftriaxone. ASSESSMENT AND PLAN: This is a 66-year-old female with sepsis due to Klebsiella bacteremia, rule out port infection, no evidence of urinary tract infection or intra abdominal infection, no evidence of biliary tract infection on HIDA scan, in a patient with deep vein thrombosis of the vein associated with the MediPort, status post MediPort placement, chronic renal failure and the patient with pancreatic cancer, hypertension, history of hepatitis C, history of transient ischemic attack, and chronic obstructive pulmonary disease, on ceftriaxone. Repeat cultures are negative. She will consider removal of the MediPort and currently on ceftriaxone with negative cultures from the , today is day #7 of 28 days. Since the patient did have a catheter related associated deep vein thrombosis and the right internal jugular. Negative HIDA scan. Luc Lynn MD
[2017-08-07] MEDS ORDERED: Potassium Chloride 10 mEq ER Tab PO SCH (16:05)
--- NOTE | 2017-08-07 20:46 | PN ---
DATE: SUBJECTIVE: The patient is a 66-year-old female. The patient was seen and examined at the bedside on telemetry. Looking comfortable. No nausea, vomiting or diarrhea. No headache or dizziness. Abdominal pain is getting better. No swelling of the leg. No fever. No chills. PHYSICAL EXAMINATION VITAL SIGNS: Temperature 98, pulse 68, blood pressure 135/85, respiratory rate 15. HEENT: Head normocephalic, atraumatic. Eyes: PERRLA. Extraocular muscles intact. Conjunctiva clear. Nose patent. Mucous membrane moist. NECK: Supple. No carotid bruits. No JVD or thyromegaly. CHEST: Bilaterally symmetrical. HEART: S1 and S2 positive. LUNGS: Clear to auscultation. ABDOMEN: Soft. Bowel sounds present. No organomegaly. EXTREMITIES: No edema. No cyanosis. MEDICATIONS: Dilaudid, DuoNeb, heparin, insulin, K-Meryl, Lyrica, Pancrease, Protonix, Rocephin, Tramadol, and Xanax. LABORATORY DATA: White blood cells 10.7, hemoglobin 8.6, hematocrit 26.6, platelets 327. Sodium 143, potassium 3.0, BUN 5, creatinine 0.6. Glucose 148, 124, 117. Calcium 7.8. ASSESSMENT AND PLAN: Ms. Hortensia Love is a 66-year-old lady with hypokalemia, replaced; hypocalcemia, replaced; uncontrolled diabetes mellitus; anemia; has sepsis due to Klebsiella bacteremia, rule out port infection and no evidence of urinary tract infection or intraabdominal infection or evidence of biliary tract infection on HIDA scan. History of deep vein thrombosis associated with MediPort, status post MediPort placement. Chronic renal failure, stable. The patient has pancreatic cancer with metastasis to the liver and lungs, hypertension. History of hepatitis C, never got treatment; history of transient ischemic attack; chronic obstructive pulmonary disease. The patient is getting ceftriaxone. Repeat cultures are negative. According to Dr. Lynn, we should remove MediPort and the patient is getting ceftriaxone seventh of the 28 days. Repeat blood culture is negative. Since the patient did have catheter-associated deep vein thrombosis in the right internal jugular vein, so may be after removing the MediPort that will help for infection and for deep vein thrombosis, appreciated Dr. Lynn's input. Dr. Loi Zamudio is on the case. We will talk to him. We will follow up. Georgina Ferrara MD
--- NOTE | 2017-08-07 21:01 | PN ---
PULMONARY PROGRESS NOTE DATE: 08/07/2017 REFERRING PHYSICIAN: Dr. Ferrara. SUBJECTIVE: The patient is lying in the bed, head at 45 degree, night was unremarkable. No cough. No sputum production. Has abdominal pain, still have a loose bowel movement. No hematochezia. PHYSICAL EXAMINATION: GENERAL: No acute distress. VITAL SIGNS: Temperature is 98, heart rate 68, respiratory rate is 20, blood pressure 135/85 and pulse oximetry of 97% on room air. HEENT: Moist mucous membranes. Crowded airway. NECK: Supple. No JVD. CHEST: Right chest has Port-A-Cath. LUNGS: Has fair airflow with few rhonchi. HEART: S1 and S2. ABDOMEN: Positive bowel sounds. Has epigastric pain. EXTREMITIES: There is no edema. NEUROLOGIC: Awake, alert and follow simple commands. MEDICATIONS: The patient is on Dilaudid 0.25 mg q. 4 hours p.r.n., albuterol nebulizer q. 6 hours, heparin 5000 units subq q.12 hours, insulin coverage, potassium 40 mEq daily, Lyrica 75 mg daily, vitamin D one tablet daily, amylase and lipase 10,000 international units with meals, Protonix 40 mg daily, Rocephin 2 g IV daily, Ultram 50 mg q. 6 hours p.r.n. and Xanax 0.5 mg daily and 1 mg at the bedtime. LABORATORY DATA: Shows hemoglobin 8.6, hematocrit 26.6, WBC 10.7 and platelet is 327. Sodium 143, potassium 3.0, chloride 105, bicarbonate 31, BUN 5, creatinine 0.6, glucose 107 and calcium is 7.8. IMPRESSION AND PLAN: Resolving bacteremia, internal jugular vein thrombosis, metastatic adenocarcinoma involving the liver, pancreas and lungs, pancreatic insufficiency, hepatitis C, chronic obstructive lung disease, hypertension, gastrointestinal bleed. Pulmonary point of view, doing okay. We will continue pain management, being followed by gastroenterology. Pancreas replacement is being given. High risk for thromboembolic disease. Antibiotics as per infectious disease, gastric prophylaxis, sequential compression devices for lower extremities. Out of bed to chair. Overall, poor prognosis. Continue therapy. Thank you and we will follow with you. Linnea Stephen MD [facility] # [id number]
[2017-08-08] MEDS: Albuterol-Ipratrop 3 mg / 0.5 (3 ml) UD IH SCH ×4 (01:25→20:08)
[2017-08-08] MEDS: HYDROmorphone 0.5 mg/0.5 ml ISec IVP PRN ×6 (02:36→23:06)
[2017-08-08] MEDS: Pantoprazole 40 mg EC Tab PO SCH (06:09)
[2017-08-08] MEDS: Insulin Reg-LOW-Coverage SC SCH ×4 (08:13→21:35)
[2017-08-08] MEDS: Amylase/Lipase/Protease 5,000 U ECC PO SCH ×3 (08:16→17:22)
[2017-08-08] MEDS: Potassium Chloride 20 mEq ER Tab PO SCH (08:16)
--- NOTE | 2017-08-08 09:21 | PN ---
DATE: 08/08/2017 SUBJECTIVE: The patient is in bed, in no acute distress, seen earlier. The patient is comfortable. PHYSICAL EXAMINATION: VITAL SIGNS: Temperature is 98, blood pressure is 140/90, respiratory rate is 18, heart rate of 85. HEENT: Unremarkable. NECK: Supple. LUNGS: Decreased breath sounds. HEART: Normal S1 and S2. ABDOMEN: Soft, nontender. LABORATORY DATA: Reveals a white count of 10,000, hemoglobin of 8, platelets of 327. Coagulation is noted. Chemistry reveals the BUN of 5, creatinine of 0.6. Microbiology reveals the Klebsiella pneumonia. Blood cultures and repeat blood cultures are negative. Review of the orders; the patient is on ceftriaxone [address] Stephen's note is reviewed from yesterday. Dr. Ferrara's progress note is reviewed from yesterday. ASSESSMENT AND PLAN: This is a 66-year-old female, seen earlier today in [facility], bed 2, with sepsis due to Klebsiella bacteremia, most likely secondary to port infection with a catheter related associated deep vein thrombosis in her right internal jugular. Currently on ceftriaxone day #8 of 28 days; recommend removal of that Port-A-Cath and treat for at least 28 days of ceftriaxone, and today is day #8 since the repeat blood cultures have been negative. Case discussed with the nursing staff. Luc Lynn MD
[2017-08-08] MEDS: cefTRIAXone 2 GM IN NS 2 GM/100 ML BAG IVPB SCH (10:01)
[2017-08-08] MEDS: Calcium-Vit D 250 mg-125 Units Tab UD PO SCH (10:02)
--- NOTE | 2017-08-08 19:41 | PN ---
DATE: SUBJECTIVE: The patient is a 66 years old female. The patient was seen and examined at the bedside. Looking comfortable. No nausea, vomiting, or diarrhea. No hematuria or hematochezia, still complaining of abdominal pain. No headache. No dizziness. No fever. No chills. PHYSICAL EXAMINATION: VITAL SIGNS: Temperature 98.1, blood pressure 149/98, respiratory rate 18. HEENT: Head normocephalic, atraumatic. Eyes: PERRLA. Extraocular muscles intact. Conjunctivae clear. Nose patent. NECK: Supple. No carotid bruits. No JVD or thyromegaly. CHEST: Bilaterally symmetrical. HEART: S1 and S2 positive. LUNGS: Clear to auscultation. ABDOMEN: Soft. Bowel sounds present. No organomegaly. EXTREMITIES: No edema. No cyanosis. NEUROLOGIC: The patient is awake, alert, moving all extremities. Oriented x3. MEDICATIONS: Dilaudid, albuterol, heparin, insulin, K-Meryl, Lyrica, calcium with vitamin D, amylase/lipase, Protonix, Rocephin 2 g IV daily, Tramadol, and Xanax. LABORATORY DATA: We do not have recent labs today, but reviewed old labs. Glucose 144, 204, 103, 206, 148, 124. ASSESSMENT AND PLAN: Ms. Hortensia Love is a 56 years old lady with anemia, status post blood transfusion; insulin-dependent diabetes mellitus, type 2, not controlled; Klebsiella bacteremia, most likely secondary to port infection with the catheter-related associated deep vein thrombosis in her right internal jugular. Continue ceftriaxone day 8 of the 28 days. Infectious disease recommending Port-A-Cath removal and treatment for at least 28 days of ceftriaxone, today is day 8. Repeat blood cultures are negative. Dr. Loi Zamudio is on the case. He is supposed to discuss with Dr. Lynn. The patient has a history of pancreatic cancer with metastasis, history of metastatic adenocarcinoma involving the liver, pancreas, lungs; pancreatic insufficiency, get amylase/lipase. Hepatitic C positive. Chronic lung disease, history of gastrointestinal bleeding. The patient is high risk of thromboembolic disease as the patient knows. Gastrointestinal and deep venous thrombosis prophylaxis. Repeat labs. We will follow up. Georgina Ferrara MD MTDD
--- NOTE | 2017-08-09 00:27 | PN ---
PULMONARY PROGRESS NOTE DATE: 08/08/2017 REFERRING PHYSICIAN: Dr. Ferrara. SUBJECTIVE: The patient is sitting at the side of the bed. Night was unremarkable. Feels better, but require pain medication. No nausea. No vomiting. Does have abdominal pain. No diarrhea today. No leg pain or leg swelling. PHYSICAL EXAMINATION GENERAL: No acute distress. VITAL SIGNS: Temperature 98, heart rate 78, respiratory rate is 18, blood pressure 149/98 and pulse oximetry of 99% on room air. HEENT: Moist mucous membranes. Crowded airway. Mallampati score is IV. NECK: Supple. No JVD. LUNGS: Has fair airflow with few rhonchi. HEART: S1 and S2. ABDOMEN: Positive bowel sounds. Mild epigastric tenderness. EXTREMITIES: There is no edema. NEUROLOGIC: Awake, alert and follow simple commands.. MEDICATIONS: She is on Dilaudid 0.5 mg q.4 hours p.r.n., DuoNeb q.6 hours, heparin 5000 units subq q.12 hours, insulin coverage, potassium 40 mEq daily, Lyrica 75 mg daily, vitamin D and calcium 1 tablet daily, amylase/lipase with meals, Protonix 40 mg daily, Rocephin 2 g IV daily, Ultram 50 mg q.6 hours p.r.n., Xanax 0.5 mg daily and also Xanax 1 mg at bedtime. LABORATORY DATA: Shows blood sugar 103 this morning. IMPRESSION AND PLAN: Status post bacteremia on antibiotics, internal jugular vein thrombosis, has a [id number]-[id number], metastatic adenocarcinoma involving liver, pancreas and lungs, has obstructive ducts requiring stent, pancreatic insufficiency, hepatitis C, chronic obstructive lung disease, hypertension, diabetes, gastroesophageal reflux disease, chronic pain secondary to tumor. Continue pain management. Keep head 45 at degree. Status post gastrointestinal bleed, anticoagulation was stopped, high risk for thromboembolic disease. The patient understands accepting the risk. Continue pain management, bronchodilator. Gastroenterology followup. Discharge planning if cleared by infectious disease. Linnea Stephen MD
[2017-08-09] MEDS: Albuterol-Ipratrop 3 mg / 0.5 (3 ml) UD IH SCH ×4 (02:40→19:46)
[2017-08-09] MEDS: HYDROmorphone 0.5 mg/0.5 ml ISec IVP PRN ×5 (03:09→19:56)
[2017-08-09] MEDS: Pantoprazole 40 mg EC Tab PO SCH (06:18)
[2017-08-09 06:52] LABS: HEMATOCRIT 27.1 % (36.0-48.0); MEAN CELL VOLUME 86.6 fl (80.0-105.0); MEAN CORPUSCULAR HEMOGLOBIN 28.1 pg (25.0-35.0); MEAN CORPUSCULAR HGB CONC 32.5 g/dl (31.0-37.0); MEAN PLATELET VOLUME 8.8 fl (7.0-11.0); RED CELL DISTRIBUTION WIDTH 22.2 % (11.5-14.5); WHITE BLOOD COUNT 11.1 10^3/ul (4.5-11.0)
[2017-08-09 06:57] LABS: BLOOD UREA NITROGEN 7 mg/dL (7-21); CARBON DIOXIDE 32 mmol/L (21-33); CHLORIDE 106 mmol/L (98-107); GFR AFRICAN-AMERICAN > 60; GLUCOSE,RANDOM 106 mg/dL (70-110); POTASSIUM 3.3 mmol/L (3.6-5.0); SODIUM 143 mmol/L (132-148)
[2017-08-09] MEDS: Insulin Reg-LOW-Coverage SC SCH ×4 (08:06→21:50)
[2017-08-09] MEDS: Amylase/Lipase/Protease 5,000 U ECC PO SCH ×3 (08:11→16:25)
[2017-08-09] MEDS: Potassium Chloride 20 mEq ER Tab PO SCH (08:11)
[2017-08-09] MEDS: Calcium-Vit D 250 mg-125 Units Tab UD PO SCH (10:01)
[2017-08-09] MEDS: cefTRIAXone 2 GM IN NS 2 GM/100 ML BAG IVPB SCH (10:02)
--- NOTE | 2017-08-09 13:20 | CP.PCM.PN ---
Subjective - Date & Time of Evaluation Date of Evaluation: 08/09/17 Time of Evaluation: 10:00 - Subjective Subjective: Comfortable in bed, no fevers, not in distress, no nausea, no diarrhea. Objective - Vital Signs/Intake and Output Vital Signs (last 24 hours): Temp Pulse Resp BP Pulse Ox 98.6 F 91 H 20 148/84 96 08/09/17 05:35 08/09/17 05:35 08/09/17 05:35 08/09/17 05:35 08/09/17 05:35 Intake and Output: 08/09/17 08/09/17 06:59 18:59 Intake Total 0 Balance 0 - Medications Medications: Current Medications Albuterol/Ipratropium (Duoneb 3 Mg/0.5 Mg (3 Ml) Ud) 3 ml IH [id number] [facility] Last Admin: 08/09/17 08:03 Dose: Not Given Alprazolam (Xanax) 0.5 mg PO DAILY [facility] PRN Reason: Protocol Last Admin: 08/08/17 10:02 Dose: 0.5 mg Alprazolam (Xanax) 1 mg PO HS [facility] PRN Reason: Protocol Last Admin: 08/08/17 21:31 Dose: 1 mg Amylase (Pancrease 14686 U-5000 U-08617 U) 10,000 u PO WM [facility] Last Admin: 08/09/17 08:11 Dose: 10,000 u Calcium/Vitamin D (Oscal-D 250 Mg-125 Units Tab) 1 tab PO DAILY [facility] Last Admin: 08/08/17 10:02 Dose: 1 tab Heparin Sodium (Porcine) (Heparin) 5,000 units SC Q12 [facility] PRN Reason: Protocol Last Admin: 08/08/17 21:31 Dose: 5,000 units Hydromorphone HCl (Dilaudid) 0.25 mg IVP Q4H PRN PRN Reason: Pain, Mild (1-3) Last Admin: 08/09/17 06:41 Dose: 0.25 mg Ceftriaxone Sodium (Rocephin 2 Gm Ivpb) 2 gm in 100 mls @ 100 mls/hr IVPB DAILY [facility] PRN Reason: Protocol Stop: 08/11/17 10:01 Last Admin: 08/08/17 10:01 Dose: 100 mls/hr Insulin Human Regular (Humulin R Low) 0 units SC ACHS [facility] PRN Reason: Protocol Last Admin: 08/09/17 08:06 Dose: Not Given Ondansetron HCl (Zofran Inj) 4 mg IVP Q6H PRN PRN Reason: Nausea/Vomiting Last Admin: 08/08/17 23:06 Dose: 4 mg Pantoprazole Sodium (Protonix Ec Tab) 40 mg PO 0600 [facility] Last Admin: 08/09/17 06:18 Dose: 40 mg Potassium Chloride (K-Dur 20 Meq Er Tab) 40 meq PO BRK [facility] Last Admin: 08/09/17 08:11 Dose: 40 meq Pregabalin (Lyrica) 75 mg PO DAILY [facility] Last Admin: 08/08/17 10:02 Dose: 75 mg Tramadol HCl (Ultram) 50 mg PO Q6 PRN PRN Reason: Pain, moderate (4-7) Last Admin: 08/08/17 17:29 Dose: 50 mg - Labs Labs: 08/09/17 06:38 08/09/17 06:38 PT 12.5 Seconds (9.9-11.8) H 08/04/17 06:07 INR 1.16 (0.93-1.08) H 08/04/17 06:07 APTT 34.3 Seconds (23.7-30.8) H 08/04/17 06:07 - Constitutional Appears: Non-toxic, No Acute Distress - Head Exam Head Exam: NORMAL INSPECTION - ENT Exam ENT Exam: Mucous Membranes Moist - Neck Exam Neck Exam: absent: Meningismus - Respiratory Exam Respiratory Exam: Decreased Breath Sounds Additional comments: right anterior chest wall port site intact - Cardiovascular Exam Cardiovascular Exam: +S1, +S2 - GI/Abdominal Exam GI & Abdominal Exam: Soft. absent: Tenderness Assessment and Plan - Assessment and Plan (Free Text) Plan: Assessment sepsis due to Klebsiella bacteremia, R/O port infection (since there is no evidence of urinary tract or intra-abdominal infection); no evidence of biliary tract infection on HIDA scan DVT of the vein associated with mediport S/P mediport placement chronic renal failure pancreatic cancer HTN history of Hepatitis C history of TIA COPD Plan continue Rocephin to complete at least 4 weeks of antibiotics (day 9 today from 1st negative blood cx) - repeat blood cx are negative so far; discussed with Dr. Loi Zamudio and Dr. Boghossian - since vascular access is an issue for the patient, removal of the port will be deferred for now and will do antibiotic lock therapy on top of Rocephin will continue to monitor clinically Overall prognosis is poor
[2017-08-09] MEDS: GENTAMICIN SULFATE CVC SCH (19:55)
[2017-08-09] MEDS: SODIUM CHLORIDE 0.9% CVC SCH (19:55)
[2017-08-09] MEDS: HEPARIN CVC SCH (19:55)
--- NOTE | 2017-08-09 21:54 | PN ---
PULMONARY PROGRESS NOTE DATE: 08/09/2017 REFERRING PHYSICIAN: Georgina Ferrara MD SUBJECTIVE: She is lying in the bed head at 45 degrees. Night was unremarkable. No headache. No rhinitis. No cough. No sputum production. Still has some mild abdominal pain requiring pain medication. No diarrhea today. No leg pain or leg swelling. OBJECTIVE: GENERAL: In no acute distress. VITAL SIGNS: Temperature is 98, heart rate is 79, respiratory rate is 18, blood pressure 140/90. HEENT: Moist mucous membranes and crowded airway. NECK: Supple. No JVD. HEART: S1 and S2. LUNGS: Has a fair airflow with few rhonchi. ABDOMEN: Soft and nontender. No organomegaly. EXTREMITIES: There is no edema. NEUROLOGIC: Awake and alert. Follow simple commands. Right upper chest has a [id number]. LABORATORY DATA: Shows hemoglobin 8.8, hematocrit 27.1, WBC 11.1, platelet is 276. Sodium 143, potassium 3.3, chloride 106, bicarbonate 32, BUN 7, creatinine 0.6, glucose 148, calcium is 8.0. MEDICATIONS: She is on Dilaudid 0.25 mg q. 4 hours, DuoNeb q. 6 hours, heparin 5000 units subcutaneous q. 12 hours, insulin coverage, potassium 40 mEq daily, Lyrica 75 mg daily, amylase and lipase p.o. with meals, Protonix 40 mg daily, Rocephin 2 g IV daily, Ultram 50 mg q. 6 hours p.r.n., Xanax 0.5 mg daily and also Xanax 1 mg at bedtime, Zofran p.r.n. basis. IMPRESSION AND PLAN: Status post bacteremia, on antibiotics, internal jugular vein thrombosis, has a [id number], metastatic adenocarcinoma involving liver, pancreas, lungs, and ductal system requiring stent, hepatitis C, chronic obstructive lung disease, hypertension, diabetes, gastroesophageal reflux disease, chronic pain secondary to tumor. Pulmonary point of view, she is doing okay, keep head at 45 degrees, pain management, gastric prophylaxis, being followed by infectious diseases and gastroenterology for further recommendations. Thank you and we will follow with you. Linnea Stephen MD
[2017-08-10] MEDS: HYDROmorphone 0.5 mg/0.5 ml ISec IVP PRN ×6 (00:16→20:55)
[2017-08-10] MEDS: Albuterol-Ipratrop 3 mg / 0.5 (3 ml) UD IH SCH ×4 (02:30→19:14)
--- NOTE | 2017-08-10 02:35 | PN ---
DATE: SUBJECTIVE: The patient is 66 years old female. The patient is seen and examined on the bedside. The patient's son and [id number] was on the bedside. Length of time discussion done with the patient and the patient's family, all questions answered. No nausea, vomiting, or diarrhea. No hematuria or hematochezia. No headache. No dizziness. No chest pain. No palpitation. Discussions done with Dr. Berry, and with nurse practitioner, Rosa and called Dr. Loi Zamudio for removal of the port. PHYSICAL EXAMINATION: VITAL SIGNS: Temperature 98.7, pulse 79, blood pressure 140/90, respiratory rate 19. HEENT: Head is normocephalic and atraumatic. Eyes, PERRLA. Extraocular muscles intact. Conjunctivae clear. Nose patent. Mucous membrane moist. NECK: Supple. No carotid bruit. No JVD or thyromegaly. CHEST: Bilaterally symmetrical. HEART: S1 and S2 positive. LUNGS: Clear to auscultation. ABDOMEN: Soft. Bowel sounds positive. No organomegaly. EXTREMITIES: No edema. No cyanosis. NEUROLOGIC: The patient is awake and alert. Moving all four extremities. No focal deficit. MEDICATIONS: Hydromorphone, albuterol, gentamicin, heparin, potassium, Lyrica, amylase/pancreas, Protonix, ceftriaxone, tramadol, and Xanax. LABORATORY DATA: White blood cell 11.1, hemoglobin 8.8, hematocrit 27.1, platelets 276. Sodium 143, potassium 3.3, BUN 7, creatinine 0.6, glucose 148 and 117. ASSESSMENT AND PLAN: Ms. Hortensia Love is 66 years old lady with hypokalemia, replaced; hyperglycemia, hypocalcemia, getting calcium, leukocytosis, anemia, seen by Dr. Loi Berry, Infectious Disease, history of hypertension, history of hepatitis C, transient ishemic attack, chronic obstructive pulmonary disease, sepsis due to Klebsiella bacteremia rule out infection since there is no evidence of urinary tract or intraabdominal infection, no evidence of biliary tract infection on HIDA scan, deep venous thrombosis of the vein associated with MediPort, chronic renal failure, pancreatic cancer with metastasis to the liver and lungs. PLAN: Continue Rocephin to complete at least four weeks of antibiotics, today is day 9. Repeat blood cultures are negative. Discussion done with Dr. Berry, and he had discussion done with Dr. Lynn, Dr. Loi Zamudio, *------* of the patient, removal of the port will be deferred for now and we will give antibiotics long therapy on the top of Rocephin. Continue monitoring the patient. Overall, prognosis is poor. Appreciated ID input, status post chemotherapy, obstructive sleep apnea, diabetes mellitus, gastroesophageal reflux disease, chronic pain syndrome, pain of the malignancy, history of GI bleeding. Continue pain management and antibiotics. Trying to transfer the patient to TCU. We will followup. Georgina Ferrara MD
[2017-08-10] MEDS: Pantoprazole 40 mg EC Tab PO SCH (05:01)
[2017-08-10] MEDS: Insulin Reg-LOW-Coverage SC SCH ×4 (07:45→22:05)
[2017-08-10] MEDS: Amylase/Lipase/Protease 5,000 U ECC PO SCH ×3 (07:50→17:06)
[2017-08-10] MEDS: Potassium Chloride 20 mEq ER Tab PO SCH (07:50)
[2017-08-10] MEDS: cefTRIAXone 2 GM IN NS 2 GM/100 ML BAG IVPB SCH (11:02)
[2017-08-10] MEDS: Calcium-Vit D 250 mg-125 Units Tab UD PO SCH (11:03)
--- NOTE | 2017-08-10 15:32 | PN ---
SUBJECTIVE: The patient is in bed, in no acute distress, nontoxic. She is awake and alert. PHYSICAL EXAMINATION: VITAL SIGNS: Temperature is 98, blood pressure is 150/80, respiratory rate of 18, heart rate of 92. HEENT: Unremarkable. NECK: Supple. LUNGS: Decreased breath sounds. HEART: Normal S1 and S2. ABDOMEN: Soft, nontender. LABORATORY DATA: Reveals a white count of 11,000, hemoglobin of 8, platelets of 276. Chemistry reveals the BUN of 7, creatinine of 0.6. Urinalysis is noted and microbiology reveals the blood cultures is no growth. Repeat cultures are no growth from and initial cultures from are positive for Klebsiella pneumonia. REVIEW OF ORDERS: Reveal the patient to be on a gentamicin lock q. 48 hours, it was started by Dr. Berry. The patient is also on ceftriaxone, which requires renewal which I will do so. ASSESSMENT AND PLAN: This is a 66-year-old female with sepsis secondary to Klebsiella bacteremia, Port-A-Cath infection, no evidence of urinary tract, no evidence of intraabdominal infection, and no evidence of biliary tract, negative HIDA scan. The patient has deep vein thrombosis of the vein associated with the MediPort and chronic renal failure. I have discussed the case with Dr. Loi Zamudio regarding the removal of Port-A-Cath given the patient's IV access and the fact that the patient has pancreatic cancer with hepatitis C, hypertension, chronic obstructive lung disease, transient ischemic attack. He states that he will follow the patient closely and not take the Port-A-Cath out at this time, and today is day #10 of 28 days of ceftriaxone and antibiotic lock therapy started with gentamicin by Dr. Berry, in this patient who is end stage. Dr. Ferrara's note is reviewed. Dr. Stephen's note is reviewed, and the patient with pancreatic cancer involving liver and lungs. We will follow closely with you. Luc Lynn MD
--- NOTE | 2017-08-10 16:11 | CP.PCM.PN ---
<Mayur,Kovil V - Last Filed: 08/10/17 19:40> Objective - Vital Signs/Intake and Output Vital Signs (last 24 hours): Temp Pulse Resp BP Pulse Ox 98.9 F 91 H 20 153/99 H 100 08/10/17 12:00 08/10/17 12:00 08/10/17 12:00 08/10/17 12:00 08/10/17 05:54 - Medications Medications: Current Medications Albuterol/Ipratropium (Duoneb 3 Mg/0.5 Mg (3 Ml) Ud) 3 ml IH [id number] [facility] Last Admin: 08/10/17 19:14 Dose: Not Given Alprazolam (Xanax) 0.5 mg PO DAILY [facility] PRN Reason: Protocol Last Admin: 08/10/17 11:02 Dose: 0.5 mg Alprazolam (Xanax) 1 mg PO HS [facility] PRN Reason: Protocol Last Admin: 08/09/17 21:08 Dose: 1 mg Amylase (Pancrease 29817 U-5000 U-59914 U) 10,000 u PO WM [facility] Last Admin: 08/10/17 17:06 Dose: 10,000 u Calcium/Vitamin D (Oscal-D 250 Mg-125 Units Tab) 1 tab PO DAILY [facility] Last Admin: 08/10/17 11:03 Dose: 1 tab Heparin Sodium (Porcine) (Heparin) 5,000 units SC Q12 [facility] PRN Reason: Protocol Last Admin: 08/10/17 11:03 Dose: 5,000 units Hydromorphone HCl (Dilaudid) 0.25 mg IVP Q4H PRN PRN Reason: Pain, Mild (1-3) Last Admin: 08/10/17 16:56 Dose: 0.25 mg Ceftriaxone Sodium (Rocephin 2 Gm Ivpb) 2 gm in 100 mls @ 100 mls/hr IVPB DAILY [facility] PRN Reason: Protocol Stop: 08/11/17 10:01 Last Admin: 08/10/17 11:02 Dose: 100 mls/hr Gentamicin Sulfate 2 mg/Heparin Sodium (Porcine) 5,000 units/ Sodium Chloride 2 mls @ 2 mls/min CVC Q48H [facility] Stop: 08/23/17 18:01 Last Admin: 08/09/17 19:55 Dose: 2 mls/min Insulin Human Regular (Humulin R Low) 0 units SC ACHS [facility] PRN Reason: Protocol Last Admin: 08/10/17 17:26 Dose: Not Given Ondansetron HCl (Zofran Inj) 4 mg IVP Q6H PRN PRN Reason: Nausea/Vomiting Last Admin: 08/10/17 11:11 Dose: 4 mg Pantoprazole Sodium (Protonix Ec Tab) 40 mg PO 0600 [facility] Last Admin: 08/10/17 05:01 Dose: 40 mg Potassium Chloride (K-Dur 20 Meq Er Tab) 40 meq PO BRK [facility] Last Admin: 08/10/17 07:50 Dose: 40 meq Pregabalin (Lyrica) 75 mg PO DAILY [facility] Last Admin: 08/10/17 11:02 Dose: 75 mg Tramadol HCl (Ultram) 50 mg PO Q6 PRN PRN Reason: Pain, moderate (4-7) Last Admin: 08/10/17 11:12 Dose: 50 mg - Labs Labs: 08/09/17 06:38 08/09/17 06:38 PT 12.5 Seconds (9.9-11.8) H 08/04/17 06:07 INR 1.16 (0.93-1.08) H 08/04/17 06:07 APTT 34.3 Seconds (23.7-30.8) H 08/04/17 06:07 Attending/Attestation - Attestation I have personally seen and examined this patient.: Yes I have fully participated in the care of the patient.: Yes I have reviewed all pertinent clinical information, including history, physical exam and plan: Yes Notes (Text): This is an addendum to GI progress report dictated by Amelia Wright APN.The patient was seen and examined earlier. Medical records, lab studies, imagings were reviewed. Last 24 hours events reviewed. Agreed with the above treatment plan as outlined in Amelia Wright APN's notes the with the addition of the following on examination abdomen soft Tolerating the diet loose bowel movements improved. On pancreatic enzyme supplement Patient is on lock antibiotic therapy for port infection On subcutaneous heparin history of GI bleeding h/o IJV thrombosis 08/10/17 19:40 08/10/17 19:42 <Amelia Wright J - Last Filed: 08/11/17 11:41> Subjective - Date & Time of Evaluation Date of Evaluation: 08/10/17 Time of Evaluation: 11:00 - Subjective Subjective: seen and examined at the bedside earlier this morning, the chart was reviewed. Patient denies nausea, vomiting or abdominal pain. Having formed BM, no reports of melena or bright red blood per rectum. Tolerating oral intake. No new complaints. Objective - Vital Signs/Intake and Output Vital Signs (last 24 hours): Temp Pulse Resp BP Pulse Ox 98.9 F 91 H 20 153/99 H 100 08/10/17 12:00 08/10/17 12:00 08/10/17 12:00 08/10/17 12:00 08/10/17 05:54 Intake and Output: 08/10/17 08/10/17 06:59 18:59 Intake Total 240 Balance 240 - Medications Medications: Current Medications Albuterol/Ipratropium (Duoneb 3 Mg/0.5 Mg (3 Ml) Ud) 3 ml IH [id number] [facility] Last Admin: 08/10/17 13:14 Dose: Not Given Alprazolam (Xanax) 0.5 mg PO DAILY [facility] PRN Reason: Protocol Last Admin: 08/10/17 11:02 Dose: 0.5 mg Alprazolam (Xanax) 1 mg PO HS [facility] PRN Reason: Protocol Last Admin: 08/09/17 21:08 Dose: 1 mg Amylase (Pancrease 60774 U-5000 U-36799 U) 10,000 u PO WM [facility] Last Admin: 08/10/17 11:38 Dose: 10,000 u Calcium/Vitamin D (Oscal-D 250 Mg-125 Units Tab) 1 tab PO DAILY [facility] Last Admin: 08/10/17 11:03 Dose: 1 tab Heparin Sodium (Porcine) (Heparin) 5,000 units SC Q12 [facility] PRN Reason: Protocol Last Admin: 08/10/17 11:03 Dose: 5,000 units Hydromorphone HCl (Dilaudid) 0.25 mg IVP Q4H PRN PRN Reason: Pain, Mild (1-3) Last Admin: 08/10/17 13:17 Dose: 0.25 mg Ceftriaxone Sodium (Rocephin 2 Gm Ivpb) 2 gm in 100 mls @ 100 mls/hr IVPB DAILY [facility] PRN Reason: Protocol Stop: 10/04/17 10:01 Last Admin: 08/10/17 11:02 Dose: 100 mls/hr Gentamicin Sulfate 2 mg/Heparin Sodium (Porcine) 5,000 units/ Sodium Chloride 2 mls @ 2 mls/min CVC Q48H [facility] Stop: 08/23/17 18:01 Last Admin: 08/09/17 19:55 Dose: 2 mls/min Insulin Human Regular (Humulin R Low) 0 units SC ACHS [facility] PRN Reason: Protocol Last Admin: 08/10/17 11:38 Dose: 1 units Ondansetron HCl (Zofran Inj) 4 mg IVP Q6H PRN PRN Reason: Nausea/Vomiting Last Admin: 08/10/17 11:11 Dose: 4 mg Pantoprazole Sodium (Protonix Ec Tab) 40 mg PO 0600 [facility] Last Admin: 08/10/17 05:01 Dose: 40 mg Potassium Chloride (K-Dur 20 Meq Er Tab) 40 meq PO BRK [facility] Last Admin: 08/10/17 07:50 Dose: 40 meq Pregabalin (Lyrica) 75 mg PO DAILY [facility] Last Admin: 08/10/17 11:02 Dose: 75 mg Tramadol HCl (Ultram) 50 mg PO Q6 PRN PRN Reason: Pain, moderate (4-7) Last Admin: 08/10/17 11:12 Dose: 50 mg - Labs Labs: 08/09/17 06:38 08/09/17 06:38 PT 12.5 Seconds (9.9-11.8) H 08/04/17 06:07 INR 1.16 (0.93-1.08) H 08/04/17 06:07 APTT 34.3 Seconds (23.7-30.8) H 08/04/17 06:07 - Constitutional Appears: No Acute Distress - Head Exam Head Exam: NORMOCEPHALIC - Eye Exam Eye Exam: Normal appearance - ENT Exam ENT Exam: Mucous Membranes Moist - Neck Exam Neck Exam: Normal Inspection - Respiratory Exam Respiratory Exam: NORMAL BREATHING PATTERN. absent: Respiratory Distress - Cardiovascular Exam Cardiovascular Exam: +S1, +S2 - GI/Abdominal Exam GI & Abdominal Exam: Soft, Normal Bowel Sounds. absent: Guarding, Tenderness, Rebound - Extremities Exam Extremities Exam: Normal Capillary Refill. absent: Calf Tenderness, Pedal Edema - Neurological Exam Neurological Exam: Alert, Awake, Oriented x3 - Skin Skin Exam: Dry, Warm Assessment and Plan - Assessment and Plan (Free Text) Assessment: Assessment: Metastatic pancreatic cancer Sepsis, likely from port, s/p antiobiotis Chronic diarrhea likely secondary to pancreatic insufficiency, improved Blood per rectum, bleeding scan negative Anemia status post packed RBC Internal jugular vein thrombosis Plan: on ceftriaxone IV on gentamycin via port Diet as tolerated Continue pancreatic enzymes On heparin pain control continue PPI Monitor H&H and for overt GI bleed Seen and discussed with Dr. Merchant.
--- NOTE | 2017-08-10 20:42 | PN ---
DATE: SUBJECTIVE: This is a 66-year-old female. The patient is seen and examined on the bedside, looking comfortable. Still having abdominal pain, getting pain medication. No nausea, vomiting. No diarrhea. Having formed bowel movements. No melena. No hematuria. No hematochezia. Tolerating the food very well. No new complaints. Getting IV antibiotics. PHYSICAL EXAMINATION VITAL SIGNS: Temperature 98.9, pulse 91, respiratory rate 20, blood pressure 153/99. HEENT: Head normocephalic and atraumatic. Eyes: PERRLA. Extraocular muscles intact. Conjunctivae clear. Nose patent. NECK: Supple. No carotid bruit. No JVD or thyromegaly. CHEST: Bilaterally symmetrical. HEART: S1 and S2 positive. LUNGS: Clear to auscultation. ABDOMEN: Soft. Bowel sounds present. No organomegaly. EXTREMITIES: No edema. No cyanosis. NEUROLOGIC: The patient is awake and alert. Moving all 4 extremities. No focal deficits. MEDICATIONS: Xanax, amylase with lipase, multivitamins, heparin, hydromorphone, gentamicin, insulin, Zofran, Protonix, potassium. LABORATORY DATA: White blood cells 11.1, hemoglobin 8.8, hematocrit 27.1, platelets 276. Sodium 143, potassium 3.3, BUN 7, creatinine 0.6, glucose 106. ASSESSMENT AND PLAN: Ms. Hortensia Love is a 66 years old lady with leukocytosis, anemia, hypokalemia, replaced, history of pancreatic cancer with metastases to the liver, lungs, sepsis likely from port, has p.o. antibiotics, still getting antibiotics, diarrhea likely secondary to the pancreatic insufficiency, improved with lipase/Pancrease. Blood per rectum, bleeding scan negative. No more bleeding. Anemia status post packed RBC transfusion. Internal jugular vein thrombosis, history of diabetes mellitus, chronic pain syndrome, history of smoking, ethanol abuse, hepatitis C. We will continue IV antibiotics. Ceftriaxone/erythromycin. Diet as tolerated. Continue pancreatic enzymes, on heparin drip. Pain management. Continue PPI. Monitor H and H for overt GI bleeding. GI/DVT prophylaxis. Repeat labs. We will followup. Georgina Ferrara MD [facility] # [id number] [facility]
[2017-08-11] MEDS: HYDROmorphone 0.5 mg/0.5 ml ISec IVP PRN ×4 (01:05→13:33)
[2017-08-11] MEDS: Albuterol-Ipratrop 3 mg / 0.5 (3 ml) UD IH SCH ×3 (01:16→13:47)
--- NOTE | 2017-08-11 01:31 | PN ---
PULMONARY PROGRESS NOTE DATE: 08/10/2017 REFERRING PHYSICIAN: Georgina Ferrara MD SUBJECTIVE: She is lying in the bed, head at 45 degrees. Night was unremarkable. No headache. No rhinitis. No nausea. Does have some abdominal pain. No leg pain or leg swelling. OBJECTIVE: GENERAL: In no acute distress. VITAL SIGNS: Temperature is 98, heart rate 95, respiratory rate is 20, blood pressure 147/91, and pulse ox is 96% on room air. HEENT: Moist mucous membranes. Crowded airway. Mallampati score is IV. NECK: Supple. No JVD. LUNGS: Has fair airflow with few rhonchi. HEART: S1 and S2. ABDOMEN: Positive bowel sounds. Positive epigastric tenderness. EXTREMITIES: There is no edema. NEUROLOGIC: Awake and alert. Follows simple commands. MEDICATIONS: She is on Dilaudid 0.25 mg q. 4 hours p.r.n., DuoNeb q. 6 hours, gentamicin IV, also received heparin 5000 units subcutaneous q. 12 hours, insulin coverage, potassium 20 mEq daily, Lyrica 75 mg daily, calcium plus vitamin D one tab daily, pancreas/amylase 10,000 units with meals, Protonix 40 mg daily, Rocephin 2 g daily, Ultram 50 mg q. 6 hours p.r.n., Xanax 0.5 mg daily and also Xanax 1 mg at bedtime, and Zofran p.r.n. basis. LABORATORY DATA: No new lab is available since yesterday. Repeat blood cultures have been negative. IMPRESSION AND PLAN: Resolving bacteremia, has a Port-A-Cath, metastatic adenocarcinoma, metastases to the liver, lungs, pancreatic head, obstructive ductal system requiring stent, diabetes, chronic lung disease, hypertension, history of hepatitis C, gastroesophageal reflux disease. Infectious Disease notes reviewed. Recommended antibiotics a total of 21 days. The patient is a poor candidate to take off the [id number]. Repeat cultures have been negative and seems like she is responding well to antibiotics. The patient agree with the decision to continue antibiotics. If discharged, need to complete 21 days of antibiotics. Thank you and we will follow with you. Linnea Stephen MD [facility] # [id number]
[2017-08-11] MEDS: Pantoprazole 40 mg EC Tab PO SCH (05:00)
[2017-08-11 06:17] VITALS: O2SAT 95
[2017-08-11] MEDS: Insulin Reg-LOW-Coverage SC SCH ×3 (08:05→16:35)
[2017-08-11] MEDS: Potassium Chloride 20 mEq ER Tab PO SCH (08:06)
[2017-08-11] MEDS: Amylase/Lipase/Protease 5,000 U ECC PO SCH ×3 (08:07→16:36)
--- NOTE | 2017-08-11 11:40 | CP.PCM.PN ---
Subjective - Date & Time of Evaluation Date of Evaluation: 08/11/17 Time of Evaluation: 09:15 - Subjective Subjective: Seen and examined at the bedside earlier today, the patient with no new complaints. No acute events overnight. Continue to tolerate oral intake. Denies nausea, vomiting, shortness of breath or chest pain. Continues to have soft BM no reports of bleeding per rectum. Patient reports she is feeling better. Objective - Vital Signs/Intake and Output Vital Signs (last 24 hours): Temp Pulse Resp BP Pulse Ox 97.5 F L 88 20 138/83 95 08/11/17 06:00 08/11/17 06:00 08/11/17 06:00 08/11/17 06:00 08/11/17 06:00 Intake and Output: 08/11/17 08/11/17 06:59 18:59 Intake Total 570 Output Total 87348 Balance -9430 - Medications Medications: Current Medications Albuterol/Ipratropium (Duoneb 3 Mg/0.5 Mg (3 Ml) Ud) 3 ml IH [id number] [facility] Last Admin: 08/11/17 08:23 Dose: Not Given Alprazolam (Xanax) 0.5 mg PO DAILY [facility] PRN Reason: Protocol Last Admin: 08/10/17 11:02 Dose: 0.5 mg Alprazolam (Xanax) 1 mg PO HS [facility] PRN Reason: Protocol Last Admin: 08/10/17 20:59 Dose: 1 mg Amylase (Pancrease 88638 U-5000 [id number] U) 10,000 u PO WM [facility] Last Admin: 08/11/17 08:07 Dose: 10,000 u Calcium/Vitamin D (Oscal-D 250 Mg-125 Units Tab) 1 tab PO DAILY [facility] Last Admin: 08/10/17 11:03 Dose: 1 tab Heparin Sodium (Porcine) (Heparin) 5,000 units SC Q12 [facility]NEY PRN Reason: Protocol Last Admin: 08/10/17 20:59 Dose: 5,000 units Hydromorphone HCl (Dilaudid) 0.25 mg IVP Q4H PRN PRN Reason: Pain, Mild (1-3) Last Admin: 08/11/17 09:09 Dose: 0.25 mg Gentamicin Sulfate 2 mg/Heparin Sodium (Porcine) 5,000 units/ Sodium Chloride 2 mls @ 2 mls/min CVC Q48H [facility] Stop: 08/23/17 18:01 Last Admin: 08/09/17 19:55 Dose: 2 mls/min Insulin Human Regular (Humulin R Low) 0 units SC ACHS BRITTNEY PRN Reason: Protocol Last Admin: 08/11/17 08:05 Dose: Not Given Ondansetron HCl (Zofran Inj) 4 mg IVP Q6H PRN PRN Reason: Nausea/Vomiting Last Admin: 08/10/17 11:11 Dose: 4 mg Pantoprazole Sodium (Protonix Ec Tab) 40 mg PO 0600 [facility] Last Admin: 08/11/17 05:00 Dose: 40 mg Potassium Chloride (K-Dur 20 Meq Er Tab) 40 meq PO BRK [facility] Last Admin: 08/11/17 08:06 Dose: 40 meq Pregabalin (Lyrica) 75 mg PO DAILY [facility] Last Admin: 08/10/17 11:02 Dose: 75 mg Tramadol HCl (Ultram) 50 mg PO Q6 PRN PRN Reason: Pain, moderate (4-7) Last Admin: 08/10/17 11:12 Dose: 50 mg - Labs Labs: 08/09/17 06:38 08/09/17 06:38 PT 12.5 Seconds (9.9-11.8) H 08/04/17 06:07 INR 1.16 (0.93-1.08) H 08/04/17 06:07 APTT 34.3 Seconds (23.7-30.8) H 08/04/17 06:07 - Constitutional Appears: No Acute Distress - Head Exam Head Exam: NORMOCEPHALIC - Eye Exam Eye Exam: Normal appearance. absent: Scleral icterus - ENT Exam ENT Exam: Mucous Membranes Moist - Neck Exam Neck Exam: Normal Inspection - Respiratory Exam Respiratory Exam: Clear to Ausculation Bilateral, NORMAL BREATHING PATTERN. absent: Respiratory Distress - Cardiovascular Exam Cardiovascular Exam: +S1, +S2 - GI/Abdominal Exam GI & Abdominal Exam: Soft, Tenderness, Normal Bowel Sounds. absent: Guarding, Rebound - Extremities Exam Extremities Exam: Normal Capillary Refill, Pedal Edema (mild have teds on). absent: Calf Tenderness - Neurological Exam Neurological Exam: Alert, Awake, Oriented x3 - Skin Skin Exam: Dry, Warm Assessment and Plan - Assessment and Plan (Free Text) Assessment: Assessment: Metastatic pancreatic cancer Sepsis, likely from port, s/p antiobiotis Chronic diarrhea likely secondary to pancreatic insufficiency, improved Blood per rectum, bleeding scan negative Anemia status post packed RBC Internal jugular vein thrombosis Plan: On IV antibiotics on gentamycin Diet as tolerated Continue pancreatic enzymes On heparin pain control continue PPI Monitor H&H and for overt GI bleed Seen and discussed with Dr. Merchant.
[2017-08-11] MEDS: cefTRIAXone 2 GM IN NS 2 GM/100 ML BAG IVPB SCH (11:47)
[2017-08-11] MEDS: Calcium-Vit D 250 mg-125 Units Tab UD PO SCH (11:48)
[2017-08-11 12:10] VITALS: BP 102/62; RESP 16; TEMP 98.1
--- NOTE | 2017-08-11 12:24 | EEG ---
CONDITION OF THE RECORDING: Awake and history of syncopal episode. PAST MEDICAL HISTORY: Pancreatic CA, status post stent placement. MEDICATIONS: Xanax, Dilaudid, and Lyrica. DESCRIPTION: Background activity of this tracing was composed of 8 to 9 cycles per second. Alpha rhythm was small amount. Beta activity 16 to 20 cycles per second was noted in the tracing. Theta activity 5 to 7 cycles per second was noted in the tracing. Drowsiness was composed of mixed beta and theta activity. Photic stimulation does not change in record. No paroxysmal activity was seen in the record. IMPRESSION: Normal awake, drowsy EEG. Ean Gillis MD
[2017-08-11] MEDS ORDERED: cefTRIAXone 2 GM IN NS 2 GM/100 ML BAG IVPB SCH (14:45)
[2017-08-11 15:26] VITALS: PULSE 92
--- NOTE | 2017-08-11 16:08 | PN ---
SUBJECTIVE: The patient is in bed in no acute distress, nontoxic. PHYSICAL EXAMINATION: VITAL SIGNS: Temperature is 97, blood pressure is 102/60 and respiratory rate of 18. HEENT: Unremarkable. NECK: Supple. LUNGS: Decreased breath sounds. HEART: Normal S1 and S2. ABDOMEN: Soft. LABORATORY DATA: Reveals a white count of 11,000, hemoglobin of 8 and creatinine is 0.6. Microbiology is noted. Review of orders reveals the patient to be on ceftriaxone and gentamicin lock. ASSESSMENT AND PLAN: This is a 66 year old female with sepsis secondary to Klebsiella bacteremia, Port-A-Cath infection, no evidence of urinary tract infection, no evidence of intra abdominal infection, and negative HIDA scan, most likely the Port A Cath, but it is associated with thrombus. Case discussed with Dr. 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 It is unclear why the ceftriaxone was discontinued, we will restart the ceftriaxone. Luc Lynn MD
[2017-08-11] MEDS: HEPARIN CVC SCH (16:36)
[2017-08-11] MEDS: SODIUM CHLORIDE 0.9% CVC SCH (16:36)
[2017-08-11] MEDS: GENTAMICIN SULFATE CVC SCH (16:36)
--- NOTE | 2017-08-11 16:45 | PN ---
DATE: 08/11/2017 PULMONARY PROGRESS NOTE REFERRING PHYSICIAN: Dr. Ferrara. SUBJECTIVE: The patient is lying in the bed. Getting left upper extremity midline IV access. Plan is to go home on antibiotics. She wants to go home. No headache. No rhinitis. No nausea. No vomiting. Mild abdominal pain. No dysuria, leg pain or leg swelling. OBJECTIVE: GENERAL: In no acute distress. VITAL SIGNS: Temperature is 98, heart rate is 58, respiratory rate is 20, blood pressure 102/62, pulse ox 95% on room air. HEENT: Moist mucous membranes. No oral thrush noted. NECK: Supple. No JVD. LUNGS: Has a fair airflow with rhonchi. HEART: S1 and S2. ABDOMEN: Positive bowel, epigastric tenderness. EXTREMITIES: There is no edema. NEUROLOGIC: Awake and alert. Follows simple commands. MEDICATIONS: She is on Dilaudid 0.25 mg IV q. 4 hours p.r.n., DuoNeb q. 6 hours, heparin 5000 units subQ q. 12 hours, insulin coverage, potassium 20 mEq daily, Lyrica 75 mg daily, vitamin D and calcium daily, Pancrease 10,000 units with meals, Protonix 40 mg daily, Rocephin 2 g IV daily, Ultram 50 mg q. 6 hours p.r.n., Xanax 0.5 mg daily and 1 mg at bedtime, Zofran p.r.n. basis. LABORATORY DATA: Shows blood sugar was 152. IMPRESSION AND PLAN: Resolving bacteremia, has a Port-A-Cath, metastatic adenocarcinoma, metastases to the liver, lungs, pancreas and ductal system requiring stent, chronic lung disease, hypertension, history of hepatitis C, gastroesophageal reflux disease and has a deep venous thrombosis in right internal jugular. Anticoagulation was discontinued because of rectal bleed. Decision was made to keep her off anticoagulation understanding the risks and benefits. The patient agrees with plan. Also [id number]-[id number] was not taken out because of the risks, benefits ratio. The patient is high risk for another Ayoi-M-psfagowl placement. So, decision was made to treat the patient with antibiotics for next 3 weeks. Keep close eyes for further thrombosis of Port-A-Cath. Will follow as outpatient with oncology. Thank you and we will follow with you. Linnea Stephen MD [facility] # [id number]
== END 2017-08-11 18:00 | disposition home or self-care (01) | DRG 314 ==
LOC: ED 05:48 → ERH 09:56 → 2RNO 11:32
PROVIDERS: ADMIT Internal Medicine; ATTEND Internal Medicine
PROC: 30233N1 Transfusion of Nonautologous Red Blood Cells into Peripheral Vein, Percutaneous Approach (ICD-10-PCS; 2017-08-04)
PROC: 06HY33Z Insertion of Infusion Device into Lower Vein, Percutaneous Approach (ICD-10-PCS; principal; 2017-08-11)
DX: T80.218A Other infection due to central venous catheter, initial encounter (principal); A41.59 Other Gram-negative sepsis; T82.868A Thrombosis due to vascular prosthetic devices, implants and grafts, initial encounter; I82.C11 Acute embolism and thrombosis of right internal jugular vein; C25.9 Malignant neoplasm of pancreas, unspecified; C78.7 Secondary malignant neoplasm of liver and intrahepatic bile duct; C78.00 Secondary malignant neoplasm of unspecified lung; C78.6 Secondary malignant neoplasm of retroperitoneum and peritoneum; K62.5 Hemorrhage of anus and rectum; E11.22 Type 2 diabetes mellitus with diabetic chronic kidney disease; E83.51 Hypocalcemia; E83.41 Hypermagnesemia; J44.9 Chronic obstructive pulmonary disease, unspecified; I12.9 Hypertensive chronic kidney disease with stage 1 through stage 4 chronic kidney disease, or unspecified chronic kidney disease; N18.9 Chronic kidney disease, unspecified; B18.2 Chronic viral hepatitis C; R55 Syncope and collapse; D64.9 Anemia, unspecified; E11.65 Type 2 diabetes mellitus with hyperglycemia; E83.39 Other disorders of phosphorus metabolism; E87.6 Hypokalemia; E11.649 Type 2 diabetes mellitus with hypoglycemia without coma; K86.81 Exocrine pancreatic insufficiency; K52.89 Other specified noninfective gastroenteritis and colitis; R31.9 Hematuria, unspecified; Y83.8 Other surgical procedures as the cause of abnormal reaction of the patient, or of later complication, without mention of misadventure at the time of the procedure; K21.9 Gastro-esophageal reflux disease without esophagitis; F39 Unspecified mood [affective] disorder; G89.3 Neoplasm related pain (acute) (chronic); G89.4 Chronic pain syndrome; Z87.891 Personal history of nicotine dependence; Z86.73 Personal history of transient ischemic attack (TIA), and cerebral infarction without residual deficits; Z79.84 Long term (current) use of oral hypoglycemic drugs

== ENCOUNTER 2017-09-01 14:27 | Inpatient (IN) | payer MEDICARE, OTHER ==
[2017-09-01 14:38] VITALS: BMI 32.4
--- NOTE | 2017-09-01 15:20 | RAD ---
HISTORY: admission COMPARISON: 07/30/2017 FINDINGS: LUNGS: Slight decrease in size of pulmonary nodules PLEURA: No significant pleural effusion identified, no pneumothorax apparent. CARDIOVASCULAR: Normal. OSSEOUS STRUCTURES: No significant abnormalities. VISUALIZED UPPER ABDOMEN: Normal. OTHER FINDINGS: None. IMPRESSION: Slight decrease in size of pulmonary nodules.
[2017-09-01 15:24] LABS: BASO # 0.03 K/mm3 (0.0-2.0); BASO % 0.2 % (0.0-3.0); EOS # 0.2 (0.0-0.7); EOS % 1.5 % (1.5-5.0); GRAN # 9.95 (1.4-6.5); GRAN % 76.2 % (50.0-68.0); HEMATOCRIT 36.4 % (36.0-48.0); LYMPH # 2.2 (1.2-3.4); MEAN CELL VOLUME 88.3 fl (80.0-105.0); MEAN CORPUSCULAR HEMOGLOBIN 28.2 pg (25.0-35.0); MEAN CORPUSCULAR HGB CONC 31.9 g/dl (31.0-37.0); MEAN PLATELET VOLUME 9.3 fl (7.0-11.0); MONO # 0.7 (0.1-0.6); MONO % 5.1 % (1.0-6.0); RED CELL DISTRIBUTION WIDTH 16.4 % (11.5-14.5); WHITE BLOOD COUNT 13.1 10^3/ul (4.5-11.0)
[2017-09-01 15:25] LABS: VENOUS BLOOD GAS BASE EXCESS 7.2 mmol/L (0.0-2.0); VENOUS BLOOD PH 7.44 (7.32-7.43)
[2017-09-01 15:33] LABS: ALB/GLOB RATIO 0.9 (1.1-1.8); ALKALINE PHOSPHATASE 125 U/L (38-126); ALT/SGPT 22 U/L (7-56); AMYLASE 126 U/L (35-125); AST/SGOT 28 U/L (14-36); BILIRUBIN,TOTAL 0.7 mg/dL (0.2-1.3); BLOOD UREA NITROGEN 4 mg/dL (7-21); CALCIUM 9.4 mg/dL (8.4-10.5); CARBON DIOXIDE 32 mmol/L (21-33); CHLORIDE 101 mmol/L (98-107); GFR AFRICAN-AMERICAN > 60; GLUCOSE,RANDOM 135 mg/dL (70-110); LIPASE 734 U/L (23-300); SODIUM 143 mmol/L (132-148); TOTAL PROTEIN 7.8 g/dL (5.8-8.3)
[2017-09-01 15:34] LABS: POTASSIUM 2.9 mmol/L (3.6-5.0)
[2017-09-01 15:45] LABS: TROPONIN I < 0.01 ng/mL
[2017-09-01] MEDS ORDERED: Potassium Chloride 20 mEq ER Tab PO STA (15:59)
--- NOTE | 2017-09-01 16:13 | ED PDOC ---
Arrival/HPI - General Historian: Patient <Hannah Love - Last Filed: 09/01/17 17:20> <Rudy Abdi - Last Filed: 09/01/17 23:07> - General Chief Complaint: Abnormal Labs Time Seen by Provider: 09/01/17 14:47 - History of Present Illness Narrative History of Present Illness (Text): 09/01/17 16:09 57yo female with Past medical history of hypertension, Pancreatic CA and was recently treated for sepsis referred to emergency department by here PMD for admission. Patient notes that she was sent to emergency department for hypokalemia and increase T Cells. She notes dizziness, global weakness, loss of appetite , SOB with exertion for the past few days. She reports chronic nonproductive cough. She stopped chemo, when she was diagnosed with sepsis. She is due for her last gentamicin today. Have port in place. +Diarrhea x days. She denies fever, chills, chest pain, headache, visual changes, vomiting, focal weakness, sick contact. (Hannah Love) Past Medical History - Provider Review Nursing Documentation Reviewed: Yes - Infectious Disease Hx of Infectious Diseases: None - Tetanus Immunization Tetanus Immunization: Unknown - Cardiac Hx Cardiac Disorders: Yes Hx Hypertension: Yes - Pulmonary Hx Respiratory Disorders: Yes Hx Emphysema: Yes - Neurological Hx Neurological Disorder: Yes Hx Transient Ischemic Attacks (TIA): Yes - HEENT Hx HEENT Disorder: No - Renal Hx Renal Disorder: No - Endocrine/Metabolic Hx Endocrine Disorders: Yes Hx Diabetes Mellitus Type 1: Yes - Hematological/Oncological Hx Blood Disorders: Yes Hx Cancer: Yes (pancreatic) Hx Hepatitis C: Yes (hx of) - Integumentary Hx Dermatological Disorder: No - Musculoskeletal/Rheumatological Hx Musculoskeletal Disorders: Yes Hx Degenerative Joint Disease: Yes Hx Falls: Yes - Gastrointestinal Hx Gastrointestinal Disorders: Yes (COLON SURGERY,APPENDECTOMY,COLON RESECTION, LIVER BX) Hx Gastroesophageal Reflux: Yes - Genitourinary/Gynecological Hx Genitourinary Disorders: Yes Hx Hematuria: Yes - Psychiatric Hx Psychophysiologic Disorder: Yes Hx Anxiety: Yes Hx Depression: Yes Hx Substance Use: No - Past Surgical History Past Surgical History: No Previous - Surgical History Hx Appendectomy: Yes Other/Comment: colon resection, liver bx. R chest port. PICC L arm - Anesthesia Hx Anesthesia: Yes Hx Anesthesia Reactions: No Hx Malignant Hyperthermia: No - Suicidal Assessment Feels Threatened In Home Enviroment: No <DirlizzHappiness A - Last Filed: 09/01/17 17:20> Family/Social History - Physician Review Nursing Documentation Reviewed: Yes Family/Social History: Unknown Family HX Smoking Status: Former Smoker Hx Alcohol Use: No Hx Substance Use: No Hx Substance Use Treatment: No <DiruHappiness A - Last Filed: 09/01/17 17:20> Allergies/Home Meds <Hannah Love A - Last Filed: 09/01/17 17:20> <TrinidadFlorentinobeatriz - Last Filed: 09/01/17 23:07> Allergies/Adverse Reactions: Allergies No Known Allergies Allergy (Verified 09/01/17 14:37) Home Medications: Home Meds Medication Instructions Recorded Confirmed ALPRAZolam [Xanax] 1 mg PO HS 04/21/17 09/01/17 Alprazolam [Xanax] 0.5 mg PO DAILY 04/21/17 09/01/17 Furosemide [Lasix] 40 mg PO DAILY 04/21/17 09/01/17 Glipizide [Glipizide ER] 10 mg PO DAILY 04/21/17 09/01/17 Levocetirizine Dihydrochloride 5 mg PO DAILY 04/21/17 09/01/17 [Xyzal] Lisinopril [Zestril] 10 mg PO DAILY 04/21/17 09/01/17 Metoprolol Tartrate [Lopressor] 25 mg PO DAILY 04/21/17 09/01/17 Montelukast [Singulair] 10 mg PO DAILY 04/21/17 09/01/17 Morphine Sulfate [Morphine Sulfate 15 mg PO PRN PRN 07/18/17 09/01/17 ER] Ondansetron HCl [Zofran] 8 mg PO Q6 PRN 07/18/17 09/01/17 Pregabalin [Lyrica] 75 mg PO DAILY 07/18/17 09/01/17 Fentanyl [Subsys] 1 spray IH DAILY 09/01/17 09/01/17 Gentamicin [Gentamicin] 2 mg IV Q48H 09/01/17 09/01/17 cefTRIAXone [Rocephin] 2 gm IV DAILY 09/01/17 09/01/17 Review of Systems - Physician Review All systems were reviewed & negative as marked: Yes - Review of Systems Constitutional: Normal Eyes: Normal ENT: Normal Respiratory: SOB, Cough. absent: Sputum Cardiovascular: Normal. absent: Calf Pain Gastrointestinal: Abdominal Pain, Diarrhea, Nausea. absent: Constipation, Vomiting, Hematochezia, Hematemesis Genitourinary Female: Normal Musculoskeletal: Normal Skin: Normal Neurological: Dizziness. absent: Headache, Focal Weakness Endocrine: Normal Hemo/Lymphatic: Normal Psychiatric: Normal <Diru,Happiness A - Last Filed: 09/01/17 17:20> Vital Signs Temp Pulse Resp BP Pulse Ox 09/01/17 16:33 90 20 160/76 H 100 09/01/17 14:42 97.8 F 93 H 18 135/100 H 96 - Lab Interpretations Lab Results: 09/01/17 15:00 09/01/17 15:00 Lab Results 09/01/17 16:00: PT 12.9 H, INR 1.18 H, APTT 58.3 H 09/01/17 15:00: pO2 55, VBG pH 7.44 H, VBG pCO2 48.0, VBG HCO3 32.6 H, VBG Total CO2 34.1 H, VBG O2 Sat (Calc) 91.8 H, VBG Base Excess 7.2 H, VBG Potassium 2.8 L, Sodium 142.0, Chloride 103.0, Glucose 135 H, Lactate 1.3, FiO2 21.0, Venous Blood Potassium 2.8 L 09/01/17 15:00: Sodium 143, Chloride 101, Potassium 2.9 L*, Carbon Dioxide 32, Anion Gap 13, BUN 4 L, Creatinine 0.6 L, Est GFR ( Amer) > 60, Est GFR ( Non-Af Amer) > 60, Random Glucose 135 H, Calcium 9.4, Total Bilirubin 0.7, AST 28, ALT 22, Alkaline Phosphatase 125, Lactate Dehydrogenase 421, Total Creatine Kinase 59, Troponin I < 0.01 D, Total Protein 7.8, Albumin 3.7, Globulin 4.1, Albumin/Globulin Ratio 0.9 L, Amylase 126 H, Lipase 734 H 09/01/17 15:00: WBC 13.1 H, RBC 4.12, Hgb 11.6 L D, Hct 36.4, MCV 88.3, MCH 28.2 , MCHC 31.9, RDW 16.4 H, Plt Count 264, MPV 9.3, Gran % 76.2 H, Lymph % (Auto) 17.0 L, [place] % (Auto) 5.1, Eos % (Auto) 1.5, Baso % (Auto) 0.2, Gran # 9.95 H, Lymph # 2.2, [place] # 0.7 H, Eos # 0.2, Baso # 0.03 - RAD Interpretation Radiology Orders: 09/01/17 15:04 CHEST PORTABLE [RAD] Stat - Medication Orders Current Medication Orders: Alprazolam (Xanax) 0.5 mg PO DAILY BRITTNEY PRN Reason: Protocol Furosemide (Lasix) 40 mg PO DAILY [facility] Gentamicin Sulfate (Gentamicin) 2 mg IVPB Q48H [facility]ITT[facility] PRN Reason: Protocol Glipizide (Glucotrol Xl) 10 mg PO DAILY [facility] Ceftriaxone Sodium (Rocephin 2 Gm Ivpb) 2 gm in 100 mls @ 100 mls/hr IVPB DAILY [facility] Insulin Human Regular (Humulin R Low) 0 units SC ACHS BRITTNEY PRN Reason: Protocol Last Admin: 09/01/17 22:15 Dose: Not Given Non-Admin Reason: Blood Sugar Parameter [facility] Blood Glucose Document 09/01/17 22:15 AP (Rec: 09/01/17 22:15 AP [id number]) Blood Glucose Finger Stick Blood Glucose (70-120) 120 Lisinopril (Zestril) 10 mg PO DAILY [facility] Loratadine (Claritin) 10 mg PO DAILY [facility] Metoprolol Tartrate (Lopressor) 25 mg PO BRK [facility] Montelukast Sodium (Singulair) 10 mg PO DAILY [facility] Morphine Sulfate (Morphine Immediate Release Tab) 15 mg PO Q4H PRN PRN Reason: Pain, moderate (4-7) Last Admin: 09/01/17 21:08 Dose: 15 mg [facility] Pain Assessment Document 09/01/17 21:08 AP (Rec: 09/01/17 21:08 AP [id number]) Pain Reassessment Is this a pain reassessment? No Presence of Pain Presence of Pain Yes Pain Scale Used Pain Scale Used Numeric Location Upper or Lower Upper Pain Location Body Site Abdomen Description Description Constant Intensity of Pain at present 6 Pain Behavior Irritability Alleviating Factors/Management Medication Techniques Re-Assess: [facility] Pain Assessment Document 09/01/17 22:08 AP (Rec: 09/01/17 22:15 AP [id number]) Pain Reassessment Is this a pain reassessment? Yes Presence of Pain Presence of Pain No Description Intensity of Pain at present 2 (Fentanyl [Subsys] 1 ([place])) 1 spray PO DAILY [facility] Ondansetron HCl (Zofran Inj) 4 mg IVP Q6H PRN PRN Reason: Nausea/Vomiting Last Admin: 09/01/17 21:10 Dose: 4 mg IVP Administration Document 09/01/17 21:10 AP (Rec: 09/01/17 21:10 AP [id number]) Charges for Administration # of IVP Administrations 1 Pantoprazole Sodium (Protonix Ec Tab) 40 mg PO DAILY [facility] Pregabalin (Lyrica) 75 mg PO DAILY [facility] Discontinued Medications Potassium Chloride (Potassium Chloride 20 Meq/100 Ml) 20 meq in 100 mls @ 50 mls/hr IVPB ONCE ONE Stop: 09/01/17 17:58 Last Admin: 09/01/17 16:08 Dose: 50 mls/hr eMAR Start Stop Document 09/01/17 16:08 CNR (Rec: 09/01/17 16:08 CNR [facility] [id number] Intravenous Solution Start Date 09/01/17 Start Time 16:08 Morphine Sulfate (Morphine) 4 mg IVP STAT STA Stop: 09/01/17 17:00 Last Admin: 09/01/17 17:06 Dose: 4 mg MAR Pain Assessment Document 09/01/17 17:06 SRE (Rec: 09/01/17 17:06 SRE [id number]) Pain Reassessment Is this a pain reassessment? Yes Sleep Is patient sleeping during reassessment? No Presence of Pain Presence of Pain Yes Pain Scale Used Pain Scale Used Numeric Location Pain Location Body Site Abdomen Description Description Intermittent IVP Administration Document 09/01/17 17:06 SRE (Rec: 09/01/17 17:06 SRE [id number]) Charges for Administration # of IVP Administrations 1 Pneumococcal Polyvalent Vaccine (Pneumovax 23 Vaccine) 0.5 ml IM .ONCE ONE Stop: 09/01/17 20:23 Last Admin: 09/01/17 20:38 Dose: Potassium Chloride (K-Dur 20 Meq Er Tab) 40 meq PO STAT STA Stop: 09/01/17 16:00 Last Admin: 09/01/17 16:08 Dose: 40 meq - PA / [employer]HICLE LICENSE CLERK / Resident Statement MD/DO has reviewed & agrees with the documentation as recorded. <Rudy Abdi - Last Filed: 09/01/17 23:07> Disposition/Present on Arrival - Present on Arrival Any Indicators Present on Arrival: No History of DVT/PE: Yes History of Uncontrolled Diabetes: No Urinary Catheter: No History of Decub. Ulcer: No History Surgical Site Infection Following: None - Disposition Have Diagnosis and Disposition been Completed?: Yes Disposition Time: 16:20 <Hannah Love - Last Filed: 09/01/17 17:20> <Rudy Abdi - Last Filed: 09/01/17 23:07> - Disposition Diagnosis: Hypokalemia, Malignant tumor head pancreas, Intractable nausea and vomiting Disposition: HOSPITALIZED Patient Problems: Current Active Problems Problem Status Onset Hypokalemia Acute Intractable nausea and vomiting Acute Malignant tumor head pancreas Acute Condition: FAIR
[2017-09-01 16:29] LABS: INR 1.18 (0.93-1.08); PARTIAL THROMBOPLASTIN TIME 58.3 Seconds (25.1-36.5)
[2017-09-01] MEDS ORDERED: Morphine 4 mg/ml ISec IVP STA (16:59)
[2017-09-01] MEDS ORDERED: Gentamicin 80 mg/2mL Inj. IVPB SCH (19:15)
[2017-09-01] MEDS ORDERED: Influenza Vaccine 60 mcg/0.5 mL SYR (4YR UP) IM ONE (20:22)
[2017-09-01] MEDS ORDERED: Pneumococcal 23-Valent Vaccine IM ONE (20:22)
[2017-09-01] MEDS: Morphine 15 mg Immediate Release Tab PO PRN (21:08)
[2017-09-01] MEDS: Insulin Reg-LOW-Coverage SC SCH (22:15)
--- NOTE | 2017-09-01 22:59 | HP ---
CHIEF COMPLAINT: Abdominal pain, abnormal labs and nauseousness. HISTORY OF PRESENT ILLNESS: Ms. Hortensia Love is a 67-year-old female with past medical history of hypertension, pancreatic cancer, previously got treatment for sepsis, was getting home infusion with antibiotics, and was getting weekly labs. The patient was informed by the insurance company or may be visiting nurse about her abnormal labs, potassium is low and as per the patient, she has abdominal pain and her home medication is not helping. She is feeling nauseous, weak, loss of appetite and shortness of breath with exertion for the past few days. She reports chronic nonproductive cough. She stopped chemo when she was diagnosed with sepsis. She is due to her last gentamicin today. Has got increased positive diarrhea. Denies fevers, chest pain, constipation, headache or visual changes. PAST MEDICAL HISTORY: Hypertension, emphysema, TIA, diabetes mellitus, pancreatic cancer, hepatitis C, history of fall, colon surgery, appendectomy, colon resection, liver biopsy, anxiety, depression and appendectomy. FAMILY HISTORY: Father and mother noncontributory. HABITS: History of smoking, history of ethanol abuse as per patient, but she quit. Long history of drug abuse, but now not using. ALLERGIES: NO KNOWN ALLERGIES. HOME MEDICATIONS: Xanax, Lasix, glipizide, Zestril, metoprolol, Singulair, morphine, Zofran, Lyrica, fentanyl patch, gentamicin and Rocephin. REVIEW OF SYSTEMS: The patient is seen and examined on the bedside. Looking comfortable. No nausea, vomiting or diarrhea. No hematuria. No hematochezia. No swelling of the leg. No chest pain. No palpitation. No headache. No dizziness. Has anorexia. Not eating very well. Sometimes shortness of breath. PHYSICAL EXAMINATION: VITAL SIGNS: Temperature 97.8, pulse 93, respiratory rate 18, blood pressure 135/100 and pulse oximetry 96%. HEENT: Head is normocephalic and atraumatic. Eyes PERRLA. Extraocular muscles intact. Conjunctivae clear. Nose patent. Mucous membrane moist. NECK: Supple. No carotid bruits. No JVD. No thyromegaly. CHEST: Bilaterally symmetrical. HEART: S1 and S2 positive. LUNGS: Clear to auscultation. ABDOMEN: Soft. Bowel sounds positive. No organomegaly. EXTREMITIES: No edema. No cyanosis. NEUROLOGIC: The patient is awake and alert. Moving all four extremities. No focal deficits. LABORATORY DATA: White blood cell is 13.1, hemoglobin 11.6, hematocrit 36.4 and platelets 264. Sodium 143, potassium 2.9, BUN 4, creatinine 0.6 and glucose 135. ASSESSMENT AND PLAN: Ms. Hortensia Love is a 67-year-old lady with leukocytosis, anemia, hypokalemia, renal insufficiency, uncontrolled diabetes mellitus, emergency room replaced potassium, nauseousness, started Zofran, history of sepsis, getting antibiotics, call a consult with Dr. Lynn, history of hypertension, pancreatic carcinoma, hepatitis C, abnormal liver function test, noncompliance, history of heavy smoking, chronic obstructive pulmonary disease, asthma. Admitted the patient. Did labs. Restart her home medications. Discussion done with patient's nursing staff. We will follow. Georgina Ferrara MD MTDD
[2017-09-01] MEDS ORDERED: Vancomycin 1gm in NS 250ml 1 GM/250 ML BAG IVPB STA (23:22)
[2017-09-02] MEDS: Meropenem 1g/NS 100mL IVPB 1 GM/100 ML PIGGYBACK IVPB SCH ×4 (00:20→22:10)
[2017-09-02] MEDS: Morphine 15 mg Immediate Release Tab PO PRN ×4 (01:24→20:02)
[2017-09-02] MEDS: Insulin Reg-LOW-Coverage SC SCH ×5 (08:00→22:30)
--- NOTE | 2017-09-02 08:58 | CARD ---
APPROVED REPORT EKG Measurement Heart [id number] <Conclusion> Normal sinus rhythm NSSTW changes Prolonged QT No change except the rate is slower
[2017-09-02] MEDS: Pantoprazole 40 mg EC Tab PO SCH (09:24)
[2017-09-02] MEDS: GlipiZIDE 10 mg SR Tab PO SCH (09:29)
[2017-09-02] MEDS: FENTANYL PO SCH (09:30)
[2017-09-02 09:41] LABS: PH,URINE 6.5 (4.7-8.0); URINE BILIRUBIN NEGATIVE (NEGATIVE); URINE BLOOD NEGATIVE (NEGATIVE); URINE GLUCOSE (UA) NEGATIVE (NEGATIVE); URINE KETONE TRACE mg/dL (NEGATIVE); URINE LEUKOCYTE ESTERASE MODERATE Leu/uL (NEGATIVE); URINE PROTEIN NEGATIVE mg/dL (<30 mg/dL); URINE UROBILINOGEN 0.2 E.U./dL (<1 E.U./dL)
[2017-09-02 09:51] LABS: URINE APPEARANCE SL CLOUDY (CLEAR); URINE COLOR YELLOW (YELLOW)
[2017-09-02 09:53] LABS: URINE BACTERIA FEW (NEG)
[2017-09-02] MEDS ORDERED: cefTRIAXone 2 gm in NS 100ml IVPB SCH (10:00)
[2017-09-02] MEDS ORDERED: cefTRIAXone (Rocephin) 2 gm Inj IVPB SCH (10:00)
--- NOTE | 2017-09-02 11:34 | CP.PCM.CON ---
History of Present Illness - History of Present Illness History of Present Illness: 67 year old female with PMH of pancreatic cancer, HTN, history of Hepatitis C, history of TIA, COPD was recently admitted in [facility] for Klebsiella bacteremia. Port infection could not be ruled out and she was placed on IV antibiotics together with antibiotic lock therapy. She was sent in this time for hypokalemia , lightheadedness, loose bowel movement for a few days now. She denies fever or chills, no pain along the port site, no abdominal pain, no chest pain, no SOB, no cough or rhinorrhea, no sore throat, no headache, no neck pain or stiffness. She states that she would get lightheaded when she takes her medicines in the morning. She denies blood in the stools, no mucus in the stools and has not eaten anything out of the ordinary. She was also noted to have leukocytosis in the ED and Infectious diseases consult is requested to further evaluate and manage. Review of Systems - Review of Systems All systems: reviewed and no additional remarkable complaints except (as per HPI ) Past Patient History - Infectious Disease Hx of Infectious Diseases: None - Tetanus Immunizations Tetanus Immunization: Unknown - Past Medical History & Family History Past Medical History?: Yes - Past Social History Smoking Status: Light Smoker < 10 Cigarettes Daily - CARDIAC Hx Cardiac Disorders: Yes Hx Hypercholesterolemia: Yes Hx Hypertension: Yes Other/Comment: pt thinks she may have had a dvt after tia, not sure - PULMONARY Hx Respiratory Disorders: Yes Hx Bronchitis: Yes Hx Chronic Obstructive Pulmonary Disease (COPD): Yes Hx Emphysema: Yes Hx Sleep Apnea: Yes (does not use c pap can't tolerate at night) - NEUROLOGICAL Hx Neurological Disorder: Yes Hx Dizziness: Yes Hx Transient Ischemic Attacks (TIA): Yes Other/Comment: pain numbness tingling to legs and inner thighs - HEENT Hx HEENT Problems: Yes (eyeglassses) - RENAL Hx Chronic Kidney Disease: No - ENDOCRINE/METABOLIC Hx Endocrine Disorders: Yes Hx Diabetes Mellitus Type 1: Yes - HEMATOLOGICAL/ONCOLOGICAL Hx Blood Disorders: Yes Hx Cancer: Yes (pancreatic stage 3) Hx Chemotherapy: Yes (last chemo given was 07/15/17 stopped due to sepsis) Hx Hepatitis C: Yes (hx of) - INTEGUMENTARY Hx Dermatological Problems: No - MUSCULOSKELETAL/RHEUMATOLOGICAL Hx Falls: No - GASTROINTESTINAL Hx Gastrointestinal Disorders: Yes (COLON SURGERY,APPENDECTOMY,COLON RESECTION, LIVER BX) Hx Diverticulitis: Yes Hx Gastroesophageal Reflux: Yes - GENITOURINARY/GYNECOLOGICAL Hx Genitourinary Disorders: Yes Hx Hematuria: Yes - PSYCHIATRIC Hx Substance Use: No - SURGICAL HISTORY Hx Surgeries: Yes (tubal) Hx Appendectomy: Yes Other/Comment: colon resection, liver bx, egd 06/04/17 attempted ercp , 06/10/[address] insertion of biliary stent dr vivek ricks, post [place] bleeding d&c, hysteroscopy, polypectomies dr gilbert 06/04/17. R chest port. PICC L arm - ANESTHESIA Hx Anesthesia: Yes Hx Anesthesia Reactions: No Hx Malignant Hyperthermia: No Meds Allergies/Adverse Reactions: Allergies Allergy/AdvReac Type Severity Reaction Status Date / Time No Known Allergies Allergy Verified 09/01/17 14:37 - Medications Medications: Current Medications Alprazolam (Xanax) 0.5 mg PO DAILY [facility] PRN Reason: Protocol Furosemide (Lasix) 40 mg PO DAILY [facility] Gentamicin Sulfate (Gentamicin) 2 mg IVPB Q48H [facility] PRN Reason: Protocol Glipizide (Glucotrol Xl) 10 mg PO DAILY [facility] Ceftriaxone Sodium (Rocephin 2 Gm Ivpb) 2 gm in 100 mls @ 100 mls/hr IVPB DAILY [facility] Insulin Human Regular (Humulin R Low) 0 units SC ACHS [facility] PRN Reason: Protocol Last Admin: 09/01/17 22:15 Dose: Not Given Lisinopril (Zestril) 10 mg PO DAILY [facility] Loratadine (Claritin) 10 mg PO DAILY [facility] Metoprolol Tartrate (Lopressor) 25 mg PO BRK [facility] Montelukast Sodium (Singulair) 10 mg PO DAILY [facility] Morphine Sulfate (Morphine Immediate Release Tab) 15 mg PO Q4H PRN PRN Reason: Pain, moderate (4-7) Last Admin: 09/01/17 21:08 Dose: 15 mg (Fentanyl [Subsys] 1 ([place])) 1 spray PO DAILY [facility] Ondansetron HCl (Zofran Inj) 4 mg IVP Q6H PRN PRN Reason: Nausea/Vomiting Last Admin: 09/01/17 21:10 Dose: 4 mg Pantoprazole Sodium (Protonix Ec Tab) 40 mg PO DAILY [facility] Pregabalin (Lyrica) 75 mg PO DAILY [facility] Physical Exam - Constitutional Appears: Non-toxic, No Acute Distress - Head Exam Head Exam: NORMAL INSPECTION - ENT Exam ENT Exam: Mucous Membranes Moist - Neck Exam Neck exam: Negative for: Lymphadenopathy, Meningismus - Respiratory Exam Respiratory Exam: Decreased Breath Sounds. absent: Rales Additional comments: right anterior chest wall port-a-cath in place, intact, non-tender, no surrounding erythema - Cardiovascular Exam Cardiovascular Exam: +S1, +S2 - GI/Abdominal Exam GI & Abdominal Exam: Soft. absent: Tenderness Results - Vital Signs Recent Vital Signs: Last Vital Signs Temp 97.8 F 09/01/17 20:08 Pulse 89 09/01/17 22:00 Resp 20 09/01/17 20:08 BP 160/76 H 09/01/17 20:08 Pulse Ox 98 09/01/17 17:25 - Labs Result Diagrams: 09/01/17 15:00 09/01/17 15:00 Assessment & Plan - Assessment and Plan (Free Text) Plan: Assessment Systemic Inflammatory Response Syndrome, R/O sepsis R/O C. diff. associated diarrhea history of Klebsiella bacteremia, R/O port infection DVT of the vein associated with mediport S/P mediport placement chronic renal failure pancreatic cancer HTN history of Hepatitis C history of TIA COPD Plan will change Rocephin to Merrem for now and give a dose of IV Vancomycin pending blood, urine cx, PCT, stool for C. diff.; will empirically start PO Vancomycin as well will continue Gentamicin antibiotic lock therapy for the port-a-cath will monitor clinically overall prognosis is poor
[2017-09-02] MEDS: Vancomycin 25 MG/ML PO SCH ×3 (13:13→22:27)
[2017-09-02] MEDS: HEPARIN CVC SCH (14:50)
[2017-09-02] MEDS: GENTAMICIN SULFATE CVC SCH (14:50)
[2017-09-02] MEDS: SODIUM CHLORIDE 0.9% CVC SCH (14:50)
--- NOTE | 2017-09-03 02:49 | PN ---
DATE: SUBJECTIVE: The patient is a 67-year-old female. The patient was seen and examined on the bedside and looking comfortable. No nausea, vomiting or diarrhea. No hematuria or hematochezia. No swelling of the legs. No chest pain or palpitations. No headache or dizziness. Still having pain. PHYSICAL EXAMINATION: VITAL SIGNS: Temperature 97.4, pulse 78, blood pressure 143/104, respiratory rate 20. HEENT: Head is normocephalic and atraumatic. Eyes; PERRLA. Extraocular muscles intact. Conjunctivae clear. Nose patent. Mucous membranes moist. NECK: Supple. No carotid bruits. No JVD or thyromegaly. CHEST: Bilaterally symmetrical. HEART: S1 and S2 positive. LUNGS: Clear to auscultation. ABDOMEN: Soft. Bowel sounds present. No organomegaly. EXTREMITIES: No edema. No cyanosis. NEUROLOGIC: The patient is awake and alert. Moving all 4 extremities. No focal deficits. MEDICATIONS: Fentanyl patch, Claritin, heparin, Glucotrol, insulin, Lasix, Lopressor, Lyrica, meropenem, Protonix, Singulair, vancomycin, Xanax, Zestril, and Zofran. LABORATORY DATA: White blood cells 13.1, hemoglobin 11.6, hematocrit 36.4 and platelets 264. Sodium 143, potassium 2.9, BUN 4, creatinine 0.6 and glucose 135. ASSESSMENT AND PLAN: Ms. Hortensia Love, a 67-year-old lady with multiple medical problems, history of pancreatic cancer with metastasis to the liver and lungs, hypertension, history of hepatitis C, transient ischemic attack, chronic obstructive pulmonary disease, has history of Klebsiella bacteremia, port infection could not be ruled out and she was placed on IV antibiotics together with antibiotics lock therapy. She was sent at this time for hypokalemia, lightheadedness, loose bowel movements for a few days now. She denies fever or chills. Patient has history anemia status post iron infusion. Hypokalemia replaced, hyperglycemia, systemic inflammatory response syndrome. Rule out Clostridium difficile toxin colitis associated with diarrhea, deep venous thrombosis of the vein associated with MediPort, status post MediPort placement, chronic renal failure. Dr. Berry changed Rocephin to meropenem for now and given a dose of vancomycin pending blood and urine cultures. Check stools for C. difficile toxin colitis. We will empirically start p.o. vancomycin as well we will continue gentamicin antibiotic lock therapy for the Port-A-Cath. We will monitor clinically. Overall prognosis is poor. Discussion with Dr. Berry. Gastrointestinal and deep venous thrombosis prophylaxis. Repeat labs. We will follow up. Georgina Ferrara MD
--- NOTE | 2017-09-03 04:28 | CON ---
DATE: 09/02/2017 REFERRING PHYSICIAN: Dr. Ferrara. REASON FOR CONSULTATION: Chronic obstructive lung disease, may have sleep apnea syndrome, metastatic stable adenocarcinoma. HISTORY OF PRESENT ILLNESS: This is a 67 years old female, well known to me from previous admission, known adenocarcinoma with metastatic disease to lungs and the liver. Comes in with abdominal pain, nausea, vomiting, found to be hypokalemic, was admitted, receiving pain management. She did receive 1 or 2 doses of chemo since the diagnosis is made for a couple of weeks now. Nor very compliant with following with the Oncology. Presently, sitting up in a bed with nausea, vomiting and abdominal pain. Received Zofran. PAST MEDICAL HISTORY: As per history of present illness. FAMILY HISTORY: No significant cardiopulmonary disease is reported. ALLERGIES: NONE KNOWN. SOCIAL HISTORY: Has a past medical history of ethanol abuse and heavy smoking. MEDICATIONS: She is on fentanyl spray daily, Claritin 10 mg daily, glipizide 10 mg daily, insulin coverage, Lasix 40 mg daily, metoprolol tartrate 25 mg daily, Lovenox 40 mg subcu daily, Lyrica 75 mg daily, meropenem 1 g q. 8 hours, Protonix 40 mg daily, Singulair 10 mg daily, vancomycin 125 mg q.i.d., Xanax 0.5 mg daily, Zestril 10 mg daily, Zofran p.r.n. basis. REVIEW OF SYSTEMS: No headache. No rhinitis nor cough, nausea, vomiting, abdominal pain. No dysuria. No leg pain. No leg swelling. PHYSICAL EXAMINATION GENERAL: Sitting on side of the bed with mild distress secondary to nausea and abdominal pain. VITAL SIGNS: Temp is 98, heart rate is 77, respiratory rate is 20, blood pressure 143/104, pulse ox 96% on room air. HEENT: Moist mucous membrane. Crowded airway. NECK: Supple. No JVD. LUNGS: Have a fair airflow with rhonchi. HEART: S1 and S2. ABDOMEN: Positive bowel sounds. Has epigastric tenderness. EXTREMITIES: There is no edema. NEUROLOGICAL: Awake, alert. Follows simple command. LABORATORY DATA: Shows hemoglobin 11.6, hematocrit 36.4, WBC 13.1, platelet is 264. INR 1.18, PTT is 58. VBG showed pH 7.44, pCO2 of 48, O2 of 55 that is on room air. Sodium 143, potassium 2.9, chloride 101, bicarbonate 32, BUN 4, creatinine 0.6, glucose 135, calcium 9.4, AST 28, ALT 22, alkaline phosphatase is 125, troponin less than 0.01, total protein 7.8, albumin 3.7, globulin 4.1, amylase 126, lipase 734, procalcitonin less than 0.05. Microbiology: Blood culture has gram-positive cocci. Chest x-ray shows slightly decreased size of pulmonary nodule. IMPRESSION AND PLAN: Metastatic adenocarcinoma involving the head of the pancreas, liver, lungs, also involving the ductal system requiring stent in the past; chronic obstructive lung disease; obstructive sleep apnea syndrome; pancreatitis; reactive nausea and vomiting; has a bacteremia, on vancomycin and meropenem. I spoke to nursing staff. Reglan 10 mg IV one dose given. We will place Reglan 10 mg q. 6 hours p.r.n. for vomiting. Continue Zofran p.r.n. On proton inhibitor. Add simethicone q.i.d. Pain management. Gastric prophylaxis. Deep venous thrombosis prophylaxis. We will get GI and Oncology involved. We will follow with you. Linnea Stephen MD
[2017-09-03] MEDS: Meropenem 1g/NS 100mL IVPB 1 GM/100 ML PIGGYBACK IVPB SCH ×2 (06:23→22:43)
[2017-09-03 06:52] LABS: HEMATOCRIT 35.5 % (36.0-48.0); MEAN CELL VOLUME 88.3 fl (80.0-105.0); MEAN CORPUSCULAR HEMOGLOBIN 27.9 pg (25.0-35.0); MEAN CORPUSCULAR HGB CONC 31.5 g/dl (31.0-37.0); MEAN PLATELET VOLUME 8.4 fl (7.0-11.0); RED CELL DISTRIBUTION WIDTH 16.2 % (11.5-14.5); WHITE BLOOD COUNT 13.2 10^3/ul (4.5-11.0)
[2017-09-03] MEDS ORDERED: Vancomycin 2 GM in Sodium Chloride 0.9% 500 ML IVPB ONE (06:53)
[2017-09-03 07:14] LABS: IRON 26 ug/dL (45-180)
[2017-09-03 07:17] LABS: ALB/GLOB RATIO 0.9 (1.1-1.8); ALKALINE PHOSPHATASE 96 U/L (38-126); ALT/SGPT 25 U/L (7-56); AMYLASE 119 U/L (35-125); AST/SGOT 31 U/L (14-36); BILIRUBIN,TOTAL 0.6 mg/dL (0.2-1.3); BLOOD UREA NITROGEN 5 mg/dL (7-21); CARBON DIOXIDE 32 mmol/L (21-33); CHLORIDE 102 mmol/L (95-110); CHOLESTEROL 153 mg/dL (130-200); GFR AFRICAN-AMERICAN > 60; GLUCOSE,RANDOM 101 mg/dL (70-110); LIPASE 436 U/L (23-300); POTASSIUM 3.6 mmol/L (3.6-5.0); SODIUM 140 mmol/L (132-148); TOTAL PROTEIN 7.1 g/dL (5.8-8.3)
[2017-09-03] MEDS: Morphine 15 mg Immediate Release Tab PO PRN ×3 (08:23→22:45)
[2017-09-03] MEDS: Insulin Reg-LOW-Coverage SC SCH ×4 (08:25→21:53)
[2017-09-03] MEDS: Pantoprazole 40 mg EC Tab PO SCH (10:14)
[2017-09-03] MEDS: GlipiZIDE 10 mg SR Tab PO SCH (10:17)
[2017-09-03] MEDS: Enoxaparin 40 mg Syringe SC SCH (10:25)
[2017-09-03] MEDS: Vancomycin 25 MG/ML PO SCH ×4 (10:26→22:44)
[2017-09-03] MEDS: FENTANYL PO SCH (10:37)
--- NOTE | 2017-09-03 11:51 | CP.PCM.PN ---
Subjective - Date & Time of Evaluation Date of Evaluation: 09/03/17 Time of Evaluation: 09:35 - Subjective Subjective: Still having nausea and occasional lightheadedness, no fevers overnight. No diarrhea. Objective - Vital Signs/Intake and Output Vital Signs (last 24 hours): Temp Pulse Resp BP Pulse Ox 98.6 F 90 20 154/96 H 96 09/03/17 00:01 09/03/17 02:00 09/03/17 00:01 09/03/17 00:01 09/02/17 06:00 Intake and Output: 09/02/17 09/03/17 18:59 06:59 Intake Total 120 Output Total 0 Balance 120 - Medications Medications: Current Medications Alprazolam (Xanax) 0.5 mg PO DAILY [facility] PRN Reason: Protocol Last Admin: 09/02/17 09:24 Dose: 0.5 mg Enoxaparin Sodium (Lovenox) 40 mg SC DAILY [facility] PRN Reason: Protocol Furosemide (Lasix) 40 mg PO DAILY [facility] Last Admin: 09/02/17 09:24 Dose: 40 mg Glipizide (Glucotrol Xl) 10 mg PO DAILY [facility] Last Admin: 09/02/17 09:29 Dose: 10 mg Meropenem 1g/NS 100mL IVPB (Meropenem 1g/Ns 100ml Ivpb) 1 gm in 100 mls @ 100 mls/hr IVPB Q8 [facility] PRN Reason: Protocol Stop: 09/08/17 23:31 Last Admin: 09/03/17 06:23 Dose: 100 mls/hr Gentamicin Sulfate 2 mg/Heparin Sodium (Porcine) 5,000 units/ Sodium Chloride 2 mls @ 2 mls/min CVC Q48H [facility] Stop: 09/16/17 10:31 Last Admin: 09/02/17 14:50 Dose: 2 mls/min Vancomycin HCl 2 gm/ Sodium (Chloride) 500 mls @ 170 mls/hr IVPB ONCE ONE PRN Reason: Protocol Stop: 09/03/17 09:49 Insulin Human Regular (Humulin R Low) 0 units SC ACHS [facility] PRN Reason: Protocol Last Admin: 09/02/17 22:30 Dose: Not Given Lisinopril (Zestril) 10 mg PO DAILY [facility] Last Admin: 09/02/17 09:28 Dose: 10 mg Loratadine (Claritin) 10 mg PO DAILY [facility] Last Admin: 09/02/17 09:28 Dose: 10 mg Metoclopramide HCl (Reglan) 10 mg IVP ACHS PRN PRN Reason: Nausea/Vomiting Metoprolol Tartrate (Lopressor) 25 mg PO BRK [facility] Last Admin: 09/02/17 09:29 Dose: 25 mg Montelukast Sodium (Singulair) 10 mg PO DAILY [facility] Last Admin: 09/02/17 09:28 Dose: 10 mg Morphine Sulfate (Morphine Immediate Release Tab) 15 mg PO Q4H PRN PRN Reason: Pain, moderate (4-7) Last Admin: 09/02/17 20:02 Dose: 15 mg (Fentanyl [Subsys] 1 ([place])) 1 spray PO DAILY [facility] Last Admin: 09/02/17 09:30 Dose: Not Given Ondansetron HCl (Zofran Inj) 4 mg IVP Q6H PRN PRN Reason: Nausea/Vomiting Last Admin: 09/02/17 12:04 Dose: 4 mg Pantoprazole Sodium (Protonix Ec Tab) 40 mg PO DAILY [facility] Last Admin: 09/02/17 09:24 Dose: 40 mg Pregabalin (Lyrica) 75 mg PO DAILY [facility] Last Admin: 09/02/17 09:29 Dose: 75 mg Vancomycin HCl (Vancocin 25 Mg/Ml (Oral Use)) 125 mg PO QID [facility] PRN Reason: Protocol Last Admin: 09/02/17 22:27 Dose: 125 mg - Labs Labs: PT 12.9 SECONDS (9.4-12.5) H 09/01/17 16:00 INR 1.18 (0.93-1.08) H 09/01/17 16:00 APTT 58.3 Seconds (25.1-36.5) H 09/01/17 16:00 - Constitutional Appears: Chronically Ill - Head Exam Head Exam: NORMAL INSPECTION - ENT Exam ENT Exam: Mucous Membranes Moist - Neck Exam Neck Exam: absent: Lymphadenopathy, Meningismus - Respiratory Exam Respiratory Exam: Decreased Breath Sounds Additional comments: right anterior chest wall port-a-cath in place - Cardiovascular Exam Cardiovascular Exam: +S1, +S2 - GI/Abdominal Exam GI & Abdominal Exam: Soft. absent: Tenderness - Extremities Exam Additional comments: left arm PICC line in place - not flushing and no blood draw back Assessment and Plan - Assessment and Plan (Free Text) Plan: Assessment sepsis due to gram positive cocci bacteremia, R/O PICC line infection R/O C. diff. associated diarrhea history of Klebsiella bacteremia, R/O port infection DVT of the vein associated with mediport S/P mediport placement chronic renal failure pancreatic cancer HTN history of Hepatitis C history of TIA COPD Plan will change Merrem back to Rocephin (to complete the therapy for the Klebsiella bacteremia, day 34 of 42 days since the port had thrombus in the right internal jugular vein from 08/01/2017 which may have been associated with the port; also continue the Gentamicin lock therapy) - would recommend removal of port since there was DVT follow up identification and sensitivities of the gram positive cocci in the blood - will repeat blood cx today; recommend removal of the PICC line follow up stool for C. diff., continue PO Vancomycin (day 2) will continue to monitor clinically overall prognosis is poor
[2017-09-03 13:13] LABS: FOLATE 8.1 ng/mL
--- NOTE | 2017-09-03 17:23 | US ---
HISTORY: Arm pain and swelling. Evaluate for deep venous thrombosis. PICC line PHYSICIAN(S): Loi Zamudio MD. FINDINGS: There is localized catheter- associated thrombus in the left brachial vein related to the PICC line. The left subclavian and axillary veins are patent and normal. The left internal jugular vein is patent and normal. There is no sonographic evidence of deep venous thrombosis in the visualized segments of the right upper extremity. IMPRESSION: 1. Isolated catheter in the left brachial vein related to the patient's PICC line. Options include removing the PICC line or anticoagulation and a repeat venous ultrasound in 5-7 days
[2017-09-03] MEDS ORDERED: Vancomycin 1gm in NS 250ml 1 GM/250 ML BAG IVPB SCH (19:00)
--- NOTE | 2017-09-03 20:08 | PN ---
PULMONARY PROGRESS NOTE DATE: 09/03/2017 REFERRING PHYSICIAN: Georgina Ferrara MD SUBJECTIVE: She is lying in the bed at 45 degree. Night was unremarkable. Feels a little better. Today, decreased abdominal pain. No shortness of breath. No chest pain. No leg pain or leg swelling. PHYSICAL EXAMINATION GENERAL: In no acute distress. VITAL SIGNS: Temp is 98, heart rate is 73, respiratory rate is 20, blood pressure 133/66 and pulse oximetry 94% on nasal cannula. HEENT: Moist mucous membrane. Crowded airway. Mallampati score is IV. NECK: Supple. No JVD. LUNGS: Fair airflow with few rhonchi. HEART: S1 and S2. ABDOMEN: Soft and has mild tenderness on epigastric area. EXTREMITIES: There is no edema. NEUROLOGIC: Awake and alert. Follow simple commands. MEDICATIONS: She is on fentanyl spray daily basis, Claritin 10 mg daily, glipizide 10 mg daily, insulin coverage, Lasix at 40 mg daily, metoprolol tartrate 25 mg daily, Lovenox 40 mg daily, meropenem 1 g IV q. 8 hours, morphine 50 mg q. 4 hours p.r.n., Protonix 40 mg daily, Reglan 10 mg a.c. and at bedtime p.r.n., Singulair 10 mg daily, vancomycin 125 mg p.o. q.i.d., also vancomycin 1 g IV q. 12 hours, Xanax 0.5 mg daily, Zestril 10 mg daily and Zofran p.r.n. basis. LABORATORY DATA: Shows hemoglobin 11.2, hematocrit 35.5, WBC 13.2 and platelet count is 238. Sodium 140, potassium 3.6, chloride 102, bicarbonate 32, BUN 5, creatinine 0.6, glucose 169 and calcium 9.0. Iron is 26. AST 31, ALT 25, alk phos is 96, albumin is 3.4, amylase is 119, lipase is 436, B12 652 and folate 8.1. TSH 3.1. Microbiology; blood culture gram-positive cocci. IMPRESSION AND PLAN: Bacteremia, history of deep venous thrombosis, has a Port-A catheter, metastatic adenocarcinoma involving the pancreatic duct, liver and lungs, chronic obstructive lung disease, history of percutaneous stent placement in the ducts, pancreatitis. Pulmonary point of view doing okay. Continue bronchodilator. Sleep apnea precautions. Continue antibiotics. Gastric prophylaxis. Deep venous thrombosis prophylaxis. Pain management. Overall poor prognosis. Gastroenterology and Oncology followup for venous Doppler today. Thank you and we will follow with you. Linnea Stephen MD
--- NOTE | 2017-09-03 20:45 | CP.PCM.PN ---
Subjective - Date & Time of Evaluation Date of Evaluation: 09/03/17 Time of Evaluation: 20:41 - Subjective Subjective: S: Nurse calls me to remove a PICC line and insert a heparin lock. Patient has no complaints now. Pertinent medical record was reviewed. Has been on Lovenox. O: Last Vital Signs 3 Temp 98.6 F 09/03/17 17:48 Pulse 79 09/03/17 18:00 Resp 20 09/03/17 17:48 BP 142/93 H 09/03/17 17:48 Pulse Ox 94 L 09/03/17 06:00 Awake, alert, not in distress. LUNGS: Normal breathing patter. A: Poor venous access. Encounter for insertion of intravenous line. Encountrer for removal of PICC line. P: A PICC line was removed from left arm. Manual pressure was applied for 15 minutes. # 24 angiocath was inserted in right distal volar forearm. Objective - Vital Signs/Intake and Output Vital Signs (last 24 hours): Temp Pulse Resp BP Pulse Ox 98.6 F 79 20 142/93 H 94 L 09/03/17 17:48 09/03/17 18:00 09/03/17 17:48 09/03/17 17:48 09/03/17 06:00 Intake and Output: 09/03/17 09/04/17 18:59 06:59 Intake Total 780 Output Total 4 Balance 776 - Medications Medications: Current Medications Alprazolam (Xanax) 0.5 mg PO DAILY [facility] PRN Reason: Protocol Last Admin: 09/03/17 10:17 Dose: 0.5 mg Enoxaparin Sodium (Lovenox) 40 mg SC DAILY [facility] PRN Reason: Protocol Last Admin: 09/03/17 10:25 Dose: 40 mg Furosemide (Lasix) 40 mg PO DAILY [facility] Last Admin: 09/03/17 10:24 Dose: 40 mg Glipizide (Glucotrol Xl) 10 mg PO DAILY [facility] Last Admin: 09/03/17 10:17 Dose: 10 mg Meropenem 1g/NS 100mL IVPB (Meropenem 1g/Ns 100ml Ivpb) 1 gm in 100 mls @ 100 mls/hr IVPB Q8 [facility] PRN Reason: Protocol Stop: 09/08/17 23:31 Last Admin: 09/03/17 06:23 Dose: 100 mls/hr Gentamicin Sulfate 2 mg/Heparin Sodium (Porcine) 5,000 units/ Sodium Chloride 2 mls @ 2 mls/min CVC Q48H [facility] Stop: 09/16/17 10:31 Last Admin: 09/02/17 14:50 Dose: 2 mls/min Vancomycin HCl (Vancomycin 1gm) 1 gm in 250 mls @ 167 mls/hr IVPB Q12H [facility] PRN Reason: Protocol Insulin Human Regular (Humulin R Low) 0 units SC ACHS [facility] PRN Reason: Protocol Last Admin: 09/03/17 17:38 Dose: 1 units Lisinopril (Zestril) 10 mg PO DAILY [facility] Last Admin: 09/03/17 10:24 Dose: 10 mg Loratadine (Claritin) 10 mg PO DAILY [facility] Last Admin: 09/03/17 10:15 Dose: 10 mg Metoclopramide HCl (Reglan) 10 mg IVP ACHS PRN PRN Reason: Nausea/Vomiting Metoprolol Tartrate (Lopressor) 25 mg PO BRK [facility] Last Admin: 09/03/17 08:22 Dose: 25 mg Montelukast Sodium (Singulair) 10 mg PO DAILY [facility] Last Admin: 09/03/17 10:18 Dose: 10 mg Morphine Sulfate (Morphine Immediate Release Tab) 15 mg PO Q4H PRN PRN Reason: Pain, moderate (4-7) Last Admin: 09/03/17 17:49 Dose: 15 mg (Fentanyl [Subsys] 1 ([place])) 1 spray PO DAILY [facility] Last Admin: 09/03/17 10:37 Dose: Not Given Ondansetron HCl (Zofran Inj) 4 mg IVP Q6H PRN PRN Reason: Nausea/Vomiting Last Admin: 09/03/17 17:50 Dose: 4 mg Pantoprazole Sodium (Protonix Ec Tab) 40 mg PO DAILY [facility] Last Admin: 09/03/17 10:14 Dose: 40 mg Pregabalin (Lyrica) 75 mg PO DAILY [facility] Last Admin: 09/03/17 10:17 Dose: 75 mg Vancomycin HCl (Vancocin 25 Mg/Ml (Oral Use)) 125 mg PO QID [facility] PRN Reason: Protocol Last Admin: 09/03/17 19:26 Dose: 125 mg - Labs Labs: 09/03/17 06:30 09/03/17 06:30 PT 12.9 SECONDS (9.4-12.5) H 09/01/17 16:00 INR 1.18 (0.93-1.08) H 09/01/17 16:00 APTT 58.3 Seconds (25.1-36.5) H 09/01/17 16:00
--- NOTE | 2017-09-03 21:30 | PN ---
DATE: SUBJECTIVE: The patient is a 67-year-old female. The patient was seen and examined on the bedside, looking comfortable. No nausea, vomiting, or diarrhea. Still complaining of abdominal pain. Night was unremarkable. No fever and no chills. No chest pain. No swelling of the legs. PHYSICAL EXAMINATION: VITAL SIGNS: Temperature 98, heart rate 76, respiratory rate 20, blood pressure 133/63 and pulse oximetry 94%. HEENT: Head is normocephalic and atraumatic. Eyes, PERRLA. Extraocular muscles are intact. Conjunctivae are clear. Nose is patent. Mucous membranes moist. NECK: Supple. No carotid bruits, JVD or thyromegaly. CHEST: Bilaterally symmetrical. HEART: S1 and S2 positive. LUNGS: Fair airflow with few rhonchi. ABDOMEN: Soft, has mild tenderness on the epigastric area. EXTREMITIES: No edema. No cyanosis. NEUROLOGICAL: The patient is awake and alert. Follows simple commands. MEDICATIONS: Fentanyl patch, Claritin, insulin, metoprolol, Lovenox, meropenem, morphine, Protonix, Reglan,heparin, Singulair, vancomycin, Xanax, Zestril, and Zofran. LABORATORY DATA: Hemoglobin 11.2, hematocrit 35.5, white blood cells 13.2, and , platelets 238. Sodium 140, potassium 3.6, BUN 5, creatinine 0.6, and glucose 169. AST 31 and ALT 25. TSH 3.1. ASSESSMENT AND PLAN: Ms. 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 We will continue bronchodilators, sleep apnea precautions, gastric prophylaxis,and pain management. GI and Oncology are on the case. The patient went for ultrasound according to Dr. Loi Zamudio. The patient has isolated catheter in the left brachial vein related to the patient's PICC line. Options include removing the PICC line or anticoagulation and repeat venous ultrasound in 5 to [address] Loi Zamudio's input. Dr. Kristi Mercado is ID on the case. The patient has sepsis due to gram-positive cocci bacteremia. Rule out PICC line infection. Rule of C. difficile colitis associated with bacteremia. History of transient ischemic attack, chronic renal failure, getting better. ID changed meropenem back to Rocephin due to complete the therapy of left-sided bacteremia day #34 of the 42 days since the port had thrombus in the right internal jugular vein from 08/01/2017, which may been have associated with the port. Also continue gentamicin lock therapy. We will recommend removal of port since there was DVT. Follow up identification and sensitivity of the gram-positive cocci in blood. Repeat blood culture today. Recommend removal of the PICC line by ID. GI and DVT prophylaxis. Overall prognosis is poor. We will follow. Georgina Ferrara MD
[2017-09-04] MEDS: Morphine 15 mg Immediate Release Tab PO PRN ×3 (03:05→23:05)
[2017-09-04] MEDS: Meropenem 1g/NS 100mL IVPB 1 GM/100 ML PIGGYBACK IVPB SCH ×3 (06:41→22:56)
[2017-09-04] MEDS ORDERED: HEPARIN CVC SCH (08:15)
[2017-09-04] MEDS ORDERED: GENTAMICIN SULFATE CVC SCH (08:15)
[2017-09-04] MEDS ORDERED: SODIUM CHLORIDE 0.9% CVC SCH (08:15)
[2017-09-04] MEDS: Insulin Reg-LOW-Coverage SC SCH ×4 (08:53→22:54)
[2017-09-04] MEDS: Vancomycin 1gm in NS 250ml 1 GM/250 ML BAG IVPB SCH ×2 (09:08→20:58)
[2017-09-04] MEDS: GlipiZIDE 10 mg SR Tab PO SCH (09:10)
[2017-09-04] MEDS: Vancomycin 25 MG/ML PO SCH ×4 (09:11→23:04)
[2017-09-04] MEDS: Enoxaparin 40 mg Syringe SC SCH (09:11)
[2017-09-04] MEDS: Pantoprazole 40 mg EC Tab PO SCH (09:11)
[2017-09-04] MEDS: FENTANYL PO SCH (09:15)
[2017-09-04] MEDS: HEPARIN CVC SCH ×2 (11:03→11:21)
[2017-09-04] MEDS: GENTAMICIN SULFATE CVC SCH ×2 (11:03→11:21)
[2017-09-04] MEDS: SODIUM CHLORIDE 0.9% CVC SCH ×2 (11:03→11:21)
--- NOTE | 2017-09-04 21:55 | PN ---
DATE: SUBJECTIVE: The patient is a 67-year-old female. The patient seen and examined at the bedside. Last night, she has good sleep. Diarrhea is better. No nausea or vomiting. No chest pain and no palpitations. No headaches or dizziness. No swelling of the legs. No fevers and no chills. PHYSICAL EXAMINATION: VITAL SIGNS: Temperature 98.6, pulse 108, blood pressure 115/90 and respiratory rate 20. HEENT: Head; normocephalic and atraumatic. Eyes: PERRLA. Extraocular muscles are intact. Conjunctivae clear. Nose patent. Mucous membrane moist. NECK: Supple. No carotid bruit, JVD or thyromegaly. CHEST: Bilaterally symmetrical. HEART: S1 and S2 positive. LUNGS: Clear to auscultation. ABDOMEN: Soft. Bowel sounds are present. No organomegaly. EXTREMITIES: No edema. No cyanosis. NEUROLOGIC: The patient is awake and alert. Moving all 4 extremities. No focal deficit. MEDICATIONS: Fentanyl spray, Claritin, gentamicin, glipizide, insulin, Lasix, Lopressor, Lovenox, Lyrica, meropenem, morphine sulfate, Protonix, Reglan, Singulair, vancomycin, Xanax, Zestril, and Zofran. LABORATORY DATA: White blood cells 13.2, hemoglobin 11.2, hematocrit 35.5 and platelets 238. Glucose 148, 94, 85, 48, 137, 159. ASSESSMENT AND PLAN: Ms. Ivan Bazan is a 67-year-old female with multiple medical problems, came with bacteremia, history of deep venous thrombosis, has [id number], metastatic adenocarcinoma involving the pancreatic duct, lungs and liver; chronic obstructive lung disease, history of percutaneous stent placement in the duct system and pancreatitis, history of hepatitis C positive, obstructive sleep apnea syndrome. Continue antibiotics, gastric prophylaxis and deep venous thrombosis prophylaxis. Overall prognosis is poor. Oncology, Gastroenterology, Pulmonary, and Infectious Disease is on the case. The patient was seen by Dr. Latoya Lindo, for the removal of peripherally inserted central catheter line and insert the heparin lock. The patient is getting Lovenox for thrombosis, getting IV antibiotics. Repeat labs. We will followup. Out of bed physical therapy. Georgina Ferrara MD [facility] # [id number]
--- NOTE | 2017-09-04 22:13 | PN ---
DATE: 09/04/2017 SUBJECTIVE: The patient is seen early this morning. She states she is doing much better. She has no chest pain, shortness of breath. She is tolerating the antibiotics well. PHYSICAL EXAMINATION: VITAL SIGNS: Temperature 98, blood pressure is 150/90, respiratory rate of 20 and heart rate of 108. HEENT: Examination is unremarkable. NECK: Supple. LUNGS: Decreased breath sounds. HEART: Normal S1, S2. ABDOMEN: Examination is soft, nontender. No rebound or guarding. LABORATORY EXAMINATION: Reveals a white count of 13,100, hemoglobin of 11 and platelets of 264. Coagulation is noted. Chemistries revealed the patient to have a BUN of 5, creatinine of 0.6, lipase is 436. Procalcitonin less than 0.05. Urinalysis is noted. Microbiology reveals blood cultures are positive, one identification is unclear, second is gram-positive cocci in chains, these are 2 organisms in the same bottle and the second bottle of blood cultures are coag-negative staph. Review of orders reveals the patient to be on meropenem and vancomycin intermittently and gentamicin antibiotic lock q. 48 hours. The orders revealed the meropenem to be active. ASSESSMENT AND PLAN: This is a 67-year-old female, seen earlier this morning in 263, bed 2 with sepsis, gram-positive cocci bacteremia, PICC line, possible Port-A-Cath. The patient had a history of Klebsiella bacteremia associated with a MediPort, status post MediPort replacement with chronic renal failure, pancreatic cancer, hepatitis C, transient ischemic attack, hypertension, chronic obstructive pulmonary disease. Currently is being treated for ceftriaxone day #35 of 42 days Klebsiella bacteremia with thrombus in the right internal jugular vein in 07/2017. The patient is also on gentamicin lock therapy, would recommend removal of the port. We will check identification and sensitivity of the gram-positive cocci. Review of orders reveals the meropenem to be active, vancomycin IV is active, and p.o. vancomycin is also active. We will follow closely with you. Luc Lynn MD
--- NOTE | 2017-09-05 00:02 | PN ---
PULMONARY PROGRESS NOTE DATE: 09/04/2017 REFERRING PHYSICIAN: Georgina Ferrara MD SUBJECTIVE: She is sitting in side of the bed. Night was unremarkable. Has upper extremity ultrasound showing DVT. Has abdominal pain. Also has nausea. Using Reglan and Zofran p.r.n. No chest pain. No leg pain or leg swelling. OBJECTIVE: GENERAL: In no acute distress. VITAL SIGNS: Temperature is 98, heart rate is 78, respiratory rate is 20, blood pressure 158/90, pulse ox 95% on room air. HEENT: Moist mucous membranes. No oral thrush noted. NECK: Supple. No JVD. LUNGS: Has fair airflow with few rhonchi. HEART: S1 and S2. ABDOMEN: Positive bowel sounds. Has epigastric tenderness. EXTREMITIES: There is no edema. NEUROLOGIC: Awake, alert and follow simple commands. MEDICATIONS: She is on fentanyl spray p.r.n. basis, also Claritin 10 mg daily, glipizide 10 mg daily, insulin coverage, Lasix 40 mg daily, metoprolol tartrate 25 mg daily, Lovenox 40 mg subcu daily, Lyrica 75 mg daily, meropenem 1 g IV q. 8 hours, Protonix 40 mg daily, Reglan 10 mg a.c. and at bedtime p.r.n., Singulair 10 mg daily, vancomycin 125 mg p.o. q.i.d., Xanax 0.5 mg daily, Zestril 10 mg daily and Zofran p.r.n. basis. LABORATORY DATA: Shows hemoglobin 11.2, hematocrit 35.5, WBC 13.2 and platelet count is 238. Blood sugar is 148. Blood culture has coag negative Staph in one culture and the second culture coag positive, staphylococcus species. Has Doppler done which shows, there is a localized catheter associated thrombus in the left brachial vein related to the PICC line. The left subclavian axillary veins are patent and normal, but in the right upper extremity has no DVT. IMPRESSION AND PLAN: Bacteremia, deep venous thrombosis, which is catheter related, metastatic adenocarcinoma involving the pancreas, liver and lungs; pancreatitis; history of percutaneous stent placement to the pancreatic ducts. Pulmonary point of view doing okay. Continue antibiotics as per Infectious Disease. Cannot tolerate anticoagulation. Had gastrointestinal bleed, so catheter will be removed. Continue gastric prophylaxis. Pain management. Outpatient Oncology follow up. May need to get echocardiogram, which shows there is no endocarditis. Thank you and we will follow with you. Linnea Stephen MD
[2017-09-05] MEDS: Meropenem 1g/NS 100mL IVPB 1 GM/100 ML PIGGYBACK IVPB SCH ×4 (06:49→22:27)
[2017-09-05] MEDS: Morphine 15 mg Immediate Release Tab PO PRN ×2 (07:52→14:26)
[2017-09-05] MEDS: Insulin Reg-LOW-Coverage SC SCH ×3 (09:05→21:43)
[2017-09-05] MEDS: Vancomycin 1gm in NS 250ml 1 GM/250 ML BAG IVPB SCH ×2 (09:16→21:27)
[2017-09-05] MEDS: Vancomycin 25 MG/ML PO SCH ×3 (09:16→21:39)
[2017-09-05] MEDS: Pantoprazole 40 mg EC Tab PO SCH (09:17)
[2017-09-05] MEDS: GlipiZIDE 10 mg SR Tab PO SCH (09:18)
[2017-09-05] MEDS: Enoxaparin 40 mg Syringe SC SCH (09:23)
[2017-09-05] MEDS: FENTANYL PO SCH (09:34)
--- NOTE | 2017-09-05 14:15 | PN ---
DATE: 09/05/2017 PULMONARY PROGRESS NOTE REFERRING PHYSICIAN: Dr. Ferrara. SUBJECTIVE: She is lying in the bed. Sleepy arousable. Night was unremarkable. Tolerate her breakfast now. No cough. No sputum production. Still a bit of abdominal pain. No leg pain or leg swelling. Left upper extremity PICC line been removed. OBJECTIVE: GENERAL: In no acute distress. VITAL SIGNS: Temperature is 99, heart rate is 98, respiratory rate is 20, blood pressure 170/93, pulse ox 95% on room air. HEENT: Moist mucous membranes. Crowded airway. NECK: Supple. No JVD. LUNGS: Has fair airflow with few rhonchi. HEART: S1 and S2. ABDOMEN: Soft, nontender. Has epigastric pain. EXTREMITIES: No edema. NEUROLOGIC: Awake, alert and follow simple commands. MEDICATIONS: She is on fentanyl spray p.r.n. basis, Claritin 10 mg daily, glipizide 10 mg daily, insulin coverage, Lasix 40 mg daily, metoprolol tartrate 25 mg daily, Lovenox 40 mg subcutaneous daily, Lyrica 75 mg daily, meropenem 1 g IV q.8 hours, morphine immediate release 50 mg q. 4 hours p.r.n., Protonix 40 mg daily, Reglan 10 mg IV a.c. and at bedtime p.r.n., Singulair 10 mg daily, vancomycin 125 mg q.i.d., vancomycin 1 g IV q.12 hours, Xanax 0.5 mg daily, Zestril 10 mg daily and Zofran p.r.n. basis. LABORATORY DATA: Shows blood sugar this morning is 98. IMPRESSION AND PLAN: Bacteremia, deep venous thrombosis, peripherally inserted central catheter removed, metastatic adenocarcinoma involving the pancreas, pancreatic duct, liver and lungs, reactive nausea and vomiting. Continue antibiotics, bronchodilator, keep 45 degree, pain management, gastric prophylaxis, deep venous thrombosis prophylaxis. Could not tolerate anticoagulation. Had a gastrointestinal bleed. Oncology and Gastroenterology followup. Overall poor prognosis. Thank you and we will follow with you. Linnea Stehpen MD
--- NOTE | 2017-09-05 18:06 | PN ---
DATE: 09/05/2017 SUBJECTIVE: The patient is in bed, in no acute distress, nontoxic. PHYSICAL EXAMINATION: VITAL SIGNS: Temperature is 98, blood pressure is 150/90, respiratory rate of 18. HEENT: Unremarkable. NECK: Supple. LUNGS: Have decreased breath sounds. HEART: Normal S1, S2. ABDOMEN: Soft. LABORATORY EXAMINATION: Reveals WBC count of 13,200, hemoglobin of 11. Chemistries reveals the patient has a BUN of 5, creatinine of 0.6. Microbiology: Reveals the blood cultures are Enterococcus faecium and a coag-negative staph. Enterococcus faecium is resistant to ampicillin and sensitive to vancomycin and coag-negative staph is noted. Urine cultures reported to be negative. Review of orders reveals the patient to be on vancomycin and cefepime. ASSESSMENT AND PLAN: This is a 67-year-old female, who was seen earlier today with sepsis, gram-positive cocci, Enterococcus faecium and coag-negative staph, did have a PICC line in, has Port-A-Cath, history of Klebsiella bacteremia and with a status post MediPort replacement, chronic renal failure, pancreatic cancer, hepatitis C, transient ischemic attack, hypertension and the patient was treated with ceftriaxone for the Klebsiella bacteremia and a thrombus in the right internal jugular vein in 07/2017, placed in gentamicin lock therapy. We will continue the present course. We are awaiting for repeat blood culture results to document negative blood cultures. We will follow with you. Luc Lynn MD
[2017-09-06] MEDS: Meropenem 1g/NS 100mL IVPB 1 GM/100 ML PIGGYBACK IVPB SCH ×3 (05:28→23:26)
[2017-09-06] MEDS: Morphine 15 mg Immediate Release Tab PO PRN ×3 (08:27→21:43)
[2017-09-06] MEDS: Vancomycin 1gm in NS 250ml 1 GM/250 ML BAG IVPB SCH ×2 (08:28→21:41)
[2017-09-06] MEDS: Insulin Reg-LOW-Coverage SC SCH ×4 (08:35→22:57)
[2017-09-06] MEDS: GlipiZIDE 10 mg SR Tab PO SCH (10:23)
[2017-09-06] MEDS: Enoxaparin 40 mg Syringe SC SCH (10:23)
[2017-09-06] MEDS: FENTANYL PO SCH (10:23)
[2017-09-06] MEDS: Pantoprazole 40 mg EC Tab PO SCH (10:25)
[2017-09-06] MEDS: Vancomycin 25 MG/ML PO SCH ×4 (10:25→23:29)
--- NOTE | 2017-09-06 12:16 | CP.PCM.PN ---
Subjective - Date & Time of Evaluation Date of Evaluation: 09/06/17 Time of Evaluation: 10:20 - Subjective Subjective: No nausea, no diarrhea. Right chest wall port is not flushing. No fevers overnight. Objective - Vital Signs/Intake and Output Vital Signs (last 24 hours): Temp Pulse Resp BP Pulse Ox 98 F 98 H 18 146/93 H 93 L 09/06/17 05:50 09/06/17 05:50 09/06/17 05:50 09/06/17 05:50 09/06/17 05:50 Intake and Output: 09/06/17 09/06/17 06:59 18:59 Intake Total 1420 Balance 1420 - Medications Medications: Current Medications Alprazolam (Xanax) 0.5 mg PO DAILY BRITTNEY PRN Reason: Protocol Last Admin: 09/05/17 09:17 Dose: 0.5 mg Enoxaparin Sodium (Lovenox) 40 mg SC DAILY [facility] PRN Reason: Protocol Last Admin: 09/05/17 09:23 Dose: 40 mg Furosemide (Lasix) 40 mg PO DAILY [facility] Last Admin: 09/05/17 09:18 Dose: 40 mg Glipizide (Glucotrol Xl) 10 mg PO DAILY [facility] Last Admin: 09/05/17 09:18 Dose: 10 mg Meropenem 1g/NS 100mL IVPB (Meropenem 1g/Ns 100ml Ivpb) 1 gm in 100 mls @ 100 mls/hr IVPB Q8 BRITTNEY PRN Reason: Protocol Stop: 09/08/17 23:31 Last Admin: 09/06/17 05:28 Dose: 100 mls/hr Gentamicin Sulfate 2 mg/Heparin Sodium (Porcine) 5,000 units/ Sodium Chloride 2 mls @ 2 mls/min CVC Q48H BRITTNEY Stop: 09/16/17 10:31 Last Admin: 09/04/17 11:21 Dose: Not Given Vancomycin HCl (Vancomycin 1gm) 1 gm in 250 mls @ 167 mls/hr IVPB Q12H [facility]ITTNEY PRN Reason: Protocol Last Admin: 09/05/17 21:27 Dose: 167 mls/hr Insulin Human Regular (Humulin R Low) 0 units SC ACHS BRITTNEY PRN Reason: Protocol Last Admin: 09/05/17 21:43 Dose: Not Given Lisinopril (Zestril) 10 mg PO DAILY [facility] Last Admin: 09/05/17 09:17 Dose: 10 mg Loratadine (Claritin) 10 mg PO DAILY [facility] Last Admin: 09/05/17 09:17 Dose: 10 mg Metoclopramide HCl (Reglan) 10 mg IVP ACHS PRN PRN Reason: Nausea/Vomiting Metoprolol Tartrate (Lopressor) 25 mg PO BRK [facility] Last Admin: 09/05/17 08:12 Dose: 25 mg Montelukast Sodium (Singulair) 10 mg PO DAILY [facility] Last Admin: 09/05/17 09:17 Dose: 10 mg Morphine Sulfate (Morphine Immediate Release Tab) 15 mg PO Q4H PRN PRN Reason: Pain, moderate (4-7) Last Admin: 09/05/17 14:26 Dose: 15 mg (Fentanyl [Subsys] 1 ([place])) 1 spray PO DAILY [facility] Last Admin: 09/05/17 09:34 Dose: Not Given Ondansetron HCl (Zofran Inj) 4 mg IVP Q6H PRN PRN Reason: Nausea/Vomiting Last Admin: 09/05/17 07:57 Dose: 4 mg Pantoprazole Sodium (Protonix Ec Tab) 40 mg PO DAILY [facility] Last Admin: 09/05/17 09:17 Dose: 40 mg Pregabalin (Lyrica) 75 mg PO DAILY [facility] Last Admin: 09/05/17 09:23 Dose: 75 mg Vancomycin HCl (Vancocin 25 Mg/Ml (Oral Use)) 125 mg PO QID [facility] PRN Reason: Protocol Last Admin: 09/05/17 21:39 Dose: 125 mg - Labs Labs: 09/03/17 06:30 09/03/17 06:30 PT 12.9 SECONDS (9.4-12.5) H 09/01/17 16:00 INR 1.18 (0.93-1.08) H 09/01/17 16:00 APTT 58.3 Seconds (25.1-36.5) H 09/01/17 16:00 - Constitutional Appears: Non-toxic, Chronically Ill - Head Exam Head Exam: NORMAL INSPECTION - ENT Exam ENT Exam: Mucous Membranes Moist - Neck Exam Neck Exam: absent: Lymphadenopathy, Meningismus - Respiratory Exam Respiratory Exam: Decreased Breath Sounds Additional comments: right anterior chest wall port in place with dressings - Cardiovascular Exam Cardiovascular Exam: +S1, +S2 - GI/Abdominal Exam GI & Abdominal Exam: Soft. absent: Tenderness - Extremities Exam Additional comments: left arm with dressings in place Assessment and Plan - Assessment and Plan (Free Text) Plan: Assessment sepsis due to E. faecium and methicillin-resistant coagulase negative staph bacteremia, probably PICC line infection with associated DVT S/P removal R/O C. diff. associated diarrhea history of Klebsiella bacteremia, probably port infection DVT of the vein associated with mediport S/P mediport placement chronic renal failure pancreatic cancer HTN history of Hepatitis C history of TIA COPD Plan on Merrem (to complete the therapy for the Klebsiella bacteremia, day 37 of 42 days since the port had thrombus in the right internal jugular vein from 2016 which may have been associated with the port; also continue the Gentamicin lock therapy) - would recommend removal of port since there was DVT - for port removal possibly today continue Vancomycin (day 3 since first negative blood cx) - since there is DVT will need 4-6 weeks of antibiotics for this; will get Vanco trough follow up stool for C. diff., continue PO Vancomycin (day 5) will continue to monitor clinically overall prognosis is poor
[2017-09-06] MEDS: SODIUM CHLORIDE 0.9% CVC SCH (17:01)
[2017-09-06] MEDS: GENTAMICIN SULFATE CVC SCH (17:01)
[2017-09-06] MEDS: HEPARIN CVC SCH (17:01)
--- NOTE | 2017-09-06 20:12 | PN ---
PULMONARY PROGRESS NOTE DATE: 09/06/2017 REFERRING PHYSICIAN: Dr. Ferrara. SUBJECTIVE: She is lying in the bed. Sleepy, arousable. No headache. No rhinitis. No nausea. No vomiting. No diarrhea. Abdominal pain is little better with pain medication. No leg pain or leg swelling. OBJECTIVE: GENERAL: No acute distress. VITAL SIGNS: Temperature is 98, heart rate is 70, respiratory rate is 20, blood pressure 148/90, pulse ox 93% on room air. HEENT: Moist mucous membrane. No oral thrush noted. NECK: Supple. No JVD. LUNGS: Has fair airflow with few rhonchi. HEART: S1 and S2. ABDOMEN: Soft, nontender. No organomegaly. Does have epigastric tenderness. EXTREMITIES: There is no edema. NEUROLOGIC: Sleepy, arousable. Follows simple commands. MEDICATIONS: She is on Claritin 10 mg daily, Glucotrol 10 gm daily, insulin coverage, Lasix 40 mg daily, metoprolol tartrate 25 mg daily, Lovenox 40 mg subcutaneous daily, Lyrica 75 mg daily, meropenem 1 g q.8 hours, morphine immediate release 50 mg q. 4 hours p.r.n., Protonix 40 mg daily, Reglan 10 mg before meal and at bedtime, Singulair 10 mg daily, vancomycin 125 mg q.i.d., also vancomycin 1 g IV q. 12 hours, Xanax 0.5 mg daily, Zestril 10 mg daily, and Zofran p.r.n. basis. LABORATORY DATA: Shows blood sugar this morning 104. IMPRESSION AND PLAN: Resolving bacteremia, deep venous thrombosis, central line been removed, metastatic adenocarcinoma involving the pancreatic duct, requiring percutaneous stent, metastatic disease to the lungs and the liver, cancer-related pain with nausea, vomiting. Continue pain management, keep head at 45 degrees, gastric prophylaxis, deep venous thrombosis prophylaxis. Could not anticoagulate the patient because of gastrointestinal bleed. Thank you and we will follow up with you. Linnea Stephen MD
[2017-09-06] MEDS: Silver Sulfadiazine 1% Cream (25 gm) TP SCH (23:29)
[2017-09-07] MEDS: Meropenem 1g/NS 100mL IVPB 1 GM/100 ML PIGGYBACK IVPB SCH ×2 (05:56→13:47)
[2017-09-07] MEDS: Insulin Reg-LOW-Coverage SC SCH ×4 (08:12→21:03)
--- NOTE | 2017-09-07 09:31 | PN ---
DATE: 09/06/2017 SUBJECTIVE: The patient was seen and examined at the bedside. [id number] was assisting at the bedside. Length of time discussion done with the patient's [id number]. All questions were answered. They talked to the [id number] about the patient's status about code and she said she will talk to the patient. No nausea, vomiting, or diarrhea. No headaches. No dizziness. Abdominal pain is little bit better. No swelling of the leg. PHYSICAL EXAMINATION: VITAL SIGNS: Temperature 98, heart rate 70, respiratory rate 20, blood pressure 148/90, and pulse oximetry 93% on room air. HEENT: Head is normocephalic and atraumatic. Eyes; PERRLA. Extraocular muscles are intact. Conjunctivae clear. Nose patent. Mucous membranes moist. NECK: Supple. No carotid bruits. No JVD or thyromegaly. CHEST: Bilaterally symmetrical. HEART: S1 and S2 positive. LUNGS: Clear to auscultation. ABDOMEN: Soft. Bowel sounds positive. No organomegaly. EXTREMITIES: No edema. No cyanosis. NEUROLOGIC: The patient is awake and alert. Moving all 4 extremities. No focal deficit. MEDICATIONS: Claritin, Glucotrol, Lasix, metoprolol, Lovenox, Lyrica, meropenem, morphine, Protonix, Reglan, Singulair, vancomycin, Xanax, Zestril, and Zofran. LABORATORY DATA: We do not have recent lab today, but I reviewed old labs. Sugar is 104. ASSESSMENT AND PLAN: Ms. 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 We will continue present treatment. Today, the patient is supposed to go for port removal. I saw the patient early in the morning. Gastrointestinal and deep venous thrombosis prophylaxis. We will followup. Georgina Ferrara MD [facility] # [id number]
[2017-09-07] MEDS ORDERED: Vancomycin 1gm in NS 250ml 1 GM/250 ML BAG IVPB STA (09:47)
[2017-09-07] MEDS: Pantoprazole 40 mg EC Tab PO SCH (10:09)
[2017-09-07] MEDS: Enoxaparin 40 mg Syringe SC SCH (10:16)
[2017-09-07] MEDS: GlipiZIDE 10 mg SR Tab PO SCH (10:19)
[2017-09-07] MEDS: Vancomycin 1gm in NS 250ml 1 GM/250 ML BAG IVPB SCH ×2 (10:23→23:26)
[2017-09-07] MEDS: FENTANYL PO SCH (10:24)
[2017-09-07] MEDS: Vancomycin 25 MG/ML PO SCH ×4 (10:25→23:29)
[2017-09-07] MEDS: Morphine 15 mg Immediate Release Tab PO PRN ×2 (10:39→21:06)
--- NOTE | 2017-09-07 12:32 | CP.PCM.PN ---
Subjective - Date & Time of Evaluation Date of Evaluation: 09/07/17 Time of Evaluation: 10:35 - Subjective Subjective: Comfortable, some pain around the right chest wall port. No fevers overnight. Objective - Vital Signs/Intake and Output Vital Signs (last 24 hours): Temp Pulse Resp BP Pulse Ox 98.7 F 87 20 132/72 95 09/07/17 06:00 09/07/17 06:00 09/07/17 06:00 09/07/17 06:00 09/07/17 06:00 Intake and Output: 09/07/17 09/07/17 06:59 18:59 Intake Total 570 Output Total 0 Balance 570 - Medications Medications: Current Medications Alprazolam (Xanax) 0.5 mg PO DAILY [facility] PRN Reason: Protocol Last Admin: 09/06/17 10:25 Dose: 0.5 mg Enoxaparin Sodium (Lovenox) 40 mg SC DAILY [facility] PRN Reason: Protocol Last Admin: 09/06/17 10:23 Dose: 40 mg Furosemide (Lasix) 40 mg PO DAILY [facility] Last Admin: 09/06/17 10:23 Dose: 40 mg Glipizide (Glucotrol Xl) 10 mg PO DAILY [facility] Last Admin: 09/06/17 10:23 Dose: 10 mg Meropenem 1g/NS 100mL IVPB (Meropenem 1g/Ns 100ml Ivpb) 1 gm in 100 mls @ 100 mls/hr IVPB Q8 [facility] PRN Reason: Protocol Stop: 09/08/17 23:31 Last Admin: 09/07/17 05:56 Dose: 100 mls/hr Gentamicin Sulfate 2 mg/Heparin Sodium (Porcine) 5,000 units/ Sodium Chloride 2 mls @ 2 mls/min CVC Q48H [facility] Stop: 09/16/17 10:31 Last Admin: 09/06/17 17:01 Dose: 2 mls/min Vancomycin HCl (Vancomycin 1gm) 1 gm in 250 mls @ 167 mls/hr IVPB Q12H [facility] PRN Reason: Protocol Last Admin: 09/06/17 21:41 Dose: 167 mls/hr Insulin Human Regular (Humulin R Low) 0 units SC ACHS [facility] PRN Reason: Protocol Last Admin: 09/07/17 08:12 Dose: Not Given Lisinopril (Zestril) 10 mg PO DAILY [facility] Last Admin: 09/06/17 10:26 Dose: 10 mg Loratadine (Claritin) 10 mg PO DAILY [facility] Last Admin: 09/06/17 10:22 Dose: 10 mg Metoclopramide HCl (Reglan) 10 mg IVP ACHS PRN PRN Reason: Nausea/Vomiting Metoprolol Tartrate (Lopressor) 25 mg PO BRK [facility] Last Admin: 09/06/17 08:26 Dose: 25 mg Montelukast Sodium (Singulair) 10 mg PO DAILY [facility] Last Admin: 09/06/17 10:25 Dose: 10 mg Morphine Sulfate (Morphine Immediate Release Tab) 15 mg PO Q4H PRN PRN Reason: Pain, moderate (4-7) Last Admin: 09/06/17 21:43 Dose: 15 mg (Fentanyl [Subsys] 1 (Banks)) 1 spray PO DAILY [facility] Last Admin: 09/06/17 10:23 Dose: Not Given Ondansetron HCl (Zofran Inj) 4 mg IVP Q6H PRN PRN Reason: Nausea/Vomiting Last Admin: 09/05/17 07:57 Dose: 4 mg Pantoprazole Sodium (Protonix Ec Tab) 40 mg PO DAILY [facility] Last Admin: 09/06/17 10:25 Dose: 40 mg Pregabalin (Lyrica) 75 mg PO DAILY [facility] Last Admin: 09/06/17 10:24 Dose: 75 mg Silver Sulfadiazine (Silvadene 1% 25 Gm) 0 gm TP Q12 [facility] Last Admin: 09/06/17 23:29 Dose: 25 gm Vancomycin HCl (Vancocin 25 Mg/Ml (Oral Use)) 125 mg PO QID [facility] PRN Reason: Protocol Last Admin: 09/06/17 23:29 Dose: 125 mg - Labs Labs: 09/03/17 06:30 09/03/17 06:30 PT 12.9 SECONDS (9.4-12.5) H 09/01/17 16:00 INR 1.18 (0.93-1.08) H 09/01/17 16:00 APTT 58.3 Seconds (25.1-36.5) H 09/01/17 16:00 - Constitutional Appears: Non-toxic, Chronically Ill - Head Exam Head Exam: NORMAL INSPECTION - ENT Exam ENT Exam: Mucous Membranes Moist - Neck Exam Neck Exam: absent: Meningismus - Respiratory Exam Respiratory Exam: Decreased Breath Sounds Additional comments: right anterior chest wall port site with dressings in place - Cardiovascular Exam Cardiovascular Exam: +S1, +S2 - GI/Abdominal Exam GI & Abdominal Exam: Soft. absent: Tenderness Assessment and Plan - Assessment and Plan (Free Text) Plan: Assessment sepsis due to E. faecium and methicillin-resistant coagulase negative staph bacteremia, probably PICC line infection with associated DVT S/P removal R/O C. diff. associated diarrhea history of Klebsiella bacteremia, probably port infection DVT of the vein associated with mediport S/P mediport placement chronic renal failure pancreatic cancer HTN history of Hepatitis C history of TIA COPD Plan on Merrem (to complete the therapy for the Klebsiella bacteremia, day 38 of 42 days since the port had thrombus in the right internal jugular vein from 2016 which may have been associated with the port; also continue the Gentamicin lock therapy) - would recommend removal of port since there was DVT - awaiting Dr. Zamudio's evaluation continue Vancomycin (day 4 since first negative blood cx) - since there is DVT will need 4-6 weeks of antibiotics for this; Vanco trough last night was 12.8 - will give an extra dose of IV Vancomycin today and re-check trough level tomorrow follow up stool for C. diff., continue PO Vancomycin (day 6) will continue to monitor clinically overall prognosis is poor
[2017-09-07] MEDS: Silver Sulfadiazine 1% Cream (25 gm) TP SCH ×2 (13:46→21:07)
[2017-09-07] MEDS: Meropenem 1 GM in Dextrose 5% In Water 100 ML IVPB SCH (21:22)
--- NOTE | 2017-09-07 22:50 | PN ---
PULMONARY PROGRESS NOTE DATE: 09/07/2017 REFERRING PHYSICIAN: Georgina Ferrara MD SUBJECTIVE: She is lying in the bed, head at 45 degrees, watching TV, feels better. No headache. No rhinitis. No cough. No sputum production. Still have epigastric pain, some nausea. No leg pain. No leg swelling. OBJECTIVE: GENERAL: No acute distress. VITAL SIGNS: Temperature is 98, heart rate is 97, respiratory rate is 20, blood pressure 154/86 and pulse oximetry 92% on room air. HEENT: Moist mucous membrane. Crowded airway. NECK: Supple. No JVD. LUNGS: Fair airflow with few rhonchi. HEART: S1 and S2. ABDOMEN: Positive bowel sounds. Epigastric area tenderness. EXTREMITIES: There is no edema. NEUROLOGIC: Awake and alert. Follow simple commands. MEDICATIONS: She is on Claritin 10 mg daily, glipizide XL 10 mg daily, insulin coverage, Lasix 40 mg daily, metoprolol tartarate 25 mg daily, Lovenox 40 mg daily, Lyrica 75 mg daily, meropenem 1 g IV q.8 hours, morphine 50 mg q.4 hours p.r.n., Protonix 40 mg daily, Reglan 10 mg a.c. and bedtime p.r.n., Singulair 10 mg daily, vancomycin 125 mg q.i.d., vancomycin 1 g IV q.12 hours, Xanax 0.5 mg daily, Zestril 10 mg daily and Zofran p.r.n. basis. LABORATORY DATA: Shows blood sugar this morning 148. Repeat blood culture, urine culture. There is no growth. Initial blood culture has Gram-positive cocci. IMPRESSION AND PLAN: Resolving bacteremia, deep venous thrombosis, central line been removed, has a Port-A catheter, metastatic adenocarcinoma involving the head of pancreatic duct, liver and lungs, chronic lung disease, sleep apnea syndrome. Pulmonary point of view doing okay. Continue antibiotics. Keep head at 45 degrees. Bronchodilator. Pain management. Gastric prophylaxis. Sequential compression device to lower extremities. Thank you and we will follow with you. Linnea Stephen MD [facility] # [id number]
[2017-09-08] MEDS: Meropenem 1 GM in Dextrose 5% In Water 100 ML IVPB SCH ×3 (05:51→22:20)
[2017-09-08 06:48] LABS: HEMATOCRIT 32.6 % (36.0-48.0); MEAN CELL VOLUME 89.3 fl (80.0-105.0); MEAN CORPUSCULAR HEMOGLOBIN 27.1 pg (25.0-35.0); MEAN CORPUSCULAR HGB CONC 30.4 g/dl (31.0-37.0); MEAN PLATELET VOLUME 9.1 fl (7.0-11.0); RED CELL DISTRIBUTION WIDTH 15.6 % (11.5-14.5); WHITE BLOOD COUNT 10.8 10^3/ul (4.5-11.0)
[2017-09-08 07:31] LABS: ALB/GLOB RATIO 0.9 (1.1-1.8); ALKALINE PHOSPHATASE 99 U/L (38-126); ALT/SGPT 29 U/L (7-56); AST/SGOT 51 U/L (14-36); BILIRUBIN,TOTAL 0.5 mg/dL (0.2-1.3); BLOOD UREA NITROGEN 8 mg/dL (7-21); CALCIUM 9.2 mg/dL (8.4-10.5); CARBON DIOXIDE 36 mmol/L (21-33); CHLORIDE 103 mmol/L (98-107); GFR AFRICAN-AMERICAN > 60; SODIUM 144 mmol/L (132-148); TOTAL PROTEIN 6.5 g/dL (5.8-8.3)
[2017-09-08 07:37] LABS: POTASSIUM 2.9 mmol/L (3.6-5.0)
[2017-09-08 07:38] LABS: GLUCOSE,RANDOM 46 mg/dL (70-110)
[2017-09-08] MEDS ORDERED: Dextrose 50% SYRINGE Inj (50 ml) ONE (07:48)
[2017-09-08] MEDS: Morphine 15 mg Immediate Release Tab PO PRN ×3 (08:10→20:23)
[2017-09-08] MEDS ORDERED: Dextrose 50% SYRINGE Inj (50 ml) IVP ONE (08:32)
--- NOTE | 2017-09-08 08:54 | PN ---
DATE: 09/07/2017 SUBJECTIVE: The patient is a 67-year-old female. The patient is seen and examined on the bedside status post port change, comfortable. Still complaining about abdominal pain. No nausea, vomiting or diarrhea. No headache or dizziness. No chest pain. No palpitation. No fever. No chills. PHYSICAL EXAMINATION: VITAL SIGNS: Temperature 98.7, pulse 87, respiratory rate 20, blood pressure 132/72, pulse oximetry 95. HEENT: Head: Normocephalic and atraumatic. Eyes: PERRLA. Extraocular muscles are intact. Conjunctivae are clear. Nose is patent. NECK: Supple. No carotid bruits. No JVD or thyromegaly. CHEST: Bilaterally symmetrical. HEART: S1 and S2 positive. LUNGS: Clear to auscultation. ABDOMEN: Soft. Bowel sounds are positive. No organomegaly. EXTREMITIES: No edema. No cyanosis. NEUROLOGIC: The patient is awake and alert. Moving all 4 extremities. No focal deficits. LABORATORY DATA: White blood cells 13.2, hemoglobin 11.2, hematocrit 35.5, platelets 238. Sodium 140, potassium 3.6, BUN 5 . Glucose 101. MEDICATIONS: Xanax, Lovenox, Lasix, Glucotrol, heparin, vancomycin, insulin, Zestril, Claritin, Lopressor, Singulair, morphine, Protonix, and vancomycin. ASSESSMENT AND PLAN: The patient is a 67-year-old lady with leukocytosis, anemia, had sepsis due to, coagulase-negative Staph bacteremia, probably PICC line infection with associated deep venous thrombosis status post removal. Rule out Clostridium difficile toxin colitis associated with diarrhea is improved. Klebsiella bacteremia, probably port infection. Deep venous thrombosis of the MediPort associated vein, status post MediPort placement. Chronic renal failure, pancreatic cancer, hypertension, history of hepatitis C, never got treatment, history of transient ischemic attack, chronic obstructive pulmonary disease. The patient has change of the port, getting antibiotics. We will continue vancomycin on day 6. Overall, prognosis is poor. Spoke to the patient and family. Bacteremia is almost resolving. Had adenocarcinoma of the pancreatic duct requiring percutaneous stent. Metastasis to the lungs and liver. Pain of malignancy, nauseousness of malignancy. Continue present management. Gastrointestinal and deep venous thrombosis prophylaxis. We will follow up. Georgina Ferrara MD [facility] # [id number] [facility]
[2017-09-08] MEDS: FENTANYL PO SCH (09:17)
[2017-09-08] MEDS: Insulin Reg-LOW-Coverage SC SCH ×4 (09:17→22:36)
[2017-09-08] MEDS: GlipiZIDE 10 mg SR Tab PO SCH (09:31)
[2017-09-08] MEDS: Pantoprazole 40 mg EC Tab PO SCH (09:31)
[2017-09-08] MEDS: Enoxaparin 40 mg Syringe SC SCH (09:32)
[2017-09-08] MEDS: Silver Sulfadiazine 1% Cream (25 gm) TP SCH ×2 (09:39→22:23)
[2017-09-08] MEDS: Vancomycin 25 MG/ML PO SCH ×2 (09:40→13:39)
[2017-09-08] MEDS: Vancomycin 1gm in NS 250ml 1 GM/250 ML BAG IVPB SCH ×2 (13:05→20:12)
[2017-09-08] MEDS ORDERED: Potassium Chloride 20 mEq ER Tab PO ONE (14:06)
[2017-09-08] MEDS ORDERED: GlipiZIDE 10 mg SR Tab PO SCH (14:07)
--- NOTE | 2017-09-08 17:24 | PN ---
PULMONARY PROGRESS NOTE DATE: 09/08/2017 REFERRING PHYSICIAN: Georgina Ferrara MD. SUBJECTIVE: She is lying in the bed, head at 45 degrees. Her boyfriend is at bedside. Feels okay. Still having epigastric pain, but no nausea or vomiting. Tolerating diet well. No leg pain or leg swelling. Developed a rash in the midsternal area. PHYSICAL EXAMINATION: GENERAL: In no acute distress. VITAL SIGNS: Temperature is 99, heart rate is 77 , respiratory rate is 20, blood pressure 116/78, pulse ox 96% on room air. HEENT: Moist mucous membrane. Crowded airway. NECK: Supple. No JVD. CHEST: Has a right chest Port-A catheter. At the midsternal area, some blisters. LUNGS: Have a fair airflow. HEART: S1 and S2. ABDOMEN: Positive bowel sounds. Epigastric tenderness. EXTREMITIES: There is no edema. NEUROLOGIC: Awake and alert. Follow simple commands. MEDICATIONS: She is on Claritin 10 mg daily, glipizide 10 mg daily, Lasix is on hold, metoprolol tartrate is 25 mg daily, Lovenox is 40 mg subcu daily, Lyrica 75 mg daily, meropenem 1 g IV q. 8 hours, morphine immediate release 50 mg q. 4 hours p.r.n., Protonix 40 mg daily, Reglan 10 mg a.c. and at bedtime, Singulair 10 mg daily, vancomycin 1 g IV q. 12 hours, Xanax 0.5 mg daily, Zestril 10 mg daily, and Zofran on p.r.n. basis. LABORATORY DATA: Shows hemoglobin 9.9, hematocrit 32.6, WBC 10.8, platelet count is 266. Sodium 144, potassium 2.9, chloride 103, bicarbonate 36, BUN 8, creatinine 0.6, glucose is 119. Calcium 9.2, AST 51, ALT 29, alkaline phosphatase is 99, albumin is 3.0. Microbiology: Repeat blood cultures have been negative. IMPRESSION AND PLAN: Resolving bacteremia; deep venous thrombosis, which was catheter related and PICC line had been removed; metastatic adenocarcinoma involving the ductal system, liver, and lungs; chronic lung disease; may have a sleep apnea syndrome. Pulmonary point of view, she is doing well. She has a new blister on the midsternal area, has some itching but no pain, need to watch closely for zoster. She is immunocompromised. Continue bronchodilator, pain medications, supportive care. Overall poor prognosis. Thank you and we will follow with you. Linnea Stephen MD
[2017-09-09 00:04] VITALS: O2SAT 94
--- NOTE | 2017-09-09 01:02 | PN ---
DATE: 09/08/2017 SUBJECTIVE: The patient was seen early this morning in room 363, bed 2. The patient has no fever, no chills, uneventful night. PHYSICAL EXAMINATION: VITAL SIGNS: Temperature is 99, blood pressure is /70, respiratory rate of 20, heart rate of 101. HEENT: Unremarkable. NECK: Supple. LUNGS: Decreased breath sounds. HEART: Normal S1 and S2. ABDOMEN: Soft, nontender. No rebound or guarding. LABORATORY EXAMINATION: Reveals white count to be 10.8, hemoglobin of 9. BUN of 8, creatinine of 0.6. Urinalysis is noted. Vancomycin trough of 12.8. Microbiology reveals the blood cultures are positive for coag-negative staph and Enterococcus and repeat blood cultures are no growth. REVIEW OF ORDERS: Reveals the patient to be on meropenem and vancomycin. Vancomycin requires renewal and vanco trough of 12.8 yesterday. ASSESSMENT AND PLAN: A 67-year-old female with sepsis with Enterococcus faecium and methicillin-resistant, coag-negative staph bacteriemia, probably PICC line infection with associated deep venous thrombosis, status post removal, must rule out Clostridium difficile associated diarrhea in a patient who had history of Klebsiella bacteremia, probably port infection at that time and MediPort placement and chronic renal failure, pancreatic cancer, hepatitis C, transient ischemic attack, chronic obstructive pulmonary disease; currently on meropenem day #39 of 42 days and , thrombus in the right internal jugular vein, which maybe associated with the port. We will continue on with gentamicin lock therapy and recommend removal of the port since there was a deep venous thrombosis, on vancomycin day #5 with vancomycin trough of 12.8. We will continue the present course. Long-term prognosis is poor. Luc Lynn MD
[2017-09-09 07:05] LABS: ALB/GLOB RATIO 0.9 (1.1-1.8); ALKALINE PHOSPHATASE 115 U/L (38-126); ALT/SGPT 31 U/L (7-56); AST/SGOT 60 U/L (14-36); BILIRUBIN,TOTAL 0.6 mg/dL (0.2-1.3); BLOOD UREA NITROGEN 7 mg/dL (7-21); CALCIUM 9.6 mg/dL (8.4-10.5); CARBON DIOXIDE 32 mmol/L (21-33); CHLORIDE 105 mmol/L (95-110); GFR AFRICAN-AMERICAN > 60; POTASSIUM 3.9 mmol/L (3.6-5.0); SODIUM 145 mmol/L (132-148); TOTAL PROTEIN 7.2 g/dL (5.8-8.3)
[2017-09-09 07:17] LABS: GLUCOSE,RANDOM 48 mg/dL (70-110)
[2017-09-09] MEDS: Insulin Reg-LOW-Coverage SC SCH ×2 (07:30→11:59)
--- NOTE | 2017-09-09 08:49 | PN ---
DATE: 09/08/2017 SUBJECTIVE: The patient is a 67-year-old female. The patient was seen and examined at the bedside. Looking comfortable. Today in the morning that she has episode of hypoglycemia. Potassium was low. Dextrose was given. Potassium was replaced, but then I saw the patient, she was feeling better. No nausea, vomiting or diarrhea. No hematuria or hematochezia. No swelling of the legs. No chest pain. No palpitation. No headache or dizziness. PHYSICAL EXAMINATION: VITAL SIGNS: Temperature 99.4, pulse 77, blood pressure 116/78, respiratory rate 20. HEENT: Head: Normocephalic, atraumatic. Eyes: PERRLA. Extraocular muscles are intact. Conjunctivae clear. Nose patent. Mucous membranes moist. NECK: Supple. No carotid bruits. No JVD or thyromegaly. CHEST: Bilaterally symmetrical. HEART: S1 and S2 positive. LUNGS: Clear to auscultation. ABDOMEN: Soft. Bowel sounds positive. No organomegaly. EXTREMITIES: No edema. No cyanosis. NEUROLOGIC: The patient is awake and alert. Moving all four extremities. No focal deficits. MEDICATIONS: Fentanyl, Claritin, Glucotrol, insulin, Lasix, Lopressor, Lovenox, Lyrica, dextrose, meropenem, morphine sulfate, Protonix, Reglan, Silvadene cream, Singulair, vancomycin, Xanax, Zestril, Zofran. LABORATORY DATA: White blood cells 10.8, hemoglobin 9.9, hematocrit 32.6, platelets 256. Sodium 144, potassium 2.9, BUN 8, creatinine 0.6. Glucose 119, 157, 52, 44, 46,148. AST 51. ASSESSMENT AND PLAN: Ms. Ivan Bazan is 67-year-old lady with leukocytosis improved, anemia, hypokalemia, replaced hypoglycemia, dextrose given, abnormal liver function test, ketonuria urinary tract infection, Has multiple comorbid resolving bacteremia, deep vein thrombosis. Central line removed, has Port-A-Cath, metastatic renal carcinoma involving the head of the pancreatic duct, liver, lungs, history of sleep apnea syndrome, chronic obstructive pulmonary disease. Continue antibiotics. Keep head elevated 45, bronchodilators, getting IV antibiotics. Gastric and deep vein thrombosis prophylaxis. Sequential compression device of the lower extremity, Physical Therapy. We will follow up. Georgina Ferrara MD [facility] # [id number]
[2017-09-09] MEDS: Morphine 15 mg Immediate Release Tab PO PRN (09:44)
[2017-09-09] MEDS: Pantoprazole 40 mg EC Tab PO SCH (09:45)
[2017-09-09] MEDS: Enoxaparin 40 mg Syringe SC SCH (09:48)
[2017-09-09] MEDS: Silver Sulfadiazine 1% Cream (25 gm) TP SCH (09:48)
[2017-09-09] MEDS: Vancomycin 1gm in NS 250ml 1 GM/250 ML BAG IVPB SCH (09:49)
[2017-09-09] MEDS: FENTANYL PO SCH (10:00)
[2017-09-09 13:05] VITALS: BP 138/88; PULSE 98
[2017-09-09 15:36] VITALS: RESP 19; TEMP 98.4
--- NOTE | 2017-09-10 01:59 | PN ---
DATE: 09/09/2017 SUBJECTIVE: The patient was seen earlier today in room 263, bed 2. No fevers, no chills. The patient was seen early, doing well. PHYSICAL EXAMINATION: VITAL SIGNS: Temperature is 98, blood pressure is 130/70, and respiratory rate of 18. HEENT: Unremarkable. NECK: Supple. LUNGS: Decreased breath sounds. HEART: Normal S1 and S2. ABDOMEN: Soft. LABORATORY EXAMINATION: Reveals the patient's white count is 10,800, hemoglobin of 8, and platelets of 266. Chemistry reveals a BUN of 7, creatinine of 0.6. Urinalysis is noted. Toxicology is reviewed and microbiology is noted. ASSESSMENT AND PLAN: A 67-year-old female who was seen early this morning in room 263, bed 2 with sepsis with Enterococcus faecium and methicillin-resistant Staphylococcus, coag-negative Staphylococcus and bacteriemia, probably a PICC line infection and a deep venous thrombosis, status post removal, and Clostridium difficile associated diarrhea in a patient with Klebsiella bacteremia and probable port infection and today is on vancomycin. The patient is day #6 of 28 days. We would recommended CBC, SMA-18, sed rate, C-reactive protein, and ,vancomycin trough level at least once weekly. I would monitor the vancomycin level very closely and the renal function closely. Luc Lynn MD
== END 2017-09-09 16:56 | disposition home health service (06) | DRG 314 ==
LOC: ED 14:27 → ERH 16:16 → 2RNO 17:32
PROVIDERS: ADMIT Internal Medicine; ATTEND Internal Medicine
PROC: 05PY33Z Removal of Infusion Device from Upper Vein, Percutaneous Approach (ICD-10-PCS; principal; 2017-09-03)
DX: T80.219A Unspecified infection due to central venous catheter, initial encounter (principal); A41.81 Sepsis due to Enterococcus; A41.02 Sepsis due to Methicillin resistant Staphylococcus aureus; C78.7 Secondary malignant neoplasm of liver and intrahepatic bile duct; C78.00 Secondary malignant neoplasm of unspecified lung; N39.0 Urinary tract infection, site not specified; E87.6 Hypokalemia; D64.9 Anemia, unspecified; Y83.8 Other surgical procedures as the cause of abnormal reaction of the patient, or of later complication, without mention of misadventure at the time of the procedure; I12.9 Hypertensive chronic kidney disease with stage 1 through stage 4 chronic kidney disease, or unspecified chronic kidney disease; F41.9 Anxiety disorder, unspecified; F32.9 Major depressive disorder, single episode, unspecified; N18.9 Chronic kidney disease, unspecified; G47.33 Obstructive sleep apnea (adult) (pediatric); E11.65 Type 2 diabetes mellitus with hyperglycemia; E11.22 Type 2 diabetes mellitus with diabetic chronic kidney disease; Z87.891 Personal history of nicotine dependence; J43.9 Emphysema, unspecified; G89.3 Neoplasm related pain (acute) (chronic); Z79.84 Long term (current) use of oral hypoglycemic drugs; Z85.07 Personal history of malignant neoplasm of pancreas; Z86.73 Personal history of transient ischemic attack (TIA), and cerebral infarction without residual deficits; Z91.19 Patient's noncompliance with other medical treatment and regimen; Z86.19 Personal history of other infectious and parasitic diseases; Z86.718 Personal history of other venous thrombosis and embolism

== ENCOUNTER 2017-11-17 13:01 | Emergency (ER) | payer MEDICARE ==
[2017-11-17 13:05] VITALS: BMI 32.7
[2017-11-17 13:29] VITALS: RESP 18; TEMP 98.7
[2017-11-17] MEDS ORDERED: Sodium Chloride 0.9% 1,000 ML IV STA (13:55)
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
[2017-11-17 14:21] LABS: BASO # 0.04 K/mm3 (0.0-2.0); BASO % 0.3 % (0.0-3.0); EOS # 0.1 (0.0-0.7); EOS % 0.9 % (1.5-5.0); GRAN # 8.84 (1.4-6.5); GRAN % 69.9 % (50.0-68.0); HEMOGLOBIN 10.7 g/dL (12.0-16.0); LYMPH # 2.3 (1.2-3.4); LYMPH % 18.1 % (22.0-35.0); MEAN CORPUSCULAR HEMOGLOBIN 26.4 pg (25.0-35.0); MEAN CORPUSCULAR HGB CONC 32.1 g/dl (31.0-37.0); MEAN PLATELET VOLUME 8.9 fl (7.0-11.0); MONO # 1.4 (0.1-0.6); MONO % 10.8 % (1.0-6.0); RBC 4.06 10^6/uL (3.5-6.1); RED CELL DISTRIBUTION WIDTH 20.8 % (11.5-14.5); WHITE BLOOD COUNT 12.7 10^3/ul (4.5-11.0)
[2017-11-17] MEDS ORDERED: Morphine 4 mg/ml ISec IVP STA ×2 (14:38→21:11)
[2017-11-17 14:51] LABS: ALB/GLOB RATIO 0.9 (1.1-1.8); ALBUMIN 3.3 g/dL (3.0-4.8); ALT/SGPT 21 U/L (7-56); AST/SGOT 30 U/L (14-36); BLOOD UREA NITROGEN 6 mg/dL (7-21); CALCIUM 8.9 mg/dL (8.4-10.5); GFR AFRICAN-AMERICAN > 60; GFR NON-AFRICAN AMERICAN > 60; MAGNESIUM 1.6 mg/dL (1.7-2.2)
[2017-11-17] MEDS ORDERED: Potassium Chl 40 mEq in D5-1/2 1,000 ML IV SCH (15:30)
[2017-11-17] MEDS ORDERED: Magnesium Sulfate 2 GM in Sodium Chloride 0.9% 100 ML IVPB ONE (15:30)
[2017-11-17 21:00] VITALS: BP 155/88; PULSE 68; O2SAT 97
== END 2017-11-17 22:28 | disposition home or self-care (01) ==
LOC: ED 13:01
DX: E83.42 Hypomagnesemia (principal); E87.6 Hypokalemia; C25.0 Malignant neoplasm of head of pancreas; E11.9 Type 2 diabetes mellitus without complications; I10 Essential (primary) hypertension; J44.9 Chronic obstructive pulmonary disease, unspecified; F17.210 Nicotine dependence, cigarettes, uncomplicated
CPT/HCPCS: 80053; 83735; 85025; 96361; 96365; 96375; 96376; 99285; J2270; J2405; J3475; J7040

== ENCOUNTER 2018-01-13 16:50 | Inpatient (IN) | payer MEDICARE, OTHER ==
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
[2018-01-13] MEDS ORDERED: Morphine 5 MG/ML SYRINGE IVP STA (17:20)
[2018-01-13] MEDS: Sodium Chloride 0.9% 1,000 ML IV SCH (17:52)
--- NOTE | 2018-01-13 18:01 | RAD ---
HISTORY: medical clearance COMPARISON: 09/01/2017 FINDINGS: LUNGS: No active pulmonary disease. PLEURA: No significant pleural effusion identified, no pneumothorax apparent. CARDIOVASCULAR: No radiographic findings to suggest acute or significant cardiovascular disease. Venous access catheter in stable, satisfactory position. OSSEOUS STRUCTURES: No significant abnormalities. VISUALIZED UPPER ABDOMEN: Normal. OTHER FINDINGS: None. IMPRESSION: No active disease. No significant interval change compared to the prior examination(s). Concordant results with the preliminary interpretation rendered by the emergency department physician procedure.
[2018-01-13 18:32] LABS: BASO # 0.03 K/mm3 (0.0-2.0); BASO % 0.3 % (0.0-3.0); EOS # 0.2 (0.0-0.7); EOS % 2.1 % (1.5-5.0); GRAN # 6.98 (1.4-6.5); GRAN % 65.8 % (50.0-68.0); LYMPH # 2.5 (1.2-3.4); LYMPH % 23.7 % (22.0-35.0); MEAN CELL VOLUME 86.9 fl (80.0-105.0); MEAN CORPUSCULAR HEMOGLOBIN 28.5 pg (25.0-35.0); MEAN CORPUSCULAR HGB CONC 32.8 g/dl (31.0-37.0); MEAN PLATELET VOLUME 9.2 fl (7.0-11.0); MONO # 0.9 (0.1-0.6); MONO % 8.1 % (1.0-6.0); RBC 4.21 10^6/uL (3.5-6.1); RED CELL DISTRIBUTION WIDTH 16.9 % (11.5-14.5); WHITE BLOOD COUNT 10.6 10^3/ul (4.5-11.0)
[2018-01-13 18:51] LABS: ALB/GLOB RATIO 0.8 (1.1-1.8); ALBUMIN 3.6 g/dL (3.0-4.8); ALT/SGPT 21 U/L (7-56); AST/SGOT 49 U/L (14-36); BLOOD UREA NITROGEN 11 mg/dL (7-21); CALCIUM 9.9 mg/dL (8.4-10.5); GFR AFRICAN-AMERICAN > 60; GFR NON-AFRICAN AMERICAN > 60; LIPASE 587 U/L (23-300)
[2018-01-13 18:54] LABS: B-TYPE NATRIURETIC PEPTIDE 754 pg/mL (0-450); TROPONIN I < 0.01 ng/mL
[2018-01-13] MEDS ORDERED: Iohexol 350 MG/100 ML VIAL ONE (18:57)
[2018-01-13 19:10] LABS: CK-MB 0.8 ng/mL (0.0-3.6)
[2018-01-13] MEDS ORDERED: Potassium Chloride 20 mEq ER Tab PO STA (19:13)
[2018-01-13] MEDS ORDERED: Dextrose 50% SYRINGE Inj (50 ml) IVP STA (19:44)
[2018-01-13] MEDS: Dextrose 5%/0.9% NS 1,000 ML IV SCH (19:56)
--- NOTE | 2018-01-13 20:13 | CT ---
EXAM: CT Abdomen and Pelvis With Intravenous Contrast EXAM DATE/TIME: 01/13/2018 5:20 PM CLINICAL HISTORY: 67 years old, female; Pain; Abdominal pain; Prior surgery; Surgery date: 6+ months; Surgery type: Appendectomy - colon resection - hysterectomy. Insertion biliary stent (06/10/17); Additional info: Pancreatic cancer, nausea, abdominal pain TECHNIQUE: Axial computed tomography images of the abdomen and pelvis with intravenous contrast. All CT scans at this facility use one or more dose reduction techniques, viz.: automated exposure control; ma/kV adjustment per patient size (including targeted exams where dose is matched to indication; i.e. head); or iterative reconstruction technique. Coronal and sagittal reformatted images were created and reviewed. CONTRAST: 95 mL of omni 350 administered intravenously. COMPARISON: CT - ABD PELVIS PO CONTRAST ONLY 2017-07-31 14:25 FINDINGS: Lower thorax: Heart size is normal. There are coronary artery calcifications. There is streak artifact from central line. There are multiple enlarged pericardial nodes, largest nodes have increased in size since the prior study. Lateral node measures approximately 2 x 1.6 mm. Medial node measures approximately 2.2 x 1 cm.There are multiple bilateral pulmonary nodules. Largest at the left base measures approximately 1.57 cm There is dependent atelectasis ABDOMEN: Liver: There is periportal edema. There are multiple low attenuation lesions within the liver difficult to further characterize. The largest are in the right lobe. Gallbladder and bile ducts: Gallbladder is distended. There is prominence of gallbladder wall. There is pericholecystic fluid. There is pneumobilia. There is a biliary stent. Pancreas: Tail and body of the pancreas are unremarkable. There is a mass in the head of the pancreas. The Spleen: See above. Adrenals: There is mild adrenal thickening bilaterally. Kidneys and ureters: There is a left renal cyst.Kidneys and ureters are otherwise unremarkable. Stomach and bowel: Stomach is partially distended with an air-fluid level. There is mild descending duodenal wall thickening. Rotation is normal. Small bowel is mildly distended with fluid and air. There is a mildly dilated loop in the midabdomen. There is no obstruction. There has been partial right hemicolectomy. There is an ileocolic anastomosis at the hepatic flexure. There is moderate stool in the colon. There is diverticulosis. Appendix: Surgically absent PELVIS: Bladder: unremarkable Reproductive: Uterus is mildly atrophic. There are coarse calcifications in the uterus. Adnexa are unremarkable. ABDOMEN and PELVIS: Intraperitoneal space: There is trace fluid in the pelvis. There is trace fluid in the right upper quadrant. There is no free air. Bones/joints: Bony structures are osteopenic. There degenerative changes. Soft tissues: There is a small fat containing ventral hernia. Vasculature: There are vascular calcifications. Splenic vein, superior mesenteric vein and portal veins are patent and enhance in the expected fashion. Lymph nodes: There is a 4.7 x 2.6 cm peripancreatic node. There is a 4.6 x 3.4 cm peripancreatic node posterior to the portal vein. There are multiple additional enlarged peripancreatic nodes. There are mildly enlarged perivascular nodes in the upper retroperitoneum. IMPRESSION: Multiple bilateral pulmonary nodules consistent with metastatic disease; increasing size of pericardial nodes; pancreatic head mass with adjacent adenopathy consistent with malignancy; pneumobilia with biliary stent, similar finding seen on the prior study; hepatic metastases; distended gallbladder with pericholecystic fluid, pericholecystic fluid seen on the prior study; focal ileus, no obstruction; partial right hemicolectomy; diverticulosis without CT findings of diverticulitis; fibroid uterus Additional nonemergent findings as described above.
[2018-01-13] MEDS ORDERED: HYDROmorphone 1 mg/ml ISec IVP STA (21:15)
--- NOTE | 2018-01-13 21:31 | US ---
EXAM: US Abdomen Limited, Right Upper Quadrant EXAM DATE/TIME: 01/13/2018 8:21 PM CLINICAL HISTORY: 67 years old, female; Pain; Abdominal pain; Flank; Right upper quadrant (ruq); Additional info: R/O cholecystitis ADDITIONAL HISTORY: Pancreatic cancer TECHNIQUE: Real-time ultrasound of the right upper quadrant with image documentation. COMPARISON: CT - ABD PELVIS IV CONTRAST ONLY 2018-01-13 19:15 FINDINGS: Liver: Hepatic texture is heterogeneous. There is dirty shadowing from biliary air. There is hepatopedal flow in the main portal vein. Gallbladder: Gallbladder is distended. There is sludge in the dependent gallbladder. There are no shadowing stones. There is wall prominence, 3.5 mm in diameter. Common bile duct: Common bile duct measures 6 mm in diameter. Pancreas: Pancreas is incompletely visualized. Only a portions of the pancreatic body is visualize demonstrated. Pancreatic duct is in the mid body measures approximately 4 mm in the mid body. Right kidney: Right kidney is normal in size. There is mild pelvocaliectasis. Inferior vena cava: There is a 3.6 x 4.8 cm node anterior to the inferior vena cava with mass effect on the inferior vena cava. IMPRESSION: Distended gallbladder with sludge, no shadowing stones; mildly prominent common duct; limited evaluation of liver and pancreas
[2018-01-13 21:33] LABS: URINE BILIRUBIN NEGATIVE (NEGATIVE); URINE BLOOD NEGATIVE (NEGATIVE); URINE GLUCOSE (UA) NEGATIVE (NEGATIVE); URINE LEUKOCYTE ESTERASE NEGATIVE Leu/uL (NEGATIVE); URINE PROTEIN NEGATIVE mg/dL (<30 mg/dL); URINE UROBILINOGEN 0.2 E.U./dL (<1 E.U./dL)
[2018-01-13 21:35] LABS: URINE APPEARANCE CLEAR (CLEAR); URINE COLOR YELLOW (YELLOW)
[2018-01-14] MEDS ORDERED: HYDROmorphone 1 mg/ml ISec IVP STA (00:46)
[2018-01-14 01:54] VITALS: BMI 31.2
[2018-01-14] MEDS ORDERED: Pneumococcal 23-Valent Vaccine IM ONE (01:54)
[2018-01-14] MEDS ORDERED: Influenza Vaccine 60 mcg/0.5 mL SYR (4YR UP) IM ONE (01:54)
[2018-01-14] MEDS: HYDROmorphone 0.5 mg/0.5 ml ISec IVP PRN ×2 (06:15→10:54)
[2018-01-14] MEDS: Dextrose 5%/0.9% NS 1,000 ML IV SCH ×2 (06:18→17:20)
[2018-01-14] MEDS ORDERED: Morphine 4 mg/ml ISec SC PRN (11:48)
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
[2018-01-14] MEDS: Morphine 4 mg/ml ISec IV PRN (17:19)
[2018-01-14] MEDS: Ammonium Lactate 12% Cream (140 g) TOP SCH (17:20)
--- NOTE | 2018-01-14 17:38 | CARD ---
APPROVED REPORT EKG Measurement Heart [id number] <Conclusion> Normal sinus rhythm Normal ECG
[2018-01-14] MEDS ORDERED: Dextrose 5%/0.9% NS 1,000 ML IV SCH (19:00)
[2018-01-15] MEDS: Pantoprazole 40 mg EC Tab PO SCH (08:32)
[2018-01-15] MEDS: Morphine 4 mg/ml ISec IV PRN ×2 (09:13→21:20)
[2018-01-15] MEDS: Sodium Chloride 0.9% 1,000 ML IV SCH (09:15)
[2018-01-15] MEDS: Ammonium Lactate 12% Cream (140 g) TOP SCH ×2 (09:20→19:25)
[2018-01-15] MEDS ORDERED: Pantoprazole 40 mg EC Tab PO SCH (10:00)
[2018-01-15 16:30] LABS: IRON 42 ug/dL (45-180)
[2018-01-15 16:39] LABS: % IRON SATURATION 17 % (20-55); TOTAL IRON BINDING CAPACITY 256 ug/dL (265-497)
[2018-01-15] MEDS: Budesonide 0.5 mg/2 ml Inhal Susp UD IH SCH (19:18)
[2018-01-15] MEDS: Arformoterol 15 mcg/2 ml Inh Sol IH SCH (19:18)
--- NOTE | 2018-01-16 01:37 | PN ---
DATE:01/15/2018 SUBJECTIVE: This patient was seen and evaluated earlier. Discussed with the nursing staff. Complains of epigastric pain, discomfort and nausea. The patient is on regular diet. PHYSICAL EXAMINATION VITAL SIGNS: Temperature is 97.7, blood pressure 142/91, pulse 64, respirations 20, O2 saturation 97%. HEENT: Atraumatic, anicteric. NECK: Supple. HEART: S1 and S2 heard. LUNGS: Bilateral air entry present. ABDOMEN: Soft. There is tenderness present in the epigastric area. EXTREMITIES: No cyanosis, no clubbing. LABORATORY DATA: No recent labs today. The patient's previous CT scan and ultrasound scans were reviewed. IMPRESSION: This 67-year-old patient with metastatic pancreatic cancer, status post metallic biliary stent placed, admitted with abdominal pain. The patient presently has nausea and vomiting. The patient is also diabetic. The patient was on regular diet. One of the consideration for this patient's present symptoms could be related to the gastric bezoar and gastroparesis. Other comorbidities include history of chronic hepatitis C, fibromyalgia, diabetes mellitus, chronic obstructive pulmonary disease, history of polysubstance abuse in the past, history of chronic lung disease, obstructive sleep apnea. The patient does have depression. RECOMMENDATIONS: I would recommend: 1. Changing the diet to soft diet with low residue or pureed diet. The patient is reluctant to take the pureed diet. We will change it to low residue soft diet. 2. History of chronic constipation. The patient is on pain medication before. I would start the patient on MiraLax, increase the dose to twice a day. May need reliator if there is no significant improvement. 3. Continue the PPI, on Protonix. Other problems include anxiety,depression. Thank you very much for allowing us to participate in the care of the patient. Thang Merchant MD MTDD
--- NOTE | 2018-01-16 04:37 | CON ---
DATE: PULMONARY CONSULTATION REFERRING PHYSICIAN: Dr. Ferrara. REASON FOR CONSULTATION: Chronic obstructive lung disease, sleep apnea syndrome, metastatic disease to the lung. HISTORY OF PRESENT ILLNESS: This is a 67-year-old female who has a history of chronic obstructive lung disease, diabetes, hypertension, metastatic pancreatic cancer supposed to be on chemotherapy, but noncompliant, does not show up on her Oncology office. Last treatment was early December, may have sleep apnea syndrome, did not use sleep study, comes in to the ER with abdominal pain with some nausea, vomiting, was admitted for further workup. On admission, x-ray shows some ileus, but did have a bowel movement this morning. There is no hemoptysis, no hematemesis, no hematuria. No leg pain or leg swelling. PAST MEDICAL HISTORY: Significant for metastatic pancreatic cancer with lesion to the liver and lungs, chronic obstructive lung disease, diabetes, hypertension, may have sleep apnea syndrome, also has a history of alcohol abuse in the past, history of hepatitis C, diverticulitis, GERD, anxiety and depression. FAMILY HISTORY: No significant cardiopulmonary disease reported. SOCIAL HISTORY: Active smoker. Denies any alcohol use at present. ALLERGIES: NONE KNOWN. MEDICATIONS: She is on lactic acid at affected area, metoprolol tartrate 25 mg daily, Lyrica 75 mg daily, morphine 3 mg IV q. 4 hours p.r.n., Protonix 40 mg daily, Singulair 10 mg daily, IV fluid normal saline 100 mL per hour, Xanax 1 mg at bedtime and 0.5 mg daily, Zestril 10 mg daily, Zofran p.r.n. basis. REVIEW OF SYSTEMS: No headache, no rhinitis. Has some cough and shortness of breath. No chest pain. Has abdominal pain and has bowel movement this morning. No dysuria. No leg pain or leg swelling. PHYSICAL EXAMINATION: GENERAL: Lying in the bed, no acute distress. VITAL SIGNS: Temperature is 98, heart rate 64, respiratory rate is 20, blood pressure 142/91, on room air. HEENT: Moist mucous membrane. Crowded airway. Mallampati score is IV. NECK: Supple. No JVD. LUNGS: Has fair airflow with rhonchi. HEART: S1 and S2. ABDOMEN: Soft. Epigastric tenderness EXTREMITIES: There is no edema. NEUROLOGIC: Awake and alert, follows simple command. LABORATORY DATA: Shows hemoglobin 12.0, hematocrit 36.6, WBC 10.6, platelet is 399. Sodium 143, potassium 3.5, chloride 102, bicarbonate 33, BUN 11, creatinine 0.8, glucose 135, calcium is 9.9, AST 49, ALT 21, alk phos is 143. Troponin less than 0.01. ProBNP 754. Albumin is 3.6, lipase is 587. CAT scan of the abdomen done on admission shows multiple bilateral pulmonary nodules consistent with the metastatic disease, increased size of the pericardial nodes, pancreatic head mass with adjacent adenopathy consistent with malignancy. There is also pneumobilia with biliary stent. Similar finding seen in the prior CT, has hepatic metastatic disease, distended gallbladder with pericholecystic fluid, focal ileus reported. There is also diverticulosis. Had a gallbladder ultrasound done, which showed distended gallbladder with sludge, no shadowing stone, mildly prominent common bile duct. IMPRESSION AND PLAN: Metastatic pancreatic cancer, had been on chemotherapy, noncompliant with followup, especially with the chemotherapy; diabetes; hypertension; chronic obstructive lung disease; may have sleep apnea syndrome. I had a long discussion with the patient about the risk of without chemotherapy. We will speak to Dr. Ferrara to figure out way that she can get the chemotherapy for now. Add inhaled bronchodilator. Continue pain management. Gastric prophylaxis, deep venous thrombosis prophylaxis. Sleep apnea precaution. Careful with sedation. Thank you and we will follow with you. Linnea Stephen MD
[2018-01-16] MEDS: Morphine 4 mg/ml ISec IV PRN ×2 (05:18→20:31)
[2018-01-16 06:35] LABS: HEMOGLOBIN 11.4 g/dL (12.0-16.0); MEAN CELL VOLUME 88.4 fl (80.0-105.0); MEAN CORPUSCULAR HEMOGLOBIN 28.1 pg (25.0-35.0); MEAN CORPUSCULAR HGB CONC 31.8 g/dl (31.0-37.0); MEAN PLATELET VOLUME 9.3 fl (7.0-11.0); RBC 4.06 10^6/uL (3.5-6.1); RED CELL DISTRIBUTION WIDTH 16.6 % (11.5-14.5)
[2018-01-16 07:02] LABS: BLOOD UREA NITROGEN 7 mg/dL (7-21); CALCIUM 9.8 mg/dL (8.4-10.5); GFR AFRICAN-AMERICAN > 60; GFR NON-AFRICAN AMERICAN > 60
[2018-01-16] MEDS: Pantoprazole 40 mg EC Tab PO SCH (07:45)
[2018-01-16] MEDS: Arformoterol 15 mcg/2 ml Inh Sol IH SCH ×2 (07:56→19:09)
[2018-01-16] MEDS: Budesonide 0.5 mg/2 ml Inhal Susp UD IH SCH ×2 (07:57→19:09)
[2018-01-16] MEDS: Enoxaparin 30 mg Syringe SC SCH (09:44)
[2018-01-16] MEDS: POLYETHYLENE GLYCOL 3350 17 GM/Dose PACKET PO SCH (09:45)
[2018-01-16] MEDS: Ammonium Lactate 12% Cream (140 g) TOP SCH ×2 (09:47→17:10)
--- NOTE | 2018-01-16 20:24 | PN ---
DATE: SUBJECTIVE: Patient is seen and examined at the bedside, looking comfortable. No nausea, vomiting, or diarrhea. No hematuria or hematochezia. Tolerating food very well. No fever, no chills. PHYSICAL EXAMINATION: VITAL SIGNS: Temperature 98.5, pulse 100, blood pressure noted HEENT: Head: Normocephalic, atraumatic. Eyes: PERRLA. Extraocular muscles are intact. Conjunctivae clear. Nose: Patent. Mucous membranes moist. NECK: Supple. No carotid bruits. No JVD or thyromegaly. CHEST: Bilaterally symmetrical. HEART: S1, S2 positive. LUNGS: Clear to auscultation. ABDOMEN: Soft. Bowel sounds positive. No organomegaly. EXTREMITIES: No edema. No cyanosis. NEUROLOGIC: Patient is awake and alert. Moving all four extremities. No focal deficits. MEDICATIONS: Brovana, lactic acid, Lopressor, Lovenox, Lyrica, MiraLax, morphine, Protonix, Pulmicort, Singulair, Xanax, Zestril, Zofran. LABORATORY DATA: White blood cell is 11.0, hemoglobin 11.4, hematocrit 35.9, and platelets 377. Sodium 141, potassium 3.7, BUN 7, creatinine 0.8. ASSESSMENT AND PLAN: Mrs. Hortensia Love is with anemia, has metastatic pancreatic cancer, status post metallic biliary stent placed. Patient came with nausea and vomiting, has history of diabetes mellitus, gastric bezoar, gastroparesis, history of hepatitis C positive, fibromyalgia, chronic obstructive pulmonary disease, polysubstance abuse by history and ethanol abuse, history of obstructive sleep apnea syndrome. Patient has depression. Dr. Merchant changed diet to soft with low residual or pureed diet, history of constipation. Patient is very noncompliant. Should be on MiraLax. She is not very regular in getting chemotherapy, tried to contact Dr. Baker patient's oncologist, about what to know the schedule of chemotherapy. Continue proton pump inhibitor, on Protonix. Gastrointestinal and deep venous thrombosis prophylaxis. Repeat labs. We will follow up. Georgina Ferrara MD [facility] # [id number] MTDD
--- NOTE | 2018-01-16 23:31 | PN ---
DATE: 01/16/2018 SUBJECTIVE: This patient was seen and evaluated earlier today. The patient is still complaining of some epigastric discomfort and nausea, but less. PHYSICAL EXAMINATION: VITAL SIGNS: Temperature is 98.5, pulse 100, blood pressure 163/120. HEENT: Atraumatic, anicteric. NECK: Supple. HEART: S1 and S2 heard. LUNGS: Bilateral air entry present. ABDOMEN: Soft. There is mild tenderness in the epigastric area. EXTREMITIES: No cyanosis, no clubbing. NEUROLOGICAL: Alert and oriented. Moves all the extremities. LABORATORY DATA: Hemoglobin 11.1, hematocrit 35.9, WBC is 11, platelets 377. Chemistry shows BMP is essentially unremarkable. Renal function; the GFR is 0.8, otherwise unremarkable. The patient did have LFTs done yesterday, alkaline phosphatase is mildly elevated to 143 and bilirubin done yesterday was 0.5. IMPRESSION AND PLAN: 1. This 67-year-old patient with pancreatic cancer, metastatic, status post metal stent placement, admitted with abdominal pain. The patient has poor compliance. The patient had increased abdominal discomfort and nausea yesterday, has history of gastroparesis. The discomfort could be related to the gastroparesis and bezoar. The diet has been changed to soft diet. The patient is feeling slightly better today. We will continue that. Continue the proton pump inhibitors. 2. History of chronic constipation. The patient is on narcotics, has been moving her bowels on MiraLax, we will continue that. 3. Metastatic pancreatic cancer with oncological followup. 4. Other comorbidities include chronic hepatitis C, fibromyalgia, anxiety, depression, diabetes mellitus, chronic obstructive pulmonary disease, obstructive sleep apnea, history of polysubstance abuse in the past. Thank you very much for allowing us to participate in the care of the patient. Thang Merchant MD
--- NOTE | 2018-01-17 02:44 | PN ---
DATE: PULMONARY PROGRESS NOTE REFERRING PHYSICIAN: Georgina Ferrara MD SUBJECTIVE: Patient is sitting at the side of the bed. Daughter is at bedside. Night was unremarkable. Feels better. No cough. No sputum production. No nausea. Mild abdominal pain. Had a bowel movement. No leg pain or leg swelling. PHYSICAL EXAMINATION: GENERAL: In no acute distress. VITAL SIGNS: Temp is 99, heart rate 69, respiratory rate is 18, blood pressure 148/78, pulse ox 97% on room air. HEENT: Moist mucous membrane. Crowded airway. Mallampati score is 4. NECK: Supple. No JVD. LUNGS: Have fair airflow with rhonchi. HEART: S1 and S2. ABDOMEN: Soft, does have epigastric tenderness. EXTREMITIES: There is no edema. NEUROLOGIC: Awake, alert. Follows simple commands. MEDICATIONS: She is on Brovana inhaled twice a day, lactic acid to affected area twice a day, metoprolol tartrate 25 mg twice a day, Lovenox 30 mg subcu daily, Lyrica 75 mg daily, MiraLax 17 g daily, morphine 3 mg IV q. 4 hour p.r.n., Protonix 40 mg , Pulmicort inhaled twice a day, Singulair 10 mg daily, Xanax 1 mg at bedtime and 0.5 mg daily, Zestril 20 mg daily, Zofran p.r.n. basis. LABORATORY DATA: Shows hemoglobin 11.4, hematocrit 35.9, WBC 11.0, platelet is 377. Sodium 141, potassium 3.7, chloride 104, bicarbonate 28, BUN 7, creatinine 0.8, glucose 91, calcium is 9.8. IMPRESSION AND PLAN: Metastatic pancreatic cancer, metastases to the liver and lungs, chronic obstructive lung disease, diabetes, hypertension, may have sleep apnea syndrome, noncompliant with the followup and chemotherapies. Continue bronchodilator, pain management, gastric prophylaxis. Sequential compression device to lower extremities. Follow up hemoglobin and hematocrit. I spoke to family at bedside. All the questions answered. Need to make some arrangements to assure the patient is getting her chemotherapy. Thank you and we will follow with you. Linnea Stephen MD [facility] # [id number]
[2018-01-17] MEDS: Morphine 4 mg/ml ISec IV PRN ×3 (06:30→20:14)
[2018-01-17] MEDS: Budesonide 0.5 mg/2 ml Inhal Susp UD IH SCH ×2 (07:19→19:38)
[2018-01-17] MEDS: Arformoterol 15 mcg/2 ml Inh Sol IH SCH ×2 (07:19→19:38)
[2018-01-17 07:26] LABS: HEMOGLOBIN 11.5 g/dL (12.0-16.0); MEAN CELL VOLUME 87.2 fl (80.0-105.0); MEAN CORPUSCULAR HEMOGLOBIN 27.7 pg (25.0-35.0); MEAN CORPUSCULAR HGB CONC 31.8 g/dl (31.0-37.0); MEAN PLATELET VOLUME 9.3 fl (7.0-11.0); RBC 4.15 10^6/uL (3.5-6.1); RED CELL DISTRIBUTION WIDTH 16.6 % (11.5-14.5); WHITE BLOOD COUNT 11.2 10^3/ul (4.5-11.0)
[2018-01-17 07:52] LABS: BLOOD UREA NITROGEN 9 mg/dL (7-21); CALCIUM 9.8 mg/dL (8.4-10.5); GFR AFRICAN-AMERICAN > 60; GFR NON-AFRICAN AMERICAN > 60
[2018-01-17] MEDS: Enoxaparin 30 mg Syringe SC SCH (09:13)
[2018-01-17] MEDS: Pantoprazole 40 mg EC Tab PO SCH (09:14)
[2018-01-17] MEDS: POLYETHYLENE GLYCOL 3350 17 GM/Dose PACKET PO SCH (09:15)
[2018-01-17] MEDS: Ammonium Lactate 12% Cream (140 g) TOP SCH ×2 (09:16→18:26)
--- NOTE | 2018-01-17 09:59 | PN ---
DATE: 01/15/2018 SUBJECTIVE: The patient is a 67-year-old female. The patient was seen and examined on the bedside, looking comfortable. No nausea, vomiting, diarrhea. Still having abdominal pain. No headache. No dizziness. No chest pain. No palpitation. No hematuria or hematochezia. PHYSICAL EXAMINATION: VITAL SIGNS: Temperature 98.2, pulse 65, blood pressure 167/97, respiratory rate 18. HEENT: Head normocephalic, atraumatic. Eyes PERRLA. Extraocular muscles intact. Conjunctivae clear. Nose patent. Mucous membrane moist. NECK: Supple. No carotid bruit. No JVD or thyromegaly. CHEST: Bilaterally symmetrical. HEART: S1 and S2 positive. LUNGS: Clear to auscultation. ABDOMEN: Soft. Bowel sounds positive. No organomegaly. EXTREMITIES: No edema. No cyanosis. NEUROLOGICAL: The patient is awake and alert. Moving all 4 extremities. No focal deficits. LABORATORY DATA: White blood cells 7.6, hemoglobin 12.0, hematocrit 36.6, platelets 399. Glucose 107, 97, 135. MEDICATIONS: Lac-Hydrin, Lopressor, Lyrica, morphine, Protonix, Singulair, NS, Xanax, Zestril, Zofran. ASSESSMENT AND PLAN: Ms. Hortensia Love, a 67-year-old lady with hepatitis C, liver mass, lung nodules, pancreatic cancer, fibromyalgia, diabetes mellitus type 2, gastroesophageal reflux disease, dyspepsia, chronic obstructive pulmonary disease, transient ischemic attack, noncompliant. Supposed to get chemotherapy from Dr. Navarrete 3 times a week, but because of different problems, first number transportation problem, she is noncompliant with Dr. Navarrete. Increase the compliance. The patient has pancreatic cancer with metastasis, has abdominal pain, diabetes mellitus, hypertension. On pureed diet as tolerated. Gastroenterology saw the patient. Advised clear diet if nauseous that we will continue. Deep venous thrombosis and gastrointestinal prophylaxis. IV hydration. Pain management. Monitoring of liver function test. We will continue present treatment. Repeat labs. We will follow up. Georgina Ferrara MD [facility] # [id number]
[2018-01-17] MEDS: Insulin Lispro (humaLOG) LOW Coverage SC SCH ×3 (12:24→22:00)
--- NOTE | 2018-01-17 15:21 | CP.PCM.PN ---
<Francia Olivas - Last Filed: 01/17/18 15:17> Subjective - Date & Time of Evaluation Date of Evaluation: 01/17/18 Time of Evaluation: 11:40 - Subjective Subjective: Chief complaint: R sided abdominal pain 67 yr female private office patient w/ history of HTN, DM II, COPD, Hepatitis C, fibromylagia, anxiety, depression, h/o poly substance abuse, Sleep apnea, colon resection, TIA & Pancreatic Cancer w/ becky (last chemotherapy on early 12/2017). Pt admitted to [facility] for intractable abdominal pain caused by possible obstruction vs. ureterlithiasis vs UTI vs. cholecystitis. Smt Technician believes that she is affected by gastroparesis. Her Slab Puller is consulted to evaluate her leukocytosis. Today , pt seen at bedside out of bed to chair reporting relief of pain in RUQ & RLQ abd. Pt denies any blurry vision, tinnitus, nausea, vomiting, fever chills, diarrhea, constipation, shortness of breath, chest pain, paresthesias, or urinary changes. Objective - Vital Signs/Intake and Output Vital Signs (last 24 hours): Temp Pulse Resp BP Pulse Ox 98.3 F 98 H 20 138/103 H 97 01/17/18 08:25 01/17/18 09:15 01/17/18 08:25 01/17/18 09:15 01/17/18 08:25 Intake and Output: 01/17/18 01/17/18 06:59 18:59 Intake Total 240 Balance 240 - Medications Medications: Current Medications Alprazolam (Xanax) 0.5 mg PO DAILY [facility] PRN Reason: Protocol Last Admin: 01/17/18 09:14 Dose: 0.5 mg Alprazolam (Xanax) 1 mg PO HS [facility] PRN Reason: Protocol Last Admin: 01/15/18 21:38 Dose: 1 mg Arformoterol Tartrate (Brovana) 15 mcg IH [id number] [facility] Last Admin: 01/17/18 07:19 Dose: Not Given Budesonide (Pulmicort Respules) 0.5 mg IH [id number] [facility] Last Admin: 01/17/18 07:19 Dose: Not Given Enoxaparin Sodium (Lovenox) 30 mg SC DAILY [facility] PRN Reason: Protocol Last Admin: 01/17/18 09:13 Dose: 30 mg Insulin Human Lispro (Humalog Low) 0 units SC ACHS [facility] PRN Reason: Protocol Last Admin: 01/17/18 12:24 Dose: Not Given Lactic Acid (Lac-Hydrin 12% Cream (140 G)) 0 ea TOP BID [facility] Last Admin: 01/17/18 09:16 Dose: 1 applic Lisinopril (Zestril) 20 mg PO DAILY [facility] Last Admin: 01/17/18 09:15 Dose: 20 mg Metoprolol Tartrate (Lopressor) 25 mg PO BID [facility] Last Admin: 01/17/18 09:15 Dose: 25 mg Montelukast Sodium (Singulair) 10 mg PO DAILY [facility] Last Admin: 01/17/18 09:15 Dose: 10 mg Morphine Sulfate (Morphine) 3 mg IV Q4H PRN PRN Reason: Pain, severe (8-10) Last Admin: 01/17/18 06:30 Dose: 3 mg Ondansetron HCl (Zofran Inj) 4 mg IVP Q4H PRN PRN Reason: Nausea/Vomiting Last Admin: 01/16/18 05:17 Dose: 4 mg Pantoprazole Sodium (Protonix Ec Tab) 40 mg PO ACB [facility] Last Admin: 01/17/18 09:14 Dose: 40 mg Polyethylene Glycol (Miralax) 17 gm PO DAILY [facility] Last Admin: 01/17/18 09:15 Dose: 17 gm Pregabalin (Lyrica) 75 mg PO DAILY [facility] Last Admin: 01/17/18 09:15 Dose: 75 mg - Labs Labs: 01/17/18 07:00 01/17/18 07:00 - Constitutional Appears: Well - Head Exam Head Exam: ATRAUMATIC, NORMAL INSPECTION, NORMOCEPHALIC Additional comments: alopecia - Eye Exam Eye Exam: EOMI, Normal appearance, PERRL Pupil Exam: NORMAL ACCOMODATION, PERRL - ENT Exam ENT Exam: Mucous Membranes Moist, Normal Exam - Neck Exam Neck Exam: Full ROM, Normal Inspection. absent: Lymphadenopathy - Respiratory Exam Respiratory Exam: Clear to Ausculation Bilateral, NORMAL BREATHING PATTERN - Cardiovascular Exam Cardiovascular Exam: REGULAR RHYTHM, +S1, +S2. absent: Murmur Additional comments: RCW portacath - GI/Abdominal Exam GI & Abdominal Exam: Soft, Normal Bowel Sounds. absent: Tenderness - Extremities Exam Extremities Exam: Full ROM, Normal Capillary Refill, Normal Inspection. absent : Joint Swelling, Pedal Edema - Back Exam Back Exam: NORMAL INSPECTION - Neurological Exam Neurological Exam: Alert, Awake, CN II-XII Intact, Normal Gait, Oriented x3 - Psychiatric Exam Psychiatric exam: Normal Affect, Normal Mood Assessment and Plan (1) Intractable abdominal pain Status: Acute (2) Metastatic cancer Status: Acute (3) Abdominal pain Status: Acute (4) Elevated liver enzymes Status: Acute (5) Hypokalemia Status: Acute (6) Malignant tumor head pancreas Status: Acute (7) Leukocytosis Status: Acute (8) Anemia Status: Acute (9) Gastroparesis Status: Acute - Assessment and Plan (Free Text) Plan: Input by Oncologist pending. Appreciate GI input. Pt tolerating cardiac diet. Electrolytes corrected. Labs ordered. R CW port. PT & OT. GI/VTE prophylaxis. Pain management: morphine subq Consults: GI - Dr. Merchant Hemo/Onc - Dr. Navarrete Pulmo - Dr. Stephen Reviewed: ECG = NSR US gallbladder = Distended gallbladder w/ sludge CXR = WNL CT abd/pelvis = multiple pulmonary nodules consistent with metastatic disease periportal edema, biliary stent w pneumobia, mass in head of pancreas ( consistent w. malignancy) w adjacent adenopathy, L renal cyst, small bowel is midly distended with fluid and air, dilated loop in the mid abdomen, partial R hemicolectomy, ileocolic anastomosis at hepatic flexure, moderate stool in colon , diverticulosis <Georgina Ferrara - Last Filed: 01/17/18 21:59> Objective - Vital Signs/Intake and Output Vital Signs (last 24 hours): Temp Pulse Resp BP Pulse Ox 98.4 F 74 19 122/76 97 01/17/18 16:00 01/17/18 17:25 01/17/18 16:00 01/17/18 17:25 01/17/18 16:00 Intake and Output: 01/17/18 01/18/18 18:59 06:59 Intake Total 240 Balance 240 - Medications Medications: Current Medications Alprazolam (Xanax) 0.5 mg PO DAILY [facility] PRN Reason: Protocol Last Admin: 01/17/18 09:14 Dose: 0.5 mg Alprazolam (Xanax) 1 mg PO HS [facility] PRN Reason: Protocol Last Admin: 01/15/18 21:38 Dose: 1 mg Arformoterol Tartrate (Brovana) 15 mcg IH [id number] [facility] Last Admin: 01/17/18 19:38 Dose: 15 mcg Budesonide (Pulmicort Respules) 0.5 mg IH [id number] [facility] Last Admin: 01/17/18 19:38 Dose: 0.5 mg Enoxaparin Sodium (Lovenox) 30 mg SC DAILY [facility] PRN Reason: Protocol Last Admin: 01/17/18 09:13 Dose: 30 mg Insulin Human Lispro (Humalog Low) 0 units SC ACHS [facility] PRN Reason: Protocol Last Admin: 01/17/18 16:59 Dose: Not Given Lactic Acid (Lac-Hydrin 12% Cream (140 G)) 0 ea TOP BID [facility] Last Admin: 01/17/18 18:26 Dose: 1 applic Lisinopril (Zestril) 20 mg PO DAILY [facility] Last Admin: 01/17/18 09:15 Dose: 20 mg Metoprolol Tartrate (Lopressor) 25 mg PO BID [facility] Last Admin: 01/17/18 17:25 Dose: 25 mg Montelukast Sodium (Singulair) 10 mg PO DAILY [facility] Last Admin: 01/17/18 09:15 Dose: 10 mg Morphine Sulfate (Morphine) 3 mg IV Q4H PRN PRN Reason: Pain, severe (8-10) Last Admin: 01/17/18 20:14 Dose: 3 mg Ondansetron HCl (Zofran Inj) 4 mg IVP Q4H PRN PRN Reason: Nausea/Vomiting Last Admin: 01/17/18 16:17 Dose: 4 mg Pantoprazole Sodium (Protonix Ec Tab) 40 mg PO ACB [facility] Last Admin: 01/17/18 09:14 Dose: 40 mg Polyethylene Glycol (Miralax) 17 gm PO DAILY [facility] Last Admin: 01/17/18 09:15 Dose: 17 gm Pregabalin (Lyrica) 75 mg PO DAILY [facility] Last Admin: 01/17/18 09:15 Dose: 75 mg - Labs Labs: 01/17/18 07:00 01/17/18 07:00 Assessment and Plan - Assessment and Plan (Free Text) Plan: 67 yr female private office patient w/ history of HTN, DM II, COPD, Hepatitis C, fibromylagia, anxiety, depression, h/o poly substance abuse, Sleep apnea, colon resection, TIA & Pancreatic Cancer w/ becky (last chemotherapy on early 12/2017). Pt admitted to [facility] for intractable abdominal pain caused by possible obstruction vs. ureterlithiasis vs UTI vs. cholecystitis. Smt Technician believes that she is affected by gastroparesis. Her Slab Puller is consulted to evaluate her leukocytosis. Today , pt seen at bedside out of bed to chair reporting relief of pain in RUQ & RLQ abd. Pt denies any blurry vision, tinnitus, nausea, vomiting, fever chills, diarrhea, constipation, shortness of breath, chest pain, paresthesias, or urinary changes.pt is seen and examined at bed side , looking comfortable , no change of status , will f/u
--- NOTE | 2018-01-18 01:54 | PN ---
DATE: 01/17/2018 PULMONARY PROGRESS NOTE REFERRING PHYSICIAN: Dr. Ferrara. SUBJECTIVE: She is lying in the bed. No headache, no rhinitis. Does not feel well, feel depressed. No nausea, no vomiting. Still have abdominal pain. Had a bowel movement yesterday. No leg pain or leg swelling. OBJECTIVE: GENERAL: In no acute distress. VITAL SIGNS: Temperature is 98, heart rate 74, respiratory rate is 20, blood pressure 122/76, pulse ox of 97% on room air. HEENT: Moist mucous membrane. Crowded airway. NECK: Supple. No JVD. LUNGS: Has fair airflow with rhonchi. HEART: S1 and S2. ABDOMEN: Positive bowel sounds. Soft, epigastric tenderness. EXTREMITIES: There is no edema. NEUROLOGIC: Awake and alert, follows simple command. MEDICATIONS: She is on Brovana 50 mg inhaled twice a day, insulin coverage, metoprolol tartrate 25 mg twice a day, Lovenox 30 mg subcu daily, Lyrica 75 mg daily, MiraLax 17 g daily, morphine 3 mg q. 4 hours p.r.n., Protonix 40 mg daily, Pulmicort inhaled twice a day, Singulair 10 mg daily, Xanax 1 mg at bedtime, also Xanax 0.5 mg daily, Zestril 20 mg daily, Zofran p.r.n. basis. LABORATORY DATA: Shows hemoglobin 11.5, hematocrit 36.2, WBC 11.2, platelet count is 301. Sodium 140, potassium 3.7, chloride 106, bicarbonate is 27, BUN 9, creatinine 0.8, glucose is 108, calcium is 9.8. IMPRESSION AND PLAN: Metastatic pancreatic cancer involving liver and lungs, chronic obstructive lung disease, diabetes, hypertension, may have sleep apnea syndrome, noncompliant with and chemotherapy. Pulmonary point of view, doing okay. Continue bronchodilator, keep head at 45 degrees. Gastric prophylaxis, deep venous thrombosis prophylaxis. Need Oncology followup for further plan of chemotherapy. Thank you and we will follow with you. Linnea Stephen MD
[2018-01-18] MEDS: Morphine 4 mg/ml ISec IV PRN ×3 (05:06→21:06)
[2018-01-18 07:13] LABS: MEAN CELL VOLUME 88.1 fl (80.0-105.0); MEAN CORPUSCULAR HEMOGLOBIN 27.8 pg (25.0-35.0); MEAN CORPUSCULAR HGB CONC 31.5 g/dl (31.0-37.0); MEAN PLATELET VOLUME 9.6 fl (7.0-11.0); RBC 3.96 10^6/uL (3.5-6.1); RED CELL DISTRIBUTION WIDTH 16.6 % (11.5-14.5); WHITE BLOOD COUNT 12.3 10^3/ul (4.5-11.0)
[2018-01-18] MEDS: Arformoterol 15 mcg/2 ml Inh Sol IH SCH ×2 (07:13→20:12)
[2018-01-18] MEDS: Budesonide 0.5 mg/2 ml Inhal Susp UD IH SCH ×2 (07:13→20:12)
[2018-01-18 07:36] LABS: ALB/GLOB RATIO 0.8 (1.1-1.8); ALBUMIN 3.4 g/dL (3.0-4.8); ALT/SGPT 15 U/L (7-56); AST/SGOT 39 U/L (14-36); BLOOD UREA NITROGEN 11 mg/dL (7-21); CALCIUM 9.7 mg/dL (8.4-10.5); GFR AFRICAN-AMERICAN > 60; GFR NON-AFRICAN AMERICAN > 60
--- NOTE | 2018-01-18 08:17 | PN ---
DATE: 01/17/2018 SUBJECTIVE: This patient is comfortable. PHYSICAL EXAMINATION: VITAL SIGNS: Temperature is 98.4, pulse 74, blood pressure 122/76. HEENT: Atraumatic, anicteric. NECK: Supple. HEART: S1 and S2 heard. LUNGS: Bilateral air entry present. ABDOMEN: Soft. Mild tenderness to the epigastric area. LABORATORY DATA: Hematocrit 36.2, WBC is 11.2, platelets of 301. BUN 9, creatinine 0.8. IMPRESSION: 1. This is a 67 year-old patient with metastatic pancreatic cancer, status post metal stent placed. The patient has poor compliance. 2. Has nausea and abdominal pain, history of gastroparesis, the patient is also diabetic. The diet has been now changed to soft diet. The patient is advised to chew well. Feels that nausea has improved. 3. History of chronic constipation. The patient is also on narcotic pain medications, on MiraLax, did move her bowels yesterday. Would increase the MiraLax to twice a day. If there is no significant improvement, we will consider relistor. 4. Other comorbidities include chronic hepatitis C, fibromyalgia, anxiety, depression, chronic obstructive pulmonary disease, obstructive sleep apnea and history of polysubstance abuse in the past. RECOMMENDATIONS: 1. Oncological followup. 2. Continue the MiraLax for constipation, PPI, and change of the diet as described above. Continue supportive care. Thank you very much for allowing us to participate in the care of the patient. Thang Merchant MD [facility]
[2018-01-18] MEDS: Insulin Lispro (humaLOG) LOW Coverage SC SCH ×4 (10:13→21:02)
[2018-01-18] MEDS: Pantoprazole 40 mg EC Tab PO SCH (10:14)
[2018-01-18] MEDS: Enoxaparin 30 mg Syringe SC SCH (10:14)
[2018-01-18] MEDS: POLYETHYLENE GLYCOL 3350 17 GM/Dose PACKET PO SCH ×2 (10:14→18:08)
[2018-01-18] MEDS: Ammonium Lactate 12% Cream (140 g) TOP SCH ×2 (10:20→17:38)
--- NOTE | 2018-01-18 19:55 | PN ---
DATE: SUBJECTIVE: Patient is 67 years old female. The patient is seen and examined at bedside, looking comfortable, sometimes getting nauseous. Psychiatrist is sitting with the patient, doing interview. No hematuria, no hematochezia. No fever, no chills. No headache, no dizziness. No chest pain. PHYSICAL EXAMINATION: VITAL SIGNS: Temperature 98, heart rate 85, blood pressure 148/89, and respiratory rate 19. HEENT: Head: Normocephalic, atraumatic. Eyes: PERRLA. Extraocular movements are intact. Conjunctivae are clear. Nose patent. Mucous membranes are moist. NECK: Supple. No carotid bruit, JVD, or thyromegaly. CHEST: Bilaterally symmetrical. HEART: S1 and S2 positive. LUNGS: Clear to auscultation. ABDOMEN: Soft. Bowel sounds are present. No organomegaly. EXTREMITIES: No edema. No cyanosis. NEUROLOGIC: The patient is awake and alert, moving all 4 extremities with no focal deficit. MEDICATIONS: Brovana, insulin, Lac-Hydrin, metoprolol, Lovenox, Lyrica, MiraLax, Protonix, Zofran, lisinopril, alprazolam. LABORATORY DATA: White blood cell 12.3, hemoglobin 11.3, hematocrit 34.9, and platelets 338. Sodium 141, potassium 3.6. BUN 11, creatinine 0.8. Glucose 119. AST 39, alkaline phosphatase is 138. ASSESSMENT AND PLAN: Ms. Hortensia Love is a 67-year-old lady with leukocytosis, anemia, uncontrolled diabetes mellitus, abnormal liver function test, has history of pancreatic cancer with metastasis, very very noncompliant for chemotherapy. I had lots of time discussion done with Dr. Navarrete. Patient will get chemotherapy tomorrow and after that, we will concrete bucket hooker patient with [facility] in [facility] for chemotherapy because the patient is not compliant to getting chemotherapy in center at oncologist's place. Patient has metastatic pancreatic cancer involving the liver, lungs, and brain; chronic obstructive lung disease; history of deep vein thrombosis; hypertension; and sleep apnea syndrome. Continue bronchodilators. Gastric prophylaxis and deep vein thrombosis prophylaxis. Psychiatrist is on the case because the patient is depressed because of her medical condition. Meanwhile, continue present treatment. Appreciated Dr. Stephen's input and Dr. Merchant's input. Patient's CAT scan of abdomen and pelvis done. Post metal stent placement; gastroparesis, diet changed to soft diet; history of chronic constipation, may be this is of the narcotics, getting MiraLax; history of hepatitis C; chronic obstructive pulmonary disease; fibromyalgia; anxiety; depression; diabetes mellitus; history of substance abuse. Repeat labs. We will follow up. Georgina Ferrara MD [facility]
--- NOTE | 2018-01-19 00:46 | PN ---
DATE: 01/18/2018 PULMONARY PROGRESS NOTE REFERRING PHYSICIAN: Dr. Georgina Ferrara. SUBJECTIVE: She is sitting up in bed. Night was unremarkable. No cough, no sputum production. No nausea. No marked abdominal pain. No bowel movement for 2 days. No leg pain or leg swelling. OBJECTIVE: GENERAL: In no acute distress. VITAL SIGNS: Temperature is 98, heart rate is 88, respiratory rate is 20, blood pressure 140/90, and pulse ox 98% on room air. HEENT: Moist mucous membrane. Crowded airway. Mallampati score is 1. NECK: Supple. No JVD. LUNGS: Fair airflow. No rhonchi. HEART: S1 and S2. ABDOMEN: Positive bowel sounds. Midepigastric area tenderness EXTREMITIES: There is no edema. NEUROLOGIC: Awake and alert. Follows simple commands. LABORATORY DATA: Shows hemoglobin 11.0, hematocrit 34.9, WBC 12.3, and platelet is 338. Sodium 141, potassium 3.6, chloride 106, bicarbonate 26, BUN 11, creatinine 0.8, glucose 125, calcium 9.7. AST 39, ALT 15, alkaline phosphatase is 138, and albumin is 3.4. MEDICATIONS: She is on Brovana inhale twice a day, insulin coverage, metoprolol tartrate 25 mg twice a day, Lovenox 30 mg subcutaneously daily, Lyrica 75 mg daily, MiraLax 17 g 3 times a day, morphine 3 mg IV q. 4h. p.r.n., Protonix 40 mg , Pulmicort inhale twice a day, Seroquel 12.5 mg at bedtime, Singulair 10 mg daily, Xanax 1 mg at bedtime and Xanax 0.5 mg daily, Restoril 20 mg daily, and Zofran on a p.r.n. basis. IMPRESSION AND PLAN: Metastatic pancreatic cancer involving the liver and lungs, chronic obstructive lung disease, diabetes, hypertension, may have sleep apnea syndrome, and constipated. Pulmonary point of view, doing okay. Continue pain management. We will give her Dulcolax on a p.r.n. basis. Inhaled bronchodilator. Gastric prophylaxis. Deep venous thrombosis prophylaxis. Oncology followup. Thank you and we will follow with you. Linnea Stephen MD [facility] # [phone]
[2018-01-19] MEDS: Arformoterol 15 mcg/2 ml Inh Sol IH SCH ×2 (07:19→20:18)
[2018-01-19] MEDS: Budesonide 0.5 mg/2 ml Inhal Susp UD IH SCH ×2 (07:19→20:18)
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
[2018-01-19] MEDS: Ammonium Lactate 12% Cream (140 g) TOP SCH ×2 (09:08→18:07)
[2018-01-19] MEDS: Insulin Lispro (humaLOG) LOW Coverage SC SCH ×4 (09:08→23:55)
[2018-01-19] MEDS: Pantoprazole 40 mg EC Tab PO SCH (09:09)
[2018-01-19] MEDS: POLYETHYLENE GLYCOL 3350 17 GM/Dose PACKET PO SCH ×3 (09:09→18:07)
[2018-01-19] MEDS: Enoxaparin 30 mg Syringe SC SCH (09:09)
[2018-01-19] MEDS: Morphine 4 mg/ml ISec IV PRN ×2 (12:28→20:35)
--- NOTE | 2018-01-19 14:36 | PN ---
DATE: 01/19/2018 PULMONARY PROGRESS NOTE REFERRING PHYSICIAN: Dr. Ferrara. SUBJECTIVE: She is lying in the bed. Night was unremarkable. Feels a little better today. No chest pain. No shortness of breath. Still has mild abdominal pain. Has a bowel movement last night. No leg pain or leg swelling. OBJECTIVE: GENERAL: In no acute distress. VITAL SIGNS: Temp is 99, heart rate is 72, respiratory rate is 20, blood pressure 143/94, pulse ox 97% on room air. HEENT: Moist mucous membrane. Crowded airway. NECK: Supple. No JVD. LUNGS: Have a fair airflow with rhonchi. HEART: S1 and S2. ABDOMEN: Soft. Mild epigastric tenderness. EXTREMITIES: There is no edema. NEUROLOGICAL: Awake and alert. Follows simple command. LABORATORY DATA: Reviewed. Blood sugar this morning is 132. MEDICATIONS: She is on Brovana inhaled twice a day, Dulcolax 10 mg p.r.n. basis, also on insulin coverage, metoprolol tartrate 25 mg twice a day, Lovenox 30 mg subcu daily, Lyrica 75 mg daily, MiraLax 17 g 3 times a day, morphine 3 mg IV q. 4 hours p.r.n., Protonix 40 mg daily, Pulmicort inhaled twice a day, Seroquel 12.5 mg at bedtime, Singulair 10 mg daily, Xanax 1 mg at bedtime and Xanax 0.5 mg daily, lisinopril 20 mg daily, Zofran p.r.n. basis. IMPRESSION AND PLAN: Metastatic pancreatic cancer involving the liver and lungs, chronic obstructive lung disease, diabetes, hypertension, may have sleep apnea syndrome, constipation. Pulmonary point of view, doing okay. Continue bronchodilator, keep head at 45 degrees. Also has a major depression, history of suicidal ideation in the remote past, anxiety disorder. We will continue anxiolytics, pain medication, gastric prophylaxis, deep venous thrombosis prophylaxis, fall precaution. Being followed by Gastroenterology. Oncology followup. Thank you and we will follow with you. Linnea Stephen MD
--- NOTE | 2018-01-19 18:18 | CP.PCM.PN ---
<Asia Hendrickson - Last Filed: 01/19/18 18:20> Subjective - Date & Time of Evaluation Date of Evaluation: 01/19/18 Time of Evaluation: 12:00 - Subjective Subjective: GI Progress Note Dr. Merchant Pt was seen and examined at bedside. Pt is unfortunately in poor spirits and feels minimal improvement in her symptoms at this time. Pt had a bm this morning however, she states as if something is still "blocked" in her belly. She still has abdominal pain, however it is better than yesterday. Pt denied fever, chills, sob, chest pain, nausea, vomiting, or dysuria. Objective - Vital Signs/Intake and Output Vital Signs (last 24 hours): Temp Pulse Resp BP Pulse Ox 97.7 F 72 18 162/100 H 100 01/19/18 16:00 01/19/18 16:00 01/19/18 16:00 01/19/18 18:06 01/19/18 16:00 Intake and Output: 01/19/18 01/19/18 06:59 18:59 Intake Total 780 540 Output Total 350 Balance 430 540 - Medications Medications: Current Medications Alprazolam (Xanax) 0.5 mg PO DAILY [facility] PRN Reason: Protocol Last Admin: 01/19/18 09:10 Dose: 0.5 mg Alprazolam (Xanax) 1 mg PO HS [facility] PRN Reason: Protocol Last Admin: 01/18/18 22:55 Dose: 1 mg Arformoterol Tartrate (Brovana) 15 mcg IH [id number] [facility] Last Admin: 01/19/18 07:19 Dose: Not Given Bisacodyl (Dulcolax) 10 mg RC DAILY PRN PRN Reason: Constipation Last Admin: 01/18/18 21:33 Dose: 10 mg Budesonide (Pulmicort Respules) 0.5 mg IH [id number] [facility] Last Admin: 01/19/18 07:19 Dose: Not Given Enoxaparin Sodium (Lovenox) 30 mg SC DAILY [facility] PRN Reason: Protocol Last Admin: 01/19/18 09:09 Dose: 30 mg Insulin Human Lispro (Humalog Low) 0 units SC ACHS [facility] PRN Reason: Protocol Last Admin: 01/19/18 18:07 Dose: Not Given Lactic Acid (Lac-Hydrin 12% Cream (140 G)) 0 ea TOP BID [facility] Last Admin: 01/19/18 18:07 Dose: 1 applic Lisinopril (Zestril) 20 mg PO DAILY [facility] Last Admin: 01/19/18 09:10 Dose: 20 mg Metoprolol Tartrate (Lopressor) 25 mg PO BID [facility] Last Admin: 01/19/18 18:06 Dose: 25 mg Montelukast Sodium (Singulair) 10 mg PO DAILY [facility] Last Admin: 01/19/18 09:10 Dose: 10 mg Morphine Sulfate (Morphine) 3 mg IV Q4H PRN PRN Reason: Pain, severe (8-10) Last Admin: 01/19/18 12:28 Dose: 3 mg Ondansetron HCl (Zofran Inj) 4 mg IVP Q4H PRN PRN Reason: Nausea/Vomiting Last Admin: 01/19/18 09:41 Dose: 4 mg Pantoprazole Sodium (Protonix Ec Tab) 40 mg PO ACB [facility] Last Admin: 01/19/18 09:09 Dose: 40 mg Polyethylene Glycol (Miralax) 17 gm PO TID [facility] Last Admin: 01/19/18 18:07 Dose: 17 gm Pregabalin (Lyrica) 75 mg PO DAILY [facility] Last Admin: 01/19/18 09:09 Dose: 75 mg Quetiapine Fumarate (Seroquel) 12.5 mg PO HS [facility] PRN Reason: Protocol Last Admin: 01/18/18 21:32 Dose: 12.5 mg - Labs Labs: 01/18/18 06:00 01/18/18 06:00 - Constitutional Appears: No Acute Distress, Chronically Ill - Head Exam Head Exam: ATRAUMATIC, NORMAL INSPECTION, NORMOCEPHALIC - Eye Exam Eye Exam: EOMI, Normal appearance, PERRL Pupil Exam: NORMAL ACCOMODATION, PERRL - ENT Exam ENT Exam: Mucous Membranes Moist, Normal Exam - Respiratory Exam Respiratory Exam: Clear to Ausculation Bilateral, NORMAL BREATHING PATTERN - Cardiovascular Exam Cardiovascular Exam: REGULAR RHYTHM, +S1, +S2. absent: Murmur - GI/Abdominal Exam GI & Abdominal Exam: Guarding, Soft, Tenderness (diffuse), Normal Bowel Sounds - Neurological Exam Neurological Exam: Alert, Awake, CN II-XII Intact, Normal Gait, Oriented x3 - Psychiatric Exam Psychiatric exam: Normal Affect, Normal Mood - Skin Skin Exam: Dry, Intact, Normal Color, Warm Assessment and Plan - Assessment and Plan (Free Text) Assessment: Assessment: Pancreatic cancer with metastasis Abdominal pain Leukocytosis Diabetes mellitus Hypertension Plan: On Puree diet as tolerated, if continue to have nausea consider clear liquid miralax/dulcolax as needed start GI prophylaxis, protonix 40 mg daily DVT prophylaxis: SCD while in bed IVF for hydration pain mgt Zofran PRN monitor LFTs, downtrended Discussed with Dr. Merchant <Thang Merchant V - Last Filed: 01/19/18 21:56> Objective - Vital Signs/Intake and Output Vital Signs (last 24 hours): Temp Pulse Resp BP Pulse Ox 97.7 F 72 18 162/100 H 100 01/19/18 16:00 01/19/18 16:00 01/19/18 16:00 01/19/18 18:06 01/19/18 16:00 Intake and Output: 01/19/18 01/20/18 18:59 06:59 Intake Total 540 Balance 540 - Medications Medications: Current Medications Alprazolam (Xanax) 0.5 mg PO DAILY [facility] PRN Reason: Protocol Last Admin: 01/19/18 09:10 Dose: 0.5 mg Alprazolam (Xanax) 1 mg PO HS [facility] PRN Reason: Protocol Last Admin: 01/19/18 21:07 Dose: 1 mg Arformoterol Tartrate (Brovana) 15 mcg IH [id number] [facility] Last Admin: 01/19/18 20:18 Dose: Not Given Bisacodyl (Dulcolax) 10 mg RC DAILY PRN PRN Reason: Constipation Last Admin: 01/18/18 21:33 Dose: 10 mg Budesonide (Pulmicort Respules) 0.5 mg IH [id number] [facility] Last Admin: 01/19/18 20:18 Dose: Not Given Enoxaparin Sodium (Lovenox) 30 mg SC DAILY [facility] PRN Reason: Protocol Last Admin: 01/19/18 09:09 Dose: 30 mg Insulin Human Lispro (Humalog Low) 0 units SC ACHS [facility] PRN Reason: Protocol Last Admin: 01/19/18 18:07 Dose: Not Given Lactic Acid (Lac-Hydrin 12% Cream (140 G)) 0 ea TOP BID [facility] Last Admin: 01/19/18 18:07 Dose: 1 applic Lisinopril (Zestril) 20 mg PO DAILY [facility] Last Admin: 01/19/18 09:10 Dose: 20 mg Metoprolol Tartrate (Lopressor) 25 mg PO BID [facility] Last Admin: 01/19/18 18:06 Dose: 25 mg Montelukast Sodium (Singulair) 10 mg PO DAILY [facility] Last Admin: 01/19/18 09:10 Dose: 10 mg Morphine Sulfate (Morphine) 3 mg IV Q4H PRN PRN Reason: Pain, severe (8-10) Last Admin: 01/19/18 20:35 Dose: 3 mg Ondansetron HCl (Zofran Inj) 4 mg IVP Q4H PRN PRN Reason: Nausea/Vomiting Last Admin: 01/19/18 21:01 Dose: 4 mg Pantoprazole Sodium (Protonix Ec Tab) 40 mg PO ACB [facility] Last Admin: 01/19/18 09:09 Dose: 40 mg Polyethylene Glycol (Miralax) 17 gm PO TID [facility] Last Admin: 01/19/18 18:07 Dose: 17 gm Pregabalin (Lyrica) 75 mg PO DAILY [facility] Last Admin: 01/19/18 09:09 Dose: 75 mg Quetiapine Fumarate (Seroquel) 12.5 mg PO HS [facility] PRN Reason: Protocol Last Admin: 01/19/18 21:05 Dose: 12.5 mg - Labs Labs: 01/18/18 06:00 01/18/18 06:00 Attending/Attestation - Attestation I have personally seen and examined this patient.: Yes I have fully participated in the care of the patient.: Yes I have reviewed all pertinent clinical information, including history, physical exam and plan: Yes Notes (Text): This is an addendum to GI progress report dictated by the Instrument Lens Inspector.The patient was seen and examined earlier. Medical records, lab studies, imagings were reviewed. Last 24 hours events reviewed. Agreed with the above treatment plan as outlined in Instrument Lens Inspector 's notes the with the addition of the following Patient is on MiraLAX 3 times a day On low residue soft diet On examination abdomen soft nontender Patient would benefit as an outpatient Movantik or Amitiza for constipation in view of the chronic pain medication He should also has gastroparesis would benefit from long-term low residue soft diet or pured diet Status post metal stent placement for pancreatic cancer LFT stable History of chronic hep C Very anxious noncompliant need close oncology follow-up 01/19/18 21:50
--- NOTE | 2018-01-19 23:49 | PN ---
DATE: Patient is a 67-year-old years old female. SUBJECTIVE: The patient is seen and examined at the bedside, looking comfortable. Still complaining about epigastric pain and sometimes feeling nauseous. No headache, no dizziness. No chest pain. No palpitations. No diarrhea. No constipation. No fever, no chills. Supposed to get chemotherapy today. Discussion done with Dr. Navarrete about chemotherapy. PHYSICAL EXAMINATION VITAL SIGNS: Temperature is 99, heart rate is 72, respiratory rate 20, blood pressure 143/94, pulse oximetry 97% on room air. HEENT: Head: Normocephalic, atraumatic. Eyes: PERRLA. Extraocular muscles intact. Conjunctivae are clear. Nose patent. Mucous membranes are moist. NECK: Supple. No carotid bruit. No JVD, or thyromegaly. CHEST: Bilaterally symmetrical. HEART: S1 and S2 positive. LUNGS: Clear to auscultation. ABDOMEN: Soft. Bowel sounds are present. No organomegaly. EXTREMITIES: No edema. No cyanosis. NEUROLOGIC: The patient is awake and alert, follows simple commands. MEDICATIONS: Brovana, Dulcolax, insulin coverage, metoprolol, Lovenox, Lyrica, Mirapex, morphine, Protonix, Pulmicort, Seroquel, Singulair, Xanax, lisinopril, Zofran. LABORATORY DATA: We do not have recent labs today, but I reviewed old labs. Blood sugar is 132. ASSESSMENT AND PLAN: Ms. Hortensia Love is a 67-year-old female with multiple medical problems; metastatic pancreatic cancer involving the liver and lungs; chronic obstructive lung disease; uncontrolled diabetes mellitus; hypertension; sleep apnea syndrome; constipation; pulmonary point of view, the patient is doing very good; she is supposed to get chemotherapy today; history of suicidal and homicidal ideation in the remote past; history of drug abuse, now the patient is improving, doing better. Gastrointestinal and deep vein thrombosis prophylaxis. Repeat labs. We will follow up. Georgina Ferrara MD
[2018-01-20 06:29] LABS: HEMOGLOBIN 11.3 g/dL (12.0-16.0); MEAN CELL VOLUME 86.7 fl (80.0-105.0); MEAN CORPUSCULAR HEMOGLOBIN 27.4 pg (25.0-35.0); MEAN CORPUSCULAR HGB CONC 31.7 g/dl (31.0-37.0); MEAN PLATELET VOLUME 9.5 fl (7.0-11.0); RBC 4.12 10^6/uL (3.5-6.1); RED CELL DISTRIBUTION WIDTH 16.2 % (11.5-14.5); WHITE BLOOD COUNT 11.5 10^3/ul (4.5-11.0)
[2018-01-20] MEDS: Morphine 4 mg/ml ISec IV PRN ×2 (06:58→11:07)
[2018-01-20 06:59] LABS: BLOOD UREA NITROGEN 9 mg/dL (7-21); GFR AFRICAN-AMERICAN > 60; GFR NON-AFRICAN AMERICAN > 60
[2018-01-20] MEDS: Arformoterol 15 mcg/2 ml Inh Sol IH SCH (07:12)
[2018-01-20] MEDS: Budesonide 0.5 mg/2 ml Inhal Susp UD IH SCH (07:13)
[2018-01-20] MEDS: Insulin Lispro (humaLOG) LOW Coverage SC SCH ×2 (08:11→17:05)
[2018-01-20 08:16] VITALS: RESP 20; TEMP 98; O2SAT 96
[2018-01-20] MEDS: Pantoprazole 40 mg EC Tab PO SCH (09:39)
[2018-01-20] MEDS: Enoxaparin 30 mg Syringe SC SCH (09:39)
[2018-01-20] MEDS: POLYETHYLENE GLYCOL 3350 17 GM/Dose PACKET PO SCH (09:40)
[2018-01-20 09:41] VITALS: BP 121/85; PULSE 86
[2018-01-20] MEDS: Ammonium Lactate 12% Cream (140 g) TOP SCH (10:05)
--- NOTE | 2018-01-20 16:29 | CON ---
DATE: 01/20/2018 PRESENTATION: The patient is a 67-year-old female seen at bedside. She was originally admitted to the hospital on 01/13/2018 for generalized upper abdominal pain for the past 2 days and nausea. The patient has history of hypertension, diabetes, COPD and pancreatic cancer. She had missed her last chemotherapy in 12/2017. Order for psychiatric consult was for 01/17/2018. I saw her first 2 days ago. The patient today appears to be doing well. She indicates that she is feeling much better with the addition of the Seroquel at night which she had been on in the past. It is very helpful to her she feels that getting a good night sleep makes a huge difference in terms of how she feels and her mood has been good. She indicates that she feels psychiatrically stable and denies any current symptoms. VITAL SIGNS: Her current vital signs include temperature of 98, pulse rate of 79, blood pressure of 127/83, respiratory rate of 20 and O2 sat of 96%. Her glucose level for today at 11:15 was 124. Medical team is trying to get her scheduled for her next chemotherapy treatment. MENTAL STATUS EXAMINATION: The patient is alert and oriented x3. Her eye contact is good. Her behavior is cooperative. Speech rate and volume are within normal limits. Her mood is euthymic. Her affect is full. Her thoughts are goal directed. She denies being suicidal or homicidal. Denies the presence of hallucinations, delusions, or paranoia. Her concentration and her focus, she reports, are poor and she has some memory deficit. Her sleep has improved and she indicates she also is enjoying her food. 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 PLAN: The patient adamantly denies being suicidal or homicidal. The patient does not appear in danger of hurting herself or others. She feels that she is stable psychiatrically and denies the need for any followup services. Indicates that it is stressful to have to get the chemo, that she is able to get her psychiatric medication from her primary medical doctor, Dr. Ferrara. Psychiatry will sign off. Thank you for the consult. Berenice Méndez APN [facility] # [id number] [facility]
--- NOTE | 2018-01-20 18:22 | CP.PCM.PN ---
Subjective - Date & Time of Evaluation Date of Evaluation: 01/20/18 Time of Evaluation: 10:55 - Subjective Subjective: Seen and examined at the bedside earlier today, chart review. Patient reports having in good size bowel movement. No reports of any bleeding. Reporting a good appetite. Still has pain but comfortable at this time. Denies nausea, vomiting, shortness of breath or chest pain. No acute overnight events reported. Objective - Vital Signs/Intake and Output Vital Signs (last 24 hours): Temp Pulse Resp BP Pulse Ox 98 F 86 20 121/85 96 01/20/18 08:15 01/20/18 09:40 01/20/18 08:15 01/20/18 09:40 01/20/18 08:15 Intake and Output: 01/20/18 01/20/18 06:59 18:59 Intake Total 580 600 Balance 580 600 - Labs Labs: 01/20/18 05:30 01/20/18 05:30 - Constitutional Appears: No Acute Distress - Head Exam Head Exam: NORMOCEPHALIC - Eye Exam Eye Exam: Normal appearance. absent: Scleral icterus - ENT Exam ENT Exam: Mucous Membranes Moist - Respiratory Exam Respiratory Exam: NORMAL BREATHING PATTERN. absent: Respiratory Distress - Cardiovascular Exam Cardiovascular Exam: +S1, +S2 - GI/Abdominal Exam GI & Abdominal Exam: Soft, Normal Bowel Sounds. absent: Guarding, Tenderness, Rebound - Extremities Exam Extremities Exam: absent: Calf Tenderness, Pedal Edema - Neurological Exam Neurological Exam: Alert, Awake, Oriented x3 - Skin Skin Exam: Dry, Warm Assessment and Plan - Assessment and Plan (Free Text) Assessment: Assessment: Pancreatic cancer with metastasis Abdominal pain Leukocytosis Diabetes mellitus Hypertension Plan: On soft diet can take Mrialax tid, monitor for diarrhea continue protonix 40 mg daily on Lovenox pain mgt Zofran PRN monitor LFTs, downtrended Seen and discussed with Dr. Merchant
--- NOTE | 2018-01-21 22:03 | DS ---
CHIEF COMPLAINT: Right-sided abdominal pain, nausea. HISTORY OF PRESENT ILLNESS: Ms. Hortensia Love is a 67-year-old female, my private office patient, with history of hypertension; diabetes mellitus type 2, uncontrolled; COPD; sleep apnea syndrome; colon resection; TIA; pancreatic cancer with metastasis, last chemotherapy was on 12/28/2017. Patient is very noncompliant for chemotherapy. Patient admitted to [facility] for intractable abdominal pain caused by possibly obstruction versus side effects of chemotherapy. Patient was admitted with CAT scan of the abdomen and pelvis. Gallbladder ultrasound is done, seen by Amelia Wright, GI nurse practitioner of Dr. Merchant. Patient was depressed. Called consult with Dr. Ingrid Selby. Patient was seen by Dr. Stephen also. Patient improved. Discussion done with Dr. Navarrete. Plan was to give chemotherapy inhouse, but due to insurance problem, the hospital cannot get approval, so chemotherapy was not given and discharged home today. Prescription of medications were given and is working to get approval of the patient's chemotherapy because patient do not want to go to [place]. We will try to arrange in [facility] if insurance will approve. PAST MEDICAL HISTORY: Hypertension; diabetes mellitus type 2; COPD; sleep apnea syndrome; colon resection; TIA; pancreatic cancer with metastasis, status post chemotherapy; history of hypertension; history of DVT; TIA; emphysema; history of drug abuse; hepatitis C positive; pancreatic cancer, stage III; history of appendectomy. FAMILY HISTORY: Father and mother, noncontributory. HABITS: Still smoking, history of alcohol abuse, but now quit; history of substance abuse, but now quit. ALLERGIES: PATIENT IS NOT ALLERGIC TO ANY MEDICATIONS. HOME MEDICATIONS: Reviewed by me. REVIEW OF SYSTEMS: Patient is seen and examined at bedside, looking comfortable. Boyfriend was sitting on the bedside also, still having epigastric pain. Bowel movements is okay, still getting nauseous. No bleeding. Appetite is appropriate. No fever, no chills. PHYSICAL EXAMINATION: VITAL SIGNS: Temperature is 98, pulse 86, respiratory rate 20, blood pressure 120/85, pulse oximetry 96. HEENT: Head: Normocephalic, atraumatic. Eyes: PERRLA. Extraocular muscles intact. Conjunctivae are clear. Nose patent. Mucous membranes are moist. NECK: Supple. No carotid bruit. No JVD, or thyromegaly. CHEST: Bilaterally symmetrical. HEART: S1 and S2 positive. LUNGS: Clear to auscultation. ABDOMEN: Soft. Bowel sounds are present. No organomegaly. EXTREMITIES: No edema. No cyanosis. NEUROLOGIC: Patient is awake and alert, moving all 4 extremities with no focal deficit. LABORATORY DATA: White blood cells 11.5, hemoglobin 11.3, hematocrit 35.7, and platelets 342. Sodium 141, potassium 3.5. BUN 9, creatinine 0.8. Glucose 107. ASSESSMENT AND PLAN: Ms. Hortensia Love is a 67-year-old lady with leukocytosis; anemia; hypokalemia, replaced; pancreatic cancer with metastasis; abdominal pain; leukocytosis; diabetes mellitus. Patient is on soft diet, can take MiraLax, continue proton pump inhibitor, was given Lovenox for deep venous thrombosis prophylaxis, pain management with Zofran. Monitor liver function test, it is trending down. Discussion done with patient's boyfriend and nursing staff, left message with patient' s Power of Kit [employer]. Gastrointestinal and deep venous thrombosis prophylaxis. We will follow up. Georgina Ferrara MD MTDD
== END 2018-01-20 17:44 | disposition home or self-care (01) | DRG 436 ==
LOC: ED 16:50 → ERH 22:00 → 3RNO 23:38
PROVIDERS: ADMIT Internal Medicine; ATTEND Internal Medicine
DX: C25.0 Malignant neoplasm of head of pancreas (principal); C78.7 Secondary malignant neoplasm of liver and intrahepatic bile duct; C78.02 Secondary malignant neoplasm of left lung; C78.01 Secondary malignant neoplasm of right lung; E11.43 Type 2 diabetes mellitus with diabetic autonomic (poly)neuropathy; K31.84 Gastroparesis; K81.9 Cholecystitis, unspecified; D64.9 Anemia, unspecified; J44.9 Chronic obstructive pulmonary disease, unspecified; I10 Essential (primary) hypertension; G47.33 Obstructive sleep apnea (adult) (pediatric); E87.6 Hypokalemia; K21.9 Gastro-esophageal reflux disease without esophagitis; B18.2 Chronic viral hepatitis C; E11.65 Type 2 diabetes mellitus with hyperglycemia; F32.9 Major depressive disorder, single episode, unspecified; F41.9 Anxiety disorder, unspecified; M79.7 Fibromyalgia; F17.200 Nicotine dependence, unspecified, uncomplicated; K59.09 Other constipation; Z91.19 Patient's noncompliance with other medical treatment and regimen; Z79.84 Long term (current) use of oral hypoglycemic drugs; Z86.73 Personal history of transient ischemic attack (TIA), and cerebral infarction without residual deficits

== ENCOUNTER 2018-02-05 15:02 | Inpatient (IN) | payer MEDICARE, OTHER ==
[2018-02-05 15:05] VITALS: BMI 26.9
[2018-02-05] MEDS ORDERED: Naloxone 0.4 mg/ml Inj (Adult) IV STA (15:31)
[2018-02-05] MEDS ORDERED: Sodium Chloride 0.9% 1,000 ML IV STA (15:31)
[2018-02-05] MEDS ORDERED: Naloxone 0.4 mg/ml Inj (Adult) ONE (15:37)
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
[2018-02-05 16:34] LABS: BASO # 0.02 K/mm3 (0.0-2.0); BASO % 0.1 % (0.0-3.0); EOS # 0.4 (0.0-0.7); EOS % 2.8 % (1.5-5.0); GRAN # 9.8 (1.4-6.5); GRAN % 69.9 % (50.0-68.0); HEMOGLOBIN 12.6 g/dL (12.0-16.0); LYMPH # 3.1 (1.2-3.4); LYMPH % 21.9 % (22.0-35.0); MEAN CORPUSCULAR HEMOGLOBIN 27.3 pg (25.0-35.0); MEAN CORPUSCULAR HGB CONC 32.1 g/dl (31.0-37.0); MEAN PLATELET VOLUME 9.2 fl (7.0-11.0); MONO # 0.8 (0.1-0.6); MONO % 5.3 % (1.0-6.0); RBC 4.61 10^6/uL (3.5-6.1); RED CELL DISTRIBUTION WIDTH 15.4 % (11.5-14.5); WHITE BLOOD COUNT 14.1 10^3/ul (4.5-11.0)
[2018-02-05 16:42] LABS: ALB/GLOB RATIO 0.8 (1.1-1.8); ALBUMIN 3.2 g/dL (3.0-4.8); ALT/SGPT 38 U/L (7-56); AST/SGOT 98 U/L (14-36); BLOOD UREA NITROGEN 7 mg/dL (7-21); CALCIUM 9.7 mg/dL (8.4-10.5); GFR AFRICAN-AMERICAN > 60; GFR NON-AFRICAN AMERICAN > 60; LIPASE 194 U/L (23-300)
[2018-02-05] MEDS ORDERED: Potassium Chloride 20 mEq ER Tab PO STA (16:44)
[2018-02-05] MEDS ORDERED: Dextrose 50% SYRINGE Inj (50 ml) IVP STA (16:48)
--- NOTE | 2018-02-05 16:50 | RAD ---
HISTORY: SOB COMPARISON: 01/13/2018 FINDINGS: LUNGS: No active pulmonary disease. PLEURA: No significant pleural effusion identified, no pneumothorax apparent. CARDIOVASCULAR: No radiographic findings to suggest acute or significant cardiovascular disease. Venous access catheter in stable, satisfactory position. OSSEOUS STRUCTURES: No significant abnormalities. VISUALIZED UPPER ABDOMEN: Normal. OTHER FINDINGS: None. IMPRESSION: No active disease. No significant interval change compared to the prior examination(s). Concordant results with the preliminary interpretation rendered by the emergency department physician procedure.
[2018-02-05 18:11] LABS: URINE BILIRUBIN NEGATIVE (NEGATIVE); URINE BLOOD NEGATIVE (NEGATIVE); URINE GLUCOSE (UA) NEGATIVE (NEGATIVE); URINE LEUKOCYTE ESTERASE NEGATIVE Leu/uL (NEGATIVE); URINE PROTEIN NEGATIVE mg/dL (<30 mg/dL); URINE UROBILINOGEN 0.2 E.U./dL (<1 E.U./dL)
[2018-02-05 18:14] LABS: URINE APPEARANCE CLEAR (CLEAR); URINE COLOR YELLOW (YELLOW)
[2018-02-05 18:52] LABS: BARBITURATES, UR NEGATIVE (NEGATIVE); BENZODIAZEPINES, UR POSITIVE (NEGATIVE); OPIATES, UR POSITIVE (NEGATIVE); PHENCYCLIDINE, UR NEGATIVE (NEGATIVE)
[2018-02-05] MEDS: Insulin Reg-LOW-Coverage SC SCH (23:44)
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
[2018-02-06] MEDS: Albuterol-Ipratrop 3 mg / 0.5 (3 ml) UD IH SCH ×4 (04:02→22:37)
[2018-02-06] MEDS: Insulin Reg-LOW-Coverage SC SCH ×4 (08:12→22:40)
--- NOTE | 2018-02-07 00:09 | CP.PCM.PN ---
Subjective - Date & Time of Evaluation Date of Evaluation: 02/07/18 Time of Evaluation: 00:04 - Subjective Subjective: Nurse calls . Complains of nausea, dizziness, lower abdominal pain, going to lower back, exacerbated by orange juice that she has had. FSBS 76 mg %, HR 87/min. There are orders for tylenol and zofran. Tylenol is not due untill 2 AM. Both tylenol and Zofran were ordered to be given. Came to see patient . Has above complaints. No chest pain, no sob. Tylenol and zofran have not helped for pain or nausea. Medical record was reviewed. 67 year old woman was admitted with lethargy. Has PMH of pancreatic cancer with metastasis,chronc pain,hepatitis C, fibromyalgia,DM II, GERD,COPD,TIA colon resection,appendectomy,biliary stent ,ERCP former smoker, ETOH abuser, cocaine user. Objective - Vital Signs/Intake and Output Vital Signs (last 24 hours): Temp Pulse Resp BP Pulse Ox 98.0 F 86 20 144/91 H 98 02/06/18 17:59 02/06/18 22:00 02/06/18 17:59 02/06/18 17:59 02/06/18 17:59 - Medications Medications: Current Medications Acetaminophen (Tylenol 325mg Tab) 650 mg PO Q6H PRN PRN Reason: Pain, Mild (1-3) Last Admin: 02/06/18 18:57 Dose: 650 mg Albuterol/Ipratropium (Duoneb 3 Mg/0.5 Mg (3 Ml) Ud) 3 ml IH [id number] [facility] Last Admin: 02/06/18 22:37 Dose: Not Given Dextrose (Dextrose 5% In Water 1000 Ml) 1,000 mls @ 100 mls/hr IV .Q10H [facility] Last Admin: 02/06/18 16:29 Dose: Not Given Insulin Human Regular (Humulin R Low) 0 units SC ACHS [facility] PRN Reason: Protocol Last Admin: 02/06/18 22:40 Dose: Not Given Ondansetron HCl (Zofran Inj) 4 mg IVP Q6 PRN PRN Reason: Nausea/Vomiting Last Admin: 02/06/18 10:24 Dose: 4 mg Pantoprazole Sodium (Protonix Inj) 40 mg IVP DAILY [facility] Last Admin: 02/06/18 10:20 Dose: 40 mg - Labs Labs: Last Vital Signs 3 Temp 98.8 F 02/07/18 00:01 Pulse 83 02/07/18 00:01 Resp 19 02/07/18 00:01 BP 131/73 02/07/18 00:01 Pulse Ox 98 02/07/18 00:01 - Constitutional Appears: Well, No Acute Distress - Head Exam Head Exam: ATRAUMATIC, NORMAL INSPECTION, NORMOCEPHALIC - Eye Exam Eye Exam: Normal appearance - ENT Exam ENT Exam: Normal External Ear Exam - Neck Exam Neck Exam: Normal Inspection - Respiratory Exam Respiratory Exam: Clear to Ausculation Bilateral, NORMAL BREATHING PATTERN - Cardiovascular Exam Cardiovascular Exam: REGULAR RHYTHM, +S1 (Normal.), +S2 (Normal.). absent: JVD - GI/Abdominal Exam GI & Abdominal Exam: Tenderness (Epigastric,LLQ, suprapubic, RLQ mild tenderness positive.), Normal Bowel Sounds, Rebound (?). absent: Bruit, Distended, Firm, Guarding - Rectal Exam Rectal Exam: Deferred - Exam Additional comments: Deferred. - Extremities Exam Extremities Exam: Normal Inspection - Back Exam Back Exam: NORMAL INSPECTION - Neurological Exam Neurological Exam: Alert, Oriented x3 - Psychiatric Exam Psychiatric exam: Normal Affect, Normal Mood - Skin Skin Exam: Normal Color Assessment and Plan - Assessment and Plan (Free Text) Assessment: Nausea. Diffuse abdominal pain. Pancreatic cancer history . Metastatic disease. Hepatits C. Chronic pain. Fibromyalgia. DM II . GERD. COPD. Plan: Morphine 4 mg IV x 1. Reglan [address] abdomen and pelvis without contrast. Discussed with PMD.
[2018-02-07] MEDS ORDERED: Morphine 4 mg/ml ISec IVP STA (01:26)
[2018-02-07] MEDS: Albuterol-Ipratrop 3 mg / 0.5 (3 ml) UD IH SCH ×3 (03:30→13:36)
[2018-02-07 06:20] LABS: HEMOGLOBIN 11.8 g/dL (12.0-16.0); MEAN CELL VOLUME 82.2 fl (80.0-105.0); MEAN CORPUSCULAR HGB CONC 32.9 g/dl (31.0-37.0); RBC 4.37 10^6/uL (3.5-6.1); RED CELL DISTRIBUTION WIDTH 15.2 % (11.5-14.5); WHITE BLOOD COUNT 13.4 10^3/ul (4.5-11.0)
[2018-02-07 06:44] LABS: IRON 49 ug/dL (45-180)
[2018-02-07 06:54] LABS: % IRON SATURATION 23 % (20-55); TOTAL IRON BINDING CAPACITY 214 ug/dL (265-497)
[2018-02-07 07:01] LABS: BLOOD UREA NITROGEN 5 mg/dL (7-21); CALCIUM 9.9 mg/dL (8.4-10.5); GFR AFRICAN-AMERICAN > 60; GFR NON-AFRICAN AMERICAN > 60; HDL CHOLESTEROL 23 mg/dL (29-60)
[2018-02-07 07:02] LABS: LDL CHOLESTEROL 129 mg/dL (0-129)
--- NOTE | 2018-02-07 08:01 | PN ---
DATE: 02/06/2018 PROGRESS NOTE SUBJECTIVE: Patient is a 67-year-old female. Patient is seen and examined on the bedside, looking comfortable. No nausea, vomiting, or diarrhea. No hematuria or hematochezia. No swelling of the legs. No chest pain. No palpitation. Confusion is better. Looks like dehydrated and looks like getting weak,fatigue, tired, sometime nauseousness. PHYSICAL EXAMINATION: VITAL SIGNS: Temperature 98.0, pulse 88, blood pressure 144/99, respiratory rate 20. HEENT: Head: Normocephalic and atraumatic. Eyes: PERRLA. Extraocular muscles intact. Conjunctivae clear. Nose patent. Mucous membrane moist. NECK: Supple. No carotid bruit. No JVD or thyromegaly. CHEST: Bilaterally symmetrical. HEART: S1 and S2 positive. LUNGS: Clear to auscultation. ABDOMEN: Soft. Bowel sounds present. No organomegaly. EXTREMITIES: No edema. No cyanosis. NEUROLOGIC: Patient is awake, alert. Moving all four extremities. No focal deficit. MEDICATIONS: Dextrose, albuterol, insulin, Protonix, Tylenol, and Zofran. LABORATORY DATA: White blood cell is 14.1, hemoglobin 12.6, hematocrit 39.2, platelet 383. Glucose 84. ASSESSMENT AND PLAN: Ms. Hortensia Love is a 67-year-old female with leukocytosis, hypokalemia replaced, hypoglycemia, abnormal liver function test, opioid positive , has pancreatic cancer with metastasis. She has had chronic pain syndrome or pain of malignancy, came with altered mental status and lethargy. Patient received Narcan. After that, she was arousable. History of hepatitis C with liver metastasis, lung nodules, fibromyalgia, diabetes mellitus type 2, gastroesophageal reflux disease, chronic obstructive pulmonary disease, transient ischemic attack, noncompliant, history of colon resection, appendectomy, adenocarcinoma of the pancreas, port placement, biliary stents. Endoscopic retrograde cholangiopancreatography failed cannulation; patient underwent percutaneous transhepatic cholangiography. Former smoker. History of cocaine and benzodiazepine abuse. Length of time discussion done with the patient's granddaughter and patient. PLAN: Continue present treatment. Repeat labs. We will follow up. Georgina Ferrara MD [facility]
[2018-02-07] MEDS: Insulin Reg-LOW-Coverage SC SCH ×4 (08:09→22:04)
[2018-02-07] MEDS: Morphine 30 mg SR Tab PO SCH ×2 (09:26→21:12)
[2018-02-07 12:21] LABS: FOLATE 8.9 ng/mL
--- NOTE | 2018-02-07 15:11 | CT ---
PROCEDURE: CT Abdomen and Pelvis without intravenous contrast HISTORY: diffuse abdominal pain. COMPARISON: 01/13/2018 TECHNIQUE: Without contrast.. Contrast Dose: Radiation dose: Total exam DLP = Total exam DLP = 898 mGy-cm. This CT exam was performed using one or more of the following dose reduction techniques: Automated exposure control, adjustment of the mA and/or kV according to patient size, and/or use of iterative reconstruction technique. FINDINGS: LOWER THORAX: Nodules are seen in the lung bases consistent with metastatic disease the largest measuring 17 mm LIVER: Multiple metastatic lesions are seen. GALLBLADDER AND BILE DUCTS: There is pneumobilia. There is a stent in the common duct. PANCREAS: Large pancreatic mass in the head of the pancreas SPLEEN: Unremarkable. ADRENALS: Unremarkable. No mass. KIDNEYS AND URETERS: Unremarkable. No hydronephrosis. No solid mass. VASCULATURE: Unremarkable. No aortic aneurysm. BOWEL: Unremarkable. No obstruction. No gross mural thickening. There is diverticulosis of the sigmoid colon. APPENDIX: Unremarkable. Normal appendix. PERITONEUM: Unremarkable. No free fluid. No free air. LYMPH NODES: Retroperitoneal adenopathy is seen BLADDER: Unremarkable. REPRODUCTIVE: Unremarkable. BONES: No acute fracture. OTHER FINDINGS: The report concurs with the preliminary [facility] report IMPRESSION: Pancreatic head mass with biliary stent in place. Metastatic disease to the lung and liver. Retroperitoneal adenopathy. No acute findings
--- NOTE | 2018-02-07 16:05 | CP.PCM.PN ---
<Francia Olivas - Last Filed: 02/07/18 16:01> Subjective - Date & Time of Evaluation Date of Evaluation: 02/07/18 Time of Evaluation: 11:30 - Subjective Subjective: Chief complaint: chronic pain 67 yr female private office patient w/ history of HTN, DM II, COPD, Hepatitis C, fibromylagia, anxiety, depression, h/o poly substance abuse, gastroparesis, Sleep apnea (doesn't tolerate Cpap), colon resection, TIA & Pancreatic Cancer w/ becky (last chemotherapy on early 12/2017). Pt admitted to [facility] for AMS related to taking morphine, fentanyl, and drinking ETOH frequently. She was found to have overdosed on opiates. Today, pt seen at bedside out of bed to chair. No distress noted. Pt denies any blurry vision, tinnitus, nausea, vomiting, fever chills, diarrhea, constipation, shortness of breath, chest pain , paresthesias, or urinary changes. Objective - Vital Signs/Intake and Output Vital Signs (last 24 hours): Temp Pulse Resp BP Pulse Ox 97.7 F 85 20 132/97 H 98 02/07/18 12:00 02/07/18 14:00 02/07/18 12:00 02/07/18 12:00 02/07/18 06:00 Intake and Output: 02/07/18 02/07/18 06:59 18:59 Intake Total 1860 1040 Output Total 0 Balance 1860 1040 - Medications Medications: Current Medications Acetaminophen (Tylenol 325mg Tab) 650 mg PO Q6H PRN PRN Reason: Pain, Mild (1-3) Last Admin: 02/06/18 18:57 Dose: 650 mg Albuterol/Ipratropium (Duoneb 3 Mg/0.5 Mg (3 Ml) Ud) 3 ml IH [id number] [facility] Last Admin: 02/07/18 13:36 Dose: Not Given Dextrose (Dextrose 5% In Water 1000 Ml) 1,000 mls @ 100 mls/hr IV .Q10H [facility] Last Admin: 02/07/18 13:59 Dose: 100 mls/hr Insulin Human Regular (Humulin R Low) 0 units SC ACHS [facility] PRN Reason: Protocol Last Admin: 02/07/18 11:56 Dose: Not Given Morphine Sulfate (Morphine Extended Release Tab) 60 mg PO Q12 [facility] Last Admin: 02/07/18 09:26 Dose: 60 mg Ondansetron HCl (Zofran Inj) 4 mg IVP Q6 PRN PRN Reason: Nausea/Vomiting Last Admin: 02/07/18 00:05 Dose: 4 mg Pantoprazole Sodium (Protonix Inj) 40 mg IVP DAILY [facility] Last Admin: 02/07/18 09:28 Dose: 40 mg - Labs Labs: 02/07/18 05:00 02/07/18 05:55 - Constitutional Appears: No Acute Distress, Older Than Stated Age, Chronically Ill - Head Exam Head Exam: ATRAUMATIC, NORMAL INSPECTION, NORMOCEPHALIC Additional comments: alopecia - Eye Exam Eye Exam: Normal appearance Additional comments: corrective glasses in place. - ENT Exam ENT Exam: Mucous Membranes Moist, Normal Exam - Neck Exam Neck Exam: Full ROM, Normal Inspection - Respiratory Exam Respiratory Exam: Clear to Ausculation Bilateral, NORMAL BREATHING PATTERN - Cardiovascular Exam Cardiovascular Exam: REGULAR RHYTHM, +S1, +S2 Additional comments: RCW portacath - GI/Abdominal Exam GI & Abdominal Exam: Soft, Normal Bowel Sounds. absent: Tenderness - Extremities Exam Extremities Exam: Full ROM, Normal Capillary Refill, Normal Inspection. absent : Joint Swelling, Pedal Edema - Back Exam Back Exam: NORMAL INSPECTION - Neurological Exam Neurological Exam: Alert, Awake, CN II-XII Intact, Normal Gait, Oriented x3 - Psychiatric Exam Psychiatric exam: Normal Affect, Normal Mood - Skin Skin Exam: Dry, Intact, Normal Color, Warm Assessment and Plan (1) Dehydration Status: Acute (2) Overdose Status: Acute (3) Diverticulitis Status: Acute (4) Dizziness Status: Acute (5) Hypokalemia Status: Acute (6) Leukocytosis Status: Acute (7) Malignant tumor head pancreas Status: Acute (8) Metastatic cancer Status: Acute - Assessment and Plan (Free Text) Plan: Labs ordered. Electrolytes corrected. Psych consulted for Stage 4 cancer w/ becky and recent opiate overdose. R CW port. PT & OT. GI/VTE prophylaxis. Pain management: Tylenol Consults: Psych - Dr. Ingrid Selby GI - Dr. Merchant Hemo/Onc - Dr. Navarrete / Dr. Parker Pulmo - Dr. Stephen Reviewed: CXR = WNL CT abd/pelvis = Pancreatic head mass w. biliary stent in place. metastatic disease to the lung liver. Retroperitoneal adenopathy [multiple pulmonary nodules consistent with metastatic disease periportal edema, biliary stent w pneumobia, mass in head of pancreas (consistent w. malignancy) w adjacent adenopathy, L renal cyst, small bowel is midly distended with fluid and air, dilated loop in the mid abdomen, partial R hemicolectomy, ileocolic anastomosis at hepatic flexure, moderate stool in colon, diverticulosis] <Georgina Ferrara - Last Filed: 02/07/18 17:40> Objective - Vital Signs/Intake and Output Vital Signs (last 24 hours): Temp Pulse Resp BP Pulse Ox 97.7 F 85 20 132/97 H 98 02/07/18 12:00 02/07/18 14:00 02/07/18 12:00 02/07/18 12:00 02/07/18 06:00 Intake and Output: 02/07/18 02/07/18 06:59 18:59 Intake Total 1860 1040 Output Total 0 Balance 1860 1040 - Medications Medications: Current Medications Acetaminophen (Tylenol 325mg Tab) 650 mg PO Q6H PRN PRN Reason: Pain, Mild (1-3) Last Admin: 02/06/18 18:57 Dose: 650 mg Albuterol/Ipratropium (Duoneb 3 Mg/0.5 Mg (3 Ml) Ud) 3 ml IH [id number] [facility] Last Admin: 02/07/18 13:36 Dose: Not Given Dextrose (Dextrose 5% In Water 1000 Ml) 1,000 mls @ 100 mls/hr IV .Q10H [facility] Last Admin: 02/07/18 13:59 Dose: 100 mls/hr Insulin Human Regular (Humulin R Low) 0 units SC ACHS [facility] PRN Reason: Protocol Last Admin: 02/07/18 11:56 Dose: Not Given Morphine Sulfate (Morphine Extended Release Tab) 60 mg PO Q12 [facility] Last Admin: 02/07/18 09:26 Dose: 60 mg Ondansetron HCl (Zofran Inj) 4 mg IVP Q6 PRN PRN Reason: Nausea/Vomiting Last Admin: 02/07/18 00:05 Dose: 4 mg Pantoprazole Sodium (Protonix Inj) 40 mg IVP DAILY [facility] Last Admin: 02/07/18 09:28 Dose: 40 mg - Labs Labs: 02/07/18 05:00 02/07/18 05:55 Assessment and Plan - Assessment and Plan (Free Text) Plan: 67 yr female private office patient w/ history of HTN, DM II, COPD, Hepatitis C, fibromylagia, anxiety, depression, h/o poly substance abuse, gastroparesis, Sleep apnea (doesn't tolerate Cpap), colon resection, TIA & Pancreatic Cancer w/ becky (last chemotherapy on early 12/2017). Pt admitted to [facility] for AMS related to taking morphine, fentanyl, and drinking ETOH frequently. She was found to have overdosed on opiates. Today, pt seen at bedside out of bed to chair. No distress noted. Pt denies any blurry vision, tinnitus, nausea, vomiting, fever chills, diarrhea, constipation, shortness of breath, chest pain , paresthesias, or urinary changes.pt is seen and examined at bed side , looking comfortable , agreed all above , chart , =meds and labs noted
[2018-02-07] MEDS ORDERED: Potassium Chloride 10 mEq ER Tab PO STA (20:09)
[2018-02-08] MEDS: Albuterol-Ipratrop 3 mg / 0.5 (3 ml) UD IH SCH ×5 (00:08→19:52)
--- NOTE | 2018-02-08 03:51 | CON ---
DATE: PULMONARY CONSULTATION REFERRING PHYSICIAN: Dr. Ferrara. REASON FOR CONSULTATION: Chronic lung disease, obstructive sleep apnea syndrome. HISTORY OF PRESENT ILLNESS: This is a 67-year-old female well known to me from office and previous admission, noncompliant with followup and medication, has a known history of metastatic pancreatic CA, been on chemotherapy, but noncompliant with Oncology appointment and chemotherapy, also has a history of chronic obstructive lung disease, hepatitis C, diabetes. She was found by the family altered and lethargic at home, received Narcan in the field with increase in her arousability. Presently, she is admitted lying in the bed, fully awake and alert. Patient denied taking any alcohol. According to the patient, she had been having a lot of abdominal pain, but according to family, she may have some alcohol abuse also. There is no fever. No chills, no nausea, no vomiting. Does have abdominal pain. No dysuria. No leg pain or leg swelling. PAST MEDICAL HISTORY: As per history present illness. ALLERGIES: NONE KNOWN. SOCIAL HISTORY: Former smoker, has a history of alcohol abuse in the past, did have a benzodiazepine and cocaine use. FAMILY HISTORY: Positive for hypertension and diabetes. MEDICATIONS: At present, she is on IV fluid D5 100 mL per hour, DuoNeb every 6 hours, metoprolol tartrate 25 mg daily, Lyrica 75 mg twice a day, morphine extended release 60 mg every 12 hours, Protonix 40 mg daily, Tylenol p.r.n. basis, Xanax 0.5 mg p.r.n., also Xanax 1 mg at bedtime, Zestril 10 mg was given daily, Zofran p.r.n. basis. REVIEW OF SYSTEMS: No headache, no rhinitis present. There is no cough. No nausea. Does have abdominal pain. No dysuria. No leg pain or leg swelling. PHYSICAL EXAMINATION: GENERAL: Lying in the bed, in no acute distress. VITAL SIGNS: Temperature is 98, heart rate 85, respiratory rate is 20, blood pressure 154/94, pulse ox 98% on room air. HEENT: Moist mucous membranes. Crowded airway. Mallampati score is IV. NECK: Supple. No JVD. LUNGS: Has a fair airflow with few rhonchi. HEART: S1 and S2. ABDOMEN: Positive bowel sounds. Positive epigastric tenderness with palpation. EXTREMITIES: There is no edema. NEUROLOGICAL: Awake, alert, follow simple commands. LABORATORY DATA: Shows hemoglobin 11.8, hematocrit is 35.9, WBC 13.4, platelet count is 365. Sodium 142, potassium 3.3, chloride 106, bicarbonate 28, BUN 5, creatinine 0.7, glucose is 139, calcium is 9.9. Iron is 49. Cholesterol is 175. Vitamin B12 614. Folate 8.9. Urinalysis is unremarkable. Toxicology shows urine opioid screen is positive, it has low alcohol detected. CT of the abdomen and pelvis done today, which shows pancreatic head mass with biliary stent in place, metastatic disease to the lung and liver, retroperitoneal lymphadenopathy. IMPRESSION AND PLAN: Metastatic pancreatic cancer involving the liver, chronic obstructive lung disease also involving the lungs, has diabetes, hypertension. She has sleep apnea syndrome, on and off constipation. Does have a history of substance abuse and alcohol abuse in the past. Patient has an intractable pain sometimes, especially with the pancreatic cancer, have no choice to give her some pain relief as needed. Of course, it is worrisome that she cannot control her medication. We will get Psychiatry to reevaluate her. Continue bronchodilator. Keep head at 45 degrees. Sleep apnea precaution. Need Oncology followup for further chemotherapy. I had a long discussion with the patient about opiates, pain control and responsibility. She expressed understanding. Thank you and we will follow with you. Linnea Stephen MD
[2018-02-08 06:53] LABS: BASO # 0.02 K/mm3 (0.0-2.0); BASO % 0.2 % (0.0-3.0); EOS # 0.4 (0.0-0.7); EOS % 3.2 % (1.5-5.0); GRAN # 9.81 (1.4-6.5); GRAN % 75.2 % (50.0-68.0); HEMOGLOBIN 11.4 g/dL (12.0-16.0); LYMPH # 1.7 (1.2-3.4); LYMPH % 13.1 % (22.0-35.0); MEAN CELL VOLUME 81.5 fl (80.0-105.0); MEAN CORPUSCULAR HEMOGLOBIN 26.8 pg (25.0-35.0); MEAN CORPUSCULAR HGB CONC 32.9 g/dl (31.0-37.0); MEAN PLATELET VOLUME 9.1 fl (7.0-11.0); MONO # 1.1 (0.1-0.6); MONO % 8.3 % (1.0-6.0); RBC 4.26 10^6/uL (3.5-6.1); RED CELL DISTRIBUTION WIDTH 15.4 % (11.5-14.5)
[2018-02-08 07:23] LABS: ALB/GLOB RATIO 0.8 (1.1-1.8); ALT/SGPT 47 U/L (7-56); AST/SGOT 80 U/L (14-36); BLOOD UREA NITROGEN 4 mg/dL (7-21); GFR AFRICAN-AMERICAN > 60; GFR NON-AFRICAN AMERICAN > 60
[2018-02-08] MEDS ORDERED: Potassium Chloride 20 mEq ER Tab PO ONE (08:53)
[2018-02-08] MEDS: Morphine 30 mg SR Tab PO SCH ×2 (09:25→21:44)
[2018-02-08] MEDS: Insulin Reg-LOW-Coverage SC SCH ×4 (09:33→22:50)
--- NOTE | 2018-02-08 15:07 | CON ---
DATE: HISTORY OF PRESENT ILLNESS: In short, the patient is a 67-year-old female with reported history of pancreatic cancer with chemotherapy. The patient was found unresponsive by her boyfriend, altered mental status and lethargic. The patient was taking morphine and fentanyl. The patient's family also reported that the patient was drinking alcohol on top of the pain medication, most likely it was causing the patient to have altered mental status. Psych consult was called for evaluation of mood symptoms. The patient was seen and examined. The patient is familiar to this technical writer from multiple consultation services from the medical side. The patient presented to be alert and oriented, pleasant, cooperative. The patient reported that would cause altered mental status was pain medication and fentanyl patch. The patient adamantly denied alcohol use. The patient reported that she is adjusting to the pancreatic cancer relatively well. At times, the patient is scared to be , but the patient is coping with that relatively well. The patient denied feeling depressed. The patient denied thoughts of hopelessness. The patient denied feeling of helplessness. The patient has future oriented plans. The patient said that her daughter as well as her boyfriend are very supportive. The patient reported that she lives independently and denied any psychotic symptoms. The patient reported to have fair sleep, appetite. The patient has nausea, but right now on medication the patient reported to feel better. Vital signs are stable. Temperature 98.1, pulse is 90, blood pressure 135/97, respirations 20, oxygen saturation is 97. Medications reviewed. Tylenol, DuoNeb, Xanax 1 mg at the nighttime scheduled, dextrose, Humulin, Zestril, Reglan, Lopressor, morphine, Zofran, Protonix, K-Dur, Pregabalin. Hematology reviewed. WBC cells 3.0, hemoglobin and hematocrit 11.4 and 34.7. Chemistry reviewed. AST and ALT, AST is 80, ALT is 47. Urine within normal limits. Toxicology: Opioids positive as well as benzodiazepines positive, but the patient was prescribed those medication. MENTAL STATUS EXAMINATION: The patient presented to be alert and oriented, pleasant, cooperative, intermittent eye contact. Speech was normal rate, tone, quality and quantity, but mildly underproductive. Mood described, "I am adjusting to everything relatively well." Affect was reactive. Mood congruent. Thought process was coherent and goal directed. Thought content, the patient denied visual, auditory or tactile hallucinations. Denied paranoid ideation. The patient denied thoughts of harming herself or others. Denied intent or plan. Insight and judgment seems to be fair. Impulses are well controlled. IMPRESSION: Altered mental status, most likely was related to combination of the factors such as pain medication and fentanyl. In regards of the mood symptoms, the patient is adjusting to the diagnosis of pancreatic cancer relatively well. The patient is aware of her diagnosis and prognosis. The patient adamantly denied thoughts of harming herself or others. Denied intent or plan. Rule out adjustment disorder with the depressed and anxious mood. Rule out mood disorder due to general medical condition. PLAN: Continue current management. Continue current medication. The patient reported that she is feeling fine. The patient does not want to be seen by psychiatrist because "I am just fine, everything seems to be okay and you should not be worried about me, I am just all right." The patient reported that her family is supportive. Her daughter [id number] will be taking care of her medication and she will help her to adjust the medications and distribute medication on daily basis. The patient's boyfriend seems to be supportive and the patient reported that he treats her very nicely. Besides that, there is no change as the patient reported. Anxiety is under control. Depression is under control. The patient has fair sleep. Appetite is decreased, maybe because of the chemotherapy as well as medical issues. We will sign off. The patient not in any imminent danger to self or others. Should you have any questions give me a call back. Thank you very much for letting me participate in care of your patient. Ingrid Selby MD
[2018-02-08] MEDS: Potassium Chloride 20 mEq ER Tab PO SCH (17:25)
--- NOTE | 2018-02-08 19:27 | CARD ---
APPROVED REPORT EKG Measurement Heart [id number] <Conclusion> Normal sinus rhythm Normal ECG
--- NOTE | 2018-02-08 23:23 | PN ---
DATE: SUBJECTIVE: Patient is a 67-year-old female. The patient was seen and examined on the bedside, looking comfortable, siting on the chair. According to patient, last night, she has good sleep. No new episode happened. No fever, no chills. Still sometimes getting shortness of breath when she is going to the bathroom. No headache, no dizziness. PHYSICAL EXAMINATION: VITAL SIGNS: Temperature 97.9, pulse 70, blood pressure 140/93, respiratory rate 20. HEENT: Head: Normocephalic and atraumatic. Eyes: PERRLA. Extraocular muscles intact. Conjunctivae clear. Nose: Patent. Mucous membrane moist. NECK: Supple. No carotid bruit, JVD, or thyromegaly. CHEST: Bilaterally symmetrical. HEART: S1, S2 positive. LUNGS: Clear to auscultation. ABDOMEN: Soft. Bowel sounds present. No organomegaly. EXTREMITIES: No edema. No cyanosis. NEUROLOGIC: Patient is awake, alert. Moving all four extremities. No focal deficit. MEDICATIONS: Dextrose, albuterol, insulin, potassium, Lopressor, Lyrica, morphine, Protonix, Reglan, Tylenol, Xanax, Zestril. LABORATORY DATA: White blood cells 13, hemoglobin 11.4, hematocrit 34.7, platelets 333. Sodium 139, potassium 3.2, BUN 4, creatinine 0.7. ASSESSMENT AND PLAN: Ms. Hortensia Love is a 67-year-old lady with leukocytosis; anemia; hypokalemia, replaced , 20 mEq two runs; diabetes mellitus; abnormal liver function test; history of hepatitis C positive; history of pancreatic cancer with metastasis to the lung, liver and head; end-stage with metastasis. Patient has history of chronic obstructive pulmonary disease, asthma. Patient was depressed because of her medical condition and consulted with Dr. Ingrid Selby, psychiatrist; reviewed Dr. Selby's notes. CAT scan of the abdomen and pelvis done, reviewed by me. Pancreatic head mass with biliary stent in place. Metastatic disease to the lung and liver due to peritoneal adenopathy; history of noncompliance, patient is very noncompliant in getting the chemotherapy; pain of malignancy. When the patient came, she was overdosed with pain medications. Now, we are not giving Duragesic patch, sleep apnea syndrome, on and off constipation, history of substance abuse, alcohol abuse in the past, and had smoking. Continue bronchodilators, sleep apnea precautions. Appreciating Dr. Stephen's input. He had long discussion done with the patient about opiates use and pain control and responsibility and patient understood that. We will follow up. Georgina Ferrara MD MTDD
--- NOTE | 2018-02-09 00:07 | PN ---
DATE: REFERRING PHYSICIAN: Georgina Ferrara MD SUBJECTIVE: She is sitting at the side of the bed. Night was unremarkable. Feels little better. Short of breath with exertion. No chest pain. No nausea. Does have abdominal pain. No leg pain. No leg swelling. PHYSICAL EXAMINATION: GENERAL: In no acute distress. VITAL SIGNS: Temperature 98, heart rate 76, respiratory rate 16, blood pressure 156/100, pulse ox 97% on room air. HEENT: Moist mucous membrane. Crowded airway. Mallampati score is 4. NECK: Supple. No JVD. LUNGS: Fair airflow with few rhonchi. HEART: S1 and S2. ABDOMEN: Soft, nontender. No organomegaly. EXTREMITIES: There is no edema. NEUROLOGICAL: Awake, alert, follows simple commands. MEDICATIONS: She is on IV fluid D5 100 mL per hour, DuoNeb every 6 hours, potassium 20 mEq twice a day, metoprolol tartrate 25 mg daily, Lyrica 75 mg twice a day, morphine extended release 60 mg every 12 hours, Protonix 40 mg a.c.b., Reglan 10 mg every 4 hours p.r.n. for nausea, Tylenol p.r.n., Xanax 0.5 mg p.r.n., also Xanax 1 mg at bedtime, Zestril 10 mg daily, Zofran p.r.n. basis. LABORATORY DATA: Hemoglobin 11.4, hematocrit 34.7, WBC 13, platelets 333. Sodium 139, potassium 3.2, chloride 103, bicarbonate 28, BUN 4, creatinine 0.7, glucose 82, calcium 9, AST 80, ALT 326, alkaline phosphatase 326, albumin 3. IMPRESSION AND PLAN: Metastatic pancreatic cancer involving liver and lungs. Also has chronic obstructive lung disease, diabetes, hypertension, sleep apnea syndrome. History of substance abuse and alcohol abuse in the past. Seen by Psychiatry. I had long discussion with the patient about pain medication, and risk and benefit ratio. She expressed understanding. Also seen by Dr. Selby. Continue nebulizer treatment. Thank you and we will follow with you. Linnea Stephen MD [facility] # [id number]
[2018-02-09] MEDS: Albuterol-Ipratrop 3 mg / 0.5 (3 ml) UD IH SCH ×4 (01:34→20:14)
[2018-02-09] MEDS: Insulin Reg-LOW-Coverage SC SCH ×4 (07:53→22:25)
[2018-02-09] MEDS: Potassium Chloride 20 mEq ER Tab PO SCH ×2 (10:13→17:54)
[2018-02-09] MEDS: Morphine 30 mg SR Tab PO SCH ×2 (10:14→21:41)
[2018-02-09] MEDS: Pantoprazole 40 mg EC Tab PO SCH (10:15)
[2018-02-09 14:10] LABS: ALB/GLOB RATIO 0.8 (1.1-1.8); ALBUMIN 3.1 g/dL (3.0-4.8); ALT/SGPT 29 U/L (7-56); AST/SGOT 43 U/L (14-36); BLOOD UREA NITROGEN 5 mg/dL (7-21); CALCIUM 9.4 mg/dL (8.4-10.5); GFR AFRICAN-AMERICAN > 60; GFR NON-AFRICAN AMERICAN > 60
--- NOTE | 2018-02-09 14:18 | CP.PCM.PN ---
<Francia Olivas - Last Filed: 02/09/18 14:15> Subjective - Date & Time of Evaluation Date of Evaluation: 02/09/18 Time of Evaluation: 11:30 - Subjective Subjective: Chief complaint: Dehydration 67 yr female private office patient w/ history of HTN, DM II, COPD, Hepatitis C, fibromylagia, anxiety, depression, h/o poly substance abuse, gastroparesis, Sleep apnea (doesn't tolerate Cpap), colon resection, TIA & Pancreatic Cancer w/ becky (last chemotherapy on early 12/2017). Pt admitted to [facility] for AMS related to taking morphine, fentanyl, and drinking ETOH frequently. She was found to have overdosed on opiates. Today, pt seen at bedside. No distress noted. Pt denies any blurry vision, tinnitus, nausea, vomiting, fever chills, diarrhea, constipation, shortness of breath, chest pain, paresthesias, or urinary changes. Objective - Vital Signs/Intake and Output Vital Signs (last 24 hours): Temp Pulse Resp BP Pulse Ox 97.6 F 79 20 119/78 98 02/09/18 08:06 02/09/18 08:06 02/09/18 08:06 02/09/18 08:06 02/09/18 08:06 Intake and Output: 02/09/18 02/09/18 06:59 18:59 Intake Total 1680 Balance 1680 - Medications Medications: Current Medications Acetaminophen (Tylenol 325mg Tab) 650 mg PO Q6H PRN PRN Reason: Pain, Mild (1-3) Last Admin: 02/07/18 19:05 Dose: 650 mg Albuterol/Ipratropium (Duoneb 3 Mg/0.5 Mg (3 Ml) Ud) 3 ml IH [id number] BRITTNEY Last Admin: 02/09/18 13:32 Dose: Not Given Alprazolam (Xanax) 1 mg PO HS BRITTNEY PRN Reason: Protocol Last Admin: 02/08/18 23:30 Dose: 1 mg Alprazolam (Xanax) 0.5 mg PO DAILY PRN; Protocol PRN Reason: Anxiety Dextrose (Dextrose 5% In Water 1000 Ml) 1,000 mls @ 100 mls/hr IV .Q10H [facility] Last Admin: 02/09/18 10:12 Dose: 100 mls/hr Insulin Human Regular (Humulin R Low) 0 units SC ACHS [facility] PRN Reason: Protocol Last Admin: 02/09/18 12:35 Dose: 1 units Lisinopril (Zestril) 10 mg PO DAILY [facility] Last Admin: 02/09/18 10:15 Dose: 10 mg Metoclopramide HCl (Reglan) 10 mg IVP Q4 PRN PRN Reason: Nausea/Vomiting Last Admin: 02/08/18 15:17 Dose: 10 mg Metoprolol Tartrate (Lopressor) 25 mg PO DAILY [facility] Last Admin: 02/09/18 10:13 Dose: 25 mg Morphine Sulfate (Morphine Extended Release Tab) 60 mg PO Q12 [facility] Last Admin: 02/09/18 10:14 Dose: 60 mg Ondansetron HCl (Zofran Inj) 4 mg IVP Q6 PRN PRN Reason: Nausea/Vomiting Last Admin: 02/09/18 03:54 Dose: 4 mg Pantoprazole Sodium (Protonix Ec Tab) 40 mg PO ACB [facility] Last Admin: 02/09/18 10:15 Dose: 40 mg Potassium Chloride (K-Dur 20 Meq Er Tab) 20 meq PO BID [facility] Last Admin: 02/09/18 10:13 Dose: 20 meq Pregabalin (Lyrica) 75 mg PO BID [facility] Last Admin: 02/09/18 10:14 Dose: 75 mg - Labs Labs: 02/08/18 06:32 02/09/18 13:30 - Constitutional Appears: No Acute Distress, Chronically Ill - Head Exam Head Exam: ATRAUMATIC, NORMAL INSPECTION, NORMOCEPHALIC Additional comments: alopecia - Eye Exam Eye Exam: Normal appearance Pupil Exam: NORMAL ACCOMODATION Additional comments: wearing corrective eyeglasses. - ENT Exam ENT Exam: Mucous Membranes Moist, Normal Exam - Neck Exam Neck Exam: Normal Inspection - Respiratory Exam Respiratory Exam: Clear to Ausculation Bilateral, NORMAL BREATHING PATTERN - Cardiovascular Exam Cardiovascular Exam: REGULAR RHYTHM, +S1, +S2 Additional comments: RCW portacath - GI/Abdominal Exam GI & Abdominal Exam: Soft, Normal Bowel Sounds. absent: Tenderness - Back Exam Back Exam: NORMAL INSPECTION - Neurological Exam Neurological Exam: Alert, Awake, CN II-XII Intact, Normal Gait, Oriented x3 - Psychiatric Exam Psychiatric exam: Normal Affect, Normal Mood - Skin Skin Exam: Dry, Intact, Normal Color, Warm Assessment and Plan (1) Dehydration Status: Acute (2) Overdose Status: Acute (3) Diverticulitis Status: Acute (4) Dizziness Status: Acute (5) Hypokalemia Status: Acute (6) Leukocytosis Status: Acute (7) Malignant tumor head pancreas Status: Acute (8) Metastatic cancer Status: Acute - Assessment and Plan (Free Text) Plan: IVF hydration. Labs ordered. Electrolytes corrected. Pain medications adjustment per Hemo/Oncology. R CW port. PT & OT. GI/VTE prophylaxis. Pain management: Tylenol, morphine 60mg ER q 12h Consults: Psych - Dr. Ingrid Selby GI - Dr. Merchant Hemo/Onc - Dr. Navarrete / Dr. Parker Pulmo - Dr. Stephen Reviewed: ECG = NSR CXR = WNL CT abd/pelvis = Pancreatic head mass w. biliary stent in place. metastatic disease to the lung liver. Retroperitoneal adenopathy [multiple pulmonary nodules consistent with metastatic disease periportal edema, biliary stent w pneumobia, mass in head of pancreas (consistent w. malignancy) w adjacent adenopathy, L renal cyst, small bowel is midly distended with fluid and air, dilated loop in the mid abdomen, partial R hemicolectomy, ileocolic anastomosis at hepatic flexure, moderate stool in colon, diverticulosis] <Georgina Ferrara - Last Filed: 02/09/18 22:49> Objective - Vital Signs/Intake and Output Vital Signs (last 24 hours): Temp Pulse Resp BP Pulse Ox 97.6 F 78 20 135/89 99 02/09/18 14:00 02/09/18 14:00 02/09/18 14:00 02/09/18 14:00 02/09/18 14:00 - Medications Medications: Current Medications Acetaminophen (Tylenol 325mg Tab) 650 mg PO Q6H PRN PRN Reason: Pain, Mild (1-3) Last Admin: 02/07/18 19:05 Dose: 650 mg Albuterol/Ipratropium (Duoneb 3 Mg/0.5 Mg (3 Ml) Ud) 3 ml IH [id number] BRITTNEY Last Admin: 02/09/18 20:14 Dose: Not Given Alprazolam (Xanax) 1 mg PO HS [facility] PRN Reason: Protocol Last Admin: 02/09/18 21:41 Dose: 1 mg Alprazolam (Xanax) 0.5 mg PO DAILY PRN; Protocol PRN Reason: Anxiety Dextrose (Dextrose 5% In Water 1000 Ml) 1,000 mls @ 100 mls/hr IV .Q10H [facility] Last Admin: 02/09/18 21:56 Dose: 100 mls/hr Insulin Human Regular (Humulin R Low) 0 units SC ACHS [facility] PRN Reason: Protocol Last Admin: 02/09/18 22:25 Dose: Not Given Lisinopril (Zestril) 10 mg PO DAILY [facility] Last Admin: 02/09/18 10:15 Dose: 10 mg Metoclopramide HCl (Reglan) 10 mg IVP Q4 PRN PRN Reason: Nausea/Vomiting Last Admin: 02/08/18 15:17 Dose: 10 mg Metoprolol Tartrate (Lopressor) 25 mg PO DAILY [facility] Last Admin: 02/09/18 10:13 Dose: 25 mg Morphine Sulfate (Morphine Extended Release Tab) 60 mg PO Q12 [facility] Last Admin: 02/09/18 21:41 Dose: 60 mg Ondansetron HCl (Zofran Inj) 4 mg IVP Q6 PRN PRN Reason: Nausea/Vomiting Last Admin: 02/09/18 03:54 Dose: 4 mg Pantoprazole Sodium (Protonix Ec Tab) 40 mg PO ACB [facility] Last Admin: 02/09/18 10:15 Dose: 40 mg Potassium Chloride (K-Dur 20 Meq Er Tab) 20 meq PO BID [facility] Last Admin: 02/09/18 17:54 Dose: 20 meq Pregabalin (Lyrica) 75 mg PO BID [facility] Last Admin: 02/09/18 17:54 Dose: 75 mg - Labs Labs: 02/08/18 06:32 02/09/18 13:30 Assessment and Plan - Assessment and Plan (Free Text) Plan: 67 yr female private office patient w/ history of HTN, DM II, COPD, Hepatitis C, fibromylagia, anxiety, depression, h/o poly substance abuse, gastroparesis, Sleep apnea (doesn't tolerate Cpap), colon resection, TIA & Pancreatic Cancer w/ becky (last chemotherapy on early 12/2017). Pt admitted to [facility] for AMS related to taking morphine, fentanyl, and drinking ETOH frequently. She was found to have overdosed on opiates. Today, pt seen at bedside. No distress noted. Pt denies any blurry vision, tinnitus, nausea, vomiting, fever chills, diarrhea, constipation, shortness of breath, chest pain, paresthesias, or urinary changes. pt is seen and examined at bed side ,looking comfortable , agreed all above , chart , meds and labs noted , will f/u
--- NOTE | 2018-02-09 15:28 | PN ---
DATE: 02/09/2018 PULMONARY PROGRESS NOTE REFERRING PHYSICIAN: Georgina Ferrara MD. SUBJECTIVE: She is lying in the bed, head at 45 degrees. Mild nausea. No shortness of breath. No dysuria. No leg pain or leg swelling. OBJECTIVE: GENERAL: In no acute distress. VITAL SIGNS: Temp is 98, heart rate is 79, respiratory rate is 20, blood pressure 118/78, pulse ox 98% on room air. HEENT: Moist mucous membrane. Crowded airway. NECK: Supple. No JVD. LUNGS: Have a fair airflow with few rhonchi. HEART: S1 and S2. ABDOMEN: Positive bowel sounds. Epigastric tenderness. EXTREMITIES: There is no edema. NEUROLOGICAL: Awake and alert. Follows simple command. LABORATORY DATA: Reviewed. Sodium 141, potassium 4.5, chloride 103, bicarbonate 25, BUN 5, creatinine 0.6, glucose 108, calcium 9.4, AST 43, ALT 29, alk phos is 322, albumin 3.1. MEDICATIONS: She is on IV fluid D5 100 mL per hour, DuoNeb every 6 hours [id number], insulin coverage, potassium 20 mEq daily, metoprolol tartrate 25 mg daily, Lyrica 75 mg twice a day, morphine extended release 60 mg every 12 hours, Protonix 40 mg a.c.b., Reglan 10 mg every 4 hours p.r.n., Tylenol p.r.n., Xanax 0.5 mg daily p.r.n. and 1 mg at bedtime on schedule, Zestril 10 mg daily, Zofran p.r.n. basis. IMPRESSION AND PLAN: Metastatic pancreatic cancer involving the liver and lung, received few cycles of chemotherapy, noncompliant, does not follow up; has obstructive lung disease; suspected sleep apnea syndrome; extensive metastatic disease to the lung. Originally admitted with drug overdose. Seen by Psychiatry. Plan is being made that the patient's family will control the pain medication and given their instructions. Out of bed to chair. Sleep apnea precaution. Careful with sedation. She is refusing to use her continuous positive airway pressure. Thank you and we will follow with you. Linnea Stephen MD
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
[2018-02-10] MEDS: Albuterol-Ipratrop 3 mg / 0.5 (3 ml) UD IH SCH ×4 (01:34→20:10)
[2018-02-10] MEDS: Pantoprazole 40 mg EC Tab PO SCH (10:33)
[2018-02-10] MEDS: Morphine 30 mg SR Tab PO SCH ×2 (10:34→22:26)
[2018-02-10] MEDS: Insulin Reg-LOW-Coverage SC SCH ×4 (10:34→22:39)
[2018-02-10] MEDS: Potassium Chloride 20 mEq ER Tab PO SCH (10:34)
--- NOTE | 2018-02-10 16:44 | PN ---
DATE: 02/10/2018 PULMONARY PROGRESS NOTE REFERRING PHYSICIAN: Dr. Ferrara. SUBJECTIVE: She is lying in the bed, night was unremarkable, feels okay. No headache, no rhinitis, no nausea, mild abdominal pain, no dysuria, no leg pain or leg swelling. OBJECTIVE: GENERAL: No acute distress. VITAL SIGNS: Temperature is 98, heart rate 68, respiratory rate is 20, blood pressure 130/82, pulse ox 98% on room air. HEENT: Moist mucous membrane. Crowded airway. NECK: Supple. No JVD. LUNGS: Fair airflow with few rhonchi. HEART: S1 and S2. ABDOMEN: Positive bowel sound, epigastric tenderness. EXTREMITIES: There is no edema. NEUROLOGICAL: Awake, alert, follows simple commands. MEDICATIONS: She is on IV fluid D5 mL per hour, albuterol and Atrovent nebulizer every 6 hours [id number], insulin coverage, potassium 20 mEq twice a day, metoprolol tartrate 25 mg daily, Lyrica 75 mg twice a day, morphine extended release 60 mg every 12 hour, Protonix 40 mg a.c.b., Reglan 10 mg every 4 hour p.r.n., Tylenol p.r.n., Xanax 0.5 mg daily p.r.n. and Xanax 1 mg at bedtime, Zestril 10 mg daily, Zofran p.r.n. basis. LABORATORY DATA: Shows blood sugar this morning 115. IMPRESSION AND PLAN: Metastatic pancreatic cancer involving the liver, lung , noncompliant with the chemotherapy, could not follow up with Oncology, chronic lung disease, suspected sleep apnea syndrome, extensive metastatic disease to the lung. Case discussed with Dr. Ferrara today. Second opinion Oncology has been called. The patient needs to maintain all chemotherapy. Pulmonary point of view, she is doing okay. Other issue is her pain medication. She genuinely has a lot of pain and history of anxiety and depression. Needs both benzodiazepine and opiates. So, we will need to get family involved, who can control her medication and watch her doses of medication. The patient seen by Psychiatry. Thank you and we will follow with you. Linnea Stephen MD [facility] # [id number]
[2018-02-11] MEDS: Albuterol-Ipratrop 3 mg / 0.5 (3 ml) UD IH SCH ×4 (01:25→22:00)
--- NOTE | 2018-02-11 02:09 | PN ---
DATE: SUBJECTIVE: Patient is a 67-year-old female. Patient is seen and examined at the bedside, looking comfortable. No nausea, vomiting, or diarrhea. Pain is getting under control. No dysuria. No swelling of the legs. Mild abdominal pain. No fever. No chills. Night was unremarkable. REVIEW OF SYSTEMS: A 12-point review of system was within normal limits except one. PHYSICAL EXAMINATION: VITAL SIGNS: Temperature 98, heart rate 68, respiratory rate 20, blood pressure 130/82, pulse oximetry 98% on room air. HEENT: Head: Normocephalic, atraumatic. Eyes: PERRLA. Extraocular muscles intact. Conjunctivae clear. Nose: Patent. NECK: Supple. No carotid bruit, JVD, or thyromegaly. CHEST: Bilaterally symmetrical. HEART: S1 and S2 positive. LUNGS: Fair airflow with few rhonchi. ABDOMEN: Positive bowel sounds. Epigastric tenderness. EXTREMITIES: No edema. No cyanosis. NEUROLOGIC: Patient is awake, alert. Follows simple commands. MEDICATIONS: IV fluid, albuterol, Atrovent, potassium, metoprolol, Lyrica, morphine extended release 60 mg every 12 hours, Protonix, Reglan, Tylenol, Xanax, Zestril, Zofran. LABORATORY DATA: We do not have recent labs today, but I reviewed old labs. Sugar 115. ASSESSMENT AND PLAN: Ms. Hortensia Love is a 67-year-old female with metastatic pancreatic cancer involving the liver, lungs, noncompliant with chemotherapy. Because of her transportation problem , cannot follow up with Oncology for chemotherapy. Chronic obstructive pulmonary disease, suspected sleep apnea syndrome, extensive metastatic disease to the lungs. Discussion done with Dr. Stephen, and for second opinion Dr. nation consult called. Waiting for the input. Gastrointestinal and deep vein thrombosis prophylaxis. Shortness of breath is getting better. Patient has had metastasis in the bones, also she has pain in the bones. Anxiety and depression. Needs both benzodiazepine and opiates. So, we will need to get family involved especially her power of employee benefits attorney, [id number]. So, they can control pain medication and watch her doses of medication. Patient is under the care of psychiatrist, oncologist, and measurement operator. History of chronic obstructive pulmonary disease and asthma. Repeat labs. We will follow up. Georgina Ferrara MD [facility] # [id number] SHANTAL
[2018-02-11] MEDS: Pantoprazole 40 mg EC Tab PO SCH (08:29)
[2018-02-11] MEDS: Insulin Reg-LOW-Coverage SC SCH ×4 (08:36→21:40)
[2018-02-11 08:44] LABS: MEAN CELL VOLUME 82.2 fl (80.0-105.0); MEAN CORPUSCULAR HEMOGLOBIN 26.3 pg (25.0-35.0); MEAN PLATELET VOLUME 8.9 fl (7.0-11.0); RBC 4.56 10^6/uL (3.5-6.1); RED CELL DISTRIBUTION WIDTH 15.5 % (11.5-14.5); WHITE BLOOD COUNT 11.8 10^3/ul (4.5-11.0)
[2018-02-11 08:54] LABS: BLOOD UREA NITROGEN 5 mg/dL (7-21); CALCIUM 9.6 mg/dL (8.4-10.5); GFR AFRICAN-AMERICAN > 60; GFR NON-AFRICAN AMERICAN > 60
[2018-02-11] MEDS: Potassium Chloride 20 mEq ER Tab PO SCH ×2 (10:28→17:55)
[2018-02-11] MEDS: Morphine 30 mg SR Tab PO SCH ×3 (10:38→21:19)
--- NOTE | 2018-02-11 15:48 | CP.PCM.PN ---
<Francia Olivas - Last Filed: 02/11/18 15:45> Subjective - Date & Time of Evaluation Date of Evaluation: 02/11/18 Time of Evaluation: 09:45 - Subjective Subjective: Chief complaint: Portacath, Not patent 67 yr female private office patient w/ history of HTN, DM II, COPD, Hepatitis C, fibromylagia, anxiety, depression, h/o poly substance abuse, gastroparesis, Sleep apnea (doesn't tolerate Cpap), colon resection, TIA & Pancreatic Cancer w/ becky (last chemotherapy on early 12/2017). Pt admitted to [facility] for AMS related to taking morphine, fentanyl, and drinking ETOH frequently. She was found to have overdosed on opiates. Today, pt seen at bedside. No distress noted. Pt denies any blurry vision, tinnitus, nausea, vomiting, fever chills, diarrhea, constipation, shortness of breath, chest pain, paresthesias, or urinary changes Objective - Vital Signs/Intake and Output Vital Signs (last 24 hours): Temp Pulse Resp BP Pulse Ox 97.9 F 54 L 20 120/74 96 02/11/18 14:00 02/11/18 14:00 02/11/18 14:00 02/11/18 14:00 02/11/18 14:00 Intake and Output: 02/11/18 02/11/18 06:59 18:59 Intake Total 1920 600 Balance 1920 600 - Medications Medications: Current Medications Acetaminophen (Tylenol 325mg Tab) 650 mg PO Q6H PRN PRN Reason: Pain, Mild (1-3) Last Admin: 02/10/18 06:09 Dose: 650 mg Albuterol/Ipratropium (Duoneb 3 Mg/0.5 Mg (3 Ml) Ud) 3 ml IH [id number] [facility] Last Admin: 02/11/18 14:43 Dose: Not Given Alprazolam (Xanax) 1 mg PO HS [facility] PRN Reason: Protocol Last Admin: 02/10/18 22:26 Dose: 1 mg Alprazolam (Xanax) 0.5 mg PO DAILY PRN; Protocol PRN Reason: Anxiety Last Admin: 02/11/18 10:29 Dose: 0.5 mg Dextrose (Dextrose 5% In Water 1000 Ml) 1,000 mls @ 100 mls/hr IV .Q10H [facility] Last Admin: 02/11/18 11:26 Dose: 100 mls/hr Insulin Human Regular (Humulin R Low) 0 units SC ACHS [facility] PRN Reason: Protocol Last Admin: 02/11/18 13:22 Dose: Not Given Lisinopril (Zestril) 10 mg PO DAILY [facility] Last Admin: 02/11/18 10:29 Dose: 10 mg Metoclopramide HCl (Reglan) 10 mg IVP Q4 PRN PRN Reason: Nausea/Vomiting Last Admin: 02/11/18 11:26 Dose: 10 mg Metoprolol Tartrate (Lopressor) 25 mg PO DAILY [facility] Last Admin: 02/11/18 10:28 Dose: 25 mg Morphine Sulfate (Morphine Extended Release Tab) 60 mg PO Q12 [facility] Last Admin: 02/11/18 10:39 Dose: 60 mg Ondansetron HCl (Zofran Inj) 4 mg IVP Q6 PRN PRN Reason: Nausea/Vomiting Last Admin: 02/11/18 07:04 Dose: 4 mg Pantoprazole Sodium (Protonix Ec Tab) 40 mg PO ACB [facility] Last Admin: 02/11/18 08:29 Dose: 40 mg Polyethylene Glycol (Miralax) 17 gm PO BID PRN PRN Reason: Constipation Potassium Chloride (K-Dur 20 Meq Er Tab) 20 meq PO BID [facility] Last Admin: 02/11/18 10:28 Dose: 20 meq Pregabalin (Lyrica) 75 mg PO BID [facility] Last Admin: 02/11/18 10:28 Dose: 75 mg - Labs Labs: 02/11/18 08:30 02/11/18 08:30 - Constitutional Appears: Well - Head Exam Head Exam: ATRAUMATIC, NORMAL INSPECTION, NORMOCEPHALIC Additional comments: alopecia - Eye Exam Eye Exam: Normal appearance Additional comments: wearing corrective eyeglasses. - ENT Exam ENT Exam: Mucous Membranes Moist, Normal Exam - Neck Exam Neck Exam: Full ROM, Normal Inspection. absent: Lymphadenopathy - Respiratory Exam Respiratory Exam: Clear to Ausculation Bilateral, NORMAL BREATHING PATTERN - Cardiovascular Exam Cardiovascular Exam: REGULAR RHYTHM, +S1, +S2 Additional comments: RCW portacath - GI/Abdominal Exam GI & Abdominal Exam: Soft, Normal Bowel Sounds. absent: Tenderness - Extremities Exam Extremities Exam: Full ROM, Normal Capillary Refill, Normal Inspection. absent : Joint Swelling, Pedal Edema - Back Exam Back Exam: NORMAL INSPECTION - Neurological Exam Neurological Exam: Alert, Awake, CN II-XII Intact, Normal Gait, Oriented x3 - Psychiatric Exam Psychiatric exam: Normal Affect, Normal Mood - Skin Skin Exam: Dry, Intact, Normal Color, Warm Assessment and Plan (1) Dehydration Status: Acute (2) Overdose Status: Acute (3) Diverticulitis Status: Acute (4) Dizziness Status: Acute (5) Hypokalemia Status: Acute (6) Leukocytosis Status: Acute (7) Malignant tumor head pancreas Status: Acute (8) Metastatic cancer Status: Acute (9) Port catheter in place Status: Acute - Assessment and Plan (Free Text) Plan: IVF hydration. Labs ordered. Pain medications adjustment per Hemo/Oncology. Consider more chemotherapy during this admission. R CW port is not patent. PT & OT. GI/VTE prophylaxis. Pain management: Tylenol, morphine 60mg ER q 12h Consults: Psych - Dr. Ingrid Selby GI - Dr. Merchant Hemo/Onc - Dr. Navarrete / Dr. Parker Pulmo - Dr. Stephen Reviewed: ECG = NSR CXR = WNL CT abd/pelvis = Pancreatic head mass w. biliary stent in place. metastatic disease to the lung liver. Retroperitoneal adenopathy [multiple pulmonary nodules consistent with metastatic disease periportal edema, biliary stent w pneumobia, mass in head of pancreas (consistent w. malignancy) w adjacent adenopathy, L renal cyst, small bowel is midly distended with fluid and air, dilated loop in the mid abdomen, partial R hemicolectomy, ileocolic anastomosis at hepatic flexure, moderate stool in colon, diverticulosis] <Georgina Ferrara - Last Filed: 02/11/18 21:07> Objective - Vital Signs/Intake and Output Vital Signs (last 24 hours): Temp Pulse Resp BP Pulse Ox 97.9 F 54 L 20 120/74 96 02/11/18 14:00 02/11/18 14:00 02/11/18 14:00 02/11/18 14:00 02/11/18 14:00 Intake and Output: 02/11/18 02/12/18 18:59 06:59 Intake Total 600 Balance 600 - Medications Medications: Current Medications Acetaminophen (Tylenol 325mg Tab) 650 mg PO Q6H PRN PRN Reason: Pain, Mild (1-3) Last Admin: 02/10/18 06:09 Dose: 650 mg Albuterol/Ipratropium (Duoneb 3 Mg/0.5 Mg (3 Ml) Ud) 3 ml IH [id number] [facility] Last Admin: 02/11/18 14:43 Dose: Not Given Alprazolam (Xanax) 1 mg PO HS [facility] PRN Reason: Protocol Last Admin: 02/10/18 22:26 Dose: 1 mg Alprazolam (Xanax) 0.5 mg PO DAILY PRN; Protocol PRN Reason: Anxiety Last Admin: 02/11/18 10:29 Dose: 0.5 mg Dextrose (Dextrose 5% In Water 1000 Ml) 1,000 mls @ 100 mls/hr IV .Q10H [facility] Last Admin: 02/11/18 17:50 Dose: 100 mls/hr Insulin Human Regular (Humulin R Low) 0 units SC ACHS [facility] PRN Reason: Protocol Last Admin: 02/11/18 17:50 Dose: Not Given Lisinopril (Zestril) 10 mg PO DAILY [facility] Last Admin: 02/11/18 10:29 Dose: 10 mg Metoclopramide HCl (Reglan) 10 mg IVP Q4 PRN PRN Reason: Nausea/Vomiting Last Admin: 02/11/18 11:26 Dose: 10 mg Metoprolol Tartrate (Lopressor) 25 mg PO DAILY [facility] Last Admin: 02/11/18 10:28 Dose: 25 mg Morphine Sulfate (Morphine Extended Release Tab) 60 mg PO Q12 [facility] Last Admin: 02/11/18 10:39 Dose: 60 mg Ondansetron HCl (Zofran Inj) 4 mg IVP Q6 PRN PRN Reason: Nausea/Vomiting Last Admin: 02/11/18 20:10 Dose: 4 mg Pantoprazole Sodium (Protonix Ec Tab) 40 mg PO ACB [facility] Last Admin: 02/11/18 08:29 Dose: 40 mg Polyethylene Glycol (Miralax) 17 gm PO BID PRN PRN Reason: Constipation Last Admin: 02/11/18 17:54 Dose: 17 gm Potassium Chloride (K-Dur 20 Meq Er Tab) 20 meq PO BID [facility] Last Admin: 02/11/18 17:55 Dose: 20 meq Pregabalin (Lyrica) 75 mg PO BID [facility] Last Admin: 02/11/18 17:55 Dose: 75 mg - Labs Labs: 02/11/18 08:30 02/11/18 08:30 Assessment and Plan - Assessment and Plan (Free Text) Plan: 67 yr female private office patient w/ history of HTN, DM II, COPD, Hepatitis C, fibromylagia, anxiety, depression, h/o poly substance abuse, gastroparesis, Sleep apnea (doesn't tolerate Cpap), colon resection, TIA & Pancreatic Cancer w/ becky (last chemotherapy on early 12/2017). Pt admitted to [facility] for AMS related to taking morphine, fentanyl, and drinking ETOH frequently. She was found to have overdosed on opiates. Today, pt seen at bedside. No distress noted. Pt denies any blurry vision, tinnitus, nausea, vomiting, fever chills, diarrhea, constipation, shortness of breath, chest pain, paresthesias, or urinary changes. pt is seen and examined at bed side , agreed all above , chart , meds and labs noted will f/u
--- NOTE | 2018-02-11 17:46 | CP.PCM.PN ---
Subjective - Date & Time of Evaluation Date of Evaluation: 02/11/18 Time of Evaluation: 11:00 - Subjective Subjective: Heme Onc Progress Note, Darien Boggs DO, PGY-2 IM This is a 67 yo with PMH of Hepatitis C, liver mass, lung nodules, pancreatic cancer, fibromyalgia,DM, type II, GERD, COPD, prior EtOH/Benzos/Cocaine abuse, and prior TIAs who was brought to [facility] after being found down, altered, and lethargic at home by boyfriend, who called EMS. Heme-onc was consulted due to hx of pancreatic cancer with possible mets. Patient seen and examined at bedside today. Fully awake and alert, no signs of somnolence/lethargy. Feels pain is adequately controlled. Emesis after dinner last night, but no acute events since. Denies chest pain, shortness of breath, or nausea at time of exam. As per nursing, has been ambulating with her own cane without calling for assistance despite instructions not to. Objective - Vital Signs/Intake and Output Vital Signs (last 24 hours): Temp Pulse Resp BP Pulse Ox 97.9 F 54 L 20 120/74 96 02/11/18 14:00 02/11/18 14:00 02/11/18 14:00 02/11/18 14:00 02/11/18 14:00 Intake and Output: 02/11/18 02/11/18 06:59 18:59 Intake Total 1920 600 Balance 1920 600 - Medications Medications: Current Medications Acetaminophen (Tylenol 325mg Tab) 650 mg PO Q6H PRN PRN Reason: Pain, Mild (1-3) Last Admin: 02/10/18 06:09 Dose: 650 mg Albuterol/Ipratropium (Duoneb 3 Mg/0.5 Mg (3 Ml) Ud) 3 ml IH [id number] BRITTNEY Last Admin: 02/11/18 14:43 Dose: Not Given Alprazolam (Xanax) 1 mg PO HS BRITTNEY PRN Reason: Protocol Last Admin: 02/10/18 22:26 Dose: 1 mg Alprazolam (Xanax) 0.5 mg PO DAILY PRN; Protocol PRN Reason: Anxiety Last Admin: 02/11/18 10:29 Dose: 0.5 mg Dextrose (Dextrose 5% In Water 1000 Ml) 1,000 mls @ 100 mls/hr IV .Q10H [facility] Last Admin: 02/11/18 11:26 Dose: 100 mls/hr Insulin Human Regular (Humulin R Low) 0 units SC ACHS [facility] PRN Reason: Protocol Last Admin: 02/11/18 13:22 Dose: Not Given Lisinopril (Zestril) 10 mg PO DAILY [facility] Last Admin: 02/11/18 10:29 Dose: 10 mg Metoclopramide HCl (Reglan) 10 mg IVP Q4 PRN PRN Reason: Nausea/Vomiting Last Admin: 02/11/18 11:26 Dose: 10 mg Metoprolol Tartrate (Lopressor) 25 mg PO DAILY [facility] Last Admin: 02/11/18 10:28 Dose: 25 mg Morphine Sulfate (Morphine Extended Release Tab) 60 mg PO Q12 [facility] Last Admin: 02/11/18 10:39 Dose: 60 mg Ondansetron HCl (Zofran Inj) 4 mg IVP Q6 PRN PRN Reason: Nausea/Vomiting Last Admin: 02/11/18 07:04 Dose: 4 mg Pantoprazole Sodium (Protonix Ec Tab) 40 mg PO ACB [facility] Last Admin: 02/11/18 08:29 Dose: 40 mg Polyethylene Glycol (Miralax) 17 gm PO BID PRN PRN Reason: Constipation Potassium Chloride (K-Dur 20 Meq Er Tab) 20 meq PO BID [facility] Last Admin: 02/11/18 10:28 Dose: 20 meq Pregabalin (Lyrica) 75 mg PO BID [facility] Last Admin: 02/11/18 10:28 Dose: 75 mg - Labs Labs: 02/11/18 08:30 02/11/18 08:30 - Additional Findings Additional findings: - Constitutional Appears: Non-toxic, No Acute Distress, Chronically Ill - Head Exam Head Exam: ATRAUMATIC, NORMAL INSPECTION, NORMOCEPHALIC - Eye Exam Eye Exam: EOMI, Normal appearance. absent: Conjunctival injection, Scleral icterus Pupil Exam: absent: Irregular, Unequal - ENT Exam ENT Exam: Mucous Membranes Moist - Neck Exam Neck exam: Positive for: Full Rom, Lymphadenopathy (shoddy lymphadenopathy along left cervical chain). Negative for: Thyromegaly - Respiratory Exam Respiratory Exam: Decreased Breath Sounds (mildly decreased breath sounds diffusely), Clear to Auscultation Bilateral, NORMAL BREATHING PATTERN. absent: Accessory Muscle Use, Chest Wall Tenderness, Rales, Rhonchi, Wheezes - Cardiovascular Exam Cardiovascular Exam: REGULAR RHYTHM, RRR, +S1, +S2. absent: Bradycardia, Tachycardia, Irregular Rhythm, JVD, +S4 - GI/Abdominal Exam GI & Abdominal Exam: Normal Bowel Sounds, Soft, Tenderness (mild tenderness diffusely, most prominent at LLQ - epigastric regions). absent: Diminished Bowel Sounds, Distended, Firm, Hyperactive Bowel Sounds, Hypoactive Bowel Sounds , Rigid - Extremities Exam Extremities exam: Positive for: normal inspection, pedal pulses present. Negative for: calf tenderness, pedal edema, tenderness - Neurological Exam Neurological exam: Alert, Oriented x3 Additional comments: awake and alert, following all commands appropriately moving all extremities spontaneously motor appears grossly intact and equal bilaterally slowed but steady gait with cane - Psychiatric Exam Psychiatric exam: Normal Affect, Normal Mood - Skin Skin Exam: Dry, Intact, Normal Color, Warm Assessment and Plan - Assessment and Plan (Free Text) Assessment: This is a 67 yo with PMH of Hepatitis C, liver mass, lung nodules, pancreatic cancer, fibromyalgia,DM, type II, GERD, COPD, prior EtOH/Benzos/Cocaine abuse, and prior TIAs who was brought to [facility] after being found down, altered, and lethargic at home by boyfriend, who called EMS. Heme-onc was consulted due to hx of pancreatic cancer with possible mets. Plan: Hepatitis C pancreatic cancer with possible lung and liver mets fibromyalgia DM type II GERD COPD prior EtOH/Benzos/Cocaine abuse AMS/somnolence - resolved -CT scan obtained overnight concerning for lung and liver mets, pt been off chemo regimen for > 4 weeks -Needs to resume chemo regimen, wants to continue following up with Dr. Navarrete -Chemo regimen to be resumed as outpt -Pain control as per primary but need to be cautious to avoid overmedicating in setting of accidental OD on presentation; current regimen appears adequate without overly sedating pt, no changes recommended at this time Patient reviewed and discussed with attending, Dr. Parker.
[2018-02-11] MEDS: POLYETHYLENE GLYCOL 3350 17 GM/Dose PACKET PO PRN (17:54)
--- NOTE | 2018-02-11 20:36 | PN ---
DATE: 02/11/2018 This is [facility] [place] [facility] visit on the medical floor for Dr. Parker. SUBJECTIVE: Patient is a 67-year-old female seen sitting up in bed with the patient denying any pain at this point. Anxious for discharged to home. Dr. Parker was asked for evaluation to evaluate the patient regarding her pancreatic cancer, for which she is under the care of Dr. Navarrete who has been treating the patient. Most recent treatment as reported in 12/2017 with the patient noncompliant in followup (?). The patient is also seen in the past by Dr. Rg with tissue diagnosis of her adenocarcinoma moderately differentiated on a tissue specimen submitted on 04/26/[address] Merchant, gastrointestinal it systems analyst consultant. A fine needle aspiration of peripancreatic and celiac lymph nodes which were significant for moderate differentiated adenocarcinoma. At the time, there was also no evidence of B and T-cell or non-Hodgkin lymphoma with 56 positive cells noted. The patient at present is in no acute distress with her analgesics controlling her pain as per Dr. Ferrara's recommendations along with her anxiolytics and Lyrica. The patient's only complaint at this point is that of constipation, for which we will offer MiraLax and prunes as she has not tried that to help with. Consideration for Amitiza should be necessary. With this, the patient is otherwise without complaint. PHYSICAL EXAMINATION: VITAL SIGNS: Temperature 97.9, pulse 82, respirations 20, blood pressure 120/74, pulse ox 96%. HEENT: Unremarkable. NECK: Supple. HEART: Regular rate. LUNGS: Rare rhonchi. ABDOMEN: Obese. Soft and nontender. EXTREMITIES: No edema. SKIN: Warm and dry. NEUROLOGIC: Awake, alert, and oriented. LABORATORY DATA: Patient's labs were done today with white blood cell count of 11.8, hemoglobin 12, hematocrit 37.5, platelet count of 283,000 with chem metabolic panel showing a normal chem metabolic panel with nonfasting glucose of 127. Her other testing include a CAT scan of the abdomen and pelvis done on 02/07/2018, it was read as pancreatic head mass with biliary stent in place, metastatic disease in the lung and liver, retroperitoneal adenopathy. No acute findings. ASSESSMENT: For this patient is that of metastatic pancreatic adenocarcinoma with recent treatment in 12/2017 (?) with metastases to lung and liver. Patient also suffers from fibromyalgia, diabetes, history of hepatitis C, substance abuse. Patient also has a history of transient ischemic attack with questionable suicide attempt in the past, depression. PLAN: The plan for this patient after conversation with Dr. Parker is to continue present medical regimen with discharge home as per Dr. Ferrara with Dr. Parker willing to see the patient for treatment upon discharge with recommendations to come to his office should she wish to change for her present coverage with Dr. Navarrete/Dr. Rg. Otherwise, the patient is recommended to continue treatment with her oncologist of choice as listed above. This is a complex patient with comprehensive medically necessary and appropriate visit carried out in excess of 30 minutes [id number] time with patient with an additional 20 minutes reviewing the patient's previous records with conversations with other doctors as indicated as above. Lopez Cordova MD
--- NOTE | 2018-02-11 23:42 | PN ---
DATE: PULMONARY PROGRESS NOTE REFERRING PHYSICIAN: Georgina Ferrara MD SUBJECTIVE: She is lying in the bed, head at 45 degrees. Night was unremarkable. No headache, no rhinitis, no nausea. Had some epigastric pain. No leg pain or leg swelling. OBJECTIVE GENERAL: In no acute distress. VITAL SIGNS: Temperature is 98, heart rate is 54, respiratory rate is 20, blood pressure 120/74, pulse ox 96% on 2 liters nasal cannula. HEENT: Moist mucous membrane. No ulcer or thrush noted. NECK: Supple. No JVD. LUNGS: Has a few scattered rhonchi. HEART: S1 and S2. ABDOMEN: Positive bowel sound. Epigastric tenderness. EXTREMITIES: There is no edema. NEUROLOGIC: Awake and alert. Follows simple command. MEDICATIONS: She is on IV fluid, D5 water 100 mL per hour, DuoNeb every 6 hours, insulin coverage, potassium 20 mEq twice a day, metoprolol tartrate 25 mg daily, Lyrica 75 mg twice a day, MiraLax 17 g twice a day p.r.n., morphine extended release 60 mg every 12 hours, Protonix 40 mg a.c.b. , Reglan 10 mg every 4 hours p.r.n., Tylenol p.r.n., Xanax 0.5 mg daily p.r.n. and also Xanax 1 mg at bedtime [id number], Zestril 10 mg daily, Zofran p.r.n. basis. LABORATORY DATA: Shows hemoglobin 12, hematocrit 37.5, WBC 11.8, platelet count is 283. Sodium 142, potassium 4, chloride 103, bicarbonate 30, BUN 5, creatinine 0.6, glucose 127, calcium is 9.6. IMPRESSION AND PLAN: Metastatic pancreatic cancer involving the liver and extensive metastasis to the lungs, chronic obstructive lung disease, suspected sleep apnea syndrome, admitted with drug overdose. Pulmonary point of view, doing okay, keep head at 45 degrees, bronchodilator, pain management. Psychiatry consult was called. health service worker being followed. Need to give responsibility of family member to watch her medication. She does have a genuine pain with metastatic disease, has to give some pain medication, but needs to follow closely. Thank you and we will follow with you. Linnea Stephen MD [facility] # [id number]
[2018-02-12] MEDS: Albuterol-Ipratrop 3 mg / 0.5 (3 ml) UD IH SCH ×4 (03:30→20:12)
[2018-02-12 07:26] LABS: BASO # 0.02 K/mm3 (0.0-2.0); BASO % 0.2 % (0.0-3.0); EOS # 0.3 (0.0-0.7); EOS % 3.6 % (1.5-5.0); GRAN # 5.26 (1.4-6.5); GRAN % 60.8 % (50.0-68.0); HEMOGLOBIN 13.5 g/dL (12.0-16.0); LYMPH # 2.4 (1.2-3.4); LYMPH % 27.3 % (22.0-35.0); MEAN CELL VOLUME 82.7 fl (80.0-105.0); MEAN CORPUSCULAR HEMOGLOBIN 26.8 pg (25.0-35.0); MEAN CORPUSCULAR HGB CONC 32.4 g/dl (31.0-37.0); MEAN PLATELET VOLUME 9.3 fl (7.0-11.0); MONO # 0.7 (0.1-0.6); MONO % 8.1 % (1.0-6.0); RBC 5.04 10^6/uL (3.5-6.1); RED CELL DISTRIBUTION WIDTH 15.9 % (11.5-14.5); WHITE BLOOD COUNT 8.7 10^3/ul (4.5-11.0)
[2018-02-12] MEDS: Insulin Reg-LOW-Coverage SC SCH ×4 (07:56→21:33)
[2018-02-12] MEDS: Pantoprazole 40 mg EC Tab PO SCH (08:01)
[2018-02-12] MEDS: Morphine 30 mg SR Tab PO SCH ×2 (09:00→21:26)
[2018-02-12] MEDS: Potassium Chloride 20 mEq ER Tab PO SCH ×2 (10:19→17:56)
[2018-02-12 14:17] LABS: ALB/GLOB RATIO 0.8 (1.1-1.8); ALBUMIN 3.3 g/dL (3.0-4.8); ALT/SGPT 34 U/L (7-56); AST/SGOT 59 U/L (14-36); BLOOD UREA NITROGEN 5 mg/dL (7-21); CALCIUM 9.8 mg/dL (8.4-10.5); GFR AFRICAN-AMERICAN > 60; GFR NON-AFRICAN AMERICAN > 60
[2018-02-12] MEDS: POLYETHYLENE GLYCOL 3350 17 GM/Dose PACKET PO PRN (14:44)
[2018-02-13] MEDS: Albuterol-Ipratrop 3 mg / 0.5 (3 ml) UD IH SCH ×4 (01:31→20:14)
[2018-02-13] MEDS: Morphine 30 mg SR Tab PO SCH ×2 (10:29→21:09)
[2018-02-13] MEDS: Potassium Chloride 20 mEq ER Tab PO SCH ×2 (10:30→17:32)
[2018-02-13] MEDS: Pantoprazole 40 mg EC Tab PO SCH (10:30)
[2018-02-13] MEDS: Insulin Reg-LOW-Coverage SC SCH ×4 (10:30→21:53)
--- NOTE | 2018-02-13 20:19 | PN ---
DATE: 02/13/[address] [facility] medical floor for Ms. Love. For Dr. Parker. SUBJECTIVE: The patient is a 67-year-old female sitting up in bed without complaint, still anxious for discharge home with second opinion as per Dr. Parker for her evaluation and treatment of her pancreatic cancer. She is under the care of Dr. Navarrete who has been treating the patient. Most recent treatment was in 12/2017 with the patient reportedly noncompliant in followup. The patient was also seen by Dr. Rg in the past. Also a Hematology/cheese specialist. The tissue diagnosis is that of adenocarcinoma, moderately differentiated on a tissue specimen submitted in 04/2017. There are no further records available on the computer system at this facility as the patient has been treated in [place] she reports with her chemotherapy protocols unavailable. After conversation with Dr. Parker and the patient, the patient reports that it is not convenient for her to be having treatment in [place] due to logistics with consideration for transfer her care to here with Dr. Parker in [place]. However, to do this safely, we would recommend that the patient be established as an office patient and to this end, Dr. Parker's card with information on scheduling appointment on an urgent basis, so that we may have access to her previous chemotherapy plan as per Dr. Navarrete and then to safely transition the patient to treatment here in Dr. Parker's facility versus outpatient clinic in the hospital. The patient was informed of this with this being the weekend. No chemotherapy would be initiated on the weekend as it was significant emergency with the patient recommended for followup upon discharge or since she continued to want to follow up with Dr. Navarrete. She would do this as per Dr. Navarrete's protocols. A long discussion was held with the patient to this end with her decision along with Dr. Ferrara'william to be done with arrangement of her records to be available to Dr. Parker if he will resume her care for her oncologic issues. She is otherwise in no acute distress. PHYSICAL EXAMINATION: VITAL SIGNS: Temperature 97.9, pulse 70, respirations 19, blood pressure 126/86, pulse ox 96%. HEENT: Unremarkable. NECK: Supple. HEART: Regular rate. LUNGS: Occasional rhonchi. ABDOMEN: Obese, soft and nontender. EXTREMITIES: No edema. SKIN: Warm and dry. NEUROLOGIC: Awake, alert, and oriented x3. LABORATORY DATA: Patient's labs were done yesterday with white blood cell count of 8.7, hemoglobin 13.5, hematocrit 41.7, platelet count of 309,000. The chem metabolic panel showing a nonfasting glucose of 136, magnesium 1.6, AST of 59, alkaline phosphatase 332 with a CA19-9 of 55.7 and a CEA value of 3.4. ASSESSMENT: For this patient is that of metastatic pancreatic adenocarcinoma with recent treatment in December 2017 (?) with metastases to the lung and liver. Fibromyalgia, diabetes, hepatitis C history, substance abuse (?), questionable transient ischemic attack, depression. PLAN: The plan for this patient after conversation with Dr. Parker is as above with the patient to follow up for medical record release and transfer of her care to Dr. Parker's office for her oncologic issues versus to follow up with Dr. Navarrete, her present oncologist upon discharge. Otherwise, to continue present medical regimen as per attending doctor, Dr. Ferrara with discharge home once she is stable as per Dr. Ferrara. This is a complex patient with a comprehensive medically necessary and appropriate visit carried out in excess of 30 minutes [id number] time with the patient explained again the need to either continue with her present medical plan treatment or to follow up with Dr. Parker. There is question whether the patient was compliant with her treatments in the past. She reports this is logistic-kowalski and may benefit by evaluation with Dr. Parker here in the office. Lopez Cordova MD
--- NOTE | 2018-02-13 23:54 | PN ---
DATE: 02/13/2018 PULMONARY PROGRESS NOTE REFERRING PHYSICIAN: Georgina Ferrara MD SUBJECTIVE: The patient is lying in the bed, head at 45 degrees. Night was unremarkable. No headache. No rhinitis. No nausea, mild abdominal pain, or dysuria. No leg pain or leg swelling. OBJECTIVE: GENERAL: No acute distress. VITAL SIGNS: Temperature is 98, heart rate 63, respiratory rate is 20, blood pressure 117/86, pulse ox 96% on room air. HEENT: Moist mucous membrane. Crowded airway. Mallampati score is 4. NECK: Supple. No JVD. LUNGS: Have fair airflow with rhonchi. HEART: S1, S2. ABDOMEN: Soft. Mild epigastric tenderness. EXTREMITIES: There is no edema. NEUROLOGICAL: Awake, alert, follow simple command. MEDICATIONS: She is on dextrose D5 water at 50 mL per hour, DuoNeb every 6 hours, insulin coverage, potassium 20 mEq twice a day, metoprolol tartrate 25 mg daily, Lyrica 75 mg twice a day, MiraLax 17 gm p.o. twice a day p.r.n., morphine 60 mg every 12 hours extended release, Protonix 40 mg daily, Tylenol p.r.n., Ultram 50 mg daily p.r.n., Xanax 0.5 mg daily and 1 mg h.s., and Zestril 10 mg daily. LABORATORY DATA: Reviewed. Noted blood sugar this morning 117. IMPRESSION AND PLAN: Metastatic pancreatic cancer involving the liver and extensive metastatic disease to the lung, chronic obstructive lung disease, suspected sleep apnea syndrome and noncompliant with continuous positive airway pressure and bilevel positive airway pressure, originally admitted with overdose. Presently doing well. Seen by psychiatrist. In the process of discharge planning, need to give responsibility to the family member to watch her medication. She has a high risk for overdose, but also with metastatic disease has a lot of pain. Does need pain medication as well as anxiolytic medication. We will follow with you. Linnea Stephen MD
--- NOTE | 2018-02-14 00:37 | PN ---
DATE: SUBJECTIVE: The patient is a 67-year-old female. The patient was seen and examined at the bedside, looking comfortable. No nausea, vomiting, or diarrhea. No hematuria or hematochezia. No swelling of the legs. No chest pain. No palpitation. Tolerating food very well. Discussion done with Dr. Navarrete about patient's chemotherapy because as per Dr. Marroquin they were not able to give chemotherapy. PHYSICAL EXAMINATION: VITAL SIGNS: Temperature 97.9, pulse 63, blood pressure 117/86, respiratory rate 18. HEENT: Head: Normocephalic and atraumatic. Eyes: PERRLA. Extraocular muscles intact. Conjunctivae clear. Nose patent. Mucous membrane moist. NECK: Supple. No carotid bruit. No JVD or thyromegaly. CHEST: Bilaterally symmetrical. HEART: S1 and S2 positive. LUNGS: Clear to auscultation. ABDOMEN: Soft. Bowel sounds present. No organomegaly. EXTREMITIES: No edema. No cyanosis. NEUROLOGIC: Patient is awake, alert. Moving all four extremities. No focal deficit. MEDICATIONS: Dextrose, albuterol, insulin, potassium, metoprolol, Lyrica, MiraLax, morphine sulfate, Protonix, Tylenol, tramadol, Xanax, and Zestril. LABORATORY DATA: White blood cell 8.7, hemoglobin 13.5, hematocrit 41.7, platelets 309. Glucose 117, 136, 166. In urine, opiates was positive. ASSESSMENT AND PLAN: Ms. Hortensia Love is a 67-year-old female with multiple medical problems, has metastatic pancreatic cancer involving the liver and extensive metastasis to the lungs, chronic obstructive lung disease, suspected sleep apnea syndrome, admitted with drug overdose. Patient needs pain management. Oncologist is on the case. Patient needs chemotherapy. Discussion done with Dr. Navarrete. Wednesday he will decide about patient's chemotherapy. Continue present treatment. Appreciated Dr. Lopez Cordova's notes also. Patient is getting pain management. Repeat labs. We will follow. Georgina Ferrara MD
[2018-02-14] MEDS: Albuterol-Ipratrop 3 mg / 0.5 (3 ml) UD IH SCH ×2 (01:35→07:38)
[2018-02-14 07:48] VITALS: PULSE 71; RESP 18; TEMP 98.1; O2SAT 99
[2018-02-14] MEDS: Potassium Chloride 20 mEq ER Tab PO SCH (10:02)
[2018-02-14] MEDS: Morphine 30 mg SR Tab PO SCH (10:03)
[2018-02-14] MEDS: Pantoprazole 40 mg EC Tab PO SCH (10:04)
[2018-02-14 10:07] VITALS: BP 146/89
[2018-02-14] MEDS: Insulin Reg-LOW-Coverage SC SCH ×2 (10:07→11:30)
--- NOTE | 2018-02-14 10:18 | PN ---
DATE: 02/12/2018 SUBJECTIVE: The patient seen and examined at the bedside, looking comfortable. No nausea, vomiting or diarrhea. No hematuria. No hematochezia. Still having lower abdominal pain. No fever. No chills. Had some epigastric pain. No swelling of the legs. PHYSICAL EXAMINATION: VITAL SIGNS: Temperature 98, heart rate 54, respiratory rate 20, blood pressure 120/74, pulse oximetry 96% on 2 litre nasal cannula. HEENT: Head: Normocephalic and atraumatic. Eyes: PERRLA. Extraocular muscles intact. Conjunctivae clear. Nose: Patent. Mucous membrane moist. NECK: Supple. No carotid bruit, JVD, or thyromegaly. CHEST: Bilaterally symmetrical. HEART: S1, S2 positive. ABDOMEN: Soft. Bowel sounds positive. EXTREMITIES: No edema. No cyanosis. NEUROLOGIC: Patient is awake, alert. Follows simple commands. MEDICATIONS: The patient is on IV fluid, DuoNeb, potassium, metoprolol, Lyrica, MiraLax, morphine, Reglan, Tylenol, Xanax, Zofran. LABORATORY DATA: Hemoglobin 12, hematocrit 37.5, white blood cell 11.8, platelets 283. Sodium 142, potassium 4, BUN 5, creatinine 0.6, glucose 127. ASSESSMENT AND PLAN: The patient is a 57-year-old lady with multiple medical problems, metastatic pancreatic cancer involving the liver and extensive metastasis to the lung, chronic obstructive lung disease, sleep apnea syndrome, was admitted with drug overdose because she was taking medicine for her pain of malignancy. Waiting for the oncologist input. Continue bronchodilators. Pain management. Psychiatrist is on the case. Social workers are being followed up for the patient's requirement per patient's responsible family member to watch her medications, especially pain medication. Gastrointestinal and deep venous thrombosis prophylaxis. Repeat labs. We will follow. Georgina Ferrara MD
--- NOTE | 2018-02-14 13:49 | CP.PCM.PN ---
Subjective - Date & Time of Evaluation Date of Evaluation: 02/14/18 Time of Evaluation: 09:00 - Subjective Subjective: Heme Onc Consult Note Patient seen and examined at bedside. Patient state that she continues to have pain around her upper abdomen. She is concerned about treatment after discharge. She is advised that treatment only be done as an outpatient. Objective - Vital Signs/Intake and Output Vital Signs (last 24 hours): Temp Pulse Resp BP Pulse Ox 98.1 F 71 18 146/89 99 02/14/18 07:47 02/14/18 07:47 02/14/18 07:47 02/14/18 10:04 02/14/18 12:38 Intake and Output: 02/14/18 02/14/18 06:59 18:59 Intake Total 240 Balance 240 - Medications Medications: Current Medications Acetaminophen (Tylenol 325mg Tab) 650 mg PO Q6H PRN PRN Reason: Pain, Mild (1-3) Last Admin: 02/12/18 08:06 Dose: 650 mg Albuterol/Ipratropium (Duoneb 3 Mg/0.5 Mg (3 Ml) Ud) 3 ml IH [id number] [facility] Last Admin: 02/14/18 07:38 Dose: Not Given Alprazolam (Xanax) 1 mg PO HS BRITTNEY PRN Reason: Protocol Last Admin: 02/13/18 21:10 Dose: 1 mg Alprazolam (Xanax) 0.5 mg PO DAILY PRN; Protocol PRN Reason: Anxiety Last Admin: 02/12/18 10:27 Dose: 0.5 mg Dextrose (Dextrose 5% In Water 1000 Ml) 1,000 mls @ 50 mls/hr IV .Q20H [facility] Last Admin: 02/14/18 03:00 Dose: 50 mls/hr Insulin Human Regular (Humulin R Low) 0 units SC ACHS BRITTNEY PRN Reason: Protocol Last Admin: 02/14/18 11:30 Dose: Not Given Lisinopril (Zestril) 10 mg PO DAILY [facility] Last Admin: 02/14/18 10:02 Dose: 10 mg Metoprolol Tartrate (Lopressor) 25 mg PO DAILY [facility] Last Admin: 02/14/18 10:04 Dose: 25 mg Morphine Sulfate (Morphine Extended Release Tab) 30 mg PO Q12 [facility] Last Admin: 02/14/18 10:03 Dose: 30 mg Pantoprazole Sodium (Protonix Ec Tab) 40 mg PO ACB [facility] Last Admin: 02/14/18 10:04 Dose: 40 mg Polyethylene Glycol (Miralax) 17 gm PO BID PRN PRN Reason: Constipation Last Admin: 02/12/18 14:44 Dose: 17 gm Potassium Chloride (K-Dur 20 Meq Er Tab) 20 meq PO BID [facility] Last Admin: 02/14/18 10:02 Dose: 20 meq Pregabalin (Lyrica) 75 mg PO BID [facility] Last Admin: 02/14/18 10:03 Dose: 75 mg Tramadol HCl (Ultram) 50 mg PO Q8 PRN PRN Reason: Pain, moderate (4-7) Last Admin: 02/14/18 12:58 Dose: 50 mg - Labs Labs: 02/12/18 07:00 02/12/18 13:50 - Constitutional Appears: No Acute Distress - Head Exam Head Exam: ATRAUMATIC, NORMAL INSPECTION, NORMOCEPHALIC - Eye Exam Eye Exam: EOMI, Normal appearance - ENT Exam ENT Exam: Mucous Membranes Moist - Respiratory Exam Respiratory Exam: Clear to Ausculation Bilateral, NORMAL BREATHING PATTERN. absent: Rhonchi, Wheezes, Respiratory Distress - Cardiovascular Exam Cardiovascular Exam: REGULAR RHYTHM - GI/Abdominal Exam GI & Abdominal Exam: Soft, Normal Bowel Sounds. absent: Distended, Firm - Extremities Exam Extremities Exam: Normal Inspection - Neurological Exam Neurological Exam: Alert, Awake, Oriented x3 - Skin Skin Exam: Dry, Intact, Normal Color, Warm Assessment and Plan - Assessment and Plan (Free Text) Assessment: 67 yo with PMH of Hepatitis C, liver mass, lung nodules, pancreatic cancer, fibromyalgia,DM, type II, GERD, COPD, prior EtOH/Benzos/Cocaine abuse, and prior TIAs who [place] [facility] [place] found down, altered, and lethargic at home by boyfriend. Heme-onc was consulted due to hx of pancreatic cancer with possible mets. Hepatitis C pancreatic cancer with possible lung and liver mets fibromyalgia DM type II GERD COPD prior EtOH/Benzos/Cocaine abuse AMS/somnolence - resolved Plan: -CT scan obtained overnight concerning for lung and liver mets, pt been off chemo regimen for > 4 weeks -Normally follows with Dr. Navarrete; called and notified him regarding his pt, he is aware and will be seeing the pt in-house shortly -Patient advised to follow up once discharged with either Dr. Navarrete or Patient reviewed and discussed with attending, Dr. Parker
--- NOTE | 2018-02-14 13:53 | CP.PCM.DIS ---
<Francia Olivas - Last Filed: 02/14/18 13:50> Provider - Provider Date of Admission: 02/06/18 20:42 Attending physician: Georgina Ferrara MD Consults: Psych - Dr. Ingrid Selby GI - Dr. Merchant Hemo/Onc - Dr. Navarrete / Dr. Parker Pulmo - Dr. Stephen Time Spent in preparation of Discharge (in minutes): 45 Diagnosis - Discharge Diagnosis (1) Dehydration Status: Acute (2) Overdose Status: Acute (3) Diverticulitis Status: Acute (4) Dizziness Status: Acute (5) Hypokalemia Status: Acute (6) Leukocytosis Status: Acute (7) Malignant tumor head pancreas Status: Acute (8) Metastatic cancer Status: Acute (9) Port catheter in place Status: Acute Hospital Course - Lab Results Lab Results: Most Recent Lab Values WBC 8.7 10^3/ul (4.5-11.0) D 02/12/18 07:00 RBC 5.04 10^6/uL (3.5-6.1) 02/12/18 07:00 Hgb 13.5 g/dL (12.0-16.0) 02/12/18 07:00 Hct 41.7 % (36.0-48.0) 02/12/18 07:00 MCV 82.7 fl (80.0-105.0) 02/12/18 07:00 MCH 26.8 pg (25.0-35.0) 02/12/18 07:00 MCHC 32.4 g/dl (31.0-37.0) 02/12/18 07:00 RDW 15.9 % (11.5-14.5) H 02/12/18 07:00 Plt Count 309 10^3/uL (120.0-450.0) 02/12/18 07:00 MPV 9.3 fl (7.0-11.0) 02/12/18 07:00 Gran % 60.8 % (50.0-68.0) 02/12/18 07:00 Lymph % (Auto) 27.3 % (22.0-35.0) 02/12/18 07:00 [place] % (Auto) 8.1 % (1.0-6.0) H 02/12/18 07:00 Eos % (Auto) 3.6 % (1.5-5.0) 02/12/18 07:00 Baso % (Auto) 0.2 % (0.0-3.0) 02/12/18 07:00 Gran # 5.26 (1.4-6.5) 02/12/18 07:00 Lymph # (Auto) 2.4 (1.2-3.4) 02/12/18 07:00 [place] # (Auto) 0.7 (0.1-0.6) H 02/12/18 07:00 Eos # (Auto) 0.3 (0.0-0.7) 02/12/18 07:00 Baso # (Auto) 0.02 K/mm3 (0.0-2.0) 02/12/18 07:00 Sodium 143 mmol/L (132-148) 02/12/18 13:50 Potassium 4.1 mmol/L (3.6-5.0) 02/12/18 13:50 Chloride 105 mmol/L (98-107) 02/12/18 13:50 Carbon Dioxide 31 mmol/L (21-33) 02/12/18 13:50 Anion Gap 12 (10-20) 02/12/18 13:50 BUN 5 mg/dL (7-21) L 02/12/18 13:50 Creatinine 0.7 mg/dl (0.7-1.2) 02/12/18 13:50 Est GFR ( Amer) > 60 02/12/18 13:50 Est GFR (Non-Af Amer) > 60 02/12/18 13:50 POC Glucose (mg/dL) 149 mg/dL (65-110) H 02/14/18 11:38 Random Glucose 127 mg/dL (70-110) H 02/12/18 13:50 Hemoglobin A1c 5.5 % (4.2-6.5) 02/07/18 05:55 Calcium 9.8 mg/dL (8.4-10.5) 02/12/18 13:50 Phosphorus 4.5 mg/dL (2.5-4.5) 02/12/18 13:50 Magnesium 1.6 mg/dL (1.7-2.2) L 02/12/18 13:50 Iron 49 ug/dL (45-180) 02/07/18 05:55 TIBC 214 ug/dL (265-497) L 02/07/18 05:55 % Saturation 23 % (20-55) 02/07/18 05:55 Total Bilirubin 0.6 mg/dL (0.2-1.3) 02/12/18 13:50 AST 59 U/L (14-36) H D 02/12/18 13:50 ALT 34 U/L (7-56) 02/12/18 13:50 Alkaline Phosphatase 332 U/L (38-126) H 02/12/18 13:50 Total Protein 7.7 g/dL (5.8-8.3) 02/12/18 13:50 Albumin 3.3 g/dL (3.0-4.8) 02/12/18 13:50 Globulin 4.3 gm/dL 02/12/18 13:50 Albumin/Globulin Ratio 0.8 (1.1-1.8) L 02/12/18 13:50 Triglycerides 88 mg/dL (35-160) 02/07/18 05:55 Cholesterol 175 mg/dL (130-200) 02/07/18 05:55 LDL Cholesterol Direct 129 mg/dL (0-129) 02/07/18 05:55 HDL Cholesterol 23 mg/dL (29-60) L 02/07/18 05:55 Lipase 194 U/L (23-300) 02/05/18 16:10 Carcinoembryonic Ag 3.4 ng/mL (0.0-3.0) H 02/12/18 13:50 CA 19-9 Antigen 55.7 U/mL (0-37) H D 02/12/18 13:50 Vitamin B12 614 pg/mL (239-931) 02/07/18 05:55 Folate 8.9 ng/mL 02/07/18 05:55 TSH 3rd Generation 1.09 mIU/mL (0.46-4.68) 02/07/18 05:55 Urine Color Yellow (YELLOW) 02/05/18 18:00 Urine Appearance Clear (CLEAR) 02/05/18 18:00 Urine pH 6.0 (4.7-8.0) 02/05/18 18:00 Ur Specific [place] 1.010 (1.005-1.035) 02/05/18 18:00 Urine Protein Negative mg/dL (<30 mg/dL) 02/05/18 18:00 Urine Glucose (UA) Negative mg/dL (NEGATIVE) 02/05/18 18:00 Urine Ketones Negative mg/dL (NEGATIVE) 02/05/18 18:00 Urine Blood Negative (NEGATIVE) 02/05/18 18:00 Urine Nitrate Negative (NEGATIVE) 02/05/18 18:00 Urine Bilirubin Negative (NEGATIVE) 02/05/18 18:00 Urine Urobilinogen 0.2 E.U./dL (<1 E.U./dL) 02/05/18 18:00 Ur Leukocyte Esterase Negative Ellie/uL (NEGATIVE) 02/05/18 18:00 Urine Opiates Screen Positive (NEGATIVE) H 02/05/18 18:00 Urine Methadone Screen Negative (NEGATIVE) 02/05/18 18:00 Ur Barbiturates Screen Negative (NEGATIVE) 02/05/18 18:00 Ur Phencyclidine Scrn Negative (NEGATIVE) 02/05/18 18:00 Ur Amphetamines Screen Negative (NEGATIVE) 02/05/18 18:00 U Benzodiazepines Scrn Positive (NEGATIVE) 02/05/18 18:00 U Oth Cocaine Metabols Negative (NEGATIVE) 02/05/18 18:00 U Cannabinoids Screen Negative (NEGATIVE) 02/05/18 18:00 Alcohol, Quantitative < 10 mg/dL (0-10) 02/05/18 16:30 - Hospital Course Hospital Course: 67 yr female private office patient w/ history of HTN, DM II, COPD, Hepatitis C, fibromylagia, anxiety, depression, h/o poly substance abuse, gastroparesis, Sleep apnea (doesn't tolerate Cpap), colon resection, TIA & Pancreatic Cancer w/ becky (last chemotherapy on early 12/2017). Pt admitted to [facility] [place] for AMS related to taking morphine, fentanyl, and drinking ETOH frequently. She was found to have overdosed on opiates. Pain medications adjusted morphine 30mg ER q 12h and tramadol 50mg q8hr PRN. DISCONTINUED fentanyl patch per POA request. RCW port is not patent per nursing staff. Chemotherapy will be done outpatient per , Hemo/Oncology. Pt is s/p IVF hydration. Pt is safe for discharge home with f/u to Hemo/Onco and our office. Reviewed: ECG = NSR CXR = WNL CT abd/pelvis = Pancreatic head mass w. biliary stent in place. metastatic disease to the lung liver. Retroperitoneal adenopathy [multiple pulmonary nodules consistent with metastatic disease periportal edema, biliary stent w pneumobia, mass in head of pancreas (consistent w. malignancy) w adjacent adenopathy, L renal cyst, small bowel is midly distended with fluid and air, dilated loop in the mid abdomen, partial R hemicolectomy, ileocolic anastomosis at hepatic flexure, moderate stool in colon, diverticulosis] - Date & Time of H&P Date of H&P: 02/14/18 Time of H&P: 11:45 Discharge Exam - Head Exam Head Exam: ATRAUMATIC, NORMAL INSPECTION, NORMOCEPHALIC Additional comments: alopecia - Eye Exam Eye Exam: Normal appearance Pupil Exam: NORMAL ACCOMODATION Additional comments: wearing corrective eyeglasses. - Neck Exam Neck exam: Full Rom - Respiratory Exam Respiratory Exam: Clear to PA & Lateral, NORMAL BREATHING PATTERN - Cardiovascular Exam Cardiovascular Exam: +S1, +S2 Additional comments: RCW portacath - GI/Abdominal Exam GI & Abdominal Exam: Normal Bowel Sounds - Extremities Exam Extremities exam: normal capillary refill, normal inspection - Back Exam Back exam: NORMAL INSPECTION - Neurological Exam Neurological exam: Alert, CN II-XII Intact, Normal Gait, Oriented x3, Reflexes Normal - Skin Skin Exam: Dry, Intact, Normal Color, Warm Discharge Plan - Follow Up Plan Condition: GUARDED Disposition: HOME/ ROUTINE Instructions: High Cholesterol, Chronic Obstructive Pulmonary Disease (COPD), Including Emphysema, High Blood Pressure in Adults, Quitting Smoking for Older Adults, Opioid Use Disorder, Dehydration (DC), Dehydration (GEN) Additional Instructions: PLEASE FOLLOW UP WITH DR FERRARA CALL AND MAKE APPOINTMENT <Georgina Ferrara - Last Filed: 02/14/18 17:31> Provider - Provider Date of Admission: 02/06/18 20:42 Attending physician: Georgina Ferrara MD Hospital Course - Lab Results Lab Results: Most Recent Lab Values WBC 8.7 10^3/ul (4.5-11.0) D 02/12/18 07:00 RBC 5.04 10^6/uL (3.5-6.1) 02/12/18 07:00 Hgb 13.5 g/dL (12.0-16.0) 02/12/18 07:00 Hct 41.7 % (36.0-48.0) 02/12/18 07:00 MCV 82.7 fl (80.0-105.0) 02/12/18 07:00 MCH 26.8 pg (25.0-35.0) 02/12/18 07:00 MCHC 32.4 g/dl (31.0-37.0) 02/12/18 07:00 RDW 15.9 % (11.5-14.5) H 02/12/18 07:00 Plt Count 309 10^3/uL (120.0-450.0) 02/12/18 07:00 MPV 9.3 fl (7.0-11.0) 02/12/18 07:00 Gran % 60.8 % (50.0-68.0) 02/12/18 07:00 Lymph % (Auto) 27.3 % (22.0-35.0) 02/12/18 07:00 [place] % (Auto) 8.1 % (1.0-6.0) H 02/12/18 07:00 Eos % (Auto) 3.6 % (1.5-5.0) 02/12/18 07:00 Baso % (Auto) 0.2 % (0.0-3.0) 02/12/18 07:00 Gran # 5.26 (1.4-6.5) 02/12/18 07:00 Lymph # (Auto) 2.4 (1.2-3.4) 02/12/18 07:00 [place] # (Auto) 0.7 (0.1-0.6) H 02/12/18 07:00 Eos # (Auto) 0.3 (0.0-0.7) 02/12/18 07:00 Baso # (Auto) 0.02 K/mm3 (0.0-2.0) 02/12/18 07:00 Sodium 143 mmol/L (132-148) 02/12/18 13:50 Potassium 4.1 mmol/L (3.6-5.0) 02/12/18 13:50 Chloride 105 mmol/L (98-107) 02/12/18 13:50 Carbon Dioxide 31 mmol/L (21-33) 02/12/18 13:50 Anion Gap 12 (10-20) 02/12/18 13:50 BUN 5 mg/dL (7-21) L 02/12/18 13:50 Creatinine 0.7 mg/dl (0.7-1.2) 02/12/18 13:50 Est GFR ( Amer) > 60 02/12/18 13:50 Est GFR (Non-Af Amer) > 60 02/12/18 13:50 POC Glucose (mg/dL) 149 mg/dL (65-110) H 02/14/18 11:38 Random Glucose 127 mg/dL (70-110) H 02/12/18 13:50 Hemoglobin A1c 5.5 % (4.2-6.5) 02/07/18 05:55 Calcium 9.8 mg/dL (8.4-10.5) 02/12/18 13:50 Phosphorus 4.5 mg/dL (2.5-4.5) 02/12/18 13:50 Magnesium 1.6 mg/dL (1.7-2.2) L 02/12/18 13:50 Iron 49 ug/dL (45-180) 02/07/18 05:55 TIBC 214 ug/dL (265-497) L 02/07/18 05:55 % Saturation 23 % (20-55) 02/07/18 05:55 Total Bilirubin 0.6 mg/dL (0.2-1.3) 02/12/18 13:50 AST 59 U/L (14-36) H D 02/12/18 13:50 ALT 34 U/L (7-56) 02/12/18 13:50 Alkaline Phosphatase 332 U/L (38-126) H 02/12/18 13:50 Total Protein 7.7 g/dL (5.8-8.3) 02/12/18 13:50 Albumin 3.3 g/dL (3.0-4.8) 02/12/18 13:50 Globulin 4.3 gm/dL 02/12/18 13:50 Albumin/Globulin Ratio 0.8 (1.1-1.8) L 02/12/18 13:50 Triglycerides 88 mg/dL (35-160) 02/07/18 05:55 Cholesterol 175 mg/dL (130-200) 02/07/18 05:55 LDL Cholesterol Direct 129 mg/dL (0-129) 02/07/18 05:55 HDL Cholesterol 23 mg/dL (29-60) L 02/07/18 05:55 Lipase 194 U/L (23-300) 02/05/18 16:10 Carcinoembryonic Ag 3.4 ng/mL (0.0-3.0) H 02/12/18 13:50 CA 19-9 Antigen 55.7 U/mL (0-37) H D 02/12/18 13:50 Vitamin B12 614 pg/mL (239-931) 02/07/18 05:55 Folate 8.9 ng/mL 02/07/18 05:55 TSH 3rd Generation 1.09 mIU/mL (0.46-4.68) 02/07/18 05:55 Urine Color Yellow (YELLOW) 02/05/18 18:00 Urine Appearance Clear (CLEAR) 02/05/18 18:00 Urine pH 6.0 (4.7-8.0) 02/05/18 18:00 Ur Specific [place] 1.010 (1.005-1.035) 02/05/18 18:00 Urine Protein Negative mg/dL (<30 mg/dL) 02/05/18 18:00 Urine Glucose (UA) Negative mg/dL (NEGATIVE) 02/05/18 18:00 Urine Ketones Negative mg/dL (NEGATIVE) 02/05/18 18:00 Urine Blood Negative (NEGATIVE) 02/05/18 18:00 Urine Nitrate Negative (NEGATIVE) 02/05/18 18:00 Urine Bilirubin Negative (NEGATIVE) 02/05/18 18:00 Urine Urobilinogen 0.2 E.U./dL (<1 E.U./dL) 02/05/18 18:00 Ur Leukocyte Esterase Negative Ellie/uL (NEGATIVE) 02/05/18 18:00 Urine Opiates Screen Positive (NEGATIVE) H 02/05/18 18:00 Urine Methadone Screen Negative (NEGATIVE) 02/05/18 18:00 Ur Barbiturates Screen Negative (NEGATIVE) 02/05/18 18:00 Ur Phencyclidine Scrn Negative (NEGATIVE) 02/05/18 18:00 Ur Amphetamines Screen Negative (NEGATIVE) 02/05/18 18:00 U Benzodiazepines Scrn Positive (NEGATIVE) 02/05/18 18:00 U Oth Cocaine Metabols Negative (NEGATIVE) 02/05/18 18:00 U Cannabinoids Screen Negative (NEGATIVE) 02/05/18 18:00 Alcohol, Quantitative < 10 mg/dL (0-10) 02/05/18 16:30 - Hospital Course Hospital Course: pt is seen and examined at bed side . agreed all above , d/d with refractory repairer . will f/u
--- NOTE | 2018-02-15 06:47 | PN ---
DATE: 02/12/2018 PULMONARY PROGRESS NOTE REFERRING PHYSICIAN: Dr. Ferrara. SUBJECTIVE: She is sitting on the side of the bed. Night was unremarkable. No headache, no rhinitis. Breathing is better. No nausea, no vomiting. No diarrhea. No leg pain or leg swelling. OBJECTIVE: GENERAL: In no acute distress. VITAL SIGNS: Temperature is 98, heart rate is 75, respiratory rate is 18, blood pressure 128/95, pulse ox 99% on room air. HEENT: Moist mucous membrane. Crowded airway. NECK: Supple. No JVD. LUNGS: Have fair airflow with rhonchi. HEART: S1 and S2. ABDOMEN: Soft, nontender, nondistended. Epigastric area has tenderness. EXTREMITIES: There is no edema. NEUROLOGIC: Awake and alert, follows simple command. MEDICATIONS: She is on IV fluid D5 50 mL per hour, DuoNeb every 6 hours [id number], insulin coverage, potassium 20 mEq twice a day, metoprolol tartrate 25 mg daily, Lyrica 75 mg twice a day, MiraLax 17 g twice a day, morphine extended release 60 mg every 12 hours, Protonix 40 mg , Reglan 10 mg every 4 hours p.r.n., Tylenol p.r.n., Ultram 50 mg daily p.r.n., Xanax 0.5 mg daily p.r.n., also Xanax 1 mg at bedtime, Zestril 10 mg daily, Zofran p.r.n. basis. LABORATORY DATA: Shows hemoglobin 13.5, hematocrit 41.7, WBC 8.7, platelet count is 309. Sodium 142, potassium 4.1, chloride 105, bicarbonate 31, BUN 5, creatinine 0.7, glucose 127, calcium is 9.8, phosphorus is 4.5, magnesium is 1.6, AST 59, ALT 34, alk phos is 332. Albumin is 3.3. Carcinoembryonic antigen 3.4. CA 19-9 antigen is 55.7. IMPRESSION AND PLAN: Metastatic pancreatic cancer involving the liver and extensive metastatic disease to the lung, chronic obstructive lung disease, suspected sleep apnea syndrome, admitted with overdose. Spoke to nursing staff. Patient is doing well. Continue pain management, bronchodilator, she had been constipated for couple of days, already received prune juice. We will give MiraLax. If no bowel movement, may give Dulcolax suppository. Fall precaution. Will need Oncology followup to restart chemotherapy. Psychiatry followup. Thank you and we will follow with you. Linnea Stephen MD
== END 2018-02-14 14:50 | disposition home or self-care (01) | DRG 918 ==
LOC: ED 15:02 → ERH 18:37 → 3RSO 22:17 → OBSVTOIN 02-06 20:42 → 5RSO 02-08 19:52
PROVIDERS: ADMIT Internal Medicine; ATTEND Internal Medicine
DX: T39.91XA Poisoning by unspecified nonopioid analgesic, antipyretic and antirheumatic, accidental (unintentional), initial encounter (principal); C25.0 Malignant neoplasm of head of pancreas; K57.92 Diverticulitis of intestine, part unspecified, without perforation or abscess without bleeding; C78.7 Secondary malignant neoplasm of liver and intrahepatic bile duct; C78.00 Secondary malignant neoplasm of unspecified lung; K31.84 Gastroparesis; E11.43 Type 2 diabetes mellitus with diabetic autonomic (poly)neuropathy; J44.9 Chronic obstructive pulmonary disease, unspecified; I10 Essential (primary) hypertension; G47.33 Obstructive sleep apnea (adult) (pediatric); F41.9 Anxiety disorder, unspecified; F32.9 Major depressive disorder, single episode, unspecified; B19.20 Unspecified viral hepatitis C without hepatic coma; E86.0 Dehydration; E87.6 Hypokalemia; M79.7 Fibromyalgia; K21.9 Gastro-esophageal reflux disease without esophagitis; D64.9 Anemia, unspecified; G89.3 Neoplasm related pain (acute) (chronic); F14.10 Cocaine abuse, uncomplicated; R40.2413 Glasgow coma scale score 13-15, at hospital admission; E11.649 Type 2 diabetes mellitus with hypoglycemia without coma; G89.4 Chronic pain syndrome; K59.00 Constipation, unspecified; Z79.84 Long term (current) use of oral hypoglycemic drugs; Z86.73 Personal history of transient ischemic attack (TIA), and cerebral infarction without residual deficits; Z87.891 Personal history of nicotine dependence; Z91.19 Patient's noncompliance with other medical treatment and regimen; Z90.49 Acquired absence of other specified parts of digestive tract

== ENCOUNTER 2018-03-09 16:38 | Inpatient (IN) | payer MEDICARE, OTHER ==
[2018-03-09 16:54] VITALS: BMI 28.4
[2018-03-09] MEDS ORDERED: Sodium Chloride 0.9% 1,000 ML IV STA (17:21)
[2018-03-09 17:49] LABS: INR 1.22 (0.93-1.08); PARTIAL THROMBOPLASTIN TIME 35.9 Seconds (25.1-36.5)
[2018-03-09 17:59] LABS: ALB/GLOB RATIO 0.7 (1.1-1.8); ALBUMIN 3.2 g/dL (3.0-4.8); ALT/SGPT 23 U/L (7-56); AMYLASE 183 U/L (35-125); AST/SGOT 91 U/L (14-36); BLOOD UREA NITROGEN 5 mg/dL (7-21); CALCIUM 9.1 mg/dL (8.4-10.5); GFR AFRICAN-AMERICAN > 60; GFR NON-AFRICAN AMERICAN > 60; LIPASE 868 U/L (23-300)
[2018-03-09] MEDS ORDERED: Potassium Chloride 20 mEq ER Tab PO STA (18:04)
[2018-03-09] MEDS ORDERED: Iohexol 350 MG/100 ML VIAL ONE (18:12)
--- NOTE | 2018-03-09 18:15 | US ---
HISTORY: Jaundice COMPARISON: None. TECHNIQUE: Sonographic evaluation of the right upper quadrant of the abdomen. FINDINGS: Grossly limited examination. Patient unable to tolerate examination. LIVER: Grossly limited. Multiple masses identified. GALLBLADDER: Unable to evaluate COMMON BILE DUCT: Measures dilated to a diameter of approximately 12 mm. Mm. No stones. No dilatation. PANCREAS: Unable to evaluate RIGHT KIDNEY: Unable to evaluate AORTA: Unable to evaluate IVC: Unable to evaluate OTHER FINDINGS: None . IMPRESSION: Grossly limited examination. Multiple hepatic metastases. Dilated common bile duct.
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
[2018-03-09 18:33] LABS: BASO # 0.02 K/mm3 (0.0-2.0); BASO % 0.1 % (0.0-3.0); EOS # 0.1 (0.0-0.7); EOS % 0.4 % (1.5-5.0); GRAN # 13.84 (1.4-6.5); GRAN % 85.2 % (50.0-68.0); HEMOGLOBIN 11.1 g/dL (12.0-16.0); LYMPH # 1.4 (1.2-3.4); LYMPH % 8.8 % (22.0-35.0); MEAN CELL VOLUME 77.4 fl (80.0-105.0); MEAN CORPUSCULAR HEMOGLOBIN 26.4 pg (25.0-35.0); MEAN PLATELET VOLUME 9.4 fl (7.0-11.0); MONO # 0.9 (0.1-0.6); MONO % 5.5 % (1.0-6.0); RBC 4.21 10^6/uL (3.5-6.1); RED CELL DISTRIBUTION WIDTH 19.4 % (11.5-14.5); WHITE BLOOD COUNT 16.2 10^3/ul (4.5-11.0)
--- NOTE | 2018-03-09 18:37 | RAD ---
HISTORY: h/o pancreatic CA with mets COMPARISON: 02/05/2018 FINDINGS: LUNGS: No infiltrate. Two left-sided pulmonary nodules see, 1 lateral to left hilum and 1 at lateral left base. It is consistent with metastatic disease as demonstrated on CT of 02/07/2018. PLEURA: No significant pleural effusion identified, no pneumothorax apparent. CARDIOVASCULAR: Normal heart size. Right central venous infusion port. OSSEOUS STRUCTURES: No significant abnormalities. VISUALIZED UPPER ABDOMEN: Normal. OTHER FINDINGS: None. IMPRESSION: Several left-sided pulmonary nodules. These
[2018-03-09] MEDS ORDERED: Piperacillin/Tazobact 3.375 gm 100 ML IVPB STA (18:42)
[2018-03-09] MEDS ORDERED: Vancomycin 1gm in NS 250ml 1 GM/250 ML BAG IVPB STA (18:42)
[2018-03-09] MEDS ORDERED: Morphine 4 mg/ml ISec IVP STA ×2 (19:20→20:40)
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
[2018-03-09] MEDS ORDERED: Sodium Chloride 0.9% 1,000 ML IV ONE (20:40)
--- NOTE | 2018-03-09 22:37 | US ---
EXAM: US Ivc Vasc EXAM DATE/TIME: 03/09/2018 8:40 PM CLINICAL HISTORY: 67 years old, female; Pain; Other: Ivc thrombus seen on CT scan; Abdominal pain; Generalized; Additional info: ? Thrombus seen in ivc on CT TECHNIQUE: Real-time ultrasound of the ivc vasc with image documentation. COMPARISON: US - AORTA, IVC, ILIAC DUPLEX 2017-03-12 09:29 FINDINGS: Inferior vena cava: Evaluation of the inferior vena cava is limited by bowel gas and patient pain. There is color flow in the proximal aorta. Midportion appears partially occluded with hypoechoic material filling the lumen. The inferior vena cava at the bifurcation could not be visualized. There is expected color flow in the aorta. Liver: There are multiple masses in the liver. Nodes: There are enlarged nodes in the upper abdomen. IMPRESSION: Limited evaluation of the inferior vena cava, findings suggest partially occlusive thrombus in the midportion of the inferior vena cava
[2018-03-09] MEDS ORDERED: Heparin25000 units/250ml 1/2NS 25,000 UNITS/250 ML BAG IV PRN (23:00)
[2018-03-09] MEDS ORDERED: Heparin 25,000units in 1/2NS /250 ML BAG IV PRN (23:08)
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
[2018-03-10] MEDS ORDERED: Albuterol-Ipratrop 3 mg / 0.5 (3 ml) UD IH PRN (00:14)
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
[2018-03-10 01:05] LABS: BILIRUBIN,DIRECT 13.1 mg/dL (0.0-0.4)
[2018-03-10] MEDS: Morphine 4 mg/ml ISec IVP PRN ×7 (01:33→23:39)
[2018-03-10] MEDS: Sodium Chloride 0.9% 1,000 ML IV SCH ×2 (01:34→10:00)
[2018-03-10] MEDS: MethylPREDNISolone 40 mg Vial IVP SCH ×3 (01:35→21:53)
[2018-03-10] MEDS: Albuterol-Ipratrop 3 mg / 0.5 (3 ml) UD IH SCH ×4 (01:42→19:21)
[2018-03-10] MEDS ORDERED: Morphine 4 mg/ml ISec IVP STA (03:36)
[2018-03-10] MEDS: Pantoprazole 40 mg EC Tab PO SCH (05:16)
[2018-03-10] MEDS ORDERED: Pantoprazole 40 mg EC Tab PO SCH (06:00)
--- NOTE | 2018-03-10 06:09 | HP ---
DATE OF EXAM: 03/09/2018 The patient is a 67-year-old female. CHIEF COMPLAINT: Yellow coloration on the face. HISTORY OF PRESENT ILLNESS: The patient was seen and examined at the bedside. Ms. Hortensia Love is 67-year-old my private patient with a history of pancreatic cancer with metastasis, on chemotherapy, last was in 12/2017, SP common bile duct stent, came to the emergency room with [id number], complaining of jaundice. [id number] visited the patient today and noticed that her skin and eyes were very yellowish. She had last seen the patient 2 days ago and did not notice the same. Patient also reported that today she was nauseous, vomiting and dizziness. Appetite is going down. She is complaining of abdominal pain, which is similar to the pain she has. She denies any fever, chills, diarrhea, or constipation. PAST MEDICAL HISTORY: Hypertension, bronchitis, COPD, asthma, emphysema, sleep apnea, TIA, diabetes mellitus type 2, pancreatic cancer stage III with mets to the lungs, history of chemotherapy, history of hepatitis C, pancreatic cancer with mets to the liver, stomach and lungs, history of colon surgery, appendectomy, colon resection, liver biopsy, diverticulitis, history of anxiety, schizophrenia, fibromyalgia, history of polysubstance abuse and gastroparesis. FAMILY HISTORY: Father and mother, noncontributory. HABITS: Smoking: Yes. Alcohol: Yes, stopped 4 months ago. Substance abuse history: Yes. ALLERGIES: PATIENT IS NOT ALLERGIC WITH ANY MEDICATIONS. HOME MEDICATIONS: Glipizide, Zestril, Lopressor, Singulair, morphine, Lyrica, Reglan. REVIEW OF SYSTEMS: Patient is seen and examined on the bedside in emergency. Feeling very fatigued and tired. She is looking yellow. Itchiness, nauseous. Appetite decreased. Sometimes, abdominal pain. No fever. No chills. No hematuria or hematochezia. PHYSICAL EXAMINATION: VITAL SIGNS: Temperature 97.9, pulse 107, respiratory rate 20, blood pressure 127/91, pulse oximetry 99. HEENT: Head, normocephalic and atraumatic. Eyes, PERRLA. Extraocular muscles intact. Conjunctivae yellow. Nose patent. Mucous membranes moist. NECK: Supple. No carotid bruit, JVD, or thyromegaly. CHEST: Bilaterally symmetrical. HEART: S1 and S2 positive. LUNGS: Clear to auscultation. ABDOMEN: Soft. Bowel sounds present. No organomegaly. EXTREMITIES: No edema. No cyanosis. NEUROLOGIC: Patient is awake and alert. Moving all four extremities. No focal deficits. LABORATORY DATA: White blood cell is 15.2, hemoglobin 11.1, hematocrit 32.6, platelets 437. Sodium 139, potassium 3.1, BUN 5, creatinine 0.6, glucose 67. ASSESSMENT AND PLAN: Ms. Hortensia Love is a 67-year-old lady with leukocytosis, anemia, hypokalemia, hypoglycemia, came with obstructive jaundice, history of pancreatic cancer with metastasis, abdominal pain, malignant tumor of the head of the pancreas. Aortic ultrasound was done, showed partially occlusive thrombus in the mid portion of the inferior vena cava. So, we are admitting the patient in the unit, need heparin. Chest x-ray was done. CAT scan of the abdomen and pelvis done looks like patient had pneumobilia with biliary stent, interval development of biliary and pancreatic duct dilatation, stent malfunctioning, pancreatic head mass and extensive peripancreatic and upper abdominal adenopathy consistent with flow phenomena versus thrombus in the inferior vena cava, hepatic and pulmonary metastases. Discussion done with the emergency room physician, back and forth, multiple times. Gallbladder ultrasound was done. We will give patient pain management. Patient's Oncology consult called with Dr. Parker and Dr. Loi Zamudio's consult report ,possibly occluding biliary stent. Gastrointestinal and deep vein thrombosis prophylaxis. We will follow up. Georgina Ferrara MD [facility]
[2018-03-10 06:31] LABS: BASO # 0.01 K/mm3 (0.0-2.0); BASO % 0.1 % (0.0-3.0); GRAN % 95.1 % (50.0-68.0); HEMOGLOBIN 10.7 g/dL (12.0-16.0); LYMPH # 0.7 (1.2-3.4); LYMPH % 4.2 % (22.0-35.0); MEAN CELL VOLUME 77.1 fl (80.0-105.0); MEAN CORPUSCULAR HEMOGLOBIN 26.4 pg (25.0-35.0); MEAN CORPUSCULAR HGB CONC 34.2 g/dl (31.0-37.0); MEAN PLATELET VOLUME 9.5 fl (7.0-11.0); MONO # 0.1 (0.1-0.6); MONO % 0.6 % (1.0-6.0); PLATELET COUNT 396 10^3/uL (120.0-450.0); RBC 4.06 10^6/uL (3.5-6.1); RED CELL DISTRIBUTION WIDTH 19.6 % (11.5-14.5); WHITE BLOOD COUNT 16.3 10^3/ul (4.5-11.0)
[2018-03-10 06:52] LABS: INR 1.31 (0.93-1.08); PARTIAL THROMBOPLASTIN TIME 59.8 Seconds (25.1-36.5); PROTHROMBIN TIME 15.1 SECONDS (9.4-12.5)
[2018-03-10 07:43] LABS: BLOOD UREA NITROGEN 5 mg/dL (7-21); CALCIUM 9.2 mg/dL (8.4-10.5); GFR AFRICAN-AMERICAN > 60; GFR NON-AFRICAN AMERICAN > 60
[2018-03-10] MEDS: Insulin Reg-MEDIUM-Coverage SC SCH ×4 (08:03→21:56)
[2018-03-10 08:23] LABS: BAND 1 % (0-2); LYMPHOCYTE 4 % (22.0-35.0); MONOCYTE 0 % (1.0-6.0); NEUTROPHIL 95 % (50.0-70.0)
[2018-03-10 08:24] LABS: PLATELET ESTIMATE NORMAL (NORMAL)
[2018-03-10] MEDS: LIPASE PO SCH ×3 (09:28→17:02)
[2018-03-10] MEDS: AMYLASE PO SCH ×3 (09:28→17:02)
[2018-03-10] MEDS: PROTEASE PO SCH ×3 (09:28→17:02)
[2018-03-10] MEDS ORDERED: Dextrose 5%/0.9% NS 1,000 ML IV SCH (10:15)
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
--- NOTE | 2018-03-10 11:57 | CP.CCUPN ---
CCU Subjective - Physician Review Subjective (Free Text): Patient seen and examined at bedside. When asked how she is feeling she states " I don't know how to answer that." Patient admits to her chronic nausea and abdominal pain with radiation to the right side of her back which has been present since she was diagnosed with pancreatic cancer. Patient states when admitted she experienced shortness of breath which has since resolved. Patient during physical exam began feeling nauseous however states she hasn't vomited as usual in the past few days due to lack of appetite. She states her abdominal pain, nausea, vomiting, and lost of appetite waxes and wanes. Currently denies fevers, chills, vomiting, diarrhea, headache, cough, shortness of breath. CCU Objective - Vital Signs / Intake & Output Vital Signs (Last 4 hours): Vital Signs Pulse Resp BP Pulse Ox 03/10/18 09:18 84 143/99 H 03/10/18 09:17 84 143/99 H 03/10/18 08:30 83 100 03/10/18 08:20 84 5 L 100 03/10/18 08:10 81 21 98 03/10/18 08:00 79 21 143/99 H 98 Intake and Output (Last 8hrs): Intake & Output 03/09/18 03/10/18 03/10/18 22:59 06:59 14:59 Weight 75.251 kg - Physical Exam Head: Positive for: Atraumatic, Normocephalic Pupils: Positive for: PERRL Extroacular Muscles: Positive for: EOMI Conjunctiva: Positive for: Icteric Mouth: Positive for: Dry Neck: Positive for: Normal Range of Motion Respiratory/Chest: Positive for: Clear to Auscultation. Negative for: Wheezes, Rhonchi Cardiovascular: Positive for: Regular Rate and Rhythm, Normal S1, S2 Abdomen: Positive for: Tenderness, Normal Bowel Sounds. Negative for: Distention, Guarding Upper Extremity: Positive for: Normal Inspection. Negative for: Cyanosis, Edema Lower Extremity: Positive for: Normal Inspection. Negative for: Edema, CALF TENDERNESS Neurological: Positive for: GCS=15, CN II-XII Intact Skin: Positive for: Warm, Dry. Negative for: Normal Color (Jaundice) Psychiatric: Positive for: Alert, Oriented x 3, Normal Insight, Normal Concentration - Medications Active Medications: Active Medications Generic Name Dose Route Start Last Admin Trade Name [email or web address] PRN Reason Stop Dose Admin Albuterol/Ipratropium 3 ml 03/10/18 00:14 Duoneb 3 Mg/0.5 Mg (3 Ml) Ud IH Q2H PRN Shortness of Breath Albuterol/Ipratropium 3 ml 03/10/18 02:00 03/10/18 07:32 Duoneb 3 Mg/0.5 Mg (3 Ml) Ud IH Not Given [id number] BRITTNEY Heparin Sodium/Sodium Chloride 25,000 units in 250 mls @ 13.537 mls/hr 23:08 03/09/18 23:18 Heparin 50417 Units/250ml 1/2 Normal Saline IV 18 units/kg/hr .[id number] PRN 13.537 mls/hr ADJUST RATE PER PROTOCOL Administration Protocol 18 UNITS/KG/HR Dextrose/Sodium Chloride 1,000 mls @ 100 mls/hr 03/10/18 10:15 03/10/18 11:00 Dextrose 5%/0.9% Ns 1000 Ml IV 100 mls/hr .Q10H BRITTNEY Administration Ibuprofen 400 mg 03/09/18 23:24 Motrin Tab PO Q6H PRN Pain, Mild (1-3) Insulin Human Regular 0 units 03/10/18 07:30 03/10/18 08:03 Humulin R Med SC Not Given ACHS [facility] Protocol Lisinopril 10 mg 03/10/18 10:00 03/10/18 09:17 Zestril PO 10 mg DAILY BRITTNEY Administration Methylprednisolone 20 mg 03/10/18 00:30 03/10/18 09:18 Solu-Medrol IVP 20 mg Q12 BRITTNEY Administration Metoclopramide HCl 5 mg 03/10/18 10:00 03/10/18 09:18 Reglan PO 5 mg TID BRITTNEY Administration Metoprolol Tartrate 25 mg 03/10/18 10:00 03/10/18 09:18 Lopressor PO 25 mg DAILY BRITTNEY Administration Montelukast Sodium 10 mg 03/10/18 10:00 03/10/18 09:18 Singulair PO 10 mg DAILY BRITTNEY Administration Morphine Sulfate 4 mg 03/09/18 23:24 03/10/18 09:30 Morphine IVP 4 mg Q3H PRN Administration Pain, severe (8-10) Lipase/Protease/ 3,000 cap 03/10/18 10:00 03/10/18 09:28 Amylase [Creon Dr 3, PO Not Given 000 Units Capsule] ( TID [facility] Home Med) Ondansetron HCl 4 mg 03/09/18 23:24 Zofran Inj IVP Q6H PRN Nausea/Vomiting Pantoprazole Sodium 40 mg 03/10/18 06:00 03/10/18 05:16 Protonix Ec Tab PO 40 mg 0600 BRITTNEY Administration Pregabalin 75 mg 03/10/18 10:00 03/10/18 09:18 Lyrica PO 75 mg DAILY BRITTNEY Administration - Patient Studies Lab Studies: Lab Studies 03/10/18 03/10/18 03/10/18 Range/Units 07:41 05:20 05:20 WBC (4.5-11.0) 10^3/ul RBC (3.5-6.1) 10^6/uL Hgb (12.0-16.0) g/dL Hct (36.0-48.0) % MCV (80.0-105.0) fl MCH (25.0-35.0) pg MCHC (31.0-37.0) g/dl RDW (11.5-14.5) % Plt Count (120.0-450.0) 10^3/uL MPV (7.0-11.0) fl Gran % (50.0-68.0) % Lymph % (Auto) (22.0-35.0) % [place] % (Auto) (1.0-6.0) % Eos % (Auto) (1.5-5.0) % Baso % (Auto) (0.0-3.0) % Gran # (1.4-6.5) Lymph # (Auto) (1.2-3.4) [place] # (Auto) (0.1-0.6) Eos # (Auto) (0.0-0.7) Baso # (Auto) (0.0-2.0) K/mm3 Neutrophils % (Manual) (50.0-70.0) % Band Neutrophils % (0-2) % Lymphocytes % (Manual) (22.0-35.0) % Monocytes % (Manual) (1.0-6.0) % Platelet Evaluation (NORMAL) PT 15.1 H (9.4-12.5) SECONDS INR 1.31 H (0.93-1.08) APTT 59.8 H (25.1-36.5) Seconds Sodium 139 (132-148) mmol/L Potassium 3.9 (3.6-5.0) mmol/L Chloride 104 (98-107) mmol/L Carbon Dioxide 23 (21-33) mmol/L Anion Gap 17 (10-20) BUN 5 L (7-21) mg/dL Creatinine 0.6 L (0.7-1.2) mg/dl Est GFR ( Amer) > 60 Est GFR (Non-Af Amer) > 60 POC Glucose (mg/dL) 62 L (65-110) mg/dL Random Glucose 60 L (70-110) mg/dL Calcium 9.2 (8.4-10.5) mg/dL Phosphorus (2.5-4.5) mg/dL Magnesium (1.7-2.2) mg/dL Direct Bilirubin (0.0-0.4) mg/dL Ammonia (9-33) umol/L Blood Type Antibody Screen BBK History Checked 03/10/18 03/10/18 03/10/18 Range/Units 05:20 00:30 00:30 WBC 16.3 H (4.5-11.0) 10^3/ul RBC 4.06 (3.5-6.1) 10^6/uL Hgb 10.7 L (12.0-16.0) g/dL Hct 31.3 L (36.0-48.0) % MCV 77.1 L (80.0-105.0) fl MCH 26.4 (25.0-35.0) pg MCHC 34.2 (31.0-37.0) g/dl RDW 19.6 H (11.5-14.5) % Plt Count 396 (120.0-450.0) 10^3/uL MPV 9.5 (7.0-11.0) fl Gran % 95.1 H (50.0-68.0) % Lymph % (Auto) 4.2 L (22.0-35.0) % [place] % (Auto) 0.6 L (1.0-6.0) % Eos % (Auto) 0.0 L (1.5-5.0) % Baso % (Auto) 0.1 (0.0-3.0) % Gran # 15.50 H (1.4-6.5) Lymph # (Auto) 0.7 L (1.2-3.4) [place] # (Auto) 0.1 (0.1-0.6) Eos # (Auto) 0.0 (0.0-0.7) Baso # (Auto) 0.01 (0.0-2.0) K/mm3 Neutrophils % (Manual) 95 H (50.0-70.0) % Band Neutrophils % 1 (0-2) % Lymphocytes % (Manual) 4 L (22.0-35.0) % Monocytes % (Manual) 0 L (1.0-6.0) % Platelet Evaluation Normal (NORMAL) PT (9.4-12.5) SECONDS INR (0.93-1.08) APTT (25.1-36.5) Seconds Sodium (132-148) mmol/L Potassium (3.6-5.0) mmol/L Chloride (98-107) mmol/L Carbon Dioxide (21-33) mmol/L Anion Gap (10-20) BUN (7-21) mg/dL Creatinine (0.7-1.2) mg/dl Est GFR ( Amer) Est GFR (Non-Af Amer) POC Glucose (mg/dL) (65-110) mg/dL Random Glucose (70-110) mg/dL Calcium (8.4-10.5) mg/dL Phosphorus 3.7 (2.5-4.5) mg/dL Magnesium 1.7 (1.7-2.2) mg/dL Direct Bilirubin 13.1 H (0.0-0.4) mg/dL Ammonia 13 (9-33) umol/L Blood Type Antibody Screen BBK History Checked 03/10/18 Range/Units 00:30 WBC (4.5-11.0) 10^3/ul RBC (3.5-6.1) 10^6/uL Hgb (12.0-16.0) g/dL Hct (36.0-48.0) % MCV (80.0-105.0) fl MCH (25.0-35.0) pg MCHC (31.0-37.0) g/dl RDW (11.5-14.5) % Plt Count (120.0-450.0) 10^3/uL MPV (7.0-11.0) fl Gran % (50.0-68.0) % Lymph % (Auto) (22.0-35.0) % [place] % (Auto) (1.0-6.0) % Eos % (Auto) (1.5-5.0) % Baso % (Auto) (0.0-3.0) % Gran # (1.4-6.5) Lymph # (Auto) (1.2-3.4) [place] # (Auto) (0.1-0.6) Eos # (Auto) (0.0-0.7) Baso # (Auto) (0.0-2.0) K/mm3 Neutrophils % (Manual) (50.0-70.0) % Band Neutrophils % (0-2) % Lymphocytes % (Manual) (22.0-35.0) % Monocytes % (Manual) (1.0-6.0) % Platelet Evaluation (NORMAL) PT (9.4-12.5) SECONDS INR (0.93-1.08) APTT (25.1-36.5) Seconds Sodium (132-148) mmol/L Potassium (3.6-5.0) mmol/L Chloride (98-107) mmol/L Carbon Dioxide (21-33) mmol/L Anion Gap (10-20) BUN (7-21) mg/dL Creatinine (0.7-1.2) mg/dl Est GFR ( Amer) Est GFR (Non-Af Amer) POC Glucose (mg/dL) (65-110) mg/dL Random Glucose (70-110) mg/dL Calcium (8.4-10.5) mg/dL Phosphorus (2.5-4.5) mg/dL Magnesium (1.7-2.2) mg/dL Direct Bilirubin (0.0-0.4) mg/dL Ammonia (9-33) umol/L Blood Type A POSITIVE Antibody Screen Negative BBK History Checked Patient has bt Laboratory Results - last 24 hr 03/10/18 03/10/1818 00:30 00:30 00:30 WBC RBC Hgb Hct MCV MCH MCHC RDW Plt Count MPV Gran % Lymph % (Auto) [place] % (Auto) Eos % (Auto) Baso % (Auto) Gran # Lymph # (Auto) [place] # (Auto) Eos # (Auto) Baso # (Auto) Neutrophils % (Manual) Band Neutrophils % Lymphocytes % (Manual) Monocytes % (Manual) Platelet Evaluation PT INR APTT Sodium Potassium Chloride Carbon Dioxide Anion Gap BUN Creatinine Est GFR ( Amer) Est GFR (Non-Af Amer) POC Glucose (mg/dL) Random Glucose Calcium Phosphorus 3.7 Magnesium 1.7 Direct Bilirubin 13.1 H Ammonia 13 Blood Type A POSITIVE Antibody Screen Negative BBK History Checked Patient has bt 03/10/18 03/10/18 03/10/18 05:20 05:20 05:20 WBC 16.3 H RBC 4.06 Hgb 10.7 L Hct 31.3 L MCV 77.1 L MCH 26.4 MCHC 34.2 RDW 19.6 H Plt Count 396 MPV 9.5 Gran % 95.1 H Lymph % (Auto) 4.2 L [place] % (Auto) 0.6 L Eos % (Auto) 0.0 L Baso % (Auto) 0.1 Gran # 15.50 H Lymph # (Auto) 0.7 L [place] # (Auto) 0.1 Eos # (Auto) 0.0 Baso # (Auto) 0.01 Neutrophils % (Manual) 95 H Band Neutrophils % 1 Lymphocytes % (Manual) 4 L Monocytes % (Manual) 0 L Platelet Evaluation Normal PT 15.1 H INR 1.31 H APTT 59.8 H Sodium 139 Potassium 3.9 Chloride 104 Carbon Dioxide 23 Anion Gap 17 BUN 5 L Creatinine 0.6 L Est GFR ( Amer) > 60 Est GFR (Non-Af Amer) > 60 POC Glucose (mg/dL) Random Glucose 60 L Calcium 9.2 Phosphorus Magnesium Direct Bilirubin Ammonia Blood Type Antibody Screen BBK History Checked 03/10/18 07:41 WBC RBC Hgb Hct MCV MCH MCHC RDW Plt Count MPV Gran % Lymph % (Auto) [place] % (Auto) Eos % (Auto) Baso % (Auto) Gran # Lymph # (Auto) [place] # (Auto) Eos # (Auto) Baso # (Auto) Neutrophils % (Manual) Band Neutrophils % Lymphocytes % (Manual) Monocytes % (Manual) Platelet Evaluation PT INR APTT Sodium Potassium Chloride Carbon Dioxide Anion Gap BUN Creatinine Est GFR ( Amer) Est GFR (Non-Af Amer) POC Glucose (mg/dL) 62 L Random Glucose Calcium Phosphorus Magnesium Direct Bilirubin Ammonia Blood Type Antibody Screen BBK History Checked EKG/Cardiology Studies: Cardiology / EKG Studies 03/10/18 23:41 EKG [ELECTROCARDIOGRAM] Stat Comment: Reason For Exam: EYE PROBLEM Fingerstick Blood Sugar Results: 62 Review of Systems - Constitutional Constitutional: absent: Fever, Chills, Sweats - Cardiovascular Cardiovascular: absent: Chest Pain, Dyspnea - Respiratory Respiratory: absent: Cough, Dyspnea - Gastrointestinal Gastrointestinal: Abdominal Pain, Nausea. absent: Diarrhea, Vomiting - Genitourinary Genitourinary: absent: Dysuria - Musculoskeletal Musculoskeletal: absent: Neck Pain, Stiffness - Integumentary Integumentary: absent: Jaundice (patient states she does not notice her jaundice ) - Neurological Neurological: absent: Dizziness, Numbness, Weakness - Psychiatric Psychiatric: absent: Anxiety - Endocrine Endocrine: UNREMARKABLE - Hematologic/Lymphatic Hematologic: UNREMARKABLE Critical Care Progress Note - Nutrition Nutrition: Nutrition Category Date Time Status NPO Diet [DIET] Diets 03/10/18 Breakfast Ordered Assessment/Plan - Assessment and Plan (Free Text) Assessment: Patient is a 67 year old female with a history of COPD, sleep apnea, colon resection, TIA, pancreatic cancer with hepatic and lung mets who is presenting with complaints of jaundice found to have mets to liver and lung as well as possible stenosis of previously placed biliary stent and newly found IVC thrombus on imaging for which heparin drip has been started. Plan: Neuro: - AAO x 3 - Ammonia level normal - Elevate head of bed 30 degrees - Continue lyrica 75 daily - Continue with morphine for pain control Cardiovascular: - IVC Thrombus; heparin drip started, IR consulted. - Maintain MAP > 65 - Maintain normotension - Continue home lisinopril, home lopressor Pulmonary - Maintain SPO2 > 90 % - 2L NC prn, Duonebs PRN and BRITTNEY, Continue home Singulair, Solumedrol - taper as needed GI: Pancreatic Cancer - Direct Bilirubin 13.1; NPO - Morphine q3 PRN, Protonix Daily, Continue home Pancrease enzymes 3000 PO TID - Heme/Onc on consult - IR Consult: Dr. Zamudio for occluded biliary stent Renal: - Monitor electrolytes; replete as needed - Continue to monitor renal function - Maintain euvolemia ID: - F/u Blood cultures - Monitor leukocytosis and other SIRS criteria right now - Zosyn administered #day 2 Endo: - Maintain euglycemia with glucose at 140 -160 - Maintain normothermia - Continue ISS Medium with Accuchecks - D5W started
[2018-03-10] MEDS ORDERED: Piperacillin/Tazobact 3.375 gm 100 ML IVPB STA (12:10)
[2018-03-10] MEDS: Dextrose 5%/0.9% NS 1,000 ML IV SCH (14:43)
[2018-03-10] MEDS ORDERED: Midazolam 2 MG/2 ML VIAL ONE ×3 (15:08→16:07)
[2018-03-10] MEDS ORDERED: Lidocaine 2% Inj (20ml) ONE (15:08)
[2018-03-10] MEDS ORDERED: Iodixanol 320 MG/ML 100 ML BOTTLE IV ONE (15:09)
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
[2018-03-10] MEDS: Cefepime 1gm in NS 100ml 1 GM/100 ML BAG IVPB SCH (16:46)
[2018-03-10 17:17] LABS: VENOUS BLOOD GAS BASE EXCESS -2.6 mmol/L (0.0-2.0); VENOUS BLOOD GAS PO2 218 mm/Hg (30-55); VENOUS BLOOD PH 7.39 (7.32-7.43)
--- NOTE | 2018-03-10 17:42 | VASCULAR ---
PROCEDURE: 1. Transhepatic cholangiogram. 2. Internal/external biliary drainage HISTORY: Pancreatic carcinoma. Previous internal biliary stent placement. Progression of tumor with biliary obstruction and cholangitis. Needs internal/external biliary drain PHYSICIAN(S): Loi Zamudio MD. TECHNIQUE: The relative risks and indications of the procedure were explained to the patient and consent obtained. The patient was placed supine on the arteriogram table in the right abdomen and flank prepped and draped usual sterile fashion. Conscious sedation monitoring were provided throughout the procedure by a nurse. The patient was given antibiotics prior to the procedure. A puncture site in the mid axillary line on the right was selected. Skin is soft tissues were anesthetized 1 percent xylocaine. Approximately 3 punctures with a 21 gauge needle were required to enter the dilated right intrahepatic bile ducts. 0.018 guidewire was advanced centrally. The Accustick system was placed. Exchange is made for a 5 [place] bearing sting catheter and 0.035 glidewire. The malignant obstruction as superior to the stent was crossed with the angled glidewire and catheter. Catheter wire were advanced through the stent and placed in the duodenum. Exchange is made for a 0.035 Amplatz wire. The skin and soft tissues were dilated with subsequent placement of a 12 [place] internal/external biliary drain extending from the right hepatic ducts to the duodenum. The catheter was flushed and secured. The patient tolerated the procedure well. FINDINGS: Moderate to severe intrahepatic bile duct dilatation is seen. A malignant obstruction of the CBD just below the cystic duct is seen which extends 3 cm above the existing stent. The internal stent extends to the duodenum. IMPRESSION: 1.Progression of tumor superiorly over groin the top of the previously placed stent. 2. Successful internal/external biliary drain placement 3. The patient will be evaluated in the future for placement of a stent extension to the common hepatic duct.
[2018-03-10] MEDS: Vancomycin 1gm in NS 250ml 1 GM/250 ML BAG IVPB SCH (18:01)
[2018-03-10] MEDS ORDERED: Heparin25000 units/250ml 1/2NS 25,000 UNITS/250 ML BAG IV PRN (19:46)
--- NOTE | 2018-03-10 22:46 | CARD ---
APPROVED REPORT EKG Measurement Heart [id number] <Conclusion> Normal sinus rhythm Nonspecific T wave abnormality Prolonged QT Abnormal ECG
[2018-03-11] MEDS: Dextrose 5%/0.9% NS 1,000 ML IV SCH ×2 (00:04→06:11)
[2018-03-11] MEDS: Albuterol-Ipratrop 3 mg / 0.5 (3 ml) UD IH SCH ×4 (02:39→20:50)
[2018-03-11] MEDS: Vancomycin 1gm in NS 250ml 1 GM/250 ML BAG IVPB SCH ×2 (03:00→15:25)
[2018-03-11] MEDS: Morphine 4 mg/ml ISec IVP PRN ×5 (04:35→21:13)
--- NOTE | 2018-03-11 05:19 | PN ---
DATE: 03/10/2018 The patient is a 67-year-old female. SUBJECTIVE: The patient is seen and examined on the bedside, looking comfortable. Still having abdominal pain. [id number] and boyfriend sitting on the bedside. Still admits nauseous, abdominal pain with radiation to the right side of her back, which has been persistent since she was diagnosed with pancreatic cancer. Appetite is not great. Shortness of breath is getting a little bit better. Currently, denies fever or chills. No hematuria or hematochezia. PHYSICAL EXAMINATION: VITAL SIGNS: Temperature 98.6, pulse 79, respiratory rate 21, blood pressure 143/99, pulse oximetry 99. HEENT: Head, normocephalic and atraumatic. Eyes, PERRLA. Extraocular muscles intact. Conjunctivae are clear. Nose patent. NECK: Supple. No carotid bruit, JVD, or thyromegaly. CHEST: Bilaterally symmetrical. HEART: S1 and S2 positive. LUNGS: Clear to auscultation. ABDOMEN: Is soft, tender in all four quadrants especially in the epigastric area. No organomegaly. EXTREMITIES: No edema. No cyanosis. NEUROLOGIC: Patient is awake, alert. Follow simple commands. MEDICATIONS: She is on DuoNeb, heparin, ibuprofen, insulin, Zestril, Solu-Medrol, Lopressor, Singulair, morphine, Zofran, Protonix and Lyrica. LABORATORY DATA: PT is 15.1, INR is 1.31, APTT is 10.8. Sodium 139, potassium 3.9, BUN 5, creatinine 0.6, chloride 104, GFR more than 60, calcium 9.2. White blood cells 16.3, hemoglobin 10.7, hematocrit 31.3 and platelets 396. ASSESSMENT AND PLAN: Ms. Hortensia Love is a 67-year-old lady with a history of multiple medical problems, chronic obstructive pulmonary disease, sleep apnea, colon resection, history of colon cancer, transient ischemic attack, pancreatic cancer with metastasis to the liver and lungs, came with obstructive jaundice, found to have metastasis in the liver and lungs as well as possibly stenosis of previously placed biliary stent and newly formed inferior vena cava thrombus on the imaging for which heparin drip has been started and admitted the patient to the unit. Discussion done with Dr. Stephen and patient's [id number], tried to educate her about do not resuscitate and do not intubate. She is working in [facility] [employer], she knows about that. She is talking to the family about that. Continue Lyrica. Continue morphine for pain control. Maintaining normotension. Getting morphine for pain, Protonix for gastritis. To continue home pancreas enzymes [address] Parker is on the case. Planning for chemotherapy. Discussion done with Dr. Stephen and patient's [id number], boyfriend and patient herself, maintain normothermia. Continue with Accu-Chek. D5W started. Gastrointestinal and deep vein thrombosis prophylaxis. Repeat labs. We will follow up. Georgina Ferrara MD SH[facility]
[2018-03-11] MEDS: Pantoprazole 40 mg EC Tab PO SCH (05:21)
[2018-03-11] MEDS: Cefepime 1gm in NS 100ml 1 GM/100 ML BAG IVPB SCH (05:22)
[2018-03-11 06:56] LABS: GRAN # 18.85 (1.4-6.5); GRAN % 94.9 % (50.0-68.0); HEMOGLOBIN 8.8 g/dL (12.0-16.0); LYMPH # 0.4 (1.2-3.4); MEAN CELL VOLUME 77.5 fl (80.0-105.0); MEAN CORPUSCULAR HEMOGLOBIN 25.7 pg (25.0-35.0); MEAN CORPUSCULAR HGB CONC 33.2 g/dl (31.0-37.0); MEAN PLATELET VOLUME 8.9 fl (7.0-11.0); MONO # 0.6 (0.1-0.6); MONO % 3.1 % (1.0-6.0); RBC 3.42 10^6/uL (3.5-6.1); RED CELL DISTRIBUTION WIDTH 20.2 % (11.5-14.5); WHITE BLOOD COUNT 19.9 10^3/ul (4.5-11.0)
[2018-03-11] MEDS: Insulin Reg-MEDIUM-Coverage SC SCH ×4 (07:30→22:20)
[2018-03-11 07:35] LABS: ALB/GLOB RATIO 0.7 (1.1-1.8); ALBUMIN 2.7 g/dL (3.0-4.8); ALT/SGPT 35 U/L (7-56); AST/SGOT 86 U/L (14-36); BLOOD UREA NITROGEN 11 mg/dL (7-21); CALCIUM 8.2 mg/dL (8.4-10.5); GFR AFRICAN-AMERICAN > 60; GFR NON-AFRICAN AMERICAN > 60
--- NOTE | 2018-03-11 07:59 | CON ---
DATE: 03/10/2018 PULMONARY CRITICAL CARE CONSULT REFERRING PHYSICIAN: Georgina Ferrara MD REASON FOR CONSULT: Chronic lung disease, obstructive sleep apnea syndrome, metastatic pancreatic cancer. HISTORY OF PRESENT ILLNESS: This is a 67-year-old female well known to me from previous admission with multiple medical issue including chronic obstructive lung disease; suspected obstructive sleep apnea syndrome, noncompliant with the CPAP; hypertension; diabetes; history of alcohol abuse in the past; pancreatic cancer with metastatic disease to the liver and lungs; has a ductal obstruction requiring stent in the past, comes in with icterus eyes, weak and tired. No vomiting. Has severe abdominal pain. No dysuria. No leg pain or leg swelling. PAST MEDICAL HISTORY: Hypertension; diabetes; chronic lung disease; sleep apnea syndrome; history of pancreatic cancer with metastatic disease to liver, bones and lungs; and history of ductal stent. ALLERGIES: UNKNOWN. SOCIAL HISTORY: Recently stopped smoking. Denies any alcohol use, history of alcohol abuse. FAMILY HISTORY: Positive for depression, hypertension, and diabetes. MEDICATIONS: She is on IV fluid D5 half normal saline 150 mL/hour, DuoNeb every 2 hours and then p.r.n. and every 6 hours [id number]. She is on IV heparin. Also getting qdyipn-khrtasid-izscxtq 3000 units capsule three times a day. Metoprolol tartrate 25 mg daily, Lyrica 75 mg daily, cefepime 1 gm every 8 hours, morphine 4 mg every 3 hours p.r.n., Motrin 400 mg every 6 hours p.r.n., Protonix 40 mg daily, Reglan 5 mg three times a day, Singulair 10 mg daily, Solu-Medrol 20 mg every 12 hours, vancomycin 1 gm IV every 12 hours, Zestril 10 mg daily, and Zofran p.r.n. basis. REVIEW OF SYSTEMS: No headache, no rhinitis. Has abdominal pain. No chest pain. No dysuria. No leg pain or leg swelling. PHYSICAL EXAMINATION: GENERAL: Lying in the bed, has icterus eyes. VITAL SIGNS: Temperature is 98, heart rate is 88, respiratory rate is 26, blood pressure 159/98, pulse ox 100% on nasal cannula. HEENT: Moist mucous membrane. Crowded airway. NECK: Supple. No JVD. LUNGS: Have fair airflow with rhonchi. HEART: S1 and S2. ABDOMEN: Positive epigastric tenderness. EXTREMITIES: There is no edema. NEUROLOGIC: Awake and alert. Follows simple commands. LABORATORY DATA: Shows hemoglobin 10.7, hematocrit 31.3, WBC 16.3, platelet count is 396. INR 1.31. PTT is 82. VBG showed pH 7.39, pCO2 of 36, O2 is 218. Sodium 139, potassium 2.9, chloride 104, bicarbonate 23, BUN 5, creatinine 0.6, glucose 106, and calcium is 9.2. IMAGING STUDIES: Has a CT of the abdomen and pelvis done in ER, which shows pneumobilia with biliary stent, interval development of the biliary and pancreatic duct dilatation suggested stent malfunction, pancreatic head mass, and extensive peripancreatic and upper abdominal adenopathy consistent with . 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 The patient was seen by Dr. Loi Zamudio, Interventional Radiology and successfully internal and external biliary drainage is placed to the progression of tumor superiorly over groin at top of the previous stent. IMPRESSION AND PLAN: Metastatic pancreatic cancer which is a progressive disease involving the ductal system with obstructing of the previously placed stent, pancreatic cancer spread to the liver, bones and lungs. Other issue was a chronic lung disease, sleep apnea syndrome, diabetes, hypertension, history of alcohol abuse, has inferior vena cava clot. Case discussed with Dr. Ferrara in detail, also spoke to the patient, the patient's next of kin and also spoke to her daughter in detail. Also spoke about do not resuscitate and do not intubate, family in ongoing discussion. Continue antibiotics, covering cholangitis, inhaled bronchodilator. Keep head at 45 degrees. Refusing CPAP. Continue pain management. Gastric prophylaxis in the past. She has a gastrointestinal bleed after anticoagulation and anticoagulation was stopped, understanding risk and benefit ratio. We will follow H and H closely. The patient is also being followed by Gastrointestinal. Overall poor prognosis. We also request Oncology consult. Follow up labs in the morning. Thank you and we will follow with you. Linnea Stephen MD [facility] # [id number]
[2018-03-11 08:19] LABS: INR 1.57 (0.93-1.08); PROTHROMBIN TIME 18.2 SECONDS (9.4-12.5)
[2018-03-11 08:21] LABS: PARTIAL THROMBOPLASTIN TIME 256.4 Seconds (25.1-36.5)
--- NOTE | 2018-03-11 09:08 | CP.CCUPN ---
<Rao AyersLissy - Last Filed: 03/11/18 10:34> CCU Subjective - Physician Review Subjective (Free Text): Patient seen and examined at bedside in no acute distress. States she finally has an appetite and is ready to eat. Denies fever, chills, vomiting, diarrhea, chest pain, shortness of breath, cough. Currently pain has improved since overnight. CCU Objective - Vital Signs / Intake & Output Vital Signs (Last 4 hours): Vital Signs Pulse Resp BP Pulse Ox 03/11/18 06:00 83 21 148/89 95 03/11/18 05:50 83 20 92 L 03/11/18 05:40 82 18 97 03/11/18 05:30 85 22 100 03/11/18 05:20 88 26 H 72 L 03/11/18 05:10 86 26 H 99 Intake and Output (Last 8hrs): Intake & Output 03/10/18 03/11/18 03/11/18 22:59 06:59 14:59 Intake Total 1870 1650 Output Total 600 690 Balance 1270 960 Intake: IV 1850 1650 Right Subclavian 1850 1650 Oral 20 0 Output: Chest Tube Drainage 90 Right Lateral Chest 90 Urine 600 600 Urine, Voided 600 600 Stool 0 0 Other: # Voids Urine, Voided 3 # Bowel Movements 0 - Physical Exam Head: Positive for: Atraumatic, Normocephalic Pupils: Positive for: PERRL Extroacular Muscles: Positive for: EOMI Conjunctiva: Positive for: Icteric Mouth: Positive for: Dry Neck: Positive for: Normal Range of Motion Respiratory/Chest: Positive for: Clear to Auscultation. Negative for: Wheezes, Rhonchi Cardiovascular: Positive for: Regular Rate and Rhythm, Normal S1, S2 Abdomen: Positive for: Tenderness, Normal Bowel Sounds. Negative for: Distention, Guarding Upper Extremity: Positive for: Normal Inspection. Negative for: Cyanosis, Edema Lower Extremity: Positive for: Normal Inspection. Negative for: Edema, CALF TENDERNESS Neurological: Positive for: GCS=15, CN II-XII Intact Skin: Positive for: Warm, Dry. Negative for: Normal Color (Jaundice) Psychiatric: Positive for: Alert, Oriented x 3, Normal Insight, Normal Concentration - Medications Active Medications: Active Medications Generic Name Dose Route Start Last Admin Trade Name Freq PRN Reason Stop Dose Admin Albuterol/Ipratropium 3 ml 03/10/18 00:14 Duoneb 3 Mg/0.5 Mg (3 Ml) Ud IH Q2H PRN Shortness of Breath Albuterol/Ipratropium 3 ml 03/10/18 02:00 03/11/18 07:17 Duoneb 3 Mg/0.5 Mg (3 Ml) Ud IH Not Given [id number] BRITTNEY Cefepime HCl 1 gm in 100 mls @ 100 mls/hr 03/10/18 14:45 03/11/18 05:22 Maxipime 1gm IVPB 100 mls/hr Q8 BRITTNEY Administration Protocol Vancomycin HCl 1 gm in 250 mls @ 167 mls/hr 03/10/18 14:45 03/11/18 03:00 Vancomycin 1gm IVPB 167 mls/hr Q12H BRITTNEY Administration Protocol Dextrose/Sodium Chloride 1,000 mls @ 150 mls/hr 03/10/18 14:39 03/11/18 06:11 Dextrose 5%/0.9% Ns 1000 Ml IV 150 mls/hr .[id number] BRITTNEY Administration Heparin Sodium/Sodium Chloride 25,000 units in 250 mls @ 13.545 mls/hr 19:46 03/10/18 21:50 Heparin 38497 Units/250ml 1/2 Normal Saline IV 18 units/kg/hr .[id number] PRN 13.545 mls/hr ADJUST RATE PER PROTOCOL Administration Protocol 18 UNITS/KG/HR Ibuprofen 400 mg 03/09/18 23:24 Motrin Tab PO Q6H PRN Pain, Mild (1-3) Insulin Human Regular 0 units 03/10/18 07:30 03/10/18 21:56 Humulin R Med SC Not Given ACHS [facility] Protocol Lisinopril 10 mg 03/10/18 10:00 03/10/18 09:17 Zestril PO 10 mg DAILY BRITTNEY Administration Methylprednisolone 20 mg 03/10/18 00:30 03/10/18 21:53 Solu-Medrol IVP 20 mg Q12 BRITTNEY Administration Metoclopramide HCl 5 mg 03/10/18 10:00 03/10/18 17:02 Reglan PO 5 mg TID BRTITNEY Administration Metoprolol Tartrate 25 mg 03/10/18 10:00 03/10/18 09:18 Lopressor PO 25 mg DAILY BRITTNEY Administration Montelukast Sodium 10 mg 03/10/18 10:00 03/10/18 09:18 Singulair PO 10 mg DAILY BRITTNEY Administration Morphine Sulfate 4 mg 03/09/18 23:24 03/11/18 07:50 Morphine IVP 4 mg Q3H PRN Administration Pain, severe (8-10) Lipase/Protease/ 3,000 cap 03/10/18 10:00 03/10/18 17:02 Amylase [Katy Milligan 3, PO Not Given 000 Units Capsule] ( TID [facility] Home Med) Ondansetron HCl 4 mg 03/09/18 23:24 Zofran Inj IVP Q6H PRN Nausea/Vomiting Pantoprazole Sodium 40 mg 03/10/18 06:00 03/11/18 05:21 Protonix Ec Tab PO 40 mg 0600 BRITTNEY Administration Pregabalin 75 mg 03/10/18 10:00 03/10/18 09:18 Lyrica PO 75 mg DAILY BRITTNEY Administration - Patient Studies Lab Studies: Microbiology Studies 03/10/18 06:00 Blood Culture - Preliminary Blood NO GROWTH AFTER 24 HOURS 03/10/18 05:20 Blood Culture - Preliminary Blood NO GROWTH AFTER 24 HOURS Lab Studies 03/11/18 03/11/18 03/11/18 Range/Units 07:30 07:14 06:00 WBC (4.5-11.0) 10^3/ul RBC (3.5-6.1) 10^6/uL Hgb (12.0-16.0) g/dL Hct (36.0-48.0) % MCV (80.0-105.0) fl MCH (25.0-35.0) pg MCHC (31.0-37.0) g/dl RDW (11.5-14.5) % Plt Count (120.0-450.0) 10^3/uL MPV (7.0-11.0) fl Gran % (50.0-68.0) % Lymph % (Auto) (22.0-35.0) % [place] % (Auto) (1.0-6.0) % Eos % (Auto) (1.5-5.0) % Baso % (Auto) (0.0-3.0) % Gran # (1.4-6.5) Lymph # (Auto) (1.2-3.4) [place] # (Auto) (0.1-0.6) Eos # (Auto) (0.0-0.7) Baso # (Auto) (0.0-2.0) K/mm3 PT 18.2 H (9.4-12.5) SECONDS INR 1.57 H (0.93-1.08) APTT 256.4 H* (25.1-36.5) Seconds pO2 (30-55) mm/Hg VBG pH (7.32-7.43) VBG pCO2 (40-60) VBG HCO3 (21-28) mmol/l VBG Total CO2 (22-28) mmol.L VBG O2 Sat (Calc) (40-65) % VBG Base Excess (0.0-2.0) mmol/L VBG Potassium (3.6-5.2) mmol/L Sodium 138 (132-148) mmol/L Chloride 107 (98-107) mmol/L Glucose (65-105) mg/dl Lactate (0.7-2.1) mmol/L FiO2 % Potassium 3.7 (3.6-5.0) mmol/L Carbon Dioxide 20 L (21-33) mmol/L Anion Gap 15 (10-20) BUN 11 (7-21) mg/dL Creatinine 0.5 L (0.7-1.2) mg/dl Est GFR ( Amer) > 60 Est GFR (Non-Af Amer) > 60 POC Glucose (mg/dL) 253 H (65-110) mg/dL Random Glucose 298 H (70-110) mg/dL Calcium 8.2 L (8.4-10.5) mg/dL Phosphorus 2.9 (2.5-4.5) mg/dL Magnesium 1.6 L (1.7-2.2) mg/dL Total Bilirubin 13.2 H (0.2-1.3) mg/dL AST 86 H (14-36) U/L ALT 35 (7-56) U/L Alkaline Phosphatase 243 H (38-126) U/L Total Protein 7.0 (5.8-8.3) g/dL Albumin 2.7 L (3.0-4.8) g/dL Globulin 4.2 gm/dL Albumin/Globulin Ratio 0.7 L (1.1-1.8) Venous Blood Potassium (3.6-5.2) mmol/L Alcohol, Quantitative (0-10) mg/dL 03/11/18 03/10/18 03/10/18 Range/Units 06:00 21:33 17:00 WBC 19.9 H D (4.5-11.0) 10^3/ul RBC 3.42 L (3.5-6.1) 10^6/uL Hgb 8.8 L (12.0-16.0) g/dL Hct 26.5 L (36.0-48.0) % MCV 77.5 L (80.0-105.0) fl MCH 25.7 (25.0-35.0) pg MCHC 33.2 (31.0-37.0) g/dl RDW 20.2 H (11.5-14.5) % Plt Count 432 (120.0-450.0) 10^3/uL MPV 8.9 (7.0-11.0) fl Gran % 94.9 H (50.0-68.0) % Lymph % (Auto) 2.0 L (22.0-35.0) % Trego % (Auto) 3.1 (1.0-6.0) % Eos % (Auto) 0.0 L (1.5-5.0) % Baso % (Auto) 0.0 (0.0-3.0) % Gran # 18.85 H (1.4-6.5) Lymph # (Auto) 0.4 L (1.2-3.4) Treg[place] # (Auto) 0.6 (0.1-0.6) Eos # (Auto) 0.0 (0.0-0.7) Baso # (Auto) 0.00 (0.0-2.0) K/mm3 PT (9.4-12.5) SECONDS INR (0.93-1.08) APTT (25.1-36.5) Seconds pO2 218 H (30-55) mm/Hg VBG pH 7.39 (7.32-7.43) VBG pCO2 36.0 L (40-60) VBG HCO3 21.8 (21-28) mmol/l VBG Total CO2 22.9 (22-28) mmol.L VBG O2 Sat (Calc) 100.8 H (40-65) % VBG Base Excess -2.6 L (0.0-2.0) mmol/L VBG Potassium 3.6 (3.6-5.2) mmol/L Sodium 138.0 (132-148) mmol/L Chloride 110.0 H (98-107) mmol/L Glucose 152 H (65-105) mg/dl Lactate 1.2 (0.7-2.1) mmol/L FiO2 21.0 % Potassium (3.6-5.0) mmol/L Carbon Dioxide (21-33) mmol/L Anion Gap (10-20) BUN (7-21) mg/dL Creatinine (0.7-1.2) mg/dl Est GFR ( Amer) Est GFR (Non-Af Amer) POC Glucose (mg/dL) 106 (65-110) mg/dL Random Glucose (70-110) mg/dL Calcium (8.4-10.5) mg/dL Phosphorus (2.5-4.5) mg/dL Magnesium (1.7-2.2) mg/dL Total Bilirubin (0.2-1.3) mg/dL AST (14-36) U/L ALT (7-56) U/L Alkaline Phosphatase (38-126) U/L Total Protein (5.8-8.3) g/dL Albumin (3.0-4.8) g/dL Globulin gm/dL Albumin/Globulin Ratio (1.1-1.8) Venous Blood Potassium 3.6 (3.6-5.2) mmol/L Alcohol, Quantitative (0-10) mg/dL 03/10/18 03/10/18 03/10/18 Range/Units 16:45 13:48 11:45 WBC (4.5-11.0) 10^3/ul RBC (3.5-6.1) 10^6/uL Hgb (12.0-16.0) g/dL Hct (36.0-48.0) % MCV (80.0-105.0) fl MCH (25.0-35.0) pg MCHC (31.0-37.0) g/dl RDW (11.5-14.5) % Plt Count (120.0-450.0) 10^3/uL MPV (7.0-11.0) fl Gran % (50.0-68.0) % Lymph % (Auto) (22.0-35.0) % [place] % (Auto) (1.0-6.0) % Eos % (Auto) (1.5-5.0) % Baso % (Auto) (0.0-3.0) % Gran # (1.4-6.5) Lymph # (Auto) (1.2-3.4) Treg[place] # (Auto) (0.1-0.6) Eos # (Auto) (0.0-0.7) Baso # (Auto) (0.0-2.0) K/mm3 PT (9.4-12.5) SECONDS INR (0.93-1.08) APTT 82.8 H (25.1-36.5) Seconds pO2 (30-55) mm/Hg VBG pH (7.32-7.43) VBG pCO2 (40-60) VBG HCO3 (21-28) mmol/l VBG Total CO2 (22-28) mmol.L VBG O2 Sat (Calc) (40-65) % VBG Base Excess (0.0-2.0) mmol/L VBG Potassium (3.6-5.2) mmol/L Sodium (132-148) mmol/L Chloride (98-107) mmol/L Glucose (65-105) mg/dl Lactate (0.7-2.1) mmol/L FiO2 % Potassium (3.6-5.0) mmol/L Carbon Dioxide (21-33) mmol/L Anion Gap (10-20) BUN (7-21) mg/dL Creatinine (0.7-1.2) mg/dl Est GFR ( Amer) Est GFR (Non-Af Amer) POC Glucose (mg/dL) 134 H (65-110) mg/dL Random Glucose (70-110) mg/dL Calcium (8.4-10.5) mg/dL Phosphorus (2.5-4.5) mg/dL Magnesium (1.7-2.2) mg/dL Total Bilirubin (0.2-1.3) mg/dL AST (14-36) U/L ALT (7-56) U/L Alkaline Phosphatase (38-126) U/L Total Protein (5.8-8.3) g/dL Albumin (3.0-4.8) g/dL Globulin gm/dL Albumin/Globulin Ratio (1.1-1.8) Venous Blood Potassium (3.6-5.2) mmol/L Alcohol, Quantitative < 10 (0-10) mg/dL 03/10/18 Range/Units 11:02 WBC (4.5-11.0) 10^3/ul RBC (3.5-6.1) 10^6/uL Hgb (12.0-16.0) g/dL Hct (36.0-48.0) % MCV (80.0-105.0) fl MCH (25.0-35.0) pg MCHC (31.0-37.0) g/dl RDW (11.5-14.5) % Plt Count (120.0-450.0) 10^3/uL MPV (7.0-11.0) fl Gran % (50.0-68.0) % Lymph % (Auto) (22.0-35.0) % [place] % (Auto) (1.0-6.0) % Eos % (Auto) (1.5-5.0) % Baso % (Auto) (0.0-3.0) % Gran # (1.4-6.5) Lymph # (Auto) (1.2-3.4) [place] # (Auto) (0.1-0.6) Eos # (Auto) (0.0-0.7) Baso # (Auto) (0.0-2.0) K/mm3 PT (9.4-12.5) SECONDS INR (0.93-1.08) APTT (25.1-36.5) Seconds pO2 (30-55) mm/Hg VBG pH (7.32-7.43) VBG pCO2 (40-60) VBG HCO3 (21-28) mmol/l VBG Total CO2 (22-28) mmol.L VBG O2 Sat (Calc) (40-65) % VBG Base Excess (0.0-2.0) mmol/L VBG Potassium (3.6-5.2) mmol/L Sodium (132-148) mmol/L Chloride (98-107) mmol/L Glucose (65-105) mg/dl Lactate (0.7-2.1) mmol/L FiO2 % Potassium (3.6-5.0) mmol/L Carbon Dioxide (21-33) mmol/L Anion Gap (10-20) BUN (7-21) mg/dL Creatinine (0.7-1.2) mg/dl Est GFR ( Amer) Est GFR (Non-Af Amer) POC Glucose (mg/dL) 92 (65-110) mg/dL Random Glucose (70-110) mg/dL Calcium (8.4-10.5) mg/dL Phosphorus (2.5-4.5) mg/dL Magnesium (1.7-2.2) mg/dL Total Bilirubin (0.2-1.3) mg/dL AST (14-36) U/L ALT (7-56) U/L Alkaline Phosphatase (38-126) U/L Total Protein (5.8-8.3) g/dL Albumin (3.0-4.8) g/dL Globulin gm/dL Albumin/Globulin Ratio (1.1-1.8) Venous Blood Potassium (3.6-5.2) mmol/L Alcohol, Quantitative (0-10) mg/dL Laboratory Results - last 24 hr 03/10/18 03/10/18 03/10/18 11:02 11:45 13:48 WBC RBC Hgb Hct MCV MCH MCHC RDW Plt Count MPV Gran % Lymph % (Auto) [place] % (Auto) Eos % (Auto) Baso % (Auto) Gran # Lymph # (Auto) [place] # (Auto) Eos # (Auto) Baso # (Auto) PT INR APTT 82.8 H pO2 VBG pH VBG pCO2 VBG HCO3 VBG Total CO2 VBG O2 Sat (Calc) VBG Base Excess VBG Potassium Sodium Chloride Glucose Lactate FiO2 Potassium Carbon Dioxide Anion Gap BUN Creatinine Est GFR ( Amer) Est GFR (Non-Af Amer) POC Glucose (mg/dL) 92 Random Glucose Calcium Phosphorus Magnesium Total Bilirubin AST ALT Alkaline Phosphatase Total Protein Albumin Globulin Albumin/Globulin Ratio Venous Blood Potassium Alcohol, Quantitative < 10 05/03/18 05/03/18 05/03/18 16:45 17:00 21:33 WBC RBC Hgb Hct MCV MCH MCHC RDW Plt Count MPV Gran % Lymph % (Auto) [place] % (Auto) Eos % (Auto) Baso % (Auto) Gran # Lymph # (Auto) [place] # (Auto) Eos # (Auto) Baso # (Auto) PT INR APTT pO2 218 H VBG pH 7.39 VBG pCO2 36.0 L VBG HCO3 21.8 VBG Total CO2 22.9 VBG O2 Sat (Calc) 100.8 H VBG Base Excess -2.6 L VBG Potassium 3.6 Sodium 138.0 Chloride 110.0 H Glucose 152 H Lactate 1.2 FiO2 21.0 Potassium Carbon Dioxide Anion Gap BUN Creatinine Est GFR ( Amer) Est GFR (Non-Af Amer) POC Glucose (mg/dL) 134 H 106 Random Glucose Calcium Phosphorus Magnesium Total Bilirubin AST ALT Alkaline Phosphatase Total Protein Albumin Globulin Albumin/Globulin Ratio Venous Blood Potassium 3.6 Alcohol, Quantitative 03/11/18 03/11/18 03/11/18 06:00 06:00 07:14 WBC 19.9 H D RBC 3.42 L Hgb 8.8 L Hct 26.5 L MCV 77.5 L MCH 25.7 MCHC 33.2 RDW 20.2 H Plt Count 432 MPV 8.9 Gran % 94.9 H Lymph % (Auto) 2.0 L [place] % (Auto) 3.1 Eos % (Auto) 0.0 L Baso % (Auto) 0.0 Gran # 18.85 H Lymph # (Auto) 0.4 L [place] # (Auto) 0.6 Eos # (Auto) 0.0 Baso # (Auto) 0.00 PT INR APTT pO2 VBG pH VBG pCO2 VBG HCO3 VBG Total CO2 VBG O2 Sat (Calc) VBG Base Excess VBG Potassium Sodium 138 Chloride 107 Glucose Lactate FiO2 Potassium 3.7 Carbon Dioxide 20 L Anion Gap 15 BUN 11 Creatinine 0.5 L Est GFR ( Amer) > 60 Est GFR (Non-Af Amer) > 60 POC Glucose (mg/dL) 253 H Random Glucose 298 H Calcium 8.2 L Phosphorus 2.9 Magnesium 1.6 L Total Bilirubin 13.2 H AST 86 H ALT 35 Alkaline Phosphatase 243 H Total Protein 7.0 Albumin 2.7 L Globulin 4.2 Albumin/Globulin Ratio 0.7 L Venous Blood Potassium Alcohol, Quantitative 03/11/18 07:30 WBC RBC Hgb Hct MCV MCH MCHC RDW Plt Count MPV Gran % Lymph % (Auto) [place] % (Auto) Eos % (Auto) Baso % (Auto) Gran # Lymph # (Auto) [place] # (Auto) Eos # (Auto) Baso # (Auto) PT 18.2 H INR 1.57 H APTT 256.4 H* pO2 VBG pH VBG pCO2 VBG HCO3 VBG Total CO2 VBG O2 Sat (Calc) VBG Base Excess VBG Potassium Sodium Chloride Glucose Lactate FiO2 Potassium Carbon Dioxide Anion Gap BUN Creatinine Est GFR ( Amer) Est GFR (Non-Af Amer) POC Glucose (mg/dL) Random Glucose Calcium Phosphorus Magnesium Total Bilirubin AST ALT Alkaline Phosphatase Total Protein Albumin Globulin Albumin/Globulin Ratio Venous Blood Potassium Alcohol, Quantitative EKG/Cardiology Studies: Cardiology / EKG Studies 03/10/18 23:41 EKG [ELECTROCARDIOGRAM] Stat Comment: Reason For Exam: EYE PROBLEM Fingerstick Blood Sugar Results: 144 Review of Systems - Constitutional Constitutional: absent: Fever, Chills, Sweats, Weakness - EENT Eyes: absent: Change in Vision - Cardiovascular Cardiovascular: absent: Chest Pain, Dyspnea - Respiratory Respiratory: absent: Cough, Dyspnea - Gastrointestinal Gastrointestinal: Abdominal Pain. absent: Diarrhea, Vomiting - Genitourinary Genitourinary: absent: Dysuria - Musculoskeletal Musculoskeletal: Back Pain (baseline since diagnosis of pancreatic cancer) - Neurological Neurological: Dizziness, Numbness - Psychiatric Psychiatric: absent: Anxiety, Confusion - Endocrine Endocrine: Fatigue Critical Care Progress Note - Nutrition Nutrition: Nutrition Category Date Time Status NPO Diet [DIET] Diets 03/10/18 Breakfast Ordered Assessment/Plan - Assessment and Plan (Free Text) Assessment: Patient is a 67 year old female with a history of COPD, sleep apnea, colon resection, TIA, pancreatic cancer with hepatic and lung mets who is presenting with complaints of jaundice found to have mets to liver and lung as well as possible stenosis of previously placed biliary stent and 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 IR Will evaluate patient in future for placement of stent extension to common hepatic duct. GI -GI on consult -Monitor liver and biliary enzymes -Monitor CBC for overt GI bleed considering past history -Continue with GI prophylaxis -Continue home Pancrease enzymes 3000 PO TID -Will start patient on clear liquid diet and advance as tolerated Endo: -Maintain euglycemia with glucose at 140 -160 -Maintain normothermia -Continue ISS Medium with Accuchecks -Banana Bag Renal: -Monitor electrolytes; replete as needed -Continue to monitor renal function -Maintain euvolemia ID: -F/u Blood cultures -Monitor leukocytosis and other SIRS criteria right now -Cefepime discontinued -Zosyn administered #day 3 -ID on consult Oncological -Will restart chemotherapy as outpatient Heme -SCDs for DVT prophylaxis -Monitor H&H after heparin drip <Juan Chahal - Last Filed: 03/11/18 12:24> CCU Objective - Vital Signs / Intake & Output Vital Signs (Last 4 hours): Vital Signs Pulse BP 03/11/18 09:33 85 178/92 H Intake and Output (Last 8hrs): Intake & Output 03/10/18 03/11/18 03/11/18 22:59 06:59 14:59 Intake Total 1870 1650 Output Total 600 690 Balance 1270 960 Intake: IV 1850 1650 Right Subclavian 1850 1650 Oral 20 0 Output: Chest Tube Drainage 90 Right Lateral Chest 90 Urine 600 600 Urine, Voided 600 600 Stool 0 0 Other: # Voids Urine, Voided 3 # Bowel Movements 0 - Medications Active Medications: Active Medications Generic Name Dose Route Start Last Admin Trade Name Freq PRN Reason Stop Dose Admin Albuterol/Ipratropium 3 ml 03/10/18 00:14 Duoneb 3 Mg/0.5 Mg (3 Ml) Ud IH Q2H PRN Shortness of Breath Albuterol/Ipratropium 3 ml 03/10/18 02:00 03/11/18 07:17 Duoneb 3 Mg/0.5 Mg (3 Ml) Ud IH Not Given [id number] BRITTNEY Vancomycin HCl 1 gm in 250 mls @ 167 mls/hr 03/10/18 14:45 03/11/18 03:00 Vancomycin 1gm IVPB 167 mls/hr Q12H BRITTNEY Administration Protocol Ibuprofen 400 mg 03/09/18 23:24 Motrin Tab PO Q6H PRN Pain, Mild (1-3) Insulin Human Regular 0 units 03/10/18 07:30 03/11/18 07:30 Humulin R Med SC Not Given ACHS [facility] Protocol Lisinopril 10 mg 03/10/18 10:00 03/11/18 09:33 Zestril PO 10 mg DAILY BRITTNEY Administration Methylprednisolone 20 mg 03/10/18 00:30 03/11/18 09:34 Solu-Medrol IVP 20 mg Q12 BRITTNEY Administration Metoclopramide HCl 5 mg 03/10/18 10:00 03/11/18 09:33 Reglan PO 5 mg TID BRITTNEY Administration Metoprolol Tartrate 25 mg 03/10/18 10:00 03/11/18 09:33 Lopressor PO 25 mg DAILY [facility] Administration Montelukast Sodium 10 mg 03/10/18 10:00 03/11/18 09:33 Singulair PO 10 mg DAILY BRITTNEY Administration Morphine Sulfate 4 mg 03/09/18 23:24 03/11/18 10:22 Morphine IVP 4 mg Q3H PRN Administration Pain, severe (8-10) Lipase/Protease/ 3,000 cap 03/10/18 10:00 03/10/18 17:02 Amylase [Creon Dr 3, PO Not Given 000 Units Capsule] ( TID [facility] Med) Ondansetron HCl 4 mg 03/09/18 23:24 Zofran Inj IVP Q6H PRN Nausea/Vomiting Pantoprazole Sodium 40 mg 03/10/18 06:00 03/11/18 05:21 Protonix Ec Tab PO 40 mg 0600 BRITTNEY Administration Pregabalin 75 mg 03/10/18 10:00 03/11/18 09:33 Lyrica PO 75 mg DAILY [facility] Administration - Patient Studies Lab Studies: Microbiology Studies 03/10/18 05:20 S.aureus & Coag-Neg Staph PNA FISH - Final Blood Blood Culture - Preliminary Gram Positive Cocci Gram Stain - Final 03/10/18 06:00 Blood Culture - Preliminary Blood NO GROWTH AFTER 24 HOURS Lab Studies 03/11/18 03/11/18 03/11/18 Range/Units 10:59 07:30 07:14 WBC (4.5-11.0) 10^3/ul RBC (3.5-6.1) 10^6/uL Hgb (12.0-16.0) g/dL Hct (36.0-48.0) % MCV (80.0-105.0) fl MCH (25.0-35.0) pg MCHC (31.0-37.0) g/dl RDW (11.5-14.5) % Plt Count (120.0-450.0) 10^3/uL MPV (7.0-11.0) fl Gran % (50.0-68.0) % Lymph % (Auto) (22.0-35.0) % [place] % (Auto) (1.0-6.0) % Eos % (Auto) (1.5-5.0) % Baso % (Auto) (0.0-3.0) % Gran # (1.4-6.5) Lymph # (Auto) (1.2-3.4) [place] # (Auto) (0.1-0.6) Eos # (Auto) (0.0-0.7) Baso # (Auto) (0.0-2.0) K/mm3 PT 18.2 H (9.4-12.5) SECONDS INR 1.57 H (0.93-1.08) APTT 256.4 H* (25.1-36.5) Seconds pO2 (30-55) mm/Hg VBG pH (7.32-7.43) VBG pCO2 (40-60) VBG HCO3 (21-28) mmol/l VBG Total CO2 (22-28) mmol.L VBG O2 Sat (Calc) (40-65) % VBG Base Excess (0.0-2.0) mmol/L VBG Potassium (3.6-5.2) mmol/L Sodium (132-148) mmol/L Chloride (98-107) mmol/L Glucose (65-105) mg/dl Lactate (0.7-2.1) mmol/L FiO2 % Potassium (3.6-5.0) mmol/L Carbon Dioxide (21-33) mmol/L Anion Gap (10-20) BUN (7-21) mg/dL Creatinine (0.7-1.2) mg/dl Est GFR ( Amer) Est GFR (Non-Af Amer) POC Glucose (mg/dL) 285 H 253 H (65-110) mg/dL Random Glucose (70-110) mg/dL Calcium (8.4-10.5) mg/dL Phosphorus (2.5-4.5) mg/dL Magnesium (1.7-2.2) mg/dL Total Bilirubin (0.2-1.3) mg/dL AST (14-36) U/L ALT (7-56) U/L Alkaline Phosphatase (38-126) U/L Total Protein (5.8-8.3) g/dL Albumin (3.0-4.8) g/dL Globulin gm/dL Albumin/Globulin Ratio (1.1-1.8) Venous Blood Potassium (3.6-5.2) mmol/L Alcohol, Quantitative (0-10) mg/dL 03/11/18 03/11/18 03/10/18 Range/Units 06:00 06:00 21:33 WBC 19.9 H D (4.5-11.0) 10^3/ul RBC 3.42 L (3.5-6.1) 10^6/uL Hgb 8.8 L (12.0-16.0) g/dL Hct 26.5 L (36.0-48.0) % MCV 77.5 L (80.0-105.0) fl MCH 25.7 (25.0-35.0) pg MCHC 33.2 (31.0-37.0) g/dl RDW 20.2 H (11.5-14.5) % Plt Count 432 (120.0-450.0) 10^3/uL MPV 8.9 (7.0-11.0) fl Gran % 94.9 H (50.0-68.0) % Lymph % (Auto) 2.0 L (22.0-35.0) % Treg[place] % (Auto) 3.1 (1.0-6.0) % Eos % (Auto) 0.0 L (1.5-5.0) % Baso % (Auto) 0.0 (0.0-3.0) % Gran # 18.85 H (1.4-6.5) Lymph # (Auto) 0.4 L (1.2-3.4) Treg[place] # (Auto) 0.6 (0.1-0.6) Eos # (Auto) 0.0 (0.0-0.7) Baso # (Auto) 0.00 (0.0-2.0) K/mm3 PT (9.4-12.5) SECONDS INR (0.93-1.08) APTT (25.1-36.5) Seconds pO2 (30-55) mm/Hg VBG pH (7.32-7.43) VBG pCO2 (40-60) VBG HCO3 (21-28) mmol/l VBG Total CO2 (22-28) mmol.L VBG O2 Sat (Calc) (40-65) % VBG Base Excess (0.0-2.0) mmol/L VBG Potassium (3.6-5.2) mmol/L Sodium 138 (132-148) mmol/L Chloride 107 (98-107) mmol/L Glucose (65-105) mg/dl Lactate (0.7-2.1) mmol/L FiO2 % Potassium 3.7 (3.6-5.0) mmol/L Carbon Dioxide 20 L (21-33) mmol/L Anion Gap 15 (10-20) BUN 11 (7-21) mg/dL Creatinine 0.5 L (0.7-1.2) mg/dl Est GFR ( Amer) > 60 Est GFR (Non-Af Amer) > 60 POC Glucose (mg/dL) 106 (65-110) mg/dL Random Glucose 298 H (70-110) mg/dL Calcium 8.2 L (8.4-10.5) mg/dL Phosphorus 2.9 (2.5-4.5) mg/dL Magnesium 1.6 L (1.7-2.2) mg/dL Total Bilirubin 13.2 H (0.2-1.3) mg/dL AST 86 H (14-36) U/L ALT 35 (7-56) U/L Alkaline Phosphatase 243 H (38-126) U/L Total Protein 7.0 (5.8-8.3) g/dL Albumin 2.7 L (3.0-4.8) g/dL Globulin 4.2 gm/dL Albumin/Globulin Ratio 0.7 L (1.1-1.8) Venous Blood Potassium (3.6-5.2) mmol/L Alcohol, Quantitative (0-10) mg/dL 03/10/18 03/10/18 03/10/18 Range/Units 17:00 16:45 13:48 WBC (4.5-11.0) 10^3/ul RBC (3.5-6.1) 10^6/uL Hgb (12.0-16.0) g/dL Hct (36.0-48.0) % MCV (80.0-105.0) fl MCH (25.0-35.0) pg MCHC (31.0-37.0) g/dl RDW (11.5-14.5) % Plt Count (120.0-450.0) 10^3/uL MPV (7.0-11.0) fl Gran % (50.0-68.0) % Lymph % (Auto) (22.0-35.0) % Trego % (Auto) (1.0-6.0) % Eos % (Auto) (1.5-5.0) % Baso % (Auto) (0.0-3.0) % Gran # (1.4-6.5) Lymph # (Auto) (1.2-3.4) Trego # (Auto) (0.1-0.6) Eos # (Auto) (0.0-0.7) Baso # (Auto) (0.0-2.0) K/mm3 PT (9.4-12.5) SECONDS INR (0.93-1.08) APTT (25.1-36.5) Seconds pO2 218 H (30-55) mm/Hg VBG pH 7.39 (7.32-7.43) VBG pCO2 36.0 L (40-60) VBG HCO3 21.8 (21-28) mmol/l VBG Total CO2 22.9 (22-28) mmol.L VBG O2 Sat (Calc) 100.8 H (40-65) % VBG Base Excess -2.6 L (0.0-2.0) mmol/L VBG Potassium 3.6 (3.6-5.2) mmol/L Sodium 138.0 (132-148) mmol/L Chloride 110.0 H (98-107) mmol/L Glucose 152 H (65-105) mg/dl Lactate 1.2 (0.7-2.1) mmol/L FiO2 21.0 % Potassium (3.6-5.0) mmol/L Carbon Dioxide (21-33) mmol/L Anion Gap (10-20) BUN (7-21) mg/dL Creatinine (0.7-1.2) mg/dl Est GFR ( Amer) Est GFR (Non-Af Amer) POC Glucose (mg/dL) 134 H (65-110) mg/dL Random Glucose (70-110) mg/dL Calcium (8.4-10.5) mg/dL Phosphorus (2.5-4.5) mg/dL Magnesium (1.7-2.2) mg/dL Total Bilirubin (0.2-1.3) mg/dL AST (14-36) U/L ALT (7-56) U/L Alkaline Phosphatase (38-126) U/L Total Protein (5.8-8.3) g/dL Albumin (3.0-4.8) g/dL Globulin gm/dL Albumin/Globulin Ratio (1.1-1.8) Venous Blood Potassium 3.6 (3.6-5.2) mmol/L Alcohol, Quantitative < 10 (0-10) mg/dL Laboratory Results - last 24 hr 03/10/18 03/10/18 03/10/18 13:48 16:45 17:00 WBC RBC Hgb Hct MCV MCH MCHC RDW Plt Count MPV Gran % Lymph % (Auto) [place] % (Auto) Eos % (Auto) Baso % (Auto) Gran # Lymph # (Auto) [place] # (Auto) Eos # (Auto) Baso # (Auto) PT INR APTT pO2 218 H VBG pH 7.39 VBG pCO2 36.0 L VBG HCO3 21.8 VBG Total CO2 22.9 VBG O2 Sat (Calc) 100.8 H VBG Base Excess -2.6 L VBG Potassium 3.6 Sodium 138.0 Chloride 110.0 H Glucose 152 H Lactate 1.2 FiO2 21.0 Potassium Carbon Dioxide Anion Gap BUN Creatinine Est GFR ( Amer) Est GFR (Non-Af Amer) POC Glucose (mg/dL) 134 H Random Glucose Calcium Phosphorus Magnesium Total Bilirubin AST ALT Alkaline Phosphatase Total Protein Albumin Globulin Albumin/Globulin Ratio Venous Blood Potassium 3.6 Alcohol, Quantitative < 10 03/10/18 03/11/18 03/11/18 21:33 06:00 06:00 WBC 19.9 H D RBC 3.42 L Hgb 8.8 L Hct 26.5 L MCV 77.5 L MCH 25.7 MCHC 33.2 RDW 20.2 H Plt Count 432 MPV 8.9 Gran % 94.9 H Lymph % (Auto) 2.0 L [place] % (Auto) 3.1 Eos % (Auto) 0.0 L Baso % (Auto) 0.0 Gran # 18.85 H Lymph # (Auto) 0.4 L [place] # (Auto) 0.6 Eos # (Auto) 0.0 Baso # (Auto) 0.00 PT INR APTT pO2 VBG pH VBG pCO2 VBG HCO3 VBG Total CO2 VBG O2 Sat (Calc) VBG Base Excess VBG Potassium Sodium 138 Chloride 107 Glucose Lactate FiO2 Potassium 3.7 Carbon Dioxide 20 L Anion Gap 15 BUN 11 Creatinine 0.5 L Est GFR ( Amer) > 60 Est GFR (Non-Af Amer) > 60 POC Glucose (mg/dL) 106 Random Glucose 298 H Calcium 8.2 L Phosphorus 2.9 Magnesium 1.6 L Total Bilirubin 13.2 H AST 86 H ALT 35 Alkaline Phosphatase 243 H Total Protein 7.0 Albumin 2.7 L Globulin 4.2 Albumin/Globulin Ratio 0.7 L Venous Blood Potassium Alcohol, Quantitative 03/11/18 03/11/18 03/11/18 07:14 07:30 10:59 WBC RBC Hgb Hct MCV MCH MCHC RDW Plt Count MPV Gran % Lymph % (Auto) [place] % (Auto) Eos % (Auto) Baso % (Auto) Gran # Lymph # (Auto) [place] # (Auto) Eos # (Auto) Baso # (Auto) PT 18.2 H INR 1.57 H APTT 256.4 H* pO2 VBG pH VBG pCO2 VBG HCO3 VBG Total CO2 VBG O2 Sat (Calc) VBG Base Excess VBG Potassium Sodium Chloride Glucose Lactate FiO2 Potassium Carbon Dioxide Anion Gap BUN Creatinine Est GFR ( Amer) Est GFR (Non-Af Amer) POC Glucose (mg/dL) 253 H 285 H Random Glucose Calcium Phosphorus Magnesium Total Bilirubin AST ALT Alkaline Phosphatase Total Protein Albumin Globulin Albumin/Globulin Ratio Venous Blood Potassium Alcohol, Quantitative EKG/Cardiology Studies: Cardiology / EKG Studies 03/10/18 23:41 EKG [ELECTROCARDIOGRAM] Stat Comment: Reason For Exam: EYE PROBLEM Critical Care Progress Note - Nutrition Nutrition: Nutrition Category Date Time Status Liquid Diet [DIET] Diets 03/11/18 Breakfast Ordered Assessment/Plan - Assessment and Plan (Free Text) Plan: Patient seen and examined, with resident, on rounds agree with note with following additions/exceptions: Patient is 67yo female with PMhx of Pancreatic Ca with mets, admitted with restenosis biliary stent and possible IVC thrombus, which is likely not an IVC thrombus as per radiology. Currrently afebrile, HD stable, comfortable, heparin drip discontinued. Doing well overall. Denies abd pain, fever, chills, chest pain, SOB. Ascending Cholagitis Obstructive Jaundice Sepsis Pancreatic Ca with Mets Recommend: - supp o2 as needed - IVF fluids - clear liquid diet - ID consult - haider Callahan - follow up cultures, Procal - monitor HH, repeat CBC - DC heparin, unlikely to have IVC thrombus as per radiology - Pain control - GI ppx - DVT ppx - Stable, monitor in ICU
[2018-03-11] MEDS ORDERED: Piperacillin/Tazobact 3.375 gm 100 ML IVPB STA (09:29)
[2018-03-11] MEDS: MethylPREDNISolone 40 mg Vial IVP SCH (09:34)
--- NOTE | 2018-03-11 11:10 | CP.PCM.PN ---
Subjective - Date & Time of Evaluation Date of Evaluation: 03/11/18 Time of Evaluation: 09:00 - Subjective Subjective: [id number] Parker's service Patient seen and examined at bedside. No acute distress. Patient is sitting in chair comfortably. Yesterday patient had percutaneous drain placed yesterday. Patient states that since placement of the drain her abd pain has improved. Patient denies fever, chill, n/v, sob, chest pain. Objective - Vital Signs/Intake and Output Vital Signs (last 24 hours): Temp Pulse Resp BP Pulse Ox 98.1 F 85 21 178/92 H 95 03/10/18 00:34 03/11/18 09:33 03/11/18 06:00 03/11/18 09:33 03/11/18 06:00 Intake and Output: 03/11/18 03/11/18 06:59 18:59 Intake Total 1650 Output Total 690 Balance 960 - Medications Medications: Current Medications Albuterol/Ipratropium (Duoneb 3 Mg/0.5 Mg (3 Ml) Ud) 3 ml IH Q2H PRN PRN Reason: Shortness of Breath Albuterol/Ipratropium (Duoneb 3 Mg/0.5 Mg (3 Ml) Ud) 3 ml IH [id number] [facility] Last Admin: 03/11/18 07:17 Dose: Not Given Vancomycin HCl (Vancomycin 1gm) 1 gm in 250 mls @ 167 mls/hr IVPB Q12H [facility] PRN Reason: Protocol Last Admin: 03/11/18 03:00 Dose: 167 mls/hr Ibuprofen (Motrin Tab) 400 mg PO Q6H PRN PRN Reason: Pain, Mild (1-3) Insulin Human Regular (Humulin R Med) 0 units SC ACHS [facility] PRN Reason: Protocol Last Admin: 03/11/18 07:30 Dose: Not Given Lisinopril (Zestril) 10 mg PO DAILY [facility] Last Admin: 03/11/18 09:33 Dose: 10 mg Methylprednisolone (Solu-Medrol) 20 mg IVP Q12 [facility] Last Admin: 03/11/18 09:34 Dose: 20 mg Metoclopramide HCl (Reglan) 5 mg PO TID [facility] Last Admin: 03/11/18 09:33 Dose: 5 mg Metoprolol Tartrate (Lopressor) 25 mg PO DAILY [facility] Last Admin: 03/11/18 09:33 Dose: 25 mg Montelukast Sodium (Singulair) 10 mg PO DAILY [facility] Last Admin: 03/11/18 09:33 Dose: 10 mg Morphine Sulfate (Morphine) 4 mg IVP Q3H PRN PRN Reason: Pain, severe (8-10) Last Admin: 03/11/18 10:22 Dose: 4 mg Lipase/Protease/Amylase [Creon Dr 3, 000 Units Capsule] ( Home Med) 3,000 cap PO TID [facility] Last Admin: 03/10/18 17:02 Dose: Not Given Ondansetron HCl (Zofran Inj) 4 mg IVP Q6H PRN PRN Reason: Nausea/Vomiting Pantoprazole Sodium (Protonix Ec Tab) 40 mg PO 0600 [facility] Last Admin: 03/11/18 05:21 Dose: 40 mg Pregabalin (Lyrica) 75 mg PO DAILY [facility] Last Admin: 03/11/18 09:33 Dose: 75 mg - Labs Labs: 03/11/18 06:00 03/11/18 06:00 PT 18.2 SECONDS (9.4-12.5) H 03/11/18 07:30 INR 1.57 (0.93-1.08) H 03/11/18 07:30 APTT 256.4 Seconds (25.1-36.5) H* 03/11/18 07:30 - Constitutional Appears: Well, No Acute Distress - Head Exam Head Exam: ATRAUMATIC, NORMOCEPHALIC - Eye Exam Eye Exam: EOMI, Normal appearance - ENT Exam ENT Exam: Mucous Membranes Moist - Respiratory Exam Respiratory Exam: Clear to Ausculation Bilateral, NORMAL BREATHING PATTERN. absent: Rhonchi, Wheezes, Respiratory Distress - Cardiovascular Exam Cardiovascular Exam: REGULAR RHYTHM, +S1, +S2. absent: Bradycardia, Tachycardia , Murmur - GI/Abdominal Exam GI & Abdominal Exam: Soft, Normal Bowel Sounds. absent: Distended, Firm, Guarding, Tenderness - Extremities Exam Extremities Exam: Normal Inspection. absent: Pedal Edema, Tenderness - Neurological Exam Neurological Exam: Alert, Awake, Oriented x3 - Skin Skin Exam: Dry, Intact, Normal Color, Warm Assessment and Plan - Assessment and Plan (Free Text) Assessment: 67 year old female with a history of HTN, DM II, COPD, Sleep apnea, colon resection, TIA & Pancreatic Cancer w/ mets (last chemotherapy on early 12/2017) presents with jaundice and found to have obstructing stent s/p percutaneous stent Plan: CT Abd shows possible obscurity and obstruction of biliary stent that was previously placed Patient is also found to have a large IVC thrombus and was started on therapeutic anticoagulation with a heparin drip. Bedside US did not show thrombus, heparin drip was stopped percutaneous drain was placed by IR total bilirubin improved from 14.9 to 13.2 IR was consulted patient is on Morphine adn ultram for pain Motrin was stopped due to drop in Hgb continue to monitor hgb it decreased to 8.8 PTT is very elevated due to heparin drip, consider possible bleed elevated WBC, patient is on abx, ID is consulted Continue home Pancrease enzymes 3000 PO TID Will consult GI, Dr. Merchant, who has previously seen her Case reviewed and discussed with Dr. Parker
--- NOTE | 2018-03-11 14:10 | CP.PCM.PN ---
Subjective - Date & Time of Evaluation Date of Evaluation: 03/11/18 Time of Evaluation: 09:40 - Subjective Subjective: Seen and examined at the bedside earlier today, patient status post internal/ external biliary drain placement, bilious fluid noted. Patient endorses she is feeling slightly better today. Still has abdominal discomfort but improved. Denies any nausea, vomiting, fever or chills. Had a small bowel movement, no blood noted. Objective - Vital Signs/Intake and Output Vital Signs (last 24 hours): Temp Pulse Resp BP Pulse Ox 98.1 F 85 21 178/92 H 95 03/10/18 00:34 03/11/18 09:33 03/11/18 06:00 03/11/18 09:33 03/11/18 06:00 Intake and Output: 03/11/18 03/11/18 06:59 18:59 Intake Total 1650 Output Total 690 Balance 960 - Medications Medications: Current Medications Albuterol/Ipratropium (Duoneb 3 Mg/0.5 Mg (3 Ml) Ud) 3 ml IH Q2H PRN PRN Reason: Shortness of Breath Albuterol/Ipratropium (Duoneb 3 Mg/0.5 Mg (3 Ml) Ud) 3 ml IH [id number] [facility] Last Admin: 03/11/18 07:17 Dose: Not Given Vancomycin HCl (Vancomycin 1gm) 1 gm in 250 mls @ 167 mls/hr IVPB Q12H [facility] PRN Reason: Protocol Last Admin: 03/11/18 03:00 Dose: 167 mls/hr Ibuprofen (Motrin Tab) 400 mg PO Q6H PRN PRN Reason: Pain, Mild (1-3) Insulin Human Regular (Humulin R Med) 0 units SC ACHS [facility] PRN Reason: Protocol Last Admin: 03/11/18 07:30 Dose: Not Given Lisinopril (Zestril) 10 mg PO DAILY [facility] Last Admin: 03/11/18 09:33 Dose: 10 mg Methylprednisolone (Solu-Medrol) 20 mg IVP Q12 [facility] Last Admin: 03/11/18 09:34 Dose: 20 mg Metoclopramide HCl (Reglan) 5 mg PO TID [facility] Last Admin: 03/11/18 09:33 Dose: 5 mg Metoprolol Tartrate (Lopressor) 25 mg PO DAILY [facility] Last Admin: 03/11/18 09:33 Dose: 25 mg Montelukast Sodium (Singulair) 10 mg PO DAILY [facility] Last Admin: 03/11/18 09:33 Dose: 10 mg Morphine Sulfate (Morphine) 4 mg IVP Q3H PRN PRN Reason: Pain, severe (8-10) Last Admin: 03/11/18 10:22 Dose: 4 mg Lipase/Protease/Amylase [Creon Dr 3, 000 Units Capsule] ( Home Med) 3,000 cap PO TID [facility] Last Admin: 03/10/18 17:02 Dose: Not Given Ondansetron HCl (Zofran Inj) 4 mg IVP Q6H PRN PRN Reason: Nausea/Vomiting Pantoprazole Sodium (Protonix Ec Tab) 40 mg PO 0600 [facility] Last Admin: 03/11/18 05:21 Dose: 40 mg Pregabalin (Lyrica) 75 mg PO DAILY [facility] Last Admin: 03/11/18 09:33 Dose: 75 mg - Labs Labs: 03/11/18 06:00 03/11/18 06:00 PT 18.2 SECONDS (9.4-12.5) H 03/11/18 07:30 INR 1.57 (0.93-1.08) H 03/11/18 07:30 APTT 256.4 Seconds (25.1-36.5) H* 03/11/18 07:30 - Constitutional Appears: No Acute Distress - Head Exam Head Exam: NORMOCEPHALIC - Eye Exam Eye Exam: Scleral icterus - ENT Exam ENT Exam: Mucous Membranes Moist - Respiratory Exam Respiratory Exam: NORMAL BREATHING PATTERN. absent: Respiratory Distress - Cardiovascular Exam Cardiovascular Exam: +S1, +S2 - GI/Abdominal Exam GI & Abdominal Exam: Soft, Normal Bowel Sounds. absent: Guarding, Tenderness, Rebound Additional comments: right-sided biliary drain with bilious fluid - Extremities Exam Extremities Exam: absent: Calf Tenderness, Pedal Edema - Neurological Exam Neurological Exam: Alert, Awake, Oriented x3 Assessment and Plan - Assessment and Plan (Free Text) Assessment: Assessment: Pancreatic cancer with metastasis, status post biliary stent, now obstructed, S/ P internal/external biliary drain placement on 03/10/2018 Jaundice secondary to biliary stent obstruction Elevated LFTs secondary to above Leukocystosis Inferior vena cava thrombus Chronic hepatitis C Diabetes mellitus type 2 Fibromyalgia Plan: Trend LFTs off heparin drip Trend H&H and monitor for overt GI bleed continued GI prophylaxis On pancreatic enzyme On Reglan on IV steroids IV antibiotics start clear liquids and advance as tolerated Status post transhepatic cholangiogram with IR, found moderate to severe intrahepatic bile duct dilatation, a malignant obstruction of the CBD just below the cystic duct is seen which extends 3 cm above the existing stent. The internal stent extends to the duodenum. Recommend to be evaluated in the future for placement of a stent extension to the common hepatic duct. Seen and discussed with Dr. Merchant.
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
[2018-03-11] MEDS: Piperacillin/Tazobact 3.375 gm 100 ML IVPB SCH ×2 (17:33→23:28)
[2018-03-11] MEDS: LIPASE PO SCH (17:43)
[2018-03-11] MEDS: PROTEASE PO SCH (17:43)
[2018-03-11] MEDS: AMYLASE PO SCH (17:43)
--- NOTE | 2018-03-12 00:23 | PN ---
DATE: 03/11/2018 PULMONARY CRITICAL CARE PROGRESS NOTE REFERRING PHYSICIAN: Georgina Ferrara MD. SUBJECTIVE: The patient is lying in the bed, head at 45 degrees. Sleepy, arousable. Status post percutaneous biliary drainage and catheter placement. Had a catheter some pain. No cough. No sputum production. No leg pain. No leg swelling. OBJECTIVE: GENERAL: Mild distress with pain. VITAL SIGNS: Temp is 98, heart rate is 81, respiratory rate is 20, blood pressure 164/96, pulse ox 99% on room air. HEENT: Moist mucous membrane. No ulcer or thrush noted. NECK: Supple. No JVD. LUNGS: Have a fair airflow with rhonchi. HEART: S1 and S2. ABDOMEN: Epigastric area tenderness. Has a percutaneous drainage catheter, draining bilious fluid. EXTREMITIES: There is no edema. NEUROLOGIC: Awake, alert. Follows simple command. MEDICATIONS: She is on DuoNeb every 2 hours p.r.n. and also every 6 hours [id number], insulin coverage. She is on vrhjsd-[id number] capsule 3 times a day, metoprolol tartrate 25 mg daily, Lyrica 75 mg daily, morphine 4 mg every 3 hours p.r.n., Protonix 40 mg daily, Reglan 5 mg 3 times a day, Singulair 10 mg daily, Solu-Medrol 20 mg every 12 hours, Tylenol p.r.n., Ultram 50 mg 3 times a day p.r.n., vancomycin 1 g IV every 12 hours, Zestril 10 mg daily, Zofran p.r.n. and Zosyn 3.375 g every 6 hours. LABORATORY DATA: Shows hemoglobin 8.8, hematocrit 26.8, WBC 19.9, platelet count is 432. Her INR this afternoon went to 56. Sodium 138, potassium 3.7, chloride 107, bicarbonate 20, BUN 11, creatinine 0.5, glucose 298, calcium 8.2, phosphorus 2.9, magnesium 1.6. Total bilirubin is 13.2. AST 86, ALT 35, alkaline phosphatase is 243. Albumin is 2.7. Blood culture, one bottle has Gram-positive cocci, second is so far negative. Nares MRSA is non-detected. IMPRESSION AND PLAN: Metastatic pancreatic cancer with progressive disease, end up obstructing biliary stent, end up with liver failure with high bilirubin; metastatic disease to liver, bone and lungs; chronic obstructive lung disease, diabetes, sleep apnea syndrome, history of alcohol abuse, history of substance abuse in the past, has inferior vena cava thrombus. Patient is on heparin weight-based protocol, apparently very high PTT, so heparin is on hold. Follow up PT/INR is pending. Watch for bleed closely; in the past when she was started on anticoagulation, she had a gastrointestinal bleed and when anticoagulation was started, at that time she had a deep vein thrombosis. Pulmonary point of view, encourage continuous positive airway pressure use. Keep head at 45 degrees. Followup hemoglobin and hematocrit and CBC. Decrease Solu-Medrol to 20 daily. Pain management, being followed by GI and Oncology. Critical care time more than 35 minutes. Thank you and we will follow with you. Linnea Stephen MD
[2018-03-12] MEDS: Morphine 4 mg/ml ISec IVP PRN ×5 (02:01→23:17)
[2018-03-12] MEDS: Albuterol-Ipratrop 3 mg / 0.5 (3 ml) UD IH SCH ×4 (02:25→20:17)
[2018-03-12] MEDS: Vancomycin 1gm in NS 250ml 1 GM/250 ML BAG IVPB SCH ×2 (02:49→15:10)
--- NOTE | 2018-03-12 04:04 | PN ---
DATE: 03/11/2018 SUBJECTIVE: The patient is a 67-year-old female. The patient was seen and examined at the bedside in the unit. Looking comfortable. Pain is better. Appetite is improving. Night was without any problem. Shortness of breath is better. Coughing is better. No nausea or vomiting. No headache. No dizziness. No swelling of the legs. No hematuria. No hematochezia. PHYSICAL EXAMINATION: VITAL SIGNS: Temperature 98.3, pulse 83, respirations 21, blood pressure 148/89, pulse oximetry 95%. HEENT: Head: Normocephalic and atraumatic. Eyes: PERRLA. Extraocular muscles intact. Conjunctivae clear. Nose patent. Mucous membranes moist. NECK: Supple. No carotid bruit. No JVD or thyromegaly. CHEST: Bilaterally symmetrical. HEART: S1 and S2 positive. LUNGS: Clear to auscultation. ABDOMEN: Soft. Bowel sounds present. No organomegaly. EXTREMITIES: No edema. No cyanosis. NEUROLOGIC: The patient is awake and alert. Moving all four extremities. No focal deficits. MEDICATIONS: DuoNeb, albuterol, Maxipime, vancomycin, dextrose, heparin, ibuprofen, lisinopril, Solu-Medrol, Reglan, Lopressor, Singulair, morphine, lipase, Zofran, Protonix and Lyrica. LABORATORY DATA: Sodium 138. White blood cell 19.9, hemoglobin 8.8, hematocrit 26.5, platelets 432. Glucose 134. ASSESSMENT AND PLAN: Ms. Hortensia Love is a 67-year-old female with history of chronic obstructive pulmonary disease, sleep apnea syndrome, hepatitis C, colon resection, transient ischemic attack, pancreatic cancer with metastasis to the liver and lungs, came to the emergency room with jaundice and found to have metastasis of the liver. Actually patient has biliary stent put by Gastroenterology/interventional radiologist, Dr. 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 Discussion done with patient's family. Heparin drip was actually initially started, but has been discontinued. Patient is oriented x3. Pain management is morphine and Toradol as needed. Getting Lyrica also. Getting tapering dose of steroids. Heparin discontinued because hemoglobin was dropping. Gastroenterology is on the case. We will continue present treatment. Repeat labs. We will follow up. Georgina Ferrara MD
[2018-03-12] MEDS: Piperacillin/Tazobact 3.375 gm 100 ML IVPB SCH ×4 (05:16→23:09)
[2018-03-12] MEDS: Pantoprazole 40 mg EC Tab PO SCH (05:16)
[2018-03-12 06:42] LABS: EOS # 0.1 (0.0-0.7); EOS % 0.5 % (1.5-5.0); GRAN # 12.88 (1.4-6.5); HEMOGLOBIN 9.3 g/dL (12.0-16.0); LYMPH # 1.2 (1.2-3.4); LYMPH % 8.2 % (22.0-35.0); MEAN CORPUSCULAR HEMOGLOBIN 26.3 pg (25.0-35.0); MEAN CORPUSCULAR HGB CONC 33.7 g/dl (31.0-37.0); MEAN PLATELET VOLUME 9.4 fl (7.0-11.0); MONO % 6.3 % (1.0-6.0); RBC 3.54 10^6/uL (3.5-6.1); RED CELL DISTRIBUTION WIDTH 20.8 % (11.5-14.5); WHITE BLOOD COUNT 15.2 10^3/ul (4.5-11.0)
[2018-03-12 07:01] LABS: ALB/GLOB RATIO 0.7 (1.1-1.8); ALBUMIN 2.9 g/dL (3.0-4.8); ALT/SGPT 32 U/L (7-56); AST/SGOT 64 U/L (14-36); BLOOD UREA NITROGEN 9 mg/dL (7-21); CALCIUM 8.8 mg/dL (8.4-10.5); GFR AFRICAN-AMERICAN > 60; GFR NON-AFRICAN AMERICAN > 60
[2018-03-12] MEDS: Insulin Reg-MEDIUM-Coverage SC SCH ×4 (07:58→23:19)
[2018-03-12] MEDS ORDERED: MethylPREDNISolone 40 mg Vial IVP SCH (10:00)
[2018-03-12] MEDS: PROTEASE PO SCH ×3 (10:18→18:28)
[2018-03-12] MEDS: AMYLASE PO SCH ×3 (10:18→18:28)
[2018-03-12] MEDS: LIPASE PO SCH ×3 (10:18→18:28)
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
--- NOTE | 2018-03-12 23:47 | PN ---
DATE: 03/12/2018 PULMONARY PROGRESS NOTE REFERRING PHYSICIAN: Georgina Ferrara MD. SUBJECTIVE: She is sitting up in bed. Dr. Parker is at bedside. Family is at bedside. Night was unremarkable. Status post biliary drainage placement. Feels much better. Decreased nausea and decreased vomiting. Has a good appetite, also decreased abdominal pain. No dysuria. No leg pain or leg swelling. OBJECTIVE: GENERAL: In no acute distress. VITAL SIGNS: Temperature is 98, heart rate is 78, respiratory rate is 20, blood pressure 145/98, pulse ox 98% room air. HEENT: Moist mucous membrane. Crowded airway. NECK: Supple. No JVD. LUNGS: Have a fair airflow with rhonchi. HEART: S1, S2. ABDOMEN: Positive bowel sounds. Has epigastric tenderness. Biliary drainage working well. EXTREMITIES: There is no edema. NEUROLOGIC: Awake, alert, and follows simple command. MEDICATIONS: She is on DuoNeb every 2 hour p.r.n., every 6 hour [id number]; insulin coverage; rthcpl-[id number]-[id number] capsule 3 times a day; metoprolol tartrate 25 mg daily, Lyrica 75 mg daily; morphine 4 mg every 3 hours p.r.n.; Protonix 40 mg daily, Reglan 5 mg three times a day; Singulair 10 mg daily; Solu-Medrol 20 mg daily; Tylenol p.r.n.; Ultram 50 mg three times a day p.r.n.; vancomycin 1 g IV every 12 hour; Zestril 10 mg daily; Zofran p.r.n., Zosyn 3.375 g every 6 hour. LABORATORY DATA: Shows hemoglobin 9.3, hematocrit 27.6, WBC 15,000, platelet is 446. PTT is 33. Sodium , potassium 3.5, chloride 109, bicarbonate 23, BUN 9, creatinine 0.6, glucose 112, calcium 8.8, phosphorus 1.6. Total bili is 10.5, AST 64, ALT 32, alk phos is 249. Albumin 2.9. Microbiology: One blood culture, out of two, has a gram-positive cocci. IMPRESSION AND PLAN: Metastatic pancreatic cancer with progressive disease, end up obstructing biliary stent, requiring percutaneous placement of the biliary stent which is draining well; metastatic disease involving the liver, bone, and the lungs. Other issues are chronic lung disease, sleep apnea syndrome, diabetes, history of alcohol abuse, history of deep venous thrombosis. Case discussed with Dr. Parker. Spoke to the patient's family at bedside. All their questions answered. Continue bronchodilator. Keep head at 45 degrees. Gastric prophylaxis, Deep venous thrombosis prophylaxis. Patient will benefit from restarting chemotherapy before internalization of biliary drainage. Thank you and we will follow with you. Linnea Stephen MD
[2018-03-13] MEDS: Albuterol-Ipratrop 3 mg / 0.5 (3 ml) UD IH SCH ×4 (01:28→19:46)
[2018-03-13] MEDS: Vancomycin 1gm in NS 250ml 1 GM/250 ML BAG IVPB SCH ×2 (01:56→13:50)
[2018-03-13] MEDS: Morphine 4 mg/ml ISec IVP PRN ×5 (02:37→19:49)
[2018-03-13] MEDS: Piperacillin/Tazobact 3.375 gm 100 ML IVPB SCH ×4 (05:44→23:34)
[2018-03-13] MEDS: Pantoprazole 40 mg EC Tab PO SCH (05:45)
[2018-03-13 07:19] LABS: BASO # 0.01 K/mm3 (0.0-2.0); BASO % 0.1 % (0.0-3.0); EOS # 0.1 (0.0-0.7); EOS % 0.6 % (1.5-5.0); GRAN # 12.85 (1.4-6.5); GRAN % 83.8 % (50.0-68.0); HEMOGLOBIN 9.2 g/dL (12.0-16.0); LYMPH # 1.3 (1.2-3.4); LYMPH % 8.4 % (22.0-35.0); MEAN CELL VOLUME 78.2 fl (80.0-105.0); MEAN CORPUSCULAR HEMOGLOBIN 26.1 pg (25.0-35.0); MEAN CORPUSCULAR HGB CONC 33.3 g/dl (31.0-37.0); MEAN PLATELET VOLUME 9.3 fl (7.0-11.0); MONO # 1.1 (0.1-0.6); MONO % 7.1 % (1.0-6.0); RBC 3.53 10^6/uL (3.5-6.1); RED CELL DISTRIBUTION WIDTH 21.1 % (11.5-14.5); WHITE BLOOD COUNT 15.3 10^3/ul (4.5-11.0)
[2018-03-13 07:27] LABS: ALB/GLOB RATIO 0.7 (1.1-1.8); ALT/SGPT 31 U/L (7-56); AST/SGOT 56 U/L (14-36); BLOOD UREA NITROGEN 9 mg/dL (7-21); CALCIUM 8.5 mg/dL (8.4-10.5); GFR AFRICAN-AMERICAN > 60; GFR NON-AFRICAN AMERICAN > 60
[2018-03-13] MEDS: Insulin Reg-MEDIUM-Coverage SC SCH ×4 (07:47→22:00)
[2018-03-13] MEDS: AMYLASE PO SCH ×3 (09:04→18:32)
[2018-03-13] MEDS: PROTEASE PO SCH ×3 (09:04→18:32)
[2018-03-13] MEDS: LIPASE PO SCH ×3 (09:04→18:32)
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
[2018-03-13] MEDS: POLYETHYLENE GLYCOL 3350 17 GM/Dose PACKET PO SCH (18:33)
--- NOTE | 2018-03-13 18:33 | PN ---
DATE: 03/13/2018 PULMONARY PROGRESS NOTE REFERRING PHYSICIAN: Georgina Ferrara MD. SUBJECTIVE: The patient is sitting at the side of the bed, having lunch. Family is at bedside. Getting prune juice for constipation. No headache, no rhinitis. No cough. Still has mild abdominal pain. Percutaneous biliary drainage working well. No leg pain or leg swelling. PHYSICAL EXAMINATION: GENERAL: In no acute distress. VITAL SIGNS: Temperature is 98, heart is 89, respiratory rate is 20, blood pressure 148/98, pulse ox 99% room air. HEENT: Moist mucous membrane. Crowded airway. Mallampati score is 4. NECK: Supple. No JVD. LUNGS: Have a fair airflow with rhonchi. HEART: S1 and S2. ABDOMEN: Soft. Mild epigastric pain. Biliary drainage is working well. EXTREMITIES: There is no edema. NEUROLOGIC: Awake, alert, and follows simple command. MEDICATIONS: She is on DuoNeb every 2 hours p.r.n. and every 6 hours [id number], insulin coverage, metoprolol tartrate 25 mg daily, Lyrica 75 mg daily, morphine 4 mg every 3 hours p.r.n., Protonix 40 mg daily, Reglan 5 mg three times a day, Singulair 10 mg daily, Tylenol p.r.n. basis, Ultram 50 mg three times a day p.r.n., Zestril 10 mg daily, Zofran p.r.n. basis, Zosyn 3.375 g every 6 hours. LABORATORY DATA: Shows hemoglobin 9.2, hematocrit 27.6, WBC 15.3, platelet count is 478. Sodium 142, potassium 3.3, chloride 106, bicarbonate 24, BUN 9, creatinine 0.5, glucose 133, calcium 8.5. Total bilirubin 7.7, AST 56, ALT 31, alkaline phosphatase is 236. Albumin 3. Microbiology, blood culture 1 out of 2 has coag-negative staph. IMPRESSION AND PLAN: Metastatic pancreatic cancer involving the liver, bones, and lungs, had an internal biliary stent which ended up getting blocked by the tumor extension, which had been removed and percutaneous drainage is placed which is working well. Other issues are chronic lung disease, sleep apnea syndrome, diabetes, history of alcohol abuse in the past, history of deep venous thrombosis. Pulmonary point of view, she is doing okay. We will continue bronchodilator. Keep head at 45 degrees. Sleep apnea precaution, pain management. Need to start her chemotherapy in the review of aggressive tumor blocking biliary tract. May need chemo before internalization of the percutaneous biliary drainage. We will add stool softener. Gastric prophylaxis, deep venous thrombosis prophylaxis. Follow up labs in the morning. Thank you and we will follow up with you. Linnea Stephen MD
[2018-03-14] MEDS: Albuterol-Ipratrop 3 mg / 0.5 (3 ml) UD IH SCH ×4 (01:20→20:04)
[2018-03-14] MEDS: Morphine 4 mg/ml ISec IVP PRN ×3 (03:13→12:22)
[2018-03-14] MEDS: Piperacillin/Tazobact 3.375 gm 100 ML IVPB SCH ×3 (05:22→17:28)
[2018-03-14] MEDS: Pantoprazole 40 mg EC Tab PO SCH (05:31)
[2018-03-14 06:11] LABS: EOS # 0.1 (0.0-0.7); EOS % 0.8 % (1.5-5.0); GRAN # 10.97 (1.4-6.5); GRAN % 80.8 % (50.0-68.0); LYMPH # 1.5 (1.2-3.4); LYMPH % 11.3 % (22.0-35.0); MEAN CELL VOLUME 79.5 fl (80.0-105.0); MEAN CORPUSCULAR HEMOGLOBIN 26.4 pg (25.0-35.0); MEAN CORPUSCULAR HGB CONC 33.2 g/dl (31.0-37.0); MONO % 7.1 % (1.0-6.0); RBC 3.41 10^6/uL (3.5-6.1); RED CELL DISTRIBUTION WIDTH 20.4 % (11.5-14.5); WHITE BLOOD COUNT 13.6 10^3/ul (4.5-11.0)
[2018-03-14 06:38] LABS: ALB/GLOB RATIO 0.7 (1.1-1.8); ALBUMIN 2.8 g/dL (3.0-4.8); ALT/SGPT 31 U/L (7-56); AST/SGOT 56 U/L (14-36); BLOOD UREA NITROGEN 7 mg/dL (7-21); CALCIUM 8.3 mg/dL (8.4-10.5); GFR AFRICAN-AMERICAN > 60; GFR NON-AFRICAN AMERICAN > 60
--- NOTE | 2018-03-14 07:38 | PN ---
DATE: 03/13/2018 SUBJECTIVE: Patient seen and examined on the bedside, looking comfortable. Abdominal pain is better. Tolerating full liquid food very well, advance to soft as tolerated. Still constipated because she is not eating very well, but prune juice is given, No hematuria or hematochezia. No swelling of the leg. PHYSICAL EXAMINATION: VITAL SIGNS: Temperature 98.1, heart rate 89, respiratory rate 20, blood pressure 140/90, pulse oximetry 99% on room air. HEENT: Head normocephalic, atraumatic. Eyes PERRLA. Extraocular muscles intact. Conjunctivae clear. Nose patent. NECK: Supple. No carotid bruit, JVD, or thyromegaly. CHEST: Bilaterally symmetrical. HEART: S1 and S2 positive. LUNGS: Clear to auscultation. ABDOMEN: Soft. Bowel sounds present. No organomegaly. EXTREMITIES: No edema. No cyanosis. NEUROLOGIC: Patient is awake and alert. Moving all 4 extremities. No focal deficit. MEDICATIONS: DuoNeb, insulin coverage, metoprolol, Lyrica, morphine, Protonix, Reglan, Singulair, Tylenol, tramadol, Zestril, Zofran. LABORATORY DATA: Hemoglobin 9.2, hematocrit 27.3, white blood cells 15.3, platelets 476. Sodium 142, potassium 3.3, BUN 9, creatinine 0.5. ASSESSMENT AND PLAN: The patient is a 67-year-old female with metastatic pancreatic cancer involving the liver, lungs, Gastrointestinal and deep vein thrombosis prophylaxis. History of diabetes, chronic obstructive pulmonary disease, pancreatic cancer with metastasis. Dr. Parker is on the case , starting chemotherapy very soon . Repeat labs. We will follow up. Georgina Ferrara MD [place]
[2018-03-14] MEDS: Insulin Reg-MEDIUM-Coverage SC SCH ×4 (08:00→21:46)
--- NOTE | 2018-03-14 08:09 | PN ---
DATE: 03/12/2018 ONCOLOGY PROGRESS NOTE LOCATION: The patient is in room 371, bed 1. SUBJECTIVE: The patient is sitting in bed, upright, with the family by her bedside. The patient is status post placement of internal-external drainage catheter done by Dr. Loi Zamudio as the previous stent had become blocked by progression of tumor with rising bilirubin which was the cause for the admission in the first place for this current admission. The patient is known to us, was seen by us in our office last week for a diagnosis of metastatic stage IV progressive pancreatic adenocarcinoma with documented metastatic disease in the lungs in the form of bilateral lung metastasis in the form of adenopathy in the retroperitoneal lymph nodes, intraabdominal adenopathy as well as well as pancreatic adenopathy and to some degree, evidence of ascites as well. The patient since the placement of the stent has been feeling better. The patient's pain is significantly improved today. PHYSICAL EXAMINATION GENERAL: Objectively, the patient generally is feeling better today. VITAL SIGNS: Are stable as stated in the chart. Vital signs today reveal a T-max of 98.4, pulse was 78, blood pressure is 145/89, respiration is 25, O2 sat is 95% on room air. HEENT: Head is normocephalic, atraumatic. Conjunctivae pale. Sclerae is icteric. Examination of the oropharynx reveals tongue to be moist. No ulcerations are noted. No evidence of any fungal infection. NECK: Supple. There is no adenopathy. LUNGS: Relatively clear with scattered rhonchi. HEART: Examination of the heart reveals S1, S2, to be normal. No gallop or murmur is heard. ABDOMEN: The patient has some epigastric tenderness and she has a new percutaneous catheter draining bilious fluid that is green without any evidence of serosanguineous drainage. Abdomen is soft with slight epigastric tenderness. The patient has no rebound, rigidity or guarding noted. No masses are felt. EXTREMITIES: Reveals no cyanosis, clubbing or edema. GENITOURINARY/RECTAL: Deferred. NEUROLOGIC: Reveals higher functions to be normal. No focal deficits are noted. There is no evidence of adenopathy in the neck, axilla or groin. MEDICATIONS: Medications of the patient was reviewed. She is on DuoNeb every 2 hours as needed, also every 6 hours round the clock. She is on insulin coverage. She is on pancrelipase capsule 3 times a day, metoprolol tartrate 25 mg daily, Lyrica 75 mg daily, warfarin 4 mg IV every 3 hours p.r.n., Protonix 40 mg daily, Reglan 5 mg 3 times a day, Singulair 10 mg daily, Solu-Medrol 20 mg IV every 12 hours, Tylenol p.r.n., Ultram 50 mg 3 times a day, vancomycin 1 g every 12 hours, Zestril 10 mg daily, Zofran p.r.n., Zosyn 3.375 mg every 6 hours. She is on coverage after the internal external stent was put in. LABORATORY DATA: Reveals hemoglobin which is up now at this point in time to 9 unchanged. Hemoglobin is 9.2, hematocrit of 27.6, platelet count is 446. Chemistries reveal sodium of 145, K is 4.5, chloride 109, blood sugar is 186. Phosphorus is 1.6 which is low, total bilirubin is down from 14 to 10.5. AST is 64, ALT is 32, alkaline phosphatase is 249, total protein is 7.3 with an albumin of 2.9. PTT has now normalized to 32.5. ASSESSMENT, NOTES AND PLAN: The patient has stage IV metastatic pancreatic carcinoma with documented liver metastasis, intraabdominal carcinomatosis, obstructive bile duct with tumor going through, status post successful placement of internal-external drain at this point in time. Cachexia related to malignancy, slowly improving obstructive jaundice at this time. Plan, I had detailed discussion with the patient and family, both her sister and her [id number] was there present, a detailed discussion about the nature of her illness. The patient has not had any chemotherapy now for few months because she was in and out of hospital for various medical reasons until now. She is admitted with the aforementioned complaints. I told the patient that it is imperative that we get started on her treatment even though the bilirubin is elevated, we can still start her on single agent that will not depend on liver excretion and start her on at least a Platinol-based or oxaliplatin-based regimen and then coming with gemcitabine or 5-FU based regimen appropriately cutting the dosage once the bilirubin level goes down. The patient is currently on antibiotics. We will get Infectious Disease clearance before initiation of any therapy. We would also look for any actionable genes and sent the tumor tissue that is available from her previous prior diagnoses to [facility] for any actionable genes. Overall prognosis is guarded, but I have been optimistic with the patient. She is eager and desiring to undergo more therapies so that we can control the disease and prevent the progression. Time spent with the patient is greater than 45 minutes, reviewing all the data, correlating all the information and reviewing all her medications as well. We will discuss my findings in detail with Dr. Ferrara and Dr. Stephen who are other attendings involved in her care. Freddie Parker MD
--- NOTE | 2018-03-14 09:07 | PN ---
DATE: 03/12/2018 SUBJECTIVE: The patient is 67-year-old female. The patient was seen and examined at bedside, looking comfortable. Appetite is better. Abdominal pain is better. No nausea, vomiting. No hematuria, hemochezia. No swelling of the leg. No chest pain. No palpitation. No headache. No dizziness. PHYSICAL EXAMINATION VITAL SIGNS: Temperature 98.1, pulse is 78, respiratory rate 20, blood pressure 145/98, pulse oximetry 95. HEENT: Head normocephalic, atraumatic. Eyes PERRLA. Extraocular muscles intact. Conjunctivae clear. Nose patent. Mucous membrane moist. NECK: Supple. No carotid bruit. No JVD or thyromegaly. CHEST: Bilaterally symmetrical. HEART: S1 and S2 positive. LUNGS: Clear to auscultation. ABDOMEN: Soft. Bowel sounds positive. No organomegaly. EXTREMITIES: No edema. No cyanosis. NEUROLOGICAL: The patient is awake and alert. Moving all 4 extremities. No focal deficits. MEDICATIONS: Tylenol, DuoNeb, vancomycin, Zosyn, Zestril, Reglan, Lopressor, Singulair, morphine, Zofran, Protonix, Lyrica, tramadol. LABORATORY DATA: White blood cells 15.2, hemoglobin 9.3, hematocrit of 27.6, platelets 446. Sodium 145, potassium 3.5, BUN 9, creatinine 0.6, glucose 112. ASSESSMENT AND PLAN: The patient is a 67-year-old female, with leukocytosis, anemia, hypokalemia, hyperglycemia, has pancreatic cancer with metastasis to the lung and liver. The patient came with jaundice, elevated liver function test, has hepatitis C, fibromyalgia. Pancultures done and continue Zosyn for now. No renal impairment noted at this time. White blood cells trending down. The patient is feeling comfortable. LFTs were mildly elevated, but improving. History of chronic obstructive pulmonary disease, asthma. culture is showing coagulase-negative Staph on studies. This is likely contamination. Appreciated Dr. Arredondo's input. Gastrointestinal and deep venous stasis prophylaxis. Repeat labs. We will follow up. Georgina Ferrara MD [facility] # [id number] [place]
[2018-03-14] MEDS: PROTEASE PO SCH ×2 (09:35→15:07)
[2018-03-14] MEDS: AMYLASE PO SCH ×2 (09:35→15:07)
[2018-03-14] MEDS: LIPASE PO SCH ×2 (09:35→15:07)
[2018-03-14] MEDS: POLYETHYLENE GLYCOL 3350 17 GM/Dose PACKET PO SCH (09:49)
[2018-03-14] MEDS: Enoxaparin 30 mg Syringe SC SCH (09:49)
[2018-03-14] MEDS ORDERED: Potassium Chloride 20 mEq ER Tab PO ONE (12:00)
--- NOTE | 2018-03-14 12:51 | CP.PCM.PN ---
Subjective - Date & Time of Evaluation Date of Evaluation: 03/14/18 Time of Evaluation: 11:00 - Subjective Subjective: PGY-2 GI progress note Patient seen and examined at the bedside. Patient is status post internal/ external biliary drain placement, bilious fluid noted. Patient endorses she is feeling well today but reports pain on her right side, stating it feels like gas. She denies any nausea, vomiting, fever or chills. Had a small bowel movement, no blood noted. She is tolerating her soft diet. Objective - Vital Signs/Intake and Output Vital Signs (last 24 hours): Temp Pulse Resp BP Pulse Ox 97.8 F 74 19 155/97 H 98 03/14/18 08:07 03/14/18 08:07 03/14/18 08:07 03/14/18 08:07 03/14/18 08:07 Intake and Output: 03/14/18 03/14/18 06:59 18:59 Intake Total 660 Output Total 350 0 Balance 310 0 - Medications Medications: Current Medications Acetaminophen (Tylenol 325mg Tab) 650 mg PO Q4H PRN PRN Reason: Pain, Mild (1-3) Albuterol/Ipratropium (Duoneb 3 Mg/0.5 Mg (3 Ml) Ud) 3 ml IH Q2H PRN PRN Reason: Shortness of Breath Albuterol/Ipratropium (Duoneb 3 Mg/0.5 Mg (3 Ml) Ud) 3 ml IH [id number] [facility] Last Admin: 03/14/18 07:44 Dose: Not Given Enoxaparin Sodium (Lovenox) 30 mg SC DAILY [facility] PRN Reason: Protocol Last Admin: 03/14/18 09:49 Dose: 30 mg Piperacillin Sod/Tazobactam Sod (Zosyn 3.375 In Ns 100ml) 100 mls @ 200 mls/hr IVPB Q6 [facility] PRN Reason: Protocol Last Admin: 03/14/18 12:23 Dose: 200 mls/hr Insulin Human Regular (Humulin R Med) 0 units SC ACHS [facility] PRN Reason: Protocol Last Admin: 03/14/18 12:22 Dose: 10 units Lisinopril (Zestril) 10 mg PO DAILY [facility] Last Admin: 03/14/18 09:50 Dose: 10 mg Metoclopramide HCl (Reglan) 5 mg PO TID [facility] Last Admin: 03/14/18 09:49 Dose: 5 mg Metoprolol Tartrate (Lopressor) 25 mg PO DAILY [facility] Last Admin: 03/14/18 09:49 Dose: 25 mg Montelukast Sodium (Singulair) 10 mg PO DAILY [facility] Last Admin: 03/14/18 09:50 Dose: 10 mg Morphine Sulfate (Morphine) 4 mg IVP Q3H PRN PRN Reason: Pain, severe (8-10) Last Admin: 03/14/18 12:22 Dose: 4 mg Lipase/Protease/Amylase [Katy Milligan 3, 000 Units Capsule] ( Home Med) 3,000 cap PO TID [facility] Last Admin: 03/14/18 09:35 Dose: Not Given Ondansetron HCl (Zofran Inj) 4 mg IVP Q6H PRN PRN Reason: Nausea/Vomiting Pantoprazole Sodium (Protonix Ec Tab) 40 mg PO 0600 [facility] Last Admin: 03/14/18 05:31 Dose: 40 mg Polyethylene Glycol (Miralax) 17 gm PO DAILY [facility] Last Admin: 03/14/18 09:49 Dose: 17 gm Pregabalin (Lyrica) 75 mg PO DAILY [facility] Last Admin: 03/14/18 09:49 Dose: 75 mg Tramadol HCl (Ultram) 50 mg PO TID PRN PRN Reason: Pain, moderate (4-7) Last Admin: 03/14/18 09:49 Dose: 50 mg Zolpidem Tartrate (Ambien) 5 mg PO HS PRN; Protocol PRN Reason: Insomnia Last Admin: 03/13/18 21:57 Dose: 5 mg - Labs Labs: 03/14/18 05:45 03/14/18 05:45 PT 18.2 SECONDS (9.4-12.5) H 03/11/18 07:30 INR 1.57 (0.93-1.08) H 03/11/18 07:30 APTT 32.5 Seconds (25.1-36.5) 03/12/18 06:00 - Constitutional Appears: Well, No Acute Distress - Head Exam Head Exam: ATRAUMATIC, NORMOCEPHALIC - Eye Exam Eye Exam: EOMI, Normal appearance - ENT Exam ENT Exam: Mucous Membranes Moist - Respiratory Exam Respiratory Exam: Clear to Ausculation Bilateral, NORMAL BREATHING PATTERN. absent: Rhonchi, Wheezes, Respiratory Distress - Cardiovascular Exam Cardiovascular Exam: REGULAR RHYTHM, +S1, +S2. absent: Bradycardia, Tachycardia , Murmur - GI/Abdominal Exam GI & Abdominal Exam: Soft, Tenderness (Right side near the drain site), Normal Bowel Sounds. absent: Distended, Firm, Diminished Bowel Sounds - Extremities Exam Extremities Exam: Normal Inspection. absent: Calf Tenderness, Pedal Edema, Tenderness - Neurological Exam Neurological Exam: Alert, Awake, Oriented x3 - Skin Skin Exam: Dry, Intact, Normal Color, Warm Assessment and Plan - Assessment and Plan (Free Text) Assessment: 67 year old female with a history of HTN, DM II, COPD, Sleep apnea, colon resection, TIA & Pancreatic Cancer w/ mets (last chemotherapy on early 12/2017) presents with jaundice and found to have obstructing stent s/p internal/external biliary drain placement. Pancreatic cancer with metastasis, status post biliary stent, now obstructed, S/ P internal/external biliary drain placement on 03/10/2018 Jaundice secondary to biliary stent obstruction Elevated LFTs secondary to above Leukocystosis Inferior vena cava thrombus Chronic hepatitis C Diabetes mellitus type 2 Fibromyalgia Plan: continue to monitor LFTs H&H stable, continue to trend H&H and monitor for overt GI bleed continued GI prophylaxis contine on pancreatic enzyme On Reglan continue IV antibiotics currently soft diet, advance as tolerated Status post transhepatic cholangiogram with IR, found moderate to severe intrahepatic bile duct dilatation, a malignant obstruction of the CBD just below the cystic duct is seen which extends 3 cm above the existing stent. The internal stent extends to the duodenum. Recommend to be evaluated in the future for placement of a stent extension to the common hepatic duct. Seen and discussed with Dr. Merchant.
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
--- NOTE | 2018-03-14 22:10 | PN ---
DATE: 03/14/2018 PULMONARY PROGRESS NOTE REFERRING PHYSICIAN: Georgina Ferrara MD. SUBJECTIVE: The patient is lying in the bed, head at 45 degrees, on and off having epigastric pain. Has a biliary drainage, working well. No nausea, no abdominal pain. Had a bowel movement yesterday. No leg pain or leg swelling. PHYSICAL EXAMINATION: GENERAL: In no acute distress. VITAL SIGNS: Temperature is 98, heart rate 74, respiratory rate is 20, blood pressure 144/99, pulse ox 98% on room air. HEENT: Moist mucous membrane. Crowded airway. NECK: Supple. No JVD. LUNGS: Have a fair airflow with few rhonchi. HEART: S1 and S2. ABDOMEN: Positive bowel sounds. Epigastric area and right upper quadrant tenderness. Drainage bag working well. EXTREMITIES: There is no edema. NEUROLOGIC: Awake, alert, and follows simple command. MEDICATIONS: She is on Ambien 5 mg at bedtime p.r.n., DuoNeb every 2 hours p.r.n. and every 6 hours [id number], insulin coverage, metoprolol tartrate 25 mg daily, Lovenox 30 mg subcu daily, Lyrica 75 mg daily, MiraLax 17 g daily, morphine 4 mg every 3 hours p.r.n., Protonix 40 mg daily, Reglan 5 mg three times a day, Singulair 10 mg daily, IV fluid half-normal saline 80 mL per hour, Tylenol p.r.n., Ultram 50 mg three times a day p.r.n., Zestril 10 mg daily, and Zofran p.r.n. basis. LABORATORY DATA: Shows hemoglobin 9, hematocrit 27.1, WBC 13.6, platelet is 408. Sodium 141, potassium 3.4, chloride 105, bicarbonate 27, BUN 7, creatinine 0.5, glucose 79, calcium 8.3. Total bilirubin 7.7, AST 56, ALT 31, alkaline phosphatase is 200, albumin is 2.8. Blood cultures, one out of two has coag-negative staph. IMPRESSION AND PLAN: Metastatic pancreatic cancer involving the liver, bone, lungs, and biliary ductal system with obstruction of the biliary stent, requiring percutaneous drainage; chronic obstructive lung disease; obstructive sleep apnea syndrome; diabetes; history of alcohol abuse. Pulmonary point of view, doing okay. Continue antibiotics as per infectious diseases, bronchodilator. Keep head at 45 degrees. Careful with sedation. Being followed by oncology. Will benefit from inpatient chemotherapy. Gastric prophylaxis, deep venous thrombosis prophylaxis. Out of bed to chair. Continue pain management. Continue stool softener. Thank you and we will follow with you. Linnea Stephen MD
[2018-03-15] MEDS: Morphine 4 mg/ml ISec IVP PRN ×4 (00:15→20:15)
[2018-03-15] MEDS: Albuterol-Ipratrop 3 mg / 0.5 (3 ml) UD IH SCH ×4 (01:11→21:15)
--- NOTE | 2018-03-15 03:26 | PN ---
DATE: The patient is a 67-year-old female. SUBJECTIVE: The patient was seen and examined at the bedside. Looking comfortable. Tolerated regular food very well. Has biliary drainage, working very well. No nausea or vomiting. No hematuria or hematochezia. No swelling of the leg. No chest pain. No palpitation. No headache or dizziness. PHYSICAL EXAMINATION: VITAL SIGNS: Temperature 98, heart rate is 74, respiratory rate 20, blood pressure 144/99, pulse oximetry 98% on room air. HEENT: Head, normocephalic and atraumatic. Eyes, PERRLA. Extraocular muscles are intact. Conjunctivae are clear. Nose is patent. Mucous membranes are moist. NECK: Supple. No carotid bruit, JVD, or thyromegaly. CHEST: Bilaterally symmetrical. HEART: S1, S2 positive. LUNGS: Clear to auscultation. ABDOMEN: Soft. Bowel sounds present. No organomegaly. EXTREMITIES: No edema. No cyanosis. NEUROLOGIC: Patient is awake, alert. Moving all four extremities. No focal deficits. MEDICATIONS: Ambien, DuoNeb, insulin coverage, metoprolol, Lovenox, Lyrica, MiraLax, morphine, Protonix, Reglan, Singulair and a half NS, Tylenol, tramadol, Zestril and Zofran. LABORATORY DATA: Hemoglobin 9, hematocrit 27.1, white blood cells 13.6, and platelets 408. Sodium 141, potassium 3.4, BUN 7, creatinine 0.5. AST 56, ALT 31. Blood cultures, 1 out of 2 has coagulase -negative staph. ASSESSMENT AND PLAN: Ms. Hortensia Love has metastatic pancreatic cancer involving the liver, bones, lungs and biliary duct system with obstruction of the biliary stent requiring percutaneous drainage; chronic obstructive lung disease; obstructive sleep apnea syndrome; diabetes mellitus; history of alcohol abuse; history of substance abuse. Continue antibiotics as per Infectious Disease, bronchodilators. Careful with sedation. Patient tolerated regular diet. Out of bed. Physical therapy. Gastric prophylaxis. Liver function test is improving. We will follow up. Georgina Ferrara MD [facility] # [id number]
[2018-03-15] MEDS: Pantoprazole 40 mg EC Tab PO SCH (05:44)
[2018-03-15 06:09] LABS: EOS # 0.1 (0.0-0.7); EOS % 0.9 % (1.5-5.0); GRAN # 11.31 (1.4-6.5); GRAN % 80.3 % (50.0-68.0); LYMPH # 1.6 (1.2-3.4); LYMPH % 11.4 % (22.0-35.0); MEAN CELL VOLUME 79.5 fl (80.0-105.0); MEAN CORPUSCULAR HEMOGLOBIN 26.4 pg (25.0-35.0); MEAN CORPUSCULAR HGB CONC 33.2 g/dl (31.0-37.0); MEAN PLATELET VOLUME 8.8 fl (7.0-11.0); MONO % 7.4 % (1.0-6.0); RBC 3.41 10^6/uL (3.5-6.1); RED CELL DISTRIBUTION WIDTH 20.8 % (11.5-14.5); WHITE BLOOD COUNT 14.1 10^3/ul (4.5-11.0)
[2018-03-15 06:29] LABS: ALB/GLOB RATIO 0.7 (1.1-1.8); ALBUMIN 2.8 g/dL (3.0-4.8); ALT/SGPT 39 U/L (7-56); AST/SGOT 77 U/L (14-36); BLOOD UREA NITROGEN 6 mg/dL (7-21); CALCIUM 8.3 mg/dL (8.4-10.5); GFR AFRICAN-AMERICAN > 60; GFR NON-AFRICAN AMERICAN > 60
[2018-03-15] MEDS: Insulin Reg-MEDIUM-Coverage SC SCH ×4 (08:24→21:46)
[2018-03-15] MEDS ORDERED: Potassium Chloride 20 mEq ER Tab PO ONE (08:53)
[2018-03-15] MEDS: POLYETHYLENE GLYCOL 3350 17 GM/Dose PACKET PO SCH (09:10)
[2018-03-15] MEDS: LIPASE PO SCH ×3 (09:11→18:37)
[2018-03-15] MEDS: AMYLASE PO SCH ×3 (09:11→18:37)
[2018-03-15] MEDS: PROTEASE PO SCH ×3 (09:11→18:37)
--- NOTE | 2018-03-15 10:01 | CP.PCM.PN ---
Subjective - Date & Time of Evaluation Date of Evaluation: 03/15/18 Time of Evaluation: 09:00 - Subjective Subjective: PGY-2 GI progress note Patient seen and examined at the bedside. Patient is status post internal/ external biliary drain placement, bilious fluid noted. Patient endorses she is feeling well today then yesterday. She states that her pain is better with her current pain medication. She does report mild tenderness with palpitation on her right side, near drain insertion site. She denies any nausea, vomiting, fever or chills. Patient denies constipation or diarrhea, no blood noted. She is tolerating her soft diet. Objective - Vital Signs/Intake and Output Vital Signs (last 24 hours): Temp Pulse Resp BP Pulse Ox 98.7 F 77 18 158/95 H 98 03/15/18 08:07 03/15/18 09:10 03/15/18 08:07 03/15/18 09:10 03/15/18 08:07 Intake and Output: 03/15/18 03/15/18 06:59 18:59 Intake Total 1260 Output Total 30 Balance 1230 - Medications Medications: Current Medications Acetaminophen (Tylenol 325mg Tab) 650 mg PO Q4H PRN PRN Reason: Pain, Mild (1-3) Albuterol/Ipratropium (Duoneb 3 Mg/0.5 Mg (3 Ml) Ud) 3 ml IH Q2H PRN PRN Reason: Shortness of Breath Albuterol/Ipratropium (Duoneb 3 Mg/0.5 Mg (3 Ml) Ud) 3 ml IH [id number] [facility] Last Admin: 03/15/18 08:17 Dose: Not Given Enoxaparin Sodium (Lovenox) 30 mg SC DAILY [facility] PRN Reason: Protocol Last Admin: 03/14/18 09:49 Dose: 30 mg Sodium Chloride (Sodium Chloride 0.45%) 1,000 mls @ 80 mls/hr IV .[id number] [facility] Stop: 03/17/18 08:00 Insulin Human Regular (Humulin R Med) 0 units SC ACHS [facility] PRN Reason: Protocol Last Admin: 03/15/18 08:24 Dose: 1 units Lisinopril (Zestril) 10 mg PO DAILY [facility] Last Admin: 03/15/18 09:10 Dose: 10 mg Metoclopramide HCl (Reglan) 5 mg PO TID [facility] Last Admin: 03/15/18 09:10 Dose: 5 mg Metoprolol Tartrate (Lopressor) 25 mg PO DAILY [facility] Last Admin: 03/15/18 09:10 Dose: 25 mg Montelukast Sodium (Singulair) 10 mg PO DAILY [facility] Last Admin: 03/15/18 09:10 Dose: 10 mg Morphine Sulfate (Morphine) 4 mg IVP Q3H PRN PRN Reason: Pain, severe (8-10) Last Admin: 03/15/18 08:33 Dose: 4 mg Lipase/Protease/Amylase [Katy Milligan 3, 000 Units Capsule] ( Home Med) 3,000 cap PO TID [facility] Last Admin: 03/15/18 09:11 Dose: Not Given Ondansetron HCl (Zofran Inj) 4 mg IVP Q6H PRN PRN Reason: Nausea/Vomiting Last Admin: 03/14/18 21:43 Dose: 4 mg Pantoprazole Sodium (Protonix Ec Tab) 40 mg PO 0600 [facility] Last Admin: 03/15/18 05:44 Dose: 40 mg Polyethylene Glycol (Miralax) 17 gm PO DAILY [facility] Last Admin: 03/15/18 09:10 Dose: 17 gm Pregabalin (Lyrica) 75 mg PO DAILY [facility] Last Admin: 03/15/18 09:10 Dose: 75 mg Tramadol HCl (Ultram) 50 mg PO TID PRN PRN Reason: Pain, moderate (4-7) Last Admin: 03/14/18 22:22 Dose: 50 mg Zolpidem Tartrate (Ambien) 5 mg PO HS PRN; Protocol PRN Reason: Insomnia Last Admin: 03/14/18 21:43 Dose: 5 mg - Labs Labs: 03/15/18 05:35 03/15/18 05:35 PT 18.2 SECONDS (9.4-12.5) H 03/11/18 07:30 INR 1.57 (0.93-1.08) H 03/11/18 07:30 APTT 32.5 Seconds (25.1-36.5) 03/12/18 06:00 - Constitutional Appears: Well, No Acute Distress - Head Exam Head Exam: ATRAUMATIC, NORMOCEPHALIC - Eye Exam Eye Exam: EOMI, Normal appearance - ENT Exam ENT Exam: Mucous Membranes Moist - Respiratory Exam Respiratory Exam: Clear to Ausculation Bilateral, NORMAL BREATHING PATTERN. absent: Rales, Rhonchi, Wheezes, Respiratory Distress, Stridor - Cardiovascular Exam Cardiovascular Exam: REGULAR RHYTHM, +S1, +S2. absent: Bradycardia, Tachycardia , Murmur - GI/Abdominal Exam GI & Abdominal Exam: Soft, Normal Bowel Sounds. absent: Distended, Firm, Tenderness - Neurological Exam Neurological Exam: Alert, Awake, Oriented x3 - Skin Skin Exam: Dry, Intact, Normal Color, Warm Assessment and Plan - Assessment and Plan (Free Text) Assessment: 67 year old female with a history of HTN, DM II, COPD, Sleep apnea, colon resection, TIA & Pancreatic Cancer w/ mets (last chemotherapy on early 12/2017) presents with jaundice and found to have obstructing stent s/p internal/external biliary drain placement. Pancreatic cancer with metastasis, status post biliary stent, now obstructed, S/ P internal/external biliary drain placement on 03/10/2018 Jaundice secondary to biliary stent obstruction Elevated LFTs secondary biliary stent obstruction Leukocystosis- improving Chronic hepatitis C Diabetes mellitus type 2 Fibromyalgia Plan: continue to monitor LFTs H&H stable, continue to trend H&H and monitor for overt GI bleed continued GI prophylaxis contine on pancreatic enzyme On Reglan continue IV antibiotics currently soft diet, advance as tolerated Status post transhepatic cholangiogram with IR, found moderate to severe intrahepatic bile duct dilatation, a malignant obstruction of the CBD just below the cystic duct is seen which extends 3 cm above the existing stent. Recommend to be evaluated in the future for placement of a stent extension to the common hepatic duct. Seen and discussed with Dr. Merchant.
[2018-03-15] MEDS: Enoxaparin 30 mg Syringe SC SCH (11:42)
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
[2018-03-15] MEDS: Sodium Chloride 0.45% 1,000 ML IV SCH (20:00)
[2018-03-15] MEDS ORDERED: Morphine 4 mg/ml ISec IVP PRN (22:46)
--- NOTE | 2018-03-15 23:02 | PN ---
DATE: 03/15/2018 PULMONARY PROGRESS NOTE REFERRING PHYSICIAN: Georgina Ferrara MD. SUBJECTIVE: The patient is lying in the bed, head at 45 degrees. Night was unremarkable. Feels better. Pain is better on pain medication. Had a bowel movement this morning. No cough, no sputum production. Draining bilious secretion from the percutaneous biliary drainage. No leg swelling. OBJECTIVE: GENERAL: In no acute distress. VITAL SIGNS: Temp is 98, heart rate is 89, respiratory rate is 18, blood pressure 142/97, pulse ox of 98% on room air. HEENT: Moist mucous membranes. Crowded airway. NECK: Supple. No JVD. LUNGS: Have a fair airflow with few rhonchi. HEART: S1 and S2. ABDOMEN: Soft. Right upper quadrant tenderness, right-sided biliary drainage catheter site looks okay. EXTREMITIES: There is no edema. NEUROLOGIC: Awake, alert. Follows simple command. MEDICATIONS: She is on Ambien 5 mg at bedtime p.r.n., DuoNeb every 2 hours p.r.n. and every 6 hours [id number], insulin coverage, metoprolol tartrate 25 mg daily, Lovenox 30 mg subcu daily, Lyrica 75 mg daily, MiraLax 17 g daily, morphine 4 mg every 3 hours p.r.n., Protonix 40 mg daily, Reglan 5 mg three times a day, Singulair 10 mg daily, IV fluid normal saline 80 mL per hour, Tylenol p.r.n., Ultram 50 mg three times a day p.r.n., Zestril 10 mg daily and Zofran p.r.n. basis. LABORATORY DATA: Shows hemoglobin 9, hematocrit 27.1, WBC 14.1, platelet is 452. Sodium 141, potassium 3.2, chloride 106, bicarbonate 26, BUN 6, creatinine 0.5, glucose 138 and calcium 8.3. Total bili is 6.7, AST 77, ALT 39, alk phos is 192. Albumin is 2.8. Blood culture, one out of two has coag-negative staph. IMPRESSION AND PLAN: Metastatic pancreatic cancer involving the liver, bone, lungs and biliary ductal system with obstruction of the biliary stent requiring percutaneous biliary drainage, history of chronic lung disease, sleep apnea syndrome, diabetes and alcohol abuse. Pulmonary point of view, she is doing pretty good. I believe tomorrow's plan is to internalize her biliary drainage. Continue pain medication. We will need chemotherapy before discharge. Gastric prophylaxis, deep venous thrombosis prophylaxis, pain management. Follow up labs in the morning. Thank you and we will follow with you. Linnea Stephen MD
[2018-03-16] MEDS: Albuterol-Ipratrop 3 mg / 0.5 (3 ml) UD IH SCH ×4 (02:30→20:30)
[2018-03-16] MEDS: Pantoprazole 40 mg EC Tab PO SCH (06:22)
[2018-03-16 06:44] LABS: BASO # 0.01 K/mm3 (0.0-2.0); BASO % 0.1 % (0.0-3.0); EOS # 0.1 (0.0-0.7); EOS % 0.7 % (1.5-5.0); GRAN # 12.94 (1.4-6.5); GRAN % 81.1 % (50.0-68.0); HEMOGLOBIN 9.4 g/dL (12.0-16.0); LYMPH # 1.7 (1.2-3.4); LYMPH % 10.3 % (22.0-35.0); MEAN CELL VOLUME 80.7 fl (80.0-105.0); MEAN CORPUSCULAR HEMOGLOBIN 26.3 pg (25.0-35.0); MEAN CORPUSCULAR HGB CONC 32.6 g/dl (31.0-37.0); MEAN PLATELET VOLUME 8.9 fl (7.0-11.0); MONO # 1.2 (0.1-0.6); MONO % 7.8 % (1.0-6.0); RBC 3.57 10^6/uL (3.5-6.1); RED CELL DISTRIBUTION WIDTH 20.5 % (11.5-14.5)
[2018-03-16 07:01] LABS: ALB/GLOB RATIO 0.7 (1.1-1.8); ALT/SGPT 35 U/L (7-56); AST/SGOT 75 U/L (14-36); BLOOD UREA NITROGEN 5 mg/dL (7-21); CALCIUM 8.8 mg/dL (8.4-10.5); GFR AFRICAN-AMERICAN > 60; GFR NON-AFRICAN AMERICAN > 60
[2018-03-16] MEDS: Insulin Reg-MEDIUM-Coverage SC SCH ×3 (07:31→22:14)
--- NOTE | 2018-03-16 08:41 | PN ---
DATE: 03/15/2018 SUBJECTIVE: Patient seen and examined on the bedside, looking comfortable. No nausea, vomiting, or diarrhea. No hematuria or hematochezia. No swelling of the legs. No chest pain. No palpitation. No headache. No dizziness. Abdominal pain is better. PHYSICAL EXAMINATION: VITAL SIGNS: Temperature 98.4, pulse 89, blood pressure 142/97, respiratory rate 18. HEENT: Head, normocephalic and atraumatic. Eyes, PERRLA. Extraocular muscles intact. Conjunctivae clear. Nose: Patent. NECK: Supple. No carotid bruit, JVD, or thyromegaly. CHEST: Bilaterally symmetrical. HEART: S1 and S2 positive. LUNGS: Clear to auscultation. ABDOMEN: Soft. Bowel sounds present. No organomegaly. EXTREMITIES: No edema. No cyanosis. NEUROLOGIC: Patient is awake and alert. Moving all 4 extremities. No focal deficits. MEDICATIONS: Ambien, DuoNeb, insulin, Lopressor, Lovenox, Lyrica, MiraLax, morphine, Protonix, Reglan, Singulair, NS, Tylenol, tramadol, Zestril, and Zofran. LABORATORY DATA: White blood cell is 14.1, hemoglobin 9, hematocrit 27, platelets 452. Sodium 141, potassium 3.2, BUN 6, creatinine 0.5, glucose 194, calcium 8.3. ASSESSMENT AND plan . female with leukocytosis; anemia; thrombocytosis; hypokalemia, replaced K-Dur given; uncontrolled diabetes mellitus; hypocalcemia; abnormal liver function test that is trending down. Has a history of pancreatic cancer with metastasis, history of hypertension, chronic obstructive pulmonary disease, sleep apnea syndrome, colonic resection, transient ischemic attack, status post chemotherapy, came with jaundice, found to have obstructing stent, pancreatic cancer with metastasis, status post biliary stent obstructing, status post internal and external biliary drainage placement, jaundice secondary to biliary stent obstruction, elevated liver test due to biliary stent obstruction - is trending down. Leukocytosis is improving. History of chronic hepatitis C, fibromyalgia. PLAN: Continue present treatment. Repeat labs. Oncologist is on the case. We will follow up. Georgina Ferrara MD MTDD
[2018-03-16] MEDS: LIPASE PO SCH ×3 (10:01→22:05)
[2018-03-16] MEDS: AMYLASE PO SCH ×3 (10:01→22:05)
[2018-03-16] MEDS: PROTEASE PO SCH ×3 (10:01→22:05)
[2018-03-16] MEDS: Enoxaparin 30 mg Syringe SC SCH (10:02)
[2018-03-16] MEDS: POLYETHYLENE GLYCOL 3350 17 GM/Dose PACKET PO SCH (10:03)
--- NOTE | 2018-03-16 11:05 | CP.PCM.PN ---
Subjective - Date & Time of Evaluation Date of Evaluation: 03/16/18 Time of Evaluation: 09:00 - Subjective Subjective: PGY-2 GI progress note Patient seen and examined at the bedside. Patient is status post biliary drain placement, bilious fluid noted. Patient endorses she is has right side abd pain today, 05/17. She states that her pain is better with her current pain medication. Pain is located anterior to the drain incision site. She denies any nausea, vomiting, fever or chills. Patient reports constipation, last BM 3 days ago. She states that prune juice helps. She is tolerating her soft diet. Objective - Vital Signs/Intake and Output Vital Signs (last 24 hours): Temp Pulse Resp BP Pulse Ox 98.4 F 89 18 130/90 98 03/15/18 16:49 03/15/18 16:49 03/15/18 16:49 03/16/18 10:04 03/15/18 16:49 Intake and Output: 03/16/18 03/16/18 06:59 18:59 Intake Total 760 Output Total 215 Balance 545 - Medications Medications: Current Medications Acetaminophen (Tylenol 325mg Tab) 650 mg PO Q4H PRN PRN Reason: Pain, Mild (1-3) Albuterol/Ipratropium (Duoneb 3 Mg/0.5 Mg (3 Ml) Ud) 3 ml IH Q2H PRN PRN Reason: Shortness of Breath Albuterol/Ipratropium (Duoneb 3 Mg/0.5 Mg (3 Ml) Ud) 3 ml IH [id number] [facility] Last Admin: 03/16/18 07:15 Dose: Not Given Enoxaparin Sodium (Lovenox) 30 mg SC DAILY [facility] PRN Reason: Protocol Last Admin: 03/16/18 10:02 Dose: 30 mg Sodium Chloride (Sodium Chloride 0.45%) 1,000 mls @ 80 mls/hr IV .[id number] [facility] Stop: 03/17/18 08:00 Last Admin: 03/15/18 20:00 Dose: 80 mls/hr Insulin Human Regular (Humulin R Med) 0 units SC ACHS [facility] PRN Reason: Protocol Last Admin: 03/15/18 21:46 Dose: Not Given Lisinopril (Zestril) 10 mg PO DAILY [facility] Last Admin: 03/16/18 10:04 Dose: 10 mg Metoclopramide HCl (Reglan) 5 mg PO TID [facility] Last Admin: 03/16/18 10:03 Dose: 5 mg Metoprolol Tartrate (Lopressor) 25 mg PO DAILY [facility] Last Admin: 03/16/18 10:02 Dose: 25 mg Montelukast Sodium (Singulair) 10 mg PO DAILY [facility] Last Admin: 03/16/18 10:03 Dose: 10 mg Morphine Sulfate (Morphine) 2 mg IVP Q6H PRN PRN Reason: Pain, severe (8-10) Last Admin: 03/16/18 06:51 Dose: 2 mg Lipase/Protease/Amylase [Creon Dr 3, 000 Units Capsule] ( Home Med) 3,000 cap PO TID [facility] Last Admin: 03/16/18 10:01 Dose: Not Given Ondansetron HCl (Zofran Inj) 4 mg IVP Q6H PRN PRN Reason: Nausea/Vomiting Last Admin: 03/15/18 21:45 Dose: 4 mg Pantoprazole Sodium (Protonix Ec Tab) 40 mg PO 0600 [facility] Last Admin: 03/16/18 06:22 Dose: 40 mg Polyethylene Glycol (Miralax) 17 gm PO DAILY [facility] Last Admin: 03/16/18 10:03 Dose: 17 gm Pregabalin (Lyrica) 75 mg PO DAILY [facility] Last Admin: 03/16/18 10:02 Dose: 75 mg Tramadol HCl (Ultram) 50 mg PO TID PRN PRN Reason: Pain, moderate (4-7) Last Admin: 03/16/18 09:35 Dose: 50 mg Zolpidem Tartrate (Ambien) 5 mg PO HS PRN; Protocol PRN Reason: Insomnia Last Admin: 03/15/18 21:45 Dose: 5 mg - Labs Labs: 03/16/18 05:00 03/16/18 06:30 PT 18.2 SECONDS (9.4-12.5) H 03/11/18 07:30 INR 1.57 (0.93-1.08) H 03/11/18 07:30 APTT 32.5 Seconds (25.1-36.5) 03/12/18 06:00 - Constitutional Appears: Well, No Acute Distress - Head Exam Head Exam: ATRAUMATIC, NORMOCEPHALIC - Eye Exam Eye Exam: EOMI - ENT Exam ENT Exam: Mucous Membranes Moist - Respiratory Exam Respiratory Exam: Clear to Ausculation Bilateral, NORMAL BREATHING PATTERN. absent: Chest Wall Tenderness, Decreased Breath Sounds, Rales, Rhonchi, Wheezes , Respiratory Distress - Cardiovascular Exam Cardiovascular Exam: REGULAR RHYTHM, +S1, +S2. absent: Bradycardia, Tachycardia , Murmur - GI/Abdominal Exam GI & Abdominal Exam: Soft, Tenderness (Right side anterior to drain placement), Normal Bowel Sounds. absent: Distended, Firm, Guarding - Extremities Exam Extremities Exam: Normal Inspection. absent: Pedal Edema, Tenderness - Neurological Exam Neurological Exam: Alert, Awake, Oriented x3 - Skin Skin Exam: Dry, Intact, Normal Color, Warm Assessment and Plan - Assessment and Plan (Free Text) Assessment: 67 year old female with a history of HTN, DM II, COPD, Sleep apnea, colon resection, TIA & Pancreatic Cancer w/ mets (last chemotherapy on early 12/2017) presents with jaundice and found to have obstructing stent s/p internal/external biliary drain placement. Pancreatic cancer with metastasis, status post biliary stent, now obstructed, S/ P internal/external biliary drain placement on 03/10/2018 Jaundice secondary to biliary stent obstruction Elevated LFTs secondary biliary stent obstruction Leukocystosis- improving Chronic hepatitis C Diabetes mellitus type 2 Fibromyalgia Plan: continue to monitor LFTs H&H stable, continue to trend H&H and monitor for overt GI bleed continued GI prophylaxis continue on pancreatic enzyme On Reglan continue IV antibiotics currently soft diet, advance as tolerated Status post transhepatic cholangiogram with IR, found moderate to severe intrahepatic bile duct dilatation, a malignant obstruction of the CBD just below the cystic duct is seen which extends 3 cm above the existing stent. patient is to follow up outpatient for internalization of drain patient is stable from GI perspective Seen and discussed with Dr. Merchant.
[2018-03-16] MEDS: Morphine 4 mg/ml ISec IVP PRN ×2 (15:04→20:34)
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
--- NOTE | 2018-03-16 17:55 | PN ---
DATE: 03/16/2018 PULMONARY PROGRESS NOTE REFERRING PHYSICIAN: Dr. Ferrara. SUBJECTIVE: She is lying in the bed, head at 45 degrees. Still has some right upper quadrant pain which improves with the pain medication. No headache, no rhinitis. No nausea, no vomiting. No leg pain or leg swelling. OBJECTIVE: GENERAL: In no acute distress. VITAL SIGNS: Temperature is 98, heart rate is 89, respiratory rate is 18, blood pressure 130/90, pulse ox 98% on room air. HEENT: Moist mucous membrane. Crowded airway. NECK: Supple. No JVD. LUNGS: Fair airflow with rhonchi. HEART: S1 and S2. ABDOMEN: Positive bowel sounds. Right upper quadrant tenderness. EXTREMITIES: There is no edema. NEUROLOGIC: Awake, alert, and follows simple command. MEDICATIONS: She is on Ambien 5 mg at bedtime p.r.n., DuoNeb every 2 hours p.r.n. and every 6 hours [id number]. She is also on metoprolol tartrate 25 mg daily, Lovenox 30 mg subcu daily, Lyrica 75 mg daily, MiraLax 17 g daily, Protonix 40 mg daily, Reglan 5 mg three times a day, Singulair 10 mg daily. She is on Tylenol p.r.n. basis, Ultram 50 mg every 8 hours p.r.n., Zestril 10 mg daily, Zofran 4 mg every 6 hours p.r.n. LABORATORY DATA: Hemoglobin 9.4, hematocrit 28.8, WBC 16, and platelets 471. Sodium 142, potassium 3.7, chloride 105, bicarbonate 27. BUN 5, creatinine 0.5. Glucose . Calcium 8.8. Total bili 6.1, AST 75, ALT 35, alk phos is 216. Albumin is 3. Microbiology, blood culture one out of two has a coag-negative staph. IMPRESSION AND PLAN: Metastatic pancreatic cancer involving the liver, bones, lungs, and biliary ductal system with obstruction of the biliary stent requiring percutaneous drainage; chronic obstructive lung disease; obstructive sleep apnea syndrome; diabetes; alcohol abuse. Pulmonary point of view, she is doing okay. Aspiration precaution, sleep apnea precaution. Careful with sedation. Refused to use CPAP. Continue pain management. Gastric prophylaxis, DVT prophylaxis, seen by Oncology, will benefit from chemotherapy as soon as possible, awaiting to internalization of biliary drainage. Thank you and we will follow with you. Linnea Stephen MD
[2018-03-16] MEDS: Sodium Chloride 0.45% 1,000 ML IV SCH (20:35)
--- NOTE | 2018-03-16 23:43 | PN ---
DATE: 03/16/2018 SUBJECTIVE: The patient is 67-year-old female. Patient was seen and examined at the bedside, looking comfortable. Complaining some time of her abdominal pain, but no nausea, vomiting, or diarrhea. No hematuria or hematochezia. No swelling of the legs. No chest pain. No palpitation. No headache. No dizziness. PHYSICAL EXAMINATION: VITAL SIGNS: Temperature 98, heart rate 89, respiratory rate 18, blood pressure 130/90, pulse oximetry 98% on room air. HEENT: Head, normocephalic and atraumatic. Eyes, PERRLA. Extraocular muscles intact. Conjunctivae clear. Nose: Patent. Mucous membranes moist. NECK: Supple. No carotid bruit, JVD, or thyromegaly. CHEST: Bilaterally symmetrical. HEART: S1 and S2 positive. LUNGS: Clear to auscultation. ABDOMEN: Soft. Bowel sounds present. No organomegaly. EXTREMITIES: No edema. No cyanosis. NEUROLOGIC: Patient is awake and alert. Follows simple commands. MEDICATIONS: Ambien, DuoNeb, insulin, metoprolol, Lovenox, Lyrica, Protonix, Reglan, Singulair, Tylenol, tramadol, Zestril, Zofran. LABORATORY DATA: Hemoglobin 9.4, hematocrit 28.8, white blood cells 16, platelets 471. Sodium 142, potassium 3.7, BUN 5, creatinine 0.5, bilirubin 6.1, AST 75, ALT 35. Microbiology blood culture 1 out of 2 has coagulase-negative Staph. ASSESSMENT AND PLAN: Ms. Hortensia Love is a 67-year-old lady with metastatic pancreatic cancer involving the liver, lungs, bones and biliary ductal system with obstruction of the biliary stent requiring percutaneous drainage. History of hepatitis C positive, chronic obstructive lung disease, obstructive sleep apnea syndrome, alcohol abuse, diabetes mellitus. The patient is doing better. Liver functions are trending down, sleep apnea precautions. Gastrointestinal and deep venous thrombosis prophylaxis. Repeat labs. We will follow up. Georgina Ferrara MD
[2018-03-17] MEDS: Morphine 4 mg/ml ISec IVP PRN (02:14)
[2018-03-17] MEDS: Pantoprazole 40 mg EC Tab PO SCH (05:05)
[2018-03-17 06:47] LABS: BASO # 0.02 K/mm3 (0.0-2.0); BASO % 0.1 % (0.0-3.0); EOS # 0.1 (0.0-0.7); EOS % 0.7 % (1.5-5.0); GRAN # 14.58 (1.4-6.5); GRAN % 81.4 % (50.0-68.0); HEMOGLOBIN 9.5 g/dL (12.0-16.0); LYMPH # 1.9 (1.2-3.4); LYMPH % 10.3 % (22.0-35.0); MEAN CELL VOLUME 81.4 fl (80.0-105.0); MEAN CORPUSCULAR HEMOGLOBIN 26.3 pg (25.0-35.0); MEAN CORPUSCULAR HGB CONC 32.3 g/dl (31.0-37.0); MEAN PLATELET VOLUME 8.5 fl (7.0-11.0); MONO # 1.3 (0.1-0.6); MONO % 7.5 % (1.0-6.0); RBC 3.61 10^6/uL (3.5-6.1); RED CELL DISTRIBUTION WIDTH 20.7 % (11.5-14.5); WHITE BLOOD COUNT 17.9 10^3/ul (4.5-11.0)
[2018-03-17 07:09] LABS: BLOOD UREA NITROGEN 5 mg/dL (7-21); GFR AFRICAN-AMERICAN > 60; GFR NON-AFRICAN AMERICAN > 60
[2018-03-17 07:19] LABS: ALB/GLOB RATIO 0.8 (1.1-1.8); ALBUMIN 3.2 g/dL (3.0-4.8); ALT/SGPT 44 U/L (7-56); AST/SGOT 72 U/L (14-36); CALCIUM 8.8 mg/dL (8.4-10.5)
[2018-03-17 07:23] LABS: INR 1.28 (0.93-1.08); PROTHROMBIN TIME 14.8 SECONDS (9.4-12.5)
[2018-03-17 07:24] LABS: PARTIAL THROMBOPLASTIN TIME 27.8 Seconds (25.1-36.5)
[2018-03-17] MEDS: Albuterol-Ipratrop 3 mg / 0.5 (3 ml) UD IH SCH (08:04)
[2018-03-17] MEDS: Insulin Reg-MEDIUM-Coverage SC SCH (08:13)
[2018-03-17 08:30] VITALS: BP 165/116; PULSE 89; RESP 18; TEMP 98.7; O2SAT 100
[2018-03-17] MEDS: PROTEASE PO SCH (10:41)
[2018-03-17] MEDS: AMYLASE PO SCH (10:41)
[2018-03-17] MEDS: LIPASE PO SCH (10:41)
[2018-03-17] MEDS: Enoxaparin 30 mg Syringe SC SCH (10:48)
[2018-03-17] MEDS: POLYETHYLENE GLYCOL 3350 17 GM/Dose PACKET PO SCH (10:48)
--- NOTE | 2018-03-17 11:28 | CP.PCM.PN ---
Subjective - Date & Time of Evaluation Date of Evaluation: 03/17/18 Time of Evaluation: 09:00 - Subjective Subjective: PGY-2 GI progress note Patient seen and examined at the bedside. Patient is status post biliary drain placement, bilious fluid noted. Patient endorses she is has right side abd pain with palpitation or movement, not at rest. Pain improved with her current pain medication. Pain is located anterior to the drain incision site. She denies any nausea, vomiting, fever or chills. Patient reports constipation, last BM 4 days ago. She states that prune juice helps. She is tolerating her soft diet. Objective - Vital Signs/Intake and Output Vital Signs (last 24 hours): Temp Pulse Resp BP Pulse Ox 98.7 F 89 18 165/116 H 100 03/17/18 08:29 03/17/18 08:29 03/17/18 08:29 03/17/18 08:29 03/17/18 08:29 Intake and Output: 03/17/18 03/17/18 06:59 18:59 Intake Total 420 Output Total 700 Balance -280 - Medications Medications: Current Medications Acetaminophen (Tylenol 325mg Tab) 650 mg PO Q4H PRN PRN Reason: Pain, Mild (1-3) Albuterol/Ipratropium (Duoneb 3 Mg/0.5 Mg (3 Ml) Ud) 3 ml IH Q2H PRN PRN Reason: Shortness of Breath Albuterol/Ipratropium (Duoneb 3 Mg/0.5 Mg (3 Ml) Ud) 3 ml IH [id number] [facility] Last Admin: 03/17/18 08:04 Dose: Not Given Enoxaparin Sodium (Lovenox) 30 mg SC DAILY [facility] PRN Reason: Protocol Last Admin: 03/17/18 10:48 Dose: 30 mg Insulin Human Regular (Humulin R Med) 0 units SC ACHS [facility] PRN Reason: Protocol Last Admin: 03/17/18 08:13 Dose: Not Given Lisinopril (Zestril) 10 mg PO DAILY [facility] Last Admin: 03/17/18 10:49 Dose: 10 mg Metoclopramide HCl (Reglan) 5 mg PO TID [facility] Last Admin: 03/17/18 10:48 Dose: 5 mg Metoprolol Tartrate (Lopressor) 25 mg PO DAILY [facility] Last Admin: 03/17/18 10:48 Dose: 25 mg Montelukast Sodium (Singulair) 10 mg PO DAILY [facility] Last Admin: 03/17/18 10:48 Dose: 10 mg Morphine Sulfate (Morphine) 3 mg IVP Q6H PRN PRN Reason: Pain, severe (8-10) Last Admin: 03/17/18 02:14 Dose: 3 mg Lipase/Protease/Amylase [Creon Dr 3, 000 Units Capsule] ( Home Med) 3,000 cap PO TID [facility] Last Admin: 03/17/18 10:41 Dose: Not Given Ondansetron HCl (Zofran Inj) 4 mg IVP Q6H PRN PRN Reason: Nausea/Vomiting Last Admin: 03/17/18 02:14 Dose: 4 mg Pantoprazole Sodium (Protonix Ec Tab) 40 mg PO 0600 [facility] Last Admin: 03/17/18 05:05 Dose: 40 mg Polyethylene Glycol (Miralax) 17 gm PO DAILY [facility] Last Admin: 03/17/18 10:48 Dose: 17 gm Pregabalin (Lyrica) 75 mg PO DAILY [facility] Last Admin: 03/17/18 10:48 Dose: 75 mg Tramadol HCl (Ultram) 50 mg PO TID PRN PRN Reason: Pain, moderate (4-7) Last Admin: 03/17/18 05:04 Dose: 50 mg Zolpidem Tartrate (Ambien) 5 mg PO HS PRN; Protocol PRN Reason: Insomnia Last Admin: 03/16/18 22:14 Dose: 5 mg - Labs Labs: 03/17/18 06:30 03/17/18 06:30 PT 14.8 SECONDS (9.4-12.5) H 03/17/18 06:30 INR 1.28 (0.93-1.08) H 03/17/18 06:30 APTT 27.8 Seconds (25.1-36.5) 03/17/18 06:30 - Constitutional Appears: Well, No Acute Distress - Head Exam Head Exam: ATRAUMATIC, NORMOCEPHALIC - Eye Exam Eye Exam: EOMI, Normal appearance - ENT Exam ENT Exam: Mucous Membranes Moist - Neck Exam Neck Exam: Full ROM - Respiratory Exam Respiratory Exam: Clear to Ausculation Bilateral, NORMAL BREATHING PATTERN. absent: Decreased Breath Sounds, Rales, Rhonchi, Wheezes, Respiratory Distress - Cardiovascular Exam Cardiovascular Exam: REGULAR RHYTHM, +S1, +S2. absent: Bradycardia, Tachycardia , Murmur - GI/Abdominal Exam GI & Abdominal Exam: Soft, Tenderness (right sided), Normal Bowel Sounds. absent: Distended, Firm - Extremities Exam Extremities Exam: Normal Inspection. absent: Pedal Edema, Tenderness - Neurological Exam Neurological Exam: Alert, Awake, Oriented x3 Assessment and Plan - Assessment and Plan (Free Text) Assessment: 67 year old female with a history of HTN, DM II, COPD, Sleep apnea, colon resection, TIA & Pancreatic Cancer w/ mets (last chemotherapy on early 12/2017) presents with jaundice and found to have obstructing stent s/p internal/external biliary drain placement. Pancreatic cancer with metastasis, status post biliary stent, now obstructed, S/ P internal/external biliary drain placement on 03/10/2018 Jaundice secondary to biliary stent obstruction Elevated LFTs secondary biliary stent obstruction- improving Leukocystosis Chronic hepatitis C Diabetes mellitus type 2 Fibromyalgia Plan: continue to monitor LFTs H&H stable, continue to trend H&H and monitor for overt GI bleed continued GI prophylaxis continue on pancreatic enzyme On Reglan constipation continue miralax, start colase consider relistor for opioid induced constipation leukocytosis, continue IV antibiotics ID following currently soft diet, advance as tolerated Status post transhepatic cholangiogram with IR, found moderate to severe intrahepatic bile duct dilatation, a malignant obstruction of the CBD just below the cystic duct is seen which extends 3 cm above the existing stent. patient is to follow up outpatient for internalization of drain patient is stable from GI perspective Seen and discussed with Dr. Merchant.
--- NOTE | 2018-03-17 13:15 | PN ---
DATE: 03/17/2018 PULMONARY PROGRESS NOTE REFERRING PHYSICIAN: Georgina Ferrara MD. SUBJECTIVE: She is sitting on side of the bed. Night was unremarkable. Wants to go home. No headache. No rhinitis. No shortness of breath. Still has right upper quadrant pain. Has a percutaneous biliary drainage, which is draining well. No leg pain or leg swelling. OBJECTIVE: GENERAL: In no acute distress. VITAL SIGNS: Temperature is 98, heart rate is 89, respiratory rate is 18, blood pressure 165/116, pulse ox 100% on room air. HEENT: Moist mucous membrane. Crowded airway. NECK: Supple. No JVD. LUNGS: Have a fair airflow with rhonchi. HEART: S1 and S2. ABDOMEN: Positive bowel sound. Right upper quadrant has mild tenderness. EXTREMITIES: There is no edema. NEUROLOGICAL: Awake, alert. Follows simple command. LABORATORY DATA: Shows hemoglobin 9.5, hematocrit 29.4, WBC is 17.9, platelet count is 457. INR 1.28, PTT is 28. Sodium 141, potassium 3.6, chloride 105, bicarbonate 27, BUN 5, creatinine 0.6, glucose 152, calcium 8.8, total bili 5.5, AST 72, ALT 44, alk phos is 227, albumin is 3.2. Microbiology: One out of two blood cultures has coag-negative Staph. MEDICATIONS: She is on Ambien 5 mg at bedtime p.r.n., Colace 100 mg twice a day, DuoNeb every 2 hours p.r.n. and every 6 hours [id number], insulin coverage, metoprolol tartrate 25 mg daily, Lovenox 30 mg subcu daily, Lyrica 75 mg daily, MiraLax 17 g daily, morphine 3 mg IV every 6 hours p.r.n., Protonix 40 mg daily, Reglan is 5 mg three times a day, Singulair 10 mg daily, Tylenol p.r.n., Ultram 50 mg three times a day, Zestril 10 mg daily, Zofran p.r.n. basis. IMPRESSION AND PLAN: Metastatic pancreatic cancer involving the liver, bones, lungs, biliary ductal system ending obstruction of the stent requiring percutaneous new catheter, chronic obstructive lung disease, sleep apnea syndrome, diabetes, alcohol abuse, mildly elevated blood pressure now. Already on lisinopril. Anxious, wants to go home. Understand the risks. Need close monitoring even including no infection because of mildly elevated leukocytes. Continue pain management, bronchodilator. Being followed by Infectious Disease. We will leave antibiotic choices as per them and also being followed by Gastroenterology. Thank you and we will follow with you. Linnea Stephen MD
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
== END 2018-03-17 14:11 | disposition left against medical advice (07) | DRG 435 ==
LOC: ED 16:38 → ERH 22:59 → ICU 03-10 01:33 → 3RSO 03-11 17:36
PROVIDERS: ADMIT Internal Medicine; ATTEND Internal Medicine
PROC: 3E033GC Introduction of Other Therapeutic Substance into Peripheral Vein, Percutaneous Approach (ICD-10-PCS; principal; 2018-03-09)
PROC: 0F9930Z Drainage of Common Bile Duct with Drainage Device, Percutaneous Approach (ICD-10-PCS; 2018-03-10)
DX: C25.0 Malignant neoplasm of head of pancreas (principal); I82.220 Acute embolism and thrombosis of inferior vena cava; K83.1 Obstruction of bile duct; K83.0 Cholangitis; C78.7 Secondary malignant neoplasm of liver and intrahepatic bile duct; C78.02 Secondary malignant neoplasm of left lung; C78.01 Secondary malignant neoplasm of right lung; C79.51 Secondary malignant neoplasm of bone; R64 Cachexia; J43.9 Emphysema, unspecified; G47.33 Obstructive sleep apnea (adult) (pediatric); K29.70 Gastritis, unspecified, without bleeding; E87.6 Hypokalemia; B18.2 Chronic viral hepatitis C; E11.43 Type 2 diabetes mellitus with diabetic autonomic (poly)neuropathy; K31.84 Gastroparesis; E11.65 Type 2 diabetes mellitus with hyperglycemia; I10 Essential (primary) hypertension; K21.9 Gastro-esophageal reflux disease without esophagitis; E83.51 Hypocalcemia; M79.7 Fibromyalgia; K59.00 Constipation, unspecified; D64.9 Anemia, unspecified; F41.9 Anxiety disorder, unspecified; Z85.038 Personal history of other malignant neoplasm of large intestine; Z86.73 Personal history of transient ischemic attack (TIA), and cerebral infarction without residual deficits; Z79.84 Long term (current) use of oral hypoglycemic drugs; Z68.27 Body mass index [BMI] 27.0-27.9, adult; Z86.718 Personal history of other venous thrombosis and embolism; Z86.59 Personal history of other mental and behavioral disorders

== ENCOUNTER 2018-04-09 11:03 | Inpatient (IN) | payer MEDICARE, OTHER ==
[2018-04-09 11:14] VITALS: BMI 28.3
[2018-04-09] MEDS ORDERED: Morphine 4 mg/ml ISec IVP STA ×2 (11:27→13:27)
[2018-04-09] MEDS ORDERED: Sodium Chloride 0.9% 500 ML IV STA (11:27)
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
[2018-04-09 12:36] LABS: ALB/GLOB RATIO 0.8 (1.1-1.8); ALBUMIN 3.4 g/dL (3.0-4.8); ALT/SGPT 21 U/L (7-56); AST/SGOT 61 U/L (14-36); BLOOD UREA NITROGEN 4 mg/dL (7-21); CALCIUM 9.1 mg/dL (8.4-10.5); GFR AFRICAN-AMERICAN > 60; GFR NON-AFRICAN AMERICAN > 60; LIPASE 630 U/L (23-300)
[2018-04-09 12:42] LABS: BASO # 0.01 K/mm3 (0.0-2.0); BASO % 0.1 % (0.0-3.0); EOS # 0.1 (0.0-0.7); EOS % 0.6 % (1.5-5.0); GRAN # 8.23 (1.4-6.5); HEMOGLOBIN 10.6 g/dL (12.0-16.0); LYMPH # 1.2 (1.2-3.4); LYMPH % 11.6 % (22.0-35.0); MEAN CELL VOLUME 80.8 fl (80.0-105.0); MEAN CORPUSCULAR HGB CONC 32.2 g/dl (31.0-37.0); MEAN PLATELET VOLUME 8.7 fl (7.0-11.0); MONO # 0.7 (0.1-0.6); MONO % 6.7 % (1.0-6.0); RBC 4.07 10^6/uL (3.5-6.1); WHITE BLOOD COUNT 10.2 10^3/ul (4.5-11.0)
--- NOTE | 2018-04-09 16:56 | CARD ---
APPROVED REPORT EKG Measurement Heart [id number] <Conclusion> Normal sinus rhythm Nonspecific T wave abnormality Prolonged QT Abnormal ECG
[2018-04-09] MEDS ORDERED: Pneumococcal 23-Valent Vaccine IM ONE (17:05)
[2018-04-09] MEDS: Albuterol-Ipratrop 3 mg / 0.5 (3 ml) UD IH SCH ×2 (19:00→20:19)
[2018-04-09] MEDS: HYDROmorphone 0.5 mg/0.5 ml ISec IVP PRN (21:56)
[2018-04-09] MEDS: Insulin Reg-LOW-Coverage SC SCH (22:00)
--- NOTE | 2018-04-09 23:29 | CP.PCM.PN ---
Subjective - Date & Time of Evaluation Date of Evaluation: 04/09/18 Time of Evaluation: 23:29 - Subjective Subjective: Called for RUQ ,right shoulder pain. See next note. Objective - Vital Signs/Intake and Output Vital Signs (last 24 hours): Temp Pulse Resp BP Pulse Ox 97.7 F 80 18 127/88 100 04/09/18 16:24 04/09/18 20:20 04/09/18 16:24 04/09/18 16:24 04/09/18 15:00 Intake and Output: 04/09/18 04/10/18 18:59 06:59 Intake Total 660 Balance 660 - Medications Medications: Current Medications Acetaminophen (Tylenol 325mg Tab) 650 mg PO Q4H PRN PRN Reason: pain fever Albuterol/Ipratropium (Duoneb 3 Mg/0.5 Mg (3 Ml) Ud) 3 ml IH [id number] [facility] Last Admin: 04/09/18 20:19 Dose: 3 ml Glipizide (Glucotrol Xl) 10 mg PO DAILY [facility] Hydromorphone HCl (Dilaudid) 0.5 mg IVP Q4H PRN PRN Reason: Pain, Mild (1-3) Last Admin: 04/09/18 21:56 Dose: 0.5 mg Insulin Human Regular (Humulin R Low) 0 units SC ACHS [facility] PRN Reason: Protocol Last Admin: 04/09/18 22:00 Dose: Not Given Lisinopril (Zestril) 10 mg PO DAILY [facility] Metoclopramide HCl (Reglan) 5 mg PO AC [facility] Last Admin: 04/09/18 17:49 Dose: 5 mg Metoprolol Tartrate (Lopressor) 25 mg PO DAILY [facility] Montelukast Sodium (Singulair) 10 mg PO DAILY [facility] Non-Formulary Medication (Lipase/Protease/Amylase [Creon Dr 3,000 Units Capsule] ) 3,000 cap PO TID [facility] Ondansetron HCl (Zofran Inj) 4 mg IVP Q6 PRN PRN Reason: Nausea/Vomiting Pantoprazole Sodium (Protonix Ec Tab) 40 mg PO DAILY [facility] Pregabalin (Lyrica) 75 mg PO DAILY [facility]
[2018-04-10] MEDS: Albuterol-Ipratrop 3 mg / 0.5 (3 ml) UD IH SCH ×5 (01:10→20:47)
--- NOTE | 2018-04-10 01:21 | CP.PCM.PN ---
Subjective - Date & Time of Evaluation Date of Evaluation: 04/10/18 Time of Evaluation: :18 - Subjective Subjective: Patient was seen at bedside. She complained of RUQ pain and right shoulder pain. Pain is mild , intermittent, radiating to right shoulder. She had received dilaudid 0.5 mg IV half hour before nurse called me. Denies N/V, sob, sweating. Medical record was reviewed. This 67 year old woman is admitted with nausea, vomiting , abdominal pain. Has PMH of HTN,DM II, COPD, duzziness, TIA, Hepatitis C. Objective - Vital Signs/Intake and Output Vital Signs (last 24 hours): Temp Pulse Resp BP Pulse Ox 97.7 F 80 18 127/88 100 04/09/18 16:24 04/09/18 20:20 04/09/18 16:24 04/09/18 16:24 04/09/18 15:00 Intake and Output: 04/09/18 04/10/18 18:59 06:59 Intake Total 660 Balance 660 - Medications Medications: Current Medications Acetaminophen (Tylenol 325mg Tab) 650 mg PO Q4H PRN PRN Reason: pain fever Albuterol/Ipratropium (Duoneb 3 Mg/0.5 Mg (3 Ml) Ud) 3 ml IH [id number] [facility] Last Admin: 04/10/18 01:10 Dose: 3 ml Glipizide (Glucotrol Xl) 10 mg PO DAILY [facility] Hydromorphone HCl (Dilaudid) 0.5 mg IVP Q4H PRN PRN Reason: Pain, Mild (1-3) Last Admin: 04/09/18 21:56 Dose: 0.5 mg Insulin Human Regular (Humulin R Low) 0 units SC ACHS [facility] PRN Reason: Protocol Last Admin: 04/09/18 22:00 Dose: Not Given Lisinopril (Zestril) 10 mg PO DAILY [facility] Metoclopramide HCl (Reglan) 5 mg PO AC [facility] Last Admin: 04/09/18 17:49 Dose: 5 mg Metoprolol Tartrate (Lopressor) 25 mg PO DAILY [facility] Montelukast Sodium (Singulair) 10 mg PO DAILY [facility] Non-Formulary Medication (Lipase/Protease/Amylase [Creon Dr 3,000 Units Capsule] ) 3,000 cap PO TID [facility] Ondansetron HCl (Zofran Inj) 4 mg IVP Q6 PRN PRN Reason: Nausea/Vomiting Pantoprazole Sodium (Protonix Ec Tab) 40 mg PO DAILY [facility] Pregabalin (Lyrica) 75 mg PO DAILY [facility] - Labs Labs: Lab Studies 04/09/18 04/09/18 04/09/18 Range/Units 21:55 16:21 12:08 WBC (4.5-11.0) 10^3/ul RBC (3.5-6.1) 10^6/uL Hgb (12.0-16.0) g/dL Hct (36.0-48.0) % MCV (80.0-105.0) fl MCH (25.0-35.0) pg MCHC (31.0-37.0) g/dl RDW (11.5-14.5) % Plt Count (120.0-450.0) 10^3/uL MPV (7.0-11.0) fl Gran % (50.0-68.0) % Lymph % (Auto) (22.0-35.0) % Metcalfe % (Auto) (1.0-6.0) % Eos % (Auto) (1.5-5.0) % Baso % (Auto) (0.0-3.0) % Gran # (1.4-6.5) Lymph # (Auto) (1.2-3.4) Metcalfe # (Auto) (0.1-0.6) Eos # (Auto) (0.0-0.7) Baso # (Auto) (0.0-2.0) K/mm3 Sodium 144 (132-148) mmol/L Potassium 3.0 L (3.6-5.0) mmol/L Chloride 104 (98-107) mmol/L Carbon Dioxide 29 (21-33) mmol/L Anion Gap 14 (10-20) BUN 4 L (7-21) mg/dL Creatinine 0.5 L (0.7-1.2) mg/dl Est GFR ( Amer) > 60 Est GFR (Non-Af Amer) > 60 POC Glucose (mg/dL) 96 82 (65-110) mg/dL Random Glucose 89 (70-110) mg/dL Calcium 9.1 (8.4-10.5) mg/dL Magnesium 1.8 (1.7-2.2) mg/dL Total Bilirubin 1.4 H (0.2-1.3) mg/dL AST 61 H (14-36) U/L ALT 21 (7-56) U/L Alkaline Phosphatase 216 H (38-126) U/L Total Protein 7.8 (5.8-8.3) g/dL Albumin 3.4 (3.0-4.8) g/dL Globulin 4.4 gm/dL Albumin/Globulin Ratio 0.8 L (1.1-1.8) Lipase 630 H (23-300) U/L 04/09/18 Range/Units 12:08 WBC 10.2 D (4.5-11.0) 10^3/ul RBC 4.07 (3.5-6.1) 10^6/uL Hgb 10.6 L (12.0-16.0) g/dL Hct 32.9 L (36.0-48.0) % MCV 80.8 (80.0-105.0) fl MCH 26.0 (25.0-35.0) pg MCHC 32.2 (31.0-37.0) g/dl RDW 17.0 H (11.5-14.5) % Plt Count 396 (120.0-450.0) 10^3/uL MPV 8.7 (7.0-11.0) fl Gran % 81.0 H (50.0-68.0) % Lymph % (Auto) 11.6 L (22.0-35.0) % Metcalfe % (Auto) 6.7 H (1.0-6.0) % Eos % (Auto) 0.6 L (1.5-5.0) % Baso % (Auto) 0.1 (0.0-3.0) % Gran # 8.23 H (1.4-6.5) Lymph # (Auto) 1.2 (1.2-3.4) Metcalfe # (Auto) 0.7 H (0.1-0.6) Eos # (Auto) 0.1 (0.0-0.7) Baso # (Auto) 0.01 (0.0-2.0) K/mm3 Sodium (132-148) mmol/L Potassium (3.6-5.0) mmol/L Chloride (98-107) mmol/L Carbon Dioxide (21-33) mmol/L Anion Gap (10-20) BUN (7-21) mg/dL Creatinine (0.7-1.2) mg/dl Est GFR ( Amer) Est GFR (Non-Af Amer) POC Glucose (mg/dL) (65-110) mg/dL Random Glucose (70-110) mg/dL Calcium (8.4-10.5) mg/dL Magnesium (1.7-2.2) mg/dL Total Bilirubin (0.2-1.3) mg/dL AST (14-36) U/L ALT (7-56) U/L Alkaline Phosphatase (38-126) U/L Total Protein (5.8-8.3) g/dL Albumin (3.0-4.8) g/dL Globulin gm/dL Albumin/Globulin Ratio (1.1-1.8) Lipase (23-300) U/L - Constitutional Appears: Well, No Acute Distress - Head Exam Head Exam: ATRAUMATIC, NORMAL INSPECTION, NORMOCEPHALIC - Eye Exam Eye Exam: Normal appearance - ENT Exam ENT Exam: Normal External Ear Exam - Neck Exam Neck Exam: Normal Inspection - Respiratory Exam Respiratory Exam: NORMAL BREATHING PATTERN - Cardiovascular Exam Cardiovascular Exam: absent: JVD - GI/Abdominal Exam GI & Abdominal Exam: Soft, Normal Bowel Sounds. absent: Distended, Firm, Guarding, Rigid, Tenderness, Mass, Pulsatile Mass, Rebound - Rectal Exam Rectal Exam: Deferred - Exam Additional comments: Deferred. - Extremities Exam Extremities Exam: Normal Inspection - Back Exam Back Exam: NORMAL INSPECTION - Neurological Exam Neurological Exam: Alert, Awake, Oriented x3 - Psychiatric Exam Psychiatric exam: Normal Affect, Normal Mood - Skin Skin Exam: Normal Color Assessment and Plan - Assessment and Plan (Free Text) Assessment: Abdominal pain. Right shoulder pain. Right shoulder arthritis. Metastatic pancreatic cancer. HTN. DM. Plan: Toradol 30 mg IV x 1. Continue present management. Re evaluate prn.
[2018-04-10] MEDS: HYDROmorphone 0.5 mg/0.5 ml ISec IVP PRN ×5 (04:05→21:22)
--- NOTE | 2018-04-10 07:09 | HP ---
CHIEF COMPLAINT: Abdominal pain, nausea, vomiting. HISTORY OF PRESENT ILLNESS: Ms. Hortensia Love is a 67-year-old female whose past medical history include metastatic pancreatic cancer for which she is no longer receiving treatment, but oncologist is on the case, came to the emergency room for one day duration of nausea, vomiting, abdominal pain. The patient noticed that she is light smoker and does not drink. History of heavy drinking and heavy smoking. The patient denies fevers or chills, headache, dizziness, chest pain, shortness of breath, dyspnea on exertion, cough, diarrhea or back pain, neck pain or urinary and bowel changes. PAST MEDICAL HISTORY: History of pancreatic cancer with metastasis, hypertension, COPD, dizziness, TIA, diabetes mellitus, pancreatic stage III cancer with mets to the lung. Last chemo was given on 07/15/2017, stopped due to sepsis, hepatitis C, never got treatment, falls, colon surgery, colon resection, liver biopsy, schizophrenia, depression, history of appendectomy, EGD. FAMILY HISTORY: Father and mother, noncontributory. HABITS: History of heavy smoking and now she is a light smoker. History of heavy drinking. No substance abuse as per the patient recently. ALLERGIES: THE PATIENT IS NOT ALLERGIC WITH ANY MEDICATION. HOME MEDICATIONS: Glipizide, lisinopril, Lopressor, Singulair, morphine, Lyrica, Reglan. REVIEW OF SYSTEMS: The patient is seen and examined on the bed side in the emergency room. [id number] and son was sitting on the bed side. No fever, no chills. No shortness of breath or coughing. No fatigue. No palpitation. Having abdominal pain, nausea and vomiting. No urinary changes. No back pain, neck pain. No headache or dizziness. PHYSICAL EXAMINATION VITAL SIGNS: Temperature 97.7, pulse 95, respiratory rate 20, blood pressure 135/110, pulse oximetry 100. HEENT: Head normocephalic and atraumatic. Eyes, PERRLA. Extraocular muscles intact. Conjunctivae clear. Nose patent. Mucous membranes moist. NECK: Supple. No carotid bruit, JVD, or thyromegaly. CHEST: Bilaterally symmetrical. HEART: S1 and S2 positive. LUNGS: Clear to auscultation. ABDOMEN: Soft. Bowel sounds present. No organomegaly. EXTREMITIES: No edema. No cyanosis. NEUROLOGIC: Patient is awake and alert. Moving all four extremities. No focal deficits. LABORATORY DATA: White blood cell is 10.3, hemoglobin 10.6, hematocrit 32.9, platelets 396. Sodium 144, potassium 3, BUN noted, creatinine 0.5, glucose 89. ASSESSMENT AND PLAN: Ms. Hortensia Love is a 67-year-old lady with anemia; hypokalemia, replaced; abnormal liver function tests, history of hepatitis C positive, history of pancreatic cancer with metastasis, intractable abdominal pain, intractable nausea and vomiting, history of anemia, history of heavy smoking, history of ethanol abuse; history of chronic obstructive pulmonary disease, transient ischemic attack, diabetes mellitus type 2, colon surgery, appendectomy, colon resection, liver biopsy. Readmitted the patient, started pain medication. History of high lipase. We will call GI consult. Gastrointestinal and deep venous thrombosis prophylaxis. Repeat labs. We will follow up. Georgina Ferrara MD MTDD
[2018-04-10 07:16] LABS: HEMOGLOBIN 10.4 g/dL (12.0-16.0); MEAN CORPUSCULAR HEMOGLOBIN 25.9 pg (25.0-35.0); MEAN PLATELET VOLUME 8.7 fl (7.0-11.0); RBC 4.01 10^6/uL (3.5-6.1); RED CELL DISTRIBUTION WIDTH 17.1 % (11.5-14.5); WHITE BLOOD COUNT 9.3 10^3/ul (4.5-11.0)
[2018-04-10] MEDS: Insulin Reg-LOW-Coverage SC SCH ×4 (07:39→22:14)
[2018-04-10 07:43] LABS: IRON 33 ug/dL (45-180)
[2018-04-10 07:45] LABS: LDL CHOLESTEROL 125 mg/dL (0-129)
[2018-04-10 07:52] LABS: % IRON SATURATION 14 % (20-55); TOTAL IRON BINDING CAPACITY 231 ug/dL (265-497)
[2018-04-10 07:56] LABS: BLOOD UREA NITROGEN 5 mg/dL (7-21); GFR AFRICAN-AMERICAN > 60; GFR NON-AFRICAN AMERICAN > 60; HDL CHOLESTEROL 26 mg/dL (29-60)
[2018-04-10] MEDS: Oxycodone/Acetaminophen 5/325 mg Tab PO PRN ×3 (08:15→23:44)
[2018-04-10] MEDS: Pantoprazole 40 mg EC Tab PO SCH (10:39)
[2018-04-10] MEDS: GlipiZIDE 10 mg SR Tab PO SCH (10:40)
--- NOTE | 2018-04-10 10:51 | CP.PCM.PN ---
Subjective - Date & Time of Evaluation Date of Evaluation: 04/10/18 Time of Evaluation: 10:00 - Subjective Subjective: c/o abdominal pain, no N/V, denies chest pain, no SOB Objective - Vital Signs/Intake and Output Vital Signs (last 24 hours): Temp Pulse Resp BP Pulse Ox 98 F 70 20 145/92 H 98 04/10/18 07:46 04/10/18 10:40 04/10/18 07:46 04/10/18 10:40 04/10/18 07:46 Intake and Output: 04/10/18 04/10/18 06:59 18:59 Intake Total 660 Balance 660 - Medications Medications: Current Medications Acetaminophen (Tylenol 325mg Tab) 650 mg PO Q4H PRN PRN Reason: pain fever Albuterol/Ipratropium (Duoneb 3 Mg/0.5 Mg (3 Ml) Ud) 3 ml IH [id number] [facility] Last Admin: 04/10/18 07:25 Dose: Not Given Glipizide (Glucotrol Xl) 10 mg PO DAILY [facility] Last Admin: 04/10/18 10:40 Dose: 10 mg Hydromorphone HCl (Dilaudid) 1 mg IVP Q4H PRN PRN Reason: Pain, Mild (1-3) Insulin Human Regular (Humulin R Low) 0 units SC ACHS [facility] PRN Reason: Protocol Last Admin: 04/10/18 07:39 Dose: Not Given Lisinopril (Zestril) 10 mg PO DAILY [facility] Last Admin: 04/10/18 10:40 Dose: 10 mg Metoclopramide HCl (Reglan) 5 mg PO [facility] Last Admin: 04/10/18 08:01 Dose: 5 mg Metoprolol Tartrate (Lopressor) 25 mg PO DAILY [facility] Last Admin: 04/10/18 10:39 Dose: 25 mg Montelukast Sodium (Singulair) 10 mg PO DAILY [facility] Last Admin: 04/10/18 10:39 Dose: 10 mg Non-Formulary Medication (Lipase/Protease/Amylase [Creon Dr 3,000 Units Capsule] ) 3,000 cap PO TID [facility] Ondansetron HCl (Zofran Inj) 4 mg IVP Q6 PRN PRN Reason: Nausea/Vomiting Last Admin: 04/10/18 06:39 Dose: 4 mg Oxycodone/Acetaminophen (Percocet 5/325 Mg Tab) 1 tab PO TID PRN PRN Reason: Breakthru pain (4-7) Stop: 04/13/18 10:01 Last Admin: 04/10/18 08:15 Dose: 1 tab Pantoprazole Sodium (Protonix Ec Tab) 40 mg PO DAILY [facility] Last Admin: 04/10/18 10:39 Dose: 40 mg Pregabalin (Lyrica) 75 mg PO DAILY [facility] Last Admin: 04/10/18 10:40 Dose: 75 mg - Labs Labs: 04/10/18 06:30 04/10/18 06:30 - Respiratory Exam Respiratory Exam: Clear to Ausculation Bilateral, NORMAL BREATHING PATTERN - Cardiovascular Exam Cardiovascular Exam: REGULAR RHYTHM - GI/Abdominal Exam GI & Abdominal Exam: Soft, Tenderness, Normal Bowel Sounds - Extremities Exam Extremities Exam: Normal Inspection - Neurological Exam Neurological Exam: Alert, Awake - Skin Skin Exam: Dry, Warm Assessment and Plan (1) Intractable abdominal pain Status: Acute (2) Malignant tumor head pancreas Status: Acute (3) Metastatic cancer Status: Acute - Assessment and Plan (Free Text) Plan: increase dilaudid to 1mg IV q4h, Dr. Ferrara to resume acre of patient in am
[2018-04-10 12:03] LABS: FOLATE 4.2 ng/mL
[2018-04-11] MEDS: HYDROmorphone 0.5 mg/0.5 ml ISec IVP PRN ×3 (01:23→12:07)
[2018-04-11] MEDS ORDERED: EnalaprilAT 1.25 mg/ml Inj IVP STA (02:13)
[2018-04-11] MEDS: Albuterol-Ipratrop 3 mg / 0.5 (3 ml) UD IH SCH ×5 (05:40→19:42)
--- NOTE | 2018-04-11 06:44 | CON ---
DATE: REASON FOR CONSULTATION: Abdominal pain. HISTORY OF PRESENT ILLNESS: This is a 67-year-old patient with metastatic pancreatic cancer, poorly compliant, was recently in the hospital with an obstructive jaundice, had status post PTC done where has internal-external stent placed on 03/10/2018. Patient is now admitted with worsening abdominal pain, nausea, and vomiting. Patient did have a metallic stent placed before. The stent appeared to be about 3 cm obstructed proximally. Hence, the internal-external stent was done through the PTC. Denies any fever. Patient also has a history of gastroparesis. PAST MEDICAL HISTORY: Other past medical history significant for chronic hepatitis C, diabetes mellitus type 2, COPD, GERD, and pancreatic cancer. SURGICAL HISTORY: Significant for colon resection, appendectomy, port placement. FAMILY HISTORY: Noncontributory. ALLERGIES: NO KNOWN DRUG ALLERGY. SOCIAL HISTORY: Positive for alcohol socially. History of cocaine use in the past. Positive for smoking. REVIEW OF SYSTEMS: Positive as above. History of chronic constipation, back pain. PHYSICAL EXAMINATION: GENERAL: Patient did move her bowel today, small amount. Patient is lying on the bed, not in acute distress. VITAL SIGNS: Temperature is 98.2, pulse 59, blood pressure 160/103. HEENT: Atraumatic and anicteric. NECK: Supple. HEART: S1 and S2 heard. LUNGS: Bilateral air entry present. ABDOMEN: Soft. Large hepatomegaly present. The PTC drain noticed. EXTREMITIES: No cyanosis, no clubbing, and no edema. No calf tenderness. NEUROLOGIC: Alert, oriented. Moves all the extremities. LABORATORY DATA: Hemoglobin 10.4, hematocrit 32.5, WBC is 9.3, platelets 318. Chemistry is essentially unremarkable. Potassium is 3.3. Bilirubin and LFTs have improved; total bilirubin has come down to 1.4. Alkaline phosphatase 216. IMPRESSION: 1. This 67-year-old patient with extensive metastatic pancreatic cancer with obstructive jaundice, status post internal-external biliary stent placement, now admitted with abdominal pain. This may be multifactorial etiology. Patient does have chronic pain medication for back pain. Patient also has gastroparesis, diffuse large liver metastatic lesions. 2. Obstructive jaundice. The liver function tests have been improving with significant improvement. RECOMMENDATIONS: 1. Change the diet to low-fat, low-residue, soft mechanical diet. 2. We will star the patient on MiraLax twice daily. Pain medications. Patient is on Reglan. We will continue it only on intermittent courses. Would recommend continue only on intermittent courses. 3. We will start the patient on Protonix. We will continue Protonix 40 mg daily. 4. We will continue to closely follow up her care and suggest further management based on the clinical course. Thang Merchant MD
[2018-04-11] MEDS: Insulin Reg-LOW-Coverage SC SCH ×3 (08:16→16:46)
[2018-04-11] MEDS: Pantoprazole 40 mg EC Tab PO SCH (09:08)
[2018-04-11] MEDS: GlipiZIDE 10 mg SR Tab PO SCH (09:08)
[2018-04-11] MEDS: Oxycodone/Acetaminophen 5/325 mg Tab PO PRN (09:09)
--- NOTE | 2018-04-11 12:19 | CP.PCM.PN ---
<Yeimi Savage - Last Filed: 04/11/18 12:14> Subjective - Date & Time of Evaluation Date of Evaluation: 04/11/18 Time of Evaluation: 07:00 - Subjective Subjective: GI Progress Note for Renetta Petersen PGY2 Patient seen and examined at bedside. There were no acute events as per nursing staff. Patient was resting in bed upon examination. She reports having RUQ pain that is unchanged. As per nursing staff, her biliary drain only drained 30ml overnight. Patient denies chest pain, shortness of breath, nausea/vomiting/ diarrhea, fever/chills, numbness/tingling, dysuria or hematuria. Objective - Vital Signs/Intake and Output Vital Signs (last 24 hours): Temp Pulse Resp BP Pulse Ox 98.4 F 90 20 158/92 H 100 04/11/18 06:00 04/11/18 09:09 04/11/18 06:00 04/11/18 09:09 04/11/18 06:00 Intake and Output: 04/11/18 04/11/18 06:59 18:59 Intake Total 480 Balance 480 - Medications Medications: Current Medications Acetaminophen (Tylenol 325mg Tab) 650 mg PO Q4H PRN PRN Reason: pain fever Albuterol/Ipratropium (Duoneb 3 Mg/0.5 Mg (3 Ml) Ud) 3 ml IH [id number] [facility] Last Admin: 04/11/18 07:38 Dose: Not Given Glipizide (Glucotrol Xl) 10 mg PO DAILY [facility] Last Admin: 04/11/18 09:08 Dose: 10 mg Hydromorphone HCl (Dilaudid) 1 mg IVP Q4H PRN PRN Reason: Pain, Mild (1-3) Last Admin: 04/11/18 12:07 Dose: 1 mg Insulin Human Regular (Humulin R Low) 0 units SC ACHS [facility] PRN Reason: Protocol Last Admin: 04/11/18 12:06 Dose: Not Given Lisinopril (Zestril) 10 mg PO DAILY [facility] Last Admin: 04/11/18 09:09 Dose: 10 mg Metoclopramide HCl (Reglan) 5 mg PO AC [facility] Last Admin: 04/11/18 12:06 Dose: 5 mg Metoprolol Tartrate (Lopressor) 25 mg PO DAILY [facility] Last Admin: 04/11/18 09:08 Dose: 25 mg Montelukast Sodium (Singulair) 10 mg PO DAILY [facility] Last Admin: 04/11/18 09:08 Dose: 10 mg Non-Formulary Medication (Lipase/Protease/Amylase [Creon Dr 3,000 Units Capsule] ) 3,000 cap PO TID [facility] Ondansetron HCl (Zofran Inj) 4 mg IVP Q6 PRN PRN Reason: Nausea/Vomiting Last Admin: 04/10/18 06:39 Dose: 4 mg Oxycodone/Acetaminophen (Percocet 5/325 Mg Tab) 1 tab PO TID PRN PRN Reason: Breakthru pain (4-7) Stop: 04/13/18 10:01 Last Admin: 04/11/18 09:09 Dose: 1 tab Pantoprazole Sodium (Protonix Ec Tab) 40 mg PO DAILY [facility] Last Admin: 04/11/18 09:08 Dose: 40 mg Pregabalin (Lyrica) 75 mg PO DAILY [facility] Last Admin: 04/11/18 09:08 Dose: 75 mg - Labs Labs: 04/10/18 06:30 04/10/18 06:30 - Constitutional Appears: Chronically Ill - Head Exam Head Exam: ATRAUMATIC, NORMAL INSPECTION, NORMOCEPHALIC - Eye Exam Eye Exam: Normal appearance, PERRL Pupil Exam: NORMAL ACCOMODATION - ENT Exam ENT Exam: Mucous Membranes Moist - Respiratory Exam Respiratory Exam: Clear to Ausculation Bilateral, NORMAL BREATHING PATTERN. absent: Rales, Rhonchi, Wheezes - Cardiovascular Exam Cardiovascular Exam: REGULAR RHYTHM, +S1, +S2. absent: Gallop, Rubs, Murmur - GI/Abdominal Exam GI & Abdominal Exam: Soft, Tenderness (RUQ tenderness ), Normal Bowel Sounds - Neurological Exam Neurological Exam: Alert, Awake, CN II-XII Intact - Psychiatric Exam Psychiatric exam: Normal Affect, Normal Mood - Skin Skin Exam: Dry, Warm Assessment and Plan - Assessment and Plan (Free Text) Assessment: This is a 67yo female with past medical history of chronic hep C, pancreatic ca with metastasis, COPD, DM, GERD, gastroparesis, obstructive jaundice s/p internal-external stent and non-compliance who was admitted for 1. Abdominal pain (multifactorial- metastatic ca, pain medication tolerance, gastroparesis) 2. Obstructive jaundice 3. Pancreatic Ca with metastasis Plan: Continue to monitor biliary drain output. Recommend to flush drain if output is low. Flushing instructions as per IR. Continue pain control. Continue low fat, low residual, soft diet. Continue miralax and reglan. Will monitor BMs. Continue protonix. LFTs are stable. Case seen, discussed and reviewed with Dr. Merchant. Renetta Savage PGY2 <Thang Merchant V - Last Filed: 04/11/18 23:36> Objective - Vital Signs/Intake and Output Vital Signs (last 24 hours): Temp Pulse Resp BP Pulse Ox 98.4 F 112 H 20 139/91 H 97 04/11/18 21:36 04/11/18 21:36 04/11/18 21:36 04/11/18 21:36 04/11/18 21:36 Intake and Output: 04/11/18 04/12/18 18:59 06:59 Intake Total 480 660 Balance 480 660 - Medications Medications: Current Medications Acetaminophen (Tylenol 325mg Tab) 650 mg PO Q4H PRN PRN Reason: pain fever Albuterol/Ipratropium (Duoneb 3 Mg/0.5 Mg (3 Ml) Ud) 3 ml IH [id number] [facility] Last Admin: 04/11/18 19:42 Dose: 3 ml Glipizide (Glucotrol Xl) 10 mg PO DAILY [facility] Last Admin: 04/11/18 09:08 Dose: 10 mg Hydromorphone HCl (Dilaudid) 1.5 mg IVP Q4H PRN PRN Reason: Pain, Mild (1-3) Last Admin: 04/11/18 22:30 Dose: 1.5 mg Insulin Human Regular (Humulin R Low) 0 units SC ACHS [facility] PRN Reason: Protocol Last Admin: 04/11/18 16:46 Dose: Not Given Lidocaine (Lidoderm) 1 ea TD DAILY [facility] Lisinopril (Zestril) 10 mg PO DAILY [facility] Last Admin: 04/11/18 09:09 Dose: 10 mg Metoclopramide HCl (Reglan) 5 mg PO AC [facility] Last Admin: 04/11/18 16:46 Dose: 5 mg Metoprolol Tartrate (Lopressor) 25 mg PO DAILY [facility] Last Admin: 04/11/18 09:08 Dose: 25 mg Montelukast Sodium (Singulair) 10 mg PO DAILY [facility] Last Admin: 04/11/18 09:08 Dose: 10 mg Non-Formulary Medication (Lipase/Protease/Amylase [Creon Dr 3,000 Units Capsule] ) 3,000 cap PO TID [facility] Ondansetron HCl (Zofran Inj) 4 mg IVP Q6 PRN PRN Reason: Nausea/Vomiting Last Admin: 04/10/18 06:39 Dose: 4 mg Oxycodone/Acetaminophen (Percocet 5/325 Mg Tab) 1 tab PO TID PRN PRN Reason: Breakthru pain (4-7) Stop: 04/13/18 10:01 Last Admin: 04/11/18 09:09 Dose: 1 tab Pantoprazole Sodium (Protonix Ec Tab) 40 mg PO DAILY [facility] Last Admin: 04/11/18 09:08 Dose: 40 mg Pregabalin (Lyrica) 75 mg PO DAILY [facility] Last Admin: 04/11/18 09:08 Dose: 75 mg Attending/Attestation - Attestation I have personally seen and examined this patient.: Yes I have fully participated in the care of the patient.: Yes I have reviewed all pertinent clinical information, including history, physical exam and plan: Yes Notes (Text): This is an addendum to GI consult report dictated by the [employer] the.The patient was seen and examined earlier. Medical records, lab studies, imagings were reviewed. Last 24 hours events reviewed. Agreed with the above treatment plan as outlined in [employer] 's notes the with the addition of the following Patient was still complaini abdominal pain On examination abdomen so hepatomegaly present tenderness in the epigastric area Discussed with the nursing regarding flushing PTC biliary drainage tube LFTs improving Continue MiraLAX Advanced metastatic Pancreatic cancer chronic hep C, gastroparesis, narcotic dependence, chronic back pain overall prognosis is guarded 04/11/18 23:31
[2018-04-11] MEDS ORDERED: HYDROmorphone 1 mg/ml ISec IVP PRN ×2 (12:37→21:41)
[2018-04-11] MEDS ORDERED: HYDROmorphone 0.5 mg/0.5 ml ISec IVP STA (20:08)
[2018-04-11] MEDS: HYDROmorphone 2 mg/ml ISec IVP PRN (22:30)
[2018-04-12] MEDS: Albuterol-Ipratrop 3 mg / 0.5 (3 ml) UD IH SCH ×4 (01:44→21:41)
[2018-04-12] MEDS: Insulin Reg-LOW-Coverage SC SCH ×5 (02:33→22:00)
--- NOTE | 2018-04-12 03:02 | PN ---
DATE: 04/11/2018 SUBJECTIVE: The patient is 67-year-old female. Patient was seen and examined at the bedside, looking comfortable. No nausea, vomiting, or diarrhea. No hematuria or hematochezia. Still having abdominal pain and back pain and has biliary drain, only 30 mL overnight. The patient denies any chest pain. No shortness of breath. No fever. No chills. No numbness. No dysuria. PHYSICAL EXAMINATION: VITAL SIGNS: Temperature 98.4, pulse 90, respiratory rate 20, blood pressure 158/92, pulse oximetry 100% . HEENT: Head, normocephalic and atraumatic. Eyes, PERRLA. Extraocular muscles intact. Conjunctivae clear. Nose: Patent. Mucous membranes moist. NECK: Supple. No carotid bruit, JVD, or thyromegaly. CHEST: Bilaterally symmetrical. HEART: S1 and S2 positive. LUNGS: Clear to auscultation. ABDOMEN: Soft. Bowel sounds present. No organomegaly. EXTREMITIES: No edema. No cyanosis. NEUROLOGIC: Awake and alert. Moving all 4 extremities. No focal deficits. MEDICATIONS: Tylenol, DuoNeb, Glucotrol, Dilaudid, insulin, Zestril, Reglan, Lopressor, Singulair, [id number]-[id number], Zofran, Percocet, Protonix. LABORATORY DATA: White blood cells 9.3, hemoglobin 10.4, hematocrit 32.5, platelets 318. Sodium 145, potassium 3.3, BUN 5, creatinine 0.6, glucose 72. ASSESSMENT AND PLAN: Ms. Hortensia Love is a 67-year-old female with anemia, hypokalemia. The patient has a history of chronic hepatitis C, pancreatic cancer with metastasis, chronic obstructive pulmonary disease, diabetes mellitus, gastroesophageal reflux disease, gastroparesis, has internal and external stent and noncompliance, came with abdominal pain. It can be multifactorial, may be metastatic carcinoma, may be gastroparesis. Has obstructive jaundice. PLAN: Continue monitoring biliary drain. Also recommended to flush the drain if output is low. Flushing instructions as per IR. I spoke to the patient's nurse and told him to call Dr. Loi Zamudio. Pain control. Continue low-fat, low-residual soft diet. Continue MiraLax and Reglan. Liver function tests are stable. Appreciated Dr. Merchant's input. Gastrointestinal and deep venous thrombosis prophylaxis. Repeat labs. We will follow up. Georgina Ferrara MD
[2018-04-12] MEDS: HYDROmorphone 2 mg/ml ISec IVP PRN ×5 (04:45→23:18)
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
[2018-04-12] MEDS: GlipiZIDE 10 mg SR Tab PO SCH (09:25)
[2018-04-12] MEDS: Pantoprazole 40 mg EC Tab PO SCH (09:25)
[2018-04-12] MEDS: LIPASE PO SCH ×3 (09:26→16:37)
[2018-04-12] MEDS: Lidocaine 5% Patch TD SCH (09:26)
[2018-04-12] MEDS: PROTEASE PO SCH ×3 (09:26→16:37)
[2018-04-12] MEDS: AMYLASE PO SCH ×3 (09:26→16:37)
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
[2018-04-12] MEDS ORDERED: Morphine 15 mg SR Tab PO SCH (14:00)
--- NOTE | 2018-04-12 14:51 | CP.PCM.PN ---
<Yeimi Savage - Last Filed: 04/12/18 14:47> Subjective - Date & Time of Evaluation Date of Evaluation: 04/12/18 Time of Evaluation: 07:00 - Subjective Subjective: GI Progress Note for Renetta Petersen PGY2 Patient seen and examined at bedside. As per nursing staff, there were no acute overnight events. Patient reports having the RUQ pain which is constant. She denies nausea/vomiting/diarrhea, fever/chills, dysuria/hematuria, chest pain or shortness of breath. Biliary drain had minimal output this am. Patient is un- sure how much mL is normally drained from the bag. She said it is about 1/4 of the bag daily. Objective - Vital Signs/Intake and Output Vital Signs (last 24 hours): Temp Pulse Resp BP Pulse Ox 98.3 F 81 20 114/61 96 04/12/18 06:00 04/12/18 09:25 04/12/18 06:00 04/12/18 09:25 04/12/18 06:00 Intake and Output: 04/12/18 04/12/18 06:59 18:59 Intake Total 840 480 Balance 840 480 - Medications Medications: Current Medications Acetaminophen (Tylenol 325mg Tab) 650 mg PO Q4H PRN PRN Reason: pain fever Albuterol/Ipratropium (Duoneb 3 Mg/0.5 Mg (3 Ml) Ud) 3 ml IH [id number] [facility] Last Admin: 04/12/18 13:32 Dose: Not Given Glipizide (Glucotrol Xl) 10 mg PO DAILY [facility] Last Admin: 04/12/18 09:25 Dose: 10 mg Hydromorphone HCl (Dilaudid) 2 mg IVP Q4H PRN PRN Reason: Pain, Mild (1-3) Last Admin: 04/12/18 12:09 Dose: 2 mg Insulin Human Regular (Humulin R Low) 0 units SC ACHS [facility] PRN Reason: Protocol Last Admin: 04/12/18 12:10 Dose: Not Given Lidocaine (Lidoderm) 1 ea TD DAILY [facility] Last Admin: 04/12/18 09:26 Dose: 1 ea Lisinopril (Zestril) 10 mg PO DAILY [facility] Last Admin: 04/12/18 09:25 Dose: 10 mg Metoclopramide HCl (Reglan) 5 mg PO AC [facility] Last Admin: 04/12/18 12:08 Dose: 5 mg Metoprolol Tartrate (Lopressor) 25 mg PO DAILY [facility] Last Admin: 04/12/18 09:25 Dose: 25 mg Montelukast Sodium (Singulair) 10 mg PO DAILY [facility] Last Admin: 04/12/18 09:25 Dose: 10 mg Morphine Sulfate (Morphine Extended Release Tab) 15 mg PO Q12 [facility] Lipase/Protease/Amylase [Creon Dr 3, 000 Units Capsule] 3,000 cap PO TID [facility] Last Admin: 04/12/18 12:10 Dose: Not Given Ondansetron HCl (Zofran Inj) 4 mg IVP Q6 PRN PRN Reason: Nausea/Vomiting Last Admin: 04/10/18 06:39 Dose: 4 mg Oxycodone/Acetaminophen (Percocet 5/325 Mg Tab) 1 tab PO TID PRN PRN Reason: Breakthru pain (4-7) Stop: 04/13/18 10:01 Last Admin: 04/11/18 09:09 Dose: 1 tab Pantoprazole Sodium (Protonix Ec Tab) 40 mg PO DAILY [facility] Last Admin: 04/12/18 09:25 Dose: 40 mg Pregabalin (Lyrica) 75 mg PO DAILY [facility] Last Admin: 04/12/18 09:25 Dose: 75 mg - Constitutional Appears: No Acute Distress - Head Exam Head Exam: ATRAUMATIC, NORMAL INSPECTION, NORMOCEPHALIC - Eye Exam Eye Exam: Normal appearance - ENT Exam ENT Exam: Mucous Membranes Moist - Respiratory Exam Respiratory Exam: Clear to Ausculation Bilateral, NORMAL BREATHING PATTERN. absent: Rales, Rhonchi, Wheezes - Cardiovascular Exam Cardiovascular Exam: REGULAR RHYTHM, +S1, +S2. absent: Gallop, Rubs, Murmur - GI/Abdominal Exam GI & Abdominal Exam: Soft, Tenderness (RUQ), Normal Bowel Sounds, Organomegaly ( hepatomegaly ). absent: Rigid, Rebound - Extremities Exam Extremities Exam: absent: Calf Tenderness, Pedal Edema - Neurological Exam Neurological Exam: Alert, Awake, CN II-XII Intact, Oriented x3 - Skin Skin Exam: Dry, Warm Assessment and Plan - Assessment and Plan (Free Text) Assessment: This is a 67yo female with past medical history of chronic hep C, pancreatic ca with metastasis, COPD, DM, GERD, gastroparesis, obstructive jaundice s/p internal-external stent and non-compliance who was admitted for 1. Abdominal pain (multifactorial- metastatic ca, pain medication tolerance, gastroparesis) 2. Obstructive jaundice (improving) 3. Pancreatic Ca with metastasis 4. Narcotic dependence 5. Non-compliance Plan: Recommend patient to be evaluated by IR for poor biliary drain output. Continue low fat/soft diet. Pain management was consulted and recommendations appreciated. Continue PPI and Zofran. Will wean off of Reglan as tolerated. Continue to monitor LFTs. Oncology is on consult. Prognosis is guarded. Case seen, discussed and reviewed with Dr. Merchant. Renetta Savage PGY2 <Thang Merchant V - Last Filed: 04/12/18 23:47> Objective - Vital Signs/Intake and Output Vital Signs (last 24 hours): Temp Pulse Resp BP Pulse Ox 98.3 F 99 H 20 147/97 H 99 04/12/18 23:17 04/12/18 23:17 04/12/18 23:17 04/12/18 23:17 04/12/18 23:17 Intake and Output: 04/12/18 04/13/18 18:59 06:59 Intake Total 480 380 Balance 480 380 - Medications Medications: Current Medications Acetaminophen (Tylenol 325mg Tab) 650 mg PO Q4H PRN PRN Reason: pain fever Albuterol/Ipratropium (Duoneb 3 Mg/0.5 Mg (3 Ml) Ud) 3 ml IH [id number] [facility] Last Admin: 04/12/18 21:41 Dose: 3 ml Dronabinol (Marinol) 2.5 mg PO AC [facility] Last Admin: 04/12/18 16:36 Dose: 2.5 mg Glipizide (Glucotrol Xl) 10 mg PO DAILY [facility] Last Admin: 04/12/18 09:25 Dose: 10 mg Heparin Sodium (Porcine) (Heparin) 5,000 units SC Q12 [facility] PRN Reason: Protocol Last Admin: 04/12/18 21:33 Dose: 5,000 units Hydromorphone HCl (Dilaudid) 2 mg IVP Q4H PRN PRN Reason: Pain, Mild (1-3) Last Admin: 04/12/18 23:18 Dose: 2 mg Insulin Human Regular (Humulin R Low) 0 units SC ACHS [facility] PRN Reason: Protocol Last Admin: 04/12/18 16:37 Dose: Not Given Lidocaine (Lidoderm) 1 ea TD DAILY [facility] Last Admin: 04/12/18 09:26 Dose: 1 ea Lisinopril (Zestril) 10 mg PO DAILY [facility] Last Admin: 04/12/18 09:25 Dose: 10 mg Metoclopramide HCl (Reglan) 5 mg PO AC [facility] Last Admin: 04/12/18 16:36 Dose: 5 mg Metoprolol Tartrate (Lopressor) 25 mg PO DAILY [facility] Last Admin: 04/12/18 09:25 Dose: 25 mg Montelukast Sodium (Singulair) 10 mg PO DAILY [facility] Last Admin: 04/12/18 09:25 Dose: 10 mg Morphine Sulfate (Morphine Extended Release Tab) 30 mg PO Q12 [facility] Last Admin: 04/12/18 21:33 Dose: 30 mg Lipase/Protease/Amylase [Creon Dr 3, 000 Units Capsule] 3,000 cap PO TID [facility] Last Admin: 04/12/18 16:37 Dose: Not Given Ondansetron HCl (Zofran Inj) 4 mg IVP Q6 PRN PRN Reason: Nausea/Vomiting Last Admin: 04/10/18 06:39 Dose: 4 mg Oxycodone/Acetaminophen (Percocet 5/325 Mg Tab) 1 tab PO TID PRN PRN Reason: Breakthru pain (4-7) Stop: 04/13/18 10:01 Last Admin: 04/11/18 09:09 Dose: 1 tab Pantoprazole Sodium (Protonix Ec Tab) 40 mg PO DAILY [facility] Last Admin: 04/12/18 09:25 Dose: 40 mg Pregabalin (Lyrica) 75 mg PO DAILY [facility] Last Admin: 04/12/18 09:25 Dose: 75 mg Attending/Attestation - Attestation I have personally seen and examined this patient.: Yes I have fully participated in the care of the patient.: Yes I have reviewed all pertinent clinical information, including history, physical exam and plan: Yes Notes (Text): This is an addendum to GI progress report dictated by the Caul Puller.The patient was seen and examined earlier. Medical records, lab studies, imagings were reviewed. Last 24 hours events reviewed. Agreed with the above treatment plan as outlined in Caul Puller 's notes the with the addition of the following discussed with the nursing staff and IR team regarding poor biliary biliary drain output on examination abdomen soft and mild tenderness present in the epigastric area follow-up of electrolytes pain management Advanced metastatic pancreatic cancer Overall long-term prognosis poor Oncology follow-up 04/12/18 23:44
[2018-04-12] MEDS: Morphine 30 mg SR Tab PO SCH (21:33)
[2018-04-13] MEDS: Albuterol-Ipratrop 3 mg / 0.5 (3 ml) UD IH SCH ×4 (01:55→21:29)
[2018-04-13] MEDS: HYDROmorphone 2 mg/ml ISec IVP PRN ×5 (05:08→22:44)
[2018-04-13 07:15] LABS: HEMOGLOBIN 10.1 g/dL (12.0-16.0); MEAN CELL VOLUME 81.2 fl (80.0-105.0); MEAN CORPUSCULAR HEMOGLOBIN 25.7 pg (25.0-35.0); MEAN CORPUSCULAR HGB CONC 31.7 g/dl (31.0-37.0); MEAN PLATELET VOLUME 8.9 fl (7.0-11.0); RBC 3.93 10^6/uL (3.5-6.1); RED CELL DISTRIBUTION WIDTH 17.5 % (11.5-14.5); WHITE BLOOD COUNT 10.4 10^3/ul (4.5-11.0)
[2018-04-13] MEDS: Insulin Reg-LOW-Coverage SC SCH ×4 (07:32→22:13)
[2018-04-13 07:57] LABS: ALB/GLOB RATIO 0.7 (1.1-1.8); ALT/SGPT 23 U/L (7-56); AST/SGOT 71 U/L (14-36); BLOOD UREA NITROGEN 12 mg/dL (7-21); CALCIUM 8.8 mg/dL (8.4-10.5); GFR AFRICAN-AMERICAN > 60; GFR NON-AFRICAN AMERICAN > 60
[2018-04-13] MEDS: Oxycodone/Acetaminophen 5/325 mg Tab PO PRN (08:10)
[2018-04-13] MEDS ORDERED: Potassium Chloride 20 mEq ER Tab PO ONE (08:25)
--- NOTE | 2018-04-13 08:30 | PN ---
DATE: 04/12/2018 SUBJECTIVE: Patient is a 67-year-old female. Patient is seen and examined at the bedside, looking comfortable. No nausea, vomiting, or diarrhea. No hematuria or hematochezia at this moment, but last night nurse called me that patient is crying with pain, then I gave have stat dose of Dilaudid and called consult with pain management. Length of time discussion done with pain management also. Patient denies dysuria, hematuria, chest pain, or shortness of breath , had minimal output this a.m. Patient is unsure how much milliliter is normally drained from the bag. She said that it is about one-fourth of the bag daily. PHYSICAL EXAMINATION: VITAL SIGNS: Temperature 98.3, pulse 81, respiratory rate 20, blood pressure 114/61, and pulse oximetry is 96. HEENT: Head: Normocephalic, atraumatic. Eyes: PERRLA. Extraocular muscles intact. Conjunctivae clear. Nose: Patent. Mucous membrane moist. NECK: Supple. No carotid bruit. No JVD or thyromegaly. CHEST: Bilaterally symmetrical. HEART: S1 and S2 positive. LUNGS: Clear to auscultation. ABDOMEN: Soft. Bowel sounds positive. No organomegaly. EXTREMITIES: No edema. No cyanosis. NEUROLOGICAL: Patient is awake and alert. Moving all 4 extremities. No focal deficits. MEDICATIONS: Tylenol, DuoNeb, Glucotrol, Dilaudid, insulin, Lidoderm, Zestril, Reglan, Lopressor, Singulair, morphine, Zofran, Percocet, Protonix, Lyrica. Medications are reviewed by me. ASSESSMENT AND PLAN: Ms. Hortensia Love is a 67-year-old female with past medical history of chronic hepatitis C, never got treatment; pancreatic cancer with metastasis; chronic obstructive pulmonary disease; asthma; diabetes mellitus; history of ethanol abuse; history of heavy smoking; gastroesophageal reflux disease; gastroparesis; dyspepsia. Obstructive jaundice has been internal/external stent and noncompliance. Now, patient has abdominal pain, looks like multifactorial, metastatic cancer, pain medications tolerated well. I called pain management; I have discussion done with them also. Obstructive jaundice is improving. Narcotic dependency noncompliance. We will call consult with Dr. Loi Zamudio for biliary drainage output fixation. Patient is getting low-fat soft diet. Continue proton pump inhibitor and Zofran. We will wean off Reglan as tolerated as per GI. Continue monitoring liver function tests; Oncology on the case, prognosis is guarded. Appreciated GI input. One time patient was having overdose of narcotics, became very loopy; then sometime we are not giving high doses, but sometimes we have to give high dose because of patient's pain, and that is why to justify, we called consult with pain management. Now, pain management recommended MS Contin 30 mg every 12 hours. Discontinue Dilaudid IV and change to Dilaudid 4 mg p.o. every 6 hours p.r.n. Continue on Lyrica. We will put consult with Dr. Loi Zamudio also. We will follow up. Georgina Ferrara MD [place]
--- NOTE | 2018-04-13 08:31 | CP.PCM.PN ---
<Yeimi Savage - Last Filed: 04/13/18 13:18> Subjective - Date & Time of Evaluation Date of Evaluation: 04/13/18 Time of Evaluation: 09:00 - Subjective Subjective: GI Progress Note for Renetta Petersen PGY2 Patient seen and examined at bedside. There were no acute overnight events as per nursing staff. Patient is in a lot of pain on examination and looks very uncomfortable. She states she is unable to eat due to the pain. Her pain medications were adjusted yesterday by pain management. She denies chest pain, shortness of breath, nausea/vomiting/diarrhea, fever or chills. Objective - Vital Signs/Intake and Output Vital Signs (last 24 hours): Temp Pulse Resp BP Pulse Ox 98.3 F 99 H 20 147/97 H 99 04/12/18 23:17 04/12/18 23:17 04/12/18 23:17 04/12/18 23:17 04/12/18 23:17 Intake and Output: 04/13/18 04/13/18 06:59 18:59 Intake Total 740 Balance 740 - Medications Medications: Current Medications Acetaminophen (Tylenol 325mg Tab) 650 mg PO Q4H PRN PRN Reason: pain fever Albuterol/Ipratropium (Duoneb 3 Mg/0.5 Mg (3 Ml) Ud) 3 ml IH [id number] [facility] Last Admin: 04/13/18 07:30 Dose: Not Given Dronabinol (Marinol) 2.5 mg PO AC [facility] Last Admin: 04/12/18 16:36 Dose: 2.5 mg Glipizide (Glucotrol Xl) 10 mg PO DAILY [facility] Last Admin: 04/12/18 09:25 Dose: 10 mg Heparin Sodium (Porcine) (Heparin) 5,000 units SC Q12 [facility] PRN Reason: Protocol Last Admin: 04/12/18 21:33 Dose: 5,000 units Hydromorphone HCl (Dilaudid) 2 mg IVP Q4H PRN PRN Reason: Pain, Mild (1-3) Last Admin: 04/13/18 05:08 Dose: 2 mg Insulin Human Regular (Humulin R Low) 0 units SC ACHS [facility] PRN Reason: Protocol Last Admin: 06/05/18 22:00 Dose: Not Given Lidocaine (Lidoderm) 1 ea TD DAILY [facility] Last Admin: 04/12/18 09:26 Dose: 1 ea Lisinopril (Zestril) 10 mg PO DAILY [facility] Last Admin: 04/12/18 09:25 Dose: 10 mg Metoclopramide HCl (Reglan) 5 mg PO AC [facility] Last Admin: 04/12/18 16:36 Dose: 5 mg Metoprolol Tartrate (Lopressor) 25 mg PO DAILY [facility] Last Admin: 04/12/18 09:25 Dose: 25 mg Montelukast Sodium (Singulair) 10 mg PO DAILY [facility] Last Admin: 04/12/18 09:25 Dose: 10 mg Morphine Sulfate (Morphine Extended Release Tab) 30 mg PO Q12 [facility] Last Admin: 04/12/18 21:33 Dose: 30 mg Lipase/Protease/Amylase [Creon Dr 3, 000 Units Capsule] 3,000 cap PO TID [facility] Last Admin: 04/12/18 16:37 Dose: Not Given Ondansetron HCl (Zofran Inj) 4 mg IVP Q6 PRN PRN Reason: Nausea/Vomiting Last Admin: 04/10/18 06:39 Dose: 4 mg Oxycodone/Acetaminophen (Percocet 5/325 Mg Tab) 1 tab PO TID PRN PRN Reason: Breakthru pain (4-7) Stop: 04/13/18 10:01 Last Admin: 04/13/18 08:10 Dose: 1 tab Pantoprazole Sodium (Protonix Ec Tab) 40 mg PO DAILY [facility] Last Admin: 04/12/18 09:25 Dose: 40 mg Pregabalin (Lyrica) 75 mg PO DAILY [facility] Last Admin: 04/12/18 09:25 Dose: 75 mg - Labs Labs: 04/13/18 07:00 04/13/18 07:00 - Constitutional Appears: Other (in pain ) - Head Exam Head Exam: ATRAUMATIC, NORMAL INSPECTION, NORMOCEPHALIC - Eye Exam Eye Exam: Normal appearance Pupil Exam: NORMAL ACCOMODATION - ENT Exam ENT Exam: Mucous Membranes Moist - Respiratory Exam Respiratory Exam: Clear to Ausculation Bilateral, NORMAL BREATHING PATTERN. absent: Rhonchi, Wheezes, Respiratory Distress - Cardiovascular Exam Cardiovascular Exam: REGULAR RHYTHM, +S1, +S2. absent: Gallop, Rubs, Murmur - GI/Abdominal Exam GI & Abdominal Exam: Guarding, Soft, Tenderness (RUQ/Epigastric ), Normal Bowel Sounds - Extremities Exam Extremities Exam: Normal Inspection. absent: Tenderness - Neurological Exam Neurological Exam: Alert, Awake, CN II-XII Intact - Skin Skin Exam: Dry, Normal Color Assessment and Plan - Assessment and Plan (Free Text) Assessment: This is a 67yo female with past medical history of chronic hep C, pancreatic ca with metastasis, COPD, DM, GERD, gastroparesis, obstructive jaundice s/p internal-external stent and non-compliance who was admitted for 1. Abdominal pain (multifactorial- metastatic ca, pain medication tolerance, gastroparesis) 2. Obstructive jaundice (improving) 3. Pancreatic Ca with metastasis 4. Narcotic dependence 5. Non-compliance Plan: Will follow up with pain management for optimal pain control. Biliary drain still has poor output despite the 10ml flush. Will speak to IR. Continue low fat /soft diet and PPI. Oncology is on consult. Prognosis is guarded. Case seen, discussed and reviewed with Dr. Merchant. Renetta Savage PGY2 <Thang Merchant V - Last Filed: 04/14/18 06:29> Objective - Vital Signs/Intake and Output Vital Signs (last 24 hours): Temp Pulse Resp BP Pulse Ox 98.4 F 124 H 16 124/88 96 04/13/18 21:44 04/13/18 21:44 04/13/18 21:44 04/13/18 21:44 04/13/18 21:44 Intake and Output: 04/13/18 04/14/18 18:59 06:59 Intake Total 240 600 Output Total 0 Balance 240 600 - Medications Medications: Current Medications Acetaminophen (Tylenol 325mg Tab) 650 mg PO Q4H PRN PRN Reason: pain fever Albuterol/Ipratropium (Duoneb 3 Mg/0.5 Mg (3 Ml) Ud) 3 ml IH [id number] [facility] Last Admin: 04/13/18 21:29 Dose: Not Given Dronabinol (Marinol) 2.5 mg PO AC [facility] Last Admin: 04/13/18 17:58 Dose: 2.5 mg Glipizide (Glucotrol Xl) 10 mg PO DAILY [facility] Last Admin: 04/13/18 09:30 Dose: 10 mg Heparin Sodium (Porcine) (Heparin) 5,000 units SC Q12 [facility] PRN Reason: Protocol Last Admin: 04/13/18 22:04 Dose: 5,000 units Hydromorphone HCl (Dilaudid) 2 mg IVP Q4H PRN PRN Reason: Pain, Mild (1-3) Stop: 04/15/18 09:16 Last Admin: 04/14/18 04:28 Dose: 2 mg Insulin Human Regular (Humulin R Low) 0 units SC ACHS [facility] PRN Reason: Protocol Last Admin: 04/13/18 22:13 Dose: Not Given Lidocaine (Lidoderm) 1 ea TD DAILY [facility] Last Admin: 04/13/18 09:25 Dose: 1 ea Lisinopril (Zestril) 10 mg PO DAILY [facility] Last Admin: 04/13/18 09:30 Dose: 10 mg Metoclopramide HCl (Reglan) 5 mg PO AC [facility] Last Admin: 04/13/18 17:58 Dose: 5 mg Metoprolol Tartrate (Lopressor) 25 mg PO DAILY [facility] Last Admin: 04/13/18 09:30 Dose: 25 mg Montelukast Sodium (Singulair) 10 mg PO DAILY [facility] Last Admin: 04/13/18 09:30 Dose: 10 mg Morphine Sulfate (Morphine Extended Release Tab) 30 mg PO Q12 [facility] Last Admin: 04/13/18 22:05 Dose: 30 mg Lipase/Protease/Amylase [Creon Dr 3, 000 Units Capsule] 3,000 cap PO TID [facility] Last Admin: 04/13/18 17:33 Dose: Not Given Ondansetron HCl (Zofran Inj) 4 mg IVP Q6 PRN PRN Reason: Nausea/Vomiting Last Admin: 04/10/18 06:39 Dose: 4 mg Pantoprazole Sodium (Protonix Ec Tab) 40 mg PO DAILY [facility] Last Admin: 04/13/18 09:30 Dose: 40 mg Pregabalin (Lyrica) 75 mg PO DAILY [facility] Last Admin: 04/13/18 09:30 Dose: 75 mg - Labs Labs: 04/13/18 07:00 04/13/18 07:00 Attending/Attestation - Attestation I have personally seen and examined this patient.: Yes I have fully participated in the care of the patient.: Yes I have reviewed all pertinent clinical information, including history, physical exam and plan: Yes Notes (Text): This is an addendum to GI progress report dictated by the Roller Mill Operator.The patient was seen and examined earlier. Medical records, lab studies, imagings were reviewed. Last 24 hours events reviewed. Agreed with the above treatment plan as outlined in Roller Mill Operator 's notes the with the addition of the following 04/14/18 06:29
[2018-04-13] MEDS: Lidocaine 5% Patch TD SCH (09:25)
[2018-04-13] MEDS: GlipiZIDE 10 mg SR Tab PO SCH (09:30)
[2018-04-13] MEDS: Morphine 30 mg SR Tab PO SCH ×2 (09:30→22:05)
[2018-04-13] MEDS: Pantoprazole 40 mg EC Tab PO SCH (09:30)
[2018-04-13] MEDS: PROTEASE PO SCH ×3 (13:26→17:33)
[2018-04-13] MEDS: AMYLASE PO SCH ×3 (13:26→17:33)
[2018-04-13] MEDS: LIPASE PO SCH ×3 (13:26→17:33)
[2018-04-14] MEDS: HYDROmorphone 1 mg/ml ISec IVP PRN ×2 (04:28→08:34)
[2018-04-14 07:08] LABS: ALB/GLOB RATIO 0.8 (1.1-1.8); ALBUMIN 3.4 g/dL (3.0-4.8); ALT/SGPT 25 U/L (7-56); AST/SGOT 125 U/L (14-36); BLOOD UREA NITROGEN 14 mg/dL (7-21); CALCIUM 9.3 mg/dL (8.4-10.5); GFR AFRICAN-AMERICAN > 60; GFR NON-AFRICAN AMERICAN > 60
[2018-04-14] MEDS: Albuterol-Ipratrop 3 mg / 0.5 (3 ml) UD IH SCH ×3 (07:50→21:01)
--- NOTE | 2018-04-14 08:02 | CP.PCM.PN ---
Subjective - Date & Time of Evaluation Date of Evaluation: 04/14/18 Time of Evaluation: 13:50 - Subjective Subjective: Heme-Onc Progress note for Dr. Cordova Patient seen and examined at bedside. Nursing reported no acute events overnight. Biliary drain in place but patient still has minimal output. Reported pain is 6/10 at baseline and 8/10 at its worst. Pain is controlled with current pain regimen. She reports it is in her R abdomen radiating to her right flank. Patient denies nausea/vomiting but reports she is constipated and has not had a BM in days. Denies other acute complaints of headache, dizziness, fever, chills, chest pain, palpitations, SOB, cough, bladder complaints, pain/ swelling in her legs bilaterally. Reports decreased PO intake. Objective - Vital Signs/Intake and Output Vital Signs (last 24 hours): Temp Pulse Resp BP Pulse Ox 98.4 F 124 H 16 124/88 96 04/13/18 21:44 04/13/18 21:44 04/13/18 21:44 04/13/18 21:44 04/13/18 21:44 Intake and Output: 04/14/18 04/14/18 06:59 18:59 Intake Total 600 Output Total 0 Balance 600 - Medications Medications: Current Medications Acetaminophen (Tylenol 325mg Tab) 650 mg PO Q4H PRN PRN Reason: pain fever Albuterol/Ipratropium (Duoneb 3 Mg/0.5 Mg (3 Ml) Ud) 3 ml IH [id number] [facility] Last Admin: 04/14/18 07:50 Dose: Not Given Dronabinol (Marinol) 2.5 mg PO AC [facility] Last Admin: 04/13/18 17:58 Dose: 2.5 mg Glipizide (Glucotrol Xl) 10 mg PO DAILY [facility] Last Admin: 04/13/18 09:30 Dose: 10 mg Heparin Sodium (Porcine) (Heparin) 5,000 units SC Q12 [facility] PRN Reason: Protocol Last Admin: 04/13/18 22:04 Dose: 5,000 units Hydromorphone HCl (Dilaudid) 2 mg IVP Q4H PRN PRN Reason: Pain, Mild (1-3) Stop: 04/15/18 09:16 Last Admin: 04/14/18 04:28 Dose: 2 mg Insulin Human Regular (Humulin R Low) 0 units SC ACHS [facility] PRN Reason: Protocol Last Admin: 04/13/18 22:13 Dose: Not Given Lidocaine (Lidoderm) 1 ea TD DAILY [facility] Last Admin: 04/13/18 09:25 Dose: 1 ea Lisinopril (Zestril) 10 mg PO DAILY [facility] Last Admin: 04/13/18 09:30 Dose: 10 mg Metoclopramide HCl (Reglan) 5 mg PO AC [facility] Last Admin: 04/13/18 17:58 Dose: 5 mg Metoprolol Tartrate (Lopressor) 25 mg PO DAILY [facility] Last Admin: 04/13/18 09:30 Dose: 25 mg Montelukast Sodium (Singulair) 10 mg PO DAILY [facility] Last Admin: 04/13/18 09:30 Dose: 10 mg Morphine Sulfate (Morphine Extended Release Tab) 30 mg PO Q12 [facility] Last Admin: 04/13/18 22:05 Dose: 30 mg Lipase/Protease/Amylase [Creon Dr 3, 000 Units Capsule] 3,000 cap PO TID [facility] Last Admin: 04/13/18 17:33 Dose: Not Given Ondansetron HCl (Zofran Inj) 4 mg IVP Q6 PRN PRN Reason: Nausea/Vomiting Last Admin: 04/10/18 06:39 Dose: 4 mg Pantoprazole Sodium (Protonix Ec Tab) 40 mg PO DAILY [facility] Last Admin: 04/13/18 09:30 Dose: 40 mg Pregabalin (Lyrica) 75 mg PO DAILY [facility] Last Admin: 04/13/18 09:30 Dose: 75 mg - Labs Labs: 04/13/18 07:00 04/14/18 06:00 - Constitutional Appears: In Acute Distress (pain) - Head Exam Head Exam: ATRAUMATIC, NORMAL INSPECTION, NORMOCEPHALIC - Eye Exam Eye Exam: EOMI, Normal appearance. absent: Conjunctival injection, Scleral icterus Pupil Exam: PERRL - ENT Exam ENT Exam: Mucous Membranes Moist - Neck Exam Neck Exam: Full ROM - Respiratory Exam Respiratory Exam: Clear to Ausculation Bilateral, NORMAL BREATHING PATTERN. absent: Accessory Muscle Use, Rales, Rhonchi, Wheezes, Respiratory Distress - Cardiovascular Exam Cardiovascular Exam: +S1, +S2 - GI/Abdominal Exam GI & Abdominal Exam: Guarding, Soft, Tenderness, Normal Bowel Sounds. absent: Rebound - Rectal Exam Rectal Exam: Deferred - Extremities Exam Extremities Exam: Normal Capillary Refill, Normal Inspection. absent: Pedal Edema - Neurological Exam Neurological Exam: Alert, Awake, CN II-XII Intact, Oriented x3 - Psychiatric Exam Psychiatric exam: Normal Affect, Normal Mood - Skin Skin Exam: Dry, Intact, Normal Color, Warm Assessment and Plan - Assessment and Plan (Free Text) Assessment: 67yo female PMHx pancreatic ca with mets, HTN, DM2, COPD, sleep apnea, colon resection, and TIA presented to [facility] [place] [facility] with nausea, vomiting , and abdominal pain for 1 day. Pain regimen adjusted and pain management/ anesthesia consulted- appreciate reccs. Patient also started on Marinol with meals. IR on board regarding biliary drain output despite 10cc flushes. Continue PPI and Zofran. Patient on low fat/soft diet. GI on board- appreciate reccs. Continue to monitor closely. Continue management as per primary. Discussed with attending Angeles Ruiz PGY2
--- NOTE | 2018-04-14 08:09 | PN ---
DATE: 04/13/2018 SUBJECTIVE: Patient is a 67-year-old female. Patient was seen and examined on the bedside on 04/13/2018, looking comfortable. was sitting on the bedside also. No acute event overnight happened as per patient and nursing staff. Patient is complaining about pain in the abdominal area and is not able to eat too much due to abdominal pain. Pain management is on the case. No fever. No chills. No nausea or vomiting. No chest pain. PHYSICAL EXAMINATION: VITAL SIGNS: Temperature 98.3, pulse 99, respiratory rate 20, blood pressure 147/97, pulse oximetry 99. HEENT: Head: Normocephalic, atraumatic. Eyes: PERRLA. Extraocular muscles intact. Conjunctivae clear. Nose: Patent. NECK: Supple. No carotid bruit, JVD, or thyromegaly. CHEST: Bilaterally symmetrical. HEART: S1 and S2 positive. LUNGS: Clear to auscultation. ABDOMEN: Soft. Bowel sounds present. No organomegaly. EXTREMITIES: No edema. No cyanosis. NEUROLOGIC: Patient is awake and alert. Follow simple commands. MEDICATIONS: Acetaminophen, DuoNeb, Marinol, heparin, Dilaudid, insulin, Lidoderm, Zestril, Reglan, Lopressor, Singulair, morphine, lipase/protease/amylase, Zofran. LABORATORY DATA: White blood cells 10.4, hemoglobin 10.1, hematocrit 31.9, platelets 272. Sodium 140, potassium 3.4, BUN 12, creatinine 0.5, glucose 151. ASSESSMENT AND PLAN: Ms. Hortensia Love is a 67-year-old female with anemia, hypokalemia, hyperglycemia, history of chronic hepatitis C, pancreatic cancer with metastasis, chronic obstructive pulmonary disease, gastroesophageal reflux disease, dyspepsia, gastroparesis, obstructive jaundice, has internal and external stents and noncompliance. Her pain look like multifactorial, pain is improving. Pain management is on the case. Obstructive jaundice improving. Narcotics dependency, noncompliance. GI is on the case. gilda alegre has still poor output, despite flushimg . IR is on the case. We are trying to call them again. Discussion done with the patient and patient's sister Gloria. Gastrointestinal and deep vein thrombosis prophylaxis. Repeat labs. We will follow up. Georgina Ferrara MD MTDChina
[2018-04-14] MEDS: Insulin Reg-LOW-Coverage SC SCH ×4 (08:21→23:28)
[2018-04-14] MEDS: Lidocaine 5% Patch TD SCH (10:29)
[2018-04-14] MEDS: GlipiZIDE 10 mg SR Tab PO SCH (10:32)
[2018-04-14] MEDS: Morphine 30 mg SR Tab PO SCH ×2 (10:33→22:12)
[2018-04-14] MEDS: Pantoprazole 40 mg EC Tab PO SCH (10:33)
[2018-04-14] MEDS: AMYLASE PO SCH ×2 (10:34→14:12)
[2018-04-14] MEDS: LIPASE PO SCH ×2 (10:34→14:12)
[2018-04-14] MEDS: PROTEASE PO SCH ×2 (10:34→14:12)
--- NOTE | 2018-04-14 11:22 | CP.PCM.PN ---
Subjective - Date & Time of Evaluation Date of Evaluation: 04/14/18 Time of Evaluation: 08:00 - Subjective Subjective: GI Progress Note for Renetta Petersen PGY2 Patient seen and examined at bedside. There were no acute overnight events as per nursing staff. Patient continue to complain about abdominal pain, but looks more comfortable today. She reports having constipation. She denies chest pain, shortness of breath, nausea/vomiting, numbness/tingling, fever or chills. Objective - Vital Signs/Intake and Output Vital Signs (last 24 hours): Temp Pulse Resp BP Pulse Ox 98.3 F 98 H 20 101/79 98 04/14/18 06:00 04/14/18 10:33 04/14/18 06:00 04/14/18 10:33 04/14/18 06:00 Intake and Output: 04/14/18 04/14/18 06:59 18:59 Intake Total 600 Output Total 0 Balance 600 - Medications Medications: Current Medications Acetaminophen (Tylenol 325mg Tab) 650 mg PO Q4H PRN PRN Reason: pain fever Albuterol/Ipratropium (Duoneb 3 Mg/0.5 Mg (3 Ml) Ud) 3 ml IH [id number] [facility] Last Admin: 04/14/18 07:50 Dose: Not Given Dronabinol (Marinol) 2.5 mg PO AC [facility] Last Admin: 04/14/18 08:34 Dose: 2.5 mg Glipizide (Glucotrol Xl) 10 mg PO DAILY [facility] Last Admin: 04/14/18 10:32 Dose: 10 mg Heparin Sodium (Porcine) (Heparin) 5,000 units SC Q12 [facility] PRN Reason: Protocol Last Admin: 04/14/18 10:30 Dose: 5,000 units Hydromorphone HCl (Dilaudid) 2 mg IVP Q4H PRN PRN Reason: Pain, Mild (1-3) Stop: 04/15/18 09:16 Last Admin: 04/14/18 08:34 Dose: 2 mg Insulin Human Regular (Humulin R Low) 0 units SC ACHS [facility] PRN Reason: Protocol Last Admin: 04/14/18 08:21 Dose: Not Given Lidocaine (Lidoderm) 1 ea TD DAILY [facility] Last Admin: 04/14/18 10:29 Dose: 1 ea Lisinopril (Zestril) 10 mg PO DAILY [facility] Last Admin: 04/14/18 10:33 Dose: 10 mg Metoclopramide HCl (Reglan) 5 mg PO AC [facility] Last Admin: 04/14/18 08:34 Dose: 5 mg Metoprolol Tartrate (Lopressor) 25 mg PO DAILY [facility] Last Admin: 04/14/18 10:32 Dose: 25 mg Montelukast Sodium (Singulair) 10 mg PO DAILY [facility] Last Admin: 04/14/18 10:33 Dose: 10 mg Morphine Sulfate (Morphine Extended Release Tab) 30 mg PO Q12 [facility] Last Admin: 04/14/18 10:33 Dose: 30 mg Lipase/Protease/Amylase [Creon Dr 3, 000 Units Capsule] 3,000 cap PO TID [facility] Last Admin: 04/14/18 10:34 Dose: Not Given Ondansetron HCl (Zofran Inj) 4 mg IVP Q6 PRN PRN Reason: Nausea/Vomiting Last Admin: 04/10/18 06:39 Dose: 4 mg Pantoprazole Sodium (Protonix Ec Tab) 40 mg PO DAILY [facility] Last Admin: 04/14/18 10:33 Dose: 40 mg Pregabalin (Lyrica) 75 mg PO DAILY [facility] Last Admin: 04/14/18 10:33 Dose: 75 mg - Labs Labs: 04/13/18 07:00 04/14/18 06:00 - Constitutional Appears: No Acute Distress - Head Exam Head Exam: ATRAUMATIC, NORMAL INSPECTION, NORMOCEPHALIC - Eye Exam Eye Exam: Normal appearance, PERRL Pupil Exam: NORMAL ACCOMODATION - ENT Exam ENT Exam: Mucous Membranes Moist - Respiratory Exam Respiratory Exam: Clear to Ausculation Bilateral, NORMAL BREATHING PATTERN. absent: Rales, Rhonchi, Wheezes - Cardiovascular Exam Cardiovascular Exam: REGULAR RHYTHM, +S1, +S2. absent: Gallop, Rubs, Murmur - GI/Abdominal Exam GI & Abdominal Exam: Soft, Tenderness (RUQ), Normal Bowel Sounds Additional comments: drain in place. minimal output - Extremities Exam Extremities Exam: Normal Inspection. absent: Pedal Edema - Neurological Exam Neurological Exam: Alert, Awake, CN II-XII Intact, Oriented x3 - Skin Skin Exam: Dry, Warm Assessment and Plan - Assessment and Plan (Free Text) Assessment: This is a 67yo female with past medical history of chronic hep C, pancreatic ca with metastasis, COPD, DM, GERD, gastroparesis, obstructive jaundice s/p internal-external stent and non-compliance who was admitted for 1. Abdominal pain (multifactorial- metastatic ca, pain medication tolerance, gastroparesis) 2. Obstructive jaundice (improving) 3. Pancreatic Ca with metastasis 4. Narcotic dependence 5. Non-compliance Plan: Will give patient one dose of Relistor for opiod induced constipation. Continue pain medication. Biliary drain still has minimal output. Will continue to monitor. Continue PPI and soft, low fat diet. Oncology recommendations appreciated. Case seen, discussed and reviewed with Dr. Merchant. Renetta Savage PGY2
[2018-04-14] MEDS ORDERED: HYDROmorphone 2 mg/ml ISec IVP PRN (12:08)
[2018-04-15] MEDS: Albuterol-Ipratrop 3 mg / 0.5 (3 ml) UD IH SCH ×4 (01:23→21:45)
[2018-04-15] MEDS ORDERED: HYDROmorphone 1 mg/ml ISec IVP PRN (05:30)
[2018-04-15] MEDS: Insulin Reg-LOW-Coverage SC SCH ×4 (08:07→22:21)
[2018-04-15] MEDS: GlipiZIDE 10 mg SR Tab PO SCH (09:18)
[2018-04-15] MEDS: Lidocaine 5% Patch TD SCH (09:18)
[2018-04-15] MEDS: Pantoprazole 40 mg EC Tab PO SCH (09:18)
[2018-04-15] MEDS: Morphine 30 mg SR Tab PO SCH ×2 (09:19→22:19)
[2018-04-15] MEDS: AMYLASE PO SCH ×3 (10:00→17:26)
[2018-04-15] MEDS: PROTEASE PO SCH ×3 (10:00→17:26)
[2018-04-15] MEDS: LIPASE PO SCH ×3 (10:00→17:26)
--- NOTE | 2018-04-15 10:36 | CP.PCM.PN ---
Subjective - Date & Time of Evaluation Date of Evaluation: 04/15/18 Time of Evaluation: 09:30 - Subjective Subjective: Heme-Onc Progress note for Dr. Cordova Patient seen and examined at bedside. Nursing reports no acute events overnight. Patient reported pain is well controlled on current regimen. She reported she has not had a BM. As per nursing patient was visited by family who was encouraging her to eat. She denied acute complaints of fever, chills, headache, dizziness, chest pain, palpitations, SOB, cough, nausea, vomiting, bladder complaints, pain/swelling in her legs bilaterally. Objective - Vital Signs/Intake and Output Vital Signs (last 24 hours): Temp Pulse Resp BP Pulse Ox 97.9 F 88 22 115/86 98 04/15/18 06:00 04/15/18 09:19 04/15/18 06:00 04/15/18 09:19 04/15/18 06:00 Intake and Output: 04/15/18 04/15/18 06:59 18:59 Intake Total 480 Output Total 50 Balance 430 - Medications Medications: Current Medications Acetaminophen (Tylenol 325mg Tab) 650 mg PO Q4H PRN PRN Reason: pain fever Albuterol/Ipratropium (Duoneb 3 Mg/0.5 Mg (3 Ml) Ud) 3 ml IH [id number] [facility] Last Admin: 04/15/18 07:38 Dose: Not Given Dronabinol (Marinol) 2.5 mg PO AC [facility] Last Admin: 04/15/18 08:18 Dose: 2.5 mg Glipizide (Glucotrol Xl) 10 mg PO DAILY [facility] Last Admin: 04/15/18 09:18 Dose: 10 mg Heparin Sodium (Porcine) (Heparin) 5,000 units SC Q12 [facility] PRN Reason: Protocol Last Admin: 04/15/18 09:19 Dose: 5,000 units Insulin Human Regular (Humulin R Low) 0 units SC ACHS [facility] PRN Reason: Protocol Last Admin: 04/15/18 08:07 Dose: Not Given Lidocaine (Lidoderm) 1 ea TD DAILY [facility] Last Admin: 04/15/18 09:18 Dose: 1 ea Lisinopril (Zestril) 10 mg PO DAILY [facility] Last Admin: 04/15/18 09:18 Dose: 10 mg Metoclopramide HCl (Reglan) 5 mg PO AC [facility] Last Admin: 04/15/18 08:18 Dose: 5 mg Metoprolol Tartrate (Lopressor) 25 mg PO DAILY [facility] Last Admin: 04/15/18 09:19 Dose: 25 mg Montelukast Sodium (Singulair) 10 mg PO DAILY [facility] Last Admin: 04/15/18 09:19 Dose: 10 mg Morphine Sulfate (Morphine Extended Release Tab) 30 mg PO Q12 [facility] Last Admin: 04/15/18 09:19 Dose: 30 mg Lipase/Protease/Amylase [Creon Dr 3, 000 Units Capsule] 3,000 cap PO TID [facility] Last Admin: 04/14/18 14:12 Dose: Not Given Ondansetron HCl (Zofran Inj) 4 mg IVP Q6 PRN PRN Reason: Nausea/Vomiting Last Admin: 04/10/18 06:39 Dose: 4 mg Pantoprazole Sodium (Protonix Ec Tab) 40 mg PO DAILY [facility] Last Admin: 04/15/18 09:18 Dose: 40 mg Pregabalin (Lyrica) 75 mg PO DAILY [facility] Last Admin: 04/15/18 09:18 Dose: 75 mg - Labs Labs: 04/13/18 07:00 04/14/18 06:00 - Constitutional Appears: Non-toxic, No Acute Distress - Head Exam Head Exam: ATRAUMATIC, NORMAL INSPECTION, NORMOCEPHALIC - Eye Exam Eye Exam: EOMI, Normal appearance, PERRL. absent: Conjunctival injection, Scleral icterus - ENT Exam ENT Exam: Mucous Membranes Moist - Neck Exam Neck Exam: Full ROM - Respiratory Exam Respiratory Exam: Clear to Ausculation Bilateral, NORMAL BREATHING PATTERN. absent: Accessory Muscle Use, Rales, Rhonchi, Wheezes, Respiratory Distress - Cardiovascular Exam Cardiovascular Exam: +S1, +S2 - GI/Abdominal Exam GI & Abdominal Exam: Soft, Tenderness - Rectal Exam Rectal Exam: Deferred - Extremities Exam Extremities Exam: Normal Capillary Refill, Normal Inspection. absent: Calf Tenderness, Pedal Edema - Neurological Exam Neurological Exam: Alert, Awake, CN II-XII Intact, Oriented x3 - Psychiatric Exam Psychiatric exam: Normal Affect, Normal Mood - Skin Skin Exam: Dry, Intact, Normal Color, Warm Assessment and Plan - Assessment and Plan (Free Text) Assessment: 67yo female PMHx pancreatic ca with mets, HTN, DM2, COPD, sleep apnea, colon resection, and TIA [place] [facility] [place], vomiting , and abdominal pain. Patient's pain well controlled. Pain regimen adjusted and pain management/anesthesia consulted- appreciate reccs. Patient on Marinol with meals. IR on board regarding poor biliary drain output despite 10cc flushes. Continue PPI and Zofran. Patient on low fat/soft diet. GI on board- appreciate reccs. Continue to monitor closely. Continue management as per primary. Discussed with attending Anegles Ruiz PGY2
--- NOTE | 2018-04-15 16:03 | CP.PCM.PN ---
Subjective - Date & Time of Evaluation Date of Evaluation: 04/15/18 Time of Evaluation: 11:20 - Subjective Subjective: Seen and examined at the bedside earlier today, chart review. Patient had a bit sitting in the chair. Reports no nausea, vomiting, abdominal pain under control. No recent bowel movement. Patient reports no appetite. Encouraged to drink Ensure. Objective - Vital Signs/Intake and Output Vital Signs (last 24 hours): Temp Pulse Resp BP Pulse Ox 97.9 F 88 22 115/86 98 04/15/18 06:00 04/15/18 09:19 04/15/18 06:00 04/15/18 09:19 04/15/18 06:00 Intake and Output: 04/15/18 04/15/18 06:59 18:59 Intake Total 480 Output Total 50 Balance 430 - Medications Medications: Current Medications Acetaminophen (Tylenol 325mg Tab) 650 mg PO Q4H PRN PRN Reason: pain fever Albuterol/Ipratropium (Duoneb 3 Mg/0.5 Mg (3 Ml) Ud) 3 ml IH [id number] [facility] Last Admin: 04/15/18 13:39 Dose: Not Given Dronabinol (Marinol) 2.5 mg PO AC [facility] Last Admin: 04/15/18 12:06 Dose: 2.5 mg Glipizide (Glucotrol Xl) 10 mg PO DAILY [facility] Last Admin: 04/15/18 09:18 Dose: 10 mg Heparin Sodium (Porcine) (Heparin) 5,000 units SC Q12 [facility] PRN Reason: Protocol Last Admin: 04/15/18 09:19 Dose: 5,000 units Insulin Human Regular (Humulin R Low) 0 units SC ACHS [facility] PRN Reason: Protocol Last Admin: 04/15/18 11:54 Dose: Not Given Lidocaine (Lidoderm) 1 ea TD DAILY [facility] Last Admin: 04/15/18 09:18 Dose: 1 ea Lisinopril (Zestril) 10 mg PO DAILY [facility] Last Admin: 04/15/18 09:18 Dose: 10 mg Metoclopramide HCl (Reglan) 5 mg PO AC [facility] Last Admin: 04/15/18 12:06 Dose: 5 mg Metoprolol Tartrate (Lopressor) 25 mg PO DAILY [facility] Last Admin: 04/15/18 09:19 Dose: 25 mg Montelukast Sodium (Singulair) 10 mg PO DAILY [facility] Last Admin: 04/15/18 09:19 Dose: 10 mg Morphine Sulfate (Morphine Extended Release Tab) 30 mg PO Q12 [facility] Last Admin: 04/15/18 09:19 Dose: 30 mg Lipase/Protease/Amylase [Creon Dr 3, 000 Units Capsule] 3,000 cap PO TID [facility] Last Admin: 04/15/18 10:00 Dose: Not Given Ondansetron HCl (Zofran Inj) 4 mg IVP Q6 PRN PRN Reason: Nausea/Vomiting Last Admin: 04/10/18 06:39 Dose: 4 mg Pantoprazole Sodium (Protonix Ec Tab) 40 mg PO DAILY [facility] Last Admin: 04/15/18 09:18 Dose: 40 mg Pregabalin (Lyrica) 75 mg PO DAILY [facility] Last Admin: 04/15/18 09:18 Dose: 75 mg - Labs Labs: 04/13/18 07:00 04/14/18 06:00 - Constitutional Appears: No Acute Distress - Eye Exam Eye Exam: Scleral icterus - ENT Exam ENT Exam: Mucous Membranes Moist - Respiratory Exam Respiratory Exam: NORMAL BREATHING PATTERN. absent: Respiratory Distress - Cardiovascular Exam Cardiovascular Exam: +S1, +S2 - GI/Abdominal Exam GI & Abdominal Exam: Soft, Normal Bowel Sounds. absent: Guarding, Tenderness, Rebound Additional comments: ptc drain in place, drain about 50 ml, - Extremities Exam Extremities Exam: absent: Calf Tenderness, Pedal Edema - Neurological Exam Neurological Exam: Alert, Awake, Oriented x3 - Skin Skin Exam: Dry, Warm Assessment and Plan - Assessment and Plan (Free Text) Assessment: Assessment: Abdominal pain (multifactorial- metastatic ca, pain medication tolerance, gastroparesis) Obstructive jaundice (improving) Pancreatic Ca with metastasis Narcotic dependence Non-compliance H/O Chronic Hepatitis C GERD Gastroparesis COPD DM Plan: Pain control monitor billary drain output, despite flushes of 10 ml poor output Continue low fat/soft diet w/ Ensure supplements on Heparin SQ continue PPI Oncology FU Seen and discussed with Dr. Merchant.
[2018-04-15] MEDS ORDERED: HYDROmorphone 1 mg/ml ISec IVP STA (23:49)
[2018-04-16] MEDS: Albuterol-Ipratrop 3 mg / 0.5 (3 ml) UD IH SCH ×4 (01:31→20:27)
[2018-04-16] MEDS: HYDROmorphone 0.5 mg/0.5 ml ISec IVP STA ×2 (06:45→20:36)
--- NOTE | 2018-04-16 07:37 | PN ---
DATE: 04/15/2018 SUBJECTIVE: The patient is 67-year-old female. Patient was seen and examined on the bedside. Pain is getting under control. Appetite is not great. Does not look like in acute distress. No dizziness. No fever. No chills. No chest pain or palpitation. No shortness of breath. No coughing, no bladder symptoms. No swelling of the leg, but decreased p.o. intake. Currently, the patient says she do not have taste in the mouth; still has biliary drain in place, but has minimal output. Interventional radiologist is on the case. GI is on the case. PHYSICAL EXAMINATION: VITAL SIGNS: Temperature 98.4, pulse 125, respiratory rate 16, blood pressure 124/88, pulse 96. HEENT: Head: Normocephalic, atraumatic. Eyes: PERRLA. Extraocular muscles intact. Conjunctivae clear. Nose: Patent. NECK: Supple. No carotid bruit, JVD, or thyromegaly. CHEST: Bilaterally symmetrical. HEART: S1 and S2 positive. LUNGS: Clear to auscultation. ABDOMEN: Soft. Bowel sounds present. No organomegaly. EXTREMITIES: No edema. No cyanosis. NEUROLOGIC: Patient is awake and alert. Moving all four extremities. No focal deficits. MEDICATIONS: Tylenol, Duoneb, Glucotrol, heparin, Dilaudid, insulin, Lidoderm, Zestril, Reglan, Lopressor, Singulair, morphine, Zofran. LABORATORY DATA: White blood cells 10.4, hemoglobin 10.1, hematocrit 31.9, platelets 272. Sodium 143, potassium 3.9, BUN 14, creatinine 0.8, glucose 58. ASSESSMENT AND PLAN: Ms. Hortensia Love is a 67-year-old lady with anemia, history of diabetes mellitus, now she has hypoglycemia, history of pancreatic cancer with metastasis, hypertension, chronic obstructive pulmonary disease, sleep apnea syndrome, history of colon resection, transient ischemic attack. Has sometimes nauseousness and history of intractable abdominal pain. Patient is getting pain medication. To adjust that, I called consult with Dr. Escobar. The patient also started on small 6 meals. Interventional Radiology is on the board regarding biliary drainage output despite 10 mL flush. Continue proton pump inhibitors. The patient on low fat, soft diet. Continue to monitor the patient very closely. Discussion with the nursing staff mainly. We will call consult with Sonia Galarza for comfort care. Meanwhile, continue present treatment and waiting for the oncologist to hear about the plan about chemotherapy. Appreciated Amelia Wright's notes. We will follow up. Georgina Ferrara MD MTDD
[2018-04-16] MEDS: Insulin Reg-LOW-Coverage SC SCH ×3 (08:25→17:01)
[2018-04-16] MEDS: GlipiZIDE 10 mg SR Tab PO SCH (10:40)
[2018-04-16] MEDS: Lidocaine 5% Patch TD SCH (10:40)
[2018-04-16] MEDS: Pantoprazole 40 mg EC Tab PO SCH (10:40)
[2018-04-16] MEDS: PROTEASE PO SCH ×2 (10:41→17:01)
[2018-04-16] MEDS: LIPASE PO SCH ×2 (10:41→17:01)
[2018-04-16] MEDS: Morphine 30 mg SR Tab PO SCH ×2 (10:41→21:44)
[2018-04-16] MEDS: AMYLASE PO SCH ×2 (10:41→17:01)
[2018-04-16] MEDS ORDERED: HYDROmorphone 2 mg/ml ISec IVP PRN (15:03)
--- NOTE | 2018-04-16 18:28 | PN ---
DATE: 04/16/2018 This is [facility] on the medical floor. For Dr. Parker. SUBJECTIVE: The patient is a 67-year-old female status post drainage catheter placed by Dr. Loi Zamudio recently with blockage by tumor progression with the patient is known to suffer from metastatic stage IV progressive pancreatic adenocarcinoma with documented metastatic disease in the lungs in the form of bilateral lung metastasis, also adenopathy in the retroperitoneal lymph nodes, intraabdominal adenopathy, and pancreatic adenopathy with ascites. The patient is now being seen after being readmitted by the Emergency Room for severe nausea, vomiting, and abdominal pain. The patient is reporting that her pain was poorly controlled with oral narcotic analgesics. With this, the patient is now resting comfortably. However, she is known to be noncompliant in recommendations for followup of treatment of her cancer, despite recommendations to do so. She was previously followed by Dr. Navarrete in December with the patient had been given gemcitabine and Abraxane at that point. However, she reports that due to personal issues and now recently being hospitalized, she has not been able to continue regimens either with Dr. Navarrete or with Dr. Parker. There is also a history of substance abuse with the patient known to have used alcohol in excess, cocaine, and benzodiazepines. PHYSICAL EXAMINATION: VITAL SIGNS: Temperature 97.7, pulse 82, respirations 18, blood pressure 109/51, pulse ox 98%. HEENT: Unremarkable. Tongue is dry and coated. NECK: Supple. HEART: Regular rate. LUNGS: Decreased breath sounds at the bases. ABDOMEN: Minimally distended. PTC drain noted. EXTREMITIES: Faint +1 edema. NEUROLOGIC: Awake, alert, but lethargic. SKIN: Warm and dry with no open lesions. LABORATORY DATA: The patient's labs were done three days prior, they will be repeated in the morning. Her most recent labs: White blood cell count of 10.4, hemoglobin 10.1, hematocrit 31.9, platelet count 272,000 with a chem metabolic panel dated from 04/14/2018 showing a total bilirubin of 1.4, AST of 125 with a hyperglycemic lab of blood sugar 35 done earlier today with a repeat of 235. ASSESSMENT: For this patient is that of metastatic stage IV progressive pancreatic adenocarcinoma with documented metastasis to the lungs, retroperitoneal nodes, intraabdominal adenopathy, ascites, status post treatment with gemcitabine and 5-FU as per Dr. Navarrete, cachexia of malignancy, intractable pain of cancer, fibromyalgia, diabetes mellitus, hepatitis C history, history of transient ischemic attack?, depression, substance abuse, gastroesophageal reflux disease, chronic obstructive pulmonary disease, status post internal and external stent placements on 03/10/2018, noncompliance, history of colon resection, sleep apnea. PLAN: The plan for this patient is to check her labs again in the morning. We will continue present medical regimen as per Dr. Ferrara, her primary doctor, with Marinol began for her appetite, morphine extended release for her pain. The prognosis for this patient is guarded. This is a complex patient with a comprehensive medically necessary and appropriate visit carried out in excess of 35 minutes with the patient's records reviewed, the patient examined, the patient's questions answered to her satisfaction with recommendations to be followed as above. Also, the patient reports that she has not had a bowel movement recently, with Relistor to be given as per Dr. Merchant. Also, the patient's most recent CEA was in February and we will repeat a CEA value. Lopez Cordova MD
[2018-04-16] MEDS: Dextrose 5%/0.9% NS 1,000 ML IV SCH (19:05)
--- NOTE | 2018-04-16 22:47 | PN ---
DATE: 04/16/2018 SUBJECTIVE: This patient was seen and evaluated earlier. Discussed with nursing staff. Patient has been tolerating the diet. Complains still epigastric discomfort. Denies complaints of diarrhea. Has had no bowel movements. Patient did have Relistor on 04/13/2018. Did have bowel movement after that. Patient has been on MiraLax. PHYSICAL EXAMINATION: VITAL SIGNS: Stable. HEENT: Atraumatic and anicteric. NECK: Supple. HEART: S1 and S2 heard. LUNGS: Bilateral air entry present. ABDOMEN: Soft. There is mild tenderness in the epigastric area. Patient does have a PTC drain present. EXTREMITIES: No cyanosis, no clubbing. NEUROLOGIC: Alert, oriented. Moves all the extremities. LABORATORY DATA: Previous labs reviewed. IMPRESSION: Metastatic pancreatic cancer, status post biliary stent block, status post internal-external stent placement. Intractable abdominal pain from constipation. RECOMMENDATIONS: 1. Follow up of the LFTs. 2. We will add another dose of today. 3. Patient does have history of gastroparesis. The diet has to be mechanical soft diet. 4. Continue the supportive care. Thank you very much for allowing us to participate in the care of the patient. Thang Merchant MD
--- NOTE | 2018-04-16 23:41 | PN ---
DATE: 04/16/2018 SUBJECTIVE: The patient is a 67-year-old female. Patient was seen in her bed, looking comfortable. No nausea, vomiting or diarrhea. No hematuria. No hematochezia. No swelling of the legs. No chest pain. No palpitation. stil lethargic and sleepy. No fever. No chills. PHYSICAL EXAMINATION: VITAL SIGNS: Temperature 98.5, pulse 59, blood pressure 116/78, respiratory rate 18. HEENT: Head: Normocephalic and atraumatic. Eyes: PERRLA. Extraocular muscles intact. Conjunctivae clear. Nose patent. Mucous membranes moist. NECK: Supple. No carotid bruit. No JVD or thyromegaly. CHEST: Bilaterally symmetrical. HEART: S1 and S2 positive. LUNGS: Clear to auscultation. ABDOMEN: Soft. Bowel sounds present. No organomegaly. EXTREMITIES: No edema. No cyanosis. NEUROLOGIC: The patient is awake and alert. Moving all four extremities. No focal deficits. MEDICATIONS: Dextrose, Dilaudid, DuoNeb, glipizide, aspirin, insulin, Lopressor, Lyrica, Marinol, Protonix, Reglan, Zestril, Zofran. LABORATORY DATA: White blood cell 10.4, hemoglobin 10.1. hematocrit 31.9, platelets 272. Glucose 44, 171, 235. ASSESSMENT AND PLAN: Ms. Hortensia Love is a 67-year-old lady with anemia, diabetes mellitus, now but glucose is dropping. I started DNS 100 mL per hour. Appreciated Gastroenterology, Oncology input. Patient has metastatic stage IV progressive pancreatic adenocarcinoma with metastasis to the lungs, retroperitoneal node, intraabdominal adenopathy, ascites, status post treatment with gemcitabine and 5-FU. Patient has cachexia mainly cachexia of malignancy and pain of the malignancy, fibromyalgia, history of hepatitis C, transient ischemic attack, depression, substance abuse, gastroesophageal reflux disease, chronic obstructive pulmonary disease, status post internal and external stent placement on 03/10/2018, noncompliant, history of colon resection, sleep apnea. Waiting for the Oncology input about chemotherapy. As per family they will talk to Dr. nation about the plan of chemotherapy. Gastrointestinal and deep venous thrombosis prophylaxis. Repeat labs. We will follow up. Georgina Ferrara MD SHANTAL
[2018-04-17] MEDS: Albuterol-Ipratrop 3 mg / 0.5 (3 ml) UD IH SCH ×4 (03:41→19:56)
[2018-04-17] MEDS: HYDROmorphone 0.5 mg/0.5 ml ISec IVP PRN ×2 (06:02→19:54)
[2018-04-17 07:20] LABS: ALB/GLOB RATIO 0.7 (1.1-1.8); ALBUMIN 3.4 g/dL (3.0-4.8); ALT/SGPT 21 U/L (7-56); AST/SGOT 101 U/L (14-36); BLOOD UREA NITROGEN 27 mg/dL (7-21); GFR AFRICAN-AMERICAN > 60; GFR NON-AFRICAN AMERICAN > 60
[2018-04-17 08:09] LABS: BASO # 0.01 K/mm3 (0.0-2.0); BASO % 0.1 % (0.0-3.0); EOS % 0.3 % (1.5-5.0); GRAN # 13.09 (1.4-6.5); GRAN % 81.8 % (50.0-68.0); HEMOGLOBIN 10.4 g/dL (12.0-16.0); LYMPH # 1.3 (1.2-3.4); LYMPH % 7.9 % (22.0-35.0); MEAN CELL VOLUME 80.6 fl (80.0-105.0); MEAN CORPUSCULAR HEMOGLOBIN 25.8 pg (25.0-35.0); MEAN PLATELET VOLUME 9.4 fl (7.0-11.0); MONO # 1.6 (0.1-0.6); MONO % 9.9 % (1.0-6.0); RBC 4.03 10^6/uL (3.5-6.1); RED CELL DISTRIBUTION WIDTH 16.6 % (11.5-14.5)
[2018-04-17] MEDS: Insulin Reg-LOW-Coverage SC SCH ×4 (08:25→19:19)
[2018-04-17] MEDS: Pantoprazole 40 mg EC Tab PO SCH (09:08)
[2018-04-17] MEDS: Morphine 30 mg SR Tab PO SCH ×2 (09:09→21:14)
[2018-04-17] MEDS: Lidocaine 5% Patch TD SCH (09:14)
[2018-04-17] MEDS: LIPASE PO SCH ×3 (09:15→17:33)
[2018-04-17] MEDS: PROTEASE PO SCH ×3 (09:15→17:33)
[2018-04-17] MEDS: AMYLASE PO SCH ×3 (09:15→17:33)
[2018-04-17] MEDS: Dextrose 5%/0.9% NS 1,000 ML IV SCH ×2 (15:49→16:04)
--- NOTE | 2018-04-17 18:24 | PN ---
DATE: 04/17/2018 This is [facility] visit on the medical floor. For Dr. Parker. SUBJECTIVE: The patient is a 67-year-old female, seen sitting up in bed, status post drainage catheter placed by Dr. Loi Zamudio with the patient known to suffer stage IV metastatic pancreatic adenocarcinoma which is progressive with documented metastasis in the lungs and adenopathy in the retroperitoneal area. With this, the patient is reporting that her pain is now modestly improved. The patient is reporting that her appetite is also a little better. With this, we will continue present medical regimen as per Dr. Ferrara with the patient to follow up as an outpatient for treatment as per Dr. Parker's recommendations as she has been lost to follow up after treatments were given in December of this year by Dr. Navarrete, her prior oncologist. PHYSICAL EXAMINATION: VITAL SIGNS: Temperature 98, pulse 81, respirations 19, blood pressure 141/62, and pulse ox 99%. HEENT: Unremarkable. NECK: Supple. HEART: Regular rate. LUNGS: Clear. ABDOMEN: Soft with minimal tenderness to general palpation. EXTREMITIES: No edema. SKIN: Warm and dry. NEUROLOGIC: Awake and alert. ABDOMEN: She does have a PTC drain present. LABORATORY DATA: The patient's labs were done. White blood cell count 16 up from 10.4 four days prior, hemoglobin of 10.4, hematocrit of 32.5, platelet count of 306,000 with a chem metabolic panel showing a BUN of 27, creatinine of 0.9 with a CEA value of 2.3. Otherwise, normal chem metabolic panel. ASSESSMENT: Stage IV progressive pancreatic adenocarcinoma with documented metastasis to the lungs, retroperitoneal nodes. Cachexia of malignancy, intractable pain of cancer, diabetes mellitus, fibromyalgia, history of transient ischemic attack?, depression, substance abuse, chronic obstructive pulmonary disease, status post drain placement, history of colon resection, noncompliance, and also constipation. PLAN: The plan for this patient after conversation with doctor is to continue present medical regimen with Relistor recommended by Dr. Merchant for her abdominal discomfort secondary to constipation he believes. We will also monitor clinically with labs with followup as an outpatient in the office for planning her treatment as per Dr. Parker's protocol. Prognosis for this patient is guarded. This is a complex patient with a comprehensive medically necessary and appropriate visit carried out in excess of 20 minutes [id number] time with the patient, with her labs and test reviewed with the patient at length, with the patient reinforced the need to follow up with Dr. Parker as an outpatient. Lopez Cordova MD
[2018-04-18] MEDS: HYDROmorphone 0.5 mg/0.5 ml ISec IVP PRN (01:57)
[2018-04-18] MEDS: Albuterol-Ipratrop 3 mg / 0.5 (3 ml) UD IH SCH ×4 (04:14→22:37)
--- NOTE | 2018-04-18 07:08 | CP.PCM.PN ---
<Yeimi Savage - Last Filed: 04/18/18 11:36> Subjective - Date & Time of Evaluation Date of Evaluation: 04/18/18 Time of Evaluation: 08:00 - Subjective Subjective: GI Progress Note for Renetta Petersen PGY2 Patient seen and examined at bedside. There were no acute overnight events as per nursing staff. Patient did have a BM yesterday. She said it was regular and denies diarrhea. She denies chest pain, shortness of breath, nausea/vomiting, fever/chills, dysuria or hematuria. Biliary drain output has been improving. Objective - Vital Signs/Intake and Output Vital Signs (last 24 hours): Temp Pulse Resp BP Pulse Ox 97.9 F 86 19 108/74 97 04/17/18 22:00 04/17/18 22:00 04/17/18 22:00 04/17/18 22:00 04/17/18 22:00 Intake and Output: 04/18/18 04/18/18 06:59 18:59 Intake Total 240 Balance 240 - Medications Medications: Current Medications Acetaminophen (Tylenol 325mg Tab) 650 mg PO Q4H PRN PRN Reason: pain fever Albuterol/Ipratropium (Duoneb 3 Mg/0.5 Mg (3 Ml) Ud) 3 ml IH [id number] [facility] Last Admin: 04/18/18 04:14 Dose: Not Given Docusate Sodium (Colace) 100 mg PO DAILY [facility] Dronabinol (Marinol) 2.5 mg PO AC [facility] Last Admin: 04/17/18 17:38 Dose: 2.5 mg Heparin Sodium (Porcine) (Heparin) 5,000 units SC Q12 [facility] PRN Reason: Protocol Last Admin: 04/17/18 21:13 Dose: 5,000 units Hydromorphone HCl (Dilaudid) 2 mg IVP Q4H PRN PRN Reason: Pain, severe (8-10) Last Admin: 04/18/18 01:57 Dose: 2 mg Dextrose/Sodium Chloride (Dextrose 5%/0.9% Ns 1000 Ml) 1,000 mls @ 100 mls/hr IV .Q10H [facility] Last Admin: 04/17/18 16:04 Dose: 100 mls/hr Insulin Human Regular (Humulin R Low) 0 units SC ACHS [facility] PRN Reason: Protocol Last Admin: 04/17/18 19:19 Dose: Not Given Lactulose (Enulose) 20 gm PO HS [facility] Last Admin: 04/17/18 21:13 Dose: 20 gm Lidocaine (Lidoderm) 1 ea TD DAILY [facility] Last Admin: 04/17/18 09:14 Dose: 1 ea Metoclopramide HCl (Reglan) 5 mg PO AC [facility] Last Admin: 04/17/18 17:41 Dose: 5 mg Metoprolol Tartrate (Lopressor) 25 mg PO DAILY [facility] Last Admin: 04/17/18 09:12 Dose: 25 mg Montelukast Sodium (Singulair) 10 mg PO DAILY [facility] Last Admin: 04/17/18 09:08 Dose: 10 mg Morphine Sulfate (Morphine Extended Release Tab) 30 mg PO Q12 [facility] Last Admin: 04/17/18 21:14 Dose: 30 mg Multivitamins/Minerals (Therapeutic-M Tab) 1 tab PO 0800 [facility] Lipase/Protease/Amylase [Creon Dr 3, 000 Units Capsule] 3,000 cap PO TID [facility] Last Admin: 04/17/18 17:33 Dose: Not Given Ondansetron HCl (Zofran Inj) 4 mg IVP Q6 PRN PRN Reason: Nausea/Vomiting Last Admin: 04/17/18 12:56 Dose: 4 mg Pantoprazole Sodium (Protonix Ec Tab) 40 mg PO DAILY [facility] Last Admin: 04/17/18 09:08 Dose: 40 mg Pregabalin (Lyrica) 75 mg PO DAILY [facility] Last Admin: 04/17/18 09:09 Dose: 75 mg - Labs Labs: 04/17/18 06:00 04/17/18 06:00 - Constitutional Appears: No Acute Distress, Chronically Ill - Head Exam Head Exam: ATRAUMATIC, NORMAL INSPECTION, NORMOCEPHALIC - Eye Exam Eye Exam: Normal appearance, PERRL Pupil Exam: NORMAL ACCOMODATION - ENT Exam ENT Exam: Mucous Membranes Moist - Respiratory Exam Respiratory Exam: Clear to Ausculation Bilateral, NORMAL BREATHING PATTERN. absent: Rales, Rhonchi, Wheezes - Cardiovascular Exam Cardiovascular Exam: REGULAR RHYTHM, +S1, +S2. absent: Gallop, Rubs, Murmur - GI/Abdominal Exam GI & Abdominal Exam: Soft, Tenderness (RUQ), Normal Bowel Sounds. absent: Rigid , Mass, Rebound - Extremities Exam Extremities Exam: Pedal Edema. absent: Calf Tenderness - Neurological Exam Neurological Exam: Alert, Awake, CN II-XII Intact - Skin Skin Exam: Dry, Warm Assessment and Plan - Assessment and Plan (Free Text) Assessment: This is a 67yo female with past medical history of chronic hep C, pancreatic ca with metastasis, COPD, DM, GERD, gastroparesis, obstructive jaundice s/p internal-external stent and non-compliance who was admitted for 1. Abdominal pain (multifactorial- metastatic ca, pain medication tolerance, gastroparesis) 2. Obstructive jaundice (improving) 3. Pancreatic Ca with metastasis 4. Narcotic dependence 5. Non-compliance Plan: Continue Lactulose and monitor BM. Continue pain management. Continue to monitor biliary drain output. Continue PPI. Continue soft, low fat diet. Palliative care on consult. Possible Celiac nerve block as per pain management. Case seen, discussed and reviewed with Dr. Merchant. Renetta Savage PGY2 <Thang Merchant V - Last Filed: 04/19/18 01:21> Objective - Vital Signs/Intake and Output Vital Signs (last 24 hours): Temp Pulse Resp BP Pulse Ox 98.2 F 85 18 136/80 100 04/18/18 23:09 04/18/18 23:09 04/18/18 23:09 04/18/18 23:09 04/18/18 23:09 Intake and Output: 04/18/18 04/19/18 18:59 06:59 Intake Total 360 Output Total 215 Balance 360 -215 - Medications Medications: Current Medications Acetaminophen (Tylenol 325mg Tab) 650 mg PO Q4H PRN PRN Reason: pain fever Albuterol/Ipratropium (Duoneb 3 Mg/0.5 Mg (3 Ml) Ud) 3 ml IH [id number] [facility] Last Admin: 04/18/18 22:37 Dose: Not Given Amylase (Pancrease 52543 U-5000 U-[id number] U) 5,000 unit PO [facility] Last Admin: 04/18/18 16:45 Dose: 5,000 unit Docusate Sodium (Colace) 100 mg PO DAILY [facility] Last Admin: 04/18/18 11:49 Dose: 100 mg Dronabinol (Marinol) 2.5 mg PO AC [facility] Last Admin: 04/18/18 16:45 Dose: 2.5 mg Heparin Sodium (Porcine) (Heparin) 5,000 units SC Q12 [facility] PRN Reason: Protocol Last Admin: 04/18/18 22:31 Dose: 5,000 units Hydromorphone HCl (Dilaudid) 2 mg IVP Q4H PRN PRN Reason: Pain, severe (8-10) Last Admin: 04/19/18 01:11 Dose: 2 mg Dextrose/Sodium Chloride (Dextrose 5%/0.9% Ns 1000 Ml) 1,000 mls @ 100 mls/hr IV .Q10H [facility] Last Admin: 04/19/18 01:05 Dose: 100 mls/hr Insulin Human Regular (Humulin R Low) 0 units SC ACHS [facility] PRN Reason: Protocol Last Admin: 04/18/18 22:32 Dose: Not Given Lactulose (Enulose) 20 gm PO HS [facility] Last Admin: 04/18/18 22:31 Dose: 20 gm Lidocaine (Lidoderm) 1 ea TD DAILY [facility] Last Admin: 04/18/18 11:12 Dose: 1 ea Metoclopramide HCl (Reglan) 5 mg PO AC [facility] Last Admin: 04/18/18 16:45 Dose: 5 mg Metoprolol Tartrate (Lopressor) 25 mg PO DAILY [facility] Last Admin: 04/18/18 11:09 Dose: 25 mg Montelukast Sodium (Singulair) 10 mg PO DAILY [facility] Last Admin: 04/18/18 11:10 Dose: 10 mg Morphine Sulfate (Morphine Extended Release Tab) 30 mg PO Q12 [facility] Last Admin: 04/18/18 22:30 Dose: 30 mg Multivitamins/Minerals (Therapeutic-M Tab) 1 tab PO 0800 [facility] Last Admin: 04/18/18 11:08 Dose: 1 tab Ondansetron HCl (Zofran Inj) 4 mg IVP Q6 PRN PRN Reason: Nausea/Vomiting Last Admin: 04/18/18 14:52 Dose: 4 mg Pantoprazole Sodium (Protonix Ec Tab) 40 mg PO DAILY [facility] Last Admin: 04/18/18 11:08 Dose: 40 mg Pregabalin (Lyrica) 75 mg PO DAILY [facility] Last Admin: 04/18/18 11:09 Dose: 75 mg - Labs Labs: 04/18/18 07:15 04/18/18 07:15 Attending/Attestation - Attestation I have personally seen and examined this patient.: Yes I have fully participated in the care of the patient.: Yes I have reviewed all pertinent clinical information, including history, physical exam and plan: Yes Notes (Text): This is an addendum to GI progress report dictated by the Advertising Copywriter.The patient was seen and examined earlier. Medical records, lab studies, imagings were reviewed. Last 24 hours events reviewed. Agreed with the above treatment plan as outlined in Advertising Copywriter 's notes the with the addition of the following Clear bile noticed in the PTC drainage back Continue pain management On laxative for constipation Supportive care 04/19/18 01:19
[2018-04-18] MEDS: Insulin Reg-LOW-Coverage SC SCH ×4 (07:13→22:32)
[2018-04-18 07:36] LABS: BASO # 0.01 K/mm3 (0.0-2.0); BASO % 0.1 % (0.0-3.0); EOS # 0.1 (0.0-0.7); EOS % 0.7 % (1.5-5.0); GRAN # 8.38 (1.4-6.5); HEMOGLOBIN 9.2 g/dL (12.0-16.0); LYMPH # 1.4 (1.2-3.4); LYMPH % 12.7 % (22.0-35.0); MEAN CORPUSCULAR HEMOGLOBIN 25.5 pg (25.0-35.0); MEAN CORPUSCULAR HGB CONC 31.1 g/dl (31.0-37.0); MEAN PLATELET VOLUME 8.9 fl (7.0-11.0); MONO # 0.8 (0.1-0.6); MONO % 7.5 % (1.0-6.0); RBC 3.61 10^6/uL (3.5-6.1); RED CELL DISTRIBUTION WIDTH 16.6 % (11.5-14.5); WHITE BLOOD COUNT 10.6 10^3/ul (4.5-11.0)
[2018-04-18 08:05] LABS: ALB/GLOB RATIO 0.8 (1.1-1.8); ALBUMIN 3.1 g/dL (3.0-4.8); ALT/SGPT 25 U/L (7-56); AST/SGOT 69 U/L (14-36); BLOOD UREA NITROGEN 16 mg/dL (7-21); CALCIUM 8.8 mg/dL (8.4-10.5); GFR AFRICAN-AMERICAN > 60; GFR NON-AFRICAN AMERICAN > 60
--- NOTE | 2018-04-18 08:11 | CP.PCM.PN ---
Subjective - Date & Time of Evaluation Date of Evaluation: 04/18/18 Time of Evaluation: 08:11 - Subjective Subjective: Hematology-Oncology Progress note for Dr. Parker Patient seen and examined at bedside sitting up. Patient seemed in no acute distress. Nursing reported no acute events overnight. Patient reported pain is 5 /10 in intensity and much improved since admission. Drain output 320cc overnight. She reported a BM yesterday with was nonbloody no melena. Denied acute complaints of fever, chills, headache, dizziness, chest pain, palpitations , SOB, cough, nausea, vomiting, dysuria, hematuria, pain/swelling in her legs bilaterally. Patient is tolerating diet. Objective - Vital Signs/Intake and Output Vital Signs (last 24 hours): Temp Pulse Resp BP Pulse Ox 97.9 F 86 19 108/74 97 04/17/18 22:00 04/17/18 22:00 04/17/18 22:00 04/17/18 22:00 04/17/18 22:00 Intake and Output: 04/18/18 04/18/18 06:59 18:59 Intake Total 240 Balance 240 - Medications Medications: Current Medications Acetaminophen (Tylenol 325mg Tab) 650 mg PO Q4H PRN PRN Reason: pain fever Albuterol/Ipratropium (Duoneb 3 Mg/0.5 Mg (3 Ml) Ud) 3 ml IH [id number] [facility] Last Admin: 04/18/18 07:46 Dose: Not Given Docusate Sodium (Colace) 100 mg PO DAILY [facility] Dronabinol (Marinol) 2.5 mg PO AC [facility] Last Admin: 04/17/18 17:38 Dose: 2.5 mg Heparin Sodium (Porcine) (Heparin) 5,000 units SC Q12 [facility] PRN Reason: Protocol Last Admin: 04/17/18 21:13 Dose: 5,000 units Hydromorphone HCl (Dilaudid) 2 mg IVP Q4H PRN PRN Reason: Pain, severe (8-10) Last Admin: 04/18/18 01:57 Dose: 2 mg Dextrose/Sodium Chloride (Dextrose 5%/0.9% Ns 1000 Ml) 1,000 mls @ 100 mls/hr IV .Q10H [facility] Last Admin: 04/17/18 16:04 Dose: 100 mls/hr Insulin Human Regular (Humulin R Low) 0 units SC ACHS [facility] PRN Reason: Protocol Last Admin: 04/17/18 19:19 Dose: Not Given Lactulose (Enulose) 20 gm PO HS [facility] Last Admin: 04/17/18 21:13 Dose: 20 gm Lidocaine (Lidoderm) 1 ea TD DAILY [facility] Last Admin: 04/17/18 09:14 Dose: 1 ea Metoclopramide HCl (Reglan) 5 mg PO AC [facility] Last Admin: 04/17/18 17:41 Dose: 5 mg Metoprolol Tartrate (Lopressor) 25 mg PO DAILY [facility] Last Admin: 04/17/18 09:12 Dose: 25 mg Montelukast Sodium (Singulair) 10 mg PO DAILY [facility] Last Admin: 04/17/18 09:08 Dose: 10 mg Morphine Sulfate (Morphine Extended Release Tab) 30 mg PO Q12 [facility] Last Admin: 04/17/18 21:14 Dose: 30 mg Multivitamins/Minerals (Therapeutic-M Tab) 1 tab PO 0800 [facility] Lipase/Protease/Amylase [Creon Dr 3, 000 Units Capsule] 3,000 cap PO TID [facility] Last Admin: 04/17/18 17:33 Dose: Not Given Ondansetron HCl (Zofran Inj) 4 mg IVP Q6 PRN PRN Reason: Nausea/Vomiting Last Admin: 04/17/18 12:56 Dose: 4 mg Pantoprazole Sodium (Protonix Ec Tab) 40 mg PO DAILY [facility] Last Admin: 04/17/18 09:08 Dose: 40 mg Pregabalin (Lyrica) 75 mg PO DAILY [facility] Last Admin: 04/17/18 09:09 Dose: 75 mg - Labs Labs: 04/18/18 07:15 04/18/18 07:15 - Constitutional Appears: Non-toxic, No Acute Distress, Chronically Ill - Head Exam Head Exam: ATRAUMATIC, NORMAL INSPECTION, NORMOCEPHALIC - Eye Exam Eye Exam: EOMI, Normal appearance, PERRL. absent: Conjunctival injection, Scleral icterus - ENT Exam ENT Exam: Mucous Membranes Moist - Respiratory Exam Respiratory Exam: Clear to Ausculation Bilateral, NORMAL BREATHING PATTERN. absent: Accessory Muscle Use, Rales, Rhonchi, Wheezes, Respiratory Distress - Cardiovascular Exam Cardiovascular Exam: +S1, +S2 - GI/Abdominal Exam GI & Abdominal Exam: Soft, Tenderness (R sided), Normal Bowel Sounds Additional comments: drain in place - Rectal Exam Rectal Exam: Deferred - Extremities Exam Extremities Exam: Normal Inspection. absent: Pedal Edema - Neurological Exam Neurological Exam: Alert, Awake, Oriented x3 - Psychiatric Exam Psychiatric exam: Normal Affect, Normal Mood - Skin Skin Exam: Dry, Intact Assessment and Plan - Assessment and Plan (Free Text) Assessment: 67yo female PMHx pancreatic ca with mets, HTN, DM2, COPD, sleep apnea, colon resection, and TIA presented to [facility] with nausea, vomiting , and abdominal pain. Patient's pain well controlled. Pain regimen adjusted and pain management/anesthesia consulted- appreciate reccs. Patient on Marinol with meals. Drain output improved. Continue PPI and Zofran. Continue lactulose and monitor BM. Patient on low fat/soft diet. GI on board- appreciate reccs. Palliative care consulted- appreciate reccs. Continue to monitor closely. Continue management as per primary. Discussed with Dr. Keith Ruiz PGY2
--- NOTE | 2018-04-18 09:13 | PN ---
DATE: 04/17/2018 SUBJECTIVE: This patient was seen and evaluated earlier today. Patient did have a good bowel movement today. No Relistor was given. PHYSICAL EXAMINATION: VITAL SIGNS: Temperature 98, blood pressure 141/62, respirations 19, O2 saturation 99%. HEENT: Atraumatic and anicteric. NECK: Supple. HEART: S1 and S2 heard. LUNGS: Bilateral air entry present. ABDOMEN: Soft. Tenderness present in the epigastric area. LABORATORY DATA: Hemoglobin 10.4, hematocrit 32.5, WBCs have gone up to 16, platelets 304. LFT: Total bilirubin 1.3, AST 101, ALT 21. IMPRESSION: This 67-year-old patient with metastatic pancreatic cancer was admitted with intractable abdominal pain. Patient does have a percutaneous transhepatic cholangiography (PTC) for obstructed metal stent. Liver function test remain stable. Patient does have chronic pain, on pain medication, morphine. Patient has a history of constipation. Patient has been moving her bowels now. The reasonable thing is to start the patient on lactulose on a regular basis to avoid constipation. Patient also has poor dentition and also has gastroparesis, probably secondary to narcotic induced. Patient would benefit from pureed food, but patient is reluctant to have it eaten. She is tolerating regular diet. We will continue to closely follow up. Monitor the biliary . Thank you very much for allowing us to participate in the care of the patient. Thang Merchant MD
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
[2018-04-18] MEDS: Pantoprazole 40 mg EC Tab PO SCH (11:08)
[2018-04-18] MEDS: Morphine 30 mg SR Tab PO SCH ×2 (11:08→22:30)
[2018-04-18] MEDS: Multivitamin With Minerals Tab PO SCH (11:08)
[2018-04-18] MEDS: Lidocaine 5% Patch TD SCH (11:12)
[2018-04-18] MEDS: Dextrose 5%/0.9% NS 1,000 ML IV SCH (14:54)
--- NOTE | 2018-04-18 15:58 | PN ---
DATE: 04/17/2018 SUBJECTIVE: The patient is a 67 years old female. The patient was seen and examined at the bedside. Boyfriend was sitting on the bedside also, Moving all four extremities. no fever, no chills. No nausea, vomiting or diarrhea. No hematuria or hematochezia. No headache or dizziness. No chest pain or no palpitations. PHYSICAL EXAMINATION: VITAL SIGNS: Temperature 97.9, pulse 56, respiratory rate 19, blood pressure 120/80 , pulse oximetry 97. HEENT: Head normocephalic, atraumatic. Eyes PERRLA. Extraocular muscles intact. Conjunctivae clear. Nose patent. NECK: Supple. No carotid bruit. No JVD or thyromegaly. CHEST: Bilaterally symmetrical. HEART: S1 and S2 positive. LUNGS: Clear to auscultation. ABDOMEN: Soft. Bowel sounds present. No organomegaly. EXTREMITIES: No edema. No cyanosis. NEUROLOGICAL: The patient is awake, alert, moving all 4 extremities. No focal deficits. MEDICATIONS: Tylenol, DuoNeb, Coumadin, Marinol, heparin, Dilaudid, Dextrose, insulin, Lidoderm, Reglan, Lopressor, Singulair, morphine therapeutic, Protonix, Lyrica. LABORATORY DATA: White blood cell 16, hemoglobin 10.4, hematocrit 32.5, platelets 386. Sodium 141, potassium 3.9, BUN 27, creatinine 0.9 and glucose 85. ASSESSMENT AND PLAN: Ms. Hortensia Love is 67 years old lady with leukocytosis, anemia with history of pancreatic cancer with metastasis. The patient has stage IV progressive pancreatic adenocarcinoma with documented metastasis of the lung, retroperitoneal nodes, and liver cachexia of malignancy, pain on malignancy, fibromyalgia, history of hepatitis C positive, history of transient ischemic attack, depression, history of substance abuse, chronic obstructive pulmonary disease status post drain placed, history of colon resection, still was actively smoking at home. Discussion done with the patient's [id number] and grandson. Continue present medical treatment. Gastrointestinal, deep venous thrombosis prophylaxes. Planning is to make the patient DNR/DNI. I will talk to the power of senior attorney, she will talk to the patient and other family members. Out of bed, physical therapy. Georgina Ferrara MD [facility] # [id number] SHANTAL
[2018-04-18] MEDS: Amylase/Lipase/Protease 5,000 Units ECC PO SCH (16:45)
[2018-04-19] MEDS: Dextrose 5%/0.9% NS 1,000 ML IV SCH (01:05)
[2018-04-19] MEDS: HYDROmorphone 0.5 mg/0.5 ml ISec IVP PRN ×2 (01:11→08:06)
--- NOTE | 2018-04-19 06:34 | CP.PCM.PN ---
Subjective - Date & Time of Evaluation Date of Evaluation: 04/19/18 Time of Evaluation: 06:31 - Subjective Subjective: S:Nurse calls: BP 168/90,HR81/ min. Patient seen at bedside. Denies headache, dizziness, heaviness in head, chest pain or sob. Medical record was reviewed. O: Last Vital Signs 3 Temp 98.2 F 04/18/18 23:09 Pulse 81 04/19/18 05:56 Resp 18 04/18/18 23:09 BP 170/90 H 04/19/18 05:56 Pulse Ox 100 04/18/18 23:09 Awake, alert. Not in distress. LUNGS:Normal breathing pattern. A:Elevated blood pressure reading. HTN. P:Give 10 AM dose of Lopressor 24 mg PO now. Objective - Vital Signs/Intake and Output Vital Signs (last 24 hours): Temp Pulse Resp BP Pulse Ox 98.2 F 81 18 170/90 H 100 04/18/18 23:09 04/19/18 05:56 04/18/18 23:09 04/19/18 05:56 04/18/18 23:09 Intake and Output: 04/18/18 04/19/18 18:59 06:59 Intake Total 360 120 Output Total 215 Balance 360 -95 - Medications Medications: Current Medications Acetaminophen (Tylenol 325mg Tab) 650 mg PO Q4H PRN PRN Reason: pain fever Albuterol/Ipratropium (Duoneb 3 Mg/0.5 Mg (3 Ml) Ud) 3 ml IH [id number] [facility] Last Admin: 04/18/18 22:37 Dose: Not Given Amylase (Pancrease 92838 U-5000 [id number] U) 5,000 unit PO AC [facility] Last Admin: 04/18/18 16:45 Dose: 5,000 unit Docusate Sodium (Colace) 100 mg PO DAILY [facility] Last Admin: 04/18/18 11:49 Dose: 100 mg Dronabinol (Marinol) 2.5 mg PO AC [facility] Last Admin: 04/18/18 16:45 Dose: 2.5 mg Heparin Sodium (Porcine) (Heparin) 5,000 units SC Q12 [facility] PRN Reason: Protocol Last Admin: 04/18/18 22:31 Dose: 5,000 units Hydromorphone HCl (Dilaudid) 2 mg IVP Q4H PRN PRN Reason: Pain, severe (8-10) Last Admin: 04/19/18 01:11 Dose: 2 mg Dextrose/Sodium Chloride (Dextrose 5%/0.9% Ns 1000 Ml) 1,000 mls @ 100 mls/hr IV .Q10H [facility] Last Admin: 04/19/18 01:05 Dose: 100 mls/hr Insulin Human Regular (Humulin R Low) 0 units SC ACHS [facility] PRN Reason: Protocol Last Admin: 04/18/18 22:32 Dose: Not Given Lactulose (Enulose) 20 gm PO HS [facility] Last Admin: 04/18/18 22:31 Dose: 20 gm Lidocaine (Lidoderm) 1 ea TD DAILY [facility] Last Admin: 04/18/18 11:12 Dose: 1 ea Metoclopramide HCl (Reglan) 5 mg PO AC [facility] Last Admin: 04/18/18 16:45 Dose: 5 mg Metoprolol Tartrate (Lopressor) 25 mg PO DAILY [facility] Last Admin: 04/19/18 05:56 Dose: 25 mg Montelukast Sodium (Singulair) 10 mg PO DAILY [facility] Last Admin: 04/18/18 11:10 Dose: 10 mg Morphine Sulfate (Morphine Extended Release Tab) 30 mg PO Q12 [facility] Last Admin: 04/18/18 22:30 Dose: 30 mg Multivitamins/Minerals (Therapeutic-M Tab) 1 tab PO 0800 [facility] Last Admin: 04/18/18 11:08 Dose: 1 tab Ondansetron HCl (Zofran Inj) 4 mg IVP Q6 PRN PRN Reason: Nausea/Vomiting Last Admin: 04/18/18 14:52 Dose: 4 mg Pantoprazole Sodium (Protonix Ec Tab) 40 mg PO DAILY [facility] Last Admin: 04/18/18 11:08 Dose: 40 mg Pregabalin (Lyrica) 75 mg PO DAILY [facility] Last Admin: 04/18/18 11:09 Dose: 75 mg - Labs Labs: 04/18/18 07:15 04/18/18 07:15
[2018-04-19] MEDS: Albuterol-Ipratrop 3 mg / 0.5 (3 ml) UD IH SCH ×2 (07:45→15:06)
[2018-04-19] MEDS: Amylase/Lipase/Protease 5,000 Units ECC PO SCH ×3 (08:05→16:47)
[2018-04-19] MEDS: Multivitamin With Minerals Tab PO SCH (08:05)
[2018-04-19] MEDS: Insulin Reg-LOW-Coverage SC SCH ×2 (08:06→12:08)
--- NOTE | 2018-04-19 08:07 | CP.PCM.PN ---
<Yeimi Savage - Last Filed: 04/19/18 10:24> Subjective - Date & Time of Evaluation Date of Evaluation: 04/19/18 Time of Evaluation: 07:00 - Subjective Subjective: GI Progress Note for Renetta Petersen PGY2 Patient seen and examined at bedside. There were no acute overnight events as per nursing staff. Patient had SBP of 165 this am and was given one dose of IV lopressor. She reports her abdominal pain has improved as well as her bowel movements. She denies chest pain, shortness of breath, nausea/vomiting/diarrhea , fever or chills, numbness/tingling. As per the nurse, patient's biliary drain has increased with almost 500ml in 24hrs. The night nurse reports that the patient's urine looks as if there is blood in it. She has not had a recent U/A. Objective - Vital Signs/Intake and Output Vital Signs (last 24 hours): Temp Pulse Resp BP Pulse Ox 98.2 F 84 18 146/96 H 100 04/18/18 23:09 04/19/18 07:00 04/18/18 23:09 04/19/18 07:00 04/18/18 23:09 Intake and Output: 04/19/18 04/19/18 06:59 18:59 Intake Total 1320 Output Total 560 Balance 760 - Medications Medications: Current Medications Acetaminophen (Tylenol 325mg Tab) 650 mg PO Q4H PRN PRN Reason: pain fever Albuterol/Ipratropium (Duoneb 3 Mg/0.5 Mg (3 Ml) Ud) 3 ml IH [id number] [facility] Last Admin: 04/19/18 07:45 Dose: Not Given Amylase (Pancrease [id number] U-5000 [id number] U) 5,000 unit PO AC [facility] Last Admin: 04/18/18 16:45 Dose: 5,000 unit Docusate Sodium (Colace) 100 mg PO DAILY [facility] Last Admin: 04/18/18 11:49 Dose: 100 mg Dronabinol (Marinol) 2.5 mg PO AC [facility] Last Admin: 04/18/18 16:45 Dose: 2.5 mg Heparin Sodium (Porcine) (Heparin) 5,000 units SC Q12 [facility] PRN Reason: Protocol Last Admin: 04/18/18 22:31 Dose: 5,000 units Hydromorphone HCl (Dilaudid) 2 mg IVP Q4H PRN PRN Reason: Pain, severe (8-10) Last Admin: 04/19/18 01:11 Dose: 2 mg Dextrose/Sodium Chloride (Dextrose 5%/0.9% Ns 1000 Ml) 1,000 mls @ 100 mls/hr IV .Q10H [facility] Last Admin: 04/19/18 01:05 Dose: 100 mls/hr Insulin Human Regular (Humulin R Low) 0 units SC ACHS [facility] PRN Reason: Protocol Last Admin: 04/18/18 22:32 Dose: Not Given Lactulose (Enulose) 20 gm PO HS [facility] Last Admin: 04/18/18 22:31 Dose: 20 gm Lidocaine (Lidoderm) 1 ea TD DAILY [facility] Last Admin: 04/18/18 11:12 Dose: 1 ea Metoclopramide HCl (Reglan) 5 mg PO AC [facility] Last Admin: 04/18/18 16:45 Dose: 5 mg Metoprolol Tartrate (Lopressor) 25 mg PO DAILY [facility] Last Admin: 04/19/18 05:56 Dose: 25 mg Montelukast Sodium (Singulair) 10 mg PO DAILY [facility] Last Admin: 04/18/18 11:10 Dose: 10 mg Morphine Sulfate (Morphine Extended Release Tab) 30 mg PO Q12 [facility] Last Admin: 04/18/18 22:30 Dose: 30 mg Multivitamins/Minerals (Therapeutic-M Tab) 1 tab PO 0800 [facility] Last Admin: 04/18/18 11:08 Dose: 1 tab Ondansetron HCl (Zofran Inj) 4 mg IVP Q6 PRN PRN Reason: Nausea/Vomiting Last Admin: 04/18/18 14:52 Dose: 4 mg Pantoprazole Sodium (Protonix Ec Tab) 40 mg PO DAILY [facility] Last Admin: 04/18/18 11:08 Dose: 40 mg Pregabalin (Lyrica) 75 mg PO DAILY [facility] Last Admin: 04/18/18 11:09 Dose: 75 mg - Labs Labs: 04/18/18 07:15 04/18/18 07:15 - Constitutional Appears: No Acute Distress, Chronically Ill - Head Exam Head Exam: ATRAUMATIC, NORMAL INSPECTION, NORMOCEPHALIC - Eye Exam Eye Exam: PERRL Pupil Exam: NORMAL ACCOMODATION - ENT Exam ENT Exam: Mucous Membranes Moist - Respiratory Exam Respiratory Exam: Clear to Ausculation Bilateral, NORMAL BREATHING PATTERN. absent: Rales, Rhonchi, Wheezes - Cardiovascular Exam Cardiovascular Exam: REGULAR RHYTHM, +S1, +S2. absent: Gallop, Rubs, Murmur - GI/Abdominal Exam GI & Abdominal Exam: Soft, Normal Bowel Sounds. absent: Rigid, Tenderness, Mass , Rebound Additional comments: biliary drain in place- draining dark bile. - Extremities Exam Extremities Exam: Pedal Edema. absent: Calf Tenderness - Neurological Exam Neurological Exam: Alert, Awake, CN II-XII Intact - Skin Skin Exam: Dry, Warm Assessment and Plan - Assessment and Plan (Free Text) Assessment: This is a 67yo female with past medical history of chronic hep C, pancreatic ca with metastasis, COPD, DM, GERD, gastroparesis, obstructive jaundice s/p internal-external stent and non-compliance who was admitted for 1. Abdominal pain (multifactorial- metastatic ca, pain medication tolerance, gastroparesis)- improved 2. Obstructive jaundice (improving) 3. Hematuria (seen by nursing staff) 4. Pancreatic Ca with metastasis 5. Narcotic dependence 6. Non-compliance Plan: Will obtain urinalysis to check urine for blood. Hgb is stable. Patient is on lactulose. Will continue to monitor BM and biliary drain output. Continue PPI and low fat and soft diet. Continue pain management. Case seen, discussed and reviewed with Dr. Merchant. Renetta Savage PGY2 <Thang Merchant V - Last Filed: 04/19/18 23:29> Objective - Vital Signs/Intake and Output Vital Signs (last 24 hours): Temp Pulse Resp BP Pulse Ox 97.7 F 82 20 158/89 H 98 04/19/18 14:00 04/19/18 14:00 04/19/18 14:00 04/19/18 14:00 04/19/18 14:00 Intake and Output: 04/19/18 04/20/18 18:59 06:59 Intake Total 360 Balance 360 - Labs Labs: 04/18/18 07:15 04/18/18 07:15 Attending/Attestation - Attestation I have personally seen and examined this patient.: Yes I have fully participated in the care of the patient.: Yes I have reviewed all pertinent clinical information, including history, physical exam and plan: Yes Notes (Text): This is an addendum to GI progress report dictated by the [employer].The patient was seen and examined earlier. Medical records, lab studies, imagings were reviewed. Last 24 hours events reviewed. Agreed with the above treatment plan as outlined in [employer] 's notes the with the addition of the following tolerating diet On laxative with good bowel movements PTC biliary drain draining well. Abdomen soft mild tenderness on deep pa the epigastric area Continue soft diet Supportive care Long-term prognosis poor 04/19/18 23:28
[2018-04-19 08:35] VITALS: RESP 20
[2018-04-19] MEDS: Morphine 30 mg SR Tab PO SCH (11:08)
[2018-04-19] MEDS: Lidocaine 5% Patch TD SCH (11:08)
[2018-04-19] MEDS: Pantoprazole 40 mg EC Tab PO SCH (11:10)
[2018-04-19 15:54] VITALS: BP 158/89; PULSE 82; TEMP 97.7; O2SAT 98
--- NOTE | 2018-04-19 16:23 | PN ---
DATE: 04/18/2018 SUBJECTIVE: The patient is 67-year-old female. The patient is seen and examined on the bedside on 04/18/2018. Sitting on the chair. I am doing progress note for 04/18/2018. The patient is looking comfortable. No nausea, vomiting, diarrhea. No hematuria. No hematochezia. No swelling of the legs. No chest pain. No palpitation. No headache. No dizziness. Tolerating food very well. Getting pain medications, some time is little bit lethargic due to pain medication. PHYSICAL EXAMINATION: VITAL SIGNS: Temperature 98.6, respiratory rate 18, blood pressure 145/86, pulse oximetry 99. HEENT: Head normocephalic, atraumatic. Eyes PERRLA. Extraocular muscles intact. Conjunctivae clear. Nose patent. Mucous membrane moist. NECK: Supple. No carotid bruit. No JVD or thyromegaly. CHEST: Bilaterally symmetrical. HEART: S1 and S2 positive. LUNGS: Clear to auscultation. ABDOMEN: Soft. Bowel sounds positive. No organomegaly. EXTREMITIES: No edema. No cyanosis. NEUROLOGICAL: The patient is awake and alert. Moving all 4 extremities. No focal deficits. LABORATORY DATA: White blood cells 10.6, hemoglobin 9.2, hematocrit 27.6, platelets 641. Sodium 142, potassium 3.7, BUN noted , creatinine 0.9, glucose 106. ASSESSMENT AND PLAN: Ms. Hortensia Love is a 67-year-old lady with anemia, with history of pancreatic cancer with metastasis, hypertension, diabetes mellitus, had multiple admissions for uncontrolled pain and nausea and vomiting, this time again nausea, vomiting, abdominal pain. Has external stents placed on 03/10/2018. Abdominal pain resolved and now it came back. The patient still has sleep apnea, chronic obstructive pulmonary disease, pancreatic cancer with metastasis to the lungs and liver, had chemotherapy 1 year ago, obstructive jaundice, anxiety, depression, chronic anemia. The patient is noncompliant, still actively smoking at home, is noncompliant with chemotherapy. I recalled Palliative Care, Sonia Galarza. She spoke to the patient and according to the patient, her decision will be from power of form setter helper. Since the patient is aware that her cancer is advanced, she has poor prognosis. I talked couple of times with her power of form setter helper, but will talk again to make the patient DNR and DNI. She is not interested for getting cancer treatment at this time. Now, we will continue present treatment. GI and deep venous thrombosis prophylaxis, pain management, monitor the patient management. We will follow. Georgina Ferrara MD MTDD
== END 2018-04-19 18:10 | disposition home health service (06) | DRG 435 ==
LOC: ED 11:03 → ERH 12:59 → 5RSO 15:09 → OBSVTOIN 04-10 08:32 → 5RSO 04-18 12:59
PROVIDERS: ADMIT Internal Medicine; ATTEND Internal Medicine
DX: C25.0 Malignant neoplasm of head of pancreas (principal); K83.1 Obstruction of bile duct; C78.01 Secondary malignant neoplasm of right lung; C78.02 Secondary malignant neoplasm of left lung; C78.7 Secondary malignant neoplasm of liver and intrahepatic bile duct; R18.8 Other ascites; F11.20 Opioid dependence, uncomplicated; R64 Cachexia; G89.3 Neoplasm related pain (acute) (chronic); I10 Essential (primary) hypertension; J44.9 Chronic obstructive pulmonary disease, unspecified; K21.9 Gastro-esophageal reflux disease without esophagitis; M19.011 Primary osteoarthritis, right shoulder; F17.210 Nicotine dependence, cigarettes, uncomplicated; B18.2 Chronic viral hepatitis C; E87.6 Hypokalemia; F32.9 Major depressive disorder, single episode, unspecified; F41.9 Anxiety disorder, unspecified; E11.43 Type 2 diabetes mellitus with diabetic autonomic (poly)neuropathy; K31.84 Gastroparesis; E11.65 Type 2 diabetes mellitus with hyperglycemia; G47.30 Sleep apnea, unspecified; D64.9 Anemia, unspecified; K59.03 Drug induced constipation; T40.2X5A Adverse effect of other opioids, initial encounter; E11.649 Type 2 diabetes mellitus with hypoglycemia without coma; R59.9 Enlarged lymph nodes, unspecified; E11.51 Type 2 diabetes mellitus with diabetic peripheral angiopathy without gangrene; M79.7 Fibromyalgia; Z91.19 Patient's noncompliance with other medical treatment and regimen; Z86.73 Personal history of transient ischemic attack (TIA), and cerebral infarction without residual deficits; Z90.49 Acquired absence of other specified parts of digestive tract; Z92.21 Personal history of antineoplastic chemotherapy; Z79.84 Long term (current) use of oral hypoglycemic drugs

== ENCOUNTER 2018-04-27 19:07 | Inpatient (IN) | payer MEDICARE, OTHER ==
[2018-04-27] MEDS ORDERED: Sodium Chloride 0.9% 1,000 ML IV STA (19:37)
[2018-04-27] MEDS ORDERED: HYDROmorphone 0.5 mg/0.5 ml ISec IVP STA (19:38)
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
[2018-04-27 21:41] LABS: BASO # 0.01 K/mm3 (0.0-2.0); BASO % 0.1 % (0.0-3.0); EOS # 0.1 (0.0-0.7); EOS % 0.3 % (1.5-5.0); GRAN # 14.31 (1.4-6.5); GRAN % 84.7 % (50.0-68.0); HEMOGLOBIN 11.3 g/dL (12.0-16.0); LYMPH # 1.6 (1.2-3.4); LYMPH % 9.4 % (22.0-35.0); MEAN CELL VOLUME 79.4 fl (80.0-105.0); MEAN CORPUSCULAR HEMOGLOBIN 25.9 pg (25.0-35.0); MEAN CORPUSCULAR HGB CONC 32.6 g/dl (31.0-37.0); MEAN PLATELET VOLUME 8.6 fl (7.0-11.0); MONO # 0.9 (0.1-0.6); MONO % 5.5 % (1.0-6.0); RBC 4.37 10^6/uL (3.5-6.1); RED CELL DISTRIBUTION WIDTH 16.4 % (11.5-14.5); WHITE BLOOD COUNT 16.9 10^3/ul (4.5-11.0)
[2018-04-27 21:48] LABS: INR 1.29 (0.93-1.08); PROTHROMBIN TIME 14.8 SECONDS (9.4-12.5)
[2018-04-27 21:50] LABS: PARTIAL THROMBOPLASTIN TIME 20.6 Seconds (25.1-36.5)
[2018-04-27 22:17] LABS: ALB/GLOB RATIO 0.7 (1.1-1.8); ALBUMIN 3.6 g/dL (3.0-4.8); ALT/SGPT 18 U/L (7-56); AMYLASE 150 U/L (35-125); AST/SGOT 83 U/L (14-36); BLOOD UREA NITROGEN 14 mg/dL (7-21); CALCIUM 9.1 mg/dL (8.4-10.5); GFR AFRICAN-AMERICAN > 60; GFR NON-AFRICAN AMERICAN > 60; LIPASE 625 U/L (23-300)
[2018-04-27 22:23] LABS: TROPONIN I < 0.01 ng/mL
[2018-04-28] MEDS ORDERED: cefTRIAXone 1 gm 1 GM/100 ML BAG IVPB STA (00:14)
[2018-04-28] MEDS ORDERED: metroNIDAZOLE IV 500 mg/100 ml 500 MG/100 ML BAG IVPB STA ×2 (00:14→03:25)
[2018-04-28] MEDS ORDERED: Sodium Chloride 0.9% 1,000 ML IV STA (00:50)
[2018-04-28 06:40] VITALS: BMI 28.4
--- NOTE | 2018-04-28 09:10 | CARD ---
APPROVED REPORT EKG Measurement Heart [id number] <Conclusion> Sinus tachycardia Right atrial enlargement Nonspecific ST and T wave abnormality Abnormal ECG
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
[2018-04-28] MEDS ORDERED: CREON 3000 UNIT PO SCH (10:00)
[2018-04-28] MEDS: Morphine 30 mg SR Tab PO SCH ×2 (10:26→21:14)
[2018-04-28] MEDS: Pantoprazole 40 mg EC Tab PO SCH (10:27)
--- NOTE | 2018-04-28 10:34 | CT ---
PROCEDURE: CT Abdomen and Pelvis without intravenous contrast HISTORY: abd pain COMPARISON: 03/09/2018 TECHNIQUE: Without contrast.. Contrast dose: 0 Radiation dose: Total exam DLP = 490.11 mGy-cm. This CT exam was performed using one or more of the following dose reduction techniques: Automated exposure control, adjustment of the mA and/or kV according to patient size, and/or use of iterative reconstruction technique. FINDINGS: LOWER THORAX: Multiple pulmonary masses consistent with metastatic disease. No infiltrate. Anterior epicardial metastasis. LIVER: Multiple hepatic masses consistent with metastasis. Percutaneous biliary drainage catheter extending to the duodenum. Mild pneumobilia. Smooth contour. Normal size. Normal attenuation. GALLBLADDER AND BILE DUCTS: Gallbladder wall irregularly thickened. Suspicious for neoplasm. Consider correlation with ultrasound examination. Questionably new since prior examination. No calcified gallstones. No pericholecystic fluid. PANCREAS: Diffuse pancreatic ductal dilatation. Lobulated pancreatic head mass. Poorly defined due to the absence of intravenous contrast. This extends to the franko hepatis. Probable peripancreatic lymphadenopathy. SPLEEN: Unremarkable. ADRENALS: Unremarkable. No mass. KIDNEYS AND URETERS: 2.6 cm left upper pole renal cortical cyst. No renal calculus or hydronephrosis. VASCULATURE: Unremarkable. No aortic aneurysm. BOWEL: Status post partial right colectomy. Surgical clips and sutures about right colon. There is mural thickening of the visualize right colon. This is nonspecific. This may be neoplastic, inflammatory or ischemic in etiology. No bowel obstruction. Diverticulosis noted in the sigmoid colon. There are scattered colonic diverticulae elsewhere. . APPENDIX: Not identified PERITONEUM: No ascites. No pneumoperitoneum. LYMPH NODES: Celiac axis lymphadenopathy. Retroperitoneal and left retrocrural lymphadenopathy. No pelvic lymphadenopathy appreciated. BLADDER: Unremarkable. REPRODUCTIVE: Normal uterus with several small calcified uterine fibroids. BONES: No acute fracture. OTHER FINDINGS: None. IMPRESSION: Presumed pancreatic malignancy. Pulmonary and hepatic metastasis. Percutaneous transhepatic biliary drainage catheter extends to duodenum. Mild pneumobilia. Epicardial, celiac axis, peripancreatic, retroperitoneal and retrocrural lymphadenopathy noted. Irregular thickening of gallbladder wall. Consider correlation with ultrasound examination. Mural thickening of the visualize right colon status post partial right colectomy. Nonspecific. See above. Additional minor findings as above. Preliminary interpretation of this examination was reported by [facility] at 11:52 p.m. on 04/27/2018. There is concurrence of this report with the preliminary interpretation.
[2018-04-28] MEDS: Amylase/Lipase/Protease 5,000 Units ECC PO SCH ×2 (11:34→16:41)
[2018-04-28] MEDS: Morphine 2 mg/ml ISec IVP PRN (17:29)
[2018-04-29 00:26] LABS: URINE BILIRUBIN NEGATIVE (NEGATIVE); URINE BLOOD NEGATIVE (NEGATIVE); URINE GLUCOSE (UA) NEGATIVE (NEGATIVE); URINE LEUKOCYTE ESTERASE NEGATIVE Leu/uL (NEGATIVE); URINE PROTEIN NEGATIVE mg/dL (<30 mg/dL); URINE UROBILINOGEN 0.2 E.U./dL (<1 E.U./dL)
[2018-04-29 00:29] LABS: URINE APPEARANCE CLEAR (CLEAR); URINE COLOR YELLOW (YELLOW)
[2018-04-29] MEDS: Morphine 2 mg/ml ISec IVP PRN ×4 (01:33→17:29)
[2018-04-29 06:26] LABS: URINE BILIRUBIN SMALL (NEGATIVE); URINE BLOOD NEGATIVE (NEGATIVE); URINE GLUCOSE (UA) NEGATIVE (NEGATIVE); URINE LEUKOCYTE ESTERASE SMALL Leu/uL (NEGATIVE); URINE PROTEIN TRACE mg/dL (<30 mg/dL); URINE UROBILINOGEN 0.2 E.U./dL (<1 E.U./dL)
[2018-04-29 06:31] LABS: URINE APPEARANCE CLEAR (CLEAR); URINE COLOR YELLOW (YELLOW)
[2018-04-29 07:43] LABS: URINE BACTERIA MOD (NEG); URINE RBC 0 - 2 /hpf (0-2)
[2018-04-29 07:44] LABS: URINE AMORPHOUS SEDIMENT FEW
[2018-04-29] MEDS: Amylase/Lipase/Protease 5,000 Units ECC PO SCH ×3 (08:21→17:30)
[2018-04-29] MEDS: Pantoprazole 40 mg EC Tab PO SCH (09:22)
[2018-04-29] MEDS: Morphine 30 mg SR Tab PO SCH ×2 (09:22→22:01)
[2018-04-29] MEDS ORDERED: Lidocaine 2% Inj (20ml) ONE (13:47)
[2018-04-29] MEDS ORDERED: Iodixanol 320 MG/ML 100 ML BOTTLE IV ONE (13:48)
[2018-04-29] MEDS ORDERED: Midazolam 2 MG/2 ML VIAL ONE ×2 (15:04→15:45)
--- NOTE | 2018-04-29 19:37 | VASCULAR ---
PROCEDURE: 1. Percutaneous removal the patient's obstructed internal biliary stent 2. Repositioning and exchange of the patient's right sided internal/external biliary drain. HISTORY: Advanced pancreatic CA. Obstructed and migrated internal metallic biliary stent. Stent needs removal. Previously placed internal/external biliary drain which has been pulled partially out. Needs drain replacement PHYSICIAN(S): Loi Zamudio MD. TECHNIQUE: The relative risks and indications of the procedure were explained to the patient and consent obtained. The patient was placed prone on the arteriogram table and the internal/external biliary drain prepped and draped usual sterile fashion. Conscious sedation monitoring were provided throughout the procedure. The patient was given appropriate antibiotics prior to the procedure. Contrast was injected through the biliary drain and a limited cholangiogram performed. This revealed the internal/external biliary drain had been pulled partially out in was above the level of obstruction The drain was removed over a Glidewire. A bearing sting catheter was used to negotiate the occluded and migrated internal biliary stent. A support wire was placed in the duodenum. An 11 Chinese sheath was placed in the biliary system. 0.035 body wires were placed. 12-20 mm snare was used to retrieve the migrated an occluded internal biliary stent. It was removed with a sheath. Over the remaining guidewire, a new 14 Chinese internal/external biliary drainage catheter was placed from the right-sided approach to the duodenum. It was flushed and secured. The patient tolerated the procedure well. FINDINGS: The internal/external biliary drain had been pulled back above the level of obstruction. Moderate biliary dilatation was noted. The previously placed internal metallic biliary stent had migrated and was obstructed. This was successfully removed. There is a malignant appearing obstruction of the common bile duct to the level of the cystic duct. IMPRESSION: 1.Successful percutaneous retrieval of the obstructed in migrated internal biliary stent. 2. 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 This was successfully crossed with the glidewire and catheter. 3. Successful placement of a new 14 Chinese internal/external biliary drain
--- NOTE | 2018-04-29 23:36 | PN ---
DATE: 04/29/2018 SUBJECTIVE: The patient is a 67-year-old female. The patient was seen and examined at bedside on 04/29/2018, looking comfortable. Status post procedure. Pain is getting better. No nausea, vomiting. No headache. No dizziness. No chest pain. No palpitation. Blood pressure is still high. I will rearrange the blood pressure medication. PHYSICAL EXAMINATION: VITAL SIGNS: Temperature 97.6, pulse 89, blood pressure 150/91, respiratory rate 19. HEENT: Head normocephalic, atraumatic. Eyes PERRLA. Extraocular muscles intact. Conjunctivae clear. Nose patent. Mucous membrane moist. NECK: Supple. No carotid bruit. No JVD or thyromegaly. CHEST: Bilaterally symmetrical. HEART: S1 and S2 positive. LUNGS: Clear to auscultation. ABDOMEN: Soft. Bowel sounds positive. No organomegaly. EXTREMITIES: No edema. No cyanosis. NEUROLOGICAL: The patient is awake and alert. Moving all 4 extremities. No focal deficits. MEDICATIONS: Metoprolol, Lyrica, morphine, Pancrease, Protonix, Reglan, Singulair, NS, Tylenol, Zestril, Zofran. LABORATORY DATA: White blood cells 15.9, hemoglobin 11.3, hematocrit 34.7, platelets 403. Glucose 79, 107, 81. ASSESSMENT AND PLAN: Ms. Hortensia Love is a 67-year-old female with leukocytosis, anemia, hyperglycemia, proteinuria, ketonuria, bilirubinuria and urinary tract infection, went for procedure by Dr. Loi Zamudio. Percutaneous removal of the patient's obstructed internal biliary stent and repositioning and exchange of the patient's right-sided internal-external biliary drain by Dr. Loi Zamudio. The patient has history of metastatic pancreatic cancer, diabetes mellitus, hypertension, hypercholesterolemia, has pain of malignancy. Discussion done with the family. Consult called with Sonia Galarza. The patient has history of chronic obstructive pulmonary disease, transient ischemic attack, history of sepsis. Gastrointestinal and deep venous thrombosis prophylaxis. Repeat labs. We will followup. Georgina Ferrara MD [facility] # [id number]
--- NOTE | 2018-04-30 03:57 | PN ---
DATE: 04/28/2018 SUBJECTIVE: The patient is a 67-year-old female. Patient was seen and examined on the bedside on 04/28/2018. Looking comfortable. Complaining about abdominal pain, sometime nauseous, anxiety but no fever, no chills. No hematuria. No hematochezia. PHYSICAL EXAMINATION: VITAL SIGNS: Temperature 98.6, pulse 94, blood pressure 159/98, respiratory rate 18. HEENT: Head: Normocephalic, atraumatic. Eyes: PERRLA. Extraocular muscles intact. Conjunctivae clear. Nose patent. Mucous membrane moist. NECK: Supple. No carotid bruit. No JVD or thyromegaly. CHEST: Bilaterally symmetrical. HEART: S1 and S2 positive. LUNGS: Clear to auscultation. ABDOMEN: Soft. Bowel sounds present. No organomegaly. EXTREMITIES: No edema. No cyanosis. NEUROLOGICAL: Patient is awake, alert. Moving all 4 extremities. No focal deficits. MEDICATIONS: Lopressor, Lyrica, morphine, epinephrine, amylase, Protonix, Reglan, Singulair, NS, Tylenol, Zestril, Zofran. LABORATORY DATA: White blood cell 16.9, hemoglobin 11.3, hematocrit 34.7, platelets 403. Sugar 99. ASSESSMENT AND PLAN: Ms. Hortensia Love is a 67-year-old lady with the history of hypertension; chronic obstructive pulmonary disease; dizziness; transient ischemic attack; abdominal pain; numbness, tingling in the hands, legs and thighs; diabetes mellitus type 2, not very controlled; history of sepsis, pancreatic stage III cancer with metastasis to the lungs and bones, status post chemotherapy; hepatitis C positive; colon surgery; appendectomy; colon resection; liver biopsy; history of lot of weight loss; anxiety; depression, came in the hospital with intractable nausea, vomiting, getting Zofran. Interventional Radiology consult called. Gastrointestinal and deep venous thrombosis prophylaxis. Repeat labs. We will follow up. Georgina Ferrara MD
[2018-04-30] MEDS: Morphine 2 mg/ml ISec IVP PRN ×3 (05:52→23:23)
[2018-04-30] MEDS: Sodium Chloride 0.45% 1,000 ML IV SCH ×2 (05:55→17:01)
[2018-04-30 07:09] LABS: IRON 25 ug/dL (45-180)
[2018-04-30 07:23] LABS: % IRON SATURATION 13 % (20-55); TOTAL IRON BINDING CAPACITY 198 ug/dL (265-497)
[2018-04-30] MEDS: Amylase/Lipase/Protease 5,000 Units ECC PO SCH ×3 (07:46→16:37)
[2018-04-30] MEDS: Pantoprazole 40 mg EC Tab PO SCH (09:24)
[2018-04-30] MEDS: Morphine 30 mg SR Tab PO SCH ×2 (09:25→21:51)
[2018-04-30 14:18] LABS: FOLATE 4.6 ng/mL
[2018-05-01] MEDS: Morphine 2 mg/ml ISec IVP PRN ×3 (02:58→21:55)
--- NOTE | 2018-05-01 07:02 | CON ---
DATE: 04/30/2018 PULMONARY CONSULTATION REFERRING PHYSICIAN: Georgina Ferrara MD REASON FOR CONSULTATION: Metastatic disease to lung, chronic lung disease. HISTORY OF PRESENT ILLNESS: This is a 67-year-old female, well known to me from previous admission and from the office, not very compliant with the followup, has a pancreatic cancer with mets to the lungs and the liver, comes in with nausea and vomiting. She was recently hospitalized. Issue with her to get to chemotherapy. She is not out as much to wish to get the chemotherapy from Dr. Parker's office; it led them to the hospital. Presently, she is sitting at the side of the bed with nausea and vomiting not going away with Reglan which she is getting [id number]. Has a chronic abdominal pain, short of breath with exertion. No hemoptysis or emesis. No leg pain or leg swelling. PAST MEDICAL HISTORY: Chronic obstructive lung disease, hypertension, diabetes, metastatic pancreatic cancer, history of hepatitis C, depression, adjustment disorder. ALLERGIES: NONE KNOWN. SOCIAL HISTORY: Still smokes. Denies any alcohol use. FAMILY HISTORY: No significant cardiopulmonary disease reported. MEDICATIONS: She is on metoprolol tartrate 25 mg daily, Lyrica 75 mg daily, morphine 2 mg every 4 hours p.r.n., also morphine extended release tablet 30 mg every 12 hours, amylase and 5000 units with meals, Protonix 40 mg daily, Reglan 5 mg before meals, Singulair 10 mg daily, Tylenol p.r.n., Zestril 40 mg daily. REVIEW OF SYSTEM: No headache, no rhinitis. Short of breath with exertion. Has nausea, vomiting, abdominal pain. No dysuria. No leg pain or leg swelling. PHYSICAL EXAMINATION: GENERAL: Sitting side of the bed, nauseated. VITAL SIGNS: Temperature is 98, heart rate is 89, respiratory rate is 20, blood pressure 141/89, pulse ox 98% on room air. HEENT: Moist mucous membranes. No ulcer or oral thrush noted. NECK: Supple. No JVD. LUNGS: Have a few scattered rhonchi. HEART: S1 and S2. ABDOMEN: Epigastric area and right upper quadrant tenderness; otherwise, positive bowel sounds EXTREMITIES: There is no edema. NEUROLOGIC: Awake, awake, and follows simple commands. LABORATORY DATA: Shows hemoglobin 11.3, hematocrit 34.7, WBC 16.9, platelet is 403. INR 1.29. Iron 25, triglycerides 143, cholesterol 136. Vitamin B12 of 882. Folate 4.6. Sodium 144, potassium 3.3, chloride 100, bicarbonate 28, BUN 14, creatinine 0.6, glucose 114, calcium 9.1, total bili 1.3, AST 83, ALT 18, alk phos is 238. Troponin less than 0.01. Albumin 3.6, amylase 150, lipase is 625. Microbiology, blood culture has been negative. Has a CT of the abdomen and pelvis done on admission, which shows presumed pancreatic malignancy, pulmonary and hepatic metastatic disease, percutaneous transhepatic biliary drain has been placed, the catheter extends to the duodenum, mild pneumobilia, pancreatic lymphadenopathy, thickening of the gallbladder, chronic. IMPRESSION AND PLAN: Metastatic pancreatic cancer with recurrent nausea and vomiting, increased pain. Has a biliary obstruction requiring stent, hypertension, chronic obstructive lung disease, history of TIA, diabetes, hepatitis C. Spoke to nursing staff. Zofran 4 mg every 4 hours p.r.n. is added. We will increase Reglan to 10 mg. Proton inhibitors gastric prophylaxis. Case also discussed with Oncology, Dr. Parker, to follow the patient. Seems like she has wasting away, unable to keep the calories; on top of it, unable to get chemotherapy, especially because she is not home enough to follow up as outpatient to get chemotherapy. We will request Oncology to see the patient and help and guide. Thank you and we will follow with you. Linnea Stephen MD
[2018-05-01] MEDS: Amylase/Lipase/Protease 5,000 Units ECC PO SCH ×3 (09:06→16:55)
[2018-05-01 09:40] LABS: HEMOGLOBIN 9.9 g/dL (12.0-16.0); MEAN CELL VOLUME 77.9 fl (80.0-105.0); MEAN CORPUSCULAR HEMOGLOBIN 25.8 pg (25.0-35.0); MEAN CORPUSCULAR HGB CONC 33.1 g/dl (31.0-37.0); MEAN PLATELET VOLUME 8.9 fl (7.0-11.0); RBC 3.84 10^6/uL (3.5-6.1); RED CELL DISTRIBUTION WIDTH 16.9 % (11.5-14.5); WHITE BLOOD COUNT 13.9 10^3/ul (4.5-11.0)
[2018-05-01] MEDS: Morphine 30 mg SR Tab PO SCH ×2 (09:45→20:44)
[2018-05-01] MEDS: Pantoprazole 40 mg EC Tab PO SCH (09:47)
[2018-05-01 10:00] LABS: ALB/GLOB RATIO 0.7 (1.1-1.8); ALBUMIN 2.7 g/dL (3.0-4.8); ALT/SGPT 20 U/L (7-56); AST/SGOT 78 U/L (14-36); BLOOD UREA NITROGEN 8 mg/dL (7-21); CALCIUM 8.5 mg/dL (8.4-10.5); GFR AFRICAN-AMERICAN > 60; GFR NON-AFRICAN AMERICAN > 60
[2018-05-01] MEDS ORDERED: Magnesium Citrate Oral SOL (300 ml) PO ONE (17:55)
[2018-05-01] MEDS: POLYETHYLENE GLYCOL 3350 17 GM/Dose PACKET PO SCH (18:52)
--- NOTE | 2018-05-01 21:44 | CP.PCM.PN ---
Subjective - Date & Time of Evaluation Date of Evaluation: 05/01/18 Time of Evaluation: 21:44 - Subjective Subjective: Nurse calls and tells that 2 mg morphine IV is due for pain and BP is 93/64, heart rate is 120/min, if she can give morphine sulfate. Patient was seen at bedside. Denies vomiting, diarrhoea, no bowel movement even after receiving laxative, denies chest pain, sob, sweating, palpitation, no bleeding from drainage. Medical record was reviewed. K is borderline low. H & H have dropped. Has received some IV fluids. This 67 year old woman was admitted RLQ abdominal pain, intractable nausea, vomiting. Has PMH of metastatic pancreatic cancer stage III with mets to lung, S/P chemotherapy, HTN, dizziness, TIA, COPD, DM II, diabetic neuropathy, anxiety, depression, fibroid, colon resection, insertion of biliary stent/drainage. Objective - Vital Signs/Intake and Output Vital Signs (last 24 hours): Temp Pulse Resp BP Pulse Ox 98.2 F 83 20 143/92 H 96 05/01/18 14:00 05/01/18 14:00 05/01/18 14:00 05/01/18 14:00 05/01/18 14:00 Intake and Output: 05/01/18 05/02/18 18:59 06:59 Intake Total 360 Balance 360 - Medications Medications: Current Medications Acetaminophen (Tylenol 325mg Tab) 650 mg PO Q4H PRN PRN Reason: Pain, Mild (1-3) Last Admin: 05/01/18 00:32 Dose: 650 mg Amylase (Pancrease [id number] U) 5,000 unit PO WM [facility] Last Admin: 05/01/18 16:55 Dose: 5,000 unit Bisacodyl (Dulcolax) 10 mg RC DAILY [facility] Last Admin: 05/01/18 18:52 Dose: 10 mg Lisinopril (Zestril) 40 mg PO DAILY [facility] Last Admin: 05/01/18 09:48 Dose: 40 mg Metoclopramide HCl (Reglan) 10 mg PO AC [facility] Last Admin: 05/01/18 16:55 Dose: 10 mg Metoprolol Tartrate (Lopressor) 25 mg PO DAILY [facility] Last Admin: 05/01/18 09:48 Dose: 25 mg Montelukast Sodium (Singulair) 10 mg PO DAILY [facility] Last Admin: 05/01/18 09:48 Dose: 10 mg Morphine Sulfate (Morphine) 2 mg IVP Q4H PRN PRN Reason: Pain, moderate (4-7) Last Admin: 05/01/18 17:05 Dose: 2 mg Morphine Sulfate (Morphine Extended Release Tab) 30 mg PO Q12 [facility] Last Admin: 05/01/18 20:44 Dose: 30 mg Ondansetron HCl (Zofran Inj) 4 mg IVP Q6H PRN PRN Reason: Nausea/Vomiting Last Admin: 04/29/18 14:20 Dose: 4 mg Ondansetron HCl (Zofran Inj) 4 mg IVP Q4H PRN PRN Reason: Nausea/Vomiting Last Admin: 04/30/18 13:39 Dose: 4 mg Pantoprazole Sodium (Protonix Ec Tab) 40 mg PO DAILY [facility] Last Admin: 05/01/18 09:47 Dose: 40 mg Polyethylene Glycol (Miralax) 17 gm PO DAILY [facility] Last Admin: 05/01/18 18:52 Dose: 17 gm Pregabalin (Lyrica) 75 mg PO DAILY [facility] Last Admin: 05/01/18 09:47 Dose: 75 mg - Labs Labs: 05/01/18 09:00 05/01/18 09:00 PT 14.8 SECONDS (9.4-12.5) H 04/27/18 21:33 INR 1.29 (0.93-1.08) H 04/27/18 21:33 APTT 20.6 Seconds (25.1-36.5) L 04/27/18 21:33 - Constitutional Appears: Well, No Acute Distress - Head Exam Head Exam: ATRAUMATIC, NORMAL INSPECTION, NORMOCEPHALIC - Eye Exam Eye Exam: Normal appearance - ENT Exam ENT Exam: Normal External Ear Exam - Neck Exam Neck Exam: Normal Inspection - Respiratory Exam Respiratory Exam: NORMAL BREATHING PATTERN - Cardiovascular Exam Cardiovascular Exam: absent: JVD - GI/Abdominal Exam GI & Abdominal Exam: absent: Distended Additional comments: Biliary stent drainage is light green color.No blood noted. - Rectal Exam Rectal Exam: Deferred - Exam Additional comments: Deferred. - Extremities Exam Extremities Exam: Normal Inspection - Back Exam Back Exam: NORMAL INSPECTION - Neurological Exam Neurological Exam: Alert, Awake - Psychiatric Exam Psychiatric exam: Normal Affect, Normal Mood - Skin Skin Exam: Normal Color Assessment and Plan - Assessment and Plan (Free Text) Assessment: Abdominal pain. Metastatic pancreatic cancer. Hypokalemia. Constipation. Drop in H & H may be secondary to receiving fluids. HTN. DM II. Hypovolemia. Plan: Will give morphine sulfate 1 mg IV now. Will give Ultram 50 mg PO now. If BP comes up, will give rest of 1 mg of morphine if pain still persists. Will monitor BP, if does not improve , will perform further work up. Will replace potassium. Will call PMD prn.
--- NOTE | 2018-05-01 23:45 | PN ---
DATE: 05/01/2018 PULMONARY PROGRESS NOTE ATTENDING PHYSICIAN: Georgina Ferrara MD SUBJECTIVE: She is sitting in the side of the bed. Family at bedside. She feels better. Pain is better. Nausea and vomiting is better. No headache, no rhinitis. No dysuria. No bowel movement today. No leg pain or leg swelling. OBJECTIVE: GENERAL: In no acute distress. VITAL SIGNS: Temperature is 98, heart rate 83, respiratory rate is 20, blood pressure 143/92, pulse ox 96% on room air. HEENT: Moist mucous membrane. Crowded airway. NECK: Supple. No JVD. LUNGS: Have fair airflow with rhonchi. HEART: S1 and S2. ABDOMEN: Positive bowel sounds. Epigastric and right upper quadrant tenderness. Has a biliary drainage catheter. EXTREMITIES: There is no edema. NEUROLOGIC: Awake, alert, follows simple command. MEDICATIONS: She is on metoprolol tartrate 25 mg daily, Lyrica 75 mg daily, morphine 2 mg every 4 hours p.r.n., also morphine extended release 30 mg every 12 hours, amylase and pancreas 50,000 units p.o. with the meals, Protonix 40 mg daily, Reglan 10 mg before meals, Singulair 10 mg daily, Tylenol p.r.n., Zestril 20 mg daily, Zofran p.r.n. LABORATORY DATA: Shows hemoglobin 9.9, hematocrit 29.9, WBC 13.9, platelet is 295. Sodium 139, potassium 3.5, chloride 103, bicarbonate 28, BUN 8, creatinine is 0.5, glucose 111, calcium 8.5, AST 78, ALT 20, alk phos is 206. Albumin is 2.7. Microbiology, blood culture has been negative. IMPRESSION AND PLAN: Metastatic pancreatic cancer with recurrent nausea and vomiting which is improved, also chronic pain syndrome, biliary obstruction requiring stenting and presently has a external drainage, hypertension, chronic obstructive lung disease, history of transient ischemic attack, diabetes, hepatitis C, constipation. Pulmonary point of view, doing okay. Continue bronchodilator. Keep head at 45 degrees. Pain management. Continue Reglan [id number]. Continue Zofran p.r.n. May add MiraLax 17 g p.o. daily. We will give Colace on a daily basis. Sequential compression device to lower extremity. Gastric prophylaxis. Thank you and we will follow with you Linnea Stephen MD [facility] # [id number]
[2018-05-02] MEDS ORDERED: Morphine 2 mg/ml ISec IVP STA ×2 (00:31→06:26)
--- NOTE | 2018-05-02 00:31 | PN ---
DATE: 05/01/2018 SUBJECTIVE: The patient is a 67 years old female. The patient is seen and examined at the bedside on 05/01/2018, looking comfortable, except that pain, sometimes nauseousness. No vomiting. No headache. No chest pain. No palpitation. No fever. No chills. PHYSICAL EXAMINATION: VITAL SIGNS: Temperature 98.2, pulse 83, blood pressure 120/80 , respiratory rate 20. HEENT: Head: Normocephalic and atraumatic. Eyes: PERRLA. Extraocular muscles intact. Conjunctivae clear. Nose patent. Mucous membrane moist. NECK: Supple. No carotid bruit. No JVD or thyromegaly. CHEST: Bilaterally symmetrical. HEART: S1 and S2 positive. LUNGS: Clear to auscultation. ABDOMEN: Soft. Bowel sounds present. No organomegaly. EXTREMITIES: No edema. No cyanosis. NEUROLOGIC: Patient is awake, alert. Moving all four extremities. No focal deficit. MEDICATIONS: Dulcolax, Lopressor, Lyrica, MiraLax, morphine sulfate extended release, Pancrease, Protonix, Reglan, Singulair, Tylenol, Zestril and Zofran. LABORATORY DATA: White blood cell is 13.9, hemoglobin 9.9, hematocrit noted , platelets 295. Sodium 139, potassium 3.5, BUN 8, creatinine 0.5, glucose 148, bilirubin 1.4. ASSESSMENT AND PLAN: Ms. Hortensia Love is a 67-year-old lady with leukocytosis, anemia, hypokalemia, hyperglycemia, abnormal liver function test, proteinuria, ketonuria, bilirubinuria, has metastatic pancreatic cancer with recurrent nausea, has biliary obstruction requiring stent, hypertension,chronic obstructive lung disease, history of transient ischemic attack, hepatitis C. Continue Zofran, Reglan, proton pump inhibitors. Dr. Parker is on the case. Reviewed Dr. Stephen's and Dr. Parker's notes. GI and DVT prophylaxis. Repeat labs. We will follow up. Georgina Ferrara MD [facility]
[2018-05-02] MEDS ORDERED: Potassium Chloride 20 mEq ER Tab PO ONE (04:53)
--- NOTE | 2018-05-02 09:37 | PN ---
DATE: 04/30/2018 SUBJECTIVE: Patient was seen and examined at the bedside, looking comfortable. No nausea, vomiting, or diarrhea. No hematuria, no hematochezia. No swelling of the legs. No chest pain, no palpitation. Still having abdominal pain, sometimes getting nauseous. Cough is better. Shortness of breath is better. PHYSICAL EXAMINATION: VITAL SIGNS: Temperature 97.4, pulse 89, respiratory rate 20, blood pressure 140/89, oxygenation 98. HEENT: Head normocephalic, atraumatic. Eyes PERRLA. Extraocular muscles intact. Conjunctivae clear. Nose patent. Mucous membrane moist. NECK: Supple. No carotid bruit. No JVD or thyromegaly. CHEST: Bilaterally symmetrical. HEART: S1 and S2 positive. LUNGS: Clear to auscultation. ABDOMEN: Soft. Bowel sounds present. No organomegaly. EXTREMITIES: No edema. No cyanosis. NEUROLOGICAL: The patient is awake and alert. Moving all four extremities. No focal deficits. MEDICATIONS: Lopressor, Lyrica, morphine sulfate, Pancrease, Protonix, Reglan, Singulair, Tylenol, Zestril, Zofran. LABORATORY DATA: We do not have recent lab today, but I reviewed old labs. ASSESSMENT AND PLAN: The patient is a 67-year-old lady with leukocytosis, anemia, iron-deficiency, history of chronic obstructive pulmonary disease, asthma, history of drug abuse, history of hypertension, transient ischemic attack, diabetes mellitus type 2, severe sepsis, pancreatic cancer stage III with metastasis to the lung and bones, status post chemotherapy, hepatitis C positive, colon surgery, appendectomy, colon resection, liver biopsy, history of weight loss, anxiety, depression. Now she has pain of malignancy, getting morphine, and nauseous, getting Zofran. Oncologist is on the case. Gastrointestinal and deep vein thrombosis prophylaxis. Repeat labs. We will follow up. Georgina Ferrara MD
[2018-05-02] MEDS: Amylase/Lipase/Protease 5,000 Units ECC PO SCH ×3 (09:45→16:50)
[2018-05-02] MEDS: Pantoprazole 40 mg EC Tab PO SCH (09:46)
[2018-05-02] MEDS: POLYETHYLENE GLYCOL 3350 17 GM/Dose PACKET PO SCH (09:46)
[2018-05-02] MEDS: Morphine 30 mg SR Tab PO SCH ×2 (09:55→21:23)
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
[2018-05-02] MEDS ORDERED: Morphine 2 mg/2 mL syringe IVP PRN (14:50)
[2018-05-02] MEDS: Morphine 2 mg/ml ISec IVP PRN (16:50)
--- NOTE | 2018-05-03 01:47 | PN ---
DATE: 05/02/2018 PULMONARY PROGRESS NOTE REFERRING PHYSICIAN: Georgina Ferrara MD SUBJECTIVE: She is lying in the bed, head at 45 degrees. Feels much better. Has bowel movement two or three since yesterday. Nausea has improved. Vomiting has improved. Still have abdominal pain. No cough. No sputum production. No headache. No leg pain or leg swelling. OBJECTIVE: GENERAL: In no acute distress. VITAL SIGNS: Temperature is 98, heart rate 77, respiratory rate is 18, blood pressure 131/96, pulse ox 96% on room air. HEENT: Moist mucous membrane. Crowded airway. NECK: Supple. No JVD. LUNGS: Have a fair airflow with rhonchi. HEART: S1 and S2. ABDOMEN: Positive bowel sound, some epigastric pain. Has external drainage of biliary drain. EXTREMITIES: There is no edema. NEUROLOGICAL: Awake, alert. Follows simple command. MEDICATIONS: She is on metoprolol tartrate 25 mg daily, Lyrica 75 mg daily, MiraLax 17 g daily, morphine 2 mg every 4 hours p.r.n. and morphine extended release 30 mg every 12 hours, amylase and pancreas enzymes with meals, Protonix 40 mg daily, Reglan 10 mg before meals, Singulair 10 mg daily, Tylenol p.r.n. basis, Zestril mg daily, Zofran p.r.n. basis. LABORATORY DATA: Shows blood sugar 161. Microbiology: Blood cultures have been negative. IMPRESSION AND PLAN: Metastatic pancreatic cancer with recurrent nausea and vomiting, chronic pain syndrome, recurrent biliary tract obstruction requiring stenting, presently had external drainage, chronic lung disease, constipation, history of transient ischemic attack, diabetes, hepatitis C. Pulmonary point of view, doing okay. We will discontinue Reglan. Continue Zofran p.r.n. Continue MiraLax. Continue inhaled bronchodilator. Pain management. Overall poor prognosis. Case discussed with Dr. Parker. palliative care followup. Thank you and we will follow with you Linnea Stephen MD
--- NOTE | 2018-05-03 04:21 | PN ---
DATE: 05/02/2018 SUBJECTIVE: The patient is seen and examined at the bedside. Boyfriend was sitting on the bedside also. Looking comfortable. No nausea, vomiting or diarrhea. Abdominal pain is same. No fever. No chills. No headache. No dizziness. No hematuria or hematochezia. PHYSICAL EXAMINATION: VITAL SIGNS: Temperature 98, pulse 83, blood pressure 120/80, respiratory rate 18, oxygen saturation 100%. HEENT: Head normocephalic, atraumatic. Eyes, PERRLA. Extraocular muscles are intact. Conjunctivae clear. Nose patent. Mucous membranes moist. NECK: Supple. No carotid bruits. No JVD or thyromegaly. CHEST: Bilaterally symmetrical. HEART: S1 and S2 positive. LUNGS: Clear to auscultation. ABDOMEN: Soft. Bowel sounds positive. No organomegaly. EXTREMITIES: No edema. No cyanosis. NEUROLOGIC: The patient is awake and alert. Moving all 4 extremities. No focal deficits. MEDICATIONS: Dulcolax, lisinopril, Reglan, Lopressor, Singulair, morphine, Zofran, Protonix, MiraLax. LABORATORY DATA: White blood cells 13.9, hemoglobin 9.9, hematocrit 29.9, platelets 295. Sodium 139, potassium 3.5, BUN 8, creatinine 0.5, glucose 111. ASSESSMENT AND PLAN: Ms. Hortensia Love is a 67-year-old female with leukocytosis, anemia, hyperglycemia, hypokalemia, with history of hepatitis C, metastatic pancreatic cancer, status post chemotherapy, status post biliary stent, was admitted with nausea, vomiting, abdominal pain, with placement of biliary stent with the internal and external drainage catheter, history of diabetes mellitus. Sonia Galarza consult called. She met with power of natural gas basis trader Shruthi Stevenson and patient's son. Family aware of the patient's diagnosis and poor prognosis. Family expressed interest in hospice care. Hospice care team came in the case. Family is in agreement with home hospice services. Right now, we will continue present treatment, pain management. I have discussion done with patient's son by myself including pain management. Gastrointestinal and deep vein thrombosis prophylaxis. Repeat labs. Continue MiraLax and Dulcolax as needed. Zofran as needed. We will follow up. Georgina Ferrara MD [facility]
[2018-05-03] MEDS: Morphine 2 mg/ml ISec IVP PRN ×4 (05:29→23:56)
--- NOTE | 2018-05-03 05:38 | PN ---
DATE: 05/02/2018 ONCOLOGY PROGRESS NOTE LOCATION: The patient is in room 575, bed 2. SUBJECTIVE: Ms. Love is a 67-year-old female with metastatic carcinoma of the pancreas and documented lung and liver metastasis, recently admitted with progressive jaundice, obstructed and blocked biliary stent which was removed and a new stent has been placed, with an internal and external drainage, was now admitted on 04/28/2018 with nausea, vomiting, diarrhea and abdominal pain. The pain is primarily in the left lower quadrant. Denies any fevers, chills, urinary symptoms, shortness of breath, chest pain or headache. Initial CAT scan of the abdomen done on 04/27/2018 showed pancreatic malignancy, pulmonary and hepatic metastases; pancreatic, retroperitoneal and retrocrural lymphadenopathy, with irregular thickening of the gallbladder wall, mural thickening of the right colonic wall, percutaneous transhepatic drainage catheter extending into the duodenum. Lab data at that time showed leukocytosis with anemia, elevated LFTs and alkaline phosphatase. On 04/29/2018, she had an IR procedure with successful percutaneous retrieval of obstructed migrated internal biliary stent and successful placement of an internal and external drain with new placement of a 14-[place] drain. PHYSICAL EXAMINATION: VITAL SIGNS: Reveals vital signs to be stable. T-max is 98.4, pulse is 83, blood pressure is 114/80, respirations 18, O2 sat is 100% on room air. Vital signs are stable, as stated in the chart. GENERAL: The patient is in significant pain. Pain scale of 0 to 10, at least 7 to 9 despite getting IV narcotics. HEENT: Head is normocephalic and atraumatic. Conjunctivae pale. Sclerae is anicteric. Pupils are equally reactive to light and accommodation. Examination of the oropharynx reveals no oropharyngeal lesions. Tongue is coated and dry. NECK: Supple. There is no adenopathy. No jugular venous distention is noted. LUNGS: Relatively clear to percussion and auscultation with decreased breath sounds in both bases. CARDIOVASCULAR: Reveals PMI to be in the fifth intercostal space inside the midclavicular line. S1 and S2 are normal. No gallop or murmur is heard. ABDOMEN: Mildly distended with tenderness in the left lower quadrant. Liver and spleen are not palpable. No rebound, rigidity or guarding is noted. EXTREMITIES: Reveals no cyanosis, clubbing or edema. GENITOURINARY AND RECTAL: Deferred. NEUROLOGIC: Reveals higher functions to be normal. No focal deficits are noted. Examination of the lower extremities, there is no significant pedal edema. SKIN: Turgor is normal. No skin lesions are noted. LABORATORY DATA: Reveals a white count of 13.9, hemoglobin 9.9, hematocrit 29.9, platelet count of 295,000. Sodium is 139, K is 3.5, chloride is 103, CO2 is 28, BUN is 8, creatinine 0.5 and blood sugar is 111. Labs from today reveals it to be unchanged. ASSESSMENT, NOTES AND PLAN: The patient is a 67-year-old -Filipino female with progressive metastatic stage IV carcinoma of the pancreas with progressive disease in the lung and liver and progressive intraabdominal disease. The patient is status post chemotherapy, the last chemotherapy was given about 4-1/2 to 5 months ago. The patient has not been able to get subsequently chemotherapy and has had a rapid succession of admissions to the hospital for issues without pain control or with obstruction or sepsis. In the past, goals of care and advanced care planning were discussed with the patient and the patient was not amenable to discussion about the resuscitation status or comfort care measures only. The patient is lethargic, feeling weak today, and patient wants us to discuss her overall care with her power of traffic law attorney, which is her [id number] and the patient's son. The family aware of the patient's poor condition. Family expresses interest in hospice care. I spoke to Regina is going to get Ulysses from [facility] in order to finalize the plan. Time spent with the family on the goals of hospice care and discussion was more than 80 minutes in correlating all the information and discussing with the family regarding hospice evaluation. We will try to give the patient morphine sulphate ER twice daily and 10 mg of morphine sulphate immediate release as needed for breakthrough pain. She will also continue Lyrica also. The patient also given a bowel prep regimen as well. Routine post-exam instructions have been given to the patient. Overall prognosis is guarded. Family is well aware. Freddie Parker MD [facility] # [id number]
--- NOTE | 2018-05-03 08:20 | CP.PCM.PN ---
Subjective - Date & Time of Evaluation Date of Evaluation: 05/03/18 Time of Evaluation: 09:00 - Subjective Subjective: [facility] Progress note for Dr. Parker Patient seen and examined at bedside. Patient was sitting up bent over in pain. She reported current pain regimen was ineffective and was requesting something more. Patient reported the pain is 9/10 and intermittent sharp in nature in her right side of her abdomen radiating to the right flank. She denied acute complaints fever, chills, headache, dizziness, chest pain, palpitations, SOB, cough, nausea, vomiting, bowel/bladder complaints, pain/swelling in her legs b/ l. Patient is to be seen by palliative care today regarding hospice. Objective - Vital Signs/Intake and Output Vital Signs (last 24 hours): Temp Pulse Resp BP Pulse Ox 98.5 F 105 H 20 124/87 99 05/02/18 23:19 05/02/18 23:19 05/02/18 23:19 05/02/18 23:19 05/02/18 23:19 Intake and Output: 05/03/18 05/03/18 06:59 18:59 Intake Total 180 Balance 180 - Medications Medications: Current Medications Acetaminophen (Tylenol 325mg Tab) 650 mg PO Q4H PRN PRN Reason: Pain, Mild (1-3) Last Admin: 05/01/18 00:32 Dose: 650 mg Amylase (Pancrease 39812 U-5000 [id number] U) 5,000 unit PO WM [facility] Last Admin: 05/02/18 16:50 Dose: 5,000 unit Bisacodyl (Dulcolax) 10 mg RC DAILY [facility] Last Admin: 05/02/18 09:45 Dose: Not Given Lisinopril (Zestril) 40 mg PO DAILY [facility] Last Admin: 05/02/18 09:46 Dose: 40 mg Metoprolol Tartrate (Lopressor) 25 mg PO DAILY [facility] Last Admin: 05/02/18 09:46 Dose: 25 mg Montelukast Sodium (Singulair) 10 mg PO DAILY [facility] Last Admin: 05/02/18 09:46 Dose: 10 mg Morphine Sulfate (Morphine Extended Release Tab) 30 mg PO Q12 [facility] Last Admin: 05/02/18 21:23 Dose: 30 mg Morphine Sulfate (Morphine) 2 mg IVP Q4 PRN PRN Reason: Pain, moderate (4-7) Last Admin: 05/03/18 05:29 Dose: 2 mg Ondansetron HCl (Zofran Inj) 4 mg IVP Q6H PRN PRN Reason: Nausea/Vomiting Last Admin: 04/29/18 14:20 Dose: 4 mg Ondansetron HCl (Zofran Inj) 4 mg IVP Q4H PRN PRN Reason: Nausea/Vomiting Last Admin: 04/30/18 13:39 Dose: 4 mg Pantoprazole Sodium (Protonix Ec Tab) 40 mg PO DAILY [facility] Last Admin: 05/02/18 09:46 Dose: 40 mg Polyethylene Glycol (Miralax) 17 gm PO DAILY [facility] Last Admin: 05/02/18 09:46 Dose: Not Given Pregabalin (Lyrica) 75 mg PO DAILY [facility] Last Admin: 05/02/18 09:46 Dose: 75 mg - Labs Labs: 05/01/18 09:00 05/01/18 09:00 PT 14.8 SECONDS (9.4-12.5) H 04/27/18 21:33 INR 1.29 (0.93-1.08) H 04/27/18 21:33 APTT 20.6 Seconds (25.1-36.5) L 04/27/18 21:33 - Additional Findings Additional findings: - Constitutional Appears: Non-toxic, No Acute Distress, Chronically Ill - Head Exam Head Exam: ATRAUMATIC, NORMAL INSPECTION, NORMOCEPHALIC - Eye Exam Eye Exam: EOMI, Normal appearance, PERRL. absent: Conjunctival injection, Scleral icterus - ENT Exam ENT Exam: Mucous Membranes Moist - Respiratory Exam Respiratory Exam: Clear to Ausculation Bilateral, NORMAL BREATHING PATTERN. absent: Accessory Muscle Use, Rales, Rhonchi, Wheezes, Respiratory Distress - Cardiovascular Exam Cardiovascular Exam: +S1, +S2 - GI/Abdominal Exam GI & Abdominal Exam: Soft, Tenderness (R sided), Normal Bowel Sounds Additional comments: drain in place - Rectal Exam Rectal Exam: Deferred - Extremities Exam Extremities Exam: Normal Inspection. absent: Pedal Edema - Neurological Exam Neurological Exam: Alert, Awake, Oriented x3 - Psychiatric Exam Psychiatric exam: Normal Affect, Normal Mood - Skin Skin Exam: Dry, Intact Assessment and Plan - Assessment and Plan (Free Text) Assessment: 67yo female PMHx pancreatic ca with mets, HTN, DM2, COPD, sleep apnea, colon resection, and TIA presented to [facility] with intractable pain. Patient to be seen by Regina Paramonte palliative care to discuss goals of care and hospice eval. Patient to be on Morphine 10mg IR po prn for break through pain and lyrica daily. Will f/u regarding hospice eval. Continue management as per primary. Discussed with Dr. Keith Ruiz PGY2
[2018-05-03] MEDS: Amylase/Lipase/Protease 5,000 Units ECC PO SCH ×3 (08:54→17:10)
[2018-05-03] MEDS: POLYETHYLENE GLYCOL 3350 17 GM/Dose PACKET PO SCH (10:03)
[2018-05-03] MEDS: Morphine 30 mg SR Tab PO SCH ×2 (10:04→21:44)
[2018-05-03] MEDS: Pantoprazole 40 mg EC Tab PO SCH (10:05)
--- NOTE | 2018-05-04 00:09 | PN ---
DATE: 05/03/2018 PULMONARY PROGRESS NOTE REFERRING PHYSICIAN: Georgina Ferrara MD SUBJECTIVE: She is sitting side of the bed. Daughter and family at the bedside. Night was unremarkable. Still has some abdominal pain. Overall feels better. No cough. No sputum production. No diarrhea. Has bowel movement. No leg pain or leg swelling. OBJECTIVE: GENERAL: In no acute distress. VITAL SIGNS: Temperature is 98, heart rate 62, respiratory rate is 20, blood pressure 120/53, pulse of 99% on room air. HEENT: Moist mucous membrane. Crowded airway. NECK: Supple. No JVD. LUNGS: Has a fair airflow with rhonchi. HEART: S1, S2. ABDOMEN: Soft. Mild epigastric pain. Biliary drainage, draining well. EXTREMITIES: There is no edema. NEUROLOGIC: Awake and alert. Follows simple command. MEDICATIONS: She is on Dulcolax 10 mg rectally daily, metoprolol tartrate 25 mg daily, Lyrica 75 mg daily, MiraLax 17 g daily, morphine 2 mg every 4 hours p.r.n., morphine sulfate extended release 30 mg every 12 hours, amylase and pancreas 5000 units with meals, Protonix 40 mg daily, Singulair 10 mg daily, Tylenol p.r.n., Zestril 40 mg daily, Zofran 4 mg every 4 hours p.r.n. LABORATORY DATA: Shows blood sugar is 140. Microbiology, blood culture has been negative. IMPRESSION AND PLAN: Metastatic pancreatic cancer with recurrent nausea and vomiting, chronic pain syndrome, recurrent biliary tract obstruction requiring a biliary drainage percutaneously, chronic lung disease, constipation, history of transient ischemic attack, diabetes, hepatitis C. Spoke to family at bedside. All the questions answered. Continue bronchodilator, gastric prophylaxis, Zofran p.r.n., pain management. The patient seen by palliative care. Hospice is being considered. Overall poor prognosis. Thank you and we will follow with you. Linnea Stephen MD
--- NOTE | 2018-05-04 03:01 | PN ---
DATE: 05/03/2018 SUBJECTIVE: The patient is 67-year-old female. The patient is seen and examined on bedside, looking comfortable. Appetite is getting better. No nausea, vomiting. Does not have bowel movements, got suppositories. No headache, no dizziness. No chest pain, no palpitations. No shortness of breath, no coughing. PHYSICAL EXAMINATION: VITAL SIGNS: Temperature 98.5, pulse 105, respiratory rate 20, blood pressure 124/87, pulse oximeter 99. HEENT: Head normocephalic, atraumatic. Eyes, PERRLA. Extraocular muscles intact. Conjunctivae clear. Nose patent. Mucous membrane moist. NECK: Supple. No carotid bruit. No JVD or thyromegaly. CHEST: Bilaterally symmetrical. HEART: S1, S2 positive. LUNGS: Clear to auscultation. ABDOMEN: Soft. Bowel sounds positive. No organomegaly. EXTREMITIES: No edema, no cyanosis. NEUROLOGIC: The patient is awake, alert, moving all 4 extremities. No focal deficits. MEDICATIONS: Tylenol, amylase, Dulcolax, Zestril, Lopressor, Singulair, morphine, Zoloft, Zofran, Protonix, MiraLax, Lyrica. LABORATORY DATA: White blood cell is 13.9, hemoglobin 9.9, hematocrit 29.9, platelets 295. Sodium 139, potassium 3.5, BUN 8, creatinine 0.5, glucose 111. ASSESSMENT AND PLAN: Ms. Hortensia Love is a 67-year-old lady -Thai with past medical history of pancreatic cancer with metastasis to lungs and brain, hypertension, chronic obstructive pulmonary disease, sleep apnea syndrome, colon infection, transient ischemic attack, has intractable abdominal pain, and nausea, vomiting. Seen by rm morejon for palliative care to discuss goals of care and hospice evaluation. The patient is on morphine 10 mg IR for breakthrough pain, getting Lyrica, awaiting for hospice evaluation. Continue management as per family. Discussion done with the patient's son and the patient's [id number]. Gastric and deep venous thrombosis prophylaxis. Repeat labs. We will follow up. Georgina Ferrara MD [facility] # [id number]
--- NOTE | 2018-05-04 08:30 | CP.PCM.PN ---
Subjective - Date & Time of Evaluation Date of Evaluation: 05/04/18 Time of Evaluation: 08:00 - Subjective Subjective: HemeOn Progress note for Dr. Parker Patient seen and examined sitting up in bed with son and [id number] at bedside. Patient continues to complain of pain in her R abdomen radiating to her right flank. Biliary output ~70cc. Patient reports decreased appetite although she tries to eat. Denies other complaints headache, chest pain, SOB, cough, nausea, vomiting, pain/swelling in her legs b/l. Objective - Vital Signs/Intake and Output Vital Signs (last 24 hours): Temp Pulse Resp BP Pulse Ox 98.2 F 92 H 18 135/89 94 L 05/03/18 22:00 05/03/18 22:00 05/03/18 22:00 05/03/18 22:00 05/03/18 22:00 Intake and Output: 05/04/18 05/04/18 06:59 18:59 Intake Total 540 Output Total 70 Balance 470 - Medications Medications: Current Medications Acetaminophen (Tylenol 325mg Tab) 650 mg PO Q4H PRN PRN Reason: Pain, Mild (1-3) Last Admin: 05/01/18 00:32 Dose: 650 mg Amylase (Pancrease 93480 U-5000 [id number] U) 5,000 unit PO WM [facility] Last Admin: 05/03/18 17:10 Dose: 5,000 unit Bisacodyl (Dulcolax) 10 mg RC DAILY [facility] Last Admin: 05/03/18 10:03 Dose: 10 mg Lisinopril (Zestril) 40 mg PO DAILY [facility] Last Admin: 05/03/18 10:05 Dose: 40 mg Metoprolol Tartrate (Lopressor) 25 mg PO DAILY [facility] Last Admin: 05/03/18 10:04 Dose: 25 mg Montelukast Sodium (Singulair) 10 mg PO DAILY [facility] Last Admin: 05/03/18 10:05 Dose: 10 mg Morphine Sulfate (Morphine Extended Release Tab) 30 mg PO Q12 [facility] Last Admin: 05/03/18 21:44 Dose: 30 mg Morphine Sulfate (Morphine) 2 mg IVP Q4 PRN PRN Reason: Pain, moderate (4-7) Last Admin: 05/03/18 23:56 Dose: 2 mg Ondansetron HCl (Zofran Inj) 4 mg IVP Q6H PRN PRN Reason: Nausea/Vomiting Last Admin: 05/03/18 18:18 Dose: 4 mg Ondansetron HCl (Zofran Inj) 4 mg IVP Q4H PRN PRN Reason: Nausea/Vomiting Last Admin: 04/30/18 13:39 Dose: 4 mg Pantoprazole Sodium (Protonix Ec Tab) 40 mg PO DAILY [facility] Last Admin: 05/03/18 10:05 Dose: 40 mg Polyethylene Glycol (Miralax) 17 gm PO DAILY [facility] Last Admin: 05/03/18 10:03 Dose: 17 gm Pregabalin (Lyrica) 75 mg PO DAILY [facility] Last Admin: 05/03/18 10:03 Dose: 75 mg - Labs Labs: 05/01/18 09:00 05/01/18 09:00 PT 14.8 SECONDS (9.4-12.5) H 04/27/18 21:33 INR 1.29 (0.93-1.08) H 04/27/18 21:33 APTT 20.6 Seconds (25.1-36.5) L 04/27/18 21:33 Assessment and Plan - Assessment and Plan (Free Text) Assessment: 67yo female PMHx pancreatic ca with mets, HTN, DM2, COPD, sleep apnea, colon resection, and TIA presented to [facility] ED with intractable pain. Patient to be d/c in AM for home hospice as per pall care. Continue current pain management. Continue management as per primary. Discussed with Dr. Keith Ruiz PGY2
[2018-05-04] MEDS: Amylase/Lipase/Protease 5,000 Units ECC PO SCH ×3 (09:12→17:19)
[2018-05-04] MEDS: POLYETHYLENE GLYCOL 3350 17 GM/Dose PACKET PO SCH (09:12)
[2018-05-04] MEDS: Pantoprazole 40 mg EC Tab PO SCH (09:13)
[2018-05-04] MEDS: Morphine 30 mg SR Tab PO SCH ×3 (09:15→21:23)
[2018-05-04] MEDS: Morphine 2 mg/ml ISec IVP PRN ×4 (10:53→21:24)
--- NOTE | 2018-05-04 16:27 | PN ---
DATE: 05/04/2018 PULMONARY PROGRESS NOTE REFERRING PHYSICIAN: Georgina Ferrara MD. SUBJECTIVE: She is sitting side of the bed, having lunch. Night was unremarkable. Feels much better. Pain is under control with the medication. No nausea, no vomiting. Biliary drainage working well. No leg pain or leg swelling. PHYSICAL EXAMINATION: GENERAL: In no acute distress. VITAL SIGNS: Temperature is 98, heart rate is 82, respiratory rate is 20, blood pressure 119/80, pulse ox 100% on room air. HEENT: Moist mucous membrane. No ulcer or thrush noted. NECK: Supple. No JVD. LUNGS: Have a fair airflow with rhonchi. HEART: S1 and S2. ABDOMEN: Positive bowel sounds. Right upper quadrant mild tenderness. EXTREMITIES: There is no edema. NEUROLOGIC: Awake, alert, and follows simple commands. MEDICATIONS: She is on Dulcolax 5 mg p.o. daily, metoprolol tartrate 25 mg daily, Lyrica 75 mg daily, MiraLax 17 g daily, morphine 2 mg every 4 hours p.r.n., morphine extended release 30 mg every 12 hours, amylase pancreas 50,000 units with the meals, Protonix 40 mg daily, Singulair 10 mg daily, Tylenol p.r.n., Zestril 40 mg daily, Zofran p.r.n. basis. LABORATORY DATA: Reviewed. Blood sugar is 186. Microbiology, blood culture has been negative. IMPRESSION AND PLAN: Metastatic pancreatic cancer with recurrent nausea and vomiting, chronic pain syndrome, recurrent biliary tract obstruction secondary to tumor overgrowth, chronic lung disease, constipation, history of transient ischemic attacks, hepatitis C, diabetes. Clinically, she is comfortable. Arrangement is being made for home hospice. Continue pain management, bronchodilator, gastric prophylaxis, sequential compression devices to lower extremity. Overall poor prognosis. Thank you and we will follow with you. Linnea Stephen MD
[2018-05-05] MEDS: Morphine 2 mg/ml ISec IVP PRN ×2 (05:43→11:27)
--- NOTE | 2018-05-05 05:44 | PN ---
DATE: 05/04/2018 SUBJECTIVE: Patient was seen and examined at the bedside on 05/04/2018, looking comfortable. Pain is getting better. Night was unremarkable. Feeling much better. No nausea, vomiting or diarrhea. No hematuria or hematochezia. No headache. No dizziness. No chest pain. No swelling of the leg. PHYSICAL EXAMINATION: VITAL SIGNS: Temperature 98, heart rate 82, respiratory rate 20, blood pressure 120/80, pulse oximetry 100% on room air. HEENT: Head normocephalic and atraumatic. Eyes, PERRLA. Extraocular muscles are intact. Conjunctivae clear. Nose patent. Mucous membrane moist. NECK: Supple. No carotid bruit. No JVD or thyromegaly. CHEST: Bilaterally symmetrical. HEART: S1 and S2 positive. LUNGS: Have fair airflow with rhonchi. ABDOMEN: Soft. Bowel sounds positive. No organomegaly. EXTREMITIES: No edema. No cyanosis. NEUROLOGIC: The patient is awake and alert. Follows simple commands. MEDICATIONS: Dulcolax, metoprolol, Lyrica, MiraLax, morphine, amylase, Pancrease, Protonix, Singulair, Tylenol, Zestril and Zofran. LABORATORY DATA: Blood sugar 186. We do not have recent lab today, but I reviewed the old labs. ASSESSMENT AND PLAN: Ms. Hortensia Love is a 67-year-old female with metastatic pancreatic cancer with recurrent nausea and vomiting; chronic pain syndrome; recurrent biliary tract obstruction secondary to tumor overgrowth; chronic lung disease; constipation; history of transient ischemic attacks; hepatitis C, never got treatment; diabetes mellitus, uncontrolled. Patient is comfortable, getting arrangement for hospice for home. Meanwhile continue present treatment. Gastrointestinal and deep venous thrombosis prophylaxis. Repeat labs. We will follow up. Discussion done with the family. Georgina Ferrara MD
[2018-05-05] MEDS: Amylase/Lipase/Protease 5,000 Units ECC PO SCH ×2 (08:20→13:00)
[2018-05-05] MEDS: Morphine 30 mg SR Tab PO SCH (09:53)
[2018-05-05] MEDS: Pantoprazole 40 mg EC Tab PO SCH (09:53)
[2018-05-05] MEDS: POLYETHYLENE GLYCOL 3350 17 GM/Dose PACKET PO SCH (09:54)
[2018-05-05] MEDS ORDERED: Bisacodyl 5mg EC Tab PO SCH (10:00)
--- NOTE | 2018-05-05 10:28 | CP.PCM.PN ---
Objective - Vital Signs/Intake and Output Vital Signs (last 24 hours): Temp Pulse Resp BP Pulse Ox 98.3 F 91 H 20 135/90 100 05/05/18 06:00 05/05/18 09:53 05/05/18 06:00 05/05/18 09:53 05/05/18 06:00 Intake and Output: 05/05/18 05/05/18 06:59 18:59 Output Total 20 Balance -20 - Medications Medications: Current Medications Acetaminophen (Tylenol 325mg Tab) 650 mg PO Q4H PRN PRN Reason: Pain, Mild (1-3) Last Admin: 05/04/18 19:52 Dose: 650 mg Amylase (Pancrease 23478 U-5000 U-[id number] U) 5,000 unit PO WM [facility] Last Admin: 05/05/18 08:20 Dose: 5,000 unit Bisacodyl (Dulcolax) 5 mg PO DAILY [facility] Last Admin: 05/05/18 09:53 Dose: 5 mg Lisinopril (Zestril) 40 mg PO DAILY [facility] Last Admin: 05/05/18 09:54 Dose: 40 mg Metoprolol Tartrate (Lopressor) 25 mg PO DAILY [facility] Last Admin: 05/05/18 09:53 Dose: 25 mg Montelukast Sodium (Singulair) 10 mg PO DAILY [facility] Last Admin: 05/05/18 09:53 Dose: 10 mg Morphine Sulfate (Morphine Extended Release Tab) 30 mg PO Q12 [facility] Last Admin: 05/05/18 09:53 Dose: 30 mg Morphine Sulfate (Morphine) 2 mg IVP Q4 PRN PRN Reason: Pain, moderate (4-7) Last Admin: 05/05/18 05:43 Dose: 2 mg Ondansetron HCl (Zofran Inj) 4 mg IVP Q6H PRN PRN Reason: Nausea/Vomiting Last Admin: 05/03/18 18:18 Dose: 4 mg Ondansetron HCl (Zofran Inj) 4 mg IVP Q4H PRN PRN Reason: Nausea/Vomiting Last Admin: 05/05/18 08:20 Dose: 4 mg Pantoprazole Sodium (Protonix Ec Tab) 40 mg PO DAILY [facility] Last Admin: 05/05/18 09:53 Dose: 40 mg Polyethylene Glycol (Miralax) 17 gm PO DAILY [facility] Last Admin: 05/05/18 09:54 Dose: Not Given Pregabalin (Lyrica) 75 mg PO DAILY [facility] Last Admin: 05/05/18 09:54 Dose: 75 mg - Labs Labs: 05/01/18 09:00 05/01/18 09:00 PT 14.8 SECONDS (9.4-12.5) H 04/27/18 21:33 INR 1.29 (0.93-1.08) H 04/27/18 21:33 APTT 20.6 Seconds (25.1-36.5) L 04/27/18 21:33
[2018-05-05 15:13] VITALS: BP 145/98; PULSE 75; RESP 18; TEMP 98; O2SAT 99
--- NOTE | 2018-05-05 17:02 | PN ---
DATE: 05/05/2018 PULMONARY PROGRESS NOTE REFERRING PHYSICIAN: Georgina Ferrara MD SUBJECTIVE: Sitting side of the bed, comfortable, manageable pain. No nausea. Had a bowel movement last night. Short of breath with exertion. No cough. No leg pain or leg swelling. OBJECTIVE: GENERAL: In no acute distress. VITAL SIGNS: Temperature is 98, heart rate 75, respiratory rate is 18, blood pressure 145/98, pulse ox 99% on room air. HEENT: Moist mucous membrane. Crowded airway. NECK: Supple. No JVD. LUNGS: Fair airflow with rhonchi. HEART: S1 and S2. ABDOMEN: Positive bowel sounds. Mild epigastric pain. Has a biliary drainage draining well. EXTREMITIES: There is no edema. NEUROLOGIC: Awake, alert, and follows simple command. MEDICATIONS: She is on Benadryl 25 mg p.r.n., Dulcolax 5 mg at bedtime, metoprolol tartrate 25 mg daily, Lyrica 75 mg daily, MiraLax 17 g daily, morphine sulfate 2 mg every 4 hours p.r.n., morphine extended release 30 mg every 12 hours, amylase/pancreas 5000 units with the meals, Protonix 40 mg daily, Singulair 10 mg daily, Tylenol p.r.n. basis, lisinopril 40 mg daily, Zofran p.r.n. LABORATORY DATA: Reviewed. Blood sugar this morning 121. Microbiology: Blood culture has been negative. IMPRESSION AND PLAN: Metastatic pancreatic cancer with recurrent nausea, vomiting, chronic pain syndrome, recurrent biliary tract obstruction requiring percutaneous drainage placement, transient ischemic attacks, hepatitis C, diabetes, chronic lung disease. Overall poor prognosis. Being discharged home with hospice and supportive care. Continue p.r.n. and laxative. Thank you and we will follow with you. Linnea Stephen MD
== END 2018-05-05 16:01 | disposition hospice, home (50) | DRG 435 ==
LOC: ED 19:07 → ERH 04-28 00:12 → 5RSO 04-28 02:23
PROVIDERS: ADMIT Internal Medicine; ATTEND Internal Medicine
PROC: 0F2BX0Z Change Drainage Device in Hepatobiliary Duct, External Approach (ICD-10-PCS; principal; 2018-04-29)
DX: C25.9 Malignant neoplasm of pancreas, unspecified (principal); K83.1 Obstruction of bile duct; C78.00 Secondary malignant neoplasm of unspecified lung; C78.7 Secondary malignant neoplasm of liver and intrahepatic bile duct; C79.51 Secondary malignant neoplasm of bone; N39.0 Urinary tract infection, site not specified; I10 Essential (primary) hypertension; E78.00 Pure hypercholesterolemia, unspecified; E11.40 Type 2 diabetes mellitus with diabetic neuropathy, unspecified; G89.3 Neoplasm related pain (acute) (chronic); K21.9 Gastro-esophageal reflux disease without esophagitis; G89.4 Chronic pain syndrome; F41.9 Anxiety disorder, unspecified; F32.9 Major depressive disorder, single episode, unspecified; F17.200 Nicotine dependence, unspecified, uncomplicated; E86.1 Hypovolemia; E11.65 Type 2 diabetes mellitus with hyperglycemia; E87.6 Hypokalemia; J44.9 Chronic obstructive pulmonary disease, unspecified; K59.00 Constipation, unspecified; G47.30 Sleep apnea, unspecified; D50.9 Iron deficiency anemia, unspecified; B19.20 Unspecified viral hepatitis C without hepatic coma; Z86.73 Personal history of transient ischemic attack (TIA), and cerebral infarction without residual deficits; Z92.21 Personal history of antineoplastic chemotherapy; Z79.84 Long term (current) use of oral hypoglycemic drugs